=== PATIENT | female | born 1940 | race Caucasian/White ===

== ENCOUNTER → 2018-05-15 00:24 | Outpatient (CLI) | payer MEDICARE, BC, SELFPAY ==
--- NOTE | 2018-05-15 14:35 | DI.REPORT_ITS ---
SYMPTOM/DIAGNOSIS: SCREENING Z12.31 MAMMOGRAMS: Mammograms were interpreted according to the usual protocol including computer analysis with CAD system, tomosynthesis and C view imaging. Comparison with prior examinations. Breast density B. No masses or microcalcifications are seen. There is nothing to suggest malignancy. IMPRESSION: Negative mammogram. Category 1 -B. Routine screening is recommended. SA ASSESSMENT OF FINDINGS: Negative. Category 1. Patient will receive a letter notifying them of these results. BI-RADS category B. There are scattered areas of fibroglandular density.
--- NOTE | 2018-05-15 15:25 | DI.REPORT_ITS ---
SYMPTOMS/DIAGNOSIS: OSTEOPOROSIS, M85.88, CHRONIC PREDNISONE DEXA SCAN WITH JAI: Comparison is made with exams from 2007 and 2016. The JAI image shows no evidence of compression fractures. Some of the vertebral bodies are not well profiled due to scoliosis. There is a levoscoliosis and degenerative disc changes of increased sclerosis on the right side from L2 through L4. The findings are not significantly changed from 2016. There are no significant degenerative changes visible on the 2007 exam. The bone mineral density measurements of the lumbar spine correspond to a total Z score of 0, in the normal range. The least dense vertebral body is L1 with a T score of -1.0. Total bone mineral density is increased 7.4% when compared with 2016 and 15.1% when compared with 2007. The bone mineral density measurements of the left hip correspond to a total T score and femoral neck T score of -1.5, in the osteopenic range. This is not significantly changed from 2016, but is a 5.5% decrease when compared with 2006. The bone mineral density measurements of the left forearm correspond to a total T score of -2.9 and a T score of the distal third of the forearm of -3.8. This is not significantly changed from 2016. The forearm was not analyzed in 2007. IMPRESSION: Normal bone mineral density of the lumbar spine with increased density when compared with previous exams, part of which could be secondary to increasing degenerative changes and scoliosis. Osteopenia of the left hip. Osteoporosis of the left forearm without significant change.
== END ==
PROVIDERS: PCP Family Medicine; Visit Provider Family Medicine
DX: Z12.31 Encounter for screening mammogram for malignant neoplasm of breast (principal); M81.0 Age-related osteoporosis without current pathological fracture; M85.88 Other specified disorders of bone density and structure, other site; Z79.52 Long term (current) use of systemic steroids
CPT/HCPCS: 77063; 77067; 77080

== ENCOUNTER 2018-11-10 00:40 | Outpatient (CLI) | payer MEDICARE, BC, SELFPAY ==
--- NOTE | 2018-11-10 14:18 | DI.US_ITS ---
SYMPTOMS/DIAGNOSIS: MASS ON RT SIDE OF NECK, R22.1 SOFT TISSUE NECK ULTRASOUND: The palpable abnormality in the right supraclavicular area was scanned. There is a question of a 3.3 x 1.8 x 1.2 cm ill defined area of fatty attenuation when compared with the contralateral side. No fluid collection is seen. A neck CT is recommended for further evaluation.
== END 2018-11-10 01:00 ==
PROVIDERS: PCP Family Medicine; Visit Provider Family Medicine
DX: R22.1 Localized swelling, mass and lump, neck (principal)
CPT/HCPCS: 76536

== ENCOUNTER 2018-11-18 00:53 | Outpatient (CLI) | payer MEDICARE, BC, SELFPAY ==
--- NOTE | 2018-11-18 11:47 | DI.CT_ITS ---
SYMPTOMS/DIAGNOSIS: F/U US, NECK MASS, R22.1 CT SCAN OF THE NECK: Comparison is made with ultrasound dated which questioned an abnormality in the supraclavicular area. The patient questions a right sided mass. A marker was placed over this location. No mass is identified. There is no evidence of a discrete lipoma. Mild scarring is seen in the lung apices. A cyst is again noted in the anterior mediastinal fat anterior to the aorta, unchanged when compared with a [address] The submandibular, parotid and thyroid glands appear normal. The sinuses are clear. The orbits are unremarkable. Degenerative changes are seen in the lower cervical spine. The sinuses and mastoid air cells appear clear. The visualized portions of the brain are grossly normal. IMPRESSION: No evidence of a mass in the right supraclavicular area. No acute abnormality is identified.
[2018-11-18 12:29] LABS: ALT 33 U/L (12-78); AST 20 U/L (15-37); Albumin 4.1 g/dL (3.4-5.0); Alkaline Phosphatase 42 U/L (46-116); BUN 27 mg/dL (7-18); Bilirubin, Total 0.8 mg/dL (0.2-1.0); CREATININE 1.14 mg/dL (0.55-1.02); Calcium 9.6 mg/dL (8.5-10.1); Chloride 102 mmol/L (98-107); Estimated GFR 46.22 (mL/min/1.73m2); Glucose 97 mg/dL (70-100); Potassium 3.8 mmol/L (3.5-5.1); Sodium 142 mmol/L (136-145); Total Protein 7.6 g/dL (6.4-8.2)
[2018-11-18] MEDS: Omnipaque 350 MG/ML 100 ML BTL IV (13:49)
[2018-11-20 06:31] LABS: Vitamin D 25 Total 52.3 ng/ml (30-100)
== END 2018-11-18 01:13 ==
PROVIDERS: PCP Family Medicine; Visit Provider Family Medicine
DX: R22.1 Localized swelling, mass and lump, neck (principal); I10 Essential (primary) hypertension; E55.9 Vitamin D deficiency, unspecified
CPT/HCPCS: 36415; 70491; 80053; 82306; 82565; J3490

== ENCOUNTER 2019-05-14 00:59 | Outpatient (RCR) | payer MEDICARE, BC, SELFPAY ==
[2019-05-14] MEDS: Normal Saline Flush 10 ML SYR IVP (09:04)
== END 2019-06-13 23:59 | disposition home or self-care (01) ==
LOC: INF 00:59
PROVIDERS: PCP Family Medicine; Visit Provider Family Medicine
DX: M81.0 Age-related osteoporosis without current pathological fracture (principal); T38.0X5D Adverse effect of glucocorticoids and synthetic analogues, subsequent encounter
CPT/HCPCS: 96365; J3489

== ENCOUNTER 2019-11-16 01:35 | Outpatient (CLI) | payer MEDICARE, BC, SELFPAY ==
--- NOTE | 2019-11-16 14:00 | DI.US_ITS ---
APPROVED REPORT EXAM: Comprehensive 2D, Doppler, and color-flow Echocardiogram Patient Location: Out-Patient Custom Grinder: Hannah Gaspar RDCS ([facility]) Rhythm: NSR Indications: cardiac murmur r01.1, hypertension i10 Conclusion Left Ventricle : The left ventricle is normal size. The left ventricular systolic function is normal. The left ventricular ejection fraction is within the normal range. Mild left ventricular hypertrophy . There is normal LV segmental wall motion. Diastolic function was normal but there was evidence of i mpaired relaxation. LVEF is estimated to be 65-70%. Right Ventricle : The right ventricle is normal size. The right ventricular systolic function appears normal. Atria : The left atrium size is normal. The right atrium size is normal. Aortic Valve : Moderate aortic valve sclerosis. The aortic valve is likely tricuspid. Moderate to se merritt aortic stenosis (mean gradient 37 mmHg, aortic valve area by VTI was 1.02 cm???). Mild aortic re gurgitation. Mitral Valve : Mild mitral annular calcification. Trace to mild mitral regurgitation. No evidence of mitral valve stenosis. Tricuspid Valve : The tricuspid valve is not well visualized. Trace to mild tricuspid regurgitation. We have no prior echocardiogram on record for comparison. Wall motion Left Ventricle The left ventricle is normal size. The left ventricular systolic function is normal. The left ventric ular ejection fraction is within the normal range. Mild left ventricular hypertrophy. There is normal LV segmental wall motion. Diastolic function was normal but there was evidence of impaired relaxatio n. LVEF is estimated to be 65-70%. Right Ventricle The right ventricle is normal size. The right ventricular systolic function appears normal. Atria The left atrium size is normal. The right atrium size is normal. Aortic Valve Moderate aortic valve sclerosis. The aortic valve is likely tricuspid. Moderate to severe aortic sten osis (mean gradient 37 mmHg, aortic valve area by VTI was 1.02 cm???). Mild aortic regurgitation. Mitral Valve Mild mitral annular calcification. No evidence of mitral valve stenosis. Trace to mild mitral regurgi tation. Tricuspid Valve The tricuspid valve is not well visualized. Trace to mild tricuspid regurgitation. Pulmonic Valve Pulmonic valve is not well visualized. Great Vessels The aortic root is normal in size. The IVC is dilated, but collapses >50 % with inspiration. Estimate d RVSP is 28-36 mmHg. Pericardium There is no pericardial effusion. 2D Dimensions IVSd 1.25 cm F: 0.6-1.0 LV EDV A2C 58.1 mL PWd 1.20 cm F: 0.6 - 1.0 LV EDV A4C 54.6 mL LVDd 4.00 cm F: 3.8 - 5.2 LA Volume Index Biplane 25.2 mL/m2 LVDs 2.20 cm F: 2.2 - 3.5 LA Area A4C 16.27 cm2 Aortic Root 3.25 cm F: 2.7 - 3.3 LA Area A2C 15.49 cm2 RA Area A4C 11.14 cm2 EF AP4 73.1 % LVOT 2.15 cm (M/F) 1.5-2.5 EF AP2 63.3 % Ascending Aorta 3.40 cm F: 2.3 - 3.1 EF BP 66.6 % LVEF (Teich) 75.9 % IVC 2.30 cm LVEF (Gilliam's) 66.62 % F: 54 - 74 TAPSE 1.85 cm (M/F) <1.7 LV Volume 45.69 mL F: 46 - 106 LV Volume Index 25.38 mL/m2 F: 29 - 61 FS 44.15 % LV Diastology MV E' medial 0.060 (>0.07 m/s) E/A Ratio 0.6 LV E/e MED 13.95 (<14) TR Peak Velocity 2.69 m/s MV E' lateral 0.068 (>0.1 m/s) LV E/e LAT 12.45 (<14) LA vol/ BSA A2C s A-L 21.9 mL/m2 LA vol/ BSA A4C s A-L 26.4 mL/m2 Aortic Valve LVOT Area 3.77 cm2 AoV Area Vmax 0.98 cm2 LVOT Vmax 1.01 m/s AoV Area/ BSA (Vmax) 0.54 cm2/m2 LVOT Mean Javi. 0.82 m/s REGAN Mean Javi. 1.05 cm2 LVOT Peak Gr. 4.1 mmHg REGAN Mean Javi. Index 0.58 cm2/m2 LVOT Mean Gr. 2.8 mmHg LVOT VTI 0.237 m AoV Vmax 3.91 (0.5-1.3 m/s) AoV Mean Javi. 2.93 m/s AoV Peak Grad 61.2 mmHg LVOT SV 89.44 mL AoV Mean Grad 37.5 (<5 mmHg) AoV VTI 0.881 (0.18-0.25 m) VTI Ratio 0.27 AoV Area VTI 1.02 (2.5-4.5 cm2) AoV Area/ BSA (VTI) 0.56 cm/m2 Mitral Valve MV E Max Javi. 0.84 (0.4-1.3 m/s) MVA VTI 5.69 (4.0-6.0 cm2) MV A Velocity 1.30 (0.4-1.3 m/s) RVOT Peak Gr. 3.02 mmHg E/A Ratio 0.64 RVOT Mean Gr. 1.95 mmHg MV Decel. Time 273 (160-240 msec) MV PHT 79 msec MVA PHT 2.75 cm2 PV Peak Velocity 1.08 (0.5-1.5 m/s) RVOT Peak Javi. 0.87 m/s RVOT VTI 0.167 m Tricuspid Valve TR P. Gradient 28.9 mmHg TV Regurg Vmax 2.69 m/s RAP Estimate 8.00 mmHg RVSP 36.9 mmHg
== END 2019-11-16 01:55 ==
PROVIDERS: PCP Family Medicine; Visit Provider Family Medicine
DX: R01.1 Cardiac murmur, unspecified (principal); I10 Essential (primary) hypertension; I35.2 Nonrheumatic aortic (valve) stenosis with insufficiency
CPT/HCPCS: 93306

== ENCOUNTER → 2020-01-05 13:44 | Outpatient (BNVA) | payer MEDICARE, BC, SELFPAY | PROVIDERS: PCP Family Medicine; Referring Provider Family Medicine; Visit Provider Internal Medicine Cardiovascular Disease | DX: M31.6 Other giant cell arteritis (principal); I10 Essential (primary) hypertension; I35.0 Nonrheumatic aortic (valve) stenosis | CPT/HCPCS: 99203; 99443 ==

== ENCOUNTER 2020-05-10 21:22 | Outpatient (REF) | payer MEDICARE, BC, SELFPAY ==
[2020-05-10 21:38] LABS: HCT 40.3 % (36.0-46.0); MCH 30.9 pg (27.0-33.0); MCHC 32.3 % (32.0-36.0); MCV 95.7 fL (80-95); MPV 11.4 fL (8.0-11.0); Platelet Count 269 10^3/uL (130-400); RBC 4.21 10^6/uL (3.93-5.22); RDW 13.2 % (11.7-14.6); RDW-SD 46.5 fL; WBC 8.31 10^3/uL (4.4-10.8)
[2020-05-10 21:59] LABS: ALT 31 U/L (14-59); AST 17 U/L (15-37); Albumin 4.4 g/dL (3.4-5.0); Alkaline Phosphatase 41 U/L (46-116); Anion Gap 9.8 mmol/L (3-11); BUN 26 mg/dL (7-18); Bilirubin, Total 1.1 mg/dL (0.2-1.0); CO2 28.2 mmol/L (21.0-32.0); CREATININE 1.43 mg/dL (0.55-1.02); Calcium 9.7 mg/dL (8.5-10.1); Chloride 99 mmol/L (98-107); Estimated GFR 35.49 (mL/min/1.73m2); Glucose 109 mg/dL (74-106); Potassium 3.9 mmol/L (3.5-5.1); Sodium 137 mmol/L (136-145); Total Protein 7.5 g/dL (6.4-8.2)
[2020-05-10 22:16] LABS: ESR 19 mm/hr (0-30)
[2020-05-12 04:56] LABS: Vitamin D 25 Total 45.2 ng/ml (30-100)
== END 2020-05-10 21:42 ==
LOC: LBN 21:22
PROVIDERS: PCP Family Medicine; Visit Provider Family Medicine
DX: E55.9 Vitamin D deficiency, unspecified (principal); I10 Essential (primary) hypertension; M31.6 Other giant cell arteritis; M81.0 Age-related osteoporosis without current pathological fracture
CPT/HCPCS: 80053; 82306; 85027; 85652

== ENCOUNTER 2020-05-16 01:33 | Outpatient (RCR) | payer MEDICARE, BC, SELFPAY ==
[2020-05-16] MEDS: Normal Saline Flush 10 ML SYR IVP (09:02)
== END 2020-06-13 23:59 | disposition home or self-care (01) ==
LOC: INF 01:33
PROVIDERS: PCP Family Medicine; Visit Provider Family Medicine
DX: M31.6 Other giant cell arteritis (principal); Z79.52 Long term (current) use of systemic steroids; Z79.01 Long term (current) use of anticoagulants
CPT/HCPCS: 96365; J3489

== ENCOUNTER 2020-05-31 01:05 | Outpatient (CLI) | payer MEDICARE, BC, SELFPAY ==
--- NOTE | 2020-05-31 13:22 | DI.US_ITS ---
APPROVED REPORT EXAM: Comprehensive 2D, Doppler, and color-flow Echocardiogram Patient Location: Out-Patient [employer] Operator: Teresa Mendoza RDCS ([facility]) Indications: Aortic Stenosis Other Information Study Quality: Adequate Conclusion Left Ventricle : The left ventricle is normal size. The left ventricular systolic function is normal. The left ventricular ejection fraction is within the normal range. Mild concentric left ventricular hypertrophy. There is normal LV segmental wall motion. The diastolic function is abnormal. LVEF is 60 %. Right Ventricle : The right ventricle is normal size. The right ventricular systolic function is norm al. The RVSP is 21.1 mmHg. Atria : The left atrium size is normal. The right atrium size is normal. Aortic Valve : Aortic valve leaflets are moderately thickened. Aortic valve is probably trileaflet. M oderate to severe aortic stenosis. Peak aortic valve gradient is 38.2mmHg. Highest mean aortic valve gradient is 19.8mmHg. Calculated REGAN by the continuity equation is 1.03cm2. Trace aortic regurgitatio n. Mitral Valve : Moderate mitral annular calcification. No evidence of mitral valve stenosis. Trace to mild mitral regurgitation. Great Vessels : The aortic root is normal in size. The ascending aorta is normal in size. Aortic arch is not well visualized. IVC is normal in size and collapses >50% with inspiration. Compared to study from 11/16/2019: There is no significant change. Wall motion Left Ventricle The left ventricle is normal size. The left ventricular systolic function is normal. The left ventric ular ejection fraction is within the normal range. Mild concentric left ventricular hypertrophy. Ther e is normal LV segmental wall motion. The diastolic function is abnormal. There is no ventricular sep nayely defect visualized. LVEF is 60%. Right Ventricle The right ventricle is normal size. The right ventricular systolic function is normal. The RVSP is 21 .1 mmHg. Atria The left atrium size is normal. The right atrium size is normal. The interatrial septum is intact wit h no evidence for an atrial septal defect. Aortic Valve Aortic valve leaflets are moderately thickened. Aortic valve is probably trileaflet. Moderate to shane re aortic stenosis. Peak aortic valve gradient is 38.2mmHg. Highest mean aortic valve gradient is 19. 8mmHg. Calculated REGAN by the continuity equation is 1.03cm2. Trace aortic regurgitation. Mitral Valve Moderate mitral annular calcification. No evidence of mitral valve stenosis. Trace to mild mitral reg urgitation. Tricuspid Valve The tricuspid valve is normal in structure. There is no tricuspid valve stenosis. Trace tricuspid reg urgitation. Pulmonic Valve The pulmonary valve is normal in structure. There is no pulmonic valvular stenosis. Trace pulmonic re gurgitation. Great Vessels The aortic root is normal in size. The ascending aorta is normal in size. Aortic arch is not well vis ualized. IVC is normal in size and collapses >50% with inspiration. Pericardium There is no pericardial effusion. 2D Dimensions IVSD d PLAX 1.13 cm F: 0.6-1.0 LV Vol A2C d MOD 86.7 mL LVPW d PLAX 1.10 cm F: 0.6 - 1.0 LV Vol A4C d MOD 76.1 mL LVID d PLAX 4.01 cm F: 3.8 - 5.2 LA vol/ BSA A2C s A-L 20.6 mL/m2 LVDs 2.65 cm F: 2.2 - 3.5 LA vol/ BSA A4C s A-L 16.4 mL/m2 Ao Root d 2.89 cm F: 2.7 - 3.3 LA Vol/ BSA Biplane s A-L 19.4 mL/m2 RA Area A4C 12.69 cm2 LA Area A4C s MOD 12.52 cm2 RA Vol/ BSA A4C s A-L 15.1 mL/m2 LA Area A2C s MOD 14.81 cm2 Ao Asc Diam d 3.13 cm F: 2.3 - 3.1 LV EF A4C MOD 62.6 % LV EF Teichholz 61.9 % LV EF A2C MOD 59.2 % LVEF (Gilliam's) 60.97 % F: 54 - 74 LV EF Biplane MOD 61.0 % LV Volume 63.42 mL F: 46 - 106 SV 49.89 mL LV Volume Index 35.03 mL/m2 F: 29 - 61 SV Index 27.44 mL/m2 LV Vol Biplane MOD 81.8 mL FS 32.80 % M-Mode TAPSE 2.07 cm (M/F) >1.7 LV Diastology MV E' medial 0.053 (>0.07 m/s) E/A Ratio 0.5 LV E/e MED 11.55 (<14) MV E Vmax 0.61 (0.4-1.3 m/s) MV E' lateral 0.075 (>0.1 m/s) MV A Vmax 1.20 (0.4-1.3 m/s) LV E/e LAT 8.10 (<14) MV E/A Ratio 0.50 MV E/E' medial 11.56 MV E/E' lateral 8.15 Aortic Valve LVOT Area 3.38 cm2 AoV Area Vmax 1.03 cm2 LVOT Vmax 0.94 m/s AoV Area/ BSA (Vmax) 0.56 cm2/m2 LVOT Mean Javi. 0.65 m/s REGAN Mean Javi. 1.06 cm2 LVOT Peak Grad 3.5 mmHg REGAN Mean Javi. Index 0.58 cm2/m2 LVOT Mean Grad 2.0 mmHg AR DT 1552 msec LVOT VTI 0.226 m AR PHT 450 msec LVOT Diam s 2.05 cm AoV Vmax 3.09 m/s Velocity Ratio 0.30 AoV Mean Javi. 2.09 m/s AoV Peak Grad 38.2 mmHg LVOT SV 76.30 mL AoV Mean Grad 19.8 mmHg AoV VTI 0.559 m AoV Area VTI 1.36 cm2 AoV Area/ BSA (VTI) 0.75 cm/m2 Mitral Valve MV DT 428 (160-240 msec) MV PHT 124 msec MV Area PHT 1.77 cm2 Pulmonary Valve PV Vmax 1.20 (0.5-1.5 m/s) RVOT Peak Gr. 3.10 mmHg PV Peak Grad 5.8 mmHg RVOT Mean Gr. 1.50 mmHg PV Mean Grad 2.9 mmHg RVOT VTI 0.168 m PV VTI 0.201 m RVOT Vmax 0.88 m/s Tricuspid Valve TR Peak Grad 18.0 mmHg TR Vmax 2.13 m/s RA Pressure 3.00 mmHg RVSP (TR) 21.1 mmHg
== END 2020-05-31 01:25 ==
PROVIDERS: PCP Family Medicine; Visit Provider Family Medicine
DX: I35.2 Nonrheumatic aortic (valve) stenosis with insufficiency; I10 Essential (primary) hypertension
CPT/HCPCS: 93306

== ENCOUNTER → 2020-07-04 10:54 | Outpatient (BNVA) | payer MEDICARE, BC, SELFPAY | PROVIDERS: PCP Family Medicine; Referring Provider Family Medicine; Visit Provider Internal Medicine Cardiovascular Disease | DX: I35.0 Nonrheumatic aortic (valve) stenosis (principal); J44.9 Chronic obstructive pulmonary disease, unspecified; Z87.891 Personal history of nicotine dependence; I10 Essential (primary) hypertension | CPT/HCPCS: 99214 ==

== ENCOUNTER → 2021-01-03 10:56 | Outpatient (BNVA) | payer MEDICARE, BC, SELFPAY | PROVIDERS: PCP Family Medicine; Referring Provider Family Medicine; Visit Provider Internal Medicine Cardiovascular Disease | DX: I35.0 Nonrheumatic aortic (valve) stenosis (principal); I10 Essential (primary) hypertension; Z79.899 Other long term (current) drug therapy | CPT/HCPCS: 99214; 99213 ==

== ENCOUNTER 2021-05-15 14:43 | Outpatient (REF) | payer MEDICARE, BC, SELFPAY ==
[2021-05-15 18:57] LABS: HCT 39.5 % (36.0-46.0); HGB 12.4 g/dL (11.2-15.7); MCH 30.5 pg (27.0-33.0); MCHC 31.4 % (32.0-36.0); MCV 97.1 fL (80-95); MPV 11.3 fL (8.0-11.0); Platelet Count 276 10^3/uL (130-400); RBC 4.07 10^6/uL (3.93-5.22); RDW 13.3 % (11.7-14.6); RDW-SD 47.9 fL; WBC 9.17 10^3/uL (4.4-10.8)
[2021-05-15 19:36] LABS: ALT 29 U/L (14-59); AST 13 U/L (15-37); Albumin 4.4 g/dL (3.4-5.0); Alkaline Phosphatase 46 U/L (46-116); Anion Gap 7.3 mmol/L (3-11); BUN 32 mg/dL (7-18); CO2 30.7 mmol/L (21.0-32.0); CREATININE 1.4 mg/dL (0.55-1.02); Calcium 9.5 mg/dL (8.5-10.1); Chloride 101 mmol/L (98-107); Estimated GFR 36.27 (mL/min/1.73m2); Glucose 105 mg/dL (74-106); Potassium 4.3 mmol/L (3.5-5.1); Sodium 139 mmol/L (136-145); Total Protein 7.7 g/dL (6.4-8.2)
== END 2021-05-15 14:44 | disposition home or self-care (01) ==
LOC: LBN 14:43
PROVIDERS: PCP Family Medicine; Visit Provider Family Medicine
DX: I10 Essential (primary) hypertension (principal); M31.6 Other giant cell arteritis
CPT/HCPCS: 80053; 85027

== ENCOUNTER 2021-05-16 02:04 | Outpatient (CLI) | payer MEDICARE, BC, SELFPAY ==
--- NOTE | 2021-05-16 08:15 | DI.RAD_ITS ---
Exam(s) XR LUMBAR SPINE COMPLETE EXAM: XR LUMBAR SPINE COMPLETE CLINICAL HISTORY: LOW BACK PAIN, M54.9 TECHNIQUE: COMPARISON: CR LUMBAR SPINE COMPLETE from 02/14/2012 FINDINGS: Seven views were obtained. There is a moderate left convex lumbar scoliosis. There are moderate deg enerative changes of the SI joints. There is disc space loss of height throughout the lumbar region with multilevel vacuum disc phenomeno n consistent with disc degeneration. There is multilevel endplate and facet hypertrophic change. Th ere is no evidence erosive or destructive lesion. There is no evidence of compression fracture. The re is no evidence of spondylolysis or spondylolisthesis. IMPRESSION: Degenerative changes of the lumbar spine as described above RADIATION DOSE DELIVERED: Total DLP
--- NOTE | 2021-05-16 08:15 | DI.RAD_ITS ---
Exam(s) XR KNEE RT 3V AP,LAT,NEMESIO EXAM: XR KNEE RT 3V AP,LAT,NEMESIO CLINICAL HISTORY: knee pain,RT M25.561 TECHNIQUE: COMPARISON: No exams were available for comparison FINDINGS: Three views were obtained. There is severe narrowing of the medial tibiofemoral cartilaginous joint space. Remainder of the cartilaginous joint spaces appear fairly well maintained. There is mild marginal osteophyte formation at all 3 joints of the knee. There is a small superior p atellar enthesophyte. There is slight sclerosis of the medial femoral condyle and medial tibial plat eau. IMPRESSION: DJD predominantly involving medial tibiofemoral joint RADIATION DOSE DELIVERED: Total DLP
== END 2021-05-16 02:24 ==
PROVIDERS: PCP Family Medicine; Visit Provider Family Medicine
DX: M47.816 Spondylosis without myelopathy or radiculopathy, lumbar region (principal); M17.11 Unilateral primary osteoarthritis, right knee
CPT/HCPCS: 73562; 96365; 72110; J3489

== ENCOUNTER 2021-05-16 02:52 | Outpatient (RCR) | payer MEDICARE, BC, SELFPAY ==
[2021-05-16] MEDS: Normal Saline Flush 10 ML SYR IVP (10:34)
== END 2021-06-13 23:59 | disposition home or self-care (01) ==
LOC: INF 02:52
PROVIDERS: PCP Family Medicine; Visit Provider Family Medicine
DX: M31.6 Other giant cell arteritis (principal); Z79.52 Long term (current) use of systemic steroids
CPT/HCPCS: 96365; J3489

== ENCOUNTER 2021-06-06 03:09 | Outpatient (CLI) | payer MEDICARE, BC, SELFPAY ==
--- NOTE | 2021-06-06 07:45 | DI.MRI_ITS ---
Exam(s) MR LUMBAR SPINE WO EXAM: MR LUMBAR SPINE WO CLINICAL HISTORY: severe claudication with any ambulation, LUMBAR STENOSIS, M48.062 TECHNIQUE: Multiplanar multisequence MRI of the Lumbar Spine was performed. CONTRAST MATERIAL: IV Contrast: mL of Dotarem contrast administered. COMPARISON: CR XR LUMBAR SPINE COMPLETE from 05/16/2021 FINDINGS: Bones: The last intervertebral disc space is designated the L5/S1 level for the numbering purpose of this examination. The vertebral body heights are well maintained. . hemangioma L2. The marrow signa l characteristics are unremarkable. Levo rotoscoliosis. Cord: The conus tip ends at the T12 level. It is of normal size and signal intensity. T12-L1: Endplate osteophytes and mild concentric disc bulging. Mild loss of disc height. L1-2: Endplate osteophytes and disc bulging and mild loss of disc height. Mild left neural foramina l narrowing. L2-3: Endplate osteophytes and disc space narrowing, eccentric toward the right. Loss of disc height greater on the right. Facet degenerative changes which are prominent on the right side, causing sev ere neural foraminal narrowing. Mild left neural foraminal narrowing. Mild central canal stenosis. L3-4: Asymmetric loss of disc height and broad-based disc osteophytes, eccentric toward the right. Facet degenerative changes and ligamentous hypertrophy, more prominent on the right. Severe right ne ural foraminal encroachment. Extruded discs disc material posterior to the L4 vertebral body, in the right paracentral region. Severe central canal stenosis. L4-5: Endplate osteophytes and mild loss of disc height as well as disc bulging, eccentric toward th e right. Facet degenerative changes, more prominent on the left. Mild left neural foraminal narrowi ng and mild central canal stenosis. L5-S1: Mild loss of disc height and endplate osteophytes projecting posteriorly. Mild disc bulging. Left-sided prominent facet degenerative changes causing severe neural foraminal narrowing. Mild ce ntral canal stenosis. Soft tissues: The visualized SI joints and sacrum are well maintained. The paraspinal soft tissues ar e unremarkable. IMPRESSION: Multi level degenerative disc changes and facet degenerative changes as well as scoliosis.. L3-4 disc herniation in the right paracentral location with inferior extrusion of disc material causi ng severe central canal stenosis and severe right neural foraminal narrowing.. DATA REPOSITORY:
== END 2021-06-06 03:29 ==
PROVIDERS: PCP Family Medicine; Visit Provider Family Medicine
DX: M48.062 Spinal stenosis, lumbar region with neurogenic claudication (principal); M25.78 Osteophyte, vertebrae; M51.26 Other intervertebral disc displacement, lumbar region; M41.9 Scoliosis, unspecified; M51.27 Other intervertebral disc displacement, lumbosacral region
CPT/HCPCS: 72148

== ENCOUNTER 2021-06-27 01:10 | Outpatient (CLI) | payer MEDICARE, BC, SELFPAY ==
--- NOTE | 2021-06-27 10:24 | DI.US_ITS ---
APPROVED REPORT EXAM: Comprehensive 2D, Doppler, and color-flow Echocardiogram Patient Location: Out-Patient Indications: Aortic Stenosis, HTN Other Information Study Quality: Adequate Conclusion Left Ventricle : The left ventricle is normal size. The left ventricular systolic function is normal. The left ventricular ejection fraction is within the normal range. Borderline concentric left ventri cular hypertrophy. There is normal LV segmental wall motion. The left ventricular diastolic function is normal. LVEF is 57%. Right Ventricle : The right ventricle is normal size. The right ventricular systolic function is norm al. The RVSP is 29.6mmHg. Atria : The left atrium size is normal. The right atrium size is normal. Aortic Valve : Aortic valve is calcified. Trace aortic regurgitation. Moderate aortic stenosis. Peak aortic valve gradient is 52.3mmHg. Highest mean aortic valve gradient is 26.8mmHg. Calculated REGAN by the continuity equation is .91cm2. Great Vessels : The aortic root is normal in size. The ascending aorta is mildly dilated. IVC is norm al in size and collapses >50% with inspiration. Wall motion Left Ventricle The left ventricle is normal size. The left ventricular systolic function is normal. The left ventric ular ejection fraction is within the normal range. Borderline concentric left ventricular hypertrophy . There is normal LV segmental wall motion. The left ventricular diastolic function is normal. There is no ventricular septal defect visualized. LVEF is 57%. Right Ventricle The right ventricle is normal size. The right ventricular systolic function is normal. The RVSP is 29 .6mmHg. Atria The left atrium size is normal. The right atrium size is normal. The interatrial septum is intact wit h no evidence for an atrial septal defect. Aortic Valve Aortic valve is calcified. Moderate aortic stenosis. Peak aortic valve gradient is 52.3mmHg. Highest mean aortic valve gradient is 26.8mmHg. Calculated REGAN by the continuity equation is .91cm2. Trace ao rtic regurgitation. Mitral Valve Mild mitral annular calcification. No evidence of mitral valve stenosis. Trace mitral regurgitation. Tricuspid Valve The tricuspid valve is normal in structure. There is no tricuspid valve stenosis. Trace tricuspid reg urgitation. The RVSP is mmHg. Pulmonic Valve The pulmonary valve is normal in structure. There is no pulmonic valvular stenosis. Trace pulmonic re gurgitation. Great Vessels The aortic root is normal in size. The ascending aorta is mildly dilated. IVC is normal in size and c ollapses >50% with inspiration. Pericardium There is no pericardial effusion. 2D Dimensions IVSD d PLAX 1.06 cm F: 0.6-1.0 LV Vol A2C d MOD 79.0 mL LVPW d PLAX 1.06 cm F: 0.6 - 1.0 LV Vol A4C d MOD 90.9 mL LVID d PLAX 4.18 cm F: 3.8 - 5.2 LA vol/ BSA A2C s A-L 25.4 mL/m2 LVDs 2.90 cm F: 2.2 - 3.5 LA vol/ BSA A4C s A-L 21.6 mL/m2 Ao Root d 2.95 cm F: 2.7 - 3.3 LA Vol/ BSA Biplane s A-L 23.5 mL/m2 RA Area A4C 11.76 cm2 LA Area A4C s MOD 15.39 cm2 RA Vol/ BSA A4C s A-L 16.1 mL/m2 LA Area A2C s MOD 16.75 cm2 Ao Asc Diam d 3.58 cm F: 2.3 - 3.1 LV EF A4C MOD 55.9 % LV EF Teichholz 56.9 % LV EF A2C MOD 56.2 % LVEF (Gilliam's) 55.81 % F: 54 - 74 LV EF Biplane MOD 55.8 % LV Volume 67.41 mL F: 46 - 106 SV 48.63 mL LV Volume Index 37.03 mL/m2 F: 29 - 61 SV Index 26.61 mL/m2 LV Vol Biplane MOD 87.1 mL FS 29.45 % M-Mode TAPSE 2.13 cm (M/F) >1.7 LV Diastology MV E' medial 0.076 (>0.07 m/s) E/A Ratio 0.7 LV E/e MED 10.70 (<14) MV E Vmax 0.81 (0.4-1.3 m/s) MV E' lateral 0.066 (>0.1 m/s) MV A Vmax 1.15 (0.4-1.3 m/s) LV E/e LAT 12.30 (<14) MV E/A Ratio 0.68 MV E/E' medial 10.72 MV E/E' lateral 12.31 Aortic Valve LVOT Area 3.40 cm2 AoV Area Vmax 0.96 cm2 LVOT Vmax 0.97 m/s AoV Area/ BSA (Vmax) 0.53 cm2/m2 LVOT Mean Javi. 0.62 m/s REGAN Mean Javi. 0.86 cm2 LVOT Peak Grad 3.8 mmHg REGAN Mean Javi. Index 0.47 cm2/m2 LVOT Mean Grad 1.8 mmHg AR DT 2075 msec LVOT VTI 0.231 m AR PHT 602 msec LVOT Diam s 2.05 cm AoV Vmax 3.47 m/s Velocity Ratio 0.27 AoV Mean Javi. 2.46 m/s AoV Peak Grad 48.2 mmHg LVOT SV 78.45 mL AoV Mean Grad 26.8 mmHg AoV VTI 0.797 m AoV Area VTI 0.98 cm2 AoV Area/ BSA (VTI) 0.54 cm/m2 Mitral Valve MV DT 294 (160-240 msec) MV PHT 85 msec MV Area PHT 2.58 cm2 MV VTI 0.315 m MV Area VTI 2.49 (4.0-6.0 cm2) Pulmonary Valve PV Vmax 0.97 (0.5-1.5 m/s) RVOT Peak Gr. 2.49 mmHg PV Peak Grad 3.7 mmHg RVOT Mean Gr. 1.50 mmHg PV Mean Grad 2.0 mmHg RVOT VTI 0.137 m PV VTI 0.226 m RVOT Vmax 0.79 m/s Tricuspid Valve TR Peak Grad 26.6 mmHg TR Vmax 2.58 m/s RA Pressure 3.00 mmHg RVSP (TR) 29.6 mmHg
== END 2021-06-27 01:30 ==
PROVIDERS: PCP Family Medicine; Visit Provider Internal Medicine Cardiovascular Disease
DX: I10 Essential (primary) hypertension (principal); I35.0 Nonrheumatic aortic (valve) stenosis; I35.8 Other nonrheumatic aortic valve disorders; I77.810 Thoracic aortic ectasia
CPT/HCPCS: 93306

== ENCOUNTER → 2021-07-06 11:18 | Outpatient (BNVA) | payer MEDICARE, BC, SELFPAY | PROVIDERS: PCP Family Medicine; Referring Provider Family Medicine; Visit Provider Internal Medicine Cardiovascular Disease | DX: I35.0 Nonrheumatic aortic (valve) stenosis (principal); I10 Essential (primary) hypertension; M48.062 Spinal stenosis, lumbar region with neurogenic claudication; R06.02 Shortness of breath | CPT/HCPCS: 99214 ==

== ENCOUNTER 2021-07-22 15:54 | Inpatient (IN) | payer MEDICARE, BC, SELFPAY ==
[2021-07-22] VITALS (18 sets, daily range): BP systolic 113–162; BP diastolic 65–78; PULSE 56–115; RESP 16–40; TEMP 37–38.4; O2SAT 89–100
--- NOTE | 2021-07-22 16:00 | RT.EKG_ITS ---
APPROVED REPORT Exam: Resting ECG Reason for Exam: confusion Patient Location: E HR:104 bpm ECG Measurements Heart Rate 104 AXIS WV 175 P 58 QRSd 78 QRS 8 QT 344 T 47 QTc 452 Conclusion Sinus tachycardia...rate> 99 Probable left atrial enlargement...P >50mS, <-0.10mV V1
--- NOTE | 2021-07-22 16:00 | DI.RAD_ITS ---
Exam(s) XR CHEST 2V PA LATERAL EXAM: XR CHEST 2V PA LATERAL CLINICAL HISTORY: fever. TECHNIQUE: 2D digital imaging was performed. COMPARISON: CR CHEST 2 VIEWS PA,LAT from 11/25/2008 FINDINGS: Heart size is normal. The mediastinum is not widened. Right lung is clear. Subtle haziness over lower half of the left lung may be exaggerated by portable technique but cannot exclude occlude pulmonary pathology, particularly since there is an irregularit y of the ipsilateral left 6 rib which was not previously present on the 2009 image IMPRESSION: Possible subtle left lung findings. If clinically indicated follow-up CT scan can be performed. DATA REPOSITORY: RADIATION DOSE DELIVERED:
--- NOTE | 2021-07-22 16:28 | DI.CT_ITS ---
Exam(s) CT HEAD WO EXAM: CT HEAD WO CLINICAL HISTORY: fall, confusion. TECHNIQUE: Imaging Protocol: Axial computed tomography images with coronal and sagittal reformatted images were created and reviewed COMPARISON: No exams were available for comparison FINDINGS: There are no skull fractures nor fluid in the visualized paranasal sinuses. There is no evidence of intracranial hemorrhage, mass effect, or shift of midline structures. There are no extra-axial fluid collections. The ventricles are not enlarged or shifted and there is no blo od within the ventricular system nor within the basal cisterns. There is relatively symmetrical periventricular hypodensity consistent with chronic small vessel isch emic white matter changes. IMPRESSION: No acute intracranial findings on this noninfused CT scan of the brain. Chronic small-vessel white matter ischemic changes. RADIATION DOSE DELIVERED: 799.94mGy.cm Total DLP DATA REPOSITORY: All CT scans at this facility are submitted to the National Radiology Data Registry (NRDR) Dose Index Registry (DIR) with the [employer] ([employer]). RADIATION OPTIMIZATION: All CT scans at this facility use at least one of these dose optimization te chniques: automated exposure control; mA and/or kV adjustment per patient size (includes targeted exa ms where dose is matched to clinical indication); or iterative reconstruction.
[2021-07-22] MEDS: Normal Saline 1,000 ML 500 ML IV (16:43)
[2021-07-22 16:57] LABS: Bilirubin Negative (Negative); Blood Moderate (Negative); Clarity Cloudy (Clear); Glucose Negative (Negative); Ketones Trace mg/dL (Negative); Leukocyte Esterase Small (Negative); Nitrite Negative (Negative); Specific Gravity >= 1.030 (1.005-1.025); Urobilinogen 0.2 EU/dL (Up TO 0.2); pH 5.5 (5-8)
[2021-07-22 16:59] LABS: Abs Immature Grans 0.07 10^3/uL (0.0-0.06); Absolute Basophil Count 0.03 10^3/uL (0.0-0.2); Absolute Lymphocyte Count 0.57 10^3/uL (1.2-3.4); Absolute Monocyte Count 1.16 10^3/uL (0.1-0.8); Absolute Neutrophil Count 10.81 10^3/uL (1.2-6.7); Basophils % 0.2; HCT 35.5 % (36.0-46.0); HGB 11.8 g/dL (11.2-15.7); Immature Grans % 0.6; Lymphocytes % 4.5; MCHC 33.2 % (32.0-36.0); MCV 93.2 fL (80-95); Monocytes % 9.2; Neutrophils % 85.5; Nucleated RBC 0 %; Platelet Count 218 10^3/uL (130-400); RBC 3.81 10^6/uL (3.93-5.22); RDW 13.3 % (11.7-14.6); RDW-SD 45.7 fL; WBC 12.64 10^3/uL (4.4-10.8)
--- NOTE | 2021-07-22 17:09 | W.ED.GENAD ---
Discharge Plan Disposition Patient Disposition: [facility] INPATIENT Condition: Stable Discharge Details Chief Complaint: RespSymp Clinical Impression: Sepsis, Acute UTI Primary Care Provider: Zoey Lucas ED Provider: Issac De La Torre Home Meds and New Rx's Prescriptions: No Action losartan 25 mg tablet 50 mg PO DAILY Qty: 90 RF: 4 cholecalciferol (vitamin D3) 1,000 UNIT capsule 2,000 unit PO DAILY RF: 0 calcium carbonate-vitamin D3 [Caltrate with Vitamin D3] 1 EACH tablet 2 ea PO DAILY RF: 0 escitalopram oxalate [Lexapro] 10 mg tablet 10 mg PO QAM Qty: 90 RF: 4 hydrochlorothiazide 25 mg tablet 25 mg PO DAILY Qty: 90 RF: 12 metoprolol succinate 25 mg tablet extended release 24 hr 25 mg PO DAILY Qty: 90 RF: 4 aspirin 81 mg tablet,delayed release (DR/EC) 81 mg PO DAILY Qty: 100 RF: 12 triamcinolone acetonide 0.1 % cream 1 applic topical BID Qty: 80 RF: 0 prednisone 5 mg tablet 5 mg PO DAILY Qty: 90 RF: 4 amlodipine 5 mg tablet 5 mg PO DAILY Qty: 90 RF: 12 prednisone 1 mg tablet 1 - 3 mg PO DAILY Qty: 270 RF: 4 Medical Decision Making 81-year-old female with a history of giant cell arteritis, here with fever, dysuria, nausea vomiting, headache with some mild neck discomfort. Concern for urinary tract infection versus meningitis. Screening EKG was reviewed and interpreted by me: Please see report, sinus tachycardia 104 bpm. Probable left atrial enlargement. CT head was interpreted by radiology: IMPRESSION: No acute intracranial findings on this noninfused CT scan of the brain. Chronic small-vessel white matter ischemic changes. Chest x-ray reviewed and interpreted by radiology:Heart size is normal. The mediastinum is not widened. Right lung is clear. Subtle haziness over lower half of the left lung may be exaggerated by portable technique but cannot exclude occlude pulmonary pathology, particularly since there is an irregularity of the ipsilateral left 6 rib which was not previously present on the 2009 image Labs reviewed and leukocytosis noted. Lactic acidosis noted. Initial urinalysis contaminated. Repeat urinalysis based on catheterized specimen consistent with urinary tract infection. Lumbar puncture was performed to assess for meningitis. I called and spoke with Dr. Bob who will admit the patient. CSF is pending at time of admission and she will follow up on this. Ceftriaxone 2 g IV has been administered. Solu-Medrol 60 mg IV has been administered. HPI General Mode of arrival: EMS. Date/Time Provider Initiated Documentation: 07/22/21 16:07. Limitations to Documentation: no limitations. Information obtained by: patient and EMS. HPI Narrative: 81-year-old female with history of giant cell arteritis on chronic steroids, here with 3 days of fever, dysuria, headache with associated nausea and vomiting. Patient also notes some shortness of breath and cough with potential Covid exposure. Denies associated chest pain. Symptoms are moderate. No modifiers. Related Data Home Medications Medication Instructions Recorded Confirmed calcium carbonate-vitamin D3 2 ea PO DAILY 03/13/13 07/06/21 [Caltrate 600 + D Tablet] cholecalciferol (vitamin D3) 2,000 unit PO DAILY 03/13/13 07/06/21 escitalopram oxalate 10 mg tablet 10 mg PO QAM #90 tab-cap 10/06/20 07/06/21 hydrochlorothiazide 25 mg tablet 25 mg PO DAILY #90 tab 10/06/20 07/06/21 metoprolol succinate 25 mg 25 mg PO DAILY #90 tab 10/06/20 07/06/21 tablet,extended release 24 hr losartan 25 mg tablet 50 mg PO DAILY #90 tab 01/03/21 07/06/21 aspirin 81 mg tablet,delayed 81 mg PO DAILY #100 tab-cap 03/14/21 07/06/21 release triamcinolone acetonide 0.1 % 1 applic TOPICAL BID #80 g 03/21/21 07/06/21 topical cream amlodipine 5 mg tablet 5 mg PO DAILY #90 tab-cap 04/11/21 07/06/21 prednisone 5 mg tablet 5 mg PO DAILY #90 tab 04/11/21 07/06/21 prednisone 1 mg tablet 1 - 3 mg PO DAILY #270 tab 06/07/21 07/06/21 Previous Rx's Medication Instructions Recorded escitalopram oxalate 10 mg tablet 10 mg PO QAM #90 tab-cap 10/06/20 hydrochlorothiazide 25 mg tablet 25 mg PO DAILY #90 tab 10/06/20 metoprolol succinate 25 mg 25 mg PO DAILY #90 tab 10/06/20 tablet,extended release 24 hr losartan 25 mg tablet 50 mg PO DAILY #90 tab 01/03/21 aspirin 81 mg tablet,delayed 81 mg PO DAILY #100 tab-cap 03/14/21 release triamcinolone acetonide 0.1 % 1 applic TOPICAL BID #80 g 03/21/21 topical cream amlodipine 5 mg tablet 5 mg PO DAILY #90 tab-cap 04/11/21 prednisone 5 mg tablet 5 mg PO DAILY #90 tab 04/11/21 prednisone 1 mg tablet 1 - 3 mg PO DAILY #270 tab 06/07/21 Allergies Allergy/AdvReac Type Severity Reaction Status Date / Time doxazosin Allergy Severe RASH Verified 07/22/21 16:55 nickel Allergy Severe SEVERE RASH Verified 07/22/21 16:55 lisinopril Allergy Intermediate HIVES Verified 07/22/21 16:55 Beta-Blockers AdvReac Intermediate WEAKNESS Verified 07/22/21 16:55 (Beta-Adrenergic Bloc General Stated Complaint: RespSymp KARIME: 3 Review of Systems All systems reviewed & are unremarkable except as noted in HPI and below Constitutional Constitutional: Reports fever(s) Gastrointestinal Gastrointestinal: Reports as per HPI [facility] Medical History Anxiety (08/30/15) Asthma Cataract (11/19/16) Chronic cough Chronic obstructive lung disease (03/31/07) PFT's showing decreased FEV1 Essential hypertension (10/19/13) Ganglion of tendon sheath 01/11/05 Ganglion cyst of R foot Giant cell arteritis (10/27/15) H/O unilateral nephrectomy left; congenital deformity History of unilateral nephrectomy Hyperlipidemia Impacted cerumen Impacted cerumen Insomnia (10/08/17) Left leg swelling 02/17/15 Mass of right side of neck (02/28/16) 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; 1983 Lobectomy; 03/20 Neg CXR & Barium swallow Primary malignant neoplasm of lung (09/12/83) Right hip pain (09/06/15) Skin lesion of face (08/30/15) 4mm by 2mm left upper lip Vitamin D deficiency (01/19/09) Surgical History Cholecystectomy (~1979) Extraction of cataract 12/05/16-[facility] [place] Lobectomy (~1983) left upper lobectomy; 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 S/P cholecystectomy S/P lobectomy of lung 10/14/83 left upper lobectomy; carcinoid tumor left lung Status post cholecystectomy Status post lobectomy of lung Family History Mother , 56 Melanoma Father , 73 Stroke Sister Essential hypertension Intestines cancer lower intestine Brother Essential hypertension Hyperlipidemia Hypertension Brother Essential hypertension Heart disease BYPASS Hyperlipidemia Maternal Grandfather Stroke Paternal Grandfather Cancer Maternal Grandmother Kidney malignancy Paternal Grandmother Cancer Son Essential hypertension Hyperlipidemia Son No problems noted. Daughter No problems noted. Social History Smoking/Tobacco Use Status: Former Tobacco Use Quit Date: 10/14/83 Tobacco: How many years used: 20 Second Hand Exposure: Yes Smoking risk assessment performed?: Yes Alcohol Intake: current Alcohol Intake frequency: holidays/special occasions only Alcohol type: wine Drug use: Never Substance use type: does not use Caregiver/Support person: No Household members: none Housing: house Do you need help understanding health information?: Never Pets and animals: No Sexually active: No Do you think of yourself as: straight/heterosexual Current gender identity: female What is your relationship status?: How often do you talk on the phone with friends or family?: twice per week How often do you get together with friends or relatives?: once per week How often do you attend orthodox or latter-day services?: 4 or more times per year Do you belong to any clubs or organized social groups?: yes Panel score (0-1 are the most socially isolated patients): 3 What type of physical activity do you participate in: none [place]/Faith: Religion Special [place] needs: No Seatbelt use: always Drive intox or ride w/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 Do you feel safe at home: Yes Do you feel safe in your relationship?: Yes Exam Const General: cooperative and no acute distress HENMT Head: normocephalic and atraumatic Mouth: moist mucous membranes Eyes Conjunctivae: normal conjunctivae Sclera: normal sclerae Neck Neck: trachea midline and supple Other: Some pain with movement of her neck Resp Auscultation: clear to auscultation bilaterally, no rales, no rhonchi and no wheezes Cardio Rate: tachycardic Rhythm: regular rhythm GI Palpation: soft, not firm, no guarding, no masses, not rigid and nontender Skin General skin exam: no rashes or lesions noted Neuro General: patient alert, patient awake and tone normal Cognition: abnormal cognition (Mildly confused) Extrem General: no edema Psych Appearance: grossly normal Speech and Movement: speech and movement normal Course Vital Signs Vital signs: Vital Signs Temperature 37.3 C 07/22/21 16:18 Pulse 56 L 07/22/21 16:18 Respiratory Rate 16 07/22/21 16:18 Blood Pressure 162/78 H 07/22/21 16:18 Pulse Oximetry 89 L 07/22/21 16:18 Temperature 37.0 C 07/22/21 16:42 Temperature Source Oral 07/22/21 16:18 Pulse 103 H 07/22/21 16:42 Respiratory Rate 16 07/22/21 16:42 Respiratory Effort Labored 07/22/21 16:54 Blood Pressure 162/78 H 07/22/21 16:42 Blood Pressure Position Sitting 07/22/21 16:42 Pulse Oximetry 93 07/22/21 16:42 Oxygen Delivery Method Room Air 07/22/21 16:42 Oxygen Flow Rate 0 07/22/21 16:42 Pain Level 0 07/22/21 16:42 Lab/Test Results Lab/Test Results: 07/22/21 16:07 Blood Blood Culture - Pending 07/22/21 16:07 Blood Blood Culture - Pending Laboratory Tests Range/Units 07/22/21 07/22/21 15:55 16:32 WBC (4.4-10.8) 10^3/uL 12.64 H RBC (3.93-5.22) 10^6/uL 3.81 L Hgb (11.2-15.7) g/dL 11.8 Hct (36.0-46.0) % 35.5 L MCV (80-95) fL 93.2 MCH (27.0-33.0) pg 31.0 MCHC (32.0-36.0) % 33.2 RDW (11.7-14.6) % 13.3 Plt Count (130-400) 10^3/uL 218 MPV (8.0-11.0) fL 11.0 Immature Gran % 0.6 Neutrophils % 85.5 Lymphocytes % 4.5 Monocytes % 9.2 Eosinophils % 0.0 Basophils % 0.2 Nucleated RBC % % 0 Absolute Neutrophils (1.2-6.7) 10^3/uL 10.81 H Absolute Lymphocytes (1.2-3.4) 10^3/uL 0.57 L Absolute Monocytes (0.1-0.8) 10^3/uL 1.16 H Absolute Eosinophils (0.0-0.7) 10^3/uL 0.00 Absolute Basophils (0.0-0.2) 10^3/uL 0.03 Urine Color (Yellow) Yellow Urine Clarity (Clear) Cloudy Urine pH (5-8) 5.5 Ur Specific [place] (1.005-1.025) >= 1.030 H Urine Protein (Negative) mg/dL 100 H Urine Ketones (Negative) mg/dL Trace H Urine Blood (Negative) Moderate H Urine Nitrite (Negative) Negative Urine Bilirubin (Negative) Negative Urine Urobilinogen (Up TO 0.2) EU/dL 0.2 Ur Leukocyte Esterase (Negative) Small H Urine Glucose (Negative) mg/dL Negative Procedures Lumbar Puncture Time Out Performed: Yes Patient Position: sitting upright/leaning forward Skin Prep: Povidone-Iodine 1% Local Anesthetic: Lidocaine 1% Amount of anesthesia used (mL): 5 Spinal Needle Gauge: 20G Interspace Used: L3-L4 Fluid Initially Obtained: clear Complications: none
[2021-07-22 17:15] LABS: ALT 26 U/L (14-59); AST 27 U/L (15-37); Albumin 3.4 g/dL (3.4-5.0); Alkaline Phosphatase 61 U/L (46-116); Anion Gap 11.8 mmol/L (3-11); BUN 30 mg/dL (7-18); Bilirubin, Total 0.7 mg/dL (0.2-1.0); CO2 26.2 mmol/L (21.0-32.0); CREATININE 1.9 mg/dL (0.55-1.02); Calcium 8.8 mg/dL (8.5-10.1); Chloride 97 mmol/L (98-107); Estimated GFR 25.44 (mL/min/1.73m2); Glucose 133 mg/dL (74-106); Potassium 3.1 mmol/L (3.5-5.1); Sodium 135 mmol/L (136-145); Total Protein 7.7 g/dL (6.4-8.2)
[2021-07-22 17:17] LABS: Lactate 2.5 mmol/L (0.6-1.4)
--- NOTE | 2021-07-22 17:22 | DI.VRAD_ITS ---
PROCEDURE INFORMATION: Exam: CT Head Without Contrast Exam date and time: 07/22/2021 4:09 PM Age: 81 years old Clinical indication: Injury or trauma; Fall; Concussion/head injury TECHNIQUE: Imaging protocol: Computed tomography of the head without contrast. COMPARISON: US soft tissue head or neck 11/10/2018 2:22 PM FINDINGS: Brain: Normal. No hemorrhage. Unremarkable white matter. No mass effect. Cerebral ventricles: No ventriculomegaly. Paranasal sinuses: Visualized sinuses are unremarkable. No fluid levels. Mastoid air cells: Visualized mastoid air cells are well aerated. Auditory system: Mild soft tissue debris within the bilateral external auditory canals most likely compatible with cerumen. Bones/joints: Unremarkable. No acute fracture. Soft tissues: Unremarkable. IMPRESSION: No evidence of acute intracranial abnormality. Dictated and Authenticated by: Troy Stephenson MD. Ordering:CRISTIANA Russ MD
--- NOTE | 2021-07-22 17:24 | DI.VRAD_ITS ---
PROCEDURE INFORMATION: Exam: XR Chest Exam date and time: 07/22/2021 4:09 PM Age: 81 years old Clinical indication: Fever TECHNIQUE: Imaging protocol: XR of the chest. Views: 2 views. COMPARISON: CT Neck^NECK ST W ROUTINE (Adult) 11/18/2018 1:20 PM FINDINGS: Lungs: Unremarkable. No consolidation. Pleural spaces: Unremarkable. No pleural effusion. No pneumothorax. Heart/Mediastinum: Unremarkable. No cardiomegaly. Bones/joints: Unremarkable. IMPRESSION: No acute findings. Dictated and Authenticated by: Troy Stephenson MD. Ordering:CRISTIANA Russ MD
[2021-07-22 17:25] LABS: Bacteria Many HPF (Negative); C & S Indicated? No/Sq. Contamination; Casts Negative LPF (Negative); Crystals Negative HPF (Negative); Epithelial Cells Many HPF (Negative); Mucus Negative (Negative); RBC >50 HPF (0-2); WBC >50 HPF (0-5)
[2021-07-22 18:27] LABS: Bilirubin Negative (Negative); Blood Moderate (Negative); Clarity Cloudy (Clear); Glucose Negative (Negative); Ketones 15 mg/dL (Negative); Leukocyte Esterase Small (Negative); Nitrite Negative (Negative); Specific Gravity 1.025 (1.005-1.025); Urobilinogen 0.2 EU/dL (Up TO 0.2); pH 5.5 (5-8)
[2021-07-22 18:28] LABS: Source Nasal/Nares
[2021-07-22 18:44] LABS: Bacteria Many HPF (Negative); C & S Indicated? Yes; Epithelial Cells Negative HPF (Negative); WBC >50 HPF (0-5)
[2021-07-22] MEDS: methylPREDNISolone SUCC 125 MG VIAL 60 MG IVP (19:22)
[2021-07-22] MEDS: cefTRIAXone 2 GM/50 ML BAG IVPB (19:26)
[2021-07-22] MEDS: Lidocaine 1% Multi-Dose 50 ML VIAL (19:27)
[2021-07-22 19:37] LABS: COVID-19 PCR Negative (Negative)
[2021-07-22] MEDS: Normal Saline 500 ML 1000 ML IV (19:43)
[2021-07-22 20:15] LABS: Glucose (CSF) 86 mg/dL (40-70); Total Protein (CSF) 66 mg/dL (15-45)
[2021-07-22 20:18] LABS: INR 1.3 (0.9-1.1); Prothrombin Time 12.9 sec (9.3-11.0)
[2021-07-22 20:27] LABS: Clarity Clear; RBC 3 /mm3 (0-5); Tube # 4; WBC 1 /uL (0-5); Xanthochromia Absent
[2021-07-22 20:42] LABS: Lactate 0.7 mmol/L (0.6-1.4)
[2021-07-22 20:44] LABS: BE (Venous) -1 mmol/L (-2-3); HCO3 (Venous) 23 mmol/L (23-28); O2 Sat (Venous) 98 %; TCO2 (Venous) 21 mmol/L (24-29); pCO2 (Venous) 33 mmHg (41-51); pH (Venous) 7.45 (7.31-7.41); pO2 (Venous) 84 mmHg
[2021-07-22 21:06] LABS: Lymphocytes CSF 0 % (40-80); Monocyte/Macrophage CSF 0 % (15-45); Neutrophils CSF 0 % (0-6)
[2021-07-22] MEDS: Acetaminophen 325 MG TAB PO (21:47)
[2021-07-22] MEDS: Normal Saline Flush 10 ML SYR IVP (21:48)
--- NOTE | 2021-07-22 22:37 | W.PM.HP.N ---
Date of service: 07/22/21 Time of Service: 22:38 Assessment and Plan Assessment and plan (1) Sepsis: Status: Acute Assessment and plan: Due to acute UTI, present on admission. Continue high dose ceftriaxone initiated in the ED, while awaiting blood and urine c&S. Obtain kidney imaging. I do not think the patient can tolerate any more IVF. (2) Acute UTI: Status: Acute Assessment and plan: As above (3) Aortic stenosis: Status: Chronic Assessment and plan: Awaiting TAVR workup. This is contributing to her shortness of breath in addition to fluid overload. Will gently diurese. (4) Elevated troponin: Status: Acute Assessment and plan: Chest pain free. Given clinical picture, this does not represent ACS but rather mild demand ischemia from /fluid overload and sepsis. Additionally, this is a lab value affected by TIFFANIE. Will repeat troponin and place on telemetry, but index of suspicion for ACS is low. (5) Shortness of breath: Status: Acute Assessment and plan: COVID-19 ruled out. Has a h/o COPD, lung ca s/p resection, severe aortic stenosis and is clinically fluid overloaded. D/c IVF and give a dose of IV lasix 20 mg. (6) Giant cell arteritis: Status: Chronic Assessment and plan: Steroid dependent. Possibly contributing to her headache on presentation. Provide stress dose steroids. (7) Acute kidney injury superimposed on chronic kidney disease: Status: Acute Assessment and plan: Hold ARB. Cannot tolerate IVF. Monitor Cr with gentle diuresis. (8) Hypokalemia: Status: Acute Assessment and plan: Replete, recheck in am (9) Lumbar stenosis with neurogenic claudication: Status: Acute Assessment and plan: Ensure no urinary retention/neurogenic bladder. Obtain bladder scans. (10) DVT prophylaxis: Status: Acute Assessment and plan: SC heparin. (11) Discharge planning issues: Status: Acute Assessment and plan: DNR/DNI as verified with the patient. Consult PT. Admit to medsur floor. History of Present Illness Narrative: Ms Joe is an 81 year old female with PMHx of severe aortic stenosis, giant cell arteritis on chronic steroid therapy, COPD, spinal stenosis, who presented to [facility] ED complaining of fever, dysuria, nausea/vomiting, headache and neck discomfort and shortness of breath for three days. She stated that she did have contact with someone that had tested positive about 2 weeks ago. She is fully vaccinated against COVID-19 and tested negative for COVID-19 in our ED. She has not been able to keep her medications, including prednisone, down for a couple of days, and has had poor PO intake. She underwent an LP which was negative for meningitis. Her UA was positive. She was initiated on ceftriaxone with blood and urine cultures pending. She received a dose of 60 mg of solumedrol IV. Hospitalist admission was requested. Review of Systems Narrative: The patient denies saddle anethesia, difficulty with urination/incontinence, constipation or diarrhea. Her back pain is unchanged. Has a chronic cough which is nonproductive. Denies rhinorrhea/sore throat. Denies chest pain. Denies abdominal pain. Endorses sensitivity to light. No visual changes. All systems reviewed & are unremarkable except as noted in HPI and below PFSH Medical History Anxiety (08/30/15) Asthma Cataract (11/19/16) Chronic cough Chronic obstructive lung disease (03/31/07) PFT's showing decreased FEV1 Essential hypertension (10/19/13) Ganglion of tendon sheath 01/11/05 Ganglion cyst of R foot Giant cell arteritis (10/27/15) H/O unilateral nephrectomy left; congenital deformity History of unilateral nephrectomy Hyperlipidemia Impacted cerumen Impacted cerumen Insomnia (10/08/17) Left leg swelling 02/17/15 Mass of right side of neck (02/28/16) 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; 1983 Lobectomy; 03/20 Neg CXR & Barium swallow Primary malignant neoplasm of lung (09/12/83) Right hip pain (09/06/15) Skin lesion of face (08/30/15) 4mm by 2mm left upper lip Vitamin D deficiency (01/19/09) Surgical History Cholecystectomy (~1979) Extraction of cataract 12/05/16-[facility] [place] Lobectomy (~1983) left upper lobectomy; 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 S/P cholecystectomy S/P lobectomy of lung 10/14/83 left upper lobectomy; carcinoid tumor left lung Status post cholecystectomy Status post lobectomy of lung Family History Mother , 56 Melanoma Father , 73 Stroke Sister Essential hypertension Intestines cancer lower intestine Brother Essential hypertension Hyperlipidemia Hypertension Brother Essential hypertension Heart disease BYPASS Hyperlipidemia Maternal Grandfather Stroke Paternal Grandfather Cancer Maternal Grandmother Kidney malignancy Paternal Grandmother Cancer Son Essential hypertension Hyperlipidemia Son No problems noted. Daughter No problems noted. Social History Smoking/Tobacco Use Status: Former Tobacco Use Quit Date: 10/14/83 Tobacco: How many years used: 20 Second Hand Exposure: Yes Smoking risk assessment performed?: Yes Alcohol Intake: current Alcohol Intake frequency: holidays/special occasions only Alcohol type: wine Drug use: Never Substance use type: does not use Caregiver/Support person: No Household members: none Housing: house Do you need help understanding health information?: Never Pets and animals: No Sexually active: No Do you think of yourself as: straight/heterosexual Current gender identity: female What is your relationship status?: How often do you talk on the phone with friends or family?: twice per week How often do you get together with friends or relatives?: once per week How often do you attend hindu or jehovah's witness services?: 4 or more times per year Do you belong to any clubs or organized social groups?: yes Panel score (0-1 are the most socially isolated patients): 3 What type of physical activity do you participate in: none [place]/Alevism: Spiritism Special [place] needs: No Seatbelt use: always 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 Do you feel safe at home: Yes Do you feel safe in your relationship?: Yes Meds Allergies and Home Medications Allergies Allergy/AdvReac Type Severity Reaction Status Date / Time doxazosin Allergy Severe RASH Verified 07/22/21 16:55 nickel Allergy Severe SEVERE RASH Verified 07/22/21 16:55 lisinopril Allergy Intermediate HIVES Verified 07/22/21 16:55 Beta-Blockers AdvReac Intermediate WEAKNESS Verified 07/22/21 16:55 (Beta-Adrenergic Bloc Home Medications Medication Instructions Recorded Confirmed Type calcium carbonate-vitamin D3 2 ea PO DAILY 03/13/13 07/22/21 History [Caltrate 600 + D Tablet] cholecalciferol (vitamin D3) 2,000 unit PO DAILY 03/13/13 07/22/21 History escitalopram oxalate 10 mg tablet 10 mg PO QAM #90 tab-cap 10/06/20 07/22/21 Rx hydrochlorothiazide 25 mg tablet 25 mg PO DAILY #90 tab 10/06/20 07/22/21 Rx triamcinolone acetonide 0.1 % 1 applic TOPICAL BID #80 g 03/21/21 07/22/21 Rx topical cream amlodipine 5 mg tablet 5 mg PO DAILY #90 tab-cap 04/11/21 07/22/21 Rx prednisone 5 mg tablet 5 mg PO DAILY #90 tab 04/11/21 07/22/21 Rx prednisone 1 mg tablet 1 - 3 mg PO DAILY #270 tab 06/07/21 07/22/21 Rx aspirin 81 mg PO HS 07/22/21 07/22/21 History losartan 50 mg PO HS 07/22/21 07/22/21 History metoprolol succinate 25 mg PO HS 07/22/21 07/22/21 History Exam Narrative Exam Narrative: General: Ill-appearing mildly tachypneic elderly female, A&Ox3, laying in bed with eyes closed and a wet towel on her forehead Neurological: A&Ox3, no focal deficits Psychiatric: Appropriate speech pattern/content Skin: Visible skin with several ecchymoses which appear fresh HEENT: Atraumatic, normocephalic, EOMI, MMM, clear oropharynx, no submandibular or cervicaly lymphadenopathy, no goiter or JVD Cardiovascular: RRR, + JUSTIN Lungs: slight rales at B bases Gastrointestinal: soft, nontender, nondistended Genitourinary: deferred Extremities: no edema BLE's, 2+ pedal pulses B Results Imaging Additional studies: CXR 07/22/21: Possible subtle left lung findings. If clinically indicated follow-up CT scan can be performed CT head w/o contrast 07/22/21: No acute intracranial findings on this noninfused CT scan of the brain. Chronic small-vessel white matter ischemic changes. EKG: ST, HR 104, left atrial enlargement, no acute ischemia, nonspeciifc ST-T changes Labs Result diagrams: 07/22/21 16:32 07/22/21 16:32 Labs: Laboratory Results - last 24 hr 07/22/21 07/22/21 07/22/21 15:55 16:32 16:32 WBC RBC Hgb Hct MCV MCH MCHC RDW Plt Count MPV Immature Gran % Neutrophils % Lymphocytes % Monocytes % Eosinophils % Basophils % Nucleated RBC % Absolute Neutrophils Absolute Lymphocytes Absolute Monocytes Absolute Eosinophils Absolute Basophils Xanthochromia PT INR VBG pH VBG pCO2 VBG pO2 VBG HCO3 VBG Total CO2 VBG O2 Saturation VBG Base Excess VBG Lactate 2.5 H* Sodium 135 L Potassium 3.1 L Chloride 97 L Carbon Dioxide 26.2 Anion Gap 11.8 H BUN 30 H Creatinine 1.9 H Estimated GFR/1.73 m2 25.44 Glucose 133 H Calcium 8.8 Total Bilirubin 0.7 AST 27 ALT 26 Alkaline Phosphatase 61 Total Protein 7.7 Albumin 3.4 Urine Color Yellow Urine Clarity Cloudy Urine pH 5.5 Ur Specific [place] >= 1.030 H Urine Protein 100 H Urine Ketones Trace H Urine Blood Moderate H Urine Nitrite Negative Urine Bilirubin Negative Urine Urobilinogen 0.2 Ur Leukocyte Esterase Small H Urine RBC >50 H Urine WBC >50 H Ur Epithelial Cells Many Urine Crystals Negative Urine Bacteria Many Urine Casts Negative Urine Mucus Negative Ur Culture Indicated? No/Sq. Contamination Urine Glucose Negative CSF Tube Number CSF Color CSF Clarity CSF WBC CSF RBC CSF Neutrophils % CSF Lymphocytes % CSF Monos/Macrophage % CSF Other Cells % CSF Diff Comment CSF Glucose CSF Total Protein COVID-19 Source SARS-CoV-2 (PCR) 07/22/21 07/22/21 07/22/21 16:32 17:55 17:55 WBC 12.64 H RBC 3.81 L Hgb 11.8 Hct 35.5 L MCV 93.2 MCH 31.0 MCHC 33.2 RDW 13.3 Plt Count 218 MPV 11.0 Immature Gran % 0.6 Neutrophils % 85.5 Lymphocytes % 4.5 Monocytes % 9.2 Eosinophils % 0.0 Basophils % 0.2 Nucleated RBC % 0 Absolute Neutrophils 10.81 H Absolute Lymphocytes 0.57 L Absolute Monocytes 1.16 H Absolute Eosinophils 0.00 Absolute Basophils 0.03 Xanthochromia PT INR VBG pH VBG pCO2 VBG pO2 VBG HCO3 VBG Total CO2 VBG O2 Saturation VBG Base Excess VBG Lactate Sodium Potassium Chloride Carbon Dioxide Anion Gap BUN Creatinine Estimated GFR/1.73 m2 Glucose Calcium Total Bilirubin AST ALT Alkaline Phosphatase Total Protein Albumin Urine Color Yellow Urine Clarity Cloudy Urine pH 5.5 Ur Specific [place] 1.025 Urine Protein >=300 H Urine Ketones 15 H Urine Blood Moderate H Urine Nitrite Negative Urine Bilirubin Negative Urine Urobilinogen 0.2 Ur Leukocyte Esterase Small H Urine RBC Not Applicable Urine WBC >50 H Ur Epithelial Cells Negative Urine Crystals Not Applicable Urine Bacteria Many Urine Casts Urine Mucus Not Applicable Ur Culture Indicated? Yes Urine Glucose Negative CSF Tube Number CSF Color CSF Clarity CSF WBC CSF RBC CSF Neutrophils % CSF Lymphocytes % CSF Monos/Macrophage % CSF Other Cells % CSF Diff Comment CSF Glucose CSF Total Protein COVID-19 Source Nasal/Nares SARS-CoV-2 (PCR) Negative 07/22/21 07/22/21 07/22/21 19:00 19:00 19:20 WBC RBC Hgb Hct MCV MCH MCHC RDW Plt Count MPV Immature Gran % Neutrophils % Lymphocytes % Monocytes % Eosinophils % Basophils % Nucleated RBC % Absolute Neutrophils Absolute Lymphocytes Absolute Monocytes Absolute Eosinophils Absolute Basophils Xanthochromia Absent PT 12.9 H INR 1.3 H VBG pH VBG pCO2 VBG pO2 VBG HCO3 VBG Total CO2 VBG O2 Saturation VBG Base Excess VBG Lactate Sodium Potassium Chloride Carbon Dioxide Anion Gap BUN Creatinine Estimated GFR/1.73 m2 Glucose Calcium Total Bilirubin AST ALT Alkaline Phosphatase Total Protein Albumin Urine Color Urine Clarity Urine pH Ur Specific [place] Urine Protein Urine Ketones Urine Blood Urine Nitrite Urine Bilirubin Urine Urobilinogen Ur Leukocyte Esterase Urine RBC Urine WBC Ur Epithelial Cells Urine Crystals Urine Bacteria Urine Casts Urine Mucus Ur Culture Indicated? Urine Glucose CSF Tube Number 4 CSF Color Colorless CSF Clarity Clear CSF WBC 1 CSF RBC 3 CSF Neutrophils % 0 CSF Lymphocytes % 0 L CSF Monos/Macrophage % 0 L CSF Other Cells % CSF Diff Comment CSF Glucose 86 H CSF Total Protein 66 H COVID-19 Source SARS-CoV-2 (PCR) 07/22/21 07/22/21 20:35 20:35 WBC RBC Hgb Hct MCV MCH MCHC RDW Plt Count MPV Immature Gran % Neutrophils % Lymphocytes % Monocytes % Eosinophils % Basophils % Nucleated RBC % Absolute Neutrophils Absolute Lymphocytes Absolute Monocytes Absolute Eosinophils Absolute Basophils Xanthochromia PT INR VBG pH 7.45 H VBG pCO2 33 L VBG pO2 84 VBG HCO3 23 VBG Total CO2 21 L VBG O2 Saturation 98 VBG Base Excess -1 VBG Lactate 0.7 Sodium Potassium Chloride Carbon Dioxide Anion Gap BUN Creatinine Estimated GFR/1.73 m2 Glucose Calcium Total Bilirubin AST ALT Alkaline Phosphatase Total Protein Albumin Urine Color Urine Clarity Urine pH Ur Specific [place] Urine Protein Urine Ketones Urine Blood Urine Nitrite Urine Bilirubin Urine Urobilinogen Ur Leukocyte Esterase Urine RBC Urine WBC Ur Epithelial Cells Urine Crystals Urine Bacteria Urine Casts Urine Mucus Ur Culture Indicated? Urine Glucose CSF Tube Number CSF Color CSF Clarity CSF WBC CSF RBC CSF Neutrophils % CSF Lymphocytes % CSF Monos/Macrophage % CSF Other Cells % CSF Diff Comment CSF Glucose CSF Total Protein COVID-19 Source SARS-CoV-2 (PCR) Last Vital Signs Temp 38.4 C H 07/22/21 21:47 Pulse 95 H 07/22/21 21:25 Resp 19 07/22/21 21:25 BP 132/75 07/22/21 21:25 Pulse Ox 95 07/22/21 21:25
[2021-07-22 23:11] LABS: Magnesium 2.1 mg/dL (1.8-2.4)
[2021-07-22 23:29] LABS: NT-proBNP 1578 pg/mL (<300)
[2021-07-22 23:31] LABS: Troponin I 0.08 ng/mL (<0.06)
[2021-07-22] MEDS: Metoprolol CR 25 MG TABCR PO (23:50)
[2021-07-22] MEDS: Potassium Chloride 20 MEQ TABCR 40 MEQ PO (23:50)
[2021-07-23] MEDS: Furosemide 20 MG/2 ML VIAL IVP (00:01)
[2021-07-23] MEDS: Normal Saline Flush 10 ML SYR IVP ×5 (00:02→17:56)
[2021-07-23 00:50] LABS: Troponin I 0.07 ng/mL (<0.06)
[2021-07-23] MEDS: Hydrocortisone SOD SUC. 100 MG VIAL 50 MG IVP ×4 (01:15→21:03)
[2021-07-23 02:49] VITALS: BP 101/65; PULSE 61; RESP 20; TEMP 36.4; O2SAT 96
[2021-07-23] MEDS: Heparin 5,000 UNITS/ML VIAL 5000 UNITS SC ×3 (05:32→21:55)
[2021-07-23 07:00] VITALS: PULSE 94
[2021-07-23 07:12] LABS: Abs Immature Grans 0.11 10^3/uL (0.0-0.06); Absolute Basophil Count 0.02 10^3/uL (0.0-0.2); Absolute Lymphocyte Count 0.28 10^3/uL (1.2-3.4); Absolute Monocyte Count 0.21 10^3/uL (0.1-0.8); Basophils % 0.2; HCT 33.9 % (36.0-46.0); Immature Grans % 1.1; Lymphocytes % 2.9; MCH 30.6 pg (27.0-33.0); MCHC 32.4 % (32.0-36.0); MCV 94.4 fL (80-95); MPV 11.1 fL (8.0-11.0); Monocytes % 2.2; Neutrophils % 93.6; Nucleated RBC 0 %; Platelet Count 212 10^3/uL (130-400); RBC 3.59 10^6/uL (3.93-5.22); RDW 13.5 % (11.7-14.6); RDW-SD 46.8 fL; WBC 9.72 10^3/uL (4.4-10.8)
[2021-07-23 07:36] LABS: Anion Gap 11.1 mmol/L (3-11); BUN 29 mg/dL (7-18); C-Reactive Protein 24.08 mg/dL (0.0-0.3); CO2 25.9 mmol/L (21.0-32.0); CREATININE 1.7 mg/dL (0.55-1.02); Calcium 8.3 mg/dL (8.5-10.1); Chloride 103 mmol/L (98-107); Estimated GFR 28.92 (mL/min/1.73m2); Glucose 171 mg/dL (74-106); Magnesium 2.3 mg/dL (1.8-2.4); Potassium 3.7 mmol/L (3.5-5.1); Sodium 140 mmol/L (136-145)
[2021-07-23 07:38] LABS: Troponin I < 0.05 ng/mL (<0.06)
[2021-07-23 07:57] LABS: Procalcitonin 5.7 ng/mL
[2021-07-23 08:11] VITALS: BP 114/76; PULSE 79; RESP 16; TEMP 36.3; O2SAT 98
[2021-07-23] MEDS: amLODIPine 5 MG TAB PO (08:32)
[2021-07-23] MEDS: Escitalopram 10 MG TAB PO (08:32)
[2021-07-23] MEDS: Pantoprazole 40 MG VIAL IVP (08:33)
--- NOTE | 2021-07-23 11:04 | PDOC.CMIN ---
- If Service Date Differs Date of service: 07/23/21 Time of Service: 11:04 Care Management Initial Assess REASON FOR HOSPITALIZATION:: Sepsis due to UTI, encephalopathy PAST MEDICAL HISTORY/PAST SURGICAL HISTORY:: Anxiety (08/30/15). Asthma. Cataract (11/19/16). Chronic cough. Chronic obstructive lung disease (03/31/07). PFT's showing decreased FEV1. Essential hypertension (10/19/13). Ganglion of tendon sheath. 01/11/05 Ganglion cyst of R foot. Giant cell arteritis (10/27/15). H/O unilateral nephrectomy. left; congenital deformity. History of unilateral nephrectomy. Hyperlipidemia. Impacted cerumen. Impacted cerumen. Insomnia (10/08/17). Left leg swelling. 02/17/15. Mass of right side of neck (02/28/16). Primary malignant neoplasm of lung. 09/12/83 NOAM Tumor; 1983 Lobectomy; 03/20 Neg CXR & Barium swallow. Primary malignant neoplasm of lung (09/12/83). Right hip pain (09/06/15). Skin lesion of face (08/30/15). 4mm by 2mm left upper lip. Vitamin D deficiency (01/19/09). Surgical History . Cholecystectomy (~1979). Extraction of cataract. 12/05/16[facility] [place]. Lobectomy (~1983). left upper lobectomy; carcinoid tumor left lung. Nephrectomy. L NEPHRECTOMY FOR CONGENITAL DEFORMITY. S/P cholecystectomy. S/P lobectomy of lung. 10/14/83 left upper lobectomy; carcinoid tumor left lung. Status post cholecystectomy. Status post lobectomy of lung PREVIOUS FUNCTIONAL STATUS/SOCIAL/FAMILY SUPPORTS:: Debby resides alone in [place], [place]. She reports supportive friends, including Neha who resides locally and Karly in [place]. Debby is independent at baseline in the community. ADVANCE DIRECTIVES:: Colst on file at [facility] agent is Nena Joe. Has patient been provided with info about the portal/API?: Yes Did the patient sign up for the portal?: Yes (Previously) CODE STATUS:: DNR/DNI INSURANCE COVERAGE / FINANCIAL ISSUES:: [place] BS FEP. Medicare CURRENT HOME/COMMUNITY SERVICES/EQUIPMENT:: Side rails, [employer]WW PRIMARY CARE PHYSICIAN:: Zoey Lucas DO, [facility] POTENTIAL DISCHARGE NEEDS:: Review discharge instructions, discuss Ask Me Three. PATIENT/FAMILY EDUCATION NEEDS:: Review discharge instructions, discuss Ask Me Three. ANTICIPATED BARRIERS TO DISCHARGE:: None identified. TRANSPORTATION:: Via private vehicle with a friend. PLAN:: Debby will return home when ready per MD. She will follow up with her PCP and plan of care as prescribed. She will be evaluated by PT to determine functional level for recommended services. Edbby will transport via private vehicle with a friend.
--- NOTE | 2021-07-23 12:05 | PGE_ITS ---
Date of Service Date of service: 07/23/21 Time of Service: 12:05 Assessment and Plan Assessment and plan (1) Sepsis: Status: Acute Assessment and plan: Patient is now hemodynamically stable and being treated with Rocephin 2 g IV daily. 2 out of 2 blood cultures are positive for gram-negative rods. Await speciation and sensitivity. Check formal renal ultrasound in the morning. I did not see any signs of obstructive uropathy and she seems to be voiding freely. Qualifiers: Sepsis type: sepsis due to unspecified organism Sepsis acute organ dysfunction status: with acute organ dysfunction Severe sepsis acute organ dysfunction type: acute renal failure Acute renal failure type: with acute tubular necrosis Severe sepsis shock status: without septic shock Qualified Code(s): A41.9 - Sepsis, unspecified organism; R65.20 - Severe sepsis without septic shock; N17.0 - Acute kidney failure with tubular necrosis (2) Acute UTI: Status: Acute Assessment and plan: As above (3) Aortic stenosis: Status: Chronic Assessment and plan: Awaiting TAVR workup. Patient was intolerant to the fluid resuscitation last night and required diuresis. Now clinically stable. (4) Elevated troponin: Status: Acute Assessment and plan: Transient elevation of troponin now normalized felt to be secondary to demand ischemia. No arrhythmias overnight. Rhythm is sinus rhythm 57-71. We will discontinue her telemetry (5) Shortness of breath: Status: Acute Assessment and plan: COVID-19 ruled out. Has a h/o COPD, lung ca s/p resection, severe aortic stenosis and was clinically fluid overloaded. Status post IV Lasix last night (6) Acute kidney injury superimposed on chronic kidney disease: Status: Acute Assessment and plan: Hold ARB. Cannot tolerate IVF. Monitor Cr with gentle diuresis. Creatinine improved today at 1.7 continue to monitor urine output and daily BMP (7) Giant cell arteritis: Status: Chronic Assessment and plan: Steroid dependent. Possibly contributing to her headache on presentation. Provide stress dose steroids. (8) Hypokalemia: Status: Resolved Assessment and plan: Resolved with replacement (9) DVT prophylaxis: Status: Acute Assessment and plan: SC heparin. (10) Discharge planning issues: Status: Acute Assessment and plan: DNR/DNI as verified with the patient. Consult PT. Admit to [facility] floor. Subjective Subjective Interval history since last seen: Patient is feeling better today. She is not having any dysuria. Patient presented with urosepsis and is growing gram- negative rods in 2 out of 2 blood cultures as well as her urine culture. Lumbar puncture was done last night because a headache and acute mental status change. LP was negative. Patient has a history of solitary kidney. I did a [id number] ultrasound of her abdomen this morning and saw no evidence for hydronephrosis or hydroureter. She is currently on Rocephin 2 g daily and she is currently afebrile with stable vital signs and normal oxygen status. She was resuscitated last night with IV fluids through the emergency department but required a diuretic last night due to volume overload. She has a history of aortic stenosis. Exam Narrative Exam Narrative: Elderly female lying in bed in no acute distress alert and oriented person place time circumstance Lungs are clear to auscultation Heart regular rate and rhythm with a harsh grade 4/6 systolic murmur along the aortic outflow tract along with palpable thrill Abdomen soft and nontender with minimal right flank tenderness. She has normoactive bowel sounds no palpable masses no bruits Extremities without peripheral cyanosis or edema. Neuro exam grossly intact. Objective Last Vital Signs Temp 36.3 C L 07/23/21 08:11 Pulse 79 07/23/21 08:11 Resp 16 07/23/21 08:11 BP 114/76 07/23/21 08:11 Pulse Ox 98 07/23/21 08:11 Laboratory Results - last 24 hr 07/22/21 07/22/21 07/22/21 12:00 15:55 16:32 WBC RBC Hgb Hct MCV MCH MCHC RDW Plt Count MPV Immature Gran % Neutrophils % Lymphocytes % Monocytes % Eosinophils % Basophils % Nucleated RBC % Absolute Neutrophils Absolute Lymphocytes Absolute Monocytes Absolute Eosinophils Absolute Basophils Xanthochromia PT INR VBG pH VBG pCO2 VBG pO2 VBG HCO3 VBG Total CO2 VBG O2 Saturation VBG Base Excess VBG Lactate Sodium 135 L Potassium 3.1 L Chloride 97 L Carbon Dioxide 26.2 Anion Gap 11.8 H BUN 30 H Creatinine 1.9 H Estimated GFR/1.73 m2 25.44 Glucose 133 H Calcium 8.8 Magnesium Total Bilirubin 0.7 AST 27 ALT 26 Alkaline Phosphatase 61 Troponin I Cancelled C-Reactive Protein NT-Pro-B Natriuret Pep Total Protein 7.7 Albumin 3.4 Procalcitonin Urine Color Yellow Urine Clarity Cloudy Urine pH 5.5 Ur Specific [place] >= 1.030 H Urine Protein 100 H Urine Ketones Trace H Urine Blood Moderate H Urine Nitrite Negative Urine Bilirubin Negative Urine Urobilinogen 0.2 Ur Leukocyte Esterase Small H Urine RBC >50 H Urine WBC >50 H Ur Epithelial Cells Many Urine Crystals Negative Urine Bacteria Many Urine Casts Negative Urine Mucus Negative Ur Culture Indicated? No/Sq. Contamination Urine Glucose Negative CSF Tube Number CSF Color CSF Clarity CSF WBC CSF RBC CSF Neutrophils % CSF Lymphocytes % CSF Monos/Macrophage % CSF Other Cells % CSF Diff Comment CSF Glucose CSF Total Protein COVID-19 Source SARS-CoV-2 (PCR) 07/22/21 07/22/21 07/22/21 16:32 16:32 17:55 WBC 12.64 H RBC 3.81 L Hgb 11.8 Hct 35.5 L MCV 93.2 MCH 31.0 MCHC 33.2 RDW 13.3 Plt Count 218 MPV 11.0 Immature Gran % 0.6 Neutrophils % 85.5 Lymphocytes % 4.5 Monocytes % 9.2 Eosinophils % 0.0 Basophils % 0.2 Nucleated RBC % 0 Absolute Neutrophils 10.81 H Absolute Lymphocytes 0.57 L Absolute Monocytes 1.16 H Absolute Eosinophils 0.00 Absolute Basophils 0.03 Xanthochromia PT INR VBG pH VBG pCO2 VBG pO2 VBG HCO3 VBG Total CO2 VBG O2 Saturation VBG Base Excess VBG Lactate 2.5 H* Sodium Potassium Chloride Carbon Dioxide Anion Gap BUN Creatinine Estimated GFR/1.73 m2 Glucose Calcium Magnesium Total Bilirubin AST ALT Alkaline Phosphatase Troponin I C-Reactive Protein NT-Pro-B Natriuret Pep Total Protein Albumin Procalcitonin Urine Color Urine Clarity Urine pH Ur Specific [place] Urine Protein Urine Ketones Urine Blood Urine Nitrite Urine Bilirubin Urine Urobilinogen Ur Leukocyte Esterase Urine RBC Urine WBC Ur Epithelial Cells Urine Crystals Urine Bacteria Urine Casts Urine Mucus Ur Culture Indicated? Urine Glucose CSF Tube Number CSF Color CSF Clarity CSF WBC CSF RBC CSF Neutrophils % CSF Lymphocytes % CSF Monos/Macrophage % CSF Other Cells % CSF Diff Comment CSF Glucose CSF Total Protein COVID-19 Source Nasal/Nares SARS-CoV-2 (PCR) Negative 07/22/21 07/22/21 07/22/21 17:55 19:00 19:00 WBC RBC Hgb Hct MCV MCH MCHC RDW Plt Count MPV Immature Gran % Neutrophils % Lymphocytes % Monocytes % Eosinophils % Basophils % Nucleated RBC % Absolute Neutrophils Absolute Lymphocytes Absolute Monocytes Absolute Eosinophils Absolute Basophils Xanthochromia Absent PT INR VBG pH VBG pCO2 VBG pO2 VBG HCO3 VBG Total CO2 VBG O2 Saturation VBG Base Excess VBG Lactate Sodium Potassium Chloride Carbon Dioxide Anion Gap BUN Creatinine Estimated GFR/1.73 m2 Glucose Calcium Magnesium Total Bilirubin AST ALT Alkaline Phosphatase Troponin I C-Reactive Protein NT-Pro-B Natriuret Pep Total Protein Albumin Procalcitonin Urine Color Yellow Urine Clarity Cloudy Urine pH 5.5 Ur Specific [place] 1.025 Urine Protein >=300 H Urine Ketones 15 H Urine Blood Moderate H Urine Nitrite Negative Urine Bilirubin Negative Urine Urobilinogen 0.2 Ur Leukocyte Esterase Small H Urine RBC Not Applicable Urine WBC >50 H Ur Epithelial Cells Negative Urine Crystals Not Applicable Urine Bacteria Many Urine Casts Urine Mucus Not Applicable Ur Culture Indicated? Yes Urine Glucose Negative CSF Tube Number 4 CSF Color Colorless CSF Clarity Clear CSF WBC 1 CSF RBC 3 CSF Neutrophils % 0 CSF Lymphocytes % 0 L CSF Monos/Macrophage % 0 L CSF Other Cells % CSF Diff Comment CSF Glucose 86 H CSF Total Protein 66 H COVID-19 Source SARS-CoV-2 (PCR) 07/22/21 07/22/21 07/22/21 19:20 20:35 20:35 WBC RBC Hgb Hct MCV MCH MCHC RDW Plt Count MPV Immature Gran % Neutrophils % Lymphocytes % Monocytes % Eosinophils % Basophils % Nucleated RBC % Absolute Neutrophils Absolute Lymphocytes Absolute Monocytes Absolute Eosinophils Absolute Basophils Xanthochromia PT 12.9 H INR 1.3 H VBG pH 7.45 H VBG pCO2 33 L VBG pO2 84 VBG HCO3 23 VBG Total CO2 21 L VBG O2 Saturation 98 VBG Base Excess -1 VBG Lactate 0.7 Sodium Potassium Chloride Carbon Dioxide Anion Gap BUN Creatinine Estimated GFR/1.73 m2 Glucose Calcium Magnesium Total Bilirubin AST ALT Alkaline Phosphatase Troponin I C-Reactive Protein NT-Pro-B Natriuret Pep Total Protein Albumin Procalcitonin Urine Color Urine Clarity Urine pH Ur Specific [place] Urine Protein Urine Ketones Urine Blood Urine Nitrite Urine Bilirubin Urine Urobilinogen Ur Leukocyte Esterase Urine RBC Urine WBC Ur Epithelial Cells Urine Crystals Urine Bacteria Urine Casts Urine Mucus Ur Culture Indicated? Urine Glucose CSF Tube Number CSF Color CSF Clarity CSF WBC CSF RBC CSF Neutrophils % CSF Lymphocytes % CSF Monos/Macrophage % CSF Other Cells % CSF Diff Comment CSF Glucose CSF Total Protein COVID-19 Source SARS-CoV-2 (PCR) 07/22/21 07/23/21 07/23/21 20:35 00:00 01:43 WBC RBC Hgb Hct MCV MCH MCHC RDW Plt Count MPV Immature Gran % Neutrophils % Lymphocytes % Monocytes % Eosinophils % Basophils % Nucleated RBC % Absolute Neutrophils Absolute Lymphocytes Absolute Monocytes Absolute Eosinophils Absolute Basophils Xanthochromia PT INR VBG pH VBG pCO2 VBG pO2 VBG HCO3 VBG Total CO2 VBG O2 Saturation VBG Base Excess VBG Lactate Sodium Potassium Chloride Carbon Dioxide Anion Gap BUN Creatinine Estimated GFR/1.73 m2 Glucose Calcium Magnesium 2.1 Total Bilirubin AST ALT Alkaline Phosphatase Troponin I 0.08 H* 0.07 H C-Reactive Protein NT-Pro-B Natriuret Pep 1578 H Total Protein Albumin Procalcitonin Urine Color Cancelled Urine Clarity Cancelled Urine pH Cancelled Ur Specific [place] Cancelled Urine Protein Cancelled Urine Ketones Cancelled Urine Blood Cancelled Urine Nitrite Cancelled Urine Bilirubin Cancelled Urine Urobilinogen Cancelled Ur Leukocyte Esterase Cancelled Urine RBC Urine WBC Ur Epithelial Cells Urine Crystals Urine Bacteria Urine Casts Urine Mucus Ur Culture Indicated? Urine Glucose Cancelled CSF Tube Number CSF Color CSF Clarity CSF WBC CSF RBC CSF Neutrophils % CSF Lymphocytes % CSF Monos/Macrophage % CSF Other Cells % CSF Diff Comment CSF Glucose CSF Total Protein COVID-19 Source SARS-CoV-2 (PCR) 07/23/21 07/23/21 07/23/21 06:15 06:15 06:15 WBC 9.72 RBC 3.59 L Hgb 11.0 L Hct 33.9 L MCV 94.4 MCH 30.6 MCHC 32.4 RDW 13.5 Plt Count 212 MPV 11.1 H Immature Gran % 1.1 Neutrophils % 93.6 Lymphocytes % 2.9 Monocytes % 2.2 Eosinophils % 0.0 Basophils % 0.2 Nucleated RBC % 0 Absolute Neutrophils 9.10 H Absolute Lymphocytes 0.28 L Absolute Monocytes 0.21 Absolute Eosinophils 0.00 Absolute Basophils 0.02 Xanthochromia PT INR VBG pH VBG pCO2 VBG pO2 VBG HCO3 VBG Total CO2 VBG O2 Saturation VBG Base Excess VBG Lactate Sodium 140 Potassium 3.7 Chloride 103 Carbon Dioxide 25.9 Anion Gap 11.1 H BUN 29 H Creatinine 1.7 H Estimated GFR/1.73 m2 28.92 Glucose 171 H Calcium 8.3 L Magnesium 2.3 Total Bilirubin AST ALT Alkaline Phosphatase Troponin I < 0.05 C-Reactive Protein 24.08 H NT-Pro-B Natriuret Pep Total Protein Albumin Procalcitonin 5.7 Urine Color Urine Clarity Urine pH Ur Specific [place] Urine Protein Urine Ketones Urine Blood Urine Nitrite Urine Bilirubin Urine Urobilinogen Ur Leukocyte Esterase Urine RBC Urine WBC Ur Epithelial Cells Urine Crystals Urine Bacteria Urine Casts Urine Mucus Ur Culture Indicated? Urine Glucose CSF Tube Number CSF Color CSF Clarity CSF WBC CSF RBC CSF Neutrophils % CSF Lymphocytes % CSF Monos/Macrophage % CSF Other Cells % CSF Diff Comment CSF Glucose CSF Total Protein COVID-19 Source SARS-CoV-2 (PCR)
[2021-07-23] MEDS: cefTRIAXone 2 GM/50 ML BAG IVPB (17:57)
[2021-07-23 20:18] VITALS: BP 133/81; PULSE 80; RESP 18; TEMP 36.6; O2SAT 98
[2021-07-23] MEDS: Acetaminophen 325 MG TAB PO (21:03)
[2021-07-23] MEDS: Aspirin E.C. 81 MG TABEC PO (21:54)
[2021-07-23] MEDS: Metoprolol CR 25 MG TABCR PO (21:54)
[2021-07-23] MEDS: Melatonin 3 MG TAB PO (23:01)
[2021-07-23 23:15] VITALS: BP 145/83; PULSE 77; RESP 18; TEMP 36.4; O2SAT 97
[2021-07-24 03:00] VITALS: BP 125/73; PULSE 65; RESP 20; TEMP 36.4; O2SAT 97
[2021-07-24] MEDS: Melatonin 3 MG TAB PO (03:06)
[2021-07-24] MEDS: Heparin 5,000 UNITS/ML VIAL 5000 UNITS SC ×3 (05:43→21:32)
[2021-07-24 06:57] LABS: HCT 31.7 % (36.0-46.0); HGB 10.6 g/dL (11.2-15.7); MCH 30.7 pg (27.0-33.0); MCHC 33.4 % (32.0-36.0); MCV 91.9 fL (80-95); MPV 10.8 fL (8.0-11.0); Platelet Count 242 10^3/uL (130-400); RBC 3.45 10^6/uL (3.93-5.22); RDW 13.5 % (11.7-14.6); RDW-SD 45.7 fL; WBC 15.21 10^3/uL (4.4-10.8)
[2021-07-24 07:10] LABS: Anion Gap 9.8 mmol/L (3-11); BUN 36 mg/dL (7-18); CO2 26.2 mmol/L (21.0-32.0); CREATININE 1.7 mg/dL (0.55-1.02); Calcium 8.1 mg/dL (8.5-10.1); Chloride 102 mmol/L (98-107); Estimated GFR 28.92 (mL/min/1.73m2); Glucose 138 mg/dL (74-106); Potassium 3.6 mmol/L (3.5-5.1); Sodium 138 mmol/L (136-145)
[2021-07-24 07:56] VITALS: BP 127/69; PULSE 72; RESP 16; TEMP 36.5; O2SAT 97
--- NOTE | 2021-07-24 08:00 | DI.US_ITS ---
Exam(s) US RENAL EXAM: US RENAL CLINICAL HISTORY: TIFFANIE on CKD, solitary kidney by history TECHNIQUE: Ultrasound performed using standard protocol. COMPARISON: US US ECHOCARDIOGRAM from 06/27/2021 FINDINGS: Patient reportedly has a history of left nephrectomy. Right kidney measures 12.2 x 6.4 x 6.4 cm. No hydronephrosis, nephrolithiasis, or renal mass on the right. Urinary bladder shows volume of 104 cc. The patient was unable to void at this time. Urinary bladde r appears grossly intact as visualized. IMPRESSION: Negative right renal ultrasound, the patient is status post left nephrectomy. DATA REPOSITORY:
[2021-07-24] MEDS: Hydrocortisone SOD SUC. 100 MG VIAL 50 MG IVP (09:33)
[2021-07-24] MEDS: Normal Saline Flush 10 ML SYR IVP (09:34)
[2021-07-24] MEDS: Escitalopram 10 MG TAB PO (09:34)
[2021-07-24] MEDS: Pantoprazole 40 MG TABCR PO (09:34)
--- NOTE | 2021-07-24 09:37 | PT.INIE ---
Date of service: 07/24/21 Time of Service: 09:37 PT Notes Visit Reasons: Sepsis due to UTI;encephalopathy Physical Therapy Inpatient Initial Evaluation Date: 07/24/2021 Referring Doctor: Zohra Bob MD PT Orders: PT CONSULT: Limited ability Precautions: Fall. Standard. Activity as tolerated. 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 Patient is diagnosed with sepsis, acute urinary tract infection, acute kidney injury, hypokalemia, and elevated troponin. PMHX: Medical History Anxiety (08/30/15) Asthma Cataract (11/19/16) Chronic cough Chronic obstructive lung disease (03/31/07) PFT's showing decreased FEV1 Essential hypertension (10/19/13) Ganglion of tendon sheath 01/11/05 Ganglion cyst of R foot Giant cell arteritis (10/27/15) H/O unilateral nephrectomy left; congenital deformity History of unilateral nephrectomy Hyperlipidemia Impacted cerumen Impacted cerumen Insomnia (10/08/17) Left leg swelling 02/17/15 Mass of right side of neck (02/28/16) 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; 1983 Lobectomy; 03/20 Neg CXR & Barium swallow Primary malignant neoplasm of lung (09/12/83) Right hip pain (09/06/15) Skin lesion of face (08/30/15) 4mm by 2mm left upper lip Vitamin D deficiency (01/19/09) Surgical History Cholecystectomy (~1979) [place] [place] (~[place]) left upper lobectomy; 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 S/P cholecystectomy S/P lobectomy of lung 10/14/83 left upper lobectomy; carcinoid tumor left lung Status post cholecystectomy Status post lobectomy of lung Social History/Home Situation: Lives alone in a private home with 2 steps to enter with rails on both sides. Has a daughter who has been retired from work be with her once she is discharged to home to provide support with whatever she needs. 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 Independent with prior level of function. Equipment Owned/DME: 4WW, SPC Subjective: Agreeable to PT consult. Reports of weakness that states that it strength is a little improved today. Denies headache, dizziness, and chest pain throughout session. Objective: General Observation: Seated on bedside chair. Mental Status: Alert and oriented as to person, place, time, and purpose. Able to pay attention, focus, and respond appropriately. Pain: 1-2/10 in low back ROM: Right Upper Extremity: Shoulder Flexion WFL. Shoulder abduction WFL. Elbow flexion WFL. Wrist flexion WFL. Functional opening and closing of hand WFL. Left Upper Extremity: Shoulder Flexion WFL. Shoulder abduction WFL. Elbow flexion WFL. Wrist flexion WFL. Functional opening and closing of hand WFL. Right Lower Extremity: Hip flexion WFL. Hip abduction WFL. Knee flexion WFL. Ankle dorsiflexion WFL. Ankle plantarflexion WFL. Left Lower Extremity: Hip flexion WFL. Hip abduction WFL. Knee flexion WFL. Ankle dorsiflexion WFL. Ankle plantarflexion WFL. Strength: Right Upper Extremity: Shoulder flexors 4-/5. Shoulder abductors 4-/5. Elbow flexors 4-/5. Elbow extensors 4-/5. [employer] strong. Left Upper Extremity: Shoulder flexors 4-/5. Shoulder abductors 4-/5. Elbow flexors 4-/5. Elbow extensors 4-/5. [employer] strong. Right Lower Extremity: Hip flexors 4-/5. Hip abductors 4-/5. Knee flexors 4-/5. Knee extensors 4-/5. Ankle dorsiflexors 4-/5. Ankle plantarflexors 4-/5. Left Lower Extremity: Hip flexors 4-/5. Hip abductors 4-/5. Knee flexors 4-/5. Knee extensors 4-/5. Ankle dorsiflexors 4-/5. Ankle plantarflexors 4-/5. Bed Mobility/Transfers: Sit to stand standby assist Stand to sit standby assist Bed to reclining chair standby assist Reclining chair to bed standby assist Gait: Instructed patient with level surface ambulation of 250 feet requiring standby assist. Sindi decreased. Step height decreased. Step length increased. Denies headache, chest pain, and dizziness during and after activity. Balance: Static Sitting: Normal Dynamic Sitting: Normal Static Standing: Fair Dynamic Standing: Fair Special Tests: Mobility Limitations Standardized Measure [facility] AM-PAC 6 clicks Basic Mobility Inpatient Short Form: Raw Score: 23 CMS Score: 11% deficit Informed Consent/Education: Patient was instructed in purpose of PT consult and plan of care. Agreeable to proceed with established PT POC to achieve personal goals. Assessment: Debby demonstrates functional mobility decline requiring the use of a front wheel walker for decreased risk for falls while offloading her lumbar spine for pain relief. Patient presents with clinical signs and symptoms consistent with current/admitting diagnoses that have resulted to mobility limitations, gait instability, generalized weakness, and overall ADL decline as demonstrated by the following impairment level findings: 1. Decreased strength to BUE/LE [] major muscle groups 2. Impaired standing balance 3. Impaired activity tolerance Impairments are contributing to the following functional limitations: 1. Difficulty with ambulation without assistive device 2. Increased completion time for mobility ADL performance 3. Increased risk for falls 4. Difficulty with managing steps alone safely Patient is assessed as a 06804 complexity based on the following: History: 81 [id number] with past medical history as indicated above Examination: Demonstrable impairment in strength, balance, and mobility level with underlying impairments and functional limitations as exhibited above as well as deficit score of 11% utilizing the [facility] Mobility Inpatient Short Form Presentation: Evolving Decision Makin moderate complexity Goals: Goals X1 week 1. Supine-Sit independent 2. Sit-Supine independent 3. Sit-Stand independent 4. Stand-Sit independent with FWW 5. Bed-Chair independent with FWW 6. Chair-Bed independent with FWW 7. Independent gait on level surface with use of FWW for at least 200 feet without report of pain nor dyspnea 8. Independent stair negotiation while holding onto B rails for at least 5 steps without report of pain nor dyspnea Plan of Care/Treatment Plan: 1-2x/day, 7 days/week x 1 week. Plan of care has been reviewed with the MANAGER COMPENSATION providing the service under Physical Therapy direction. Initiate Physical Therapy intervention for pain management as needed, strengthening, bed mobility, transfers, gait, stairs, balance training, and use of assistive device. DISCHARGE RECOMMENDATIONS: Patient will benefit from home health PT services in order to progress mobility level using least restrictive assistive ambulatory device, assess home safety, identify additional equipment needs, and establish a functional maintenance program that will increase ability of patient to remain at home. TREATMENT CODE/TIME: 76457 x 25 minutes beginning at 9:37 AM. Thank you for the opportunity to participate in the care of this patient. Sri Cohen PT, DPT, CLT [facility] [place], [place]
[2021-07-24] MEDS: predniSONE 5 MG TAB 2.5 MG PO (10:43)
--- NOTE | 2021-07-24 14:20 | PTTR_ITS ---
Date of service: 07/24/21 Time of Service: 13:54 PT Notes Visit Reasons: Sepsis due to UTI;encephalopathy Inpatient Physical Therapy Treatment Note [facility] Date: 07/24/2021 PRECAUTIONS: Activity as tolerated SUBJECTIVE: Debby is pleasant and agreeable to participating in PT. She states that she is feeling better. She would like to obtain a 4WW for her own use, as the one she has at home is on loan from a friend. OBJECTIVE: PAIN: No c/o pain BED MOBILITY/TRANSFERS Supine-sit: I Sit-stand: I Stand-sit: I GAIT Assistive Device: FWW 4WW Weight bearing: Full Assist: S Distance: 50' with FWW 300' with 4WW Deviation: Min SOB, appropriate use of brakes and locks STAIRS: Up/down 3x4 and 2x6 using B rails and a step-over pattern ind ependently ASSESSMENT: Patient tolerated session well without complaint. She was able to tolerate a progression in gait distance with 4WW support and supervision, although demonstrates minimal CRUMP. She demonstrates independence with transfers and bed mobility at this time. PLAN: Continue with general conditioning and global strengthening for improved activity tolerance. TREATMENT CODE/TIME: 14 minutes; [id number] (13:54)
[2021-07-24 15:38] VITALS: BP 136/81; PULSE 73; RESP 14; TEMP 36.5; O2SAT 97
--- NOTE | 2021-07-24 16:23 | W.PM.PROGNOT ---
Date of Service Date of service: 07/24/21 Time of Service: 16:24 Assessment and Plan Assessment and plan (1) Sepsis: Status: Acute Assessment and plan: E. coli sepsis. Renal US showed no abscess, no obstructive uropathy and no stones. Continue Rocephin 2 gm daily (d#3). Repeat blood cultures today, if no growth then can have PICC line for completion of 10 to 14 day course for bacteremia. Qualifiers: Sepsis type: sepsis due to unspecified organism Sepsis acute organ dysfunction status: with acute organ dysfunction Severe sepsis acute organ dysfunction type: acute renal failure Acute renal failure type: with acute tubular necrosis Severe sepsis shock status: without septic shock Qualified Code(s): A41.9 - Sepsis, unspecified organism; R65.20 - Severe sepsis without septic shock; N17.0 - Acute kidney failure with tubular necrosis (2) Acute UTI: Status: Acute Assessment and plan: As above (3) Acute kidney injury superimposed on chronic kidney disease: Status: Acute Assessment and plan: improving. cont. to hold losartan and HCTZ. monitor daily BMP (4) Giant cell arteritis: Status: Chronic Assessment and plan: dc hydrocortisone. resume her prednisone at the correct dose of 7 mg daily. (5) DVT prophylaxis: Status: Acute Assessment and plan: SC heparin. (6) Discharge planning issues: Status: Acute Assessment and plan: family would like her to have some rehab prior to returning home. I explained that this depends on how she responds to P.T. and whether or not they recommend SNF Subjective Subjective Interval history since last seen: Patient continues to imrprove. She denies any fever or chills or rigors and no nausea or vomiting nor any flank pain nor dysuria. Her blood cultures grew gram negative rods and urine cultures grew E. coli which is sensitive to the Rocephin. She remains on Rocephin 2 gm daily (d#3). I have ordered repeat blood cultures to be done today. If they return negative then she could have a PICC line and complete a 10 to 14 day course of Rocephin. This can be done as outpatient either through the infusion center or through home health. Family (sons) would like her to go for SNF or swing for rehab. They are concerned about her returning home w/ no family in the state to help her. All of her children live out of state. Her WBC went up to 15,000 but this may be the stress corticosteroids, as she has remained afebrile since the evening of 07/22. Patient complains of not sleeping last night despite being given melatonin. I told her that we would give her a trial of amiben CR. She was agreeble to this. She was also concerned about going on high dose corticosteroids as she had been on this in the past for her Giant Cell Arteritis and it took months to taper off this. I told her that she was given stress dose hydrocortisone d/t her being septic but she can go back on her home dose of 7 mg prednisone daily now. She indicated that she only got 2.5 mg today. I reviewed this and apparently her home dose was put incorrectly. Her other concern regards her BP meds. She was concerned that some of her BP meds have not been given. I explained to her that when she presented to the ER she was septic and we had concerns that she may not tolerate her BP meds and that she had acute kidney injury and therefore we held some of her BP meds (i.e. HCTZ and losartan) but that her kidney function is improving and we will resume her meds as clinically feasible. Her creatinine is improved at 1.7 but still not back to her baseline of 1.4. Her amlodipine has been resumed w/ parameters for holding and her metoprolol has not been held. Exam Narrative Exam Narrative: Elderly female alert and oriented, sitting up in her chair visiting w/ her 3 sons Lungs: clear Heart: RRR, harsh systolic murmur over aortic outflow tract Abdomen: soft, nontender, nondistened; no suprapubic tenderness Flank: no tenderness Extremities: no edema Objective Last Vital Signs Temp 36.5 C 07/24/21 15:38 Pulse 73 07/24/21 15:38 Resp 14 07/24/21 15:38 BP 136/81 07/24/21 15:38 Pulse Ox 97 07/24/21 15:38 Laboratory Results - last 24 hr 07/22/21 07/24/21 07/24/21 17:55 06:45 06:45 WBC 15.21 H D RBC 3.45 L Hgb 10.6 L Hct 31.7 L MCV 91.9 MCH 30.7 MCHC 33.4 RDW 13.5 Plt Count 242 MPV 10.8 Sodium 138 Potassium 3.6 Chloride 102 Carbon Dioxide 26.2 Anion Gap 9.8 BUN 36 H Creatinine 1.7 H Estimated GFR/1.73 m2 28.92 Glucose 138 H Calcium 8.1 L Urine Color Yellow Urine Clarity Cloudy Urine pH 5.5 Ur Specific [place] 1.025 Urine Protein >=300 H Urine Ketones 15 H Urine Blood Moderate H Urine Nitrite Negative Urine Bilirubin Negative Urine Urobilinogen 0.2 Ur Leukocyte Esterase Small H Urine WBC >50 H Ur Epithelial Cells Negative Urine Bacteria Many Ur Culture Indicated? Yes Urine Glucose Negative
--- NOTE | 2021-07-24 17:14 | CMPROGNOTE_ITS ---
- If Service Date Differs Date of service: 07/24/21 Time of Service: 17:14 Care Management Progress Note S/O: Debby was sitting up in bed visiting with her friend, Neha, when CM met with her. She reported that she is feeling better today than when she arrived. Per report, awaiting sensitivities to determine antibiotic course. She is currently being treated with Rocephin 2g IV daily. Her son, Shady, visited and requested to speak to CM. Shady expressed his concern regarding his mother being home alone in [place], as it is very isolated, and she did not call for help until she had been feeling bad for several days. CM discussed local resources for support, including HH ([facility]) and [facility], but stated that Debby will need to agree to services. Debby is agreeable to having extra help for a short time. Shady requested an update prior to discharge (cell: [phone] vs email: [email or web address]). CM sent a referral to [facility] for community case management and/or options counseling. CM will send referral to [employer] upon discharge. Debby asked about obtaining a 4WW. CM explained the process for [facility], reporting that [facility] will communicate directly with Debby once she is home, and there is no guarantee of payment by insurance for DME. She stated that she is currently borrowing a 4WW from a friend, and she will likely purchase one independently. CM will continue to follow. A: Debby is an 81 year old female admitted to [facility] on 07/22/21 with sepsis due to UTI; encephalopathy. P: Debby will return home when ready per MD. She will follow up with her PCP and plan of care as prescribed. She will have new HH RN, PT, OT, CARDROOM MANAGER through [facility]. CM sent a referral to [facility] for options counseling. Debby will transport via private vehicle with a friend. CM will continue to follow.
[2021-07-24] MEDS: predniSONE 5 MG TAB PO (18:11)
[2021-07-24] MEDS: cefTRIAXone 2 GM/50 ML BAG IVPB (18:12)
[2021-07-24 19:48] VITALS: BP 138/83; PULSE 80; RESP 18; TEMP 36.5; O2SAT 98
[2021-07-24] MEDS: Zolpidem 6.25 MG TABCR PO (21:32)
[2021-07-24] MEDS: Metoprolol CR 25 MG TABCR PO (21:32)
[2021-07-24] MEDS: Aspirin E.C. 81 MG TABEC PO (21:32)
[2021-07-24 23:34] VITALS: BP 130/81; PULSE 69; RESP 20; TEMP 36.3; O2SAT 97
[2021-07-25] MEDS: Heparin 5,000 UNITS/ML VIAL 5000 UNITS SC ×3 (05:33→21:15)
[2021-07-25 07:38] LABS: Abs Immature Grans 0.11 10^3/uL (0.0-0.06); Absolute Basophil Count 0.01 10^3/uL (0.0-0.2); Absolute Lymphocyte Count 1.12 10^3/uL (1.2-3.4); Absolute Monocyte Count 0.69 10^3/uL (0.1-0.8); Basophils % 0.1; HCT 32.3 % (36.0-46.0); HGB 10.6 g/dL (11.2-15.7); Lymphocytes % 9.7; MCH 30.1 pg (27.0-33.0); MCHC 32.8 % (32.0-36.0); MCV 91.8 fL (80-95); MPV 11.7 fL (8.0-11.0); Neutrophils % 83.2; Nucleated RBC 0 %; Platelet Count 261 10^3/uL (130-400); RBC 3.52 10^6/uL (3.93-5.22); RDW-SD 47.8 fL; WBC 11.53 10^3/uL (4.4-10.8)
[2021-07-25 07:41] LABS: Absolute Neutrophil Count 9.59 10^3/uL (1.2-6.7)
[2021-07-25 07:46] VITALS: BP 158/80; PULSE 72; RESP 18; TEMP 36.6; O2SAT 97
[2021-07-25 07:50] LABS: Anion Gap 9.4 mmol/L (3-11); BUN 36 mg/dL (7-18); C-Reactive Protein 8.22 mg/dL (0.0-0.3); CO2 26.6 mmol/L (21.0-32.0); CREATININE 1.4 mg/dL (0.55-1.02); Calcium 8.5 mg/dL (8.5-10.1); Chloride 104 mmol/L (98-107); Estimated GFR 36.18 (mL/min/1.73m2); Glucose 102 mg/dL (74-106); Potassium 3.6 mmol/L (3.5-5.1); Sodium 140 mmol/L (136-145)
[2021-07-25] MEDS: amLODIPine 5 MG TAB PO (09:24)
[2021-07-25] MEDS: Escitalopram 10 MG TAB PO (09:24)
[2021-07-25] MEDS: Pantoprazole 40 MG TABCR PO (09:24)
--- NOTE | 2021-07-25 09:27 | CMPROGNOTE_ITS ---
- If Service Date Differs Date of service: 07/25/21 Time of Service: 18:37 Care Management Progress Note S/O: Per PT, Debby is doing very well and is up independently in her room, antibiotics switched to oral levofloxacin today, per provider anticipate discharge tomorrow. CM will continue to follow. A: Debby is an 81 year old female admitted to [facility] on 07/22/21 with sepsis due to UTI; encephalopathy. P: Debby will return home when ready per MD. Shady requested an update prior to discharge (cell: [phone] vs email: [email or web address]).She will follow up with her PCP and plan of care as prescribed. She will have new HH RN, PT, OT, STORAGE AND BACKUP ADMINISTRATOR through [facility]. CM sent a referral to [facility] for options counseling. Debby will borrow/attain her own 4WW and will transport via private vehicle with a friend. CM will continue to follow.
--- NOTE | 2021-07-25 12:17 | W.NUTRFU ---
Date of service: 07/25/21 Time of Service: 12:17 Nutritional Follow up NOTE: Weight stable, BMI is 31.4 kg/m2 c/w class 1 obesity. PO intake is good. No nutritional issues noted at this time. Will follow progress. Time Spent in Nutritional Counseling and Treatment: 0
[2021-07-25] MEDS: Acetaminophen 325 MG TAB PO (14:02)
--- NOTE | 2021-07-25 15:04 | CHAPLAIN ---
Debby was resting in bed when I visited. She was pleasant and easily engaged in a conversation. She son from [place] was visiting. Debby said she is from [place]. I explained my role, offered support, and got some coffee for Debby's son.
--- NOTE | 2021-07-25 15:19 | PT.INTREAT ---
Date of service: 07/25/21 Time of Service: 10:45 PT Notes Visit Reasons: Sepsis due to UTI;encephalopathy Inpatient Physical Therapy Treatment Note [facility] Date: 07/25/2021 PRECAUTIONS: Activity as tolerated SUBJECTIVE: Debby is pleasant and agreeable to participating in PT. She states that she is feeling better today. She reports that she has been transferring and ambulating independently within her room utilizing the 4WW. OBJECTIVE: PAIN: No c/o pain BED MOBILITY/TRANSFERS Supine-sit: I with HOB flat Sit-supine: I with HOB flat Sit-stand: I Stand-sit: I Bed-chair: I Chair-bed: I GAIT Assistive Device: 4WW Weight bearing: Full Assist: S Distance: 600' Deviation: Mild SOB THEREX: Patient was instructed in a supine core stabilization program, as per flow sheet. She c/o mild discomfort in R low back with SKTC exercise. TOILETING: Patient toileted independently ASSESSMENT: Patient tolerated session well with mild SOB with gait training. She was able to tolerate a progression in gait distance with 4WW support and supervision. She demonstrates independence with bed mobility, transfers, and short distance ambulation with 4WW, as well as toileting at this time. PLAN: Continue with gait training for improved activity tolerance. TREATMENT CODE/TIME: 28 minutes; [id number] (10:45)
[2021-07-25 15:22] VITALS: BP 142/80; PULSE 64; RESP 18; TEMP 36.8; O2SAT 96
--- NOTE | 2021-07-25 17:28 | W.PM.PROGNOT ---
Date of Service Date of service: 07/25/21 Time of Service: 17:29 Assessment and Plan Assessment and plan (1) Sepsis: Status: Acute Assessment and plan: Due to E. Coli acute UTI with bacteremia, present on admission. Repeat blood cultures are pending. Switch from ceftriaxone to levofloxacin. Plan for discharge home tomorrow. Qualifiers: Sepsis type: sepsis due to unspecified organism Sepsis acute organ dysfunction status: with acute organ dysfunction Severe sepsis acute organ dysfunction type: acute renal failure Acute renal failure type: with acute tubular necrosis Severe sepsis shock status: without septic shock Qualified Code(s): A41.9 - Sepsis, unspecified organism; R65.20 - Severe sepsis without septic shock; N17.0 - Acute kidney failure with tubular necrosis (2) Acute UTI: Status: Acute Assessment and plan: As above (3) Aortic stenosis: Status: Chronic Assessment and plan: Awaiting TAVR workup. Appears euvolemic at this time. F/u with [facility] as outaptient. (4) Elevated troponin: Status: Acute Assessment and plan: No ACS on this admission. Likely T2 NSTEMI in setting of sepsis and fluid overload. No further workup on this admission. Off tele. (5) Shortness of breath: Status: Resolved Assessment and plan: COVID-19 ruled out. Has a h/o COPD, lung ca s/p resection, severe aortic stenosis. SOB resolved with diuresis. (6) Giant cell arteritis: Status: Chronic Assessment and plan: Steroid dependent. Now back to baseline dose of prednisone. F/u as outpatient. (7) Acute kidney injury superimposed on chronic kidney disease: Status: Resolved Assessment and plan: Cr at baseline. Resume ARB on d/c. (8) Hypokalemia: Status: Resolved Assessment and plan: Recheck in am (9) Lumbar stenosis with neurogenic claudication: Status: Chronic Assessment and plan: F/u as outaptient. Bladder scans ok. (10) DVT prophylaxis: Status: Acute Assessment and plan: SC heparin. (11) Discharge planning issues: Status: Acute Assessment and plan: DNR/DNI as verified with the patient. Anticipate discharge home tomorrow. Subjective Subjective Interval history since last seen: Feels a lot better. Denies dizziness, chest pain, shortness of breath, nausea. Exam Narrative Exam Narrative: General: Very pleasant elderly female, A&Ox3, NAD HEENT: EOMI, MMM Cardiovascular: RRR, + JUSTIN Lungs: CTAB Gastrointestinal: soft, nontender, nondistended Extremities: no edema BLE's, 2+ pedal pulses B Objective Last Vital Signs Temp 36.8 C 07/25/21 15:22 Pulse 64 07/25/21 15:22 Resp 18 07/25/21 15:22 BP 142/80 H 07/25/21 15:22 Pulse Ox 96 07/25/21 15:22 Laboratory Results - last 24 hr 07/25/21 07/25/21 06:44 06:44 WBC 11.53 H RBC 3.52 L Hgb 10.6 L Hct 32.3 L MCV 91.8 MCH 30.1 MCHC 32.8 RDW 14.0 Plt Count 261 MPV 11.7 H Immature Gran % 1.0 Neutrophils % 83.2 Lymphocytes % 9.7 Monocytes % 6.0 Eosinophils % 0.0 Basophils % 0.1 Nucleated RBC % 0 Absolute Neutrophils 9.59 H Absolute Lymphocytes 1.12 L Absolute Monocytes 0.69 Absolute Eosinophils 0.00 Absolute Basophils 0.01 Sodium 140 Potassium 3.6 Chloride 104 Carbon Dioxide 26.6 Anion Gap 9.4 BUN 36 H Creatinine 1.4 H Estimated GFR/1.73 m2 36.18 Glucose 102 Calcium 8.5 C-Reactive Protein 8.22 H
[2021-07-25] MEDS: levoFLOXacin 500 MG, levoFLOXacin 250 MG 750 MG PO (17:55)
[2021-07-25 20:00] VITALS: BP 134/75; PULSE 70; RESP 18; TEMP 36.1; O2SAT 97
[2021-07-25] MEDS: Metoprolol CR 25 MG TABCR PO (21:15)
[2021-07-25] MEDS: Zolpidem 6.25 MG TABCR PO (21:15)
[2021-07-25] MEDS: Aspirin E.C. 81 MG TABEC PO (21:15)
[2021-07-25 23:27] VITALS: BP 133/77; PULSE 62; RESP 19; TEMP 36.7; O2SAT 97
[2021-07-26] MEDS: Heparin 5,000 UNITS/ML VIAL 5000 UNITS SC (05:14)
[2021-07-26 07:09] LABS: HCT 31.5 % (36.0-46.0); HGB 10.3 g/dL (11.2-15.7); MCH 30.4 pg (27.0-33.0); MCHC 32.7 % (32.0-36.0); MCV 92.9 fL (80-95); MPV 10.8 fL (8.0-11.0); Nucleated RBC 0 %; Platelet Count 292 10^3/uL (130-400); RBC 3.39 10^6/uL (3.93-5.22); RDW-SD 48.2 fL; WBC 10.78 10^3/uL (4.4-10.8)
[2021-07-26 07:35] LABS: Anion Gap 7.5 mmol/L (3-11); BUN 33 mg/dL (7-18); CO2 29.5 mmol/L (21.0-32.0); CREATININE 1.4 mg/dL (0.55-1.02); Calcium 8.5 mg/dL (8.5-10.1); Chloride 104 mmol/L (98-107); Estimated GFR 36.18 (mL/min/1.73m2); Glucose 87 mg/dL (74-106); Magnesium 2.1 mg/dL (1.8-2.4); Potassium 3.6 mmol/L (3.5-5.1); Sodium 141 mmol/L (136-145)
[2021-07-26 07:47] LABS: Absolute Lymphocyte Count 2.16 10^3/uL (1.2-3.4); Absolute Monocyte Count 0.11 10^3/uL (0.1-0.8); Bands % 3; Diff Comment Manual Differential; Myelocytes % 2; RBC Morphology Normal
[2021-07-26 08:13] VITALS: BP 149/78; PULSE 69; RESP 12; TEMP 36.2; O2SAT 97
[2021-07-26] MEDS: Pantoprazole 40 MG TABCR PO (09:06)
[2021-07-26] MEDS: amLODIPine 5 MG TAB PO (09:07)
[2021-07-26] MEDS: Escitalopram 10 MG TAB PO (09:07)
--- NOTE | 2021-07-26 11:53 | W.PM.DS.N ---
Date of service: 07/26/21 Time of Service: 11:53 DS: Diagnosis Discharge Diagnosis (1) Sepsis due to Escherichia coli: Status: Acute Asessment and Plan: with bacteremia (2) E. coli UTI: Status: Acute (3) Aortic stenosis: Status: Chronic (4) Elevated troponin: Status: Acute (5) Shortness of breath: Status: Resolved (6) Giant cell arteritis: Status: Chronic (7) Acute kidney injury superimposed on chronic kidney disease: Status: Resolved (8) Hypokalemia: Status: Resolved (9) Lumbar stenosis with neurogenic claudication: Status: Chronic (10) COVID-19 ruled out by laboratory testing: Status: Ruled-out Discharge Plan Disposition Patient Disposition: HOME W/HOME HEALTH SERVICE Condition: Stable Discharge Details Reason For Visit: Sepsis due to UTI;encephalopathy Admit Date/Time: 07/22/21 20:06 Admit Provider: Zohra Bob Attending Provider: Zohra Bob Primary Care Provider: Zoey Lucas [facility] Course Hospital Course: Ms Joe is an 81 year old female with PMHx of severe aortic stenosis, awaiting workup for TAVR, as well as h/o hypertension, CKD III, PMR and 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 As she had reported headache, neck pain, nausea, and confusion, an LP was done to rule out meningitis in the ED (and was negative). Her blood and urine C&S grew E. Coli. She was treated empirically with high dose ceftriaxone. Her renal US was negative. When her blood cultures cleared, she was switched to PO levofloxacin. She will complete 10 days of levofloxacin 750 mg PO Q48 hrs (last dose of antibiotics should be 08/02/21). She received stress dose steroids on this admission and was weaned down to her home dose by the time of discharge. As far as her aortic stenosis, the patient did get IVF on presentation to the ED which appear to have resulted in acute pulmonary edema. This resolved with one dose of lasix. On discharge, the patient is being switched from her home HCTZ to furosemide to have greater ability to titrate it to patient's symptoms. She is encouraged to follow up with [facility] cardiology for further workup for her TAVR. The patient is being discharged home today with referrals for new home health nursing, PT, OT, and METAL SPRAYING MACHINE OPERATOR. Care for patient as well as completion of her discharge summary took 45 minutes on the day of discharge. Home Meds and New Rx's Prescriptions: New furosemide 20 mg Tablet 20 mg PO DAILY Qty: 10 RF: 0 levofloxacin 750 mg Tablet 750 mg PO Q48H Qty: 4 RF: 0 Continued cholecalciferol (vitamin D3) 1,000 UNIT capsule 2,000 unit PO DAILY RF: 0 calcium carbonate-vitamin D3 [Caltrate with Vitamin D3] 1 EACH tablet 2 ea PO DAILY RF: 0 escitalopram oxalate [Lexapro] 10 mg tablet 10 mg PO QAM Qty: 90 RF: 4 triamcinolone acetonide 0.1 % cream 1 applic topical BID Qty: 80 RF: 0 amlodipine 5 mg tablet 5 mg PO DAILY Qty: 90 RF: 12 losartan 25 mg tablet 50 mg PO HS RF: 0 metoprolol succinate 25 mg tablet extended release 24 hr 25 mg PO HS RF: 0 aspirin 81 mg tablet,delayed release (DR/EC) 81 mg PO HS RF: 0 prednisone 5 mg tablet 5 mg PO DAILY RF: 0 prednisone 1 mg tablet 2 mg PO DAILY RF: 0 Discontinued hydrochlorothiazide 25 mg tablet 25 mg PO DAILY Qty: 90 RF: 12 Discharge Instructions Instructions: Furosemide (By mouth), Levofloxacin (By mouth), Sepsis (DC), Bacteremia (DC), Urinary Tract Infection in Older Adults (DC) Additional Instructions: Finish your antibiotics as prescribed. Your last dose of levofloxacin should be on 08/02/21. Return to the hospital with any fever, bleeding, chest pain, or shortness of breath. Follow up with your PCP within 1 week. You can take an extra dose of lasix 20 mg 6 hours after the first dose if you notice that you have residual swelling in the legs tomorrow. Elevate your legs when seated. Follow up with [facility] cardiology for your further workup for TAVR. Care Plan Goals: Home with new Home health nursing, PT, OT, METAL SPRAYING MACHINE OPERATOR. Referrals: Zoey Lucas MD, [place] [Primary Care Provider] - Activity:: Activity as Tolerated Equipment/Supplies:: No Equipment Needed Diet:: Low Sodium Discharge Orders Discharge Orders: Discharge Order (Routine); Ordered 07/26/21 Ordered By: Zohra Bob DS: Summary Time Spent with Patient providing and/or coordinating discharge services: Greater than 30 minutes Status at Discharge Functional status at discharge: independent ambulation Overall status at discharge: patient is back to baseline Mental Status: mental status grossly normal Speech and Movement: speech and movement normal Mood: congruent mood Affect: normal affect Exam Narrative Exam Narrative: General: Very pleasant elderly female, A&Ox3, NAD, seated in a chair, no dyspnea/tachypnea/cyanosis HEENT: EOMI, MMM Cardiovascular: RRR, + JUSTIN Lungs: faint crackles at B bases Gastrointestinal: soft, nontender, nondistended Extremities: +1 edema BLE's, 2+ pedal pulses B Psych Mental Status: mental status grossly normal Speech and Movement: speech and movement normal Mood: congruent mood Affect: normal affect DS: Data Vitals/I&O Vitals and I&O: Vital Signs Temperature 36.2 C L 07/26/21 08:13 Temperature Source Temporal Artery Scan 07/26/21 08:13 Pulse 69 07/26/21 08:13 Pulse Rhythm Regular 07/25/21 20:00 Pulse 100 H 07/22/21 19:20 Respiratory Rate 12 07/26/21 08:13 Respiratory Effort Non-Labored 07/25/21 20:00 Respiratory Depth Normal 07/25/21 20:00 Respiratory Pattern Normal 07/25/21 20:00 Blood Pressure 149/78 H 07/26/21 08:13 Blood Pressure Mean 90 07/22/21 19:16 Blood Pressure Position Sitting 07/22/21 16:42 Pulse Oximetry 97 07/26/21 08:13 Oxygen Delivery Method Room Air 07/26/21 08:13 Oxygen Flow Rate 0 07/26/21 08:13 Pain Level 0 07/26/21 08:13 Comment 07/25/21 15:25 Intake & Output 07/25/21 07/25/21 07/26/21 11:59 23:59 11:59 Intake Total 620 / 860 240 / 860 50 / 50 Output Total 400 / 900 500 / 900 300 / 300 Balance 220 / -40 -260 / -40 -250 / -250 Weight 80.5 kg 80.2 kg Intake: IV 50 / 50 Oral 620 / 860 240 / 860 Output: Urine 400 / 900 500 / 900 300 / 300 Other: Urine Color Pale Yellow Yellow Urine Appearance Clear Clear Clear Urine Odor Normal Normal Comment Void x1 in the toilet. Pt. missed the hat; RN unable to determine urine amount. Void x1 in the toilet. Stool Size Small Small Stool Characteristics Soft Soft Formed Formed Mucoid Mucoid Brown Brown Voiding Methods Toilet Toilet Toilet Data Completed and Pending Completed studies during hospitalization [Text1]: CXR: Possible subtle left lung findings. If clinically indicated follow-up CT scan can be performed. CT head w/o contrast: No acute intracranial findings on this noninfused CT scan of the brain. Chronic small-vessel white matter ischemic changes. US renal: Negative right renal ultrasound, the patient is status post left nephrectomy. Labs on day of discharge: Labs from last 24 hours 07/26/21 07/26/21 06:34 06:34 WBC 10.78 RBC 3.39 L Hgb 10.3 L Hct 31.5 L MCV 92.9 MCH 30.4 MCHC 32.7 RDW 14.0 Plt Count 292 MPV 10.8 Immature Gran % See Differential Neutrophils % 74.0 Band Neutrophils % 3 Lymphocytes % 20.0 Monocytes % 1.0 Eosinophils % 0.0 Basophils % 0.0 Myelocytes % 2 Nucleated RBC % 0 Absolute Neutrophils 8.30 H Absolute Lymphocytes 2.16 Absolute Monocytes 0.11 Absolute Eosinophils 0.00 Absolute Basophils 0.00 RBC Morphology Normal Sodium 141 Potassium 3.6 Chloride 104 Carbon Dioxide 29.5 Anion Gap 7.5 BUN 33 H Creatinine 1.4 H Estimated GFR/1.73 m2 36.18 Glucose 87 Calcium 8.5 Magnesium 2.1 Preliminary micro results at discharge 07/22/21 19:00 Body Fluid Culture - Preliminary Cerebrospinal Fluid 07/24/21 17:09 Blood Culture - Preliminary Blood NO GROWTH 24 HOURS 07/24/21 17:00 Blood Culture - Preliminary Blood NO GROWTH 24 HOURS 07/22/21 18:10 Blood Culture - Preliminary Blood Escherichia coli [facility] Medical History Anxiety (08/30/15) Asthma Cataract (11/19/16) Chronic cough Chronic obstructive lung disease (03/31/07) PFT's showing decreased FEV1 Essential hypertension (10/19/13) Ganglion of tendon sheath 01/11/05 Ganglion cyst of R foot Giant cell arteritis (10/27/15) H/O unilateral nephrectomy left; congenital deformity History of unilateral nephrectomy Hyperlipidemia Impacted cerumen Impacted cerumen Insomnia (10/08/17) Left leg swelling 02/17/15 Mass of right side of neck (02/28/16) 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; 1983 Lobectomy; 03/20 Neg CXR & Barium swallow Primary malignant neoplasm of lung (09/12/83) Right hip pain (09/06/15) Skin lesion of face (08/30/15) 4mm by 2mm left upper lip Vitamin D deficiency (01/19/09) Surgical History Cholecystectomy (~1979) Extraction of cataract 12/05/16[facility] Lobectomy (~1983) left upper lobectomy; 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 S/P cholecystectomy S/P lobectomy of lung 10/14/83 left upper lobectomy; carcinoid tumor left lung Status post cholecystectomy Status post lobectomy of lung Family History Mother , 56 Melanoma Father , 73 Stroke Sister Essential hypertension Intestines cancer lower intestine Brother Essential hypertension Hyperlipidemia Hypertension Brother Essential hypertension Heart disease BYPASS Hyperlipidemia Maternal Grandfather Stroke Paternal Grandfather Cancer Maternal Grandmother Kidney malignancy Paternal Grandmother Cancer Son Essential hypertension Hyperlipidemia Son No problems noted. Daughter No problems noted. Social History Smoking/Tobacco Use Status: Former Tobacco Use Quit Date: 10/14/83 Tobacco: How many years used: 20 Second Hand Exposure: Yes Smoking risk assessment performed?: Yes Alcohol Intake: current Alcohol Intake frequency: holidays/special occasions only Alcohol type: wine Drug use: Never Substance use type: does not use Caregiver/Support person: No Household members: none Housing: house Do you need help understanding health information?: Never Pets and animals: No Sexually active: No Do you think of yourself as: straight/heterosexual Current gender identity: female What is your relationship status?: How often do you talk on the phone with friends or family?: twice per week How often do you get together with friends or relatives?: once per week How often do you attend synagogue or islam services?: 4 or more times per year Do you belong to any clubs or organized social groups?: yes Panel score (0-1 are the most socially isolated patients): 3 What type of physical activity do you participate in: none [place]/Amish: Zoroastrianism Special [place] needs: No Seatbelt use: always Drive intox or ride w/intox nascar driver: No Do you feel safe at home: Yes Do you feel safe in your relationship?: Yes
--- NOTE | 2021-07-26 12:13 | PDOC.HHF2F ---
Home Health Certification Home Health Certification: 1. Encounter Date and Reason I certify that Debby Joe was seen by Zohra Bob on 07/26/21 and that I had a xrxe-ud-[id number] encounter with this patient that meets the physician face to face encounter requirements. 2. Clinical Findings Supporting Skilled Need and Homebound Status I certify that home health services are medically necessary, include either intermittent penitentiary and/or physical/speech therapy, and that this patient is homebound in that absences from the home require considerable and taxing effort and are infrequent or of short duration, or are attributable to the need to receive medical care. [X] (a) Attached documentation from encounter provides clinical findings supporting skilled need and homebound status (including what assistance patient requires to leave the home). The encounter with the patient was in whole, or in part, for the following medical condition, which is the primary reason for home health care: Sepsis due to UTI;encephalopathy Detention: severe aortic stenosis, fluid overload Physical Therapy: eval and treat Occupational Therapy: eval and treat ATMOSPHERIC DRIER TENDER: evaluate need for resources in the community Homebound: unable to leave home without assistance 3. Certification and Authentication I certify that I composed the above information based on my clinical judgement relating to this patient's medical condition and, if applicable, clinical findings communicated to me by the NPP or inpatient physician who performed the Home Health Referral. All further orders will be obtained through __Dr Lucas (Community Based Physician - PCP)
[2021-07-26] MEDS: Furosemide 20 MG TAB PO (13:18)
--- NOTE | 2021-07-26 18:29 | PDOC.CMDIS ---
- If Service Date Differs Date of service: 07/26/21 Time of Service: 18:29 LACE Index Scoring Tool - Questions: Length of Stay (in days): 4 - 6 Acuity (Admit via E.D.?): Yes Comorbidities: Mild Liver/Renal Disease E.D. Visits: 1 - Answers: Total Score: 10 Risk of Readmission: High Risk Care Management Discharge Reason for Hospitalization: Sepsis due to UTI, encephalopathy Discharge Plan: Debby will return home today with new orders for RN, PT, OT, CT SCAN TECHNOLOGIST. LAUREN sent a referral to [facility] for community case management. She was transported via private vehicle by family. She will follow up with her PCP and discharge plan of care. LAUREN reached out to her son, Shady, via email to provide an update. She is happy to be returning home. Patient/Family Education Needs: Review discharge instructions regarding activity levels and medications, discussion of self care needs including ask me three and goals of care. Services Needed at Discharge: Home Health Care Services (O/E VNA RN, PT, OT, CT SCAN TECHNOLOGIST)
--- NOTE | 2021-07-27 18:30 | PT.INDS ---
Date of service: 07/27/21 PT Notes Visit Reasons: Sepsis due to UTI;encephalopathy Physical Therapy Inpatient Discharge Summary Date: 07/27/2021 Date of service: 07/24/2021 through 07/25/2021 This is a clinical summary of care provided for the duration of dates listed above. No charge was made in the completion of this documentation. Referring Doctor: Zohra Bob MD PT Orders: PT CONSULT: Limited ability Precautions: Fall. Standard. Activity as tolerated. 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 Patient is diagnosed with sepsis, acute urinary tract infection, acute kidney injury, hypokalemia, and elevated troponin. PMHX: Medical History Anxiety (08/30/15) Asthma Cataract (11/19/16) Chronic cough Chronic obstructive lung disease (03/31/07) PFT's showing decreased FEV1 Essential hypertension (10/19/13) Ganglion of tendon sheath 01/11/05 Ganglion cyst of R foot Giant cell arteritis (10/27/15) H/O unilateral nephrectomy left; congenital deformity History of unilateral nephrectomy Hyperlipidemia Impacted cerumen Impacted cerumen Insomnia (10/08/17) Left leg swelling 02/17/15 Mass of right side of neck (02/28/16) 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; 1983 Lobectomy; 03/20 Neg CXR & Barium swallow Primary malignant neoplasm of lung (09/12/83) Right hip pain (09/06/15) Skin lesion of face (08/30/15) 4mm by 2mm left upper lip Vitamin D deficiency (01/19/09) Surgical History Cholecystectomy (~1979) Extraction of cataract 12/05/16[facility] [place] Lobectomy (~1983) left upper lobectomy; 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 S/P cholecystectomy S/P lobectomy of lung 01/01/84 left upper lobectomy; carcinoid tumor left lung Status post cholecystectomy Status post lobectomy of lung Social History/Home Situation: Lives alone in a private home with 2 steps to enter with rails on both sides. Has a daughter who has been retired from work be with her once she is discharged to home to provide support with whatever she needs. 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 Independent with prior level of function. Equipment Owned/DME: 4WW, SPC Subjective: NT. See most recent DIAMOND SAWER notes. Objective: General Observation: NT. See most recent DIAMOND SAWER notes. Mental Status: NT. See most recent DIAMOND SAWER notes. Pain: NT. See most recent DIAMOND SAWER notes. ROM: Right Upper Extremity: Shoulder Flexion WFL. Shoulder abduction WFL. Elbow flexion WFL. Wrist flexion WFL. Functional opening and closing of hand WFL. Left Upper Extremity: Shoulder Flexion WFL. Shoulder abduction WFL. Elbow flexion WFL. Wrist flexion WFL. Functional opening and closing of hand WFL. Right Lower Extremity: Hip flexion WFL. Hip abduction WFL. Knee flexion WFL. Ankle dorsiflexion WFL. Ankle plantarflexion WFL. Left Lower Extremity: Hip flexion WFL. Hip abduction WFL. Knee flexion WFL. Ankle dorsiflexion WFL. Ankle plantarflexion WFL. Strength: Right Upper Extremity: Shoulder flexors 4-/5. Shoulder abductors 4-/5. Elbow flexors 4-/5. Elbow extensors 4-/5. Drum Sealer strong. Left Upper Extremity: Shoulder flexors 4-/5. Shoulder abductors 4-/5. Elbow flexors 4-/5. Elbow extensors 4-/5. Drum Sealer strong. Right Lower Extremity: Hip flexors 4-/5. Hip abductors 4-/5. Knee flexors 4-/5. Knee extensors 4-/5. Ankle dorsiflexors 4-/5. Ankle plantarflexors 4-/5. Left Lower Extremity: Hip flexors 4-/5. Hip abductors 4-/5. Knee flexors 4-/5. Knee extensors 4-/5. Ankle dorsiflexors 4-/5. Ankle plantarflexors 4-/5. Bed Mobility/Transfers: Sit to stand independent Stand to sit independent Bed to reclining chair independent Reclining chair to bed independent Gait: Instructed patient with level surface ambulation of 600 feet requiring supervision. Sindi improved. Step height increased. Step length increased. Denies headache, chest pain, and dizziness during and after activity. Balance: Static Sitting: Normal Dynamic Sitting: Normal Static Standing: Fair Dynamic Standing: Fair Assessment: Debby demonstrates functional mobility improvement during this episode of care as can be seen by goal status below and mobility level above Goals: Goals X1 week 1. Supine-Sit independent MET 2. Sit-Supine independent MET 3. Sit-Stand independent MET 4. Stand-Sit independent with FWW MET 5. Bed-Chair independent with FWW MET 6. Chair-Bed independent with FWW MET 7. Independent gait on level surface with use of FWW for at least 200 feet without report of pain nor dyspnea NOT MET 8. Independent stair negotiation while holding onto B rails for at least 5 steps without report of pain nor dyspnea NOT MET DISCHARGE RECOMMENDATIONS: Patient will benefit from home health PT services in order to progress mobility level using least restrictive assistive ambulatory device, assess home safety, identify additional equipment needs, and establish a functional maintenance program that will increase ability of patient to remain at home. TREATMENT CODE/TIME: [place] Thank you for the opportunity to participate in the care of this patient. Sri Cohen PT, DPT, CLT [facility] [place], [place]
== END 2021-07-26 14:23 | disposition home health service (06) | DRG 871 ==
LOC: ER 21:07 → MS 21:14
PROVIDERS: Internal Medicine; Physician Assistant; Student in an Organized Health Care Education/Training Program; Admitting Provider Internal Medicine; Emergency Provider Student in an Organized Health Care Education/Training Program; PCP Family Medicine; Visit Provider Internal Medicine
DX: N17.0 Acute kidney failure with tubular necrosis; N39.0 Urinary tract infection, site not specified; A41.51 Sepsis due to Escherichia coli [E. coli]; I24.8 Other forms of acute ischemic heart disease; R65.20 Severe sepsis without septic shock; I35.0 Nonrheumatic aortic (valve) stenosis; B96.20 Unspecified Escherichia coli [E. coli] as the cause of diseases classified elsewhere; E87.79 Other fluid overload; N18.30 Chronic kidney disease, stage 3 unspecified; Z20.822 Contact with and (suspected) exposure to COVID-19; J44.9 Chronic obstructive pulmonary disease, unspecified; Z85.118 Personal history of other malignant neoplasm of bronchus and lung; M31.6 Other giant cell arteritis; Z79.52 Long term (current) use of systemic steroids; E87.6 Hypokalemia; M48.062 Spinal stenosis, lumbar region with neurogenic claudication; F41.9 Anxiety disorder, unspecified; R05.3 Chronic cough; E55.9 Vitamin D deficiency, unspecified; G47.00 Insomnia, unspecified; E78.5 Hyperlipidemia, unspecified; Z90.5 Acquired absence of kidney; Z90.2 Acquired absence of lung [part of]; Z87.891 Personal history of nicotine dependence
CPT/HCPCS: 36415; 76770; 80048; 80053; 82805; 82945; 84145; 85027; 87040; 87077; 87635; 89050; 89051; 90662; 93005; 96361; 96365; 96375; 97110; 97162; 97530; 99285; 70450; 71046; 81003; 81015; 83605; 83735; 83880; 84157; 84484; 85025; 85610; 86140; 87070; 87086; 87186; 87205; 93010; 99223; 99232; 99239; J1644; J1720; J1941; J2930; J7512

== ENCOUNTER 2021-08-14 15:53 | Outpatient (REF) | payer MEDICARE, BC, SELFPAY ==
[2021-08-14 19:20] LABS: Abs Immature Grans 0.08 10^3/uL (0.0-0.06); Absolute Basophil Count 0.06 10^3/uL (0.0-0.2); Absolute Lymphocyte Count 1.21 10^3/uL (1.2-3.4); Absolute Monocyte Count 0.45 10^3/uL (0.1-0.8); Absolute Neutrophil Count 6.89 10^3/uL (1.2-6.7); Basophils % 0.7; Eosinophils % 1.1; HCT 35.6 % (36.0-46.0); HGB 11.3 g/dL (11.2-15.7); Immature Grans % 0.9; Lymphocytes % 13.8; MCH 30.5 pg (27.0-33.0); MCHC 31.7 % (32.0-36.0); MCV 96.2 fL (80-95); MPV 11.6 fL (8.0-11.0); Monocytes % 5.1; Neutrophils % 78.4; Nucleated RBC 0 %; Platelet Count 287 10^3/uL (130-400); RDW 13.8 % (11.7-14.6); WBC 8.79 10^3/uL (4.4-10.8)
[2021-08-14 19:30] LABS: INR 1.3 (0.9-1.1); Prothrombin Time 12.7 sec (9.3-11.0)
[2021-08-14 19:41] LABS: Anion Gap 9.3 mmol/L (3-11); BUN 33 mg/dL (7-18); CO2 29.7 mmol/L (21.0-32.0); CREATININE 1.5 mg/dL (0.55-1.02); Calcium 9.8 mg/dL (8.5-10.1); Chloride 102 mmol/L (98-107); Estimated GFR 33.41 (mL/min/1.73m2); Glucose 184 mg/dL (74-106); Sodium 141 mmol/L (136-145)
== END 2021-08-14 15:54 | disposition home or self-care (01) ==
LOC: LBN 15:53
PROVIDERS: PCP Family Medicine; Visit Provider Family Medicine
DX: R06.02 Shortness of breath; M79.89 Other specified soft tissue disorders; E55.9 Vitamin D deficiency, unspecified
CPT/HCPCS: 80048; 85025; 85610; 85730

== ENCOUNTER 2021-08-18 02:11 | Outpatient (CLI) | payer MEDICARE, BC, SELFPAY ==
--- NOTE | 2021-08-18 07:30 | DI.RAD_ITS ---
Exam(s) XR HIP RT COMPLETE AP PELVIS EXAM: XR HIP RT COMPLETE AP PELVIS INDICATION: r hip pain,M25.551. COMPARISON: No exams were available for comparison TECHNIQUE: 2D digital imaging was performed. AP frog-leg lateral views FINDINGS: [id number] right hip joint space narrowing. Periarticular spurring greatest superiorly. Mild periarticular spurring on the left. No left hip joint space narrowing. Mild spurring inferior SI lana ints and pubic symphysis. Degenerative disc changes L4-5 and L5-S1. IMPRESSION: Moderate degenerative changes of the right hip. DATA REPOSITORY: RADIATION DOSE DELIVERED:
== END 2021-08-18 02:31 ==
PROVIDERS: PCP Family Medicine; Visit Provider Family Medicine
DX: M25.551 Pain in right hip (principal); M16.11 Unilateral primary osteoarthritis, right hip
CPT/HCPCS: 73502

== ENCOUNTER 2021-11-14 01:58 | Outpatient (CLI) | payer MEDICARE, BC, SELFPAY ==
[2021-11-14 13:05] LABS: Source Nasal/Nares
[2021-11-14 16:43] LABS: COVID-19 PCR Negative (Negative)
== END 2021-11-14 01:59 | disposition home or self-care (01) ==
LOC: LBO 01:58
PROVIDERS: PCP Family Medicine; Visit Provider Internal Medicine Interventional Cardiology
DX: Z20.822 Contact with and (suspected) exposure to COVID-19 (principal); Z01.818 Encounter for other preprocedural examination
CPT/HCPCS: 87635

== ENCOUNTER 2022-03-02 02:19 | Outpatient (CLI) | payer MEDICARE, BC, SELFPAY ==
[2022-03-02 15:15] LABS: ALT 27 U/L (14-59); AST 20 U/L (15-37); Albumin 4.1 g/dL (3.4-5.0); Alkaline Phosphatase 49 U/L (46-116); Anion Gap 6.2 mmol/L (3-11); BUN 25 mg/dL (7-18); Bilirubin, Total 0.9 mg/dL (0.2-1.0); CO2 30.8 mmol/L (21.0-32.0); CREATININE 1.4 mg/dL (0.55-1.02); Chloride 99 mmol/L (98-107); Estimated GFR 36.18 (mL/min/1.73m2); Glucose 79 mg/dL (74-106); Potassium 3.8 mmol/L (3.5-5.1); Sodium 136 mmol/L (136-145); Total Protein 6.8 g/dL (6.4-8.2)
== END 2022-03-02 02:20 | disposition home or self-care (01) ==
LOC: LOS 02:19
PROVIDERS: PCP Family Medicine; Visit Provider Family Medicine
DX: I10 Essential (primary) hypertension (principal)
CPT/HCPCS: 36415; 80053

== ENCOUNTER 2022-06-11 03:24 | Outpatient (RCR) | payer MEDICARE, BC, SELFPAY ==
[2022-06-11] MEDS: Normal Saline Flush 10 ML SYR IVP (08:58)
[2022-06-11] MEDS: ZOLEDRONIC ACID/MANNITOL/WATER 5 MG/100 ML BTL 300 MG IVPB (08:58)
== END 2022-06-13 23:59 | disposition home or self-care (01) ==
LOC: INF 03:24
PROVIDERS: PCP Family Medicine; Visit Provider Family Medicine
DX: M81.0 Age-related osteoporosis without current pathological fracture (principal)
CPT/HCPCS: 96365; J3489

== ENCOUNTER → 2022-07-27 00:13 | Outpatient (CLI) | payer MEDICARE, BC, SELFPAY ==
--- OUTSIDE RECORDS SUMMARY | 2022-07-27 00:15 | XMS_ITS | Clinical Summary ---
:1940 Author Organization [facility] [place] [address] Care Team Providers Name Role Phone Zoey Lucas MD Primary Care Provider Allergies Active Allergy Reactions Severity Noted Date Comments Beta-Blockers 02/07/2011 (Beta-Adrenergic Blocking Agts) Doxazosin Mesylate 02/07/2011 Lisinopril 02/07/2011 Nickel 02/07/2011 Red Blood Cells Other (See Comments) High 11/01/2021 Anti bodies-Difficult to Crossmatch DO NOT REMOVE Please contact the Blood Bank at [phone] for questions. Medications Medication Sig Dispensed Refills Start Date End Date Status hydrocortisone 2.5 % 1 Appl(s), Top, 0 12/26/2010 Active cream Twice daily triamcinolone (KENALOG) Apply topically 0 12/26/2010 Active 0.1 % ointment as needed. escitalopram oxalate Take 10 mg by 0 Active (LEXAPRO) 10 mg Tablet mouth daily. CALCIUM CARBONATE/VITAMIN Take 1,200 mg 0 Active D3 (VITAMIN D-3 ORAL) by mouth daily. aspirin 81 mg Tablet, Take 81 mg by 0 Active Chewable mouth daily. predniSONE (DELTASONE) 5 Take 5 mg by 0 Active mg Tablet mouth daily. predniSONE (DELTASONE) 1 Take 2 mg by 0 01/01/2018 Active mg Tablet mouth daily. Takes with 5 mg = 7 mg Daily* losartan (Cozaar) 25 mg 50 mg 2 times 0 01/03/2021 Active Tablet daily. cholecalciferol, Vitamin 2,000 Units 0 03/13/2013 Active D3, 25 mcg (1,000 unit) daily. Capsule acetaminophen (Tylenol) Take 2 tablets 30 tablet 1 11/19/2021 Active 500 mg Tablet by mouth every 6 hours as needed for Pain. amLODIPine (Norvasc) 5 mg Take 1 tablet 0 11/19/2021 Active Tablet by mouth daily. hydroCHLOROthiazide Take 25 mg by 0 12/22/2021 Active (Hydrodiuril) 25 mg mouth daily. Tablet metoprolol succinate XL Take 25 mg by 0 12/06/2021 Active (Toprol-XL) 25 mg Tablet mouth daily. Sustained Release 24 hr amoxicillin (Amoxil) 500 Take 4 capsules 20 capsule 0 01/20/20 22 Active mg Capsule by mouth as needed (Take 4 tabs prior to dental procedures (2000 mg)). 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 Pre TAVR: peak gradient 59mmHg, Mean gradient 34mmHg, REGAN 0.86cm2, and CO 5.8L/min 2. Post TAVR: peak gradient 15mmhg, Mean gradient 9mmhg, REGAN 2.12cm2; trivial perivavular leak Giant cell arteritis 10/24/2015 Last Assessment & Plan: Formatting of is note might be different from the original. Noted vision loss in the left eye early October 2015. My examination revealed PION in the left eye. She was admitted for IV steroids after developing some peripheral right eye changes. Elevated ESR, sub sequent TA biopsy positive. On steroids per rheumatology. 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 Unchanged HVF today, stable temporal defect in the right, with diffuse depression in the left. Her optic ne rves are normal in the right, and diffus e pallor in the left. MRI brain/orbits revealed enlarged extra ocular muscles - TSH ordered is mildly elevated. This is likely thyroid related. Her TSH and free T4 is normal. Given that she is asymptomatic, without any diplopia- no acute management. F/u 1 year. Vision loss of left eye 10/20/2015 Last Assessment & Plan: Formatting of is note might be different from the original. Noted vision loss in the left eye a week ago, after occluding the right eye. Unclear exact onset of vision loss. No ocular pain. She endorses intermittent frontal headaches, and bilateral jaw pain after prolonged chewing. No tongue claudicati on/neck or shoulder pain/ no appetite change or weight loss. No preceding TVOs or diplopia. On examination today, Zeny L Otero nor mal vision in the right eye. Her left eye demonstrated reduced visual function, absent color vision, with a dense relative afferent pupillary defect that would sparks ggest an underlying optic nerve dysfunct ion. Static visual ochoa were full in the right eye, and diffusely depressed in the left. The optic nerves are healthy and pink bilaterally without any evidence of swelling. Given her symptoms, concern for GCA. 10- 15% of cases may present as a posterior ischemic optic neuropathy, with absent disc swelling. ESR, CBC + plts, CRP today. MRI brain/orbits to rule out compressive lesion. Update--> ESR elevated at 84. Her age adjusted ESR should be 42. High suspicion for GCA. Rheumatology regional maintenance manager aware- Dr. Kline, has kindly agreed to see her this afternoon. Immediate pred PO - [place] [facility] [place]. Patient to pick this up. Encounters Date Type Specialty Care Team Description 06/07/2022 TH Visit Pain and Spine Clary Castillo Spondylosis of lumbar ([facility]) Center M, POLICE CAPTAIN PRECINCT region without myelopathy or radiculopathy (Primary Dx) 05/09/2022 Ancillary Pain Management Janes Salazar Procedure MD [place] 05/09/2022 Surgery Pain Management Janes Salazar INJECTION, EPIDURAL, MD [place] LUMBAR OR SACRA L (CAUDAL), WITH IMAGING GUIDANC E (WRVU 1.8) 05/09/2022 Hospital Encounter Pain Management Janes Salazar Spin al stenosis of MD [place] lumbar region w ith neurogenic claudication 05/04/2022 Telephone Pain and Spine [place] [facility] R, RN from Last 3 Months Immunizations Name Administration Dates Next Due Influenza PF, Split (High Dose) 09/05/2016 Influenza Vaccine w/Preservative, Split 09/07/2015 Influenza Vaccine, Whole 10/09/2006 Moderna Covid-19 (Shovel Loader Operator 100mcg) Vaccine 08/16/2021, 2020, 11/10/2020 Family History Medical History Relation Comments Glaucoma Neg Hx Macular Degeneration Neg Hx Retinal Detachment Neg Hx Social History Tobacco Use Types Packs/Day Years Used Date Former Smoker Quit: 10/20/18 85 Smokeless Tobacco: Never Used Tobacco Cessation: Counseling Given: Yes Alcohol Use Standard Drinks/Week Comments Not Currently 0 (1 standard drink = 0.6 oz pure alcoho l) occasionaly wine in summer Alcohol Habits Answer Date Recorded How often do you have a drink containing Not asked alcohol? How many drinks containing alcohol do you Not asked have on a typical day when you are drinking? How often do you have six or more drinks on Not asked one occasion? Comment: occasionaly wine in summer08/29/2021 Sex Assigned at Date Recorded Female 02/10/2021 8:25 AM EDT Last Filed Vital Signs Vital Sign Reading Time Taken Comments Blood Pressure 155/80 05/09/2022 11:00 AM EDT Pulse 67 05/09/2022 10:04 AM EDT Temperature 36.7 ??C (98.1 ??F) 11/19/2021 7:36 AM EST Respiratory Rate 21 02/13/2022 9:18 AM EDT Oxygen Saturation 100% 05/09/2022 11:00 AM EDT Inhaled Oxygen Concentration - - Weight 77.1 kg (170 lb) 05/09/2022 10:04 AM EDT Height 160 cm (5' 3) 05/09/2022 10:04 AM EDT Body Mass Index 30.11 05/09/2022 10:04 AM EDT Plan of Treatment Health Maintenance Due Date Last Done Comments Tdap adult 1960 Tetanus vaccine 1960 Zoster vaccine (1 of 2) 1991 Bone Density Scan 2006 Pneumoccocal Vaccine: 65+ (1 - PCV) 2006 Covid-19 Vaccine (4 - Booster for 10/11/2021 08/16/2021, , Moderna series) 11/10/2020 Influenza (Flu) vaccine (1 of 1 - 06/14/2022 09/05/2016, , Influenza standard series) 10/09/2006 Medical Devices Implanted Type Area Research Geneticist Device Shelf Model / Serial Identifier Expiration / Lot Date Iol,[id number],19.0 ([id number]) ([employer]) - [id number] IMPLANTS Right: Robin 02/10/2021 [id number] 19.0 / Implanted: Qty: 1 on 12/05/2016 by Primo Rodríguez MD at [facility] - [id number] / [id number] Procedures Procedure Name Priority Date/Time Associated Diagnosis Comme nts FILM LIBRARY Routine 05/09/2022 11:41 Results for this STORAGE ONLY PAIN AM EDT procedure are in [facility] the results section. INJECTION, 05/09/2022 10:43 Spinal stenosis of EPIDURAL, LUMBAR OR AM EDT lumbar region with SACRAL (CAUDAL), neurogenic WITH IMAGING claudication GUIDANCE (WRVU 1.8) INJECTION, Routine 05/09/2022 9:53 AM Spinal stenosis of EPIDURAL, LUMBAR OR EDT lumbar region with SACRAL (CAUDAL), neurogenic WITH IMAGING claudication GUIDANCE from Last 3 Months Results Film Library- Storage Only pain Clinic [facility] (05/09/2022 11:41 AM EDT) Specimen (Source) Anatomical Location Collection Method / Collectio n Time Received Time / Laterality Volume Narrative [facility] - 05/09/2022 11:41 AM EDT See PACS for result report. Janes Salazar MD IMG FILM LIBRARY ORDERABLES Performing Organization Address City/State/ZIP Code Phon e Number [facility] [place], [place] from Last 3 Months Insurance Payer Benefit Plan / Subscriber ID Effective Dates Phone Addre ss Type Group MEDICARE MEDICARE PART [id number] 2006-Presen [phone] [place] [id number] [employer] [facility] FEDERAL [id number] 2008-Prese [address] [place] [address] Advance Directives Documents on File Type Date Recorded Patient Hotel Assistant General Manager Explanati on Personal Hotel Assistant General Manager 08/29/2021 1:39 PM anita jack Personal Hotel Assistant General Manager 08/29/2021 4:27 PM forrest moreno Personal Hotel Assistant General Manager 08/29/2021 4:27 PM henry joe Personal Hotel Assistant General Manager 08/29/2021 4:32 PM kimmie joe Advance Directives and 11/04/2015 12:30 PM Living Will Latest Code Status on File Code Status Date Activated Date Inactivated Comments Attempt Cardiopulmonary Resuscitation - 11/17/2021 7:53 AM 1:43 PM Inpatient Code Status decision made by: Patient Attempt Cardiopulmonary Resuscitation - 10/31/2021 11:55 AM 2021 3:11 PM Inpatient Code Status decision made by: Patient Attempt Cardiopulmonary Resuscitation - 08/29/2021 12:13 PM 08/14 7:35 PM Inpatient Code Status decision made by: Patient Full Code 10/24/2015 5:10 PM 10/27/2015 2:08 PM Does patient have capacity to make decision: Yes Care Teams Pattern Technician Relationship Specialty Start Date End Date Zoey Lucas MD PCP - General 09/05/[address] [place] [address]
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
--- OUTSIDE RECORDS SUMMARY | 2022-07-27 00:16 | XMS_ITS | Encounter Summary ---
:1940 Author Organization [facility] [place] [address] Care Team Providers Name Role Phone Zoey Lucas MD Primary Care Provider Encounter Details Date Type Department Care Team Description 03/08/2022 Telephone Pain and Spine [place] serrato [place] [facility] [place] [phone] Social History Tobacco Use Types Packs/Day Years [...] asked one occasion? Comment: occasionaly wine in summer 08/29/2021 Sex Assigned at Date Recorded Female 02/10/2021 8:25 AM EDT documented as of this encounter Miscellaneous Notes Telephone Encounter - Jadyn Shaffer RN - 03/08/2022 2:57 PM EDT Post-procedure phone call from patient to report their response to the Cluneal Nerve Block procedureperformed on 02/13/22 in the [facility] by Janes Salazar MD. This is patient's: first Cluneal Nerve Block Patient reports that after the procedure they experienced: _x_ Patient reported post-block numeric pain scale: 0 /10 (average pain since procedure) _x_ Post-procedure pain has been reduced by 95%. (> 80% Medicare/P/Medicaid) _x_ If relief > 80% with ability to perform painful maneuvers; schedule 2nd MBB: yes _x_ Post-procedure pain has been reduced by 95%. (> 50% all other insurers) _x_ Pain relief: complete If pain is reduced, it lasted: Yes 24 hours or greater What is current pain score on a scale of 0-10? 8 Does patient's pain make activities of daily living difficult? If yes, please describe what activityand level of difficulty. Very difficult to stand or walk for any distance. Pertinent recent trauma or surgery? no If yes; consult w referring provider If No, proceed Review of Pertinent Medical History for changes since last MBB: - h/o Thrombocytopenia/bleeding tendency/platelet dysfunction: no - h/o Liver disease; abnormal liver function: no - h/o Chronic kidney disease (CKD); abnormal kidney function: no - Patient on dialysis? no -Patient has pacemaker/defibrillator: no Is patient taking an anticoagulant? None Is patient taking any NSAIDS/supplements? None Is patient taking aspirin? yes If yes, is it prescribed? yes If yes, what reason is it prescribed? Aortic Valve Stent Is patient taking Antibiotics? No Has patient been on greater than 40mg of steroid 14 days or longer? No Has patient had any steroid injections anywhere in his/her body within the last two weeks? No Does patient request sedation? no Does patient need NPO guidelines? no Does patient have allergies to contrast/local anesthetic/steroid? No Any changes? no Based on the information provided above and after discussion with the patient, the following actionswill be taken: _x_ Patient meets criteria to proceed to second Left at Cluneal Nerve Block, order will be pended toDr. Salazar. Patient denies further questions at this time and expressed understanding of plan. Encouraged patient to call pain clinic RN for future questions or concerns. documented in this encounter Plan of Treatment Not on filedocumented as of this encounter Visit Diagnoses Not on filedocumented in this encounter Care Teams Park Superintendent Relationship Specialty Start Date End Date Zoey Lucas MD PCP - General 09/05/[address] [place] [address] documented as of this encounter
--- OUTSIDE RECORDS SUMMARY | 2022-07-27 00:16 | XMS_ITS | Encounter Summary ---
:1940 Author Organization [facility] [place] [address] Care Team Providers Name Role Phone Zoey Lucas MD Primary Care Provider Reason for Referral Diagnostic Test (Routine) - Closed Specialty Diagnoses / Procedures Referred By Contact Refer red To Contact Cardiology Diagnoses S/P TAVR (transcatheter aortic valve replacement) Devendra Ernst PA [facility] Non-Inv Card Lab Procedures Echocardiogram Transthoracic([facility]) [facility] [place] [address] [place] [address] Referral ID Status Reason Start Date Expiration Date Visits V isits Requested Authorized [id number] Closed Specialty 11/19/2021 11/19/2022 1 1 Service Requested Reason for Visit Diagnostic Test (Routine) - Closed Specialty Diagnoses / Procedures Referred By Contact Refer red To Contact Cardiology Diagnoses S/P TAVR (transcatheter aortic valve replacement) Devendra Ernst PA [facility] Non-Inv Card Lab Procedures Echocardiogram Transthoracic([facility] or [facility]) [facility] [address] [place] [address] [place] [address] Referral ID Status Reason Start Date Expiration Date Visits V isits Requested Authorized [id number] Closed Specialty 11/19/2021 11/19/2022 1 1 Service Requested Encounter Details Date Type Department Care Team Description 01/19/2022 Hospital Encounter Non-Invasive Dylan, S/P TAVR Cardiology Lab Florencio Sanches (transcatheter [facility] DR goins) [facility] [place] [phone] Social History Tobacco Use Types Packs/Day Years [...] AM EDT documented as of this encounter Medications at Time of Discharge Medication Sig Dispensed Refills Start Date End Date losartan (Cozaar) 25 mg 50 mg 2 times 0 1 Tablet daily. cholecalciferol, Vitamin D3, 2,000 Units daily. 0 03/13/2013 25 mcg (1,000 unit) Capsule predniSONE (DELTASONE) 1 mg Take 2 mg by mouth 0 01/01/2018 Tablet daily. Takes with 5 mg = 7 mg Daily* predniSONE (DELTASONE) 5 mg Take 5 mg by mouth 0 Tablet daily. aspirin 81 mg Tablet, Take 81 mg by 0 Chewable mouth daily. escitalopram oxalate Take 10 mg by 0 (LEXAPRO) 10 mg Tablet mouth daily. CALCIUM CARBONATE/VITAMIN D3 Take 1,200 mg by 0 (VITAMIN D-3 ORAL) mouth daily. hydrocortisone 2.5 % cream 1 Appl(s), Top, 0 12/12 Twice daily triamcinolone (KENALOG) 0.1 Apply topically as 0 12/26/2010 % ointment needed. hydroCHLOROthiazide Take 25 mg by 0 12/22/2021 (Hydrodiuril) 25 mg Tablet mouth daily. metoprolol succinate XL Take 25 mg by 0 (Toprol-XL) 25 mg Tablet mouth daily. Sustained Release 24 hr amoxicillin (Amoxil) 500 mg Take 4 capsules by 20 capsule 0 01/19/2022 Capsule mouth as needed (Take 4 tabs prior to dental procedures (2000 mg)). acetaminophen (Tylenol) 500 Take 2 tablets by 30 tablet 1 0 11/19/2021 mg Tablet mouth every 6 hours as needed for Pain. amLODIPine (Norvasc) 5 mg Take 1 tablet by 0 /03/2022 Tablet mouth daily. documented as of this encounter Plan of Treatment Not on filedocumented as of this encounter Procedures Procedure Name Priority Date/Time Associated Comments Diagnosis ECHOCARDIOGRAM COMPLETE Routine 01/19/2022 3:08 PM S/P TAVR Results for this EDT (transcatheter procedure are in aortic valve the results replacement) section. documented in this encounter Results ECHOCARDIOGRAM COMPLETE (01/19/2022 3:08 PM EDT) Anatomical Region Laterality Modality Other Specimen (Source) Anatomical Collection Method Collection Time Re ceived Time Location / / Volume Laterality 01/19/2022 2:28 PM EDT Narrative 01/19/2022 3:55 PM EDT ?[facility] ? [facility] ?[address] ? [place] [address] ?Voice: ?Fax: ? Echocardiogram Report Name: JAVIER JOE L ? Study Date: 01/19/2022 02:28 PM ? Patient Location: 4A : 1940 ? Height: 160 cm ? Account: [id number] Age: 81 yrs ? Weight: 79 kg Gender: Female ?BSA: 1.8 m2 Ordering Physician: ULI RICHARDSON Referring Physician: DEVENDRA ERNST Performed By: Viktoria Mazariegos RDCS Reason For Study: S/P TAVR Exam Location: [facility]. Interpretation Summary Normal LV size and function. EF 68%. Inc reased LV wall thickness and mass. Normal RV size and function. Normal PASP . 23 mm Gulshan in AoV position implanted 2021. Mild paravalve leak. Mean gradient 10 mm Hg. Procedure Complete-[id number]. Satisfactory quality. Th ere is normal sinus rhythm. Left Ventricle There is no ventricular septal defect. L eft ventricle is of normal size. Wall thickness is mildly increased. Left vent ricular systolic function is normal. The left ventricular ejection fraction is 68 % by Gilliam's biplane. There are no segmental wall motion abnormalities. Right Ventricle The right ventricle is of normal size. R ight ventricular systolic function is normal. Left Atrium The left atrium is normal. There is no e vidence for a patent foramen ovale. Right Atrium The right atrium is normal. Aortic Valve The date or year of insertion is 022. There is a 23 mm transcatheter valve (Gulshan 3) in the aortic position. The p eak gradient across the prosthesis is 20 mmHg. The mean gradient across the prost hesis is 10 mmHg. There appears to be mild paravalvular regurgitation. Mitral Valve The mitral valve is structurally and fun ctionally normal. Moderate calcification of the posterior mitral annulus. There i s trace mitral regurgitation. Tricuspid Valve The tricuspid valve is structurally norm al. There is trace tricuspid regurgitation. Pulmonic Valve The pulmonic valve appears to be structu rally and functionally normal. Great Arteries The aortic root is of normal size. No ab normalities are identified. Venous Inferior vena cava is normal in size. In ferior vena cava collapse greater than 50% with respiration. Pericardium/Pleural The pericardium appears normal. Hemodynamics The peak right ventricular systolic pres sure is 27 mmHg. The estimated right atrial pressure is 3mmHg. Left ventricul ar filling pressure is normal. Left ventricular diastolic function is abnorm al. Ejection Fraction ?2D Measurem ents ? Volumes LV Biplane EF: 67.9 % ? IVSd: 1.3 cm ? LA Volume Index: ?L VIDd: 4.9 cm ?L VIDs: 2.7 cm ?20.7 ml/m2 ?L VPWd: 1.2 cm ?EDV Biplane: 89.7 ml ? EDV Biplane Index: 49.2 ?L V mass(C)d: 245.0 grams ? ESV Biplane: 28.8 ml ?L V mass(C)dI: 134.4 grams/m2 ?? ESV Biplane Index: 15.8 ?A o root diam: 3.2 cm ? SV(LVOT): 85.2 ml ?A o root diam index: 1.7 ?LV Stroke Volume: 85.2 ml ?a sc Aorta Diam: 3.2 cm ?L VOT diam: 2.0 cm ?SI(LVOT): 46.7 ml/m2 Doppler TR max javi: 245.2 cm/sec Ao V2 VTI: 45.0 cm Ao valve max: 18.2 mmHg Ao valve mean: 10.1 mmHg MV E max javi: 81.6 cm/sec MV A max javi: 134.1 cm/sec MV E/A: 0.61 MV dec time: 0.34 sec Lat Peak E' Javi: 7.9 cm/sec E/ e' (lat): 10.3 Med Peak E' Javi: 8.3 cm/sec E/e' (med): 9.9 E/e' Average: 10.1 REGAN(I,D): 1.9 cm2 Dimensionless index Aov: 0.60 ? mild paravalvular leak I ?WMSI = 1.00 ? % Normal = 1 00 ?Segments ??Size X - Cannot ?? 1 - Normal ?? 2 - ? 3 - Akinetic 4 - ?1-2 ? small Interpret ? Hypoki netic ?Dyskinetic ?? 3-5 ? moderate 5 - ? 6-14 ?large Aneurysmal ?15-16 ?? diffuse Procedure Note Janes Larson MD - 01/19/2022Formatti pedro of this note might be different from the original. [address] [place] [address] [address] [place] [address] Voice: Fax: Echocardiogram Report Name: JAVIER JOE Study Date: 2021 02:28 PM Patient Location: : 1940 Height: 160 cm Account: [id number] Age: 81 yrs Weight: 79 kg Gender: Female BSA: 1.8 m2 Ordering Physician: ULI RICHARDSON Referring Physician: DEVENDRA ERNST Performed By: Viktoria Mazariegos RDCS Reason For Study: S/P TAVR Exam Location: [facility]. Interpretation Summary Normal LV size and function. EF 68%. Inc reased LV wall thickness and mass. Normal RV size and function. Normal PASP . 23 mm Gulshan in AoV position implanted 2021. Mild paravalve leak. Mean gradient 10 mm Hg. Procedure Complete-[id number]. Satisfactory quality. Th ere is normal sinus rhythm. Left Ventricle There is no ventricular septal defect. L eft ventricle is of normal size. Wall thickness is mildly increased. Left vent ricular systolic function is normal. The left ventricular ejection fraction is 68 % by Gilliam's biplane. There are no segmental wall motion abnormalities. Right Ventricle The right ventricle is of normal size. R ight ventricular systolic function is normal. Left Atrium The left atrium is normal. There is no e vidence for a patent foramen ovale. Right Atrium The right atrium is normal. Aortic Valve The date or year of insertion is 022. There is a 23 mm transcatheter valve (Gulshan 3) in the aortic position. The p eak gradient across the prosthesis is 20 mmHg. The mean gradient across the prost hesis is 10 mmHg. There appears to be mild paravalvular regurgitation. Mitral Valve The mitral valve is structurally and fun ctionally normal. Moderate calcification of the posterior mitral annulus. There i s trace mitral regurgitation. Tricuspid Valve The tricuspid valve is structurally norm al. There is trace tricuspid regurgitation. Pulmonic Valve The pulmonic valve appears to be structu rally and functionally normal. Great Arteries The aortic root is of normal size. No ab normalities are identified. Venous Inferior vena cava is normal in size. In ferior vena cava collapse greater than 50% with respiration. Pericardium/Pleural The pericardium appears normal. Hemodynamics The peak right ventricular systolic pres sure is 27 mmHg. The estimated right atrial pressure is 3mmHg. Left ventricul ar filling pressure is normal. Left ventricular diastolic function is abnorm al. Ejection Fraction 2D Measurements Volume s LV Biplane EF: 67.9 % IVSd: 1.3 cm LA Vo lume Index: LVIDd: 4.9 cm LVIDs: 2.7 cm 20.7 ml/m2 LVPWd: 1.2 cm EDV Biplane: 89.7 ml EDV Biplane Index: 49.2 LV mass(C)d: 245.0 grams ESV Biplane: 2 8.8 ml LV mass(C)dI: 134.4 grams/m2 ESV Biplan e Index: 15.8 Ao root diam: 3.2 cm SV(LVOT): 85.2 ml Ao root diam index: 1.7 LV Stroke Volum e: 85.2 ml asc Aorta Diam: 3.2 cm LVOT diam: 2.0 cm SI(LVOT): 46.7 ml/m2 Doppler TR max javi: 245.2 cm/sec Ao V2 VTI: 45.0 cm Ao valve max: 18.2 mmHg Ao valve mean: 10.1 mmHg MV E max javi: 81.6 cm/sec MV A max javi: 134.1 cm/sec MV E/A: 0.61 MV dec time: 0.34 sec Lat Peak E' Javi: 7.9 cm/sec E/ e' (lat): 10.3 Med Peak E' Javi: 8.3 cm/sec E/e' (med): 9.9 E/e' Average: 10.1 REGAN(I,D): 1.9 cm2 Dimensionless index Aov: 0.60 mild paravalvular leak I WMSI = 1.00 % Normal = 100 Segments Size X - Cannot 1 - Normal 2 - 3 - Akinetic 4 - 1-2 small Interpret Hypokinetic Dyskinetic 3-5 mod erate 5 - 6-14 large Aneurysmal 15-16 diffuse Uli Richardson MD ECHO ORDERABLES documented in this encounter Visit Diagnoses Diagnosis S/P TAVR (transcatheter aortic valve rep lacement) documented in this encounter Care Teams Laboratory Equipment Cleaner Relationship Specialty Start Date End Date Zoey Lucas MD PCP - General 09/05/[address] [place] [address] documented as of this encounter
--- OUTSIDE RECORDS SUMMARY | 2022-07-27 00:16 | XMS_ITS | Encounter Summary ---
:1940 Author Organization [facility] [place] [address] Care Team Providers Name Role Phone Zoey Lucas MD Primary Care Provider Encounter Details Date Type Department Care Team Description 05/09/2022 Hospital Encounter Pain Management Janes Salazar al stenosis of Yuki Matias MD lumbar region with [facility] DR corey Richard [place] [id number] [phone] Social History Tobacco Use Types Packs/Day Years [...] AM EDT documented as of this encounter Last Filed Vital Signs Vital Sign Reading Time Taken Comments Blood Pressure 155/80 05/09/2022 11:00 AM EDT Pulse 67 05/09/2022 10:04 AM EDT Temperature - - Respiratory Rate - - Oxygen Saturation 100% 05/09/2022 11:00 AM EDT Inhaled Oxygen Concentration - - Weight 77.1 kg (170 lb) 05/09/2022 10:04 AM EDT Height 160 cm (5' 3) 05/09/2022 10:04 AM EDT Body Mass Index 30.11 05/09/2022 10:04 AM EDT documented in this encounter Discharge Instructions Discharge InstructionsShin Lucero - 05/09/2022 9:55 AM EDT Pain [facility] Discharge Instructions: You were seen today by Surgeon(s): Janes Salazar MD Schwingler, Paul M, MD The following was performed: Procedure(s) (LRB): INJECTION, EPIDURAL, LUMBAR OR SACRAL (CAUDAL), WITH IMAGING GUIDANCE (WRVU 1.8) (Left) It is normal that the injection site will be sore for up to 48 hours. [x] You may also experience mild stiffness in the joint near the injection site. You may resume your normal activities: tomorrow. You may shower today. DO NOT tub bathe, use whirlpools, hot tubs or pool therapy for 2 days. Remove Band-Aid(s) later today/tomorrow. Do not drive until tomorrow. Use caution walking/climbing stairs as you may be unsteady on your feet. You may use your usual medications, including pain medications, as directed, unless otherwise instructed. You may use an ice pack as needed for the first 24 hours, on for 20 minutes then off for 20 minutes.Do not apply heat today. Attempt to empty your bladder 4-6 hours after your procedure. [ ] If you have diabetes, monitor your blood sugars frequently. If your blood sugar increases and isof concern, contact your Primary Care Provider. You received the following medications: Medications Given During Procedure Date/Time Order Dose Route Action 05/09/2022 1055 dexAMETHasone (PF) (Decadron) (10 mg/mL) injection 15 mg Epidural Given 05/09/2022 1055 iohexoL (Omnipaque) (240 mg/mL) solution 2 mL Epidural Given During regular business hours, please phone the Pain Management Center at with any questions or if the following or other troubling symptoms develop: 1) Prolonged dizziness or weakness (more than 1 day). 2) Localized swelling, redness or drainage at the injection site(s). 3) Temperature of 101 degrees that lasts for more than 4 hours. After 5 PM or on weekends, call and ask for Pain Clinic provider on-call. If you are unable to reach the Pain Management Center and have a complication, please call your Primary Care Provider or proceed to your local emergency department. Shin Lucero Special instructions documented in this encounter Medications at Time of Discharge [...] succinate XL Take 25 mg by 0 2 (Toprol-XL) 25 mg Tablet mouth daily. Sustained [...] 5 mg Take 1 tablet by 0 /0 03/2022 Tablet mouth daily. documented as of this encounter H&P Notes Janes Salazar MD - 05/09/2022 9:36 AM EDT Patient Name: Zeny Joe Patient Age: 81 y.o. Birthdate: 1940 Admit date: 05/09/2022 Attending Physician: Janes Salazar MD PREPROCEDURE HISTORY AND PHYSICAL Date of Visit: May 09, 2022 Chief Complaint: Chronic low back pain, left sided HPI: Subjective Zeny Joe is a 81 y.o. 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 The patient denies any recent NSAID or anticoagulation. The history is obtained from the patient, and I have reviewed medical records provided by the referring physician and located in the electronic medical record to fill in gaps in the patient's recollection of events, treatments and outcomes. LOCATION: left lumbar area. PAIN LEVEL AT REST 06/23 PAST MEDICAL HISTORY: Past Medical History: Diagnosis Date ??? Allergic state ??? Anxiety ??? Arthritis RHEUMATOID ??? Asthma ??? Chronic kidney disease single kidney ??? 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 Giant cell arteritis 10/2015 ??? Hypertension ??? Skin disease PAST SURGICAL HISTORY: Past Surgical History: Procedure Laterality Date ??? CATARACT REMOVAL Right 12/05/2016 CE/IOL OD w/ SK ??? 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 LUNG SURGERY 1983 Left upper lobe- precancer ??? PRO EXTRACAPSULAR CATARACT RMVL INSERTION IO LENS PROSTH CPLX WO ECP Right 12/05/2016 CATARACT EXTRACTION, EXTRACAPSULAR, WITH LENS INSERTION, COMPLEX (WRVU 11.08) performed by Primo Rodríguez MD at [facility] OSC ? ? PRO INJECTION ANES AGENT &/OR STEROID OTHER PERIPHERAL NERVE/BRANCH Left 02/13/2022 NERVE BLOCK, OTHER PERIPHERAL NERVE OR BRANCH (WRVU 0.75) [facility] ??? PRO TEMPORAL ARTERY LIGATN OR BX Bilateral 10/25/2015 LIGATION OR BIOPSY, TEMPORAL ARTERY performed by Sukhdev Bhatti MD at [facility] MAIN OR ??? YAG CAPSULOTOMY Right 03/20/2019 SK ALLERGIES: Red blood cells, Beta-blockers (beta-adrenergic blocking agts), Doxazosin mesylate, Lisinopril, and Nickel MEDICATIONS: Medications 05/09/22 1003 Medication Sig Taking? hydroCHLOROthiazide (Hydrodiuril) 25 mg Tablet Take 25 mg by mouth daily. Yes metoprolol succinate XL (Toprol-XL) 25 mg Tablet Sustained Release 24 hr Take 25 mg by mouth daily. Yes acetaminophen (Tylenol) 500 mg Tablet Take 2 tablets by mouth every 6 hours as needed for Pain. Yes amLODIPine (Norvasc) 5 mg Tablet Take 1 tablet by mouth daily. Yes losartan (Cozaar) 25 mg Tablet 50 mg 2 times daily. Yes cholecalciferol, Vitamin D3, 25 mcg (1,000 unit) Capsule 2,000 Units daily. Yes predniSONE (DELTASONE) 1 mg Tablet Take 2 mg by mouth daily. Takes with 5 mg = 7 mg Daily* Yes predniSONE (DELTASONE) 5 mg Tablet Take 5 mg by mouth daily. Yes aspirin 81 mg Tablet, Chewable Take 81 mg by mouth daily. Yes escitalopram oxalate (LEXAPRO) 10 mg Tablet Take 10 mg by mouth daily. Yes CALCIUM CARBONATE/VITAMIN D3 (VITAMIN D-3 ORAL) Take 1,200 mg by mouth daily. Yes amoxicillin (Amoxil) 500 mg Capsule Take 4 capsules by mouth as needed (Take 4 tabs prior to dental procedures (2000 mg)). hydrocortisone 2.5 % cream 1 Appl(s), Top, Twice daily triamcinolone (KENALOG) 0.1 % ointment Apply topically as needed. Patient taking differently: Apply topically as needed. FAMILY HISTORY: Family History Problem Relation Age of Onset ??? Glaucoma Neg Hx ??? Macular Degeneration Neg Hx ??? Retinal Detachment Neg Hx SOCIAL HISTORY: Social History Socioeconomic History ??? Marital status: Spouse name: Not on file ??? Number of children: Not on file ??? Years of education: Not on file ??? Highest education level: Not on file Occupational History ??? Occupation: retired from [employer] Tobacco Use ??? Smoking status: Former Smoker Quit date: 10/20/1983 Years since quittin.5 ??? Smokeless tobacco: Never Used Vaping Use [...] on file Housing Stability: Not on file ROS: Patient denies any recent illness, infection, or rash. PHYSICAL EXAM: BP 157/59 Pulse 67 Ht 160 cm (5' 3) Wt 77.1 kg (170 lb) LMP (LMP Unknown) SpO2 99% BMI 30.11 kg/m?? GEN: Patient in no acute distress RESP: Patient breathing comfortably on room air SKIN: No rash, skin breakdown, or infection noted near intended procedure site. PSYCH: Patient alert and oriented ASSESSMENT: Assessment Lumbar radiculopathy PLAN: There are no contraindications to the planned procedure. Proceed with procedure as outline above . Risks, benefits, and alternatives were discussed. Rashad David MD Pain Medicine Fellow PGY-5 I have seen and examined the patient and reviewed the fellow's above history and agree with the details as written. The assessment and plan were formulated in discussion with me, and I agree with them as documented. Janes Salazar MD, MS Power House Engineer of Anesthesiology [facility] [employer] [address] [phone] / [facility] documented in this encounter Miscellaneous Notes Op Note - Janes Salazar MD - 05/09/2022 10:54 AM EDT Pain Management Operative Note Patient Name: Zeny Joe : [id number] MR#: [id number] Case Date: 05/09/2022 Surgeon: Surgeon(s) and Role: * Janes Salazar MD - Primary * Rashad Daivd MD - Fellow Preoperative diagnosis: lumbar radiculopathy Postoperative diagnosis: Same Procedure(s) (LRB): INJECTION, EPIDURAL, LUMBAR OR SACRAL (CAUDAL), WITH IMAGING GUIDANCE (WRVU 1.8) (Left) LUMBAR INTERLAMINAR EPIDURAL STERIOID INJECTION PROCEDURE NOTE Ms. Zeny Joe has been referred to the Pain Management Center for a lumbar epidural steroid injection by Zoey Lucas MD [address] [place] [address]. The patient complains of low back pain with pain radiating down the left leg. Ms. Joe was greeted by the nurse who verified patients name and . The patient was then taken to the fluoroscopy suite. Ms. Joe was interviewed and the medical record reviewed. There were no medical, pharmacologic, radiographic, or other structural contraindications to attempting fluoroscopically guided lumbar epiduralsteroid injection. Risks and potential side effects, as well as potential benefits of the procedure were reviewed with Ms. Joe. Her voiced concerns were addressed. After I was assured that informed consent was obtained, the patient consent form was signed. Standard time-out procedure was performed. Ms. Joe was placed in the prone position on the fluoroscopy table and automated blood pressure cuffand pulse oximeter applied. The skin entry point for entering/approaching the L2-L3 epidural space for the lumbar epidural steroid injection was marked. Following thorough chlorhexadine preparation of the skin and draping and 1% lidocaine infiltration of the skin entry point and subcutaneous tissues, an 18 gauge Touhy needle was placed and advanced under fluoroscopic guidance. Due to difficulty accessing the epidural space the decision was made to move down to the L3/4 Level. Again there was 1% lidocaine infiltration of the skin entry point and subcutaneous tissues, an 18 gauge Touhy needle was placed and advanced under fluoroscopic guidance and with loss of resistance technique into the L3-L4 epidural space. Needle tip placement and depth were aided and confirmed by fluoroscopy. There was no paresthesia or return of blood or CSF through the needle. 2 cc's of Omnipaque 240 was injected with clear epidural spread confirmed with fluoroscopy. 15 mg of preservative- free Dexamethasone (10 mg/cc) wasinjected (5 mg was wasted). There was not any unusual discomfort expressed by Ms. Joe. (5 mg of Dexamethasone was wasted) Ms. Joe's vital signs were stable throughout the procedure and were as recorded in nursing records. Follow up plans and appointments were discussed with Ms. Joe. The patient is set to follow up with Clary Castillo. Post procedure instruction was given as documented in nursing records and having met discharge criteria he was discharged from the Pain Management Center. Comments: If this procedure is successful in helping with pain and improving her function, it can becompleted a maximum of 3 times every 12 months. Her post- procedure pain level was 0/10. Rashda David MD Pain Medicine Fellow PGY-5 I have seen and examined the patient and reviewed the fellow's above history and I agree with the details as written. I was the attending physician supervising the fellow in the above care and I was present with the fellow for the entire procedure. Janes Salazar MD, MS Power House Engineer of Anesthesiology [facility] [employer] [address] [phone] / [facility] CC: Zoey Lucas MD [address] [address] documented in this encounter Plan of Treatment Not on filedocumented as of this encounter Procedures Procedure Name Priority Date/Time Associated Diagnosis Comme nts INJECTION, EPIDURAL, 05/09/2022 10:43 AM Spinal stenos is of LUMBAR OR SACRAL EDT lumbar region with (CAUDAL), WITH IMAGING neurogenic claudic ation GUIDANCE (WRVU 1.8) INJECTION, EPIDURAL, Routine 05/09/2022 9:53 AM Spinal stenosi s of LUMBAR OR SACRAL EDT lumbar region with (CAUDAL), WITH IMAGING neurogenic claudic ation GUIDANCE documented in this encounter Visit Diagnoses Diagnosis Spinal stenosis of lumbar region with ne urogenic claudication Spinal stenosis, lumbar region, with em rogenic claudication documented in this encounter Active and Recently Administered Medications Times are shown in EDT. PRN Medication Order 05/07/2022 05/08/2022 05/09/2022 dexAMETHasone (PF) (Decadron) (10 mg/mL) injection (CANCELED) 1055 (Given - Provider: Janes Salazar MD - Comment: THERESE) ONCE PRN, Starting on Sat05/09/22 at 105 5, Until Sat05/09/22 at 1318, Intra- Operative (Intra-Procedure), Routine iohexoL (Omnipaque) (240 mg/mL) solution (CANCELED) 1055 (Given - Provider: Janes Salazar MD - Comment: THERESE) ONCE PRN, Starting on Sat05/09/22 at 105 5, Until Sat05/09/22 at 1318, Intra- Operative (Intra-Procedure), Routine documented in this encounter Care Teams Physical Education Specialist Relationship Specialty Start Date End Date Zoey Lucas MD PCP - General 09/05/[address] [place] [address] documented as of this encounter
--- OUTSIDE RECORDS SUMMARY | 2022-07-27 00:16 | XMS_ITS | Encounter Summary ---
:1940 Author Organization [facility] Address [facility] [place] [address] Care Team Providers Name Role Phone Zoey Lucas MD Primary Care Provider Encounter Details Date Type Department Care Team Description 05/09/2022 Ancillary Procedure Pain Management Nikolai Cullen, [facility] [address] Richard [place] [address] [place] [address] [phone] (Wo rk) Social History Tobacco Use Types Packs/Day Years [...] AM EDT documented as of this encounter Plan of Treatment Not on filedocumented as of this encounter Procedures Procedure Name Priority Date/Time Associated Diagnosis Comme nts FILM LIBRARY Routine 05/09/2022 11:41 AM Results for this STORAGE ONLY PAIN EDT procedure are in [facility] the results section. documented in this encounter Results Film Library- Storage Only pain Clinic [facility] (05/09/2022 11:41 AM EDT) Specimen (Source) Anatomical Location Collection Method / Collectio n Time Received Time / Laterality Volume Narrative RAD - 05/09/2022 11:41 AM EDT See PACS for result report. Janes Salazar MD IMG FILM LIBRARY ORDERABLES Performing Organization Address City/State/ZIP Code Phon e Number [place], [place] documented in this encounter Visit Diagnoses Not on filedocumented in this encounter Care Teams Air Transportation Provider Relationship Specialty Start Date End Date Zoey Lucas MD PCP - General 09/05/[address] [place] [address] documented as of this encounter
--- OUTSIDE RECORDS SUMMARY | 2022-07-27 00:16 | XMS_ITS | Encounter Summary ---
:1940 Author Organization [facility] [place] [place] [address] Care Team Providers Name Role Phone Zoey Lucas MD Primary Care Provider Encounter Details Date Type Department Care Team Description 11/20/2021 Telephone Cardiac [place] [phone] Social History Tobacco Use Types Packs/Day [...] this encounter Miscellaneous Notes Telephone Encounter - Tasia Ramírez RN - 11/20/2021 2:44 PM EST I called and spoke with this patient regarding participation in outpatient cardiac rehab. She is s/pTAVR and was discharged home over the weekend. She tells me that she does not drive much in the winter and would prefer to exercise at home. She walks around the [place] in her kitchen a few times a day for exercise. Of note, she mentioned that she has seen floaters occasionally since going home and wonders if sheshould be concerned. I transferred the call to Dr. Pena nurse and instructed her to leave a message to have someone call her if she gets the voice message machine. documented in this encounter Plan of Treatment Not on filedocumented as of this encounter Visit Diagnoses Not on filedocumented in this encounter Care Teams Studio Designer Relationship Specialty Start Date End Date Zoey Lucas MD PCP - General 09/05/10 [address] [place] [address] documented as of this encounter
--- OUTSIDE RECORDS SUMMARY | 2022-07-27 00:16 | XMS_ITS | Encounter Summary ---
:1940 Author Organization [facility] [address] Care Team Providers Name Role Phone Zoey Lucas MD Primary Care Provider Reason for Visit Auth/Cert Specialty Diagnoses / Procedures Referred By Contact Refer red To Contact Diagnoses Aortic valve stenosis Severe aortic stenosis [I35.0] TAVR . Procedures PRG COMBINED RIGHT & LEFT HEART CATH W/INJ L VENTRICULOGRAPHY, IMG S&I PRO REPLACE AORTIC VALVE (TAVR/GONZALES)PERC FEMORAL ARTERY APPROACH CARDIAC CATHETERIZATION COMBINED RIGHT & LEFT HEART CATH,INC INJ FOR L VENTRICULOGRAPHY @TRANSCATHETER AORTIC VALVE REPLACEMENT (TAVR), PERCUTANEOUS FEMORAL (WRVU 25.13) TRANSESOPHAGEAL ECHO DURING CATH/EP PROCEDURE Referral ID Status Reason Start Date Expiration Date Visits Requ ested Visits Authorized [id number] 1 1 Encounter Details Date Type Department Care Team Description 11/17/2021 Hospital Encounter Non-Invasive Issac Mcdowell Severe aortic Cardiology Lab Yuki Rizvi MD stenosis [facility] [place] [id number] [phone] Social History Tobacco Use Types Packs/Day Years [...] Tablet daily. cholecalciferol, Vitamin D3, 2,000 Units 0 2012 25 mcg (1,000 unit) Capsule daily. predniSONE (DELTASONE) 1 mg Take 2 mg by 0 2017 Tablet mouth daily. Takes with 5 mg = 7 mg Daily* predniSONE (DELTASONE) 5 mg Take 5 mg by 0 Tablet mouth daily. aspirin 81 mg Tablet, Take 81 mg by 0 Chewable mouth daily. escitalopram oxalate Take 10 mg by 0 (LEXAPRO) 10 mg Tablet mouth daily. CALCIUM CARBONATE/VITAMIN D3 Take 1,200 mg by 0 (VITAMIN D-3 ORAL) mouth daily. hydrocortisone 2.5 % cream 1 Appl(s), Top, 0 12/12 Twice daily triamcinolone (KENALOG) 0.1 Apply topically 0 % ointment as needed. acetaminophen (Tylenol) 500 Take 2 tablets by 30 tablet 1 0 11/19/2021 mg Tablet mouth every 6 hours as needed for Pain. amLODIPine (Norvasc) 5 mg Take 1 tablet by 0 /03/2022 Tablet mouth daily. metoprolol succinate XL daily. 0 10/06/2020 0 11/19/2021 (Toprol-XL) 25 mg Tablet Sustained Release 24 hr amLODIPine (NORVASC) 5 mg Take 2 tablets by 30 tablet 11 11/19/2021 Tablet mouth daily. hydrochlorothiazide 25 MG = 1 0 12/26/201011/19 (HYDRODIURIL) 25 mg tablet Tablet(s), PO, QAM amoxicillin (Amoxil) 500 mg Take 4 capsules 4 capsule 0 03/202201/19/2022 Capsule by mouth as needed (dental procedures). acetaminophen (TYLENOL) 650 Take 1,300 mg by 0 11/19/2021 mg Tablet Sustained Release mouth every 8 hours as needed for Pain. Do not exceed 6 tabs in 24 hours documented as of this encounter Plan of Treatment Not on filedocumented as of this encounter Procedures Procedure Name Priority Date/Time Associated Comments Diagnosis ECHOCARDIOGRAM COMPLETE Routine 11/17/2021 9:46 AM Severe aort ic Results for this EST stenosis procedure are i n the results section. documented in this encounter Results ECHOCARDIOGRAM COMPLETE (11/17/2021 9:46 AM EST) Anatomical Region Laterality Modality Other Specimen (Source) Anatomical Location Collection Method / Collectio n Time Received Time / Laterality Volume 11/17/2021 Narrative 11/17/2021 9:58 AM EST Procedure: ?Transthoracic Echocardiogram Patient: ?THIERNOElliott PARKNE L ?(Age): 1940(81y) Med Rec#: ? [id number] ?Sex: ?M ? Site Loc: ? [facility] ?Ht / Wt: ??160(cm)/78(kg) Pt. Loc: ?Buffer Inflated Pad ?BSA: ?1.81 Study Date: ?? 11/17/2021 ?Pt. Type: Inpatient Tape: ? Referring: CHRISSY Reading: Rigoberto Aggarwal ([id number]) R D Internship: Friend Elvis Diagnosis: *Nonrheumatic aortic (valve) stenosis ( I35.0) *Echocardiogram for TAVR guidance. SUMMARY: 1. Pre TAVR: peak gradient 59mmHg, Mean gradient 34mmHg, REGAN 0.86cm2, and CO 5.8L/min 2. Post TAVR: ??peak gradient 15mmhg, Me an gradient 9mmhg, REGAN 2.12cm2; trivial perivavular leak Findings ? : Study Quality: Left Ventricle: ? The left ventricul ar chamber size is normal. ?Mild concentric left ventricular h ypertrophy is observed. ?Global left ventricular systolic f unction appears hyperdynamic. Ejection fraction is estimated to be 75% . ?There are no left ventricular segm ental wall motion abnormalities. Left Atrium: ? The left atrium is no rmal in size. Right Ventricle: ? The right ventric le is normal in size. ?Right ventricular global systolic function is normal. ?The estimated pulmonary artery sys tolic pressure is 26 mmHg.Plus RA pressure Aortic Valve: ? The peak instantaneo us trans-valvular gradient across the aortic valve is 15 mmHg. ?The mean trans-valvular gradient a cross ??the aortic valve is 9 mmHg. ?The calculated aortic valve area i s 2.12 cm2. ?The size of the prosthetic aortic valve is 23mm.S3 ultra TAVR ?The prosthetic aortic valve was im planted on 11/17/2021. ?There is a paravalvular leak of th e bio-prosthetic aortic valve present.Trivial Mitral Valve: ? The mitral valve ni flets are mildly thickened. ?There is mitral annular calcificat ion. ?There is trace mitral regurgitatio n present. Tricuspid Valve: ? The tricuspid bert ve leaflets are morphologically normal. ?There is mild (1+/4+) tricuspid re gurgitation present. Pericardium: ? There is no pericardi al effusion. ?A pericardial fat pad is visualize d. Aorta: ? The aortic root is normal i n size. ?There is mild dilatation of the as cending aorta. 3.6cm Pulmonary Artery: ? The main pulmona ry artery appears normal. Misc: ? Two-dimensional echo, spectr al Doppler and color Doppler performed. Chambers 2D ?Value ?Units (Range) ? IVSd (2D) ? 1.2 ?cm ? LVPWd (2D) ?1.2 ?cm ? IVS:LVPW ratio (2D) 1 ?ratio ? LVIDd (2D) ?4.3 ?cm ? LVIDs (2D) ?2.5 ?cm ? EF Teichholz (2D) ?? 73.2 ? % ? Ao root diameter (2D3.6 ?cm (2.1 - 3.6) ? Ascending Ao ?3.6 ?cm (2 - 3.5) ? Volumes/Mass ?Value ?Units (Range) ? LA ESV BP (MOD) inde22.4 ? ml/m2 ? Diastolic/Systolic Function ?Value ?Units (Range) ? MV E-wave Vmax ?0.96 ? m/sec ? MV deceleration [id number] ?msec ? MV A-wave Vmax ?1.28 ? m/sec ? MV E:A ratio ?0.8 ?ratio ? LV E:e' septal ratio18 ? ratio ? LV E:e' lateral rati11 ? ratio ? Aortic Valve ?Value ?Units (Range) ? AV Vmax ? 1.91 ? m/sec ? AV VTI ?45.4 ? cm ? AV peak gradient ?15 ? mmHg ? AV mean gradient ?9 ?mmHg ? LVOT diameter ? 2 ?cm ? LVOT Vmax ? 1.29 ? m/sec ? LVOT VTI ?27.1 ? cm ? LVOT peak gradient ??7 ?mmHg ? LVOT mean gradient ??5 ?mmHg ? SV LVOT ? 85 ? ml ? CO LVOT ? 4.8 ?l/min ? REGAN (continuity Vmax2.12 ? cm2 ? Tricuspid Valve ?Value ?Units (Range) ? RVSP ?26 ? mmHg ? This report has been electronically sign ed by: _ Rigoberto Aggarwal M.D. ? 11/17/2021 0 9:57:46 Images reviewed and interpretation verif ied [facility] Procedure Note Rigoberto Aggarwal MD - 11/17/2021Formatt ing of this note might be different from the original. Procedure: Transthoracic Echocardiogram Patient: THIERNO Melara (Age): 1939(81y) Med Rec#: [id number] Sex: M Site Loc: [facility] Ht / Wt: 160(cm)/78(kg) Pt. Loc: Buffer Inflated Pad BSA: 1.81 Study Date: 11/17/2021 Pt. Type: Inpatie nt Tape: Referring: CHRISSY Reading: Rigoberto Aggarwal () R D Internship: Elvis Miller Diagnosis: *Nonrheumatic aortic (valve) stenosis ( I35.0) *Echocardiogram for TAVR guidance. SUMMARY: 1. Pre TAVR: peak gradient 59mmHg, Mean gradient 34mmHg, REGAN 0.86cm2, and CO 5.8L/min 2. Post TAVR: peak gradient 15mmhg, Mean gradient 9mmhg, REGAN 2.12cm2; trivial perivavular leak Findings : Study Quality: Left Ventricle: The left ventricular sana mber size is normal. Mild concentric left ventricular hypert rophy is observed. Global left ventricular systolic functi on appears hyperdynamic. Ejection fraction is estimated to be 75% . There are no left ventricular segmental wall motion abnormalities. Left Atrium: The left atrium is normal i n size. Right Ventricle: The right ventricle is normal in size. Right ventricular global systolic funct ion is normal. The estimated pulmonary artery systolic pressure is 26 mmHg.Plus RA pressure Aortic Valve: The peak instantaneous tra ns-valvular gradient across the aortic valve is 15 mmHg. The mean trans-valvular gradient across the aortic valve is 9 mmHg. The calculated aortic valve area is 2.1 2 cm2. The size of the prosthetic aortic valve is 23mm.S3 ultra TAVR The prosthetic aortic valve was implant ed on 11/17/2021. There is a paravalvular leak of the bio -prosthetic aortic valve present.Trivial Mitral Valve: The mitral valve leaflets are mildly thickened. There is mitral annular calcification. There is trace mitral regurgitation pre sent. Tricuspid Valve: The tricuspid valve ni flets are morphologically normal. There is mild (1+/4+) tricuspid regurgi tation present. Pericardium: There is no pericardial eff usion. A pericardial fat pad is visualized. Aorta: The aortic root is normal in size . There is mild dilatation of the ascendi ng aorta. 3.6cm Pulmonary Artery: The main pulmonary art nery appears normal. Misc: Two-dimensional echo, spectral Dop pler and color Doppler performed. Chambers 2D Value Units (Range) IVSd (2D) 1.2 cm LVPWd (2D) 1.2 cm IVS:LVPW ratio (2D) 1 ratio LVIDd (2D) 4.3 cm LVIDs (2D) 2.5 cm EF Teichholz (2D) 73.2 % Ao root diameter (2D3.6 cm (2.1 - 3.6) Ascending Ao 3.6 cm (2 - 3.5) Volumes/Mass Value Units (Range) LA ESV BP (MOD) inde22.4 ml/m2 Diastolic/Systolic Function Value Units (Range) MV E-wave Vmax 0.96 m/sec MV deceleration [id number] msec MV A-wave Vmax 1.28 m/sec MV E:A ratio 0.8 ratio LV E:e' septal ratio18 ratio LV E:e' lateral rati11 ratio Aortic Valve Value Units (Range) AV Vmax 1.91 m/sec AV VTI 45.4 cm AV peak gradient 15 mmHg AV mean gradient 9 mmHg LVOT diameter 2 cm LVOT Vmax 1.29 m/sec LVOT VTI 27.1 cm LVOT peak gradient 7 mmHg LVOT mean gradient 5 mmHg SV LVOT 85 ml CO LVOT 4.8 l/min REGAN (continuity Vmax2.12 cm2 Tricuspid Valve Value Units (Range) RVSP 26 mmHg This report has been electronically sign ed by: _ Rigoberto Aggarwal M.D. 11/17/2021 09:57:4 6 Images reviewed and interpretation verconstance mccrary [facility] Issac Mcdowell MD ECHO ORDERABLES documented in this encounter Visit Diagnoses Diagnosis Severe aortic stenosis Aortic valve disorders documented in this encounter Care Teams Climatologist Relationship Specialty Start Date End Date Zoey Lucas MD PCP - General 09/05/[address] [place] [address] [address] [place] [address] documented as of this encounter
--- OUTSIDE RECORDS SUMMARY | 2022-07-27 00:16 | XMS_ITS | Encounter Summary ---
:1940 Author Organization [facility] Address [facility] [place] [address] Care Team Providers Name Role Phone Zoey Lucas MD Primary Care Provider Encounter Details Date Type Department Care Team Description 05/09/2022 Surgery Pain Management Mina Cullen MD INJECTION, EPIDURAL, [facility] ([place]UDAL), WITH IMAGING [facility] PAIN MANAGEME NT GUIDANCE (WRVU 1.8) [place] [address] [place] [address] [phone] Social History Tobacco Use Types Packs/Day Years [...] 11.08) performed by Primo Rodríguez MD at [facility] OSC ? ? PRO INJECTION ANES AGENT &/OR STEROID OTHER PERIPHERAL NERVE/BRANCH Left 02/13/2022 NERVE BLOCK, OTHER PERIPHERAL NERVE OR BRANCH (WRVU 0.75) [facility] ??? PRO TEMPORAL ARTERY LIGATN OR BX Bilateral 10/25/2015 LIGATION OR BIOPSY, TEMPORAL ARTERY performed by Sukhdev Bhatti MD at [facility] MAIN OR ??? YAG CAPSULOTOMY Right [...] file Occupational History ??? Occupation: retired from [employer] Tobacco Use ??? Smoking status: Former Smoker [...] them as documented. Janes Salazar MD, MS Animal Care Provider of Anesthesiology [facility] [employer] [address] [address] / [facility] documented in this encounter Miscellaneous Notes Op Note - Janes Salazar MD - 05/09/2022 10:54 AM EDT Pain Management Operative Note Patient Name: Zeny Joe : [id number] MR#: [id number] Case Date: 05/09/2022 Surgeon: Surgeon(s) and Role: * Janes Salazar MD - Primary * Rashad David MD - Fellow Preoperative diagnosis: lumbar radiculopathy Postoperative diagnosis: Same Procedure(s) (LRB): INJECTION, EPIDURAL, LUMBAR OR SACRAL (CAUDAL), WITH IMAGING GUIDANCE (WRVU 1.8) (Left) LUMBAR INTERLAMINAR EPIDURAL STERIOID INJECTION PROCEDURE NOTE Ms. Zeny Joe has been referred to the Pain Management Center for a lumbar epidural steroid injection by Zoey Lucas MD [address] [place] [address]. The patient complains of low back pain [...] Her post- procedure pain level was 0/10. Rashad David MD Pain Medicine Fellow PGY-5 I have seen and examined the patient and reviewed the fellow's above history and I agree with the details as written. I was the attending physician supervising the fellow in the above care and I was present with the fellow for the entire procedure. Janes Salazar MD, MS Animal Care Provider of Anesthesiology [facility] [address] [address] / [facility] CC: Zoey Lucas MD [facility] [address] [address] documented in this encounter Plan of Treatment [...] stenosis, lumbar region, with em rogenic claudication Spinal stenosis of lumbar region with ne urogenic claudication Spinal stenosis, lumbar region, with em rogenic claudication documented in this encounter Administered Medications Inactive Administered Medications - up to 3 most recent administrations Medication Order MAR Action Action Date Dose Rate Site dexAMETHasone (PF) (Decadron) (10 Given 05/09/2022 10:55 AM EDT 15 mg mg/mL) injection ONCE PRN, Starting on Sat05/09/22 at 1055, Until Sat05/09/22 at 1318, Intra-Operative (Intra-Procedure), Routine iohexoL (Omnipaque) (240 mg/mL) solution Given 05/09/2022 10:55 AM EDT 2 mLs ONCE PRN, Starting on Sat05/09/22 at 1055, Until Sat05/09/22 at 1318, Intra-Operative (Intra-Procedure), Routine documented in this encounter Active and Recently [...] Routine documented in this encounter Care Teams Retail Cashier Associate Relationship Specialty Start Date End Date Dobbertin, Zoey, MD PCP - General 09/05/[address] [place] [address] documented as of this encounter
--- OUTSIDE RECORDS SUMMARY | 2022-07-27 00:16 | XMS_ITS | Encounter Summary ---
:1940 Author Organization [facility] [place] [address] Care Team Providers Name Role Phone Zoey Lucas MD Primary Care Provider Encounter Details Date Type Department Care Team Description 12/01/2021 Telephone Pain and Spine Ned serrato at [facility] [place] [address] Social History Tobacco Use Types Packs/Day [...] on filedocumented in this encounter Care Teams Design Editor Relationship Specialty Start Date End Date Zoey Lucas MD PCP - General 09/05/[address] [place] [address] documented as of this encounter
--- OUTSIDE RECORDS SUMMARY | 2022-07-27 00:16 | XMS_ITS | Encounter Summary ---
:1940 Author Organization [facility] [place] [address] Care Team Providers Name Role Phone Zoey Lucas MD Primary Care Provider Encounter Details Date Type Department Care Team Description 02/09/2022 Orders Only Pain and Spine Center at Clary Castillo APRN [facility] Lizet carbajal [place] [address] [place] [address] [phone] (Wo rk) Social History Tobacco Use Types [...] on filedocumented in this encounter Care Teams Denture Laboratory Technician Relationship Specialty Start Date End Date Zoey Lucas MD PCP - General 09/05/[address] [place] [address] documented as of this encounter
--- OUTSIDE RECORDS SUMMARY | 2022-07-27 00:16 | XMS_ITS | Encounter Summary ---
:1940 Author Organization [facility] [place] [address] Care Team Providers Name Role Phone Zoey Lucas MD Primary Care Provider Encounter Details Date Type Department Care Team Description 02/08/2022 Telephone Pain and Spine Ned serrato at [facility] Marilee Carson, [place] [address] Social History Tobacco Use Types Packs/Day [...] this encounter Miscellaneous Notes Telephone Encounter - Marilee Carson RN - 02/08/2022 9:18 AM EDT Contact made with patient or rental representative as identified in contacts 1. Patient instructed to arrive at 0915 on 02/13/22 with their local hazmat driver for their cluneal nerve block procedure. Please plan to spend about 2 hours at the center. (3 hours for RFA) 2. Has pt started any new medications or supplements in the past two weeks? No 3. Have any of the following occurred within the two weeks before the procedure date? a. Patient is having a Covid vaccine or other vaccine No b. Patient has been exposed to anybody with a contagious illness such as Covid, flu, No c. Patient is taking antibiotics to treat an infection No d. Patient has any skin rashes, breakdown, blisters or open wounds No e. Patient has had any hospitalizations, ED visits, surgery, other procedure, dental procedure No f. Patient has taken oral steroids or had a steroid injection No g. Does patient have any of the following symptoms that are NEW and NOT explained by another health condition: fever or chills, cough, shortness of breath or difficulty breathing, fatigue, muscle or body aches, headache, new loss of taste or smell, sore throat, congestion or runny nose, nausea or vomit ing, diarrhea. No If yes, the patient has been directed to the covid hotline for testing prior to their procedure. (route telephone note to: [facility] covid 19 nurse triage with routing comment stating pt needs covid test prior to procedure and give date of procedure, add name and MRN to tracking tool). h. Has the patient's pain resolved or significantly improved such as a rating of 3/10 or less? No 4. Was patient instructed to stop any medications? No if yes: a. Name of medication(s): b. Confirm date of last dose: 5. Is patient having a nerve block: Yes a. If yes instructed to not take any pain medication for 12 hours before your procedure. 6. Patient instructed to take any prescribed medications that they were not told to stop, especiallyblood pressure medication, because their procedure may be cancelled if their blood pressure is too high. 7. Was patient instructed to follow NPO guidelines: No if yes, the following instructions were reviewed: a. You may eat up to 6 hours before your procedure b. You may have clear liquids only up to 2 hours before your procedure: water, apple juice, carleen nita, sprite, popsicles, broth, tea or coffee plain or with sweetener, absolutely no dairy products, nomilk including soy, oat, almond. 8. IF RFA: Does patient have a pacemaker? No a. If yes, document that cardiology was called and notified. 9. Additional notes if applicable: Patient expressed understanding and agreement with instructions Yes Patient denies further questions Yes documented in this encounter Plan of Treatment Not on filedocumented as of this encounter Visit Diagnoses Not on filedocumented in this encounter Care Teams Loan Clerk Relationship Specialty Start Date End Date Zoey Lucas MD PCP - General 09/05/[address] [place] [address] [address] [place] [address] documented as of this encounter
--- OUTSIDE RECORDS SUMMARY | 2022-07-27 00:16 | XMS_ITS | Encounter Summary ---
:1940 Author Organization [facility] [place] [address] Care Team Providers Name Role Phone Zoey Lucas MD Primary Care Provider Encounter Details Date Type Department Care Team Description 04/17/2022 Telephone Pain and Spine Ned serrato at [facility] [place] [address] Social History Tobacco Use Types Packs/Day [...] this encounter Miscellaneous Notes Telephone Encounter - Ella Camargo - 04/17/2022 5:47 PM EDT 04/17/[address] Mcdowell- We are seeking permission for this patient to hold her aspirin for 6 days prior to a lumbar epiduralsteroid injection with Dr. Janes Salazar here in the [facility]. Please reply to thismessage with one of the following options: 1. APPROVED to hold for multiple procedures within a 12 month period 2. APPROVED to hold for this procedure only. 3. DENIED - Patient may not hold aspirin. Thank you, Ella Stebbins for [facility] Temporary Anticoagulant Hold Initial Request Patient: Zeny Joe [id number] Request for the above named patient to temporarily stop Aspirin for 6 days prior to requested lumbarepidural steroid injection injection/procedure has been sent to: Dr. Mcdowell office via note routing. Ella Camargo documented in this encounter Plan of Treatment Not on filedocumented as of this encounter Visit Diagnoses Not on filedocumented in this encounter Care Teams Tow Truck Dispatcher Relationship Specialty Start Date End Date Zoey Lucas MD PCP - General 09/05/[address] [place] [address] documented as of this encounter
--- OUTSIDE RECORDS SUMMARY | 2022-07-27 00:16 | XMS_ITS | Encounter Summary ---
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 Janes Salazar MD Procedures PRO INJECTION ANES AGENT &/OR STEROID OTHER PERIPHERAL NERVE/BRANCH [facility] PAIN MANAGEMENT [place], [place] [address] Phone: Fax: Referral ID Status Reason Start Date Expiration Date Visits Requ ested Visits Authorized [id number] 01/26/2022 1 1 Encounter Details Date Type Department Care Team Description 02/13/2022 Ancillary Procedure Pain Management Nikolai Cullen, [facility] [place] [address] [place] [address] [phone] (Wo rk) Social History Tobacco Use Types [...] Associated Diagnosis Comme nts FILM LIBRARY Routine 02/13/2022 3:09 PM Results f or this STORAGE ONLY PAIN EDT procedure are in [facility] the results section. documented in this encounter Results Film Library- Storage Only pain [facility] (02/13/2022 3:09 PM EDT) Specimen (Source) Anatomical Location Collection Method / Collectio n Time Received Time / Laterality Volume Narrative [facility] - 02/13/2022 3:09 PM EDT See PACS for result report. Janes Salazar MD IMG FILM LIBRARY ORDERABLES Performing Organization Address City/State/ZIP Code Phon e Number [place], [place] documented in this encounter Visit Diagnoses Not on filedocumented in this encounter Care Teams Salt Grinder Relationship Specialty Start Date End Date Zoey Lucas MD PCP - General 09/05/[address] [place] [address] documented as of this encounter
--- OUTSIDE RECORDS SUMMARY | 2022-07-27 00:16 | XMS_ITS | Encounter Summary ---
:1940 Author Organization [facility] [place] [address] Care Team Providers Name Role Phone Zoey Lucas MD Primary Care Provider Encounter Details Date Type Department Care Team Description 04/03/2022 Telephone Pain and Spine Ned serrato at [facility] [place] [phone] Social History Tobacco Use Types Packs/Day [...] Telephone Encounter - Jadyn Shaffer RN - 04/03/2022 2:05 PM EDT In coming call from Zeny wanting to know what the next steps are do to she is in a lot of pain. Itold her I will forward the message on to Anabela Castillo APRN and Dr Salazar for advisement. Please advise. documented in this encounter Plan of Treatment Not on filedocumented as of this encounter Visit Diagnoses Not on filedocumented in this encounter Care Teams Energy Management Specialist Relationship Specialty Start Date End Date Zoey Lucas MD PCP - General 09/05/[address] [place] [address] documented as of this encounter
--- OUTSIDE RECORDS SUMMARY | 2022-07-27 00:16 | XMS_ITS | Encounter Summary ---
:1940 Author Organization [facility] [place] [address] Care Team Providers Name Role Phone Zoey Lucas MD Primary Care Provider Encounter Details Date Type Department Care Team Description 01/19/2022 Office Visit Cardiology at [facility] Issac Mcdowell, Aortic stenosis, severe; [facility] Vision loss of left eye; [facility] Coronary artery disease, uns pecified vessel or lesion type, unspecified whether angina present, unspecified whether [place] [address] CARDIOLOGY DEPT. [phone] [place], [place] [address] Social History Tobacco Use Types Packs/Day Years [...] Sign Reading Time Taken Comments Blood Pressure 139/61 01/19/2022 4:23 PM EDT Pulse 68 01/19/2022 4:23 PM EDT Temperature - - Respiratory Rate - - Oxygen Saturation 99% 01/19/2022 4:23 PM EDT Inhaled Oxygen - - Concentration Weight 78.2 kg (172 lb 6.4 01/19/2022 4:23 PM 168 lbs R eported Home oz) EDT Weight Height 160 cm (5' 3) 01/19/2022 4:23 PM Reported EDT Body Mass Index 30.54 01/19/2022 4:23 PM EDT documented in this encounter Progress Notes Corrine Plata APRN - 01/19/2022 4:00 PM EDT Images from the original note were not included. [facility] [address] [place], [place] [id number] Structural Heart Follow Up Subjective: HPI: Zeny Joe is a 81 y.o. female with past medical history of hypertension, status post left upper lobectomy (tumor benign), former smoker, status post remote nephrectomy, spinal stenosis and severe aortic stenosis status post TAVR 11/18/2021 with 23 mm S3 ultra valve. She developed a new left bundle branch block and 1'AVB immediately postop. She did not have any bradycardic events or pauses. EP was consulted who recommended monitoring. By POD2, her LBBB and 1'AVB resolved. No further intervention or monitoring was required thereafter per EP. She had no complications of her access sites. EKG today reveals sinus rhythm, narrow QRS, no evidence of heart block. Echo revealed preserved EF, well-seated THV valve with mild PVL, mean gradient 10 mmHg. Today she reports she is feeling well. She notes that she has significantly more energy since her procedure, and has been busy around the house rearranging furniture and getting her garden ready. BP: (139)/(61) Today in clinic. She reports that her losartan was recently uptitrated to 100 mg. Of note her renal function has slightly declined with creatinine of 1.5 from 1.32 previously. She has no complaints at today's visit. Patient Active Problem List Diagnosis Code ??? 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 Aortic stenosis, severe I35.0 ??? CAD (coronary artery disease) I25.10 ROS: 12+ ROS reviewed and negative except as detailed in the HPI. Medications: Current Outpatient Medications Medication Sig Note Dispense Refill ??? hydroCHLOROthiazide (Hydrodiuril) 25 mg Tablet Take 25 mg by mouth daily. ??? metoprolol succinate XL (Toprol-XL) 25 mg Tablet Sustained Release 24 hr Take 25 mg by mouth daily. ??? acetaminophen (Tylenol) 500 mg Tablet Take 2 tablets by mouth every 6 hours as needed for Pain. 30 tablet 1 ??? amoxicillin (Amoxil) 500 mg Capsule Take 4 capsules by mouth as needed (dental procedures). 4 capsule 0 ??? amLODIPine (Norvasc) 5 mg Tablet Take 1 tablet by mouth daily. ??? losartan (Cozaar) 25 mg Tablet 50 mg 2 times daily. ??? cholecalciferol, Vitamin D3, 25 mcg (1,000 unit) Capsule 2,000 Units daily. ??? predniSONE (DELTASONE) 1 mg Tablet Take 2 mg by mouth daily. 01/22/2018: Received from: External Pharmacy ??? predniSONE (DELTASONE) 5 mg Tablet Take 5 mg by mouth daily. ??? aspirin 81 mg Tablet, Chewable Take 81 mg by mouth daily. ??? escitalopram oxalate (LEXAPRO) 10 mg Tablet Take 10 mg by mouth daily. ??? CALCIUM CARBONATE/VITAMIN D3 (VITAMIN D-3 ORAL) Take 1,200 mg by mouth daily. ??? hydrocortisone 2.5 % cream 1 Appl(s), Top, Twice daily ??? triamcinolone (KENALOG) 0.1 % ointment Apply topically as needed. (Patient taking differently: Apply topically as needed.) Objective: Vitals: Vitals: 01/19/22 1623 BP: 139/61 Patient Position: Sitting Pulse: 68 SpO2: 99% Weight: 78.2 kg (172 lb 6.4 oz) Height: 160 cm (5' 3) Physical Exam: General: Pleasant female no acute distress HEENT: Normocephalic, atraumatic, benign NECK: Supple, no masses, FROM CV: Normal rate, regular rhythm, no audible murmur RESP: CTAB, moving air well, symmetric chest excursion GI: Soft, nd, nttp EXT: No cyanosis/clubbing, no edema, preserved distal pulses NEURO: No gross focal deficits, normal gait PSYC: Appropriate mood and affect, alert and oriented DERM: No rash, wwp Diagnostics: Recent Results (from the past 72 hour(s)) Comprehensive metabolic panel (non-fasting) Result Value Glucose Lvl 135 BUN 34 (H) Creatinine 1.51 (H) Sodium 139 Potassium 4.1 Chloride 99 CO2 28 Anion Gap 12 Calcium 10.4 Total Protein 7.4 Albumin 4.7 AST 16 ALT 22 Alk Phos 44 Total Bilirubin 1.0 Estimated GFR 32 (L) Hemogram Result Value WBC 9.2 RBC 3.96 (L) Hemoglobin 12.0 Hematocrit 37.3 MCV 94.2 MCH 30.3 MCHC 32.2 Platelets 237 RDWSD 46.7 (H) RDWCV 13.5 MPV 11.2 nRBC % Auto 0.0 nRBC Abs Auto 0.000 Differential, Automated Result Value Neutrophils % 81.0 Neutr Abs (ANC) 7.45 (H) Lymphocytes % 12.7 Lymphocytes Abs 1.2 Monocytes % 4.5 Monocyte Abs 0.4 Eosinophils % 0.1 Eosinophils Abs 0.0 Basophils % 0.8 Basophils Abs 0.1 Immature Gran % 0.90 Lida Gran Abs 0.08 (H) Echocardiogram 01/19/2022 Normal LV size and function. EF 68%. Increased LV wall thickness and mass. Normal RV size and function. Normal PASP. 23 mm Gulshan in AoV position implanted Nov 2021. Mild paravalve leak. Mean gradient 10 mm Hg. TAVR 12/05/21 ?? 1. Severe aortic stenosis at baseline 2. Successful TAVR with 23mm ultra valve using conscious sedation 3. Echo post shows good valve performance, no leak, mean gradient of 9 mm Hg 4. Development of LBBB post crossing valve with wire with no other heart block 5. Echo shows good LV performance, no pericardial effusion Assessment and Plan: Assessment 1. Severe s/p TAVR 2. Hypertension 3. TIFFANIE, s/p nephrectomy 4. Upcoming dental procedure 5. Former Smoker 6. NOAM lobectomy 7. Spinal Stenosis Zeny Joe is a 81 y.o. female who presents to the structural heart team in follow up of her recent TAVR procedure. Her aortic valve is well seated and functioning appropriately without significantleak. She is aware of the need to continue aspirin 81 mg daily as well as prophylactic antibiotics prior to dental procedures. I recommended she wait until at least 3 months post her TAVR procedure before undergoing any dental work; she is planning to have some work done soon but has not yet made an appointment. I emphasized the need to take antibiotics prior to her procedure. Additionally her creatinine is noted to be 1.5 today which has declined since the time of her procedure at which time it was1.2. I recommend that she continue to follow closely with her PCP, and possibly nephrology if this continues to decline, given her history of nephrectomy. Recommend consideration another antihypertensive agent and lieu of losartan should renal function continued to decline. Additionally she reports she has upcoming cluneal nerve block scheduled with the pain clinic. From a cardiac standpoint, she requires no further cardiac work-up prior to this procedure. Follow up: One year in structural heart clinic. Anticipate sooner follow up with her general proofer prepress Dr. Indigo Plata APRN Thank you for the opportunity to participate in this patient's cardiovascular care. Issac Mcdowell MD - 01/19/2022 4:00 PM EDT The pateint was seen and examined with Corrine Plata APRN. The plan of management was constructed in conjunction with her, please see her note with which I fully agree. In brief, she has done well since her TAVR. Please see note below with which I agree. documented in this encounter Plan of Treatment Not on filedocumented as of this encounter Procedures Procedure Name Priority Date/Time Associated Diagnosis Comme nts EKG 12-LEAD Routine 01/19/2022 4:30 PM Aortic stenosis, Resul ts for this EDT severe procedure are i n the results section . documented in this encounter Results EKG 12 Lead (01/19/2022 4:30 PM EDT) Component Value Ref Range Test Analysis Performed Pathologis t Method Time At Signature Ventricular rate 64 BPM MUSE SYSTEM Atrial Rate 64 BPM MUSE SYSTEM P-R Interval 188 ms MUSE SYSTEM QRS Duration 76 ms MUSE SYSTEM Q-T Interval 404 ms MUSE SYSTEM QTC Calculated 416 ms MUSE SYSTEM (Bezet) Calculated P [place] 65 degrees MUSE SYSTEM Calculated R [place] -7 degrees MUSE SYSTEM Calculated T [place] 67 degrees MUSE SYSTEM INTERPRETATION Normal sinus rhythm with sinus arrhythmia MUSE SYSTEM Normal ECG When compared with ECG of 19-NOV-2021 07:53, T wave amplitude has increased in Inferior leads Nonspecific T wave abnormality, improved in Anterolateral le ads Confirmed by MD Najma, Whitman ([id number]) on 01/21/2022 10:12:4 4 AM Specimen Anatomical Collection Method Collection Time Receive d Time (Source) Location / / Volume Laterality 01/19/2022 4:30 PM 2 EDT 10:12 AM EDT Corrine Plata APRN ECG ORDERABLES Performing Organization Address City/State/ZIP Code Phon e Number MUSE SYSTEM documented in this encounter Visit Diagnoses Diagnosis Aortic stenosis, severe Aortic valve disorders Vision loss of left eye Unqualified visual loss, one eye Coronary artery disease, unspecified ves enedelia or lesion type, unspecified whether angina present, unspecified whether nhi ve or transplanted heart documented in this encounter Care Teams Conformal Pad Former Relationship Specialty Start Date End Date Zoey Lucas MD PCP - General 09/05/[address] [place] [address] documented as of this encounter
--- OUTSIDE RECORDS SUMMARY | 2022-07-27 00:16 | XMS_ITS | Encounter Summary ---
:1940 Author Organization [facility] [place] [address] Care Team Providers Name Role Phone Zoey Lucas MD Primary Care Provider Encounter Details Date Type Department Care Team Description 11/22/2021 Notes Only Cardiology at [facility] Phoebe Restrepo, [place] [address] Social History Tobacco Use Types Packs/Day [...] documented as of this encounter Progress Notes Phoebe Restrepo RN - 11/22/2021 9:00 AM ESTSummary: Structural Heart Notes Contacted Ms Joe to follow up on reported floaters and elevated blood pressure. She indicated that her blood pressure has consistently been 170s-180s/80s and bilateral floaters persists. We discussed resuming metoprolol and Hctz, she exhibits understanding. She has a follow up appointment with her PCP 11/24/2021. She will plan to call if BP does not come down to baseline or if symptoms persist. Plan: Continue to follow 30 day post TAVR f/u pending documented in this encounter Plan of Treatment Not on filedocumented as of this encounter Visit Diagnoses Not on filedocumented in this encounter Care Teams Press Clippings Cutter And Paster Relationship Specialty Start Date End Date Zoey Lucas MD PCP - General 09/05/[address] [place] [address] documented as of this encounter
--- OUTSIDE RECORDS SUMMARY | 2022-07-27 00:16 | XMS_ITS | Encounter Summary ---
:1940 Author Organization [place] [address] Care Team Providers Name Role Phone Zoey Lucas MD Primary Care Provider Reason for Referral Diagnostic Test (Routine) - Closed Specialty Diagnoses / Procedures Referred By Contact Refer red To Contact Cardiology Diagnoses S/P TAVR (transcatheter aortic valve replacement) Charlene Ernst PA [facility] Non-Inv Card Lab Procedures Echocardiogram Transthoracic([facility] or [facility]) [facility] [place] [address] [place] [address] Referral ID Status Reason Start Date Expiration Date Visits V isits Requested Authorized [id number] Closed Specialty 11/19/2021 11/19/2022 1 1 Service Requested Reason for Visit Auth/Cert Specialty Diagnoses / [...] Expiration Date Visits Requ ested Visits Authorized [id number] 1 1 Encounter Details Date Type Department Care Team Description 11/17/2021 - Hospital Encounter Cardiac Special Elijah Pena MD [facility] [place] [address] S/P TAVR (transcatheter aortic valve rep lacement) (Primary Dx); 11/19/2021 Care Unit Uli Flores MD [facility] [place] [address] Severe aortic stenosis; [facility] va lve stenosis, etiology of cardiac valve disease unspecified; Hospital LBBB (left bundle [place]) [place] [id number] Social History Tobacco Use Types Packs/Day Years [...] Sign Reading Time Taken Comments Blood Pressure 124/60 11/19/2021 9:54 AM EST Pulse 80 11/19/2021 7:36 AM EST Temperature 36.7 ??C (98.1 ??F) 11/19/2021 7:36 AM EST Respiratory Rate 27 11/19/2021 7:36 AM EST Oxygen Saturation 96% 11/19/2021 7:36 AM EST Inhaled Oxygen Concentration - - Weight 78.8 kg (173 lb 11.6 oz) 11/19/2021 3:41 AM EST Height 160 cm (5' 3) 11/17/2021 8:08 AM EST Body Mass Index 30.77 11/17/2021 8:08 AM EST documented in this encounter Discharge Summaries Charlene Ernst PA - 11/19/2021 9:09 AM EST Images from the original note were not included. Inpatient - Discharge Summary Patient Name: Javier Joe Patient Age: 81 y.o. Birthdate: 1940 Language: Haitian Race: White Ethnicity: Not nor Admit Date: 11/17/2021 Discharge Date: 11/19/2021 Attending Physician: Uli Richardson MD Follow-up Recommendations for Providers: ??? Please continue routine management of cardiovascular risk factors including blood pressure, lipids, glucose, etc. ??? Please note any medication changes. ??? Patient to follow up with PCP, Zoey Lucas MD, or Primary Business Continuity Analyst in ~ 7-10 days. ??? Patient to follow up with Polarity Tester, Dr. Issac Pena with a chest x-ray, EKG, Echo, CBC, and CMP. ?? Rpvq-[id number]-xb interval: After initial 30 day follow-up appointment , all TAVR patients will follow-up again in one year with an echo. Inpatient Provider Contact Information: [facility] Section of Cardiac Surgery [facility] [address] FAX [phone] Discharge Diagnoses (Hospital Problems) Primary Diagnoses: Aortic stenosis, s/p TF TAVR Secondary Diagnoses: Active Hospital Problems Diagnosis ??? Aortic valve stenosis Resolved Hospital Problems No resolved problems to display. Other Diagnoses (Chronic Problems): Active Non-Hospital Problems Diagnosis ??? Aortic stenosis, severe ??? Giant cell arteritis ??? Vision loss of left eye Discharged to: Patient discharged to home Functional and Cognitive Status: stable Discharge Conditions/Prognosis: improved Past Medical History: Diagnosis Date ??? Allergic state ??? Anxiety ??? Arthritis RHEUMATOID ??? Asthma ??? Chronic kidney disease single kidney ??? 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 Giant cell arteritis 10/2015 ??? Hypertension ??? Skin disease Past Surgical History: Procedure Laterality Date ??? CATARACT REMOVAL Right 12/05/2016 CE/IOL OD w/ SK ??? 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 LUNG SURGERY 1983 Left upper lobe- precancer ??? PRO EXTRACAPSULAR CATARACT RMVL INSERTION IO LENS PROSTH CPLX WO ECP Right 12/05/2016 CATARACT EXTRACTION, EXTRACAPSULAR, WITH LENS INSERTION, COMPLEX (WRVU 11.08) performed by Primo Rodríguez MD at [facility] ??? PRO TEMPORAL ARTERY LIGATN OR BX Bilateral 10/25/2015 LIGATION OR BIOPSY, TEMPORAL ARTERY performed by Sukhdev Bhatti MD at [facility] MAIN OR ??? YAG CAPSULOTOMY Right 03/20/2019 SK Prior To Admission Medications Medications Prior to Admission Medication Sig Dispense Refill Last Dose ??? acetaminophen (TYLENOL) 650 mg Tablet Sustained Release Take 1,300 mg by mouth every 8 hours as needed for Pain. Do not exceed 6 tabs in 24 hours 11/17/2021 at Unknown time ??? metoprolol succinate XL (Toprol-XL) 25 mg Tablet Sustained Release 24 hr daily. 11/16/2021 at Unknown time ??? losartan (Cozaar) 25 mg Tablet 2 times daily. 11/16/2021 at Unknown time ??? cholecalciferol, Vitamin D3, 25 mcg (1,000 unit) Capsule 2,000 Units daily. 11/16/2021 at Unknown time ??? predniSONE (DELTASONE) 1 mg Tablet Take 2 mg by mouth daily. 11/17/2021 at Unknown time ??? predniSONE (DELTASONE) 5 mg Tablet Take 5 mg by mouth daily. 11/17/2021 at Unknown time ??? aspirin 81 mg Tablet, Chewable Take 81 mg by mouth daily. 11/16/2021 at Unknown time ??? [DISCONTINUED] amLODIPine (NORVASC) 5 mg Tablet Take 2 tablets by mouth daily. (Patient taking differently: Take 5 mg by mouth daily.) 30 tablet 11 11/17/2021 at Unknown time ??? escitalopram oxalate (LEXAPRO) 10 mg Tablet Take 10 mg by mouth daily. 11/17/2021 at Unknown time ??? CALCIUM CARBONATE/VITAMIN D3 (VITAMIN D-3 ORAL) Take 1,200 mg by mouth daily. 11/16/2021 at Unknown time ??? hydrochlorothiazide (HYDRODIURIL) 25 mg tablet 25 MG = 1 Tablet(s), PO, QAM ??? hydrocortisone 2.5 % cream 1 Appl(s), Top, Twice daily (Patient taking differently: 1 Appl(s), Top, Twice daily, PRN) ??? triamcinolone (KENALOG) 0.1 % ointment Apply topically as needed. (Patient taking differently: Apply topically as needed.) Updated Allergies/ADRs: Allergies Allergen Reactions ??? Red Blood Cells Other (See Comments) Antibodies-Difficult to Crossmatch DO NOT REMOVE Please contact the Blood Bank at [phone] for questions. ??? Beta-Blockers (Beta-Adrenergic Blocking Agts) ??? Doxazosin Mesylate ??? Lisinopril ??? Nickel History of Presentation: 81-year-old woman is seen in consultation for aortic valve therapies, referred by Dr. Yuki Sood. ?? Social history:??She lives in [facility], where she retired along with her 25 years ago.??Her 13 years ago, and she has a son in the area. 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 ??She still enjoys walking, and spending time with family. ??She smoked until age 41 at which time shehad a left upper lobectomy for possible lung CA which ended up being benign. ?? Her medical history is notable for progressive aortic stenosis with low flow/low gradient physiology. ??Medically, her biggest limitation is severe back pain and lower extremity neurogenic claudicationsymptoms for which she is scheduled to undergo evaluation with the back pain clinic. ??She reports not being overly active, although she does use a rolling walker when she has to get around. ??She notes that she has had some exertional shortness of breath, but this has been stable for the last 6 months. ??No chest pain, no dizziness, no syncope, and no presyncope. ?? Other medical history is notable for hypertension for which she is on multiple meds and depression. ??She is on steroids for her neurogenic back pain.? Major Procedures/Operations: 11/17/21: TF TAVR Hospital Course: Severe s/p TF TAVR Javier Joe was admitted to [facility] on 11/17/2021 via the Cardiology Service. She was brought to the medical lab technologist where Drs. Uli Richardson and Issac Pena and their teamsperformed a transfemoral TAVR. She tolerated the procedure and was brought to the Cardiac Cath Recovery Unit and then to the Step Down Unit. Routine postoperative and home medications were started. She developed a new left bundle branch block and 1'AVB immediately postop. She did not have any bradycardic events or pauses. EP was consulted who recommended monitoring. By POD2, her LBBB and 1'AVB resolved. No further intervention or monitoring was required thereafter per EP. Metoprolol was held and can be reassessed as an outpatient. Her groins were soft without hematoma. Her diet was advanced and tolerated. She was seen by Physical Therapy and Cardiac Rehabilitation. Her discharge plan at this time is to home. The remainder of the her hospital course was uneventful and by postoperative day #2 she had met all criteria for discharge. She had walked 5 minutes and gone up and down stairs. Anticoagulation Plan: ASA 81mg Vital Signs at Discharge: Last set of vitals: BP 130/69 (BP Location (NBP): Left arm, Patient Position: Lying) Pulse 84 Temp 36.4 ??C (97.5 ??F) (Oral) Resp 19 Ht 160 cm (5' 3) Wt 78.8 kg (173 lb 11.6 oz) LMP (LMP Unknown) SpO2 94% BMI 30.77 kg/m?? Patient Vitals for the past 168 hrs: Weight 11/19/21 0341 78.8 kg (173 lb 11.6 oz) 11/18/21 0535 78.5 kg (173 lb 1 oz) 11/17/21 0808 78 kg (172 lb) Current weight: 78.8 kg Admit/Preop weight: 78 kg Pertinent physical exam findings prior to discharge: General: no acute distress, in bed Pulm: non-labored, CTA bilat Cardiac: regular rate and rhythm, without murmur/gallop/rub Vascular: warm, no LE edema Abd: non-tender, non-distended, active bowel sounds Neuro: A&Ox4, no focal deficits Integ: groin sites clean, dry without hematoma Important Studies and Lab Data: Lab Results Component Value Date WBC 9.3 11/18/2021 RBC 3.58 (L) 11/18/2021 HGB 11.1 (L) 11/18/2021 HCT 34.1 (L) 11/18/2021 PLATELET 162 11/18/2021 No results for input(s): INR in the last 168 hours. Lab Results Component Value Date NA 141 11/18/2021 K 3.6 11/19/2021 CL 105 11/18/2021 CO2 25 11/18/2021 BUN 23 (H) 11/18/2021 CREATININE 1.32 (H) 11/18/2021 Pending Studies and Lab Data: CBC, CMP, CXR, TTE, EKG on follow up Immunizations Given this Hospitalization: Immunization History Administered Date(s) Administered ??? Influenza PF, Split (High Dose) 09/05/2016 ??? Influenza Vaccine w/Preservative, Split 09/07/2015 ??? Influenza Vaccine, Whole 10/09/2006 ??? Moderna Covid-19 Vaccine 11/10/2020, 12/09/2020, 08/16/2021 Smoking Status at Discharge: Social History Tobacco Use Smoking Status Former Smoker ??? Quit date: 10/20/1983 ??? Years since quittin.1 Smokeless Tobacco Never Used Discharge Medications: Your Medications New Medications Dose Details acetaminophen 500 mg Tab Commonly known as: Tylenol Take 2 tablets by mouth every 6 hours as needed for Pain. Replaces: acetaminophen 650 mg Tbsr 1,000 mg Quantity: 30 tablet Refills: 1 amoxicillin 500 mg Cap Commonly known as: Amoxil Take 4 capsules by mouth as needed (dental procedures). 2,000 mg Quantity: 4 capsule Refills: 0 Continued medications with new dosing Dose Details hydrocortisone 2.5 % Crea 1 Appl(s), Top, Twice daily What changed: ?? how much to take ?? how to take this ?? when to take this ?? additional instructions Refills: 0 Continued medications, unchanged Dose Details amLODIPine 5 mg Tab Commonly known as: Norvasc Take 1 tablet by mouth daily. 5 mg Refills: 0 aspirin 81 mg Chew Take 81 mg by mouth daily. 81 mg Refills: 0 cholecalciferol (Vitamin D3) 25 mcg (1,000 unit) Cap 2,000 Units daily. 2,000 Units Refills: 0 escitalopram 10 mg Tab Commonly known as: Lexapro Take 10 mg by mouth daily. 10 mg Refills: 0 losartan 25 mg Tab Commonly known as: Cozaar 2 times daily. Refills: 0 * predniSONE 5 mg Tab Commonly known as: Deltasone Take 5 mg by mouth daily. 5 mg Refills: 0 * predniSONE 1 mg Tab Commonly known as: Deltasone Take 2 mg by mouth daily. 2 mg Refills: 0 triamcinolone 0.1 % Oint Commonly known as: Kenalog Apply topically as needed. Refills: 0 VITAMIN D-3 ORAL Take 1,200 mg by mouth daily. 1,200 mg Refills: 0 * This list has 2 medication(s) that are the same as other medications prescribed for you. Read thedirections carefully, and ask your doctor or other care provider to review them with you. STOPPED Medications acetaminophen 650 mg Tbsr Commonly known as: TYLENOL Replaced by: acetaminophen 500 mg Tab hydroCHLOROthiazide 25 mg Tab Commonly known as: Hydrodiuril metoprolol succinate XL 25 mg Tablet sr Commonly known as: Toprol-XL Instructions Given to Patient at Discharge: TAVR Discharge Instructions: Call your doctor if: You have a fever of greater than 101 degrees, shaking chills, if you develop redness or drainage from your procedure sites, or if you have questions. Please call your Polarity Tester's office if you have any discharge or drainage from your procedural sites. Your Polarity Tester, Dr. Issac Pena and/or the Roving Marker may be reached at . You may also contact MAGALYS Anderson RN, TAVR Intake Coordinator at [phone] with any questions or issues. Antibiotic prophylaxis: You will need to take antibiotics prior to many invasive tests and treatments, such as dental cleaning, which should be done every 6 months. Your primary care physician or your dentist can prescribe this medication. A one time prescription has been ordered for you today. Any future refills should go through your PCP or Dentist. Please refer to the card with the [place] [employer] Guidelines for more information. You have been provided with a copy of this card. Please refer to the [place] [employer] Guidelines for more information. Good dental care is important for your overall health. We recommend waiting ~3 months before returning to your dentist except in cases of emergency. Activity level: Walk three times a day. You should continue to increase your walks by 1-2 minutes each day. It is expected that you will be walking 20-30 minutes twice a day within 3-4 weeks after discharge to home. Rest between activities and after meals. Use common sense, don't exhaust yourself. Home activities: You may resume your usual home activities such as housekeeping and chores; allowingtime to rest as needed. Sexual activity: You may engage in sexual activity when you feel ready. Stairs: There are no restrictions on stair climbing. Use common sense. Don't exhaust yourself. Activities outside the home: After the first week home you may go out to dinner, visit friends, go to a movie, go to yazidism, etc. Heavy activities: No hunting, skiing, jogging, snow shoveling, snowmobiling, lawn mowing, swimming, golf or tennis for 1 week after your procedure. Smoking: It is very important that you not smoke after your procedure. Smoking cessation education was provided as appropriate. If you need further assistance with this please call and you will be referred to a smoking cessation specialist. Medications: Take only those medications listed on your discharge information. Keep your pain under control so you can be active, do your coughing and breathing exercises and sleep. Contact us if the pain medication isn't working for you. Do not take any herbal preparations until after your follow up a ppointment. Diet: You should follow a regular diet until your appetite returns to normal. At that point in time you should resume a low fat, low cholesterol, [place] [employer] Diet. Driving: No driving for 3 days. Shower/Bath: You may shower daily. No baths, soaking, or swimming for the first week. Wound care: Please remove your dressings 48 hours after your procedure. Wash the sites daily with soap and rinse well, pat dry. Assess for any signs of infection such as increased redness, pain, warmthor drainage. Please call your branch operations coordinator's office if you have any discharge or drainage from your procedural sites. If there is a lot of swelling, apply beatris wraps during the day and remove at bedtime. Elevate your legs when you are sitting. Home oxygen therapy: N/A Follow up appointments: ??? Please schedule a follow-up appointment with your PCP, Zoey Lucas MD, or Primary Business Continuity Analyst in ~ 7-10 days. ??? You have a follow-up appointment with your Polarity Tester, Dr. Issac Pena, with a chest x-ray, EKG, Echo, and labs prior to your appointment. ?? Fgch-Mrbqzs-py interval: After initial 30 day follow-up appointment , all TAVR patients will follow-up again in one year with an echo. Discharge References/Attachments None Signed: Charlene Ernst PA-C [facility] Section of Cardiac Surgery Date: 11/19/2021 CC: MD Indigo Martinez, Yuki Cuenca MD [address] [place] [address] documented in this encounter Discharge Instructions Patient InstructionsCharlene Ernst PA - 11/19/2021 9:04 AM EST Instructions Given to Patient at Discharge: TAVR Discharge Instructions: Call your doctor if: You have a fever of greater than 101 degrees, shaking chills, if you develop redness or drainage from your procedure sites, or if you have questions. Please call your Polarity Tester's office if you have any discharge or drainage from your procedural sites. Your Polarity Tester, Dr. Issac Pena and/or the Roving Marker may be reached at . You may also contact MAGALYS Anderson RN, TAVR Intake Coordinator at [phone] with any questions or issues. Antibiotic prophylaxis: You will need to take antibiotics prior to many invasive tests and treatments, such as dental cleaning, which should be done every 6 months. Your primary care physician or your dentist can prescribe this medication. A one time prescription has been ordered for you today. Any future refills should go through your PCP or Dentist. Please refer to the card with the [place] [employer] Guidelines for more information. You have been provided with a copy of this card. Please refer to the [place] [employer] Guidelines for more information. Good dental care is important for your overall health. We recommend waiting ~3 months before returning to your dentist except in cases of emergency. Activity level: Walk three times a day. You should continue to increase your walks by 1-2 minutes each day. It is expected that you will be walking 20-30 minutes twice a day within 3-4 weeks after discharge to home. Rest between activities and after meals. Use common sense, don't exhaust yourself. Home activities: You may resume your usual home activities such as housekeeping and chores; allowingtime to rest as needed. Sexual activity: You may engage in sexual activity when you feel ready. Stairs: There are no restrictions on stair climbing. Use common sense. Don't exhaust yourself. Activities outside the home: After the first week home you may go out to dinner, visit friends, go to a movie, go to yazidism, etc. Heavy activities: No hunting, skiing, jogging, snow shoveling, snowmobiling, lawn mowing, swimming, golf or tennis for 1 week after your procedure. Smoking: It is very important that you not smoke after your procedure. Smoking cessation education was provided as appropriate. If you need further assistance with this please call and you will be referred to a smoking cessation specialist. Medications: Take only those medications listed on your discharge information. Keep your pain under control so you can be active, do your coughing and breathing exercises and sleep. Contact us if the pain medication isn't working for you. Do not take any herbal preparations until after your follow up a ppointment. Diet: You should follow a regular diet until your appetite returns to normal. At that point in time you should resume a low fat, low cholesterol, [place] [employer] Diet. Driving: No driving for 3 days. Shower/Bath: You may shower daily. No baths, soaking, or swimming for the first week. Wound care: Please remove your dressings 48 hours after your procedure. Wash the sites daily with soap and rinse well, pat dry. Assess for any signs of infection such as increased redness, pain, warmthor drainage. Please call your branch operations coordinator's office if you have any discharge or drainage from your procedural sites. If there is a lot of swelling, apply beatris wraps during the day and remove at bedtime. Elevate your legs when you are sitting. Home oxygen therapy: N/A Follow up appointments: Please schedule a follow-up appointment with your PCP, Zoey Lucas MD, or Primary Business Continuity Analyst in ~ 7-10 days. You have a follow-up appointment with your Polarity Tester, Dr. Issac Pena, with a chest x-ray, EKG, Echo, and labs prior to your appointment. Fczp-Obakwb-bu interval: After initial 30 day follow-up appointment , all TAVR patients will follow-up again in one year with an echo. documented in this encounter Medications at Time of Discharge Medication Sig Dispensed Refills Start Date End Date losartan (Cozaar) 25 mg 50 mg 2 times daily. 0 Tablet cholecalciferol, Vitamin 2,000 Units daily. 0 D3, 25 mcg (1,000 unit) Capsule predniSONE (DELTASONE) 1 Take 2 mg by mouth 0 mg Tablet daily. Takes with 5 mg = 7 mg Daily* predniSONE (DELTASONE) 5 Take 5 mg by mouth 0 mg Tablet daily. aspirin 81 mg Tablet, Take 81 mg by mouth 0 Chewable daily. escitalopram oxalate Take 10 mg by mouth 0 (LEXAPRO) 10 mg Tablet daily. CALCIUM CARBONATE/VITAMIN Take 1,200 mg by 0 D3 (VITAMIN D-3 ORAL) mouth daily. hydrocortisone 2.5 % 1 Appl(s), Top, 0 12/26/2010 cream Twice daily triamcinolone (KENALOG) Apply topically as 0 12/12 0.1 % ointment needed. acetaminophen (Tylenol) Take 2 tablets by 30 tablet 1 11/19 500 mg Tablet mouth every 6 hours as needed for Pain. amLODIPine (Norvasc) 5 mg Take 1 tablet by 0 /03/2022 Tablet mouth daily. amoxicillin (Amoxil) 500 Take 4 capsules by 4 capsule 0 03/202201/19/2022 mg Capsule mouth as needed (dental procedures). documented as of this encounter Progress Notes Jaclyn Kumar RN - 11/19/2021 11:38 AM EST A/Ox4. SR on tele, see saved strips. Non sustained vtach on tele, pt asymptomatic, provider aware. Denies chest pain or SOB. Spontaneous voiding in urinal. EKG obtained. Discharge paperwork reviewed with patient. Patient educated about home medications. Telemetry discontinued. IV removed. Pt discharged home with son. Alana Araiza PT - 11/19/2021 10:05 AM EST Physical Therapy Evaluation Patient profile: Javier Joe is a 81 y.o. right handed female admitted on 11/17/[address] Uli Richardson MD for aortic valve stenosis. Patient with the following active problems: Past Medical History: Diagnosis Date ??? Allergic state ??? Anxiety ??? Arthritis RHEUMATOID ??? Asthma ??? Chronic kidney disease single kidney ??? 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 Giant cell arteritis 10/2015 ??? Hypertension ??? Skin disease Past Surgical History: Procedure Laterality Date ??? CATARACT REMOVAL Right 12/05/2016 CE/IOL OD w/ SK ??? 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 LUNG SURGERY 1984 Left upper lobe- precancer ??? PRO EXTRACAPSULAR CATARACT RMVL INSERTION IO LENS PROSTH CPLX WO ECP Right 12/05/2016 CATARACT EXTRACTION, EXTRACAPSULAR, WITH LENS INSERTION, COMPLEX (WRVU 11.08) performed by Primo Rodríguez MD at [facility] ??? PRO TEMPORAL ARTERY LIGATN OR BX Bilateral 10/25/2015 LIGATION OR BIOPSY, TEMPORAL ARTERY performed by Sukhdev Bhatti MD at [facility] MAIN OR ??? YAG CAPSULOTOMY Right 03/20/2019 SK Active Non-Hospital Problems Diagnosis ??? Aortic stenosis, severe ??? Giant cell arteritis ??? Vision loss of left eye Social History: Lives alone in single level home in [place], [place] Home set-up: Single level with 2 MICKEY Bathroom Set-up: Walk in shower with bench and grab bars Stairs: 2 MICKEY Baseline Mobility: Modified independent with rollator Equipment at home: rollator, tub bench Fall history: relays none Precautions/Special Considerations: Telemetry Lines: PIV, telemetry, oxygen tubing Activity Orders: AAT Diet: Cardiac diet Mobility and Positioning Recommendations: ?? Pt. to utilize fww and supervision for ambulation and transfers with nursing. ?? Please encourage up to chair for meal times as able. ?? Pt encouraged to ambulate frequently with staff, getting into the bathroom for toileting and walking out in the danielle >/= 3 times daily as able. Subjective: ???I feel like I am doing ok, I had home health PT/OT come after I had sepsis and they were helpful?? Objective: Pt seen for evaluation today. Pain: Denies pain Vital Signs: At Rest With Activity SpO2 (%) 96% 96% HR 82bpm 90-101 bpm Mental Status: alert, oriented to person, place, and time Vision: WFL Skin: Intact that was visualized Musculoskeletal: ROM: Bilateral UE/LE WFL Strength: Bialteral UE/LE WFL Sensation: Bilateral UE/LE WFL Bed Mobility: Supine to Sit: Independent Sit to Supine: independent Transfers: Sit to Stand: independent Stand to Sit: independent Bed to Chair: independent Gait: Distance: 150 ft Device used: fww Level of assist: supervision Gait mechanics: WFL Stairs: n/a Balance: Sitting Static: independent Sitting Dynamic: independent Standing Static: independent Standing Dynamic / Gait: independent Education: patient has been educated on Role of therapy and Discharge planning and demonstrate understanding. Patient status, treatment, and mobility recommendations discussed with nursing. Assessment: Javier Joe was seen today for physical therapy evaluation. Javier is a very pleasant 81 year old woman whom is s/p TAVR whom is mobilizing independently and without concerns. She should be able to discharge home with no needs once medically ready. Discharge Recommendations: Based on the current findings, Anticipated Discharge Disposition (PT): home when medically ready forhospital discharge. Consult Recommendations: No other consults recommended at this time. Equipment needs: Anticipated Equipment Needs at Discharge (PT): (None) Plan: Therapy Frequency (PT): (once) for therapy including patient/family education. Patient/family understand and agree with plan as stated above. 2017 PT Evaluation Code Rationale: ?? Diagnosis & Pertinent Co-Morbidities, personal factors, and present illness affecting Plan ofCare: (see above); Additional personal factors or co- morbidities that impact plan: ?? Total # of Factors: 0 1-2 3+ x ?? Examination of body system impairments, functional limitations and behaviors, and/or participation restrictions. Addressing 1-2 elements x Addressing 3 + elements Addressing 4 + elements ?? Clinical presentation: See assessment above. Stable/Uncomplicated Evolving/Fluctuating Symptoms Unstable/Unpredictable x ?? Clinical decision making of low complexity based on pt's functional performance as outlined in this evaluation. Time IN / OUT: 915/940 Total Minutes, Physical Therapy: 25 (1 PT EVAL LOW COMPLEXITY) Alana Araiza, PT Pager: [phone] Physical Therapy Inpatient Rehabilitation Department Corrine Soria MD - 11/19/2021 8:38 AM EST Images from the original note were not included. Brief EP Progress Note EP was consulted in this post-TAVR patient for new LBBB which persisted > 24 hours post TAVR. This morning's ECG ~36 hours post TAVR demonstrates resolution of LBBB and stable SD interval. Based on these findings along with no evidence of heart block on telemetry, EP has no further recommendations for monitoring. 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 female with a history of aortic stenosis, spinal stenosis, HTN, NOAM lobectomy, nephrectomy, GCA on prednisone, and RA, now status post TF TAVR performed 11/17/21 Interval: New LBBB after procedure, stable overnight, no heart block or pauses Subjective: Pain controlled, denies nausea, vomiting, chest pain or shortness of breath. O: Temp: [36.6 ??C (97.9 ??F)-38 ??C (100.4 ??F)] Heart Rate: [59-101] Resp: [13-36] BP: (95-137)/(46-105) SpO2: [90 %-99 %] Heart Rate from SpO2: [58 bpm-101 bpm] I/O last 3 completed shifts: In: 850 [P.O.:450; I.V.:400] Out: 750 [Urine:700; Blood:50] Physical Exam: General: NAD, resting comfortably CVS: Regular Pulm: Normal work of breathing on room air GI: Abdomen soft, non tender, non distended Vasc: RLE: No edema. Skin warm and pink. No hematoma. LLE: No edema. Skin warm and pink. No hematoma. Neuro: CN 2-12 grossly intact, nonfocal, moving all extremities. TLD: PIVs Recent Labs 11/18/21 0414 11/17/21 1556 WBC 9.3 -- HGB 11.1* 12.7 HCT 34.1* -- PLATELET 162 -- Recent Labs 11/18/21 0414 11/17/21 1556 NA 141 -- K 3.4* 3.9 CL 105 -- CO2 25 -- BUN 23* -- CREATININE 1.32* -- CALCIUM 8.4* -- New Imaging ?? None new Assessment: Javier Joe is a 81 y.o. female with a history of aortic stenosis, spinal stenosis, HTN, NOAM lobectomy, nephrectomy, GCA on prednisone, and RA, now POD1 status post TF TAVR. New LBBB after TAVR. Stable on ECG this morning. EP consult -> monitor and repeat ECG tomorrow. Otherwise doing well. Plan: Neuro: PRN tylenol CV: As above Pulm: on Room air, encourage IS use FEN/GI: ADAT Renal: Voiding Heme: Aspirin Endo: prednisone for history of GCA ID: Periop abx complete Prophylaxis: SCDs Dispo: CSCU status, full code Charlene Ernst PA - 11/18/2021 10:52 AM EST Cardiac Surgery Progress Note Javier Joe is a 81 y.o. female with who is 1 Day Post-Op TF TAVR . PMH of , HTN, UDAY lobectomy, remote nephrectomy, giant cell arteritis, RA, spinal stenosis. 24h Events: New LBBB and 1'AVB postop 1'AVB resolved by morning, Sandeep 182 No bradycardic event 2/10 chest pressure overnight, resolved S: Patient feeling fair, denies chest pain this morning, denies SOB, nausea. Concerned about her rhythm. O: Temp: [36.6 ??C (97.9 ??F)-38 ??C (100.4 ??F)] Heart Rate: [59-101] Resp: [13-36] BP: (94-137)/(45-105) SpO2: [90 %-99 %] Heart Rate from SpO2: [58 bpm-101 bpm] 11/17 0701 - 11/18 0700 In: 850 [P.O.:450; I.V.:400] Out: 750 [Urine:700] Admit weight: 78.02 kg Current weight: Weight: 78.5 kg (173 lb 1 oz) Physical Exam: General: no acute distress, in bed Pulm: non-labored, CTA bilat Cardiac: regular rate and rhythm, without murmur/gallop/rub Vascular: warm, no LE edema Abd: non-tender, non-distended, active bowel sounds Neuro: A&Ox4, no focal deficits Integ: groin sites clean, dry without hematoma Tubes/Lines/Drains: PIV Assessment/Plan: 81 y.o. female 1 Day Post-Op TF TAVR. Postop new 1'AVB and LBBB. EP consulted Monitor overnight, repeat EKG in am Hold all AV alma blocking agents Home norvasc resumed Home prednisone cont for RA/Giant cell Monitor for further chest pain Neuro: APAP q6hrs, home lexipro CV: EP following. Norvasc 5. Holding home cozaar, HCTZ, and metoprolol Pulm: RA, IS/OOB GI: Cardiac diet, RBO : voiding Renal: Cr stable, replace lytes PRN Heme: ASA 81 Rheum: Home prednisone ID: periop abx complete Endo: No issues Dispo: CSCU, full code Discussed with attending surgeon on rounds this morning. JEFFERSON Lomeli 11/18/2021 Between the hours of 1800 - 0600 and on the weekends please page [phone]. Christian Fisher RN - 11/18/2021 2:37 AM EST OUTCOME EVALUATION NOTE: OUTCOME SUMMARY: A&Ox4. Patient continues with chest pressure; per MD this was expected and will reassess in AM. Patient also c/o headache; tylenol given x2. Patient had episode of emesis around 21:30. Per Patient,this has happened previously with anesthesia. ECG changes noted at 00:45 (ST depression noted in lead 2, HR slowly increasing since 18:00); team notified. Oral temp at 04:47 was 38.0, recheck at 05:35 was 37.8. PLAN MOVING FORWARD: Cardiac monitoring s/p TAVR INDIVIDUALIZED FALL PREVENTION INTERVENTIONS: Patient-specific fall risk factors per assessment: [current deficits]: Unfamiliar environment, telemetry & SpO2 wires. Assistance [level of assistance required for transfers and ambulation]: SBA Supervision [direct monitoring required during toileting and ADLs]: SBA Surveillance [continuous indirect monitoring]: Telemetry, SpO2, purposeful rounding. Patient-specific fall prevention interventions for sensory deficits provided, if applicable: [X] YesBed in low position, call lima in reach, non-skid socks applied, purposeful rounding. CPG GOAL OUTCOME EVALUATION: Ongoing Eim Moreau RN - 11/17/2021 4:49 PM EST OUTCOME EVALUATION NOTE: OUTCOME SUMMARY: [facility]. Pt is A+Ox4, follows commands x4. VSS and WNL for pt. In NSR with 1st degree AV block and L BBB. Pt reports chest pressure with MD in the room. Denies pain. MD states this is normal finding s/p TAVR and will re-asses in the AM. RN provided education to patient about notifying if symptoms worsen, or are accompanied by pain, N/V, or SOB. No further interventions ordered at this time. Stable on RA. Voids spontaneously. Awaiting diet orders, but able to swallow safely. Lines remain patent and benign, flushed per protocol. Bilateral groin sites intact with no hematoma. Son at bedside. RN will continue to monitor. PLAN MOVING FORWARD: Q2 neurovascular checks until 1800 then q4. documented in this encounter H&P Notes Issac Pena MD - 11/17/2021 7:41 AM EST Images from the original note were not included. REFERRING PROVIDER: Yuki Sood ?? CHIEF COMPLAINT: Aortic stenosis ?? PROBLEM LIST: ?? 1. Aortic stenosis A. Aortic valve area 0.91 cm??, peak/mean gradient 52/27 mmHg, stroke-volume index 35, EF preserved 2. Lumbar spinal stenosis with neurogenic claudication A. Limiting back pain, ambulates with rolling walker 3. Essential hypertension 4. S/p left upper lobectomy for tumor (benign) 5. Previous tobacco abuse 6. S/p nephrectomy as a small child for developmental delay ? HISTORY OF PRESENT ILLNESS: 81-year-old woman is seen in consultation for aortic valve therapies, referred by Dr. Yuki Sodo. ?? Social history: She lives in [facility], where she retired along with her 25 years ago. Her 13 years ago, and she has a son in the area. 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 She still enjoys walking, and spending time with family. She smoked until age 41 at which time she had a leftupper lobectomy for possible lung CA which ended up being benign. ?? Her medical history is notable for progressive aortic stenosis with low flow/low gradient physiology. Medically, her biggest limitation is severe back pain and lower extremity neurogenic claudication symptoms for which she is scheduled to undergo evaluation with the back pain clinic. She reports not being overly active, although she does use a rolling walker when she has to get around. She notes thatshe has had some exertional shortness of breath, but this has been stable for the last 6 months. No chest pain, no dizziness, no syncope, and no presyncope. ?? Other medical history is notable for hypertension for which she is on multiple meds and depression. She is on steroids for her neurogenic back pain. ?? PAST MEDICAL HISTORY (Problem List) Patient Active Problem List ?? Diagnosis ??? Giant cell arteritis ??? Vision loss of left eye ?? SOCIAL HISTORY: Reviewed and updated as appropriate in the medical record. ?? FAMILY HISTORY: Reviewed and updated as appropriate in the medical record. ?? Review of Systems: ?? No flowsheet data found. ?? As noted in the the HPI; all others negative ? MEDICATIONS: ?? Calcium carbonate/vitamin D Celexa 10 mg daily Hydrochlorothiazide 25 mg daily Toprol XL 25 mg daily Losartan 25 mg daily Aspirin 81 mg daily Amlodipine 5 mg daily Prednisone (for spinal stenosis) ?? ALLERGIES: Reviewed and updated as appropriate in the medical record. ?? PHYSICAL EXAMINATION: ?? BP 149/74 (BP Location (NBP): Left arm) Pulse 84 Temp 36.3 ??C (97.3 ??F) (Temporal) LMP (LMP Unknown) SpO2 99% ?? Exam Details: ?? Pleasant patient who is in no distress. Neck is supple with transmitted aortic sounds bilaterally. Lung ochoa are clear to auscultation. Cardiac exam reveals a late peaking systolic ejection murmur heard across the precordium with radiation to the neck. Abdomen is soft and nontender. Extremities showtrace edema with 1+ radial pulses and normal Manan's test. Neurologically, the patient is awake, alert, and appropriate with a grossly nonfocal exam. ? Lab Results Component Value Date ?? WBC 9.3 08/24/2021 ?? HGB 11.7 08/24/2021 ?? HCT 35.9 08/24/2021 ?? MCV 93.2 08/24/2021 ?? PLATELET 288 08/24/2021 Lab Results Component Value Date ?? NA 138 08/24/2021 ?? K 4.3 08/24/2021 ?? CL 100 08/24/2021 ?? CO2 26 08/24/2021 ?? BUN 25 (H) 08/24/2021 ?? CREATININE 1.17 08/24/2021 ?? GLUCOSE 133 08/24/2021 ?? CALCIUM 10.4 08/24/2021 ?? ESTGFR 44 (L) 08/24/2021 ?? Lipid Panel Lab Results Component Value Date ?? CHLPL 277 01/22/2018 ? ASSESSMENT: ?? 1. Aortic stenosis 2. Lumbar spinal stenosis with neurogenic claudication 3. Hypertension 4. Status post left upper lobectomy for benign tumor 5. Status post remote nephrectomy ?? RECOMMENDATIONS: The risks of a transcatheter aortic valve replacement (TAVR) were discussed in detail with the patient and their family who were available at the bedside. These include but are not limited to vascular injury, bleeding, the need for blood transfusion, stroke, valve malpositioning and leak, need for emergent surgery for vascular or cardiac issues, and . We also discussed the inherent nature of howa TAVR valve is secured and the concomitant risk for heart block including left bundle branch block and complete heart block requiring permanent pacemaker placement. After all of these risks were reviewed, the patient and their family members had a chance to ask questions. After the questions were answered to their satisfaction, and informed consent document was provided and signed. documented in this encounter Miscellaneous Notes Brief Op Note - Uli Richardson MD - 11/19/2021 11:38 AM EST Brief Operative Note Patient Name: Javier Joe : [id number] MR#: [id number] Case Date: 11/17/2021 Surgeon: Surgeon(s) and Role: Panel 1: * Issac Pena MD - Primary * Anam Moseley PA - Physician Superintendent Tests Panel 2: * Uli Richardson MD - Primary Panel 3: * Rigoberto Aggarwal MD - Primary Preoperative diagnosis: Severe aortic stenosis [I35.0] TAVR Postoperative diagnosis: * No post-op diagnosis entered * Procedure(s) (LRB): CARDIAC CATHETERIZATION (N/A) COMBINED RIGHT & LEFT HEART CATH,INC INJ FOR L VENTRICULOGRAPHY (N/A) @TRANSCATHETER AORTIC VALVE REPLACEMENT (TAVR), PERCUTANEOUS FEMORAL (WRVU 25.13) (N/A) TRANSESOPHAGEAL ECHO DURING CATH/EP PROCEDURE (N/A) Anesthesia: MAC Findings: Complications: None Intake: Intraprocedure Crystalloid Total Intake Lactated Ringers 400.00 mL Total Intake 400 mL Output Blood Loss 50 mL Total Output 50 mL Net Net Volume 350 mL Transfusion No data found in the last 1 encounters. Output: Estimated Blood Loss: 50 mL Urine Output:: (no urine output recorded) Other Output: (no other output recorded) Drains: None Specimens removed during surgery: None Disposition: aroused from sedation, and taken to the recovery room in a stable condition Condition: doing well without problems Attestation: Case Date: 11/17/2021 I performed this procedure without the involvement of a resident. (Please see the Surgical Encounter Summary for any Implant and Specimen details pertinent to this patient.) Surgical Infection Prevention Bundle Used? N/A Plan of Care - Jaclyn Kumar RN - 11/18/2021 6:13 PM EST OUTCOME EVALUATION NOTE: OUTCOME SUMMARY: A/Ox4. SR on tele, see saved strips. Denies chest pain or SOB. Spontaneous voiding. Ambulated in danielle with RN. Son at bedside in afternoon. No reports of nausea. B/L groin site dressings removed, sitesbenign. PLAN MOVING FORWARD: Q4H neuro checks Continue to monitor heart rhythm INDIVIDUALIZED FALL PREVENTION INTERVENTIONS: Patient-specific fall risk factors per assessment: [current deficits]: Unfamiliar environment Assistance [level of assistance required for transfers and ambulation]: Standby with walker Supervision [direct monitoring required during toileting and ADLs]: Standby Surveillance [continuous indirect monitoring]: Telemetry, continuous pulse oxymetry, purposeful rounding, call lima Patient-specific fall prevention interventions for sensory deficits provided, if applicable: n/a CPG GOAL OUTCOME EVALUATION: Ongoing Consult Note - Corrine Soria MD - 11/18/2021 10:52 AM EST Cardiac Electrophysiology Consult Note Date of Consultation: 11/18/2021 Admit Date: 11/17/2021 Place of Service: Inpatient Unit Responsible Attending: Corrine Soria MD Reason for Consult: We are seeing Javier Joe at the request of Dr. Post for the evaluationof post-operative LBBB. I have reviewed the available records, interviewed and examined the patient. Active Problem List: Patient Active Problem List Diagnosis ??? Aortic valve stenosis ??? Aortic stenosis, severe ??? Giant cell arteritis ??? Vision loss of left eye History of Present Illness: Javier Joe is a 81 y.o. female with a history of giant cell arteritis and RA, on chronic steroids, spinal stenosis, HTN, solitary kidney s/p nephrectomy as a child, s/p left upper lobectomy for possible lung CA which ended up being benign, progressive aortic stenosis with low-flow, low-gradient physiology, who presented to [facility] on 11/17/2021 for elective transcatheter aortic valve replacement (TAVR). Immediately post-operatively, she was noted to have a new left bundle branch block (QRS increased to134 ms from around 78 ms in August 2021) and first- degree AV block (SD interval increased to 210 ms from 180 ms). She did not have any noted high-grade AV block, marked bradycardia, or pauses. She did not require temporary pacing. She denied history of near-syncope or syncope. She has never been recommended pacemaker in the past. This morning (POD#1), she had EKG showing persistent LBBB without significant change from previous EKG (certainly not worse than day earlier) and improved SD interval to 182 ms which is around baseline. She continues to remain hemodynamically stable without complaints. Last echo, a TTE on 11/17/2021, showed hyperdynamic LVEF 75% without segmental wall motion abnormalities, bioprosthetic aortic valve with trivial perivalvular leak but otherwise low valvular gradients, mild tricuspid regurgitation, and no other hemodynamically significant valve disease. Review of Systems: Constitutional: - fatigue, - fever, - chills Respiratory: - shortness of breath, - cough, - apnea Cardiovascular: - chest pain, - palpitations, - unusual rates Gastrointestinal: - nausea, - vomiting, - abdominal pain Neurological: - lightheadedness, - dizziness, - syncope Psychiatric: - anxious PMH: Past Medical History: Diagnosis Date ??? Allergic state ??? Anxiety ??? Arthritis RHEUMATOID ??? Asthma ??? Chronic kidney disease single kidney ??? 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 Giant cell arteritis 10/2015 ??? Hypertension ??? Skin disease Pertinent Medications: Current Facility-Administered Medications Ordered in [facility] Medication Dose Route Frequency Provider Last Rate Last Admin ??? ondansetron (pf) (Zofran) (2 mg/mL) injection 4 mg 4 mg Intravenous Q8H PRN Jourdan Wagner PA ??? aspirin chewable tablet 81 mg 81 mg Oral Daily Arya Sinclair PA 81 mg at 11/18/21818 ??? escitalopram (Lexapro) tablet 10 mg 10 mg Oral Daily Arya Sinclair PA 10 mg at 11/18/21818 ??? predniSONE (Deltasone) tablet 2 mg 2 mg Oral Daily Arya Sinclair PA 2 mg at 11/18/21821 ??? predniSONE (Deltasone) tablet 5 mg 5 mg Oral Daily Arya Sinclair PA 5 mg at 11/18/21821 ??? sodium chloride 0.9 % (flush) (BD PosiFlush Normal Saline 0.9) flush 5 mL 5 mL Intravenous BID Arya Sinclair PA 5 mL at 11/18/21 0824 ??? senna-docusate (Pericolace) 8.6-50 mg per tablet 2 tablet 2 tablet Oral Daily Arya Sinclair PA ??? [START ON 11/19/2021] magnesium hydroxide (Milk of Magnesia) (240 mg/mL) oral liquid 10 mL 10 mL Oral Daily Arya Sinclair PA ??? [START ON 11/20/2021] bisacodyL (Dulcolax) suppository 10 mg 10 mg Rectal Daily PRN Arya Sinclair PA ??? acetaminophen (Tylenol) tablet 1,000 mg 1,000 mg Oral Q6H PRN Arya Sinclair PA 1,000 mg at 11/18/21 0545 No current Epic-ordered outpatient medications on file. Family History: Family History Problem Relation Age of Onset ??? Glaucoma Neg Hx ??? Macular Degeneration Neg Hx ??? Retinal Detachment Neg Hx Social History: Social History Socioeconomic History ??? Marital status: Spouse name: Not on file ??? Number of children: Not on file ??? Years of education: Not on file ??? Highest education level: Not on file Occupational History ??? Occupation: retired from [employer] Tobacco Use ??? Smoking status: Former Smoker Quit date: 10/20/1983 Years since quittin.1 ??? Smokeless tobacco: Never Used Substance and Sexual Activity ??? Alcohol use: [...] on file Housing Stability: Not on file Physical Exam: Vital signs: Vitals: 11/18/21 0037 11/18/21 0447 11/18/21 0535 11/18/21 0806 BP: 137/61 125/61 122/51 BP Location (NBP): Left arm Left arm Left arm Patient Position: Lying Lying Lying Pulse: 98 (!) 101 99 83 Resp: 30 (!) 36 28 19 Temp: 36.6 ??C (97.9 ??F) (!) 38 ??C (100.4 ??F) 37.8 ??C (100 ??F) 36.6 ??C (97.9 ??F) TempSrc: Oral Oral Oral Oral SpO2: 93% 93% 96% 95% Weight: 78.5 kg (173 lb 1 oz) Height: General- No acute distress, laying comfortably in bed HEENT- Head atraumatic, normocephalic Skin- warm and dry Neck- No JVD noted Cardiovascular- S1/S2 regular rate and rhythm. No murmur, rub or gallop Lungs- Clear to auscultation bilaterally Extremities- Pulses equal bilaterally. No edema noted Neuro- A&Ox3 Labs: Lab Results Component Value Date WBC 9.3 11/18/2021 HGB 11.1 (L) 11/18/2021 HCT 34.1 (L) 11/18/2021 PLATELET 162 11/18/2021 No results for input(s): INR in the last 168 hours. Lab Results Component Value Date NA 141 11/18/2021 K 3.4 (L) 11/18/2021 CL 105 11/18/2021 BUN 23 (H) 11/18/2021 CREATININE 1.32 (H) 11/18/2021 Diagnostic Results: Transthoracic Echo SUMMARY: ?? 1. Pre TAVR: peak gradient 59mmHg, Mean gradient 34mmHg, REGAN 0.86cm2, and CO 5.8L/min 2. Post TAVR: peak gradient 15mmhg, Mean gradient 9mmhg, REGAN 2.12cm2; trivial perivavular leak Assessment: 1. POD#1 TAVR 2. Hx progressively severe low-gradient, low-flow aortic stenosis 3. Post-operative new left bundle branch block. 4. Post-operative first-degree AV block, resolved 5. Preserved LVEF 6. HTN Recommendations: - According to consensus statement on post-TAVR new left bundle branch block, If LBBB persists post-procedure but there is no progression of the duration of the QRS or SD interval, temporary pacing wire can be discontinued. If there is a change in SD and/or QRS duration, the clinician should considerEPS, ambulatory ECG monitoring at hospital discharge, or a PPM. Likewise, for patients with LBBB andQRS >150 ms or SD >240 ms, the clinician should consider EPS, ambulatory ECG monitoring at hospital discharge, or a PPM. In patients with LBBB, QRS ?150 ms, and SD ?240 ms, ambulatory ECG monitoring should be considered. - Recommend additional 24 hours monitoring on telemetry for total 48 hours post- TAVR. If QRS remainsstable without significant progression, would consider Zio ambulatory monitoring on discharge with close follow-up. - Continue to monitor on telemetry - Low threshold for temp wire should pt become HD-unstable (develops worsening conduction abnormalities or high-grade heart block). Consult service will continue to follow patient. JEFFERSON Rowell 11/18/2021 10:52 AM Pager: [phone] Attending: Corrine Soria MD Service Pager: [phone] Staff addendum: I have seen and evaluated the patient, and reviewed the available medical records. Iagree with the findings, physical examination, and assessment of Mr. Villalobos as detailed above. I have reviewed the available telemetry and ECGs and agree with the plan as outlined above which reflects our shared assessment and plan. Corrine Soria MD Brief Op Note - Issac Pena MD - 11/17/2021 9:41 AM EST Preliminary Cardiac Catheterization Procedure Note: Patient Name: Javier Joe : [id number] MR#: [id number] Case Date: 11/17/2021 Chuck Splitter: Surgeon(s) and Role: Panel 1: * Issac Pena MD - Primary * Anam Moseley PA - Physician Superintendent Tests Panel 2: * Uli Richardson MD - Primary Panel 3: * Rigoberto Aggarwal MD - Primary Preoperative diagnosis: Severe aortic stenosis [I35.0] TAVR Postoperative diagnosis: * same* Procedure(s) performed: TAVR with 23mm ultra using conscious sedation Access: Right and left CIVIL ENGINEER LAND DEVELOPMENT--> Perclosed A time-out was conducted prior to the start of the procedure to verify the correct patient and procedure, procedure location, and all relevant critical information. Preliminary findings: 1. Severe aortic stenosis at baseline 2. Successful TAVR with 23mm ultra valve using conscious sedation 3. Echo post shows good valve performance, no leak, mean gradient of 9 mm Hg 4. Development of LBBB post crossing valve with wire with no other heart block 5. Echo shows good LV performance, no pericardial effusion The patient tolerated the procedures smoothly and was transferred from the cardiac catheterization lab to the next level of care in stable condition. No evident early complications. Full report to follow. Issac Pena MD Op Note - Uli Richardson MD - 11/17/2021 8:33 AM EST [facility] SECTION OF CARDIAC SURGERY OPERATIVE REPORT 11/20/21 ? PATIENT NAME:??Javier Joe?1940?? MR#:??[id number] ? REFERRING PHYSICIAN:?? Yuki Sood MD [address] [place] [address] DR VERNON LUJAN [address] [place] [id number] ?? PRE-OPERATIVE DIAGNOSIS: Severe aortic stenosis ? POST-OPERATIVE DIAGNOSIS: Same ? PROCEDURE: ?? 1. Implantation of catheter-delivered prosthetic aortic heart valve; percutaneous femoral artery approach (23??mm Smart SAPIEN3 transcatheter heart valve) ? SURGEON: Uli Richardson MD ? PIG MACHINE SUPERVISOR: ?? Issac Pena M.D. ? ANESTHESIA:? Conscious sedation ? CLINICAL HISTORY:? This is a??81-year-old??woman with aortic stenosis. The patient was evaluated for TAVR and found to be an appropriate candidate and is now taken to the medical lab technologist for transcatheter aortic valve replacement using the S3 device. Risks including , stroke, vascular injury, and need for emergent conversion to open cardiac surgery were discussed with the patient in detail. Surgical priority is elective. ? DESCRIPTION OF PROCEDURE:? After informed consent was obtained, the patient was brought to the cardiac catheterization laboratory and positioned supine on the vascular OR table. Prophylactic antibiotics were administered preoperatively. Invasive monitoring lines were placed by the cardiothoracic anesthesia team. The patient wasprepped and draped from the chin to mid thighs. Surgical time-out was performed. The??right??femoral??artery was accessed percutaneously and a 6-Barbadian sheath placed.??Additionally, the??left??common femoral??artery and??left??femoral??vein were accessed percutaneously and 6-Barbadian sheaths placed. ? The patient was systemically heparinized with 100 units per kg of IV heparin to goal ACT greater than 250. A 6-Barbadian pigtail catheter is then passed up from the??left femoral??arterial sheath and positioned in the right coronary sinus. A transvenous pacing lead is then advanced from the left??femoralvein up to the right ventricle. The #6-Barbadian right femoral sheath is then upsized for a 14- Barbadian Smart E-sheath over a Gregory wire. A root angiogram was shot, and the optimal view for visualization of the aortic root was obtained. ? The aortic valve was then crossed using a straight-tip wire and an AL- 2??catheter. The straight wireis exchanged for a long flexible J-tip wire and the AL-2??exchanged for a 6-Barbadian angled pigtail catheter. A stiff wire was positioned in the apex of the LV under VILLAREAL imaging. Care is taken to avoid co ntact with the ventricular wall with the transition point of the wire to avoid perforation. The C-arm is then changed back to the ideal imaging plane in RO[place]. ? A 23-mm Smart SAPIEN3 device is simulataneously prepped and loaded on the back table and then passed from the right groin and positioned across the aortic valve. The ideal landing zone is identified based on the pigtail catheter in the right coronary sinus, heavy aortic valve calcification, and findings on root angiograms. ? Rapid pacing to a rate of??180??and a blood pressure less than 50 mm Hg is performed, and a final positioning angiogram shot. This is then repeated and the valve deployed with an??90:10 split above andbelow the plane of the annulus. Deployment is done under cineangiography with the root angiogram performed at the beginning of deployment to further delineate the landing zone. The balloon and Commander system are removed through the access sheath. Thoracic aortogram demonstrates no significant paravalvular leak. Similar findings are seen by TTE. The catheters are removed over a wire. The #14-Barbadian introducer sheath is removed, and the??right??common femoral arteriotomy closed percutaneously two??ProGlide closure devices. After holding direct pressure for 20 minutes there was no evidence of bleeding from the closure site. ? Protamine is administered. Hemostasis is obtained. ? All sponge, needle, and instrument counts are reported correct at the end of the case. The patient is taken to medical lab technologist recovery in stable condition at the end of procedure. ? and??I??jointly performed the procedure and all of the critical components ?? Attestation: Case Date: 11/17/2021 ULI RICHARDSON MD 11/20/2021 documented in this encounter Plan of Treatment Scheduled Orders Name Type Priority Associated Diagnoses Order S chedule @TRANSCATHETER AORTIC Procedures Routine Severe aortic One T dany for 1 VALVE REPLACEMENT stenosis Occurrence s starting (TAVR), PERCUTANEOUS 022 until FEMORAL 11/01/2021 EKG 12 Lead ECG Routine LBBB (left bundle One Time f or 1 branch block) Occurrences st arting 11/19/2021 unti l 11/19/2021 EKG 12 Lead ECG Routine S/P TAVR One Time for 1 (transcatheter aortic Occurr ences starting valve replacemen t) 11/19/2021 until LBBB (left bundle 11/19/2021 branch block) EKG 12 Lead ECG Routine S/P TAVR Expected: 12/17, (transcatheter aortic s: 06/18/2022 valve replacement) XR Chest PA & Lateral Imaging Routine S/P TAVR Expect ed: 12/17/2021, (Generic) (transcatheter aortic s: 06/18/2022 valve replacement) documented as of this encounter Procedures Procedure Name Priority Date/Time Associated Comments Diagnosis EKG 12-LEAD STAT 11/19/2021 7:53 S/P TAVR Results for this AM EST (transcatheter procedure are in aortic valve the results replacement) section. LBBB (left bundle branch block) HC VENIPUNCTURE STAT 11/19/2021 7:26 Results f or this AM EST procedure are i n the results section. EKG 12-LEAD STAT 11/18/2021 7:55 S/P TAVR Results for this AM EST (transcatheter procedure are in aortic valve the results replacement) section. CARDIAC CATHETERIZATION Routine 11/18/2021 7:19 Severe aortic Results for this AM EST stenosis procedure are i n the results section. EKG 12-LEAD Routine 11/18/2021 6:17 S/P TAVR Results for this AM EST (transcatheter procedure are in aortic valve the results replacement) section. HEMOGRAM Routine 11/18/2021 4:14 Results for this AM EST procedure are i n the results section. DIFFERENTIAL, AUTOMATED Routine 11/18/2021 4:14 R esults for this AM EST procedure are i n the results section. HC VENIPUNCTURE Routine 11/18/2021 4:14 AM EST BASIC METABOLIC PANEL Routine 11/18/2021 4:14 Res ults for this (NON-FASTING) AM EST procedure are in the results section. HC HEMOGLOBIN, BLOOD Routine 11/17/2021 3:56 Resu lts for this PM EST procedure are i n the results section. HC VENIPUNCTURE Routine 11/17/2021 3:56 Results f or this PM EST procedure are i n the results section. EKG 12-LEAD Routine 11/17/2021 10:03 Aortic valve Results for this AM EST stenosis, etiology procedure are in of cardiac valve the results disease unspecified section. POINT OF CARE BLOOD GAS Routine 11/17/2021 8:56 R esults for this HISTORICAL AM EST procedure are i n the results section. TYPE AND SCREEN STAT 11/17/2021 8:00 Results f or this VALIDITY AM EST procedure are i n the results section. ABORH RECHECK STATUS STAT 11/17/2021 8:00 Resu lts for this AM EST procedure are i n the results section. ABORH TYPE MANUAL STAT 11/17/2021 8:00 Results for this AM EST procedure are i n the results section. SELECTED CELL SCREEN STAT 11/17/2021 8:00 Resu lts for this AM EST procedure are i n the results section. IMPLANTABLE DEVICES 11/17/2021 12:00 SCAN AM EST documented in this encounter Results ECHOCARDIOGRAM COMPLETE (01/19/2022 3:08 PM EDT) Anatomical Region Laterality Modality Other Specimen (Source) Anatomical Collection Method Collection Time Re ceived Time Location / / Volume Laterality 01/19/2022 2:28 PM EDT Narrative 01/19/2022 3:55 PM EDT ?[facility] ?[address] ? [place] [address] ?Voice: ?Fax: ? Echocardiogram Report Name: JAVIER JOE Saritha ? Study Date: 01/19/2022 02:28 PM ? Patient Location: : 1940 ? Height: 160 cm ? Account: [id number] Age: 81 yrs ? Weight: 79 kg Gender: Female ?BSA: 1.8 m2 Ordering Physician: ULI RICHARDSON Referring Physician: CHARLENE ERNST Performed By: Viktoria Mazariegos RDCS Reason For Study: S/P TAVR Exam Location: [facility]. Interpretation Summary Normal LV size and function. EF 68%. Inc reased LV wall thickness and mass. Normal RV size and function. Normal PASP . 23 mm Gulshan in AoV position implanted 2021. Mild paravalve leak. Mean gradient 10 mm Hg. Procedure Complete-29042. Satisfactory quality. Th ere is normal sinus [...] cm ?SI(LVOT): 46.7 ml/m2 Doppler TR max sohpia: 245.2 cm/sec Ao V2 VTI: 45.0 cm Ao valve max: 18.2 mmHg Ao valve mean: 10.1 mmHg MV E max sophia: 81.6 cm/sec MV A max sophia: 134.1 cm/sec MV E/A: 0.61 MV dec time: 0.34 sec Lat Peak E' Sophia: 7.9 cm/sec E/ e' (lat): 10.3 Med Peak E' Sophia: 8.3 cm/sec E/e' (med): 9.9 E/e' Average: [...] diffuse Procedure Note Janes Larson MD - 01/19/2022Formcarmine vasquez of this note might be different from the original. [facility] [address] [place] [address] Voice: Fax: Echocardiogram Report Name: NILAY JOESOLO Melara Study Date: 2021 02:28 PM Patient Location: : 1940 Height: 160 cm Account: [id number] Age: 81 yrs Weight: 79 kg Gender: Female BSA: 1.8 m2 Ordering Physician: ULI RICHARDSON Referring Physician: CHARLENE ERNST Performed By: Viktoria Mazariegos RDCS Reason For Study: S/P TAVR Exam Location: [facility]. Interpretation Summary Normal LV size and function. EF 68%. Inc reased LV wall thickness and mass. Normal RV size and function. Normal PASP . 23 mm Gulshan in AoV position implanted F eb 2021. Mild paravalve leak. Mean gradient 10 mm Hg. Procedure Complete-64747. Satisfactory quality. Th ere is normal sinus [...] cm SI(LVOT): 46.7 ml/m2 Doppler TR max sophia: 245.2 cm/sec Ao V2 VTI: 45.0 cm Ao valve max: 18.2 mmHg Ao valve mean: 10.1 mmHg MV E max sophia: 81.6 cm/sec MV A max sophia: 134.1 cm/sec MV E/A: 0.61 MV dec time: 0.34 sec Lat Peak E' Sophia: 7.9 cm/sec E/ e' (lat): 10.3 Med Peak E' Sophia: 8.3 cm/sec E/e' (med): 9.9 E/e' Average: 10.1 REGAN(I,D): 1.9 cm2 Dimensionless index Aov: 0.60 mild paravalvular leak I WMSI = 1.00 % Normal = 100 Segments Size X - Cannot 1 - Normal 2 - 3 - Akinetic 4 - 1-2 small Interpret Hypokinetic Dyskinetic 3-5 mod erate 5 - 6-14 large Aneurysmal 15-16 diffuse Uli Richardson MD ECHO ORDERABLES (ABNORMAL) Comprehensive metabolic panel (non-fasting) (01/19/2022 1:51 PM EDT) P athologist Signature Glucose Lvl 135 65 - [address] [facility] mg/dL [facility] Comment: Diabetes: >=200 mg/dL plus symp toms BUN 34 (H) 8 - 18 mg/dL [facility] Creatinine 1.51 (H) 0.70 - 1.20 mg/dL [facility] Sodium 139 135 - 145 mmol/L [facility] Potassium 4.1 3.5 - 5.0 mmol/L [facility] Comment: Please note: ??Patients with WBC >100,00 0 may have falsely elevated Potassium levels. ??For accurate Potassium quantif ication in these patients send serum separator tube (gold top) for subsequent determinations. ??Contact the Clinical Chemistry Laboratory if there are any qu estions. Chloride 99 98 - 107 mmol/L [facility] CO2 28 22 - 31 mmol/L [facility] Anion Gap 12 5 - 15 mmol/L [facility] Calcium 10.4 8.5 - 10.5 mg/dL [facility] Total Protein 7.4 6.1 - 8.0 g/dL [facility] Albumin 4.7 3.2 - 5.2 g/dL [facility] AST 16 0 - 30 unit/L [facility] ALT 22 0 - 30 unit/L [facility] Alk Phos 44 35 - 105 unit/L [facility] Total Bilirubin 1.0 0.2 - 1.3 mg/dL [facility] Estimated GFR 32 (L) >=60 mL/min/1.73 m?? [facility] Comment: This patient? s estimated glomerular filtration rate (eGFR) is between 32 mL/min/1.73 m2 (patients with less muscl e mass) and 37 mL/min/1.73 m2 (patients with more muscle mass) as determined by the CKD-EPI equation. Assessment of eGFR is not appropriate when creatinine concentrations are rapidly changing. For clinical decisions where creatinine clearance will affect therapy, a 24-hour urine creatinine clearance may b e advised. Assignment of CKD stage 1 - 5 for patien ts with an eGFR near the transition point between stages may be based on cli nical assessment of muscle mass and symptoms in addition to eGFR. Specimen Anatomical Collection Method Collection Time Receive d Time (Source) Location / / Volume Laterality Blood 01/19/2022 1:51 PM 2 2:15 EDT PM EDT Resulting Agency Comment Spec In Lab Uli Richardson MD CHEMISTRY ORDERABLES Performing Organization Address City/State/ZIP Code Phon e Number [place] [phone] EKG 12 Lead (11/19/2021 7:53 AM EST) Component Value Ref Range Test Analysis Performed Pathologis t Method Time At Signature Ventricular rate 77 BPM MUSE SYSTEM Atrial Rate 77 BPM MUSE SYSTEM P-R Interval 194 ms MUSE SYSTEM QRS Duration 82 ms MUSE SYSTEM Q-T Interval 396 ms MUSE SYSTEM QTC Calculated 448 ms MUSE SYSTEM (Bezet) Calculated P Spring 70 degrees MUSE SYSTEM Calculated R Spring 5 degrees MUSE SYSTEM Calculated T Spring 90 degrees MUSE SYSTEM INTERPRETATION Normal sinus rhythm MUSE SYSTEM Nonspecific T wave abnormality When compared with ECG of 18-NOV-2021 07:55, Left bundle branch block is no longer Present Confirmed by MD Yang, Corrine Rubin ([id number]) on 11/19/2021 10:44: 22 AM Specimen Anatomical Collection Method Collection Time Receive d Time (Source) Location / / Volume Laterality 11/19/2021 7:53 AM 2 EST 10:44 AM EST Nahum De Paz MD ECG ORDERABLES Performing Organization Address City/[facility]/ZIP Code Phon e Number MUSE SYSTEM Potassium (11/19/2021 7:26 AM EST) P athologist Signature Potassium 3.6 3.5 - 5.[address] [facility] mmol/L [facility] Comment: Please note: ??Patients with WBC >100,00 0 may have falsely elevated Potassium levels. ??For accurate Potassium quantif ication in these patients send serum separator tube (gold top) for subsequent determinations. ??Contact the Clinical Chemistry Laboratory if there are any qu estions. Specimen Anatomical Collection Method Collection Time Receive d Time (Source) Location / / Volume Laterality Blood 11/19/2021 7:26 AM 2 7:36 EST AM EST Resulting Agency Comment Spec In Lab Nahum De Paz MD CHEMISTRY ORDERABLES Performing Organization Address City/State/ZIP Code Phon e Number [place] [phone] [facility] [address] EKG 12 Lead (11/18/2021 7:55 AM EST) Component Value Ref Range Test Analysis Performed Pathologis t Method Time At Signature Ventricular rate 82 BPM MUSE SYSTEM Atrial Rate 82 BPM MUSE SYSTEM P-R Interval 182 ms MUSE SYSTEM QRS Duration 132 ms MUSE SYSTEM Q-T Interval 428 ms MUSE SYSTEM QTC Calculated 500 ms MUSE SYSTEM (Bezet) Calculated P Spring 63 degrees MUSE SYSTEM Calculated R Spring -10 degrees MUSE SYSTEM Calculated T Spring 132 degrees MUSE SYSTEM INTERPRETATION Normal sinus rhythm MUSE SYSTEM Left bundle branch block When compared with ECG of 18-NOV-2021 06:17, No significant change was found Confirmed by MD Cortney, Bart Flores ([id number]) on 11/18/2021 10:43:2 1 AM Specimen Anatomical Collection Method Collection Time Receive d Time (Source) Location / / Volume Laterality 11/18/2021 7:55 AM 2 EST 10:43 AM EST Nahum De Paz MD ECG ORDERABLES Performing Organization Address City/State/ZIP Code Phon e Number MUSE SYSTEM CARDIAC CATHETERIZATION (11/18/2021 7:19 AM EST) Anatomical Region Laterality Modality Other Specimen (Source) Anatomical Location Collection Method / Collectio n Time Received Time / Laterality Volume Narrative 11/18/2021 7:19 AM EST ?[facility] ? Cardiac Cathete rization/Intervention Report ? Patient Name: Tatyana, Javier L. ? Procedure Date: 11/17/2021 ? A #: [id number] ? Primary Physician: Jean, Issac T ? Case #: [id number] ? File Name: [id number] ? Catheterization Order Number: [id number] ? [facility] ? Final Report [place], [place] ? Patient Name: ? Javier L. Kal e ?ID#: ?[id number] ? : ?1940 ? Procedure Date: ? February 4, 202 2 ? Case #: ? [id number] ? Room: ? 6 ? Case Physicians: ?Issac Pena M.D. ?Start: ?08:58 ?Taisha Richardson M.D. ? Admission: ??11/17/2021 ?Manuel Hilario ?Dr Brittany dalal M.D. ? Referring Physician: ??Yuki Sood M.D. ? Procedures: ?* Left Heart Catheterization ?* Aortic Root Aortogram ?* Transcatheter Aortic Valve Re placement ?* Vascular Closure Device Deplo yment ?* Temporary Pacemaker Insertion In Sourcing Manager ?* Arterial Line / Sheath Insert ?* Venous Line / Sheath Insert ?* Access Site Angiography ?* Arterial Blood Gases ?* Transthoracic Echo During Cat h ? History ?Javier Joe is an 81 year o ld woman. She has hypertension. The ?patient's smoking status is For palomo. She has hypercholesterolemia ?controlled by diet. The patient also has a history of chronic obstructive ?pulmonary disease. Prior to the initiation of this procedure, the patient ?was designated as ASA Class III . The [facility] clinical frailty scale is 6: ?Moderately Frail. ? Diagnostic Tests: ?Prior Coronary Angiography: ? Prior coronary angiograp hy was performed on 08/29/2021 and showed ? non-obstructive CAD. LV ejection fraction within 6 months is 57%. ?Medications Prior to Procedure: ? Aspirin, Angiotensin II Receptor Karly, Beta Karly and Calcium ? Channel Blocking Agent. ? Indications for Diagnostic Cath: ?The priority of the diagnostic procedure was Elective. Chest pain symptom ?assessment was: Asymptomatic. O ne of the indications for cath is valvular ?heart disease. The patient has Severe aortic stenosis. ? Technique: ?A 14Fr sheath was inserted in t he right femoral artery utilizing the ?Seldinger technique. A 6Fr garcia th was inserted in the left femoral artery ?utilizing the Seldinger techniq ue. A 6Fr sheath was inserted in the left ?femoral vein utilizing the Seld polo technique. Left ventriculography was ?performed with a 6Fr PIGTAIL ca theter. A Balloon bipolar lead was placed ?for a temporary pacing lead. 6, 500 units of heparin were administered. A ?total of 150cc of Omnipaque wer e opened, 104cc of Omnipaque were ?administered and 46cc of Omnipa que were wasted. Radiation: Fluoro time ?was 8.6 minutes, dose area prod uct was 43,600 mGYcm2 and air kerma was ?414 mGY. See the case log for a dditional details. ?The patient received the follow ing medications prior to and during the ?procedure: ? Unfractionated Heparin. ? Hemodynamics: ? Hemodynamic Profile: ?Profile 1 ? Profile 2 ?CO ? 5.80 ?4.80 ?CI ? 3.20 ?2.65 ?Techniq ue ?Echo ?Echo ?Left Heart Pressures ? Resting: ? Syst D iast ? EDP ?a ?v ? m ?LA ? 21 ?20 ?14 ? Stenotic Valve Data: ?Aortic Valve ?Peak Gradient - 59 ?Mean Gradient - 34 ?Area - 0.8 sq. cm. ?Comments: ??Pre ECHO results: ? ?peak 59, mean 34, area 0.86, CO 5.8. ? Aortography: ?Normal ?Aortic ?trace ?Regurgitation: ?Comments: ? There were three aortic cusps. There was evidence of aortic valve ? calcification. The aorti c arch was calcified. ? Indication for Selected Procedures: ?A temporary pacemaker was inser april for pacing. ? Transcatheter Aortic Valve Replacement ( TAVR): ?A transcatheter aortic valve re placement was performed. The primary ?indication for the procedure wa s Primary and the reason for the ?procedure was low risk (<4% ris k of 30 day mortality) surgical risk. The ?etiology of the aortic valve di myrna was degenerative. The valve ?morphology was tricuspid and th ere was trace/trivial aortic insufficiency ?at baseline. ?The procedure was performed in the hybrid cath suite. The aortic valve ?annular size was 426 sq.mm. as assessed by CTA. At baseline the mean ?trans-valvular gradient was 27. 0 mmHg and the aortic valve area was 0.9 ?sq.cm. The calculated STS risk score was 3.1%. ?The procedure was performed und er Moderate sedation. Uli Richardson, ?Carri participated in the case ( see Cardiac Surgery report for additional ?details). ?The TAVR sheath was a 14 Fr Edw ards eSheath Introducer and the access ?site was femoral. Rapid ventric ular pacing was performed. ?An Smart Gulshan 3 Ultra 23 mm THV (s/g=[id number]) transcatheter valve was ?inserted using standard SocietyOne ue. Protamine was administered at the ?conclusion of the case. ?The post procedure mean trans-v alvular gradient was 9.0 mmHg by ?hemodynamic measurement. A post procedure transthoracic echocardiogram ?was performed. The mean trans-T AVR valve gradient was 9.0 mmHg and the ?valve area was 2.1 sq.cm. There was trace/trivial residual aortic ?insufficiency as assessed by kathia th echo and aortography. ?The TAVR procedure was successf ul. ? Vascular Access: ?Vascular Access Angiogram: ? A selective angiogram at the left femoral artery revealed mild ? diffuse disease. A selec tive angiogram at the access site also ? revealed High common fem oral artery (Left) bifurcation. ??Access ? achieved in superficial femoral artery. ? A selective angiogram at the right femoral artery revealed no ? significant obstructive disease. ?Vascular Access Management: ? A 6 Fr Perclose was depl oyed at the left femoral artery access site. ? This device was successf ul. Manual Compression of the left femoral ? artery access site was p erformed. ? A 6 Fr Perclose was depl oyed at the right femoral artery access ? site. This device was sparks ccessful. Manual Compression of the right ? femoral artery access si te was performed. ? Manual Compression of th e left femoral vein access site was ? performed. ? Point of Care Testing: ?ABG: ? Arterial Blood gasses we re performed using the I-Stat analyzer at ? 08:56: pH: 7.40, pCO2: 4 3.0, pO2: 226.0, sPO2: 100%, HCO3: 27 on ? FIO2: 100. ? Dual Antiplatelet (DAPT) Recommendations : ?Patient was not on a P2Y12 inhi bitor prior to nor was it given in the ?medical lab technologist. ?Recommended anti-platelet/anti- thrombotic regimen: ?Continue aspirin 81 mg daily fo r indefinitely. ?These recommendations are made at the time of the intervention. Patient ?and provider preferences or a c hanging clinical situation may require ?modification of this regimen. C onsult [facility] Interventional Cardiology for ?questions. ? Conclusions: ?* Severe aortic stenosis ?* Trace aortic regurgitation ?* Aortic arch calcification was detected ?* Successful Transcatheter Aort ic Valve Replacement ?* See Dual Antiplatelet (DAPT) Recommendations above ? Complications/Events: ?The patient had no complication s during these procedures. ?The attending physician was presen emma for the entire procedure. ?Dr. Issac Pena M.D. performe d the access site angiography, temporary ?pacemaker in medical lab technologist, vascular cl osure device, ABG, TAVR, venous line / ?sheath insert, aortic root aortogr am and left heart catheterization. ?Uli Richardson M.D. performed the temporary pacemaker in medical lab technologist, ?vascular closure device, ABG and T AVR. Dr. Anam Moseley PRolando performed ?the access site angiography, tempo rary pacemaker in medical lab technologist, vascular ?closure device, ABG, TAVR, left he art catheterization and aortic root ?aortogram. Dr. Dr Carolyn M.D. performed the arterial line / sheath ?insert, ABG, TAVR and transthoraci c echo . ? Issac Pena M.D. ? Electronically Signed by: Issac su M.D. ? Report Finalized: 11/18/2021 ??07:12 ? Procedure Note Issac Pena MD - 11/18/2021Formatt ing of this note might be different from the original. [facility] Cardiac Catheterization/Intervention Re port Patient Name: Javier Joe Procedure Date: 11/17/2021 A #: [id number] Primary Physician: Issac Pena Case #: [id number] File Name: [id number] Catheterization Order Number: [id number] [facility] Final Report [place], [place] Patient Name: Javier Joe ID#: [id number] : [id number] Procedure Date: November 17, 2021 Case #: [id number] Room: 6 Case Physicians: Issac Pena M.D. S tart: 08:58 Uli Richardson M.D. Admission: 01/[address], M.D. Referring Physician: Yuki Sood M.D. Procedures: * Left Heart Catheterization * Aortic Root Aortogram * Transcatheter Aortic Valve Replacemen t * Vascular Closure Device Deployment * Temporary Pacemaker Insertion In Sourcing Manager * Arterial Line / Sheath Insert * Venous Line / Sheath Insert * Access Site Angiography * Arterial Blood Gases * Transthoracic Echo During Cath History Javier Joe is an 81 year old woman . She has hypertension. The patient's smoking status is Former. She has hypercholesterolemia controlled by diet. The patient also prieto s a history of chronic obstructive pulmonary disease. Prior to the initiat ion of this procedure, the patient was designated as ASA Class III. The [facility] clinical frailty scale is 6: Moderately Frail. Diagnostic Tests: Prior Coronary Angiography: Prior coronary angiography was performe d on 08/29/2021 and showed non-obstructive CAD. LV ejection fracti on within 6 months is 57%. Medications Prior to Procedure: Aspirin, Angiotensin II Receptor Blocke r, Beta Karly and Calcium Channel Blocking Agent. Indications for Diagnostic Cath: The priority of the diagnostic procedur e was Elective. Chest pain symptom assessment was: Asymptomatic. One of th e indications for cath is valvular heart disease. The patient has Severe a ortic stenosis. Technique: A 14Fr sheath was inserted in the right femoral artery utilizing the Seldinger technique. A 6Fr sheath was i nserted in the left femoral artery utilizing the Seldinger technique. A 6F r sheath was inserted in the left femoral vein utilizing the Seldinger te chnique. Left ventriculography was performed with a 6Fr PIGTAIL catheter. A Balloon bipolar lead was placed for a temporary pacing lead. 6,500 unit s of heparin were administered. A total of 150cc of Omnipaque were opened , 104cc of Omnipaque were administered and 46cc of Omnipaque were wasted. Radiation: Fluoro time was 8.6 minutes, dose area product was 43,600 mGYcm2 and air kerma was 414 mGY. See the case log for additiona l details. The patient received the following medi cations prior to and during the procedure: Unfractionated Heparin. Hemodynamics: Hemodynamic Profile: Profile 1 Profile 2 CO 5.80 4.80 CI 3.20 2.65 Technique Echo Echo Left Heart Pressures Resting: Syst Diast EDP a v m LA 21 20 14 Stenotic Valve Data: Aortic Valve Peak Gradient - 59 Mean Gradient - 34 Area - 0.8 sq. cm. Comments: Pre ECHO results: peak 59, me an 34, area 0.86, CO 5.8. Aortography: Normal Aortic trace Regurgitation: Comments: There were three aortic cusps. There wa s evidence of aortic valve calcification. The aortic arch was calc ified. Indication for Selected Procedures: A temporary pacemaker was inserted for pacing. Transcatheter Aortic Valve Replacement ( TAVR): A transcatheter aortic valve replacemen t was performed. The primary indication for the procedure was Primar y and the reason for the procedure was low risk (<4% risk of 30 day mortality) surgical risk. The etiology of the aortic valve disease wa s degenerative. The valve morphology was tricuspid and there was trace/trivial aortic insufficiency at baseline. The procedure was performed in the [facility] id cath suite. The aortic valve annular size was 426 sq.mm. as assessed by CTA. At baseline the mean trans-valvular gradient was 27.0 mmHg a nd the aortic valve area was 0.9 sq.cm. The calculated STS risk score wa s 3.1%. The procedure was performed under Moder ate sedation. Uli Richardson M.D. participated in the case (see [facility] Surgery report for additional details). The TAVR sheath was a 14 Fr Smart eSh eath Introducer and the access site was femoral. Rapid ventricular pac ing was performed. An Smart Gulshan 3 Ultra 23 mm THV (s/ f=[id number]) transcatheter valve was inserted using standard technique. Prot amine was administered at the conclusion of the case. The post procedure mean trans-valvular gradient was 9.0 mmHg by hemodynamic measurement. A post procedu re transthoracic echocardiogram was performed. The mean trans-TAVR valv e gradient was 9.0 mmHg and the valve area was 2.1 sq.cm. There was tra ce/trivial residual aortic insufficiency as assessed by both echo and aortography. The TAVR procedure was successful. Vascular Access: Vascular Access Angiogram: A selective angiogram at the left femor al artery revealed mild diffuse disease. A selective angiogram at the access site also revealed High common femoral artery (Le ft) bifurcation. Access achieved in superficial femoral artery. A selective angiogram at the right femo ral artery revealed no significant obstructive disease. Vascular Access Management: A 6 Fr Perclose was deployed at the lef t femoral artery access site. This device was successful. Manual Comp ression of the left femoral artery access site was performed. A 6 Fr Perclose was deployed at the rig ht femoral artery access site. This device was successful. Manua l Compression of the right femoral artery access site was performe d. Manual Compression of the left femoral vein access site was performed. Point of Care Testing: ABG: Arterial Blood gasses were performed us ing the I-Stat analyzer at 08:56: pH: 7.40, pCO2: 43.0, pO2: 226.0 , sPO2: 100%, HCO3: 27 on FIO2: 100. Dual Antiplatelet (DAPT) Recommendations : Patient was not on a P2Y12 inhibitor pr ior to nor was it given in the medical lab technologist. Recommended anti-platelet/anti-thrombot ic regimen: Continue aspirin 81 mg daily for indefi nitely. These recommendations are made at the t dany of the intervention. Patient and provider preferences or a changing clinical situation may require modification of this regimen. Consult [facility] Interventional Cardiology for questions. Conclusions: * Severe aortic stenosis * Trace aortic regurgitation * Aortic arch calcification was detecte d * Successful Transcatheter Aortic Valve Replacement * See Dual Antiplatelet (DAPT) Recommen dations above Complications/Events: The patient had no complications during these procedures. The attending physician was present for the entire procedure. Dr. Issac Pena M.D. performed the access site angiography, temporary pacemaker in medical lab technologist, vascular closure device, ABG, TAVR, venous line / sheath insert, aortic root aortogram an d left heart catheterization. Dr. Uli Richardson M.D. performed the temporary pacemaker in medical lab technologist, vascular closure device, ABG and TAVR. Dr. Anam Moseley, P.AKj performed the access site angiography, temporary pacemaker in medical lab technologist, vascular closure device, ABG, TAVR, left heart c atheterization and aortic root aortogram. Dr. Dr Carolyn M.D. perf ormed the arterial line / sheath insert, ABG, TAVR and transthoracic ech o . Issac Pena M.D. Electronically Signed by: Issac su M.D. Report Finalized: 11/18/2021 07:12 Issac Pena MD CARDIAC CATH ORDERABLES EKG 12 Lead (11/18/2021 6:17 AM EST) Component Value Ref Range Test Analysis Performed Pathologis t Method Time At Signature Ventricular rate 94 BPM MUSE SYSTEM Atrial Rate 94 BPM MUSE SYSTEM P-R Interval 194 ms MUSE SYSTEM QRS Duration 128 ms MUSE SYSTEM Q-T Interval 408 ms MUSE SYSTEM QTC Calculated 510 ms MUSE SYSTEM (Bezet) Calculated P Spring 62 degrees MUSE SYSTEM Calculated R Spring -14 degrees MUSE SYSTEM Calculated T Spring 123 degrees MUSE SYSTEM INTERPRETATION Normal sinus rhythm MUSE SYSTEM Left bundle branch block Left ventricular hypertrophy with QRS widening and repolarization abnormality ( R in aVL , Kody product ) When compared with ECG of 17-NOV-2021 10:03, Vent. rate has increased BY ??35 BPM No significant change was found Confirmed by MD Cortney, Bart Flores ([id number]) on 11/18/2021 10:42:5 6 AM Specimen Anatomical Collection Method Collection Time Receive d Time (Source) Location / / Volume Laterality 11/18/2021 6:17 AM 2 EST 10:42 AM EST Issac Pena MD ECG ORDERABLES Performing Organization Address City/State/ZIP Code Phon e Number MUSE SYSTEM (ABNORMAL) Differential, Automated (11/18/2021 4:14 AM EST) Patholo gist Method Time Signature Neutrophils % 78.8 % [facility] Neutr Abs (ANC) 7.31 (H) 1.70 - [facility] 6.10 [facility] x10(3)/[facility] L LABORATORY Lymphocytes % 7.6 % [facility] Lymphocytes Abs 0.7 (L) 0.9 - 3.[address] [facility] x10(3)/[facility] LABORATORY Monocytes % 11.2 % [facility] Monocyte Abs 1.0 (H) 0.3 - 0.[address] [facility] x10(3)/[facility] LABORATORY Eosinophils % 1.8 % [facility] Eosinophils Abs 0.2 0.0 - 0.[address] [facility] x10(3)/[facility] LABORATORY Basophils % 0.3 % [facility] Basophils Abs 0.0 0.0 - 0.[address] [facility] x10(3)/[facility] LABORATORY Immature Gran % 0.30 % [facility] Comment: Immature granulocytes(IG's)percentage an d absolute count will include metamyelocytes, myelocytes, and promyelo cytes. Blood smears from CBCs yielding IG's will be scanned manually for concor dance. If this scan disagrees with the automated IG or if promyelocytes are not ed, a manual differential will be performed. [place] Gran Abs 0.03 0.00 - 0.04 x10(3)/[facility] Specimen Anatomical Collection Method Collection Time Receive d Time (Source) Location / / Volume Laterality Blood 11/18/2021 4:14 AM 4:39 EST AM EST Resulting Agency Comment Spec In Lab Arya PAULINO HEMATOLOGY ORDERABLES Performing Organization Address City/State/ZIP Code Phon e Number [place] [phone] (ABNORMAL) Hemogram (11/18/2021 4:14 AM EST) Analysis Performed At Patho logist Time Signature WBC 9.3 4.0 - 9.[address] [facility] x10(3)/[facility] LABORATORY RBC 3.58 (L) 4.00 - [facility] 5[facility]21 [facility] x10(6)/[facility] LABORATORY Hemoglobin 11.1 (L) 11.7 - [facility] 15.5 g/dL [facility] Hematocrit 34.1 (L) 35.7 - [facility] 45.8 % [facility] MCV 95.3 (H) 82.6 - [facility] 94[facility]4 [facility] MCH 31.0 27.1 - [facility] 32.0 pg [facility] MCHC 32.6 31.7 - [facility] 35.0 g/dL [facility] Platelets 162 145 - [address] [facility] x10(3)/[facility] LABORATORY RDWSD 46.4 (H) 37.0 - [facility] 46.0 [facility] RDWCV 13.2 11.5 - [facility] 14.1 % [facility] MPV 10.9 7.6 - 12.9 [facility] LABORATORY nRBC % Auto 0.0 % [facility] nRBC Abs Auto 0.000 0.000 - [facility] 0.000 [facility] x10(3)/[facility] LABORATORY Specimen Anatomical Collection Method Collection Time Receive d Time (Source) Location / / Volume Laterality Blood 11/18/2021 4:14 AM 4:39 EST AM EST Resulting Agency Comment Spec In Lab Arya PAULINO HEMATOLOGY ORDERABLES Performing Organization Address City/State/[place] [address] (ABNORMAL) Basic Metabolic Panel (non-fasting) (11/18/2021 4:14 AM EST) athologist Signature Glucose Lvl 107 65 - [address] [facility] mg/dL [facility] Comment: Diabetes: >=200 mg/dL plus symp toms BUN 23 (H) 8 - 18 mg/dL [facility] Creatinine 1.32 (H) 0.70 - 1.20 mg/dL [facility] Sodium 141 135 - 145 mmol/L [facility] Potassium 3.4 (L) 3.5 - 5.0 mmol/L [facility] Comment: Please note: ??Patients with WBC >100,00 0 may have falsely elevated Potassium levels. ??For accurate Potassium quantif ication in these patients send serum separator tube (gold top) for subsequent determinations. ??Contact the Clinical Chemistry Laboratory if there are any qu estions. Chloride 105 98 - 107 mmol/L [facility] CO2 25 22 - 31 mmol/L [facility] Anion Gap 11 5 - 15 mmol/L [facility] Calcium 8.4 (L) 8.5 - 10.5 mg/dL [facility] Estimated GFR 38 (L) >=60 mL/min/1.73 m?? [facility] Comment: This patient? s estimated glomerular filtration rate (eGFR) is between 38 mL/min/1.73 m2 (patients with less muscl e mass) and 44 mL/min/1.73 m2 (patients with more muscle mass) as determined by the CKD-EPI equation. Assessment of eGFR is not appropriate when creatinine concentrations are rapidly changing. For clinical decisions where creatinine clearance will affect therapy, a 24-hour urine creatinine clearance may b e advised. Assignment of CKD stage 1 - 5 for patien ts with an eGFR near the transition point between stages may be based on cli nical assessment of muscle mass and symptoms in addition to eGFR. Specimen Anatomical Collection Method Collection Time Receive d Time (Source) Location / / Volume Laterality Blood 11/18/2021 4:14 AM 2 4:39 EST AM EST Resulting Agency Comment Spec In Lab Issac Pena MD CHEMISTRY ORDERABLES Performing Organization Address City/[facility] [place] [address] Hemoglobin (11/17/2021 3:56 PM EST) P athologist Signature Hemoglobin 12.7 11.7 - 15.[address] [facility] g/dL [facility] Specimen Anatomical Collection Method Collection Time Receive d Time (Source) Location / / Volume Laterality Blood 11/17/2021 3:56 PM 2 4:23 EST PM EST Resulting Agency Comment Spec In Lab Issac Pena MD HEMATOLOGY ORDERABLES Performing Organization Address City/[facility] [place] [address] Potassium (11/17/2021 3:56 PM EST) P athologist Signature Potassium 3.9 3.5 - 5.[address] [facility] mmol/L [facility] Comment: Please note: ??Patients with WBC >100,00 0 may have falsely elevated Potassium levels. ??For accurate Potassium quantif ication in these patients send serum separator tube (gold top) for subsequent determinations. ??Contact the Clinical Chemistry Laboratory if there are any qu estions. Specimen Anatomical Collection Method Collection Time Receive d Time (Source) Location / / Volume Laterality Blood 11/17/2021 3:56 PM 2 4:23 EST PM EST Resulting Agency Comment Spec In Lab Issac Pena MD CHEMISTRY ORDERABLES Performing Organization Address City/[facility]/ZIP [facility] [place] [place] [address] EKG 12 Lead (11/17/2021 10:03 AM EST) Component Value Ref Range Test Analysis Performed Pathologis t Method Time At Signature Ventricular rate 59 BPM MUSE SYSTEM Atrial Rate 59 BPM MUSE SYSTEM P-R Interval 210 ms MUSE SYSTEM QRS Duration 134 ms MUSE SYSTEM Q-T Interval 518 ms MUSE SYSTEM QTC Calculated 512 ms MUSE SYSTEM (Bezet) Calculated P Spring 57 degrees MUSE SYSTEM Calculated R Spring -17 degrees MUSE SYSTEM Calculated T Spring 133 degrees MUSE SYSTEM INTERPRETATION Sinus bradycardia with 1st degree A-V block MUSE SYSTEM Left bundle branch block Abnormal ECG When compared with ECG of 24-AUG-2021 13:11, SD interval has increased Left bundle branch block is now Present Confirmed by MD Danial, Milo Kelly ([id number]) on 11/17/2021 12:55:4 2 PM Specimen Anatomical Collection Method Collection Time Receive d Time (Source) Location / / Volume Laterality 11/17/2021 10:03 11/17/2021 AM EST 12:55 PM EST Issac Pena MD ECG ORDERABLES Performing Organization Address City/State/ZIP Code Phon e Number MUSE SYSTEM (ABNORMAL) Point of Care Blood Gas Historical (11/17/2021 8:56 AM EST) Patholo gist Method Time Signature POC pH 7.41 7.35 - [facility] 7.45 [facility] POC PCO2 43 35 - [address] [facility] mmHg [facility] POC PO2 226 (H) 85 - [address] [facility] mmHg [facility] POC Base Excess 2.0 -3.0 - 3.0 [facility] K mmol/L [facility] POC HCO3 27.2 (H) 20.0 - [facility] 26.0 [facility] mmol/L HOSPITAL LABORATORY POC Sodium 141 135 - [address] [facility] mmol/L [facility] POC Potassium 3.5 3.5 - 5.[address] [facility] mmol/L [facility] POC Hematocrit 33.0 (L) 34.0 - [facility] 45.0 % [facility] POC Calc Hgb 11.2 11.2 - [facility] 15.7 g/dL [facility] Comment: The calculation of hemoglobin f rom hematocrit assumes a normal MCHC. POC Bgas Loc CC LAB [facility] LABORATORY Specimen Anatomical Collection Method Collection Time Receive d Time (Source) Location / / Volume Laterality Blood 11/17/2021 8:56 AM 9:00 EST AM EST Uli Richardson MD CHEMISTRY ORDERABLES Performing Organization Address City/[facility]/ZIP Code Phon e Number [address] Type and Screen Validity (11/17/2021 8:00 AM EST) [facility] [employer] Method Time Signature T&S only valid [facility] LABORATORY Comment: This Type and Screen result is only valid at the [facility] Specimen Anatomical Collection Method Collection Time Receive d Time (Source) Location / / Volume Laterality Blood Venous Draw / 11/17/2021 8:00 AM 11/17/19 22 8:16 Unknown EST AM EST Resulting Agency Comment Spec In Lab Anam PAULINO BLOOD BANK ORDERABLES Performing Organization Address City/[facility]/ZIP Code Phon e Number [address] ABORH Recheck Status (11/17/2021 8:00 AM EST) [facility] [employer] Method Time Signature ABORH Type Completed [facility] LABORATORY Specimen Anatomical Collection Method Collection Time Receive d Time (Source) Location / / Volume Laterality Blood Venous Draw / 11/17/2021 8:00 AM 11/17/19 22 8:16 Unknown EST AM EST Resulting Agency Comment Spec In Lab Anam PAULINO BLOOD BANK ORDERABLES Performing Organization Address City/[facility]/ZIP Code Phon e Number [address] Selected Cell Screen (11/17/2021 8:00 AM EST) Component Value Ref Test Analysis Performed At [facility] [employer] Method Time Signature Ab Screen Previously identified Anti-E. No additio nal alloantibodies detected.* [facility] *Due to the presence of alloantibody(ies) additional time is required for [facility] preparation of [employer]. HOSPITAL LABORATORY See initial antibody identification report for additional in formation. Specimen Anatomical Collection Method Collection Time Receive d Time (Source) Location / / Volume Laterality Blood Venous Draw / 11/17/2021 8:00 AM 11/17/19 8:16 Unknown EST AM EST Resulting Agency Comment Spec In Lab Anam PAULINO BLOOD BANK ORDERABLES Performing Organization Address City/State/[place] [address] ABORh Type Manual (11/17/2021 8:00 AM EST) [facility] gist Method Time Signature Expires at 11/20/[address] [facility] [id number] on: [facility] ABORh Type O Pos [facility] Specimen Anatomical Collection Method Collection Time Receive d Time (Source) Location / / Volume Laterality Blood Venous Draw / 11/17/2021 8:00 AM 11/17/19 8:16 Unknown EST AM EST Resulting Agency Comment Spec In Lab Anam Moseley [place] B[facility] B[facility] ORDERABLES Performing Organization Address City/State/[place] [address] SCAN DOC: IMPLANTABLE DEVICES (11/17/2021 12:00 AM EST) Narrative This result has an attachment that is no t available. Unknown MEDIA MGR SCAN EXT ORDR/RSLT documented in this encounter Visit Diagnoses Diagnosis S/P TAVR (transcatheter aortic valve rep lacement) - Primary Severe aortic stenosis Aortic valve disorders Aortic valve stenosis, etiology of cardi ac valve disease unspecified LBBB (left bundle branch block) Other left bundle branch block Severe aortic stenosis Aortic valve disorders S/P TAVR (transcatheter aortic valve rep lacement) documented in this encounter Admitting Diagnoses Diagnosis Aortic valve stenosis Aortic valve disorders documented in this encounter Administered Medications Inactive Administered Medications - up to 3 most recent administrations Medication Order MAR Action Action Date Dose Rate Site acetaminophen (Tylenol) tablet Given 11/18/2021 5:45 AM EST 1,00 0 mg 1,000 mg 1,000 mg, Oral, EVERY 6 HOURS PRN, Starting on 11/17/21 at 1535, Until 11/19/21 at 1338, Pain, For pain when taking by mouth. Maximum dose of acetaminophen is 4000 mg from all sources in 24 hours. When ordered for pain, acetaminophen should be given even when other ordered pain medications are indicated., Routine Given 11/17/2021 9:07 PM EST 1,000 mg acetaminophen (Tylenol) tablet 650 mg Given 11/17/2021 12:38 PM EST 650 mg 650 mg, Oral, EVERY 6 HOURS PRN, Starting on Sat11/17/21 at 1129, Until Sat11/17/21 at 1528, Pain, Mild Pain (1-3) , Cath (Recovery-Hospital Unit), Routine amLODIPine (Norvasc) tablet 5 mg Given 11/19/2021 9:54 AM EST 5 mg 5 mg, Oral, DAILY, First dose on 11/18/21 at 1145, Until Discontinued, Routine Given 11/18/2021 11:28 AM EST 5 mg aspirin chewable tablet 81 mg Given 11/19/2021 9:53 AM EST 81 mg 81 mg, Oral, DAILY, First dose on 11/18/21 at 0900, Until Discontinued, Routine Given 11/18/2021 8:19 AM EST 81 mg escitalopram (Lexapro) tablet 10 mg Given 11/19/2021 9:53 AM EST 10 mg 10 mg, Oral, DAILY, First dose on 11/18/21 at 0900, Until Discontinued, Routine Given 11/18/2021 8:19 AM EST 10 mg lidocaine (Xylocaine) 1% (10 mg/mL) injection 3 Given 11/17/2021 7:55 AM EST 3 mg mg 3 mg (0.3 mL), Subcutaneous, ONCE PRN, 1 dose, Starting on Sat11/17/21 at 0743, Until Sat11/17/21 at 0755, for discomfort with PIV insertion, Day of Surgery (Day of Procedure), Routine losartan (Cozaar) tablet 25 mg Given 11/19/2021 9:54 AM EST 25 mg 25 mg, Oral, DAILY, First dose on 11/19/21 at 0945, Until Discontinued, Routine ondansetron (pf) (Zofran) (2 mg/mL) inje ction 4 mg 4 mg, Intravenous, EVERY 8 HOURS PRN, Starting on 11/18/21 at 0247, Until 11/19/21 at 1338, Nausea potassium chloride ER (K-Dur/Klor-Con) tablet Given 6:57 AM EST 30 mEq 30 mEq 30 mEq, Oral, ONCE, 1 dose, On 11/18/21 at 0730, Routine predniSONE (Deltasone) tablet 2 mg Given 11/19/2021 9:53 AM EST 2 mg 2 mg, Oral, DAILY, First dose on 11/18/21 at 0900, Until Discontinued, Routine Given 11/18/2021 8:22 AM EST 2 mg predniSONE (Deltasone) tablet 5 mg Given 11/19/2021 9:53 AM EST 5 mg 5 mg, Oral, DAILY, First dose on 11/18/21 at 0900, Until Discontinued, In addition to 2 mg tablet, Routine Given 11/18/2021 8:22 AM EST 5 mg sodium chloride 0.9 % (flush) (BD PosiFlush Given 11/19/2021 9:5 5 AM EST 5 mLs Normal Saline 0.9) flush 5 mL 5 mL, Intravenous, 2 TIMES DAILY, First dose on Sat11/17/21 at 2100, Until Discontinued, Routine Given 11/18/2021 9:00 PM EST 5 mLs Given 11/18/2021 8:24 AM EST 5 mLs documented in this encounter Active and Recently Administered Medications Times are shown in EST. Scheduled Medication Order 11/17/2021 11/18/2021 11/19/2021 amLODIPine (Norvasc) tablet 5 mg 1128 (G iven - Provider: Jaclyn Kumar RN) 0954 (Given - Provider: Jaclyn trimble RN) 5 mg, Oral, DAILY, First dose on Sat 11/18 at 1145, Until Discontinued, Routine aspirin chewable tablet 81 mg 0819 (Given - Prov ider: Jaclyn Kumar RN) 0953 (Given - Provider: Jaclyn Kumar RN) 81 mg, Oral, DAILY, First dose on 11/18/21 at 0900, Until Discontinued, Routine escitalopram (Lexapro) tablet 10 mg 08 (Given - Provider: Jaclyn Kumar RN) 0953 (Given - Provider: Jaclyn trimble RN) 10 mg, Oral, DAILY, First dose on 11/18/21 at 0900, Until Discontinued, Routine losartan (Cozaar) tablet 25 mg 0 954 (Given - Provider: Jaclyn Kumar RN) 25 mg, Oral, DAILY, First dose on 11/19/21 at 0945, Until Discontinued, Routine magnesium hydroxide (Milk of Magnesia) (240 mg/mL) oral liquid 1 0 mL 0900 (Not Given - Provider: Jaclyn Kumar RN - Reason: Patient/family refused) 10 mL, Oral, DAILY, First dose on 11/19/21 at 0900, Until Discontinued, Post- op day 2. Do not use with renal insufficiency., Routine potassium chloride ER (K-Dur/Klor-Con) tablet 30 mEq (COMPLE APRIL) 0657 (Given - Provider: Christian Fisher RN) 30 mEq, Oral, ONCE, 1 dose, On 11/18/21 at 0730, Routine predniSONE (Deltasone) tablet 2 mg 08 (Given - Provider: Jaclyn Kumar RN) 0953 (Given - Provider: Jaclyn trimble RN) 2 mg, Oral, DAILY, First dose on Sat 11/18 at 0900, Until Discontinued, Routine predniSONE (Deltasone) tablet 5 mg 08 (Given - Provider: Jaclyn Kumar RN) 0953 (Given - Provider: Jaclyn trimble RN) 5 mg, Oral, DAILY, First dose on Sat 11/18 at 0900, Until Discontinued, In addition to 2 mg tablet, Routine senna-docusate (Pericolace) 8.6-50 mg per tablet 2 tablet 2099 (Not Given - Provider: Christian Fisher RN - Reason: Patient/family refused) 2 tablet, Oral, DAILY, First dose on 11/18/21 at 2100, Until Discontinued, Post-op day 1, Routine sodium chloride 0.9 % (flush) (BD PosiFlush Normal Frandy ine 0.9) flush 5 mL 2106 (Given - Provider: Christian Fisher RN) 0824 (Given - Provider: Jaclyn Kumar RN)2100 (Given - Provider: Christian Fisher RN) 0955 (Given - Provider: Jaclyn Kumar RN) 5 mL, Intravenous, 2 TIMES DAILY, First dose on Sat11/17/21 at 2100, Until Discontinued, Routine PRN Medication Order 11/17/2021 11/18/2021 11/19/2021 acetaminophen (Tylenol) tablet 1,000 mg 2107 (Given - Provider: Christian Fisher, RN) 0545 (Given - Provider: Christian Fisher, DAVE) 1,000 mg, Oral, EVERY 6 HOURS PRN, Start ing on 11/17/21 at 1535, Until 11/19/21 at 1338, Pain, For pain when taking by mouth. Maximum dose of acetaminophen is 4000 mg from all sources in 24 hours. W hen ordered for pain, acetaminophen shou ld be given even when other ordered pain medications are indicated., Routine acetaminophen (Tylenol) tablet 650 mg (CANCELED) 1238 (Given - Provider: Issac Garcia RN) 650 mg, Oral, EVERY 6 HOURS PRN, Startin g on Sat11/17/21 at 1129, Until 11/17/21 at 1528, Pain, Mild Pain (1-3) , Cath (Recovery-Hospital Unit), Routine bisacodyL (Dulcolax) suppository 10 mg 10 mg, Rectal, DAILY PRN, Starting on Mo n 11/20/21 at 0000, Until 11/19/21 at 1338, Constipation, Starting post-op day 3., Routine lidocaine (Xylocaine) 1% (10 mg/mL) injection 3 mg (CO MPLETED) 0755 (Given - Provider: Greer Post RN) 3 mg (0.3 mL), Subcutaneous, ONCE PRN, 1 dose, Starting on Sat11/17/21 at 0743, Until Discontinued, for discomfort with PIV insertion, Day of Surgery (Day of Procedure), Routine ondansetron (pf) (Zofran) (2 mg/mL) injection 4 mg 4 mg, Intravenous, EVERY 8 HOURS PRN, St arting on 11/18/21 at 0247, Until 11/19/21 at 1338, Nausea documented in this encounter Care Teams Boilermaker Welder Relationship Specialty Start Date End Date Zoey Lucas MD PCP - General 09/05/[address] [place] [address] [address] [place] [address] documented as of this encounter
--- OUTSIDE RECORDS SUMMARY | 2022-07-27 00:16 | XMS_ITS | Encounter Summary ---
:1940 Author Organization [facility] Address [address] [place] [address] Care Team Providers Name Role Phone Zoey Lucas MD Primary Care Provider Encounter Details Date Type Department Care Team Description 01/19/2022 Office Visit Cardiology at [facility] S/P TAVR (transcatheter [facility] D estefany aortic valve replacement) [place] [address] Social History Tobacco Use Types Packs/Day [...] documented as of this encounter Progress Notes Re Randle LNA - 01/19/2022 3:50 PM EDT S/p TAVR 30D f/u EKG, [facility] documented in this encounter Plan of Treatment Not on filedocumented as of this encounter Visit Diagnoses Diagnosis S/P TAVR (transcatheter aortic valve rep lacement) documented in this encounter Care Teams Installers Mechanical Relationship Specialty Start Date End Date Zoey Lucas MD PCP - General 09/05/[address] [place], [place] [address] [place] [address] documented as of this encounter
--- OUTSIDE RECORDS SUMMARY | 2022-07-27 00:16 | XMS_ITS | Encounter Summary ---
:1940 Author Organization [facility] Address [address] [place] [address] Care Team Providers Name Role Phone Zoey Lucas MD Primary Care Provider Encounter Details Date Type Department Care Team Description 11/21/2021 Telephone Cardiology [place] [facility] Corrine Plata, MERVAT [facility] Lizet carbajal [facility] [place] [address] [place] [address] [phone] (Wo rk) Social History Tobacco Use Types [...] this encounter Miscellaneous Notes Telephone Encounter - Corrine Plata APRN - 11/21/2021 5:40 PM EST Attempted to call patient back regarding her concerns for elevated BP. No answer, left voicemail with our call back number. She is currently on amlodipine 5 mg and losartan 25 mg either which could be titrated if elevated BP persists. She should be followed up closely by her PCP. Additionally, low threshold for ED visit if BP remains elevated despite medication titration. documented in this encounter Plan of Treatment Not on filedocumented as of this encounter Visit Diagnoses Not on filedocumented in this encounter Care Teams Computer Aided Design Operator Relationship Specialty Start Date End Date Zoey Lucas MD PCP - General 09/05/10 [facility] [address] [place] [address] documented as of this encounter
--- OUTSIDE RECORDS SUMMARY | 2022-07-27 00:16 | XMS_ITS | Encounter Summary ---
:1940 [place] [address] Care Team Providers Name Role Phone Zoey Lucas MD Primary Care Provider Encounter Details Date Type Department Care Team Description 01/19/2022 Laboratory Appointment Lab 3L [facility] S[facility]P [facility] (transcatheter aortic [facility] valve rep lacement) [place] [id number] Social History Tobacco Use Types Packs/Day Years [...] Procedure Name Priority Date/Time Associated Comments Diagnosis HEMOGRAM Routine 01/19/2022 1:51 PM S/P TAVR Results f or this EDT (transcatheter procedure are in aortic valve the results replacement) section. DIFFERENTIAL, Routine 01/19/2022 1:51 PM S/P TAVR Results for this AUTOMATED EDT (transcatheter procedure are in aortic valve the results replacement) section. HC VENIPUNCTURE Routine 01/19/2022 1:51 PM S/P TAVR EDT (transcatheter aortic valve replacement) COMPREHENSIVE Routine 01/19/2022 1:51 PM S/P TAVR Results for this METABOLIC PANEL EDT (transcatheter procedure are in (NON-FASTING) aortic valve the results replacement) section. documented in this encounter Results (ABNORMAL) Differential, Automated (01/19/2022 1:51 PM EDT) [facility] gist Method Time Signature Neutrophils % 81.0 % [facility] Neutr Abs (ANC) 7.45 (H) 1.70 - [facility] 6.10 [facility] x10(3)/[facility] LABORATORY Lymphocytes % 12.7 % [facility] Lymphocytes Abs 1.2 0.9 - 3.2 [facility] x10(3)/[facility] LABORATORY Monocytes % 4.5 % [facility] Monocyte Abs 0.4 0.3 - 0.9 [facility] x10(3)/[facility] LABORATORY Eosinophils % 0.1 % [facility] Eosinophils Abs 0.0 0.0 - 0.4 [facility] x10(3)/[facility] LABORATORY Basophils % 0.8 % [facility] Basophils Abs 0.1 0.0 - 0.1 [facility] x10(3)/[facility] LABORATORY Immature Gran % 0.90 % [facility] Comment: Immature granulocytes(IG's)percentage an d absolute count will include metamyelocytes, myelocytes, and promyelo cytes. Blood smears from CBCs yielding IG's will be scanned manually for concor dance. If this scan disagrees with the automated IG or if promyelocytes are not ed, a manual differential will be performed. Lida Gran Abs 0.08 (H) 0.00 - 0.04 x10(3)/[facility] LABORATORY Specimen Anatomical Collection Method Collection Time Receive d Time (Source) Location / / Volume Laterality Blood 01/19/2022 1:51 PM 2:15 EDT PM EDT Resulting Agency Comment Spec In Lab Charlene PAULINO HEMATOLOGY ORDERABLES Performing Organization Address City/State/[place] [address] (ABNORMAL) Hemogram (01/19/2022 1:51 PM EDT) Analysis Performed At Patho logist Time Signature WBC 9.2 4.0 - 9.5 [facility] x10(3)/[facility] LABORATORY RBC 3.96 (L) 4.00 - [facility] 5.21 [facility] x10(6)/[facility] LABORATORY Hemoglobin 12.0 11.7 - [facility] 15.5 g/dL [facility] Hematocrit 37.3 35.7 - [facility] 45.8 % [facility] MCV 94.2 82.6 - [facility] 94.4 [facility] LABORATORY MCH 30.3 27.1 - [facility] 32.0 pg [facility] MCHC 32.2 31.7 - [facility] 35.0 g/dL [facility] Platelets 237 145 - 357 [facility] x10(3)/[facility] LABORATORY RDWSD 46.7 (H) 37.0 - [facility] 46.0 [facility] LABORATORY RDWCV 13.5 11.5 - [facility] 14.1 % [facility] MPV 11.2 7.6 - 12.9 [facility] LABORATORY nRBC % Auto 0.0 % [facility] nRBC Abs Auto 0.000 0.000 - [facility] 0.000 [facility] x10(3)/[facility] LABORATORY Specimen Anatomical Collection Method Collection Time Receive d Time (Source) Location / / Volume Laterality Blood 01/19/2022 1:51 PM 2 2:15 EDT PM EDT Resulting Agency Comment Spec In Lab Charlene PAULINO HEMATOLOGY ORDERABLES Performing Organization Address City/State/[place] [address] (ABNORMAL) Comprehensive metabolic panel (non-fasting) (01/19/2022 1:51 PM EDT) athologist Signature Glucose Lvl 135 65 - 199 [facility] mg/dL [facility] Comment: Diabetes: >=200 mg/dL plus symp toms BUN 34 (H) 8 - 18 mg/dL [facility] Creatinine 1.51 (H) 0.70 - 1.20 mg/dL [facility] Sodium 139 135 - 145 mmol/L [facility] Potassium 4.1 3.5 - 5.0 mmol/L [facility] Comment: Please note: ??Patients with WBC >100,00 0 may have falsely elevated Potassium levels. ??For accurate Potassium quantif ication in these patients send serum separator tube (gold top) for subsequent determinations. ??Contact the Clinical Chemistry Laboratory if there are any qu estions. Chloride 99 98 - 107 mmol/L [facility] CO2 28 22 - 31 mmol/L [facility] Anion Gap 12 5 - 15 mmol/L [facility] Calcium 10.4 8.5 - 10.5 mg/dL [facility] Total Protein 7.4 6.1 - 8.0 g/dL [facility] Albumin 4.7 3.2 - 5.2 g/dL [facility] AST 16 0 - 30 unit/L [facility] ALT 22 0 - 30 unit/L [facility] Alk Phos 44 35 - 105 unit/L [facility] Total Bilirubin 1.0 0.2 - 1.3 mg/dL [facility] Estimated GFR 32 (L) >=60 mL/min/1.73 m?? [facility] Comment: This patient? s estimated [...] Organization Address City/State/[place] [address] documented in this encounter Visit Diagnoses Diagnosis S/P TAVR (transcatheter aortic valve rep lacement) documented in this encounter Care Teams Air Brush Operator Relationship Specialty Start Date End Date Zoey Lucas MD PCP - General 09/05/[address] [place] [address] documented as of this encounter
--- OUTSIDE RECORDS SUMMARY | 2022-07-27 00:16 | XMS_ITS | Encounter Summary ---
:1940 Author Organization [facility] Address [address] [place] [address] Care Team Providers Name Role Phone Zoey Lucas MD Primary Care Provider Encounter Details Date Type Department Care Team Description 03/08/2022 Orders Only Pain and Spine Center Janes Salazar L umbar spondylosis (Primary Dx); at [facility] Chronic left-sided low back pain without sciatica [place] [address] PAIN MANAGEMENT [phone] [place], [place] [address] Social History Tobacco Use Types [...] as of this encounter Visit Diagnoses Diagnosis Lumbar spondylosis - Primary Lumbosacral spondylosis without myelopat hy Chronic left-sided low back pain without sciatica documented in this encounter Care Teams Sales And Marketing Executive Relationship Specialty Start Date End Date Zoey Lucas MD PCP - General 09/05/[address] [place] [address] documented as of this encounter
--- OUTSIDE RECORDS SUMMARY | 2022-07-27 00:16 | XMS_ITS | Encounter Summary ---
:1940 Author Organization [facility] [place] [address] Care Team Providers Name Role Phone Zoey Lucas MD Primary Care Provider Reason for Visit Reason Comments Follow-up Encounter Details Date Type Department Care Team Description 03/08/2022 TH Visit Pain and Spine Center Clary Castillo C luneal neuropathy (TeleHealth) at [facility] DIP STAND LOADER [facility] [address] [place] [facility] [id number] [place] [address] [phone] Social History Tobacco Use Types Packs/Day Years [...] Sign Reading Time Taken Comments Blood Pressure - - Pulse - - Temperature - - Respiratory Rate - - Oxygen Saturation - - Inhaled Oxygen Concentration - - Weight 76.7 kg (169 lb) 03/08/2022 10:44 AM EDT Height 160 cm (5' 3) 03/08/2022 10:44 AM EDT Body Mass Index 29.94 03/08/2022 10:44 AM EDT documented in this encounter Progress Notes Clary Castillo, DIP STAND LOADER - 03/08/2022 12:45 PM EDT Images from the original note were not included. [facility] Date of Consultation: March 07, 2022 Referring Provider: Zoey Lucas Reason for request of consultation: Left sided low back pain Chief Complaint: increasing low back pain on the left Updated interval history: 03/08/2022 I did a [...] of Present Illness: Ms. Joe is a 81 y.o. year-old female who presents to the pain clinic seen as a scheduled, shared visit with Dr Salazar. The patient reports that she has had chronic back pain for many many years. 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 She lives in [facility]. She likes to garden and she has [...] point where she needs to see a roofing machine tender which she is seeing on the . She also has a history of osteoporosis. She really does not have any leg symptoms. There is no symptoms of weakness and the pain is limited to the left side of the low back. PAIN ASSESSMENT: Description:left low back pain Like [...] or lying down Worst in past week:9/10 No flowsheet data found. 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 Allergies & Adverse Reactions: Red blood cells, Beta-blockers (beta-adrenergic blocking agts), Doxazosin mesylate, Lisinopril, and Nickel Problem List: Patient Active Problem List Diagnosis Code ??? 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 Aortic stenosis, severe I35.0 ??? CAD (coronary artery disease) I25.10 ??? 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 Marital status: Spouse name: Not on file ??? Number of children: Not on file ??? Years of education: Not on file ??? Highest education level: Not on file Occupational History ??? Occupation: retired from [employer] Tobacco Use ??? Smoking status: Former Smoker Quit date: 10/20/1983 Years since quittin.4 ??? Smokeless tobacco: Never Used Substance and [...] Hypertension ??? Skin disease Past Surgical History: Past [...] 11.08) performed by Primo Rodríguez MD at [facility] ? ? PRO INJECTION ANES AGENT &/OR STEROID OTHER PERIPHERAL NERVE/BRANCH Left 02/13/2022 NERVE BLOCK, OTHER PERIPHERAL NERVE OR BRANCH (WRVU 0.75) performed by Janes Salazar MD at [facility] ??? PRO TEMPORAL ARTERY LIGATN OR BX Bilateral 10/25/2015 LIGATION OR BIOPSY, TEMPORAL ARTERY performed by Sukhdev Bhatti MD at [facility] MAIN OR ??? YAG CAPSULOTOMY Right 03/20/2019 SK Review of Systems: Denies fever, chills, weight loss, + SOB, abdominal pain, leg weakness/numbnes, arm weakness/numbness, bowel or bladder incontinence, balance issues + weight gain ( 20 pounds with steroids), uses a cane for safety ( lives alone and promised children) RISK ASSESSMENT: Smoking:no Alcohol:no Imaging & Other Studies: Assessment: Ms. Joe is a 81 y.o. year-old female who presents to the [facility] for [facility] Spine clinic. We are following up regarding her cluneal nerve and first medial branch block on the left. The cluneal nerve pain has gone and the medial branch block alleviated her pain for 2 days. She should proceed to a second medial branch block and if appropriate to a radiofrequency. If she does not have a good response to the medial branch block then she would need to come in for further evaluation of this left-sided low back pain. She verbalizes an understanding of this. I will communicate with the nurse of they can documented elsewhere in the note. All questions were answered. Clary Castillo, MS, ORACLE ADF CONSULTANT-BC, DIP STAND LOADER Nurse practitioner Pain management [facility] documented in this encounter Plan of Treatment Not on filedocumented as of this encounter Visit Diagnoses Diagnosis Cluneal neuropathy documented in this encounter Care Teams Ehs Engineer Relationship Specialty Start Date End Date Zoey Lucas MD PCP - General 09/05/[address] [place] [address] documented as of this encounter
--- OUTSIDE RECORDS SUMMARY | 2022-07-27 00:16 | XMS_ITS | Encounter Summary ---
:1940 Author Organization [facility] [place] [address] Care Team Providers Name Role Phone Zoey Lucas MD Primary Care Provider Encounter Details Date Type Department Care Team Description 04/10/2022 Telephone Pain and Spine Ned serrato [place] [facility] [place] [address] Social History Tobacco Use Types Packs/Day [...] Telephone Encounter - Jadyn Shaffer RN - 04/10/2022 8:44 AM EDT Out going call to tell Ruthie that Anabela Castillo APRN would like her to come in for a clinic appointment to go over what the next steps should be. Transferred the call to the schedulers. documented in this encounter Plan of Treatment Not on filedocumented as of this encounter Visit Diagnoses Not on filedocumented in this encounter Care Teams Diplomatic Interpreter Relationship Specialty Start Date End Date Zoey Lucas MD PCP - General 09/05/[address] [place] [address] [address] [place] [address] documented as of this encounter
--- OUTSIDE RECORDS SUMMARY | 2022-07-27 00:16 | XMS_ITS | Encounter Summary ---
:1940 Author Organization [facility] [place] [address] Care Team Providers Name Role Phone Zoey Lucas MD Primary Care Provider Reason for Visit Auth/Cert Specialty Diagnoses / Procedures Referred By Contact Refer red To Contact Diagnoses Chronic left-sided low back pain without sciatica cluneal nerve impingment Janes Salazar MD Procedures PRO INJECTION ANES AGENT &/OR STEROID OTHER PERIPHERAL NERVE/BRANCH [facility] [place] [place], [place] [address] Phone: Fax: Referral ID Status Reason Start Date Expiration Date Visits Requ ested Visits Authorized [id number] 01/26/2022 1 1 Encounter Details Date Type Department Care Team Description 02/13/2022 Surgery Pain Management Mina Cullen MD NERVE BLOCK, OTHER [facility] PER IPHERAL NERVE OR [facility] DR NICHOLS (WRVU 0.75) [facility] [place] [address] [place] [address] [phone] Social History Tobacco Use Types Packs/Day Years [...] Sign Reading Time Taken Comments Blood Pressure 158/58 02/13/2022 9:18 AM EDT Pulse - - Temperature - - Respiratory Rate 21 02/13/2022 9:18 AM EDT Oxygen Saturation 95% 02/13/2022 9:50 AM EDT Inhaled Oxygen Concentration - - Weight 77.1 kg (170 lb) 02/13/2022 9:18 AM EDT Height 160 cm (5' 3) 02/13/2022 9:18 AM EDT Body Mass Index 30.11 02/13/2022 9:18 AM EDT documented in this encounter Discharge Instructions Discharge InstructionsAmy Dennis - 02/13/2022 9:26 AM EDT Pain Management Center Discharge Instructions: You were seen today by Surgeon(s): Janes Salazar MD The following was performed: Procedure(s) (LRB): NERVE BLOCK, OTHER PERIPHERAL NERVE OR BRANCH (WRVU 0.75) (Left) It is normal that the injection [...] your bladder 4-6 hours after your procedure. {CHECK BOX SELECTION:12674} If you have diabetes, monitor your blood sugars frequently. If your blood sugar increases and is of concern, contact your Primary Care Provider. You received the following medications: Medications Given During Procedure Date/Time Order Dose Route Action 02/13/2022 0954 BUpivacaine (pf) (Marcaine) (2.5 mg/mL) 0.25% injection 5 mL Intra-articular Given 02/13/2022 0955 iohexoL (Omnipaque) (240 mg/mL) solution 2 mL Intra-articular Given 02/13/2022 0955 lidocaine (pf) (Xylocaine) (10 mg/mL) 1% injection 1 mL Subcutaneous Given 02/13/2022 0955 methylPREDNISolone acetate (DEPO-Medrol) (40 mg/mL) injection 40 mg Intra-articularGiven During regular business hours, please phone the [...] or proceed to your local emergency department. AMY DENNIS Special instructions Pain Management Center Post -Procedure Pain Log Patient: Zeny Joe [id number] It is important for you to keep track of your pain after your procedure that took place 02/13/22. Thisinformation will help your Provider determine the next steps for how to help reduce your pain. Today you had a procedure for pain in your back Your pain level before the procedure in this area was 8/10. Your pain level immediately after your procedure was /10. Time 11:00 Pain Score # Comments 1 hour 12:00 2 hours 1:00 3 hours 2:00 4 hours 3:00 The Pain Clinic Fiscal Clerk Nurse will call you within a week of your procedure to ask about your response to the procedure and help with the next steps. If you need to reach the Fiscal Clerk you can call: [phone]. documented in this encounter Medications at Time [...] encounter H&P Notes Janes Salazar MD - 02/13/2022 9:24 AM EDT Patient Name: Zeny Joe Patient Age: 81 y.o. Birthdate: 1940 Admit date: 02/13/2022 Attending Physician: Janes Salazar MD PREPROCEDURE HISTORY AND PHYSICAL Date of Visit: February 13, 2022 Chief Complaint: Left low back pain HPI: Subjective Zeny Joe is a 81 y.o. female who presents today for left cluneal nerve blocks. The history is obtained from the patient, and I have reviewed medical records provided by the referring physician and located in the electronic medical record to fill in gaps in the patient's recollection of events, treatments and outcomes. LOCATION: left lumbar area. PAIN LEVEL AT REST 05/23 PAST MEDICAL HISTORY: Past Medical History: Diagnosis [...] 11.08) performed by Primo Rodríguez MD at [facility] OSC ??? PRO TEMPORAL ARTERY LIGATN OR BX Bilateral 10/25/2015 LIGATION OR BIOPSY, TEMPORAL ARTERY performed by Sukhdev Bhatti MD at [facility] MAIN OR ??? YAG CAPSULOTOMY Right 03/20/2019 SK ALLERGIES: Red blood cells, Beta-blockers (beta-adrenergic blocking agts), Doxazosin mesylate, Lisinopril, and Nickel MEDICATIONS: Medications 02/13/22 0921 Medication Sig Taking? hydroCHLOROthiazide (Hydrodiuril) 25 mg [...] Tablet Take 2 mg by mouth daily. Yes predniSONE (DELTASONE) 5 mg Tablet Take 5 mg by mouth daily. Yes aspirin 81 mg Tablet, Chewable Take 81 mg by mouth daily. Yes escitalopram oxalate (LEXAPRO) 10 mg Tablet Take 10 mg by mouth daily. Yes CALCIUM CARBONATE/VITAMIN D3 (VITAMIN D-3 ORAL) Take 1,200 mg by mouth daily. Yes hydrocortisone 2.5 % cream 1 Appl(s), Top, Twice daily Yes triamcinolone (KENALOG) 0.1 % ointment Apply topically as needed. Patient taking differently: Apply topically as needed. Yes amoxicillin (Amoxil) 500 mg Capsule Take 4 capsules by mouth as needed (Take 4 tabs prior to dental procedures (2000 mg)). FAMILY HISTORY: Family History Problem Relation Age [...] file Occupational History ??? Occupation: retired from [employer] Tobacco Use ??? Smoking status: Former Smoker Quit date: 10/20/1983 Years since quittin.3 ??? Smokeless tobacco: Never Used Substance and [...] Stability: Not on file ROS: Patient denies recent fevers, chills, infections, wounds, hospitalizations, ED visits or antibioticsuse PHYSICAL EXAM: BP 158/58 Resp 21 Ht 160 cm (5' 3) Wt 77.1 kg (170 lb) LMP (LMP Unknown) SpO2 (!) 7% BMI 30.11 kg/m?? CV: RRR Pulm: CTA B Skin: No concerning infection, erythema or warmth near the procedure site ASSESSMENT: Assessment Left cluneal neuralgia / neuropathy Zeny Joe is a 81 y.o. female who presents today for the above procedure. Risks and benefits were discussed with the patient and all questions answered. There are no contraindications to proceed. PLAN: Proceed with left cluneal nerve block procedure as planned. Janes Salazar MD 02/13/2022 documented in this encounter Miscellaneous Notes Op Note - Janes Salazar MD - 02/13/2022 9:54 AM EDT Pain Management Operative Note Patient Name: Zeny Joe : [id number] MR#: [id number] Case Date: 02/13/2022 Surgeon: Surgeon(s) and Role: * Janes Salazar MD - Primary Present on Admission: ??? Cluneal neuropathy Postoperative diagnosis: Same Procedure(s) (LRB): NERVE BLOCK, OTHER PERIPHERAL NERVE OR BRANCH (WRVU 0.75) (Left) PROCEDURE NOTE LEFT CLUNEAL NERVE BLOCK Date of Service: 01/26/2022 Patient: Zeny Joe Referring Physician: Zoey Lucas Md [address] [place] [id number] 1. Chronic left-sided low back pain without sciatica Today's Operative Note Zeny Joe was greeted by the nurse who verified the patients name and . Patient was then taken to the fluoroscopy suite. Ms. Joe was interviewed and the medical record was reviewed. There were no medical contraindications to performing the left cluneal nerve blocks I first had a talk with the patient and discussed the potential risks, benefits, side effects, and alternatives of this procedure including but not limited to increased pain from the procedure, no pain relief, nerve damage, infection, and bleeding. she comprehended my conversation and accepts the risks and understands the goals of this diagnostic procedure. All questions and concerns from the patient were addressed. After I was comfortable that the patient was fully informed about this procedure, the printed consent form was signed. Standard time-out procedure was performed Ms. Joe was placed in the prone position on the fluoroscopy table and automated blood pressure cuffand pulse oximeter were applied. The anatomic target points of the segmental medial branches of the left cluneal nerves were identified with fluoroscopy. Following thorough Chlorhexadine preparation ofthe skin and draping, a 25 gauge 3.5 spinal needle was placed under fluoroscopic guidance down on to the target point for each respective cluneal nerve along the left iliac crest.Position was confirmed in A/P, oblique and lateral views and a total of 1ml of Omnipaque was used in 3 divided doses to confirm a lack of vascular uptake. Next a total of 5ml of 0.25% bupivacaine and 40mg Depomedrol was inje cted in divided doses along the three locations. Ms. Joe's vital signs were stable throughout the procedure and were as recorded in the docflowsheetby the nursing staff. Next, she was asked to recordher percent pain relief and any changes in provocative maneuvers for the next 4 hours. She will report this information at the next business day to one of our nurses. Discharge plan:: She will call back with her 0-4 hour post-procedure pain scores. I personally performed the entire procedure. Janes Salazar MD CC: Zoey Lucas MD [address] [place] [address] [address] documented in this encounter Plan of Treatment Not on filedocumented as of this encounter Procedures Procedure Name Priority Date/Time Associated Diagnosis Comme nts NERVE BLOCK, OTHER 02/13/2022 9:48 AM EDT Chronic left -sided low PERIPHERAL NERVE OR back pain without BRANCH (WRVU 0.75) sciatica NERVE BLOCK, OTHER Routine 02/13/2022 9:13 AM EDT Chronic left -sided low PERIPHERAL NERVE OR back pain without BRANCH sciatica documented in this encounter Visit Diagnoses Diagnosis Cluneal neuropathy - Primary Chronic left-sided low back pain without sciatica Chronic left-sided low back pain without sciatica documented in this encounter Administered Medications Inactive Administered Medications - up to 3 most recent administrations Medication Order MAR Action Action Date Dose Rate Site BUpivacaine (pf) (Marcaine) (2.5 Given 02/13/2022 9:54 AM EDT 5 mLs mg/mL) 0.25% injection ONCE PRN, Starting on 02/13/22 at 0954, Until 02/13/22 at 1205, Intra-Operative (Intra-Procedure), Routine iohexoL (Omnipaque) (240 mg/mL) solution Given 02/13/2022 9:55 AM EDT 2 mLs ONCE PRN, Starting on 02/13/22 at 0955, Until 02/13/22 at 1205, Intra-Operative (Intra-Procedure), Routine lidocaine (pf) (Xylocaine) (10 mg/mL) 1% Given 02/13/2022 9:55 A M EDT 1 mL injection ONCE PRN, Starting on 02/13/22 at 0955, Until 02/13/22 at 1205, Intra-Operative (Intra-Procedure), Routine methylPREDNISolone acetate (DEPO-Medrol) (40 Given 9:55 AM EDT 40 mg mg/mL) injection ONCE PRN, Starting on 02/13/22 at 0955, Until 02/13/22 at 1205, Intra-Operative (Intra-Procedure), Routine documented in this encounter Active and Recently Administered Medications Times are shown in EDT. PRN Medication Order 02/11/2022 02/12/2022 02/13/2022 BUpivacaine (pf) (Marcaine) (2.5 mg/mL) 0.25% injection (CANCELE D) 953 (Given - Provider: Janes Salazar MD) ONCE PRN, Starting on 02/13/22 at 0954 , Until 02/13/22 at 1205, Intra- Operative (Intra-Procedure), Routine iohexoL (Omnipaque) (240 mg/mL) solution (CANCELED) 954 (Given - Provider: Janes Salazar MD) ONCE PRN, Starting on Sat02/13/22 at 0955 , Until Tu02/13/22 at 1205, Intra- Operative (Intra-Procedure), Routine lidocaine (pf) (Xylocaine) (10 mg/mL) 1% injection (CANCELED) 954 (Given - Provider: Janes Salazar MD) ONCE PRN, Starting on Sat02/13/22 at 0955 , Until Tu02/13/22 at 1205, Intra- Operative (Intra-Procedure), Routine methylPREDNISolone acetate (DEPO-Medrol) (40 mg/mL) injection (C ANCELED) 954 (Given - Provider: Janes Salazar MD) ONCE PRN, Starting on Sat02/13/22 at 0955 , Until Sat02/13/22 at 1205, Intra- Operative (Intra-Procedure), Routine documented in this encounter Care Teams Violin Restorer Relationship Specialty Start Date End Date Zoey Lucas MD PCP - General 09/05/[address] [place] [address] [address] [place] [address] documented as of this encounter
--- OUTSIDE RECORDS SUMMARY | 2022-07-27 00:16 | XMS_ITS | Encounter Summary ---
:1940 Author Organization [facility] [place] [address] Care Team Providers Name Role Phone Zoey Lucas MD Primary Care Provider Encounter Details Date Type Department Care Team Description 12/01/2021 Telephone Pain and Spine Ned serrato [place] [facility] [place] [address] Social History Tobacco Use Types Packs/Day [...] Telephone Encounter - Jadyn Shaffer RN - 12/01/2021 4:01 PM EST Procedure Requested: Left Cluniel Nerve Block What is your current Pain Score (1-10 range)? 8-9/10 Pain Asmt (include sidedness, characteristics & distribution): Same as when she was seen before Pertinent Medical History - h/o Thrombocytopenia/bleeding tendency/platelet dysfunction: no - h/o Liver disease; abnormal liver function: no - h/o Chronic kidney disease (CKD); abnormal kidney function: no only one Kidney - Patient on dialysis? no - Patient has pacemaker/defibrillator: no Is patient taking an anticoagulant? None Is patient taking any NSAIDS/supplements? None Is patient taking aspirin? yes If yes, is it prescribed? yes If yes, what reason is it prescribed? Is patient taking Antibiotics? No Has patient been on greater than 40mg of steroid 14 days or longer? No Has patient had any steroid injections anywhere in his/her body within the last two weeks? No Does patient need sedation? no Does patient need NPO guidelines? no Does patient have allergies to contrast/local anesthetic/steroid? No Based on the information provided above and after discussion with the patient, the following actionswill be taken: _x__If no change in pain characteristics or medical history review: pended order for repeat procedure routed to [facility] Provider Jonathan Means documented in this encounter Plan of Treatment Not on filedocumented as of this encounter Visit Diagnoses Not on filedocumented in this encounter Care Teams Self Pay Representative Relationship Specialty Start Date End Date Zoey Lucas MD PCP - General 09/05/[address] [place] [address] documented as of this encounter
--- OUTSIDE RECORDS SUMMARY | 2022-07-27 00:16 | XMS_ITS | Encounter Summary ---
:1940 Author Organization [place] [address] Care Team Providers Name Role Phone Zoey Lucas MD Primary Care Provider Encounter Details Date Type Department Care Team Description 05/04/2022 Telephone Pain and Spine Ned serrato at [facility] Destini Knox, [place] [address] Social History Tobacco Use Types Packs/Day [...] this encounter Miscellaneous Notes Telephone Encounter - Destini Knox, RN - 05/04/2022 12:14 PM EDT Contact made with patient or corporate representative as identified in contacts 1. Patient instructed to arrive at 1000 on 05/09/22 with their food mobile driver for their LESI procedure. Please plan to spend about 2 [...] oral steroids or had a steroid injection Yes, pt takes prednisone 7mg daily g. Does patient have any of the [...] to their procedure. (route telephone note to: [facility] Public Health covid 19 nurse triage with routing comment stating pt needs covid test prior to procedure and give date of procedure, add name and MRN to tracking tool). h. Has the patient's pain resolved or significantly improved such as a rating of 3/10 or less? No 4. Was patient instructed to stop any medications? Yes if yes: a. Name of medication(s): Aspirin 81mg b. Confirm date of last dose: 05/01/22 5. Is patient having a nerve block: No a. If yes instructed to not take [...] IF RFA: Does patient have a pacemaker? N/A a. If yes, document that cardiology was called and notified. 9. Additional notes if applicable: Pt states having a food mobile driver for the procedure. Notified to call clinic if she develops any questions or concerns OR if anything changes from now to the procedure. Patient expressed understanding and agreement with instructions Yes Patient denies further questions Yes documented in this encounter Plan of Treatment Not on filedocumented as of this encounter Visit Diagnoses Not on filedocumented in this encounter Care Teams Stock Preparer Relationship Specialty Start Date End Date Zoey Lucas MD PCP - General 09/05/[address] [place] [address] documented as of this encounter
--- OUTSIDE RECORDS SUMMARY | 2022-07-27 00:16 | XMS_ITS | Encounter Summary ---
:1940 Author Organization [facility] Address [address] [facility] [place] [address] Care Team Providers Name Role Phone Zoey Lucas MD Primary Care Provider Encounter Details Date Type Department Care Team Description 01/26/2022 Orders Only Pain and Spine Center Clary Castillo C hronic left- sided low at [facility] DRY BOX OPERATOR back pain without [facility] [place] [address] PAIN MEDICINE [phone] [place], [place] [address] Social History Tobacco Use Types [...] as of this encounter Visit Diagnoses Diagnosis Chronic left-sided low back pain without sciatica - Primary documented in this encounter Care Teams Certified Technician Relationship Specialty Start Date End Date Zoey Lucas MD PCP - General 09/05/[address] [place] [address] documented as of this encounter
--- OUTSIDE RECORDS SUMMARY | 2022-07-27 00:16 | XMS_ITS | Encounter Summary ---
:1940 Author Organization [facility] [place] [address] Care Team Providers Name Role Phone Zoey Lucas MD Primary Care Provider Reason for Visit Reason Comments Abdominal Pain Pain in Left side Encounter Details Date Type Department Care Team Description 04/12/2022 Office Visit Pain and Spine Center Clary Castillo S david stenosis [place] [facility] QUALITY CONTROL TECHNICIAN lumbar region with [facility] [address] nicole ([place], [place] PAIN MEDICINE Dx) [id number] [place] [address] [phone] Social History Tobacco Use Types Packs/Day Years [...] Sign Reading Time Taken Comments Blood Pressure 152/63 04/12/2022 11:35 AM EDT Pulse 65 04/12/2022 11:35 AM EDT Temperature - - Respiratory Rate - - Oxygen Saturation 100% 04/12/2022 11:35 AM EDT Inhaled Oxygen Concentration - - Weight 77.6 kg (171 lb) 04/12/2022 11:35 AM EDT Height 160 cm (5' 3) 04/12/2022 11:35 AM EDT Body Mass Index 30.29 04/12/2022 11:35 AM EDT documented in this encounter Progress Notes Clary Castillo, QUALITY CONTROL TECHNICIAN - 04/12/2022 11:45 AM EDT Images from the original note were not included. 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 She lives in [facility] [facility]. She likes to garden and she [...] point where she needs to see a tiedown operator which she is seeing on the . [...] have been marked as taking for the 04/12/22 encounter (Appointment) with Clary Castillo APRN. Allergies [...] file Occupational History ??? Occupation: retired from [employer] Tobacco Use ??? Smoking status: Former Smoker Quit date: 10/20/1983 Years since quittin.4 ??? Smokeless tobacco: Never Used Vaping Use [...] 11.08) performed by Primo Rodríguez MD at [facility] ? ? PRO INJECTION ANES AGENT &/OR STEROID OTHER PERIPHERAL NERVE/BRANCH Left 02/13/2022 NERVE BLOCK, OTHER PERIPHERAL NERVE OR BRANCH (WRVU 0.75) [facility] ??? PRO TEMPORAL ARTERY LIGATN OR BX Bilateral 10/25/2015 LIGATION OR BIOPSY, TEMPORAL ARTERY performed by Sukhdev Bhatti MD at [facility] MAIN OR ??? YAG CAPSULOTOMY [...] is a 81 y.o. year-old female who is here for follow-up. Please see the above discussion. Wehave discussed and trial of a epidural steroid injection to see if that will alleviate her symptoms.She is going to follow-up with me afterwards. The risks and benefits were discussed and we will schedule her for an upcoming appointment. Clary Castillo, MS, FIRE PREVENTION INSPECTOR-BC, QUALITY CONTROL TECHNICIAN Nurse practitioner Pain management [facility] documented in this encounter Plan of Treatment Not on filedocumented as of this encounter Visit Diagnoses Diagnosis Spinal stenosis of lumbar region with ne urogenic claudication - Primary Spinal stenosis, lumbar region, with em rogenic claudication documented in this encounter Care Teams Computational Mathematician Relationship Specialty Start Date End Date Zoey Lucas MD PCP - General 09/05/[address] [facility] [address] [place] [address] documented as of this encounter
--- OUTSIDE RECORDS SUMMARY | 2022-07-27 00:16 | XMS_ITS | Encounter Summary ---
:1940 Author Organization [facility] Address 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 [address] [place] [phone] Social History Tobacco Use Types Packs/Day Years [...] documented in this encounter Discharge Instructions Discharge InstructionsEdgardoAmy palacios Snow - 02/13/2022 9:26 AM EDT Pain Management [...] 4-6 hours after your procedure. {CHECK BOX SELECTION:94264} If you have diabetes, monitor your blood [...] Post -Procedure Pain Log Patient: Zeny Joe [id number] It is important for you to keep [...] 2:00 4 hours 3:00 The Pain Clinic Director Machine Nurse will call you within a week of your procedure to ask about your response to the procedure and help with the next steps. If you need to reach the Director Machine you can call: [phone]. documented in this encounter Medications at Time [...] 5 mg Take 1 tablet by 0 02/0 03/2022 Tablet mouth daily. documented as of [...] 11.08) performed by Primo Rodríguez MD at [facility] OSC ??? PRO TEMPORAL ARTERY LIGATN OR BX Bilateral 10/25/2015 LIGATION OR BIOPSY, TEMPORAL ARTERY performed by Sukhdev Bhatti MD at [facility] MAIN OR ??? YAG CAPSULOTOMY Right 03/20/2019 ALLERGIES: Red blood cells, Beta-blockers (beta-adrenergic blocking [...] file Occupational History ??? Occupation: retired from [employer] Tobacco Use ??? 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 Chronic left-sided low back pain without [...] Janes Salazar MD CC: Zoey Lucas MD [address] [place] [address] [address] documented in this encounter Plan of Treatment [...] pain without sciatica documented in this encounter Active and Recently Administered Medications Times are shown in EDT. PRN Medication Order 02/11/2022 02/12/2022 02/13/2022 BUpivacaine (pf) (Marcaine) (2.5 mg/mL) 0.25% injection (CANCELE D) 0954 (Given - Provider: Janes Salazar MD) ONCE PRN, Starting on 02/13/22 at 0954 , Until 02/13/22 at 1205, Intra- Operative (Intra-Procedure), Routine iohexoL (Omnipaque) (240 mg/mL) solution (CANCELED) 0955 (Given - Provider: Janes Salazar MD) ONCE PRN, Starting on 02/13/22 at 0955 , Until 02/13/22 at 1205, Intra- Operative (Intra-Procedure), Routine lidocaine (pf) (Xylocaine) (10 mg/mL) 1% injection (CANCELED) 09 (Given - Provider: Janes Salazar MD) ONCE PRN, Starting on 02/13/22 at 0955 , Until 02/13/22 at 1205, Intra- Operative (Intra-Procedure), Routine methylPREDNISolone acetate (DEPO-Medrol) (40 mg/mL) injection (C ANCELED) 954 (Given - Provider: Janes Salazar MD) ONCE PRN, Starting on 02/13/22 at 0955 , Until 02/13/22 at 1205, Intra- Operative (Intra-Procedure), Routine documented in this encounter Care Teams Fireworks Assembler Relationship Specialty Start Date End Date Zoey Lucas MD PCP - General 09/05/[address] [place] [address] documented as of this encounter
--- OUTSIDE RECORDS SUMMARY | 2022-07-27 00:17 | XMS_ITS | Encounter Summary ---
:1940 Author Organization [facility] [place] [address] Care Team Providers Name Role Phone Zoey Lucas MD Primary Care Provider Encounter Details Date Type Department Care Team Description 10/31/2021 Surgery Routing Clerk Issac Solis, Not Per formed CARDIAC [facility] CATHETERIZATION [facility] [address] [place] [address] [place] [address] [phone] Social History Tobacco Use Types Packs/Day Years [...] Sign Reading Time Taken Comments Blood Pressure 135/63 10/31/2021 11:55 AM EST Pulse 81 10/31/2021 11:38 AM EST Temperature 37.1 ??C (98.8 ??F) 10/31/2021 11:38 AM EST Respiratory Rate 16 10/31/2021 11:38 AM EST Oxygen Saturation 99% 10/31/2021 11:38 AM EST Inhaled Oxygen Concentration - - Weight 77.6 kg (171 lb) 10/31/2021 11:38 AM EST Height 160 cm (5' 3) 10/31/2021 11:38 AM EST Body Mass Index 30.29 10/31/2021 11:38 AM EST documented in this encounter Medications at Time [...] Apply topically 0 % ointment as needed. metoprolol succinate XL daily. 0 10/06/2020 0 11/19/2021 (Toprol-XL) 25 mg Tablet Sustained Release 24 hr amLODIPine (NORVASC) 5 mg Take 2 tablets by 30 tablet 11 11/19/2021 Tablet mouth daily. hydrochlorothiazide 25 MG = 1 0 12/26/201011/19 (HYDRODIURIL) 25 mg tablet Tablet(s), PO, QAM acetaminophen (TYLENOL) 650 Take 1,300 mg by 0 11/19/2021 mg Tablet Sustained Release mouth every 8 hours as needed for Pain. Do not exceed 6 tabs in 24 hours documented as of this encounter H&P Notes Issac Mcdowell MD - 10/31/2021 1:11 PM EST See my note from today for details. documented in this encounter Miscellaneous Notes Consult Note - Issac Mcdowell MD - 10/31/2021 12:48 PM EST The patient presents for elective TAVR. Unfortunately, due to staffing issues, and a inpatient emergency situation, or unable to accommodate her TAVR today. Fortunately, she remains class II with symptoms and is able to wait. We recognize this is a tremendous inconvenience, as she had already shown up at the hospital. Nevertheless, it would not be safe to attempt her procedure today in light of our staffing shortages. I explained this to the patient, and we will also attempt to reimburse her for expenses related to her trip here today. We will plan to discontinue her IVs. I spoke with our care program director, Isabella Restrepo, who tells me that November 17 (Saturday) is the soonest that we would be able to do her procedure. I have informed the patient of the above, and she understands our dynamic. documented in this encounter Plan of Treatment Scheduled Orders Name Type Priority Associated Order Schedule Diagnoses Cardiac Catheterization Cardiac Cath Routine Severe aortic One Time for 1 stenosis Occurrences sta rting 08/30/2021 unti l 08/30/2021 @TRANSCATHETER AORTIC Procedures Routine Severe aortic One T dany for 1 VALVE REPLACEMENT stenosis Occurrence s starting (TAVR), PERCUTANEOUS 021 until FEMORAL 08/30/2021 documented as of this encounter Procedures Procedure Name Priority Date/Time Associated Comments Diagnosis TYPE AND SCREEN STAT 10/31/2021 10:56 Results for this VALIDITY AM EST procedure are i n the results section. ABORH RECHECK STATUS STAT 10/31/2021 10:56 Res ults for this AM EST procedure are i n the results section. AB COMMENT STAT 10/31/2021 10:56 Results for this AM EST procedure are i n the results section. HEMOGRAM Routine 10/31/2021 10:56 Severe aortic Results fo r this AM EST stenosis procedure are i n the results section. DIFFERENTIAL, AUTOMATED Routine 10/31/2021 10:56 Severe aortic Results for this AM EST stenosis procedure are i n the results section. ANTIBODY IDENTIFICATION STAT 10/31/2021 10:56 Results for this AM EST procedure are i n the results section. ABO/RH TYPING STAT 10/31/2021 10:56 Severe aortic Results f or this AM EST stenosis procedure are i n the results section. HC CBC,PLT & AUTO DIFF Routine 10/31/2021 10:56 Severe aortic AM EST stenosis ANTIBODY SCREEN STAT 10/31/2021 10:56 Severe aortic Results for this AM EST stenosis procedure are i n the results section. HC ANTIBODY STAT 10/31/2021 10:56 Severe aortic DETECTION,CAPTURE-R AM EST stenosis BASIC METABOLIC PANEL Routine 10/31/2021 10:56 Severe aortic R esults for this (NON-FASTING) AM EST stenosis procedure are in the results section. 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 ??This antibody can cause red cell hemolysis. Fu ture units for FAUSTINA transfusion will be negative for the E antigen and microbiology soil scientist ss-match compatible at [facility] the antiglobulin phase. ??Th masood additional steps will add about an hour to unit HOSPITAL preparation time, but compatible units should be avail able in our inventory. LABORATORY Krista Lane MD Transfusion Medicine Service 11/06/21 13:20 Comment: Krista Lane, Pathologist Verified:11/06/21 Specimen Anatomical Collection Method Collection Time Receive d Time (Source) Location / / Volume Laterality Blood 10/31/2021 10:56 10/31/2021 AM EST 10:58 AM EST Resulting Agency Comment Spec In Lab Anam Moseley PA BLOOD BANK ORDERABLES Performing Organization Address City/State/[place] [address] Antibody identification (10/31/2021 10:56 AM EST) P athologist Signature Ab Identified Anti-E [facility]OR[facility] Specimen Anatomical Collection Method Collection Time Receive d Time (Source) Location / / Volume Laterality Blood 10/31/2021 10:56 10/31/2021 AM EST 10:58 AM EST Resulting Agency Comment Spec In Lab Anam Moseley PA BLOOD BANK ORDERABLES Performing Organization Address City/State/ZIP Code Phon e Number [address] Type and Screen Validity (10/31/2021 10:56 AM EST) [facility] Method Time Signature T&S only valid [facility] LABORATORY Comment: This Type and Screen result is only valid at the [facility] Specimen Anatomical Collection Method Collection Time Receive d Time (Source) Location / / Volume Laterality Blood 10/31/2021 10:56 10/31/2021 AM EST 10:58 AM EST Resulting Agency Comment Spec In Lab Anam Moseley PA BLOOD BANK ORDERABLES Performing Organization Address City/[facility]/[place] [address] ABORH Recheck Status (10/31/2021 10:56 AM EST) [facility] gist Method Time Signature ABORH Recheck Order Placed [facility] LABORATORY ABORH Type Complete [facility] LABORATORY Specimen Anatomical Collection Method Collection Time Receive d Time (Source) Location / / Volume Laterality Blood 10/31/2021 10:56 10/31/2021 AM EST 10:58 AM EST Resulting Agency Comment Spec In Lab Anam Moseley PA BLOOD BANK ORDERABLES Performing Organization Address City/State/ZIP Code Phon e Number [address] Antibody screen (10/31/2021 10:56 AM EST) [facility] Method Time Signature Ab Screen Positive [facility] LABORATORY Expires at 11/03/2021 JANI GARZAFAUSTINA [id number] on: [facility] Specimen Anatomical Collection Method Collection Time Receive d Time (Source) Location / / Volume Laterality Blood 10/31/2021 10:56 10/31/2021 AM EST 10:58 AM EST Resulting Agency Comment Spec In Lab Anam PAULINO BLOOD BANK ORDERABLES Performing Organization Address City/[facility]/ZIP Code Phon e Number [address] ABO/Rh Typing (10/31/2021 10:56 AM EST) P athologist Signature ABORh Type O Pos [facility] Specimen Anatomical Collection Method Collection Time Receive d Time (Source) Location / / Volume Laterality Blood 10/31/2021 10:56 10/31/2021 AM EST 10:58 AM EST Resulting Agency Comment Spec In Lab Anam PAULINO BLOOD BANK ORDERABLES Performing Organization Address City/[facility]/ZIP Code Phon e Number [address] (ABNORMAL) Differential, Automated (10/31/2021 10:56 AM EST) [facility] Method Time Signature Neutrophils % 85.3 % [facility] Neutr Abs (ANC) 7.87 (H) 1.70 - [facility] 6.10 [facility] x10(3)/[facility] L LABORATORY Lymphocytes % 8.7 % [facility] Lymphocytes Abs 0.8 (L) 0.9 - 3.2 [facility] x10(3)/[facility] LABORATORY Monocytes % 4.4 % [facility] Monocyte Abs 0.4 0.3 - 0.9 [facility] x10(3)/[facility] LABORATORY Eosinophils % 0.3 % [facility] Eosinophils Abs 0.0 0.0 - 0.4 [facility] x10(3)/[facility] LABORATORY Basophils % 0.8 % [facility] Basophils Abs 0.1 0.0 - 0.1 [facility] x10(3)/[facility] LABORATORY Immature Gran % 0.50 % [facility] Comment: Immature granulocytes(IG's)percentage an d absolute count will include metamyelocytes, myelocytes, and promyelo cytes. Blood smears from CBCs yielding IG's will be scanned manually for concor dance. If this scan disagrees with the automated IG or if promyelocytes are not ed, a manual differential will be performed. Lida Gran Abs 0.05 (H) 0.00 - 0.04 x10(3)/[facility] LABORATORY Specimen Anatomical Collection Method Collection Time Receive d Time (Source) Location / / Volume Laterality Blood 10/31/2021 10:56 10/31/2021 AM EST 11:04 AM EST Resulting Agency Comment Spec In Lab Anam PAULINO HEMATOLOGY ORDERABLES Performing Organization Address City/State/[place] [address] (ABNORMAL) Hemogram (10/31/2021 10:56 AM EST) Analysis Performed At Patho logist Time Signature WBC 9.2 4.0 - 9.5 [facility] x10(3)/[facility] LABORATORY RBC 3.69 (L) 4.00 - [facility] 5.21 [facility] x10(6)/[facility] LABORATORY Hemoglobin 11.5 (L) 11.7 - [facility] 15.5 g/dL [facility] LAB[facility] Hematocrit 36.2 35.7 - [facility] 45.8 % [facility] LABORATORY MCV 98.1 (H) 82.6 - [facility] 94.4 [facility] LABORATORY MCH 31.2 27.1 - [facility] 32.0 pg [facility] LABORATORY MCHC 31.8 31.7 - [facility] 35.0 g/dL [facility] LABOR[facility] Platelets 252 145 - 357 [facility] x10(3)/[facility] LABORATORY RDWSD 48.3 (H) 37.0 - [facility] 46.0 [facility] LABORATORY RDWCV 13.3 11.5 - [facility] 14.1 % [facility] LABORATORY MPV 11.1 7.6 - 12.9 [facility] LABORATORY nRBC % Auto 0.0 % [facility] nRBC Abs Auto 0.000 0.000 - [facility] 0.000 [facility] x10(3)/[facility] LABORATORY Specimen Anatomical Collection Method Collection Time Receive d Time (Source) Location / / Volume Laterality Blood 10/31/2021 10:56 10/31/2021 AM EST 11:04 AM EST Resulting Agency Comment Spec In Lab Anam PAULINO HEMATOLOGY ORDERABLES Performing Organization Address City/State/[place] [address] (ABNORMAL) Basic Metabolic Panel (non-fasting) (10/31/2021 10:56 AM EST) P athologist Signature Glucose Lvl 110 65 - 199 [facility] mg/dL [facility] Comment: Diabetes: >=200 mg/dL plus symp toms BUN 34 (H) 8 - 18 mg/dL [facility] LABORATORY Creatinine 1.29 (H) 0.70 - 1.20 mg/dL [facility] LABORATORY Sodium 142 135 - 145 mmol/L [facility] LABORATORY Potassium 4.0 3.5 - 5.0 mmol/L [facility] LABORATORY Comment: Please note: ??Patients with WBC >100,00 0 may have falsely elevated Potassium levels. ??For accurate Potassium quantif ication in these patients send serum separator tube (gold top) for subsequent determinations. ??Contact the Clinical Chemistry Laboratory if there are any qu estions. Chloride 105 98 - 107 mmol/L [facility] CO2 24 22 - 31 mmol/L [facility] Anion Gap 13 5 - 15 mmol/L [facility] LABORATORY Calcium 10.2 8.5 - 10.5 mg/dL [facility] LABORATORY Estimated GFR 39 (L) >=60 mL/min/1.73 m?? [facility] Comment: This patient? s estimated glomerular filtration rate (eGFR) is between 39 mL/min/1.73 m2 (patients with less muscl e mass) and 45 mL/min/1.73 m2 (patients with more muscle mass) [...] (Source) Location / / Volume Laterality Blood 10/31/2021 10:56 10/31/2021 AM EST 11:04 AM EST Resulting Agency Comment Spec In Lab Issac Mcdowell MD CHEMISTRY ORDERABLES Performing Organization Address City/State/ZIP Code Phon e Number [place] [id number]OS[address] documented in this encounter Visit Diagnoses Diagnosis Severe aortic stenosis Aortic valve disorders Aortic stenosis, severe Aortic valve disorders Severe aortic stenosis Aortic valve disorders documented in this encounter Admitting Diagnoses Diagnosis Aortic stenosis, severe Aortic valve disorders documented in this encounter Administered Medications Inactive Administered Medications - up to 3 most recent administrations Medication Order MAR Action Action Date Dose Rate Site lidocaine (Xylocaine) 1% (10 mg/mL) inje ction 3 mg 3 mg (0.3 mL), Subcutaneous, ONCE PRN, 1 dose, Startin g on Sat10/31/21 at 1137, Until Sat10/31/21 at 1511, for discomfor t with PIV insertion, Day of Surgery (Day of Procedure), Routine sodium chloride 0.9 % (flush) (BD PosiFl ush Normal Saline 0.9) flush 5 mL 5 mL, Intravenous, EVERY 12 HOURS, First dose on Sat at 1200, Until Discontinued, Day of Surgery (Day of Procedure), Routi ne sodium chloride 0.9 % (flush) (BD PosiFl ush Normal Saline 0.9) flush 5-20 mL 5-20 mL, Intravenous, EVERY 1 MIN PRN, S tarting on Sat10/31/21 at 1137, Until Sat10/31/21 at 1511, flush, Flush pertains t o all indwelling lines. Flush per protocol found in the job aid using the link provided on this m edication record., Day of Surgery (Day of Procedure), Routine documented in this encounter Active and Recently Administered Medications Times are shown in EST. Scheduled Medication Order 10/29/2021 10/30/2021 10/31/2021 sodium chloride 0.9 % (flush) (BD PosiFlush Normal Saline 0.9) f lush 5 mL 1200 (Due) 5 mL, Intravenous, EVERY 12 HOURS, First dose on Sat10/31/21 at 1200, Until Discontinued, Day of Surgery (Day of Procedure), Routine PRN Medication Order 10/29/2021 10/30/2021 10/31/2021 lidocaine (Xylocaine) 1% (10 mg/mL) injection 3 mg 3 mg (0.3 mL), Subcutaneous, ONCE PRN, 1 dose, Starting on Sat10/31/21 at 1137, Until Sat10/31/21 at 1511, for discomfort with PIV insertion, Day of Surgery (Day of Procedure), Routine sodium chloride 0.9 % (flush) (BD PosiFlush Normal Saline 0.9) f lush 5-20 mL 5-20 mL, Intravenous, EVERY 1 MIN PRN, S tarting on Sat10/31/21 at 1137, Until Sat10/31/21 at 1511, flush, Flush pertains to all indwelling lines. Flush per protocol found in the job aid using the link p rovided on this medication record., Day of Surgery (Day of P rocedure), Routine documented in this encounter Care Teams Lpn Private Duty Relationship Specialty Start Date End Date Zoey Lucas MD PCP - General 09/05/[address] [place] [address] documented as of this encounter
--- OUTSIDE RECORDS SUMMARY | 2022-07-27 00:17 | XMS_ITS | Encounter Summary ---
:1940 Author Organization [facility] Address [address] [place] [address] Care Team Providers Name Role Phone Zoey Lucas MD Primary Care Provider Reason for Visit Reason Comments Skin Lesion focused exam of the lips Consultation (Routine) - Closed Specialty Diagnoses / Procedures Referred By Contact Refer red To Contact Dermatology Diagnoses Disease of lips Zoey Lucas MD [facility] Dermatology [address] [place], [place] [address] [place] [address] Fax: Referral ID Status Reason Start Date Expiration Date Visits V isits Requested Authorized [id number] Closed Consult, Test 04/21/2019 04/20/2020 1 1 & Treat PCP Updated and/or Approved Encounter Details Date Type Department Care Team Description 06/02/2019 Office Visit Dermatology at [facility] oplasm of uncertain behavior; Justice Rizvi MD Venous knight of lip [address] [place] [address], [place] [address] Social History Tobacco Use Types Packs/Day Years Used Date Former Smoker Quit: 10/20/18 84 Smokeless Tobacco: Never Used Alcohol Use Standard Drinks/Week Comments Yes 1 (1 standard drink = 0.6 oz pure alcoho l) occasionaly Alcohol Habits Answer Date Recorded How often do you have a drink containing alcohol? Not asked How many drinks containing alcohol do you have on a typical Not asked day when you are drinking? How often do you have six or more drinks on one occasion? No t asked Comment: occasionaly 10/24/2015 Sex Assigned at Date Recorded Female 02/10/2021 8:25 AM EDT documented as of this encounter Patient Instructions Patient Yoselyn Fierro - 06/02/2019 2:00 PM EDT Treatment and Wound Care Instructions Your treatment today: You have had a shave biopsy of your skin, which is a removal of tissue for examination under a microscope. This wound will heal without stitches. Allow 3-6 weeks for the wound to heal. If bleeding occurs, hold firm pressure against the wound for 15 minutes. If bleeding continues, calls the office or go to your local emergency room. Please allow 1-2 weeks for the biopsy results to return. Your physician or nurse will contact you with the results by phone or letter; follow-up will be discussed at that time. Wound Care Instructions: You will need to keep the dressing placed over the wound dry and intact for 24 hours. Afterwards, perform the following wound care daily: ?? Wash your hands before changing the dressing. ?? Remove the bandage and clean the area with mild soap and water, then gently pat the area dry. ?? Apply a small amount of Vaseline to the area, then cover the wound with a band-aid. Change your dressing daily until the wound is fully healed. ?? A small amount of yellow drainage is part of normal healing. The area might appear as a small depression with redness around the edge of the wound. This is normal. ?? Please contact the office you you notice any of the following signs of infection: increased tenderness, pain, drainage, or redness that becomes hot or hard around the wound. If you have further questions or concerns, please call the office at [phone]. If it is after 5PM, or a holiday or weekend, please call [phone] and ask for the Biomedical Equipment Specialist on-call. documented in this encounter Progress Notes Daphne León MD - 06/02/2019 2:00 PM EDT Images from the original note were not included. DERMATOLOGY CONSULT NOTE Date of service: 06/02/2019 Zeny Joe : 1940 Provider: Daphne León MD Chief Complaint Patient presents with ??? Skin Lesion focused exam of the lips SKIN HX: No personal history of Melanoma or NMSC No personal history of skin disease FAMILY HISTORY: Mother of melanoma SOCIAL HISTORY/OCCUPATION: Retired Wears SPF 30 on her face, SPF 50 on torso and extremities Allergy to Lidocaine or Epinephrine? No Pacemaker or Defibrillator? No Preferred name: Ruthie Preferred method of contact for results: Home Phone or Cell Phone OK to leave detailed message including biopsy results if applicable: Yes Are there any other people with whom we may discuss your care with? N/A () Preferred pharmacy: [facility] Zeny Joe is a 79 y.o. year old female, new patient, seen at the request of Zoey Lucas MD, who instructed the patient to be seen for evaluation of above. Here today for lesion on the lip, present for 3-4 years. Lesion has gradually become darker since onset. MEDS: Current Outpatient Medications Medication Sig Dispense Refill ??? ERGOCALCIFEROL, VITAMIN D2, (VITAMIN D ORAL) Take 2,000 Units by mouth daily. ??? predniSONE (DELTASONE) 5 mg Tablet Take 5 mg by mouth daily. ??? aspirin 81 mg Tablet, Chewable Take 81 mg by mouth daily. ??? amLODIPine (NORVASC) 5 mg Tablet Take 2 tablets by mouth daily. (Patient taking differently: Take 5 mg by mouth daily.) 30 tablet 11 ??? escitalopram oxalate (LEXAPRO) 10 mg Tablet Take 10 mg by mouth daily. ??? CALCIUM CARBONATE/VITAMIN D3 (VITAMIN D-3 ORAL) Take 1,200 mg by mouth daily. ??? fexofenadine (RENAY) 180 mg tablet 180 MG = 1 Tablet(s), PO, QAM (Patient taking differently: 180 MG = 1 Tablet(s), PO, QAM, PRN) ??? cetirizine (ZYRTEC) 10 mg tablet 10 MG = 1 Tablet(s), PO, QHS (Patient taking differently: 10 MG= 1 Tablet(s), PO, QHS, PRN) ??? hydrochlorothiazide (HYDRODIURIL) 25 mg tablet 25 MG = 1 Tablet(s), PO, QAM ??? hydrocortisone 2.5 % cream 1 Appl(s), Top, Twice daily (Patient taking differently: 1 Appl(s), Top, Twice daily, PRN) ??? PREVNAR 13 0.5 mL Syringe INJECT INTRAMUSCULARLY ONCE 0 ??? predniSONE (DELTASONE) 1 mg Tablet Take 2 mg by mouth daily. ??? triamcinolone (KENALOG) 0.1 % ointment 1 Appl(s), Top, Twice daily (Patient not taking: Reportedon 06/02/2019) No current facility-administered medications for this visit. ADR: Beta-blockers (beta-adrenergic blocking agts); Doxazosin mesylate; Lisinopril; and Nickel ROS General: feeling well Skin: denies other skin complaints MEDICAL HISTORY: Patient Active Problem List Diagnosis Code ??? 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 Left upper vermilion lip border: 0.5 x 0.3cm dark brown macule [Specimen A, Figure 1] Figure 1. A left upper vermilion lip border Photo(s) taken and charted with patient's verbal consent. B. Left lower vermilion lip: blue-purple vascular macule that blanches upon diascopy. Similar appearing papule on left inner left mucosal lip ASSESSMENT/PLAN: A. Lentigo R/O LM - Recommended a skin biopsy to confirm/clarify the nature of the skin lesion. After discussion of potential risks (scarring, bleeding, infection) and recurrence, patient agreed to proceed. - Patient denies allergy to lidocaine or epinephrine. Procedure: Skin biopsy by shave technique Location: left upper vermilion lip border Time: 2:00 PM Discussed indications for procedure and expectations including risks and benefits. Verbal consent obtained. Skin prep with alcohol. Local anesthesia with 1% xylocaine, 1/100,000 epinephrine. A sample of the lesion was removed by shave technique to the level of the dermis and submitted to Pathology. Hemostasis obtained (AlCl and/or electrocautery). There were no complications; the pt. tolerated the procedure well. The wound was dressed. Post-procedure expectations, wound care and activity restrictions were reviewed. Follow-up based on pathology results. B. Venous Knight - Discussed benign nature of lesion and provided reassurance. No treatment necessary at this time. Follow up: Pending biopsy results; recommended full skin exam (family h/o melanoma) patient will schedule appointment at her convenience I am documenting this encounter acting as the scribe for and in the presence of Dr. León: Yoselyn Veloz I performed the above scribed service and agree with the accuracy of the documentation in this encounter. Daphne León MD [employer] of Dermatology, Department of Surgery [facility] cc: Zoey Lucas MD Daphne León MD - 06/02/2019 2:00 PM EDT Your recent biopsy showed freckle like skin growth, which is benign. Good news. No further treatmentis needed at this time. I hope you are healing well. Please let me know if you have any questions orconcerns. -Daphne León documented in this encounter Plan of Treatment Not on filedocumented as of this encounter Procedures Procedure Name Priority Date/Time Associated Diagnosis Comme nts SPECIMEN TO Routine 06/02/2019 2:54 PM Neoplasm of Results f or this PATHOLOGY EDT uncertain behavior procedure are in the results section. SURGICAL PATHOLOGY Routine 06/02/2019 2:00 PM Res ults for this REPORT EDT procedure are i n the results section. documented in this encounter Results Specimen to Pathology (06/02/2019 2:54 PM EDT) Specimen Anatomical Collection Method Collection Time Receive d Time (Source) Location / / Volume Laterality AP Specimen 06/02/2019 2:54 PM 9 6:09 EDT PM EDT Narrative [facility] - 06/02/2019 6:09 PM EDT Specimen requisition ordered. ??Separate Pathology report to follow Resulting Agency Comment Spec In Lab Daphne León MD PATHOLOGY/CYTOLOGY ORDERABLE S Performing Organization Address City/State/[place] [address] Surgical Pathology Report (06/02/2019 2:00 PM EDT) Component Value Ref Test Analysis Performed At [facility] gist Range Method Time Signature Surgical [id number] ? Location: [facility] Report The signing pathologist has (i) examined the relevant preparation(s) for the [facility] specimen(s) and (ii) rendered or confirmed the diagnosis(es) . HOSPITAL LABORATORY . ?Surgic al Pathology DIAGNOSIS A. Skin, left upper vermilion lip border, shave biopsy: - Pigmented macular ??seborrheic keratosis/lentigo Electronically signed by: ??Korin Orantes MD Verified: ??06/04/2019 ?Dermatopathologist Performed at: ??-[facility] [place], [place], [place] CLINICAL INFORMATION Specimen Submitted: A - Skin, left upper vermilion lip border, shave biopsy (1) Clinical History and Diagnosis: 0.5 x 0.3 cm dark brown macule. Lentigo rule out LM SPECIMEN PROCESSING A - Labeled/Fixative: Left upper vermilion border, formalin. Quantity/Size: ??Single, 0.5 x 0.3 x 0.1 cm. Tissue Description: Irregular shave of mottled pedraza-brown ski n. Sections/Processing: Inked, bisected and entirely submitted in 1 cassette labeled A1. 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
--- OUTSIDE RECORDS SUMMARY | 2022-07-27 00:17 | XMS_ITS | Encounter Summary ---
:1940 Author Organization [facility] [place] [address] Care Team Providers Name Role Phone Zoey Lucas MD Primary Care Provider Encounter Details Date Type Department Care Team Description 08/24/2021 Hospital Encounter [place]Ray at [facility] Issac Mcdowell Severe aortic [address] [place] [address] Dmitri MD stenosis [facility] [address] [place] [phone] [place] [address] Social History Tobacco Use Types Packs/Day Years [...] Name Priority Date/Time Associated Diagnosis Comme nts XR CHEST PA AND Routine 08/24/2021 10:26 AM Severe aortic Resu lts for this LATERAL EST stenosis procedure are i n the results section. documented in this encounter Results XR Chest PA & Lateral (Generic) (08/24/2021 10:26 AM EST) Anatomical Region Laterality Modality Chest N/A Digital Radiography Specimen (Source) Anatomical Location Collection Method / Collectio n Time Received Time / Laterality Volume Impressions 08/24/2021 12:07 PM EST No active cardiopulmonary pathology seen. I have personally reviewed the image(s) and the resident's interpretation and agree with the findings, Makenzie Queen MD at 08/24/2021 12:07 PM Thank you for letting us participate in the care of this patient. ??If you are a health care provider and have any questi ons regarding this report, please contact the number below. ??For patients who have questions please contact the health healthcare market consultant that requested your imaging first. ? Electronically signed by: Makenzie Queen MD, [facility] ([phone]), at 08/24/2021 12:07 PM Narrative 08/24/2021 12:07 PM EST EXAMINATION: XR CHEST PA AND LATERAL (GENERIC) CLINICAL HISTORY: TAVR screening TECHNIQUE: PA and lateral views of the chest COMPARISON: None FINDINGS: Cardiomediastinal silhouette, pulmonary vascular markings, and hilar contours are within normal limits. Chain suture b y the left hilum with left lung volume loss and elevated left hemidiaphragm, co nsistent with prior lobectomy. Otherwise, lungs appear clear. No pneumo thorax. No pleural effusions. Posterior left sixth rib thoracotomy defect. Procedure Note Makenzie Queen MD - 08/24/2021Formatt ing of this note might be different from the original. EXAMINATION: XR CHEST PA AND LATERAL (GE NERIC) CLINICAL HISTORY: TAVR screening TECHNIQUE: PA and lateral views of the chest COMPARISON: None FINDINGS: Cardiomediastinal silhouette, pulmonary vascular markings, and hilar contours are within normal limits. Chain suture b y the left hilum with left lung volume loss and elevated left hemidiaphragm, co nsistent with prior lobectomy. Otherwise, lungs appear clear. No pneumo thorax. No pleural effusions. Posterior left sixth rib thoracotomy defect. IMPRESSION No active cardiopulmonary pathology seen . I have personally reviewed the image(s) and the resident's interpretation and agree with the findings, Makenzie Quene MD at 08/24/2021 12:07 PM Thank you for letting us participate in the care of this patient. If you are a health care provider and have any questi ons regarding this report, please contact the number below. For patients w ho have questions please contact the health healthcare market consultant that requested your imaging first. Electronically signed by: Makenzie Queen MD, [facility] ([phone]), at 08/24/2021 12:07 PM Issac Mcdowell MD IMG DX ORDERABLES documented in this encounter Visit Diagnoses Diagnosis Severe aortic stenosis Aortic valve disorders documented in this encounter Care Teams Gold Cutter Relationship Specialty Start Date End Date Zoey Lucas MD PCP - General 09/05/[address] [place] [address] documented as of this encounter
--- OUTSIDE RECORDS SUMMARY | 2022-07-27 00:17 | XMS_ITS | Encounter Summary ---
:1940 Author Organization [place] [address] Care Team Providers Name Role Phone Zoey Lucas MD Primary Care Provider Encounter Details Date Type Department Care Team Description 07/19/2021 Orders Only Auto Transmission Specialist Anam Marroquin, Screening for cardiovascular condition; [facility] Aortic valve stenosis, etiology of cardi ac valve disease unspecified; [facility] Aortic valve disease; [facility] [address], [place] [address] [place], [place] [phone] (Work) [phone] Social History Tobacco Use Types Packs/Day Years [...] as of this encounter Visit Diagnoses Diagnosis Screening for cardiovascular condition Screening for other and unspecified card iovascular conditions Aortic valve stenosis, etiology of cardi ac valve disease unspecified Aortic valve disease Aortic valve disorders Dyspnea, unspecified type documented in this encounter Care Teams Keyboard Specialist Relationship Specialty Start Date End Date Zoey Lucas MD PCP - General 09/05/[address] [place] [address] documented as of this encounter
--- OUTSIDE RECORDS SUMMARY | 2022-07-27 00:17 | XMS_ITS | Encounter Summary ---
:1940 Author Organization [facility] [place] [address] Care Team Providers Name Role Phone Zoey Lucas MD Primary Care Provider Encounter Details Date Type Department Care Team Description 08/29/2021 Orders Only Cardiology at [facility] Issac Mcdowell, Severe aortic stenosis [facility] [place] [address] [address]ARD[address]PT[address] [place], [place] [address] Social History Tobacco Use Types [...] as of this encounter Visit Diagnoses Diagnosis Severe aortic stenosis Aortic valve disorders documented in this encounter Care Teams Regional Engineer Relationship Specialty Start Date End Date Zoey Lucas MD PCP - General 09/05/[address] [place] [address] documented as of this encounter
--- OUTSIDE RECORDS SUMMARY | 2022-07-27 00:17 | XMS_ITS | Encounter Summary ---
:1940 [place] [address] Care Team Providers Name Role Phone Zoey Lucas MD Primary Care Provider Encounter Details Date Type Department Care Team Description 10/31/2021 Hospital Encounter Same Day Program at [facility] Severe aortic Yuki Rizvi MD stenosis [facility] [address] [place] [address] [phone] Social History Tobacco Use Types Packs/Day Years [...] discontinue her IVs. 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 ??This antibody can cause red cell hemolysis. Fu ture units for FAUSTINA transfusion will be negative for the E antigen and acrobatic dancer ss-match compatible at [facility] the antiglobulin phase. ??Th masood additional steps [...] Organization Address City/State/[place] [address] Antibody identification (10/31/2021 10:56 AM EST) P athologist Signature Ab Identified Anti-E [facility] LABORATORY Specimen Anatomical Collection Method Collection Time Receive d Time (Source) Location / / Volume Laterality Blood 10/31/2021 10:56 10/31/2021 AM EST 10:58 AM EST Resulting Agency Comment Spec In Lab Anam Moseley PA BLOOD BANK ORDERABLES Performing Organization Address City/State/ZIP Code Phon e Number [address] Type and Screen Validity (10/31/2021 10:56 AM EST) [facility] gist Method Time Signature T&S only valid [facility] LABORATORY Comment: This Type and Screen result is only valid at the [facility] Specimen Anatomical Collection Method Collection Time Receive d Time (Source) Location / / Volume Laterality Blood 10/31/2021 10:56 10/31/2021 AM EST 10:58 AM EST Resulting Agency Comment Spec In Lab Anam Moseley [place] BLOOD BANK ORDERABLES Performing Organization Address City/[facility]/ZIP Code Phon e Number [address] ABORH Recheck Status (10/31/2021 10:56 AM EST) [facility] gist Method Time Signature ABORH Recheck Order Placed [facility] LABORATORY ABORH Type Complete [facility] LABORATORY Specimen Anatomical Collection Method Collection Time Receive d Time (Source) Location / / Volume Laterality Blood 10/31/2021 10:56 10/31/2021 AM EST 10:58 AM EST Resulting Agency Comment Spec In Lab Anam Moseley PA BLOOD BANK ORDERABLES Performing Organization Address City/State/ZIP Code Phon e Number [address] Antibody screen (10/31/2021 10:56 AM EST) [facility] Method Time Signature Ab Screen Positive [facility] LABORATORY Expires at 11/03/2021 YUKI WEEMS [id number] on: [facility] LABORATORY Specimen Anatomical Collection Method Collection Time Receive d Time (Source) Location / / Volume Laterality Blood 10/31/2021 10:56 10/31/2021 AM EST 10:58 AM EST Resulting Agency Comment Spec In Lab Anam PAULINO BLOOD BANK ORDERABLES Performing Organization Address City/[facility]/ZIP Code Phon e Number [address] ABO/Rh Typing (10/31/2021 10:56 AM EST) P athologist Signature ABORh Type O Pos [facility] Specimen Anatomical Collection Method Collection Time Receive d Time (Source) Location / / Volume Laterality Blood 10/31/2021 10:56 10/31/2021 AM EST 10:58 AM EST Resulting Agency Comment Spec In Lab Anam PAULINO BLOOD BANK ORDERABLES Performing Organization Address City/[facility]/ZIP Code Phon e Number [address] (ABNORMAL) Differential, Automated (10/31/2021 10:56 AM EST) [facility] Method Time Signature Neutrophils % 85.3 % [facility] Neutr Abs (ANC) 7.87 (H) 1.70 - [facility] 6.10 [facility] x10(3)/[facility] LABORATORY Lymphocytes % 8.7 % [facility] Lymphocytes Abs 0.8 (L) 0.9 - 3.2 [facility] x10(3)/[facility] LABORATORY Monocytes % 4.4 % [facility] Monocyte Abs 0.4 0.3 - 0.9 [facility] x10(3)/[facility] LABORATORY Eosinophils % 0.3 % [facility] Eosinophils Abs 0.0 0.0 - 0.4 [facility] x10(3)/[facility] LABORATORY Basophils % 0.8 % [facility] Basophils Abs 0.1 0.0 - 0.1 [facility] x10(3)/[facility] LABORATORY Immature Gran % 0.50 % [facility] Comment: Immature granulocytes(IG's)percentage an d absolute count will include metamyelocytes, myelocytes, and promyelo cytes. Blood smears from CBCs yielding IG's will be scanned manually for concor dance. If this scan disagrees with the automated IG or if promyelocytes are not ed, a manual differential will be performed. Lida Gran Abs 0.05 (H) 0.00 - 0.04 x10(3)/[facility] LABORATORY Specimen Anatomical Collection Method Collection Time Receive d Time (Source) Location / / Volume Laterality Blood 10/31/2021 10:56 10/31/2021 AM EST 11:04 AM EST Resulting Agency Comment Spec In Lab Anam PAULINO HEMATOLOGY ORDERABLES Performing Organization Address City/State/[place] [address] (ABNORMAL) Hemogram (10/31/2021 10:56 AM EST) Analysis Performed At Patho logist Time Signature WBC 9.2 4.0 - 9.5 [facility] x10(3)/[facility] LABORATORY RBC 3.69 (L) 4.00 - [facility] 5.21 [facility] x10(6)/[facility] LABORATORY Hemoglobin 11.5 (L) 11.7 - [facility] 15.5 g/dL [facility] LABORATORY Hematocrit 36.2 35.7 - [facility] 45.8 % [facility] LABORAT[facility] MCV 98.1 (H) 82.6 - [facility] 94.4 [facility] MCH 31.2 27.1 - [facility] 32.0 pg [facility] LABORAT[facility] MCHC 31.8 31.7 - [facility] 35.[facility] g/dL [facility] Platelets 252 145 - 357 [facility] x10(3)/[facility] LABORATORY RDWSD 48.3 (H) 37.0 - [facility] 46.0 [facility] RDWCV 13.3 11.5 - [facility] 14.1 % [facility] LABORATORY MPV 11.1 7.6 - 12.9 [facility] LABORATORY nRBC % Auto 0.0 % [facility] nRBC Abs Auto 0.000 0.000 - [facility] 0.000 [facility] x10(3)/[facility] LABORATORY Specimen Anatomical Collection Method Collection Time Receive d Time (Source) Location / / Volume Laterality Blood 10/31/2021 10:56 10/31/2021 AM EST 11:04 AM EST Resulting Agency Comment Spec In Lab Anam PAULINO HEMATOLOGY ORDERABLES Performing Organization Address City/State/[place] [address] (ABNORMAL) Basic Metabolic Panel (non-fasting) (10/31/2021 10:56 AM EST) P athologist Signature Glucose Lvl 110 65 - 199 [facility] mg/dL [facility] Comment: Diabetes: >=200 mg/dL plus symp toms BUN 34 (H) 8 - 18 mg/dL [facility] LABORAT[facility] Creatinine 1.29 (H) 0.70 - 1.20 mg/dL [facility] LABORATORY Sodium 142 135 - 145 mmol/L [facility] Potassium 4.0 3.5 - 5.0 mmol/L [facility] Comment: Please note: ??Patients with WBC >100,00 0 may have falsely elevated Potassium levels. ??For accurate Potassium quantif ication in these patients send serum separator tube (gold top) for subsequent determinations. ??Contact the Clinical Chemistry Laboratory if there are any qu estions. Chloride 105 98 - 107 mmol/L [facility] CO2 24 22 - 31 mmol/L [facility] Anion Gap 13 5 - 15 mmol/L [facility]OR[facility] Calcium 10.2 8.5 - 10.5 mg/dL [facility] Estimated GFR 39 (L) >=60 mL/min/1.73 m?? [facility] Comment: This patient? s estimated [...] Organization Address City/State/ZIP Code Phon e Number [place] [phone] documented in this encounter Visit Diagnoses Diagnosis Severe aortic stenosis Aortic valve disorders Aortic stenosis, severe Aortic valve disorders documented [...] Routine documented in this encounter Care Teams Negative Cutter Relationship Specialty Start Date End Date Zoey Lucas MD PCP - General 09/05/[address] [place] [address] documented as of this encounter
--- OUTSIDE RECORDS SUMMARY | 2022-07-27 00:17 | XMS_ITS | Encounter Summary ---
:1940 Author Organization [facility] [place] [address] Care Team Providers Name Role Phone Zoey Lucas MD Primary Care Provider Encounter Details Date Type Department Care Team Description 08/24/2021 Office Visit Cardiac Surgery at [facility] aortic stenosis [facility] [place] [facility] [address] [place]ARDI[place]ACIC [address] SURGERY [phone] [place], [place] [address] Social History Tobacco Use Types [...] Sign Reading Time Taken Comments Blood Pressure 149/74 08/24/2021 1:04 PM EST Pulse 88 08/24/2021 1:04 PM EST Temperature - - Respiratory Rate - - Oxygen Saturation 99% 08/24/2021 1:04 PM EST Inhaled Oxygen Concentration - - Weight 78.9 kg (174 lb) 08/24/2021 1:04 PM EST Height 160 cm (5' 3) 08/24/2021 1:04 PM EST Body Mass Index 30.82 08/24/2021 1:04 PM EST documented in this encounter Progress Notes [facility] Post MD - 08/24/2021 1:20 PM EST To: MD Issac Moses MD Re: Ifeoma Joe ( 1940) Thank you for the opportunity to meet with Ms. Joe today to discuss issues surrounding the management of her aortic stenosis. Although well-known to you please allow me to reiterate the pertinent issues for the purpose of the chart. Mrs. Joe is an 81-year-old woman with known and progressively severe trileaflet calcific aortic stenosis. She now has symptoms of class II exertional dyspnea, she denies chest pain, she denies syncope. A recent echo showed a calcified stenotic aortic valve with an aortic valve area of 0.9 cm??, her systolic function was in the 50s. She also underwent a cardiac catheter had an opportunity to review. This study shows mild pulmonary hypertension with a PA pressure of 38/7 and no obstructive coronary disease. Her past medical history and systems were reviewed in their entirety the pertinent issues are listed below. Ms. Rodriguez has treated hypertension, she is not a diabetic. She has had no known previous CVA or TIA. She has no known renal or hepatic insufficiency. She does have spinal stenosis. She used tobacco in the distant past. She was recently discharged after an episode of urosepsis but feels better. She carries a diagnosis of giant cell arteritis and PMR for which she is on prednisone. 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 She is undergone a cholecystectomy. On examination she is a blood pressure 150/70, her heart rates in the 80s at sinus by palpation. Her HEENT examination is unremarkable, there is a murmur transmitted to both sides of her neck, there are no cervical masses. There is no scleral icterus or arcus senilis. She does have a 3/6 systolic murmur at the right upper parasternal border which radiates into her neck. Her abdomen is soft. Her lower extremities are free of edema. There is no gross neurological deficit. In summary, Ms. Joe has severe, symptomatic aortic stenosis. I do agree she would benefit from aortic valve replacement therapy. I think given her chronological age and comorbidities a transcatheter approach would be the most appropriate. It would appear that she is a candidate and this is tentatively been scheduled for October. In the interim thank you very much for allowing us to participate in her care and should you require anything further please do not hesitate to contact my office. Best person regards, [facility]der Post MD [phone] documented in this encounter Plan of Treatment Not on filedocumented as of this encounter Procedures Procedure Name Priority Date/Time Associated Diagnosis Comme nts EKG 12-LEAD Routine 08/24/2021 1:11 PM Severe aortic Results for this EST stenosis procedure are i n the results section . documented in this encounter Results EKG 12 Lead (08/24/2021 1:11 PM EST) [facility] gist Method Time Signature Ventricular rate 80 BPM MUSE SYSTEM Atrial Rate 80 BPM MUSE SYSTEM P-R Interval 180 ms MUSE SYSTEM QRS Duration 78 ms MUSE SYSTEM Q-T Interval 386 ms MUSE SYSTEM QTC Calculated 445 ms MUSE SYSTEM (Bezet) Calculated P [place] 67 degrees MUSE SYSTEM Calculated R [place] 18 degrees MUSE SYSTEM Calculated T [place] 71 degrees MUSE SYSTEM INTERPRETATION Normal sinus rhythm MUSE SYSTEM Normal ECG No previous ECGs available Confirmed by Dean Waddell ([id number]) on 08/25/2021 2:18 :08 PM Specimen Anatomical Collection Method Collection Time Receive d Time (Source) Location / / Volume Laterality 08/24/2021 1:11 PM 2:18 EST PM EST [facility] MD ECG ORDERABLES Performing Organization Address City/State/ZIP Code Phon e Number MUSE SYSTEM documented in this encounter Visit Diagnoses Diagnosis Severe aortic stenosis Aortic valve disorders documented in this encounter Care Teams Auto Claim Representative Relationship Specialty Start Date End Date Zoey Lucas MD PCP - General 09/05/[address] [place] [address] documented as of this encounter
--- OUTSIDE RECORDS SUMMARY | 2022-07-27 00:17 | XMS_ITS | Encounter Summary ---
:1940 [place] [address] Care Team Providers Name Role Phone Zoey Lucas MD Primary Care Provider Encounter Details Date Type Department Care Team Description 07/24/2021 External Results Non-Invasive [place] [address] Social History Tobacco Use Types Packs/Day [...] Name Priority Date/Time Associated Diagnosis Comme nts [id number] Routine 06/27/2021 Results for thi s procedure are in the resu lts section. documented in this encounter Results ECHO COMPLETE (06/27/2021) Narrative This result has an attachment that is no t available. Historical Provider CARDIOULTRASOUND [facility] documented in this encounter Visit Diagnoses Not on filedocumented in this encounter Care Teams Paint Booth Operator Relationship Specialty Start Date End Date Zoey Lucas MD PCP - General 09/05/[address] [place] [address] documented as of this encounter
--- OUTSIDE RECORDS SUMMARY | 2022-07-27 00:17 | XMS_ITS | Encounter Summary ---
:1940 Author Organization [employer] [place] [address] Care Team Providers Name Role Phone Zoey Lucas MD Primary Care Provider Encounter Details Date Type Department Care Team Description 10/17/2021 Notes Only Cardiology at [facility] Phoebe Restrepo, [place] [address] Social History Tobacco Use Types Packs/Day [...] as of this encounter Progress Notes Phoebe Restrepo, DAVE - 10/17/2021 12:39 PM ESTSummary: Structural Heart Note Contacted Ms Joe to request moving TAVR date to Oct 31 due to surg-capacity staffing. She exhibits understanding and accepts date. TAVR Tue Oct 31 documented in this encounter Plan of Treatment Not on filedocumented as of this encounter Visit Diagnoses Not on filedocumented in this encounter Care Teams Datastage Consultant Relationship Specialty Start Date End Date Zoey Lucas MD PCP - General 09/05/[address] [place] [address] documented as of this encounter
--- OUTSIDE RECORDS SUMMARY | 2022-07-27 00:17 | XMS_ITS | Encounter Summary ---
:1940 Author Organization [facility] Address [facility] [facility] [address] [place] [address] Care Team Providers Name Role Phone Zoey Lucas MD Primary Care Provider Encounter Details Date Type Department Care Team Description 08/29/2021 Surgery Gas Dispenser Issac Dunn, CARDIAC CATHETERIZATION [facility] [place] [address] CARDIOLOGY DEPT. [phone] [place], [place] [address] (Wo rk) Social History Tobacco Use Types [...] Reading Time Taken Comments Blood Pressure 149/74 08/29/2021 11:10 AM EST Pulse 90 08/29/2021 12:34 PM EST Temperature 36.3 ??C (97.3 ??F) 08/29/2021 11:10 AM EST Respiratory Rate - - Oxygen Saturation 99% 08/29/2021 12:34 PM EST Inhaled Oxygen Concentration - - Weight - - Height - - Body Mass Index - - documented in this encounter Discharge Instructions Discharge InstructionsJuan Ford RN - 08/29/2021 4:50 PM EST Radial Access for Heart Cath Activity If you are discharged the same day as your procedure, do not drive yourself home. Arrange to have another person drive. You may walk around when you get home, but keep your activity at a minimum until the morning. Try to avoid bending your wrist for the first 12-24 hours after the procedure to allow the artery tofully heal. Do not participate in active sports for 48 hours. Do not lift anything greater than 5 lbs. You may engage in sexual activity after 48 hours. Catheter Insertion Area Care Take the dressing off of the catheter insertion site the morning following the procedure. Leave the site open to air. If the site is oozing you may cover it with a band aid. You may take a shower if you wish. Look for signs of infection over the next several days. It is uncommon to have any visible blood at the site, any obvious bleeding is abnormal. A bruise around the wrist or small lump under the skin is normal: they generally disappear in 3-5 days. Expect some mild tenderness over the area where the catheter was inserted. You will notice this after the local anesthetic (numbing medicine) wears off. This should improve during the 24-48 hours afterthe procedure. You may use acetaminophen (tylenol) if needed. Contact your doctor if the discomfort w orsens. Problems to Watch for If there is bright red blood flowing from the catheter insertion area: *stop what you are doing *hold pressure steadily on the area for 15 minutes *call for help *if the bleeding does not stop in 15 minutes call 911 for an ambulance. If there is swelling with black and blue color at the catheter insertion site, there may be bleeding inside. Contact the doctor if there is any increase in size. Look at the insertion site for the first few days at home. Signs of infection are: *redness *swelling *yellow, white, green or brown foul smelling drainage. *increased soreness If you think there is an infection, take your temperature. Then call your doctor. The limb on the side where you had your catheterization should look and feel normal in color, sensation, and temperature. If your hand or fingers become cool, pale, blue or change color contact your doctor. If you are having numbness or tingling in your fingers or hand contact your doctor. If you feel faint or dizzy, lie down with your feet elevated. Have someone call the doctor. If you are alert, drink fluids. How to Deal with Chest Pain If you had only the cardiac catheterization, treat any angina or chest discomfort as instructed. Stop what you are doing, and sit or lie down. If prescribed, take nitroglycerin under your tongue. If the angina isn't relieved, take another nitroglycerin in 5 minutes. After another 5 minutes, a third nit roglycerin may be taken. If the angina isn't improved you should call for an ambulance to bring you to the nearest hospital emergency room. If your angina is more frequent or severe than before, contact your doctor. We usually would not expect you to have angina after an angioplasty. If you do get angina, treat it as you did before, but also contact your doctor. Return to Work The doctor will usually have told you when to return to work. If you do not perform heavy physical labor, most people can return to work in a few days. Diet Follow your previous diet unless otherwise instructed. Cardiac Risk Factor If you have coronary artery disease, it is important that you help control it by reducing your cardiac risk factors. If you smoke, we urge you to stop now. If you think this is going to be a problem, let us know so that we may help you. We have dieticians who can help you learn about a low fat, low cholesterol diet. Cardiac rehabilitation programs can help you set up a regular exercise program. Work with your doctor if you have high blood pressure or sugar diabetes to keep these under control. Medications Take your usual medications medication changes If you are taking medications prescribed by your doctor, do not take any actl-mpr-wlggbav medicines or herbal preparations without first discussing this with your doctor or pharmacist. There is the possibility of side effects and interactions when these are combined. Follow Up Care Who to call with questions or problems If there are any questions or problems that you think might be related to your cardiac cath or angioplasty, contact the yarn spinner neonatal pediatric nurse by calling [facility] at . documented in this encounter Medications at Time [...] 24 hours documented as of this encounter Progress Notes Juan Ford RN - 08/29/2021 5:32 PM EST Patient alert and oriented, vital signs stable. Reviewed discharge instructions; patient and her friend Antionette verbalized understanding. Copy of instruction sheet with contact numbers for questions/concerns provided. Pain assessment documented. Sling applied to RUE and patient escorted out of department via wheelchair with Jez BEST. documented in this encounter H&P Notes Eugenio Story MD - 08/29/2021 12:13 PM EST Images from the original note were not included. Zeny Joe is a 81 y.o. female referred for cardiac catheterization by Dr. Sood for evaluation of LHC. 81F with history of COPD, HLD, HTN, R hip pain, anxiety and moderate to severe aortic valve stenosiswho presents for pre-TAVR LHC/RHC. She has had worsening symptoms over the past several months - combination of back pain and exertional shortness of breath. Recent echocardiogram from 05/27/21 showed LVEF 57% - peak gradient 52 / mean gradient 27, REGAN 0.91 cm2. BP 149/74 (BP Location (NBP): Left arm) Pulse 84 Temp 36.3 ??C (97.3 ??F) (Temporal) LMP (LMP Unknown) SpO2 99% Gen: Alert, comfortable appearing in NAD HEENT: EOMI, MMM Neck: Supple, no JVD CV: RRR, 3/6 crescendo-decrescendo systolic murmur Resp: CTAB, no W/R/R Abd: Soft, NT/ND, +BS Ext: No edema, clubbing, or cyanosis. Warm and well perfused. Pulses: 2+ bilateral radial pulses Labs reviewed and notable for: Lab Results Component Value Date WBC 9.3 08/24/2021 HGB 11.7 08/24/2021 HCT 35.9 08/24/2021 MCV 93.2 08/24/2021 PLATELET 288 08/24/2021 Lab Results Component Value Date CREATININE 1.17 08/24/2021 BUN 25 (H) 08/24/2021 NA 138 08/24/2021 K 4.3 08/24/2021 CL 100 08/24/2021 CO2 26 08/24/2021 A/P 81 y.o. female here for cardiac catheterization for pre-TAVR workup. Will proceed with C/RHC. - proceed as planned - consent signed - no apparent contraindication to DAPT - FULL code -12-Lead ECG reviewed ASA: 3: Patient with severe systemic disease Mallampati: III: only the base of the uvula can be seen Eugenio Story MD General Cardiology 08/29/21 12:13 PM [id number] documented in this encounter Miscellaneous Notes Brief Op Note - Issac Pena MD - 08/29/2021 1:12 PM EST Preliminary Cardiac Catheterization Procedure Note: Patient Name: Zeny Joe : [id number] MR#: [id number] Case Date: 08/29/2021 Welder Fitter Apprentice: Surgeon(s) and Role: * Issac Pena MD - Primary * Nba Bowman MD - Fellow Preoperative diagnosis: Screening for cardiovascular condition [Z13.6]Aortic valve stenosis, etiology of cardiac valve disease unspecified [I35.0] Postoperative diagnosis: * aortic stenosis * Procedure(s) performed: RHC Coronary angio Access: Right radial Right antecubital A time-out was conducted prior to the start of the procedure to verify the correct patient and procedure, procedure location, and all relevant critical information. Preliminary findings: Codominant circulation with no obstructive disease Normal right heart pressures. TAVR will be scheduled. The patient tolerated the procedures smoothly and was transferred from the cardiac catheterization lab to the next level of care in stable condition. No evident early complications. Full report to follow. Issac Pena MD Consult Note - Issac Pena MD - 08/29/2021 12:15 PM EST Images from the original note were not included. [facility] [place] [address] [place] [address] CARDIOVASCULAR MEDICINE OUTPATIENT CONSULTATION [facility] Zeny Joe Primary Care Provider: Zoey Lucas MD REFERRING PROVIDER: Yuki Sood CHIEF COMPLAINT: Aortic stenosis PROBLEM LIST: 1. Aortic stenosis A. Aortic valve area 0.91 cm??, peak/mean gradient 52/27 mmHg, stroke-volume index 35, EF preserved 2. Lumbar spinal stenosis with neurogenic claudication A. Limiting back pain, ambulates with rolling walker 3. Essential hypertension 4. S/p left upper lobectomy for tumor (benign) 5. Previous tobacco abuse 6. 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 Yuki Sood. Social history: She lives in [facility], where she retired along with her 25 years ago. Her 13 years ago, and she has a son in the area. 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 She still enjoys walking, and spending time with family. She smoked until age 41 at which time she had a leftupper lobectomy for possible lung CA which ended up being benign. Her medical history is notable for progressive [...] no dizziness, no syncope, and no presyncope. Other medical history is notable for hypertension for which she is on multiple meds and depression. She is on steroids for her neurogenic back pain. PAST MEDICAL HISTORY (Problem List) Patient Active Problem List Diagnosis ??? Giant cell arteritis ??? Vision loss of left eye SOCIAL HISTORY: Reviewed and updated as appropriate in the medical record. FAMILY HISTORY: Reviewed and updated as appropriate in the medical record. Review of Systems: No flowsheet data found. As noted in the the HPI; all others negative MEDICATIONS: Calcium carbonate/vitamin D Celexa 10 mg daily Hydrochlorothiazide 25 mg daily Toprol XL 25 mg daily Losartan 25 mg daily Aspirin 81 mg daily Amlodipine 5 mg daily Prednisone (for spinal stenosis) ALLERGIES: Reviewed and updated as appropriate in the medical record. PHYSICAL EXAMINATION: BP 149/74 (BP Location (NBP): Left arm) Pulse 84 Temp 36.3 ??C (97.3 ??F) (Temporal) LMP (LMP Unknown) SpO2 99% Exam Details: Pleasant patient who is in no distress. [...] and appropriate with a grossly nonfocal exam. Lab Results Component Value Date WBC 9.3 08/24/2021 HGB 11.7 08/24/2021 HCT 35.9 08/24/2021 MCV 93.2 08/24/2021 PLATELET 288 08/24/2021 Lab Results Component Value Date NA 138 08/24/2021 K 4.3 08/24/2021 CL 100 08/24/2021 CO2 26 08/24/2021 BUN 25 (H) 08/24/2021 CREATININE 1.17 08/24/2021 GLUCOSE 133 08/24/2021 CALCIUM 10.4 08/24/2021 ESTGFR 44 (L) 08/24/2021 Lipid Panel Lab Results Component Value Date CHLPL 277 01/22/2018 ASSESSMENT: 1. Aortic stenosis 2. Lumbar spinal stenosis with neurogenic claudication 3. Hypertension 4. Status post left upper lobectomy for benign tumor 5. Status post remote nephrectomy RECOMMENDATIONS: At today's visit, we discussed the natural history of aortic valve stenosis. We reviewed the treatment options including medical therapy, surgical aortic valve replacement, palliation, and transcatheter aortic valve replacement. We discussed the intricacies of each approach, the pros and the cons, anddiscussed the rationale for considering one versus another. We also reviewed the data suggesting equipoise between a surgical approach and a transcatheter approach in most patients, with differing risks between the two procedures, We reviewed the recent data suggesting lower risk patients may have improved short and intermediate outcomes with TAVR when compared to surgery, at the cost of higher pacemaker rates and unknown alf (>7 year) valve durability. We reviewed that medical therapy has been proven to be inferior to TAVR and surgery in terms of overall survival. Shared decision making was undertaken regarding the above options. After reviewing all of the information, the patient's questions were answered. We reviewed the results of testing from today's visit and previous visits related to aortic valve disease. The next steps will include: 1. Heart team discussion has occurred, and TAVR seems most reasonable. We will plan for TAVR in the coming weeks. 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 Thank you for requesting this consultation. documented in this encounter Plan of Treatment Not on filedocumented as of this encounter Procedures Procedure Name Priority Date/Time Associated Diagnosis Comme nts POINT OF CARE BLOOD GAS Routine 08/29/2021 1:44 R esults for this HISTORICAL PM EST procedure are i n the results section. CARDIAC CATHETERIZATION Routine 08/29/2021 1:12 Screening for Results for this PM EST cardiovascular procedure are in condition the results Aortic valve section. stenosis, etiology of cardiac valve disease unspecified Aortic valve dis ease Dyspnea, unspecified type documented in this encounter Results (ABNORMAL) Point of Care Blood Gas Historical (08/29/2021 1:44 PM EST) [facility] Method Time Signature POC pH 7.43 7.35 - [facility] 7.45 [facility] POC PCO2 35 35 - 45 [facility] LABORATORY POC PO2 77 (L) 85 - 104 [facility] LABORATORY POC Base Excess -1.0 -3.0 - 3.0 [facility] K mmol/L [facility] POC HCO3 23.3 20.0 - [facility] 26.0 [facility] mmol/L [facility] POC Sodium 138 135 - 145 [facility] mmol/L [facility] POC Potassium 3.9 3.5 - 5.0 [facility] mmol/L [facility] POC Hematocrit 32.0 (L) 34.0 - [facility] 45.0 % [facility] POC Calc Hgb 10.9 (L) 11.2 - [facility] 15.7 g/dL [facility] Comment: The calculation of hemoglobin f rom hematocrit assumes a normal MCHC. POC Bgas Loc CC LAB [facility] Specimen Anatomical Collection Method Collection Time Receive d Time (Source) Location / / Volume Laterality Blood 08/29/2021 1:44 PM 9:00 EST AM EST Issac Pena MD CHEMISTRY ORDERABLES Performing Organization Address City/State/[place] [address] CARDIAC CATHETERIZATION (08/29/2021 1:12 PM EST) Anatomical Region Laterality Modality Other Specimen (Source) Anatomical Location Collection Method / Collectio n Time Received Time / Laterality Volume Narrative 08/29/2021 4:04 PM EST ?[facility] ? Cardiac Cathete rization/Intervention Report ? Patient Name: Zeny Joe ? Procedure Date: 08/29/2021 ? A #: [id number] ? Primary Physician: Jean, Issac T ? Case #: [id number] ? File Name: [id number] ? Catheterization Order Number: [id number] ? [facility] ? Final Report [place], [place] ? Patient Name: ? Zeny L. Kal e ?ID#: ?[id number] ? : ?1940 ? Procedure Date: ? November 16, 20 21 ?Case #: ? [id number] ? Room: ? 6 ? Case Physician: ? Issac Pena M.D. ?Start: ?12:40 ?Fellow: ? Nba E G acad, M.D. ?Admission: ??08/29/2021 ? Referring Physician: ??Yuki Sood M.D. ? Procedures: ?* Coronary Angiography ?* Right Heart Catheterization ?* Oximetry ?* Arterial Blood Gases ? History ?Zeny MelaraKj Joe is an 81 year o ld woman. She has hypertension. The ?patient's smoking status is For palomo. She has hypercholesterolemia ?controlled by diet. The patient also has a history of chronic obstructive ?pulmonary disease. Prior to the initiation of this procedure, the patient ?was designated as ASA Class III . The [facility] clinical frailty scale is 6: ?Moderately Frail. ? Diagnostic Tests: ?Prior Coronary Angiography: ? LV ejection fraction wit hin 6 months is 57%. ?Medications Prior to Procedure: ? Aspirin, Angiotensin II Receptor Karly, Beta Karly and Calcium ? Channel Blocking Agent. ? Indications for Diagnostic Cath: ?The priority of the diagnostic procedure was Elective. Chest pain symptom ?assessment was: Asymptomatic. O ne of the indications for cath is valvular ?heart disease. The patient has Severe aortic stenosis. ? Technique: ?A 6 SLFr sheath was inserted in the right radial artery utilizing the ?Seldinger technique. A 5 SLFr s monse was inserted in the right median ?antecubital vein utilizing the Seldinger technique. The left coronary ?artery was injected utilizing a 5Fr ERLINDA RADIAL catheter. A 5Fr ERLINDA ?RADIAL catheter was used to inj ect the right coronary artery. Right heart ?catheterization was performed u tilizing a 6Fr BALLOON WEDGE catheter. ?4,500 units of heparin were adm inistered. A total of 100cc of Omnipaque ?were opened, 55cc of Omnipaque were administered and 45cc of Omnipaque ?were wasted. Radiation: Fluoro time was 5.6 minutes, dose area product ?was 25,618 mGYcm2 and air kerma was 454 mGY. See the case log for ?additional details. ?The patient received the follow ing medications prior to and during the ?procedure: ? Unfractionated Heparin. ? Hemodynamics: ?Right Heart Pressures ? Resting: ? Syst D iast ? EDP ?a ?v ? m ?RA ? 8 ?4 ? 3 ?RV 40 ?7 ?PA 38 ? 7 ?20 ?PCW ?19 ?13 ?10 ? Hemodynamic Profile: ?Profile 1 ?CO ? 6.09 ?CI ? 3.35 ?TSR ? 1,366 ?SVR ? 1,327 ?TPR ?263 ?PVR ?131 ?Techniq ue ?Estimated Indu ?Left Heart Pressures ? Resting: ? Syst D iast ? EDP ?a ?v ? m ?Ao 157 ?? 70 ?104 ? Oximetry: ?Location ? % Sat ?Location ?%Sat ?Main Pulmonary Artery ??71.0 ?Peripheral Arterial ? 96.0 ? Coronary Angiography: ?Dominance: Co-dominant ?Left Main ? The left main was normal , free of disease. ?Left Anterior Descending ? There was mild diffuse ( <=25% stenosis) disease of the entire vessel ? segment of the left ante rior descending artery (LAD). ?Left Circumflex ? There was mild diffuse ( <=25% stenosis) disease of the entire vessel ? segment of the left circ umflex artery (LCX). ?Right Coronary Artery ? There was mild diffuse ( <=25% stenosis) disease of the entire vessel ? segment of the right cor onary artery (RCA). ? Vascular Access: ?Vascular Access Management: ? Manual Compression of th e right median antecubital vein access site ? was performed. ? Mechanical Compression o f the right radial artery access site was ? performed. ? Point of Care Testing: ?ABG: ? Arterial Blood gasses we re performed using the I-Stat analyzer at ? 12:45: pH: 7.42, pCO2: 3 5.3, pO2: 77.0, sPO2: 96%, HCO3: 23 on FIO2: ? 100. ?I-Stat: ? I-Stat was performed usi ng the I-Stat analyzer at 12:45: Na+: 138, ? K+: 3.9, Hct: 32%, Hb: 1 0.9. ? Conclusions: ?* Nonobstructive coronary arter y disease ?* Mild pulmonary hypertension ? Complications/Events: ?The patient had no complication s during these procedures. ?The attending physician was presen t for the entire procedure. ?Dr. Issac Pena M.D. was pres ent during the moderate sedation ?intraservice time as documented by the sedation nurse. ??Case time = 00:24. ?Dr. Issac Pena M.D. performe d the coronary angiography, right heart ?catheterization, oximetry and ABG. ? Issac Rizvi Jean, M.D. ? Electronically Signed by: Issac Nash s, M.D. ? Report Finalized: 08/29/2021 ??15:55 ? Procedure Note Issac Pena MD - 08/29/2021Formatt ing of this note might be different from the original. [facility] Cardiac Catheterization/Intervention Re port Patient Name: Zeny Joe Procedure Date: 08/29/2021 A #: [id number] Primary Physician: Issac Pena Case #: [id number] File Name: [id number] Catheterization Order Number: [id number] [facility] [place], [place] Patient Name: Zeny Joe ID#: [id number] : 1940 Procedure Date: August 29, 2021 Case # : [id number] Room: 6 Case Physician: Issac Pena M.D. art: 12:40 Fellow: Nba Bowman M.D. Admission : 08/29/2021 Referring Physician: Yuki Sood M.D. Procedures: * Coronary Angiography * Right Heart Catheterization * Oximetry * Arterial Blood Gases History Zeny Joe is an 81 year old woman . She has hypertension. The patient's smoking status is Former. She has hypercholesterolemia controlled by diet. The patient also prieto s a history of chronic obstructive pulmonary disease. Prior to the initiat ion of this procedure, the patient was designated as ASA Class III. The [facility] clinical frailty scale is 6: Moderately Frail. Diagnostic Tests: Prior Coronary Angiography: LV ejection fraction within 6 months is 57%. Medications Prior to Procedure: Aspirin, Angiotensin II Receptor Blocke r, Beta Karly and Calcium Channel Blocking Agent. Indications for Diagnostic Cath: The priority of the diagnostic procedur e was Elective. Chest pain symptom assessment was: Asymptomatic. One of th e indications for cath is valvular heart disease. The patient has Severe a ortic stenosis. Technique: A 6 SLFr sheath was inserted in the rig ht radial artery utilizing the Seldinger technique. A 5 SLFr sheath wa s inserted in the right median antecubital vein utilizing the Seldinge r technique. The left coronary artery was injected utilizing a 5Fr [place] RADIAL catheter. A 5Fr ERLINDA RADIAL catheter was used to inject the right coronary artery. Right heart catheterization was performed utilizing a 6Fr BALLOON WEDGE catheter. 4,500 units of heparin were administere d. A total of 100cc of Omnipaque were opened, 55cc of Omnipaque were adm inistered and 45cc of Omnipaque were wasted. Radiation: Fluoro time was 5.6 minutes, dose area product was 25,618 mGYcm2 and air kerma was 454 mGY. See the case log for additional details. The patient received the following medi cations prior to and during the procedure: Unfractionated Heparin. Hemodynamics: Right Heart Pressures Resting: Syst Diast EDP a v m RA 8 4 3 RV 40 7 PA 38 7 20 PCW 19 13 10 Hemodynamic Profile: Profile 1 CO 6.09 CI 3.35 TSR 1,366 SVR 1,327 TPR 263 PVR 131 Technique Estimated Indu Left Heart Pressures Resting: Syst Diast EDP a v m Ao 157 70 104 Oximetry: Location %Sat Location %Sat Main Pulmonary Artery 71.0 Peripheral A rterial 96.0 Coronary Angiography: Dominance: Co-dominant Left Main The left main was normal, free of disea se. Left Anterior Descending There was mild diffuse (<=25% stenosis) disease of the entire vessel segment of the left anterior descending artery (LAD). Left Circumflex There was mild diffuse (<=25% stenosis) disease of the entire vessel segment of the left circumflex artery ( LCX). Right Coronary Artery There was mild diffuse (<=25% stenosis) disease of the entire vessel segment of the right coronary artery (R CA). Vascular Access: Vascular Access Management: Manual Compression of the right median antecubital vein access site was performed. Mechanical Compression of the right rad ial artery access site was performed. Point of Care Testing: ABG: Arterial Blood gasses were performed us ing the I-Stat analyzer at 12:45: pH: 7.42, pCO2: 35.3, pO2: 77.0, sPO2: 96%, HCO3: 23 on FIO2: 100. I-Stat: I-Stat was performed using the I-Stat a nalyzer at 12:45: Na+: 138, K+: 3.9, Hct: 32%, Hb: 10.9. Conclusions: * Nonobstructive coronary artery diseas e * Mild pulmonary hypertension Complications/Events: The patient had no complications during these procedures. The attending physician was present for the entire procedure. Dr. Issac Pena M.D. was present d uring the moderate sedation intraservice time as documented by the sedation nurse. Case time = 00:24. Dr. Issac Pena M.D. performed the coronary angiography, right heart catheterization, oximetry and ABG. Issac Pena M.D. Electronically Signed by: Issac su M.D. Report Finalized: 08/29/2021 15:55 Issac Pena MD CARDIAC CATH ORDERABLES documented in this encounter Visit Diagnoses Diagnosis Screening for cardiovascular condition Screening for other and unspecified card iovascular conditions Aortic valve stenosis, etiology of cardi ac valve disease unspecified Aortic valve disease Aortic valve disorders Dyspnea, unspecified type Screening for cardiovascular condition Screening for other and unspecified card iovascular conditions Aortic valve stenosis, etiology of cardi ac valve disease unspecified Aortic valve disease Aortic valve disorders Dyspnea, unspecified type documented in this encounter Administered Medications Inactive Administered Medications - up to 3 most recent administrations Medication Order MAR Action Action Date Dose Rate Site fentaNYL (pf) (50 mcg/mL) Given 08/29/2021 12:43 PM EST 12.5 mcg multi-dose injection ONCE PRN, Starting on Sat08/29/21 at 1243, Until Sat08/29/21 at 1725, Intra-Operative (Intra-Procedure), Routine heparin (porcine) (1,000 units/mL) Given 08/29/2021 12:58 PM EST 4,500 Units injection ONCE PRN, Starting on Sat08/29/21 at 1258, Until Sat08/29/21 at 1725, Cath (Intra-Procedure), Routine iohexoL (Omnipaque) (350 mg/mL) injection Given 08/29/2021 1:07 PM EST 55 mLs solution ONCE PRN, Starting on Sat08/29/21 at 1307, Until Sat08/29/21 at 1725, Cath (Intra-Procedure), Routine midazolam (pf) (Versed) (1 mg/mL) multi-dose Given 12:42 PM EST 0.5 mg injection ONCE PRN, Starting on Sat08/29/21 at 1242, Until Sat08/29/21 at 1725, Cath (Intra-Procedure), Routine sodium chloride 0.9% infusion New Bag 08/29/2021 1:25 PM EST 50 mL/hr 50 mL/hr 50 mL/hr, Intravenous, CONTINUOUS, Starting on Sat08/29/21 at 1345, Until Sat08/29/21 at 1644, Recovery (Recovery-Hospital Unit) verapamiL (Isoptin) (2.5 mg/mL) injectio n Given 08/29/2021 12:56 PM EST 2.5 mg ONCE PRN, Starting on Sat08/29/21 at 1256, Until Sat08/29/21 at 1725, Administer over 2 Minutes, Cath (Intra-Procedure) documented in this encounter Active and Recently Administered Medications Times are shown in EST. Continuous Medication Order 08/27/2021 08/28/2021 08/29/2021 sodium chloride 0.9% infusion 13 25 (New Bag - Provider: Cosmo Sears RN) 50 mL/hr, Intravenous, CONTINUOUS, Start ing on Sat08/29/21 at 1345, Until Sat08/29/21 at 1644, Recovery (Recovery-Hospital Unit) PRN Medication Order 08/27/2021 08/28/2021 08/29/2021 fentaNYL (pf) (50 mcg/mL) multi-dose injection (CANCELED) 1243 (Given - Provider: Laurie Lopez RN) ONCE PRN, Starting on Sat08/29/21 at 12 43, Until Sat08/29/21 at 1725, Intra- Operative (Intra-Procedure), Routine heparin (porcine) (1,000 units/mL) injection (CANCELED) 1258 (Given - Provider: Laurie Lopez RN) ONCE PRN, Starting on Sat08/29/21 at 12 58, Until Sat08/29/21 at 1725, Cath (Intra-Procedure), Routine iohexoL (Omnipaque) (350 mg/mL) injection solution (CANCELED) 1307 (Given - Provider: Laurie Lopez, DAVE) ONCE PRN, Starting on Sat08/29/21 at 13 07, Until Sat08/29/21 at 1725, Cath (Intra-Procedure), Routine midazolam (pf) (Versed) (1 mg/mL) multi-dose injection (CANCELED ) 1242 (Given - Provider: Laurie Lopez RN) ONCE PRN, Starting on Sat08/29/21 at 12 42, Until Sat08/29/21 at 1725, Cath (Intra-Procedure), Routine verapamiL (Isoptin) (2.5 mg/mL) injection (CANCELED) 1256 (Given - Provider: Nab Bowman MD) ONCE PRN, Starting on Sat08/29/21 at 12 56, Until Sat08/29/21 at 1725, Administer over 2 Minutes, Cath (Intra-Procedure) documented in this encounter Care Teams Shoulder Joiner Relationship Specialty Start Date End Date Zoey Lucas MD PCP - General 09/05/10 [address] [place] [address] documented as of this encounter
--- OUTSIDE RECORDS SUMMARY | 2022-07-27 00:17 | XMS_ITS | Encounter Summary ---
:1940 Author Organization [facility] Address [address] [place] [address] Care Team Providers Name Role Phone Zoey Lucas MD Primary Care Provider Encounter Details Date Type Department Care Team Description 05/16/2021 Ancillary Procedure Radiology Library at Zoey Harris MD [facility] [address] [address] [place], [place] [phone] (Wo rk) [phone] Social History Tobacco Use Types Packs/Day Years [...] Associated Diagnosis Comme nts FILM LIBRARY Routine 05/16/2021 12:00 AM Results for this STORAGE ONLY DX EDT procedure ar e in SPINE the results section. documented in this encounter Results Film Library- Storage Only DX Spine (05/16/2021 12:00 AM EDT) Specimen (Source) Anatomical Location Collection Method / Collectio n Time Received Time / Laterality Volume Narrative [facility] - 07/12/2021 10:44 AM EDT This exam is auto-finalizing. It's purpo se is for storage only. Zoey Lucas MD IMG FILM LIBRARY ORDERABLES Performing Organization Address City/State/ZIP Code Phon e Number [place], [place] documented in this encounter Visit Diagnoses Not on filedocumented in this encounter Care Teams Sign Wirer Relationship Specialty Start Date End Date Zoey Lucas MD PCP - General 09/05/[address] [place] [address] documented as of this encounter
--- OUTSIDE RECORDS SUMMARY | 2022-07-27 00:17 | XMS_ITS | Encounter Summary ---
:1940 Author Organization [facility] [place] [address] Care Team Providers Name Role Phone Zoey Lucas MD Primary Care Provider Encounter Details Date Type Department Care Team Description 10/29/2021 Public Health Public Health at [facility] C COVID[place] [address] Social History Tobacco Use Types Packs/Day [...] Name Priority Date/Time Associated Diagnosis Comme nts COVID-19 PCR Routine 10/29/2021 2:56 PM COVID-19 ruled out Res ults for this EST procedure are i n the results section . documented in this encounter Results COVID-19 PCR (10/29/2021 2:56 PM EST) [facility] Method Time Signature SARS-CoV-2 Not Detected Not Detected JANI RNA [facility] Comment: This result should be interpreted in com bination with the clinical observations, patient history and epidem iological information in making a final diagnosis. For testing of asymptomatic i ndividuals, assay performance characteristics and clinical utility hav e not been evaluated. Testing for SARS-CoV-2 (Severe acute respiratory syn drome coronavirus 2, formerly known as 2019 novel coronavirus or 2019-nCoV) to aid in the diagnosis of COVID-19 is performed using the [employer] HOWARD S-CoV-2 Assay as authorized by the FDA Emergency Use Authorization (EUA). This EUA assay is intended for In-vitro Diagnostic (IVD) use with respiratory sp ecimens such as nasopharyngeal swabs collected from individuals during the ac preston phase of infection. This assay is performed based on the instructions for use provided by [employer] and additional guidance provided by CDC and FDA. Testing is performed in the [facility] Laboratory within the Department of Pathology and Laboratory Medicine at [facility], certified under the Clinical Laboratory Improvement Amendments of 1988 (CLIA), 42 U.S.C. 263a, to perform high complexi ty tests. Assay performance has been verified according to clinical laborator y regulatory requirements for use with specimens collected from individuals nikko pected of COVID-19. Test results are provided above. A result of Not Detecte d indicates that the viral RNA target is not present above the limit of detect ion, but does not preclude SARS-CoV-2 infection. False negative results may oc cur if a specimen is improperly collected, transported or handled; if am plification inhibitors are present; or if inadequate numbers of viral particles are present in the specimen. When a diagnostic test is negative, the possibi lity of a false negative result should be considered in the context of a patien t's recent exposures and the presence of clinical signs and symptoms consisten t with COVID-19. A result of Detected indicates that RNA from SARS-CoV-2 was d etected and the patient is infected. As required or requested by public health a uthorities, positive specimens may be sent for additional testing. Positive an d negative predictive values for this test are highly dependent on disease pre valence. A result of Invalid indicates that neither the viral RNA tar gets nor the internal control target was detected. An invalid result suggests the presence of inhibitors. Recollection and re-testing is recommend ed in the case of an invalid result. CDC COVID-19 criteria for testing on hum an specimens and clinical management guidance information are available at [facility] Coronavirus Disease 2019 (COVID-19) webpage under Information fo r Healthcare Professionals (https://www.cdc.gov/coronavirus/2019-nc ov/hcp/index.html) Additional information about this and ot her EUA tests can be found in provider and patient fact sheets at the following FDA website: https://www.fda.gov/medical-devices/knrmyflwyxv-cuydkjr-6682-bxjuk-83-thsttobaq- vzx-cwuivtenxpqlhi-vzpojok-devices/mcmuw-yjpwirfdobb-vzyp SARS-Cov-2 RNA Source [facility] Specimen (Source) Anatomical Collection Method Collection Time Re ceived Time Location / / Volume Laterality Nasopharyngeal Swab 10/29/2021 2:56 10/29 PM EST 2:56 PM EST Comment: Symptoms->Asymptomatic Resulting Agency Comment Spec In Lab Issac Mcdowell MD MICROBIOLOGY - GENERAL ORDER ROLAND Performing Organization Address City/State/[place] [address] documented in this encounter Visit Diagnoses Diagnosis COVID-19 ruled out documented in this encounter Care Teams Science Editor Relationship Specialty Start Date End Date Zoey Lucas MD PCP - General 09/05/[address] [place] [address] documented as of this encounter
--- OUTSIDE RECORDS SUMMARY | 2022-07-27 00:17 | XMS_ITS | Encounter Summary ---
:1940 Author Organization [facility] Address [address] [place] [address] Care Team Providers Name Role Phone Zoey [...] Expiration Date Visits Requ ested Visits Authorized [id number] 1 1 Encounter Details Date Type Department Care Team Description 11/17/2021 Anesthesia Event Social Work Administrator Rosita Barnard MD [facility] [address] [place] [address] [facility] Shady Danielson MD [facility] [place] [address] [facility] [place] [address] Anesthesia Record Procedure Summary Procedure Name Responsible Anesthesia Start Anesthesia Stop Anesthesiologist Time Time CARDIAC CATHETERIZATION Rosita Christensen MD 11/17/21 0830 02/02 1000 (N/A ) Events Date Time Event Comment 11/17/2021 0830 AN Verify 0830 Start 0830 An Start Data 0850 Anesthesia Ready 0857 Procedure Start 0902 Test Transvenous Pacing 0908 Heparin 0917 Rapid Ventricular Pacing 0918 Ao Valve Deployment 0921 Protamine 0953 an stop data 1000 Recovery or ICU Handoff Patient care was transferred to the destination unit staff after review of the patient's medica l history, current anesthetic/surgi qian status and plan, according to the Provider Handoff Checklist. 1000 Stop 11/21/2021 0728 Name Total fentaNYL 100 mcg Heparin 6,500 Units Protamine 40 mg Ondansetron 4 mg Vancomycin 1.5 g Dexmedetomidine 20 mcg Dexmedetomidine INF 32.89 mcg cefTRIAXone 2 g PHENYLephrine INF 1,320 mcg Lactated Ringers 400 mL Agents Name O2 Air N2O Blood No blood administrations on file. Lines, Drains, and Airways Type Details Placement Removal Incision 10/25/15; temporal 10/25/15 0000 by 06/11/22 171 5 by region; 06/11/22 (Briseida Griffin RN Mull er, Elinare L cleanup utility RA#[id number]); 1715 (Health Benefits Direct cleanup utility RA#[id number]) Incision 10/25/15; temporal 10/25/15 0000 by 06/11/22 171 5 by region; 06/11/22 (Briseida Griffin RN Mull er, Elinare L cleanup utility RA#[id number]); 1715 (Health Benefits Direct cleanup utility RA#[id number]) Incision 12/05/16; eye; 06/11/22 12/05/16 0000 by 2 1715 by (LDA cleanup utility Christina Odonnell Mulle r Moni L RA#[id number]); 1715 (LDA RN cleanup utility RA#[id number]) PIV 11/17/21; 0800; cephalic 11/17/21 0800 by 2039 by vein (lateral side of Fishman, Kathy B, RN Kati cartwright, Stephanie Melara, arm), left; RN ykuz-lfm-pkuwqv catheter system; Anatomical Landmarks; US Not Used; 20 gauge, 1 in length; Radha Post, DAVE; distraction, intradermal injection, appears comfortable, tolerated well; 0; removed per policy/procedure, site care per policy/procedure, site symptomatic, catheter/device intact; 11/17/21; 2039 Arterial Line 11/17/21; 0843; radial 11/17/21 0843 by Ana, 1005 by artery, right; 20 gauge; MD Katina Benjamin is, Issac Peñaloza, Anatomical Landmarks, RN Guidewire; continuous blood pressure monitoring, frequent blood gas measurement; md ana; Sterile Prep, Sterile Gloves; no longer indicated; 11/17/21; 1005 LDA Cath/EP Sheath 11/17/21; 0900; 6 Mosotho 11/17/21 0900 by 02/02 0928 by (Fr); Left; Femoral Mildred Urbina RN Bradbur n, Mildred Gallagher RN LDA Cath/EP Sheath 11/17/21; 0900; 6 Mosotho 11/17/21 0900 by 02/02 0928 by (Fr); Left; Femoral; Mildred Urbina RN Bradbu rn, Mildred Gallagher RN Arterial LDA Cath/EP Sheath 11/17/21; 0901; 6 Mosotho 11/17/21 0901 by 02/02 0928 by (Fr); Right; Femoral; Mildred Urbina RN Bradb urn, Mildred Gallagher RN Arterial documented in this encounter Social History Tobacco Use Types Packs/Day Years [...] AM EDT documented as of this encounter OR Notes Anesthesia Postprocedure Evaluation - Amber Murray MD - 11/17/2021 10:01 AM EST Department of Anesthesiology Post-procedure Note Patient: Zeny Joe Procedure Summary Date: 11/17/21 Room / Location: [facility] [address] [place] [address] CATH LABS Anesthesia Start: 829 Anesthesia Stop: 999 Procedures: CARDIAC CATHETERIZATION (N/A ) COMBINED RIGHT & LEFT HEART CATH,INC INJ FOR L VENTRICULOGRAPHY (N/A ) @TRANSCATHETER AORTIC VALVE REPLACEMENT (TAVR), PERCUTANEOUS FEMORAL (WRVU 25.13) (N/A ) TRANSESOPHAGEAL ECHO DURING CATH/EP PROCEDURE (N/A ) Diagnosis: Severe aortic stenosis (Severe aortic stenosis [I35.0]) (TAVR) Providers: Issac Mcdowell MD; Uli Richardson MD; Rigoberto Aggarwal MD Responsible Provider: Rosita Christensen MD Anesthesia Type: MAC ASA Status: 3 All Anesthesia Providers: Anesthesiologist: Rosita Christensen MD Algorithm Developer: Amber Murray MD Vitals Value Taken Time BP Temp Pulse 65 11/17/21 1001 Resp 17 11/17/21 1001 SpO2 100 % 11/17/21 1001 Pain Level Vitals shown include unvalidated device data. Patient Location: PACU/[facility] Level of Consciousness: Awake and Alert Pain Management: Satisfactory Analgesia PONV: None Cardiovascular Status: At Baseline Respiratory Status: At Baseline Postoperative Fluid Status: Possible Anesthetic Complications: NONE apparent at time of evaluation Final Primary Anesthesia Type: MAC (The anesthetic type performed was the same as planned.) Comments: EKG ordered for suspected new bundle branch block Anesthesia Preprocedure Evaluation - Amber Murray MD - 11/16/2021 5:05 PM EST Pre-Anesthesia Evaluation for: Zeny Joe a 81 y.o. female. Procedure(s): CARDIAC CATHETERIZATION COMBINED RIGHT & LEFT HEART CATH,INC INJ FOR L VENTRICULOGRAPHY @TRANSCATHETER AORTIC VALVE REPLACEMENT (TAVR), PERCUTANEOUS FEMORAL (WRVU 25.13) TRANSESOPHAGEAL ECHO DURING CATH/EP PROCEDURE Patient Active Problem List Diagnosis Date Noted ??? Aortic valve stenosis 11/01/2021 ??? Aortic stenosis, severe 10/02/2021 ??? 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 Allergic [...] 11.08) performed by Primo Rodríguez MD at [facility] OSC ??? PRO TEMPORAL ARTERY LIGATN OR BX Bilateral 10/25/2015 LIGATION OR BIOPSY, TEMPORAL ARTERY performed by Sukhdev Bhatti MD at [facility] MAIN OR ??? YAG CAPSULOTOMY Right 03/20/2019 Social History Tobacco Use ??? Smoking status: Former Smoker Quit date: 10/20/1983 Years since quittin.1 ??? Smokeless tobacco: Never Used Substance Use Topics ??? Alcohol use: Not Currently Comment: occasionaly wine in summer Social History Substance and Sexual Activity Drug Use No Allergies Allergen Reactions ??? Red Blood Cells Other (See Comments) Antibodies-Difficult to Crossmatch DO NOT REMOVE Please contact the Blood Bank at [phone] for questions. ??? Beta-Blockers (Beta-Adrenergic Blocking Agts) ??? Doxazosin Mesylate ??? Lisinopril ??? Nickel Medications: MAR and/or home medications have been reviewed. Physical Exam: Preprocedure Vitals Current as of 11/16/21 1705 No BP, pulse, respiration, SpO2, or temperature recorded. Height: Weight: BMI: IBW: Airway Assessment: Mallampati: III TM distance: >3 FB Neck ROM: full Cardiovascular Assessment: Rhythm: regular Rate: normal system normal Pulmonary Assessment: breath sounds clear to auscultation pulmonary exam normal Dental Assessment: (+) upper dentures Misc Assessment: Last Filed Perioperative Cognitive Screening None Anesthesia Plan: ASA 3 MAC, 81 y.o. female BMI 31 former smoker with Severe presenting for TAVR Originally scheduled for 10/31/21 but postponed due to emergent add-ons. ?? PMH significant for HTN (HCTZ, losartan, metoprolol), Giant cell arteritis (prednisone) ?? NPO Appropriate. Questions answered. EKG NSR. ADR: -- Beta-Blockers (Beta-Adrenergic Blocking Agts) -- Doxazosin Mesylate -- Lisinopril -- Nickel ?? Cardiac Hx: 2020 TTE - EF57, normal RV, LA. Calcified gradient 52, normal aorta Aug 2021 Cath - Conclusions: * Nonobstructive coronary artery disease * Mild pulmonary hypertension ?? Anesthesia Hx: 2016 Temporal artery biopsy - MAC w/o issue ?? Plan MAC vs GA Pre-induction arterial line Standard ASA monitors ?? Amber Murray MD 10/30/2021 Director Of Cardiac Cath Lab Pager #[phone] Informed Consent: Anesthetic plan and risks discussed with patient. Use of blood products discussed with patient who consented to blood products. Plan discussed with resident and attending. Anesthesia Screening documented in this encounter Plan of Treatment Not on filedocumented as of this encounter Visit Diagnoses Not on filedocumented in this encounter Administered Medications Inactive Administered Medications - up to 3 most recent administrations Medication Order MAR Action Action Date Dose Rate Site cefTRIAXone (Rocephin) injection Given 11/17/2021 8:43 AM EST 2 g Intravenous, PRN, Starting on Sat11/17/21 at 0843, Until Sat11/17/21 at 1001, Anesthesia Intra-op, Routine dexmedetomidine (Precedex) (4 mcg/mL) bolus Given 11/17/2021 8:5 9 AM EST 4 mcg injection (Anesthsia) Intravenous, PRN, Starting on Sat11/17/21 at 0843, Until Sat11/17/21 at 1001, Anesthesia Intra-op, Routine Given 11/17/2021 8:54 AM EST 4 mcg Given 11/17/2021 8:50 AM EST 4 mcg dexmedetomidine (Precedex) Rate/Dose 11/17/2021 9:07 0.2 mcg/kg/hr 3.9 mL/hr (4 mcg/mL) in sodium Change AM EST chloride 0.9% 50 mL infusion Intravenous, CONTINUOUS PRN, Starting on Sat11/17/21 at 0836, Until Sat11/17/21 at 1001, Anesthesia Intra-op New Bag 11/17/2021 8:36 AM EST 0.7 mcg/kg/hr 13.65 mL/hr fentaNYL (pf) (50 mcg/mL) multi-dose Given 11/17/2021 9:00 AM ES T 25 mcg injection Intravenous, PRN, Starting on Sat11/17/21 at 0844, Until Sat11/17/21 at 1001, Anesthesia Intra-op, Routine Given 11/17/2021 8:54 AM EST 25 mcg Given 11/17/2021 8:50 AM EST 25 mcg heparin (porcine) (1,000 units/mL) Given 11/17/2021 9:08 AM EST 6,500 Units injection Intravenous, PRN, Starting on Sat11/17/21 at 0908, Until Sat11/17/21 at 1001, Anesthesia Intra-op, Routine lactated ringers infusion New Bag 11/17/2021 8:30 AM EST Intravenous, CONTINUOUS PRN, Starting on Sat11/17/21 at 0830, Until Sat11/17/21 at 1001, Anesthesia Intra-op ondansetron (pf) (Zofran) (2 mg/mL) inje ction Given 11/17/2021 9:46 AM EST 4 mg Intravenous, PRN, Starting on Sat11/17/21 at 0946, Until Sat11/17/21 at 1002, Anesthesia Intra-op, Routine PHENYLephrine (Hector-Synephrine) Rate/Dose Change 11/17/2021 9:33 20 mcg/min 15 mL/hr (80 mcg/mL) in sodium chloride AM EST 0.9% 250 mL infusion Intravenous, CONTINUOUS PRN, Starting on Sat11/17/21 at 0905, Until Sat11/17/21 at 1001, Anesthesia Intra-op, Routine Rate/Dose Change 11/17/2021 9:28 AM EST 40 mcg/min 30 mL/hr Restarted 11/17/2021 9:25 AM EST 20 mcg/min 15 mL/hr protamine (10 mg/mL) injection Given 11/17/2021 9:21 AM EST 40 mg Intravenous, PRN, Starting on Sat11/17/21 at 0921, Until Sat11/17/21 at 1001, Anesthesia Intra-op, Routine vancomycin (Vancocin) injection Given 11/17/2021 8:43 AM EST 1.5 g Intravenous, PRN, Starting on Sat11/17/21 at 0843, Until Sat11/17/21 at 1001, Anesthesia Intra-op, Routine documented in this encounter Care Teams Seed Production Field Supervisor Relationship Specialty Start Date End Date Zoey Lucas MD PCP - General 09/05/10 [facility] [address] [place] [address] documented as of this encounter
--- OUTSIDE RECORDS SUMMARY | 2022-07-27 00:17 | XMS_ITS | Encounter Summary ---
:1940 Author Organization [facility] [place] [place] [address] Care Team Providers Name Role Phone Zoey Lucas MD Primary Care Provider Encounter Details Date Type Department Care Team Description 08/29/2021 Notes Only Cardiology at [facility] Phoebe Restrepo, [place] [address] Social History Tobacco Use Types Packs/Day [...] encounter Progress Notes Phoebe Restrepo, DAVE - 08/29/2021 2:03 PM ESTSummary: Structural Heart Spoke with Ms Joe regarding her interest in scheduling TAVR as discussed during Structural Heart SDM evaluation. She voices preference to proceed as soon as possible. We discussed timelines for procedure; symptoms to monitor while waiting; when to seek urgent care; pre/post procedure education and ins tructions. She exhibits understanding. Plan: TAVR SatNov 01 documented in this encounter Plan of Treatment Not on filedocumented as of this encounter Visit Diagnoses Not on filedocumented in this encounter Care Teams Sand Temperer Relationship Specialty Start Date End Date Zoey Lucas MD PCP - General 09/05/[address] [place] [address] documented as of this encounter
--- OUTSIDE RECORDS SUMMARY | 2022-07-27 00:17 | XMS_ITS | Encounter Summary ---
:1940 Author Organization [facility] [place] [address] Care Team Providers Name Role Phone Zoey Lucas MD Primary Care Provider Encounter Details Date Type Department Care Team Description 07/24/2021 [place] [address] Social History Tobacco Use Types Packs/Day [...] this encounter Miscellaneous Notes Telephone Encounter - Jazz Lucio - 07/24/2021 11:56 AM EDTSummary: Requested TTE images & report Requested images and report from Dr. Sood's office for TAVR eval. documented in this encounter Plan of Treatment Not on filedocumented as of this encounter Visit Diagnoses Not on filedocumented in this encounter Care Teams Rag Cutting Machine Feeder Relationship Specialty Start Date End Date Zoey Lucas MD PCP - General 09/05/10 [address] [place] [address] documented as of this encounter
--- OUTSIDE RECORDS SUMMARY | 2022-07-27 00:17 | XMS_ITS | Encounter Summary ---
:1940 Author Organization [facility] [place] [address] Care Team Providers Name Role Phone Zoey Lucas MD Primary Care Provider Encounter Details Date Type Department Care Team Description 11/01/2021 Telephone Public Health at [facility] [place] [address] Social History Tobacco Use Types Packs/Day [...] this encounter Miscellaneous Notes Telephone Encounter - Jaclyn Temple - 11/01/2021 11:33 AM EST Telephone call placed/received to schedule covid 19 testing with patient. Ordering provider: Dr. Estrada Pena Testing Facility: [facility] Date of Testin11/14/2021 Time of Testing: TBD Symptoms: No Employee or Household Member of Employee No Healthcare Worker No documented in this encounter Plan of Treatment Not on filedocumented as of this encounter Visit Diagnoses Diagnosis Encounter for preprocedure screening lab oratory testing for COVID-19 documented in this encounter Care Teams Sewer Digger Relationship Specialty Start Date End Date Zoey Lucas MD PCP - General 09/05/[address] [place] [address] documented as of this encounter
--- OUTSIDE RECORDS SUMMARY | 2022-07-27 00:17 | XMS_ITS | Encounter Summary ---
:1940 Author Organization [facility] Address [address] [place] [address] Care Team Providers Name Role Phone Zoey Lucas MD Primary Care Provider Encounter Details Date Type Department Care Team Description 08/24/2021 Laboratory Lab 3L Yuki Severe aortic s tenosis; Appointment [facility] Screening for cardiovascular condition; [facility] Aortic valve stenosis, etiol ogy of cardiac valve disease unspecified; [facility] Aortic va lve disease; Drive Dys[place], [place] [address] Social History Tobacco Use Types Packs/Day Years [...] Priority Date/Time Associated Comments Diagnosis HEMOGRAM Routine 08/24/2021 10:03 Severe aortic Results fo r this AM EST stenosis procedure are i n the results section. DIFFERENTIAL, Routine 08/24/2021 10:03 Severe aortic Results f or this AUTOMATED AM EST stenosis procedure are i n the results section. HC CBC,PLT & AUTO DIFF Routine 08/24/2021 10:03 Severe aortic AM EST stenosis COMPREHENSIVE Routine 08/24/2021 10:03 Severe aortic Results f or this METABOLIC PANEL AM EST stenosis procedure ar e in (NON-FASTING) the results section. documented in this encounter Results (ABNORMAL) Differential, Automated (08/24/2021 10:03 AM EST) [facility] gist Method Time Signature Neutrophils % 77.9 % [facility] Neutr Abs (ANC) 7.24 (H) 1.70 - [facility] 6.10 [facility] x10(3)/[facility] LABORATORY Lymphocytes % 13.0 % [facility] Lymphocytes Abs 1.2 0.9 - 3.2 [facility] x10(3)/[facility] LABORATORY Monocytes % 5.6 % [facility] Monocyte Abs 0.5 0.3 - 0.9 [facility] x10(3)/[facility] LABORATORY Eosinophils % 1.6 % [facility] Eosinophils Abs 0.2 0.0 - 0.4 [facility] x10(3)/[facility] LABORATORY Basophils % 0.9 % [facility] Basophils Abs 0.1 0.0 - 0.1 [facility] x10(3)/[facility] LABORATORY Immature Gran % 1.00 % [facility] Comment: Immature granulocytes(IG's)percentage an d absolute count will include metamyelocytes, myelocytes, and promyelo cytes. Blood smears from CBCs yielding IG's will be scanned manually for concor dance. If this scan disagrees with the automated IG or if promyelocytes are not ed, a manual differential will be performed. Lida Gran Abs 0.09 (H) 0.00 - 0.04 x10(3)/[facility] LABORATORY Specimen Anatomical Collection Method Collection Time Receive d Time (Source) Location / / Volume Laterality Blood 08/24/2021 10:03 08/24/2021 AM EST 10:19 AM EST Resulting Agency Comment Spec In Lab Issac Mcdowell MD HEMATOLOGY ORDERABLES Performing Organization Address City/State/[place] [address] (ABNORMAL) Hemogram (08/24/2021 10:03 AM EST) Analysis Performed At Patho logist Time Signature WBC 9.3 4.0 - 9.5 [facility] x10(3)/[facility] LABORATORY RBC 3.85 (L) 4.00 - [facility] 5.21 [facility] x10(6)/[facility] LABORATORY Hemoglobin 11.7 11.7 - [facility] 15.[facility] g/dL [facility] Hematocrit 35.9 35.7 - [facility] 45.8 % [facility] MCV 93.2 82.6 - [facility] 94.4 [facility] LABORATORY MCH 30.4 27.1 - [facility] 32.0 pg [facility] MCHC 32.6 31.7 - [facility] 35.0 g/dL [facility] Platelets 288 145 - 357 [facility] x10(3)/[facility] LABORATORY RDWSD 47.5 (H) 37.0 - [facility] 46.0 [facility] LABORATORY RDWCV 14.0 11.5 - [facility] 14.1 % [facility] MPV 10.5 7.6 - 12.9 [facility] LABORATORY nRBC % Auto 0.0 % [facility] nRBC Abs Auto 0.000 0.000 - [facility] 0.000 [facility] x10(3)/[facility] LABORATORY Specimen Anatomical Collection Method Collection Time Receive d Time (Source) Location / / Volume Laterality Blood 08/24/2021 10:03 08/24/2021 AM EST 10:19 AM EST Resulting Agency Comment Spec In Lab Issac Mcdowell MD HEMATOLOGY ORDERABLES Performing Organization Address City/State/[place] [address] (ABNORMAL) Comprehensive metabolic panel (non-fasting) (08/24/2021 10:03 AM EST) P athologist Signature Glucose Lvl 133 65 - 199 [facility] mg/dL [facility] Comment: Diabetes: >=200 mg/dL plus symp toms BUN 25 (H) 8 - 18 mg/dL [facility] Creatinine 1.17 0.70 - 1.20 mg/dL [facility] Sodium 138 135 - 145 mmol/L [facility] Potassium 4.3 3.5 - 5.0 mmol/L [facility] Comment: Please note: ??Patients with WBC >100,00 0 may have falsely elevated Potassium levels. ??For accurate Potassium quantif ication in these patients send serum separator tube (gold top) for subsequent determinations. ??Contact the Clinical Chemistry Laboratory if there are any qu estions. Chloride 100 98 - 107 mmol/L [facility] CO2 26 22 - 31 mmol/L [facility] Anion Gap 12 5 - 15 mmol/L [facility] Calcium 10.4 8.5 - 10.5 mg/dL [facility] Total Protein 7.6 6.1 - 8.0 g/dL [facility] Albumin 4.5 3.2 - 5.2 g/dL [facility] AST 13 0 - 30 unit/L [facility] ALT 18 0 - 30 unit/L [facility] Alk Phos 48 35 - 105 unit/L [facility] Total Bilirubin 0.6 0.2 - 1.3 mg/dL [facility] Estimated GFR 44 (L) >=60 mL/min/1.73 m?? [facility] Comment: This patient? s estimated glomerular filtration rate (eGFR) is between 44 mL/min/1.73 m2 (patients with less muscl e mass) and 51 mL/min/1.73 m2 (patients with more muscle mass) [...] (Source) Location / / Volume Laterality Blood 08/24/2021 10:03 08/24/2021 AM EST 10:19 AM EST Resulting Agency Comment Spec In Lab Issac Mcdowell MD CHEMISTRY ORDERABLES Performing Organization Address City/State/[place] [address] documented in this encounter Visit Diagnoses Diagnosis Severe aortic stenosis Aortic valve disorders Screening for cardiovascular condition Screening for other and unspecified card iovascular conditions Aortic valve stenosis, etiology of cardi ac valve disease unspecified Aortic valve disease Aortic valve disorders Dyspnea, unspecified type documented in this encounter Care Teams Pick Up Man Relationship Specialty Start Date End Date Zoey Lucas MD PCP - General 09/05/[address] [place] [address] documented as of this encounter
--- OUTSIDE RECORDS SUMMARY | 2022-07-27 00:17 | XMS_ITS | Encounter Summary ---
:1940 Author Organization [facility] [place] [address] Care Team Providers Name Role Phone Zoey Lucas MD Primary Care Provider Encounter Details Date Type Department Care Team Description 10/12/2021 Telephone Public Health at [facility] [place] [address] Social History Tobacco Use Types Packs/Day [...] this encounter Miscellaneous Notes Telephone Encounter - Adelaida Butler - 10/12/2021 3:26 PM EST 1. ..ASK: TRAVEL ???Have you travelled outside of [place] ([place], [place], [place], [place], [place]) in the past 14 days??? no 2. ASK: EXPOSURE Have you been in contact with anyone suspected or confirmed to have COVID-19 in the past 14 days??? no 3. ASK: SYMPTOMS Do you have any new or worsening symptoms on this list that are not related to another medical condition??? no ?? Fever or chills ?? Cough ?? Shortness of breath or difficulty breathing ?? Fatigue ?? Muscle or body aches ?? Headache ?? Loss of taste or smell ?? Sore throat ?? Congestion or runny nose ?? Nausea or vomiting ?? Diarrhea If 'Yes' to any of the questions above Transfer patient to the Covid-19 Hotline Number ([phone]) for further instructions. If 'No' to all of the questions above Is this the first test for Covid 19 Yes If no, please list date of previous test, result, and type of test (Molecular, Antigen, Antibody or unknown): JUL 2021 Neg Resides in Nursing/half-way or other residential setting No Employee or Household Member of Employee No Healthcare Worker No Telephone call placed/received to schedule Covid 19 testing with patient. Ordering provider: Dr. Issac Pena Testing Facility[facility] Date of Testin10/29/21 Time of Testin:30 Symptoms: Pre OP Give directions to testing facility. All passengers in the vehicle MUST wear a mask. Leave dogs/petsat home or have them crated/behind a net. Telephone Encounter - Angelic Templecarmen Del Angel - 10/12/2021 2:00 PM EST Spoke to pt and she'd like to have her pre-op covid test done closer to home, 01/16 for procedure pt will call with info documented in this encounter Plan of Treatment Not on filedocumented as of this encounter Visit Diagnoses Not on filedocumented in this encounter Care Teams Legal Administrative Assistant Relationship Specialty Start Date End Date Zoey Lucas MD PCP - General 09/05/[address] [place] [address] documented as of this encounter
--- OUTSIDE RECORDS SUMMARY | 2022-07-27 00:17 | XMS_ITS | Encounter Summary ---
:1940 [address] [place] [address] Care Team Providers Name Role Phone Zoey Lucas MD Primary Care Provider Encounter Details Date Type Department Care Team Description 10/31/2021 Anesthesia Event Dean Of Instruction Rosita Barnard MD [facility] Lizet carbajal [place] [address] [place] [address] [phone] (Wo rk) Anesthesia Record Procedure Summary Procedure Name Responsible Anesthesia Start Anesthesia Stop Anesthesiologist Time Time CARDIAC CATHETERIZATION (N/A ) Events No events on file. No medications on file. Agents No agents on file. Blood No blood administrations on file. Lines, Drains, and Airways No LDAs on file. documented in this encounter Social History Tobacco [...] as of this encounter OR Notes Anesthesia Preprocedure Evaluation - Amber Murray MD - 10/30/2021 12:42 PM EST Pre-Anesthesia Evaluation for: Zeny Joe a 81 y.o. female. Procedure(s): CARDIAC CATHETERIZATION COMBINED RIGHT & LEFT HEART CATH,INC INJ FOR L VENTRICULOGRAPHY @TRANSCATHETER AORTIC VALVE REPLACEMENT (TAVR), PERCUTANEOUS FEMORAL (WRVU 25.13) TRANSESOPHAGEAL ECHO DURING CATH/EP PROCEDURE Patient Active Problem List Diagnosis ??? Aortic stenosis, severe ??? Giant cell arteritis ??? Vision loss of left eye Past Medical History: Diagnosis Date ??? Allergic [...] 11.08) performed by Primo Rodríguez MD at [facility] OSC ??? PRO TEMPORAL ARTERY LIGATN OR BX Bilateral 10/25/2015 LIGATION OR BIOPSY, TEMPORAL ARTERY performed by Sukhdev Bhatti MD at [facility] MAIN OR ??? YAG CAPSULOTOMY Right 03/20/2019 SK Social History Tobacco Use ??? Smoking status: Former Smoker Quit date: 10/20/1983 Years since quittin.0 ??? Smokeless tobacco: Never Used Substance Use Topics ??? Alcohol use: Not Currently Comment: occasionaly wine in summer Social History Substance and Sexual Activity Drug Use No Allergies Allergen Reactions ??? Beta-Blockers (Beta-Adrenergic Blocking Agts) ??? Doxazosin Mesylate ??? Lisinopril ??? Nickel Medications: MAR and/or home medications have been reviewed. Physical Exam: Preprocedure Vitals Current as of 10/30/21 1242 No BP, pulse, respiration, SpO2, or temperature recorded. Height: Weight: BMI: IBW: Anesthesia Physical Exam Last Filed Perioperative Cognitive Screening None Anesthesia Plan: ASA 3 MAC, 81 y.o. female BMI 31 former smoker with Severe presenting for TAVR PMH significant for HTN (HCTZ, losartan, metoprolol), Giant cell arteritis (prednisone) ADR: -- Beta-Blockers (Beta-Adrenergic Blocking Agts) -- Doxazosin Mesylate -- Lisinopril -- Nickel Cardiac Hx: 2020 TTE - EF57, normal RV, LA. Calcified gradient 52, normal aorta Aug 2021 Cath - Conclusions: * Nonobstructive coronary artery disease * Mild pulmonary hypertension Anesthesia Hx: 2015 Temporal artery biopsy - MAC w/o issue Plan MAC vs GA Pre-induction arterial line Standard ASA monitors Amber Murray MD 10/30/2021 Fitness Plan Coordinator Pager #[phone] Informed Consent: Anesthesia Screening documented in this encounter Plan of Treatment Not on filedocumented as of this encounter Visit Diagnoses Not on filedocumented in this encounter Care Teams Trial Manager Relationship Specialty Start Date End Date Zoey Lucas MD PCP - General 09/05/[address] [place] [address] documented as of this encounter
--- OUTSIDE RECORDS SUMMARY | 2022-07-27 00:17 | XMS_ITS | Encounter Summary ---
:1940 Author Organization [facility] [place] [address] Care Team Providers Name Role Phone Zoey [...] Expiration Date Visits Requ ested Visits Authorized [id number] 1 1 Encounter Details Date Type Department Care Team Description 11/17/2021 Surgery Substance Abuse Clinician Issac Dunn, CARDIAC CATHETERIZATION [facility] [place] [address] CARDIOLOGY DEPT. [phone] [place], [place] [address] (Wo rk) Social History Tobacco [...] Sign Reading Time Taken Comments Blood Pressure 98/48 11/17/2021 10:05 AM EST Pulse 61 11/17/2021 10:05 AM EST Temperature 36.6 ??C (97.9 ??F) 11/17/2021 8:08 AM EST Respiratory Rate 23 11/17/2021 10:05 AM EST Oxygen Saturation 100% 11/17/2021 10:05 AM EST Inhaled Oxygen Concentration - - Weight 78 kg (172 lb) 11/17/2021 8:08 AM EST Height 160 cm (5' 3) 11/17/2021 8:08 AM EST Body Mass Index 30.77 11/17/2021 8:08 AM EST documented in this encounter Discharge Summaries Charlene Ernst PA - 11/19/2021 9:09 AM EST Images from the original note were not included. Inpatient - Discharge Summary Patient Name: Javier Joe Patient Age: 81 y.o. Birthdate: 1940 Language: Thai Race: White Ethnicity: Not nor Admit Date: 11/17/2021 Discharge Date: 11/19/2021 Attending Physician: Uli Richardson MD Follow-up Recommendations for Providers: ??? Please continue routine management of cardiovascular risk factors including blood pressure, lipids, glucose, etc. ??? Please note any medication changes. ??? Patient to follow up with PCP, Zoey Lucas MD, or Primary Microwave Oven Assembler in ~ 7-10 days. ??? Patient to follow up with Flare Breaker, Dr. Issac Pena with a chest x-ray, EKG, Echo, CBC, and CMP. ?? Yxxx-Lktbyq-wv interval: After initial 30 day follow-up appointment , all TAVR patients will follow-up again in one year with an echo. Inpatient Provider Contact Information: [facility] Section of Cardiac Surgery [facility] [address] FAX [phone] Discharge Diagnoses (Hospital Problems) Primary Diagnoses: Aortic [...] 11.08) performed by Primo Rodríguez MD at [facility] ??? PRO TEMPORAL ARTERY LIGATN OR BX Bilateral 10/25/2015 LIGATION OR BIOPSY, TEMPORAL ARTERY performed by Sukhdev Bhatti MD at [facility] MA[facility] OR ??? YAG CAPSULOTOMY Right [...] REMOVE Please contact the Blood Bank at [phone] for questions. ??? Beta-Blockers (Beta-Adrenergic Blocking Agts) ??? Doxazosin Mesylate ??? Lisinopril ??? Nickel History of Presentation: 81-year-old woman is seen in consultation for aortic valve therapies, referred by Dr. Yuki Sood. ?? Social history:??She lives in [facility], where she retired along with her 25 years ago.??Her 13 years ago, and she has a son in the area. 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 She was brought to the laborer ammunition assembly where Drs. Uli Richardson and Issac Pena [...] if you have questions. Please call your Flare Breaker's office if you have any discharge or drainage from your procedural sites. Your Flare Breaker, Dr. Issac Pena and/or the Biodiesel Operations Manager may be reached at . You may also contact MAGALYS Anderson RN, TAVR Superintendent Maintenance Airports at [phone] with any questions or issues. Antibiotic prophylaxis: [...] Please refer to the card with the [employer] Guidelines for more information. You have been provided with a copy of this card. Please refer to the [employer] Guidelines for more information. Good [...] friends, go to a movie, go to mu-ism, etc. Heavy activities: No hunting, skiing, jogging, [...] should resume a low fat, low cholesterol, [employer] Diet. Driving: No driving for 3 days. Shower/Bath: You may shower daily. No baths, soaking, or swimming for the first week. Wound care: Please remove your dressings 48 hours after your procedure. Wash the sites daily with soap and rinse well, pat dry. Assess for any signs of infection such as increased redness, pain, warmthor drainage. Please call your slope hoist operator's office if you have any discharge or drainage from your procedural sites. If there is a lot of swelling, apply beatris wraps during the day and remove at bedtime. Elevate your legs when you are sitting. Home oxygen therapy: N/A Follow up appointments: ??? Please schedule a follow-up appointment with your PCP, Zoey Lucas MD, or Primary Microwave Oven Assembler in ~ 7-10 days. ??? You have a follow-up appointment with your Flare Breaker, Dr. Issac Jean, with a chest x-ray, EKG, Echo, and labs prior to your appointment. ?? Uqbw-Coualc-kl interval: After initial 30 day follow-up appointment , all TAVR patients will follow-up again in one year with an echo. Discharge References/Attachments None Signed: Charlene Ernst PA-C [facility] Section of Cardiac Surgery Date: 11/19/2021 CC: MD Indigo Martinez, [place] [address] [address] documented in this encounter Discharge Instructions Patient InstructionsCharlene Ernst PA - 11/19/2021 9:04 AM EST Instructions Given to Patient at Discharge: TAVR Discharge Instructions: Call your doctor if: You have a fever of greater than 101 degrees, shaking chills, if you develop redness or drainage from your procedure sites, or if you have questions. Please call your Flare Breaker's office if you have any discharge or drainage from your procedural sites. Your Flare Breaker, Dr. Issac Pena and/or the Biodiesel Operations Manager may be reached at . You may also contact MAGALYS Anderson RN, TAVR Superintendent Maintenance Airports at [phone] with any questions or issues. Antibiotic prophylaxis: [...] Please refer to the card with the [employer] Guidelines for more information. You have been provided with a copy of this card. Please refer to the [employer] Guidelines for more information. Good [...] friends, go to a movie, go to mu-ism, etc. Heavy activities: No hunting, skiing, jogging, [...] should resume a low fat, low cholesterol, [employer] Diet. Driving: No driving for 3 days. Shower/Bath: You may shower daily. No baths, soaking, or swimming for the first week. Wound care: Please remove your dressings 48 hours after your procedure. Wash the sites daily with soap and rinse well, pat dry. Assess for any signs of infection such as increased redness, pain, warmthor drainage. Please call your slope hoist operator's office if you have any discharge or drainage from your procedural sites. If there is a lot of swelling, apply beatris wraps during the day and remove at bedtime. Elevate your legs when you are sitting. Home oxygen therapy: N/A Follow up appointments: Please schedule a follow-up appointment with your PCP, Zoey Lucas MD, or Primary Microwave Oven Assembler in ~ 7-10 days. You have a follow-up appointment with your Flare Breaker, Dr. Issac Pena, with a chest x-ray, EKG, Echo, and labs prior to your appointment. Vutg-Jrenlm-mn interval: After initial 30 day follow-up appointment [...] 5 mg Take 1 tablet by 0 03/2022 Tablet mouth daily. amoxicillin (Amoxil) 500 Take [...] removed. Pt discharged home with son. Alana Araiza, PT - 11/19/2021 10:05 AM EST Physical [...] 11.08) performed by Primo Rodríguez MD at [facility] ??? PRO TEMPORAL ARTERY LIGATN OR BX Bilateral 10/25/2015 LIGATION OR BIOPSY, TEMPORAL ARTERY performed by Sukhdev Bhatti MD at [facility] OR ??? YAG CAPSULOTOMY Right 03/20/2019 Active Non-Hospital Problems Diagnosis ??? Aortic stenosis, severe ??? Giant cell arteritis ??? Vision loss of left eye Social History: Lives alone in single level home in [place], [place] Home set-up: Single level with 2 [...] in this evaluation. Time IN / OUT: Total Minutes, Physical Therapy: 25 (1 PT EVAL LOW COMPLEXITY) Alana Araiza, PT Pager: [phone] Physical Therapy Inpatient Rehabilitation Department Corrine Soria [...] further recommendations for monitoring. LBBB resolved in touch up painter hours: Corrine Soria MD 11/19/2021 8:40 AM Nahum De Paz MD - 11/18/2021 11:03 AM EST Surgery [...] Rate from SpO2: [58 bpm-101 bpm] 11/17 07 - 11/18 07 In: 850 [P.O.:450; I.V.:400] Out: 750 [Urine:700] [...] 0600 and on the weekends please page [phone]. Christian Valverde RN - 11/18/2021 2:37 AM EST OUTCOME [...] purposeful rounding. CPG GOAL OUTCOME EVALUATION: Ongoing Emi Chacon RN - 11/17/2021 4:49 PM EST OUTCOME EVALUATION NOTE: OUTCOME SUMMARY: [facility] 15[facility]. Pt is A+Ox4, [...] referred by Dr. Yuki Sood. ?? Social history: She lives in [facility], where she retired along with her 25 years ago. Her 13 years ago, and she has a son in the area. 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 [...] Operative Note Patient Name: Javier Joe : [id number] MR#: [id number] Case Date: 11/17/2021 Surgeon: Surgeon(s) and Role: Panel 1: * Issac Pena MD - Primary * Anam Moseley PA - Physician Repairer Veneer Sheet Panel 2: * Uli Richardson MD - [...] with low-flow, low-gradient physiology, who presented to [facility] on 11/17/2021 for elective transcatheter aortic valve [...] Pertinent Medications: Current Facility-Administered Medications Ordered in [facility] Medication Dose Route Frequency Provider Last Rate [...] BID Arya Sinclair PA 5 mL at 11/18/21823 ??? senna-docusate (Pericolace) 8.6-50 mg per tablet [...] PRN Arya Sinclair PA 1,000 mg at 11/18/21544 No current [facility]-ordered outpatient medications on file. Family History: Family [...] file Occupational History ??? Occupation: retired from [employer] Tobacco Use ??? Smoking status: Former [...] 2027 Attending: Corrine Soria MD Service Pager: [phone] Staff addendum: I have seen and evaluated [...] Procedure Note: Patient Name: Javier Joe : [id number] MR#: [id number] Case Date: 11/17/2021 Technical Intern: Surgeon(s) and Role: Panel 1: * Issac Pena MD - Primary * Anam Moseley PA - Physician Repairer Veneer Sheet Panel 2: * Uli Richardson MD - Primary Panel 3: * Rigoberto Aggarwal MD - Primary Preoperative diagnosis: Severe aortic stenosis [I35.0] TAVR Postoperative diagnosis: * same* Procedure(s) performed: TAVR with 23mm ultra using conscious sedation Access: Right and left ENGINE REPAIRER--> Perclosed A time-out was conducted prior to [...] Richardson MD - 11/17/2021 8:33 AM EST [facility] SECTION OF CARDIAC SURGERY OPERATIVE REPORT 11/20/21 ? PATIENT NAME:??Javier Joe?1940?? MR#:??[id number] ? REFERRING PHYSICIAN:?? Yuki Sood MD [address] [place] [address] DR VERNON LUJAN [address] [place] [id number] ?? PRE-OPERATIVE DIAGNOSIS: Severe aortic stenosis ? POST-OPERATIVE DIAGNOSIS: Same ? PROCEDURE: ?? 1. Implantation of catheter-delivered prosthetic aortic heart valve; percutaneous femoral artery approach (23??mm Smart SAPIEN3 transcatheter heart valve) ? SURGEON: Uli Richardson MD ? ARMATURE BANDER: ?? Issac Pena M.D. ? ANESTHESIA:? Conscious sedation ? CLINICAL HISTORY:? This is a??81-year-old??woman with aortic stenosis. The patient was evaluated for TAVR and found to be an appropriate candidate and is now taken to the laborer ammunition assembly for transcatheter aortic valve replacement using the [...] performed. The??right??femoral??artery was accessed percutaneously and a 6-Nepalese sheath placed.??Additionally, the??left??common femoral??artery and??left??femoral??vein were accessed percutaneously and 6-Nepalese sheaths placed. ? The patient was systemically heparinized with 100 units per kg of IV heparin to goal ACT greater than 250. A 6-Nepalese pigtail catheter is then passed up from the??left femoral??arterial sheath and positioned in the right coronary sinus. A transvenous pacing lead is then advanced from the left??femoralvein up to the right ventricle. The #6-Nepalese right femoral sheath is then upsized for a 14- Nepalese Smart E-sheath over a Gregory wire. A root angiogram was shot, and the optimal view for visualization of the aortic root was obtained. ? The aortic valve was then crossed using a straight-tip wire and an AL- 2??catheter. The straight wireis exchanged for a long flexible J-tip wire and the AL-2??exchanged for a 6-Nepalese angled pigtail catheter. A stiff wire was positioned in the apex of the LV under VILLAREAL imaging. Care is taken to avoid co ntact with the ventricular wall with the transition point of the wire to avoid perforation. The C-arm is then changed back to the ideal imaging plane in ANGOLAN. ? A 23-mm Smart SAPIEN3 device is [...] catheters are removed over a wire. The #14-Nepalese introducer sheath is removed, and the??right??common femoral arteriotomy closed percutaneously two??ProGlide closure devices. After holding direct pressure for 20 minutes there was no evidence of bleeding from the closure site. ? Protamine is administered. Hemostasis is obtained. ? All sponge, needle, and instrument counts are reported correct at the end of the case. The patient is taken to laborer ammunition assembly recovery in stable condition at the end [...] ? [facility] ?[address] ? [place] [address] ?Voice: ?Fax: ? Echocardiogram Report Name: JAVIER JOE Saritha ? Study Date: 01/19/2022 02:28 PM ? Patient Location: 4A : 1940 ? Height: 160 cm ? Account: [id number] Age: 81 yrs ? Weight: 79 kg Gender: Female ?BSA: 1.8 m2 Ordering Physician: ULI RICHARDSON Referring Physician: CHARLENE ERNST Performed By: Viktoria Mazariegos RDCS Reason For Study: S/P TAVR Exam Location: [facility]. Interpretation Summary Normal LV size and function. EF 68%. Inc reased LV wall thickness and mass. Normal RV size and function. Normal PASP . 23 mm Gulshan in AoV position implanted F eb 2021. Mild paravalve leak. Mean gradient 10 mm Hg. Procedure Complete-25654. Satisfactory quality. Th ere is normal sinus [...] cm ?SI(LVOT): 46.7 ml/m2 Doppler TR max sophia: 245.2 cm/sec Ao V2 VTI: 45.0 cm Ao valve max: 18.2 mmHg Ao valve mean: 10.1 mmHg MV E max sohpia: 81.6 cm/sec MV A max sophia: 134.1 [...] Procedure Note Janes Larson MD - 01/19/2022Formatti ng of this note might be [place] [address] Voice: Fax: Echocardiogram Report Name: JAVIER JOE Study Date: 2021 02:28 PM Patient Location: : 1940 Height: 160 cm Account: [id number] Age: 81 yrs Weight: 79 kg Gender: Female BSA: 1.8 m2 Ordering Physician: ULI RICHARDSON Referring Physician: CHARLENE ERNST Performed By: Viktoria Mazariegos RDCS Reason For Study: S/P TAVR Exam Location: [facility]. Interpretation Summary Normal LV size and function. EF 68%. Inc reased LV wall thickness and mass. Normal RV size and function. Normal PASP . 23 mm Gulshan in AoV position implanted F eb 2021. Mild paravalve leak. Mean gradient 10 mm Hg. Procedure Complete-19228. Satisfactory quality. Th ere is normal sinus [...] Signature Glucose Lvl 135 65 - 199 [facility] mg/dL [facility] Comment: Diabetes: >=200 mg/dL plus symp toms BUN 34 (H) 8 - 18 mg/dL [facility] Creatinine 1.51 (H) 0.70 - 1.20 mg/dL [facility] Sodium 139 135 - 145 mmol/L [facility] Potassium 4.1 3.5 - 5.0 mmol/L [facility] Comment: Please note: ??Patients with WBC >100,00 0 may have falsely elevated Potassium levels. ??For accurate Potassium quantif ication in these patients send serum separator tube (gold top) for subsequent determinations. ??Contact the Clinical Chemistry Laboratory if there are any qu estions. Chloride 99 98 - 107 mmol/L [facility] CO2 28 22 - 31 mmol/L [facility] Anion Gap 12 5 - 15 mmol/L [facility] Calcium 10.4 8.5 - 10.5 mg/dL [facility] Total Protein 7.4 6.1 - 8.0 g/dL [facility] Albumin 4.7 3.2 - 5.2 g/dL [facility] AST 16 0 - 30 unit/L [facility] ALT 22 0 - 30 unit/L [facility] Alk Phos 44 35 - 105 unit/L [facility] Total Bilirubin 1.0 0.2 - 1.3 mg/dL [facility] Estimated GFR 32 (L) >=60 mL/min/1.73 m?? [facility] Comment: This patient? s [...] Richardson MD CHEMISTRY ORDERABLES Performing Organization Address City/[facility] [place] [address] EKG 12 Lead (11/19/2021 7:53 AM EST) Component Value Ref Range Test Analysis Performed Pathologis t Method Time At Signature Ventricular rate 77 BPM MUSE SYSTEM Atrial Rate 77 BPM MUSE SYSTEM P-R Interval 194 ms MUSE SYSTEM QRS Duration 82 ms MUSE SYSTEM Q-T Interval 396 ms MUSE SYSTEM QTC Calculated 448 ms MUSE SYSTEM (Bezet) Calculated P [place] 70 degrees MUSE SYSTEM Calculated R [place] 5 degrees MUSE SYSTEM Calculated T [place] 90 degrees MUSE SYSTEM INTERPRETATION Normal sinus [...] Paz MD ECG ORDERABLES Performing Organization Address City/[facility]/ZIP [facility] Phon e Number MUSE SYSTEM Potassium (11/19/2021 7:26 AM EST) P athologist Signature Potassium 3.6 3.5 - 5.0 [facility] mmol/L [facility] Comment: Please note: ??Patients with WBC >100,00 0 may have falsely elevated Potassium levels. ??For accurate Potassium quantif ication in these patients send serum separator tube (gold top) for subsequent determinations. ??Contact the Clinical Chemistry Laboratory if there are any qu estions. Specimen Anatomical Collection Method Collection Time Receive d Time (Source) Location / / Volume Laterality Blood 11/19/2021 7:26 AM 7:36 EST AM EST Resulting Agency Comment Spec In Lab Nahum De Paz MD CHEMISTRY ORDERABLES Performing Organization Address City/State/[place] [address] EKG 12 Lead (11/18/2021 7:55 AM EST) Component Value Ref Range Test Analysis Performed Pathologis t Method Time At Signature Ventricular rate 82 BPM MUSE SYSTEM Atrial Rate 82 BPM MUSE SYSTEM P-R Interval 182 ms MUSE SYSTEM QRS Duration 132 ms MUSE SYSTEM Q-T Interval 428 ms MUSE SYSTEM QTC Calculated 500 ms MUSE SYSTEM (Bezet) Calculated P [place] 63 degrees MUSE SYSTEM Calculated R [place] -10 degrees MUSE SYSTEM Calculated T [place] 132 degrees MUSE SYSTEM INTERPRETATION Normal sinus rhythm MUSE SYSTEM Left bundle branch block When compared with ECG of 18-NOV-2021 06:17, No significant change was found Confirmed by MD Cortney, Bart Flores ([id number]) on 11/18/2021 10:43:2 1 AM Specimen Anatomical Collection Method Collection Time Receive d Time (Source) Location / / Volume Laterality 11/18/2021 7:55 AM EST 10:43 AM EST Nahum De Paz MD ECG ORDERABLES Performing Organization Address City/State/ZIP Code Phon e Number MUSE SYSTEM CARDIAC CATHETERIZATION (11/18/2021 7:19 AM EST) Anatomical Region Laterality Modality Other Specimen (Source) Anatomical Location Collection Method / Collectio n Time Received Time / Laterality Volume Narrative 11/18/2021 7:19 AM EST ?[facility] ? Cardiac Cathete rization/Intervention Report ? Patient Name: Tatyana, Javier L. ? Procedure Date: 11/17/2021 ? A #: [id number] ? Primary Physician: Issac Pena ? Case #: [id number] ? File Name: [id number] ? Catheterization Order Number: [id number] ? [facility] ? Final Report [place], [place] ? Patient Name: ? Javier L. Kal e ?ID#: ?[id number] ? : ?1940 ? Procedure Date: ? February 4, 202 2 ? Case #: ? [id number] ? Room: ? 6 ? Case Physicians: ?Issac Pena M.D. ?Start: ?08:58 ?Taisha Richardson M.D. ? Admission: ??11/17/2021 ?Anam Moseley, P.A. ?Dr Brittany dalal M.D. ? Referring Physician: ??Yuki Sood M.D. ? Procedures: ?* Left Heart Catheterization ?* Aortic Root Aortogram ?* Transcatheter Aortic Valve Re placement ?* Vascular Closure Device Deplo yment ?* Temporary Pacemaker Insertion In Substance Abuse Clinician ?* Arterial Line / Sheath Insert ?* [...] designated as ASA Class III . The [facility] clinical frailty scale is 6: ?Moderately [...] Smart Gulshan 3 Ultra 23 mm THV (s/x=[id number]) transcatheter valve was ?inserted using standard [employer] ue. Protamine was administered at the ?conclusion [...] to nor was it given in the ?laborer ammunition assembly. ?Recommended anti-platelet/anti- thrombotic regimen: ?Continue aspirin 81 mg daily fo r indefinitely. ?These recommendations are made at the time of the intervention. Patient ?and provider preferences or a c hanging clinical situation may require ?modification of this regimen. C [facility] Interventional Cardiology for ?questions. ? Conclusions: ?* [...] the access site angiography, temporary ?pacemaker in laborer ammunition assembly, vascular cl osure device, ABG, TAVR, venous line / ?sheath insert, aortic root aortogr am and left heart catheterization. DrKj ?Uli Richardson M.D. performed the temporary pacemaker in laborer ammunition assembly, ?vascular closure device, ABG and T AVR. Manuel Mccoy performed ?the access site angiography, tempo rary pacemaker in laborer ammunition assembly, vascular ?closure device, ABG, TAVR, left he [...] note might be different from the original. [facility] Cardiac Catheterization/Intervention Re port Patient Name: Javier Joe Procedure Date: 11/17/2021 A #: [id number] Primary Physician: Issac Pena Case #: [id number] File Name: [id number] Catheterization Order Number: [id number] [facility] Final Report [place], [place] Patient Name: Javier Joe ID#: [id number] : 1940 Procedure Date: November 17, 2021 Case #: [id number] Room: 6 Case Physicians: Carri Madsen tart: 08:58 Uli Richardson M.D. Admission: 01/[address], M.D. Referring Physician: Yuki Sood M.D. Procedures: * Left Heart Catheterization * Aortic Root Aortogram * Transcatheter Aortic Valve Replacemen t * Vascular Closure Device Deployment * Temporary Pacemaker Insertion In Substance Abuse Clinician * Arterial Line / Sheath Insert * [...] as ASA Class III. The [facility] clinical frailty scale is 6: Moderately Frail. [...] pain symptom assessment was: Asymptomatic. One of e indications for cath is valvular heart [...] baseline. The procedure was performed in the [facility] id cath suite. The aortic valve annular size was 426 sq.mm. as assessed by CTA. At baseline the mean trans-valvular gradient was 27.0 mmHg a nd the aortic valve area was 0.9 sq.cm. The calculated STS risk score wa s 3.1%. The procedure was performed under Moder ate sedation. Uli Richardson M.D. participated in the case (see [facility] Surgery report for additional details). The TAVR sheath was a 14 Fr Smart [employer] eath Introducer and the access site was femoral. Rapid ventricular pac ing was performed. An Smart Gulshan 3 Ultra 23 mm THV (s/ z=[id number]) transcatheter valve was inserted using standard technique. [...] to nor was it given in the laborer ammunition assembly. Recommended anti-platelet/anti-thrombot ic regimen: Continue aspirin 81 mg daily for indefi nitely. These recommendations are made at the t dany of the intervention. Patient and provider preferences or a changing clinical situation may require modification of this regimen. Consult [facility] Interventional Cardiology for questions. Conclusions: * Severe [...] the access site angiography, temporary pacemaker in laborer ammunition assembly, vascular closure device, ABG, TAVR, venous line / sheath insert, aortic root aortogram an d left heart catheterization. Dr. Uli Richardson M.D. performed the temporary pacemaker in laborer ammunition assembly, vascular closure device, ABG and TAVR. Manuel Mccoy performed the access site angiography, temporary pacemaker in laborer ammunition assembly, vascular closure device, ABG, TAVR, left heart [...] 510 ms MUSE SYSTEM (Bezet) Calculated P [place] 62 degrees MUSE SYSTEM Calculated R [place] -14 degrees MUSE SYSTEM Calculated T [place] 123 degrees MUSE SYSTEM INTERPRETATION Normal sinus [...] Method Time Signature Neutrophils % 78.8 % [facility] Neutr Abs (ANC) 7.31 (H) 1.70 - [facility] 6.10 [facility] x10(3)/[facility] L LABORATORY Lymphocytes % 7.6 % [facility] Lymphocytes Abs 0.7 (L) 0.9 - 3.2 [facility] x10(3)/[facility] LABORATORY Monocytes % 11.2 % [facility] Monocyte Abs 1.0 (H) 0.3 - 0.9 [facility] x10(3)/[facility] LABORATORY Eosinophils % 1.8 % [facility] Eosinophils Abs 0.2 0.0 - 0.4 [facility] x10(3)/[facility] LABORATORY Basophils % 0.3 % [facility] Basophils Abs 0.0 0.0 - 0.1 [facility] x10(3)/[facility] LABORATORY Immature Gran % 0.30 % [facility] Comment: Immature granulocytes(IG's)percentage an d absolute count will include metamyelocytes, myelocytes, and promyelo cytes. Blood smears from CBCs yielding IG's will be scanned manually for concor dance. If this scan disagrees with the automated IG or if promyelocytes are not ed, a manual differential will be performed. Lida Gran Abs 0.03 0.00 - 0.04 x10(3)/[facility] LABORATORY Specimen Anatomical Collection Method Collection Time Receive d Time (Source) Location / / Volume Laterality Blood 11/18/2021 4:14 AM 4:39 EST AM EST Resulting Agency Comment Spec In Lab Arya PAULINO HEMATOLOGY ORDERABLES Performing Organization Address City/State/[place] [address] (ABNORMAL) Hemogram (11/18/2021 4:14 AM EST) Analysis Performed At Patho logist Time Signature WBC 9.3 4.0 - 9.5 [facility] x10(3)/[facility] LABORATORY RBC 3.58 (L) 4.00 - [facility] 5.21 [facility] x10(6)/[facility] LABORATORY Hemoglobin 11.1 (L) 11.7 [facility] 15.5 g/dL [facility] Hematocrit 34.1 (L) 35.7 - [facility] 45.8 % [facility] MCV 95.3 (H) 82.6 - [facility] 94.4 [facility] LABORATORY MCH 31.0 27.1 - YUKI FAUSTINA 32.[address] [facility] MCHC 32.6 31.7 - [facility] 35.0 g/dL [facility] Platelets 162 145 - 357 [facility] x10(3)/[facility] LABORATORY RDWSD 46.4 (H) 37.0 - [facility] 46.0 [facility] LABORATORY RDWCV 13.2 11.5 - [facility] 14.1 % [facility] MPV 10.9 7.6 - 12.9 [facility] LABORATORY nRBC % Auto 0.0 % [facility] nRBC Abs Auto 0.000 0.000 - [facility] 0.000 [facility] x10(3)/[facility] LABORATORY Specimen Anatomical Collection Method Collection Time Receive d Time (Source) Location / / Volume Laterality Blood 11/18/2021 4:14 AM 4:39 EST AM EST Resulting Agency Comment Spec In Lab Arya PAULINO HEMATOLOGY ORDERABLES Performing Organization Address City/State/[place] [address] (ABNORMAL) Basic Metabolic Panel (non-fasting) (11/18/2021 4:14 AM EST) P athologist Signature Glucose Lvl 107 65 - 199 [facility] mg/dL [facility] Comment: Diabetes: >=200 mg/dL plus symp toms BUN 23 (H) 8 - 18 mg/dL [facility] Creatinine 1.32 (H) 0.70 - 1.20 mg/dL [facility] LAB[facility] Sodium 141 135 - 145 mmol/L [facility] LABORATORY Potassium 3.4 (L) 3.5 - 5.0 mmol/L [facility] LABOR[facility]ORY Comment: Please note: ??Patients with WBC >100,00 0 may have falsely elevated Potassium levels. ??For accurate Potassium quantif ication in these patients send serum separator tube (gold top) for subsequent determinations. ??Contact the Clinical Chemistry Laboratory if there are any qu estions. Chloride 105 98 - 107 mmol/L [facility] CO2 25 22 - 31 mmol/L [facility] Anion Gap 11 5 - 15 mmol/L [facility] Calcium 8.4 (L) 8.5 - 10.5 mg/dL [facility] LABORATORY Estimated GFR 38 (L) >=60 mL/min/1.73 m?? [facility] Comment: This patient? s [...] Pena MD CHEMISTRY ORDERABLES Performing Organization Address City/[facility]/[place] [address] Hemoglobin (11/17/2021 3:56 PM EST) P athologist Signature Hemoglobin 12.7 11.7 - 15.5 [facility] g[facility] Specimen Anatomical Collection Method Collection Time Receive d Time (Source) Location / / Volume Laterality Blood 11/17/2021 3:56 PM 2 4:23 EST PM EST Resulting Agency Comment Spec In Lab Issac Pena MD HEMATOLOGY ORDERABLES Performing Organization Address City/[facility] [place] [address] Potassium (11/17/2021 3:56 PM EST) P athologist Signature Potassium 3.9 3.5 - 5.0 [facility] mmol/L [facility] Comment: Please note: ??Patients with WBC >100,00 0 may have falsely elevated Potassium levels. ??For accurate Potassium quantif ication in these patients send serum separator tube (gold top) for subsequent determinations. ??Contact the Clinical Chemistry Laboratory if there are any qu estions. Specimen Anatomical Collection Method Collection Time Receive d Time (Source) Location / / Volume Laterality Blood 11/17/2021 3:56 PM 4:23 EST PM EST Resulting Agency Comment Spec In Lab Issac Pena MD CHEMISTRY ORDERABLES Performing Organization Address [facility]/ZIP Code Phon e Number [place] [phone] [facility] LAB[address]ATORY Drive EKG 12 Lead (11/17/2021 10:03 AM EST) Component Value Ref Range Test Analysis Performed Pathologis t Method Time At Signature Ventricular rate 59 BPM MUSE SYSTEM Atrial Rate 59 BPM MUSE SYSTEM P-R Interval 210 ms MUSE SYSTEM QRS Duration 134 ms MUSE SYSTEM Q-T Interval 518 ms MUSE SYSTEM QTC Calculated 512 ms MUSE SYSTEM (Bezet) Calculated P [place] 57 degrees MUSE SYSTEM Calculated R [place] -17 degrees MUSE SYSTEM Calculated T [place] 133 degrees MUSE SYSTEM INTERPRETATION Sinus bradycardia with 1st degree A-V block MUSE SYSTEM Left bundle branch block Abnormal ECG When compared with ECG of 24-AUG-2021 13:11, SD interval has increased Left bundle branch block is now Present Confirmed by MD Danial, Milo Kelly ([id number]) on 11/17/2021 12:55:4 2 PM Specimen Anatomical Collection Method Collection Time Receive d Time (Source) Location / / Volume Laterality 11/17/2021 10:03 11/17/2021 AM EST 12:55 PM EST Issac Pena MD ECG ORDERABLES Performing Organization Address City/[facility]/ZIP Code Phon e Number MUSE SYSTEM (ABNORMAL) Point of Care Blood Gas Historical (11/17/2021 8:56 AM EST) Patholo gist Method Time Signature POC pH 7.41 7.35 - [facility] 7.45 [facility] POC PCO2 43 35 - 45 [facility] LABORATORY POC PO2 226 (H) 85 - 104 [facility] LABORATORY POC Base Excess 2.0 -3.0 - 3.[address] [facility] K mmol/L [facility] POC HCO3 27.2 (H) 20.0 - [facility] 26.0 [facility] mmol/[facility] LABORATORY POC Sodium 141 135 - 145 [facility] mmol/L [facility] POC Potassium 3.5 3.5 - 5.0 [facility] mmol/L [facility] POC Hematocrit 33.0 (L) 34.0 - [facility] 45.0 % [facility] POC Calc Hgb 11.2 11.2 - [facility] 15.7 g/dL [facility] Comment: The calculation of hemoglobin f rom hematocrit assumes a normal MCHC. POC Bgas Loc CC LAB [facility] LABORATORY Specimen Anatomical Collection Method Collection Time Receive d Time (Source) Location / / Volume Laterality Blood 11/17/2021 8:56 AM 9:00 EST AM EST Uli Richardson MD CHEMISTRY ORDERABLES Performing Organization Address City/State/ZIP Code Phon e Number [address] Type and Screen Validity (11/17/2021 8:00 AM EST) [facility] Method Time Signature T&S only valid [facility] LABORATORY Comment: This Type and Screen result is only valid at the [facility] Specimen Anatomical Collection Method Collection Time Receive d Time (Source) Location / / Volume Laterality Blood Venous Draw / 11/17/2021 8:00 AM 11/17/19 8:16 Unknown EST AM EST Resulting Agency Comment Spec In Lab Anam PAULINO BLOOD BANK ORDERABLES Performing Organization Address City/State/ZIP Code Phon e Number [address] ABORH Recheck Status (11/17/2021 8:00 AM EST) [facility] Method Time Signature ABORH Type Completed [facility] LABORATORY Specimen Anatomical Collection Method Collection Time Receive d Time (Source) Location / / Volume Laterality Blood Venous Draw / 11/17/2021 8:00 AM 11/17/19 22 8:16 Unknown EST AM EST Resulting Agency Comment Spec In Lab Anam Moseley [facility] ORDERABLES Performing Organization Address City/[facility]/[place] [address] Selected Cell Screen (11/17/2021 8:00 AM EST) Component Value Ref Test Analysis Performed At [facility] Range Method Time Signature Ab Screen Previously identified Anti-E. No additio nal alloantibodies detected.* YUKI WEEMS *Due to the presence of alloantibody(ies) additional [...] [facility] ORDERABLES Performing Organization Address City/[facility]/ZIP Code Phon e Number [address] ABORh Type Manual (11/17/2021 8:00 AM EST) [facility] Method Time Signature Expires at 11/20/2021 YUKI WEEMS [id number] on: [facility] ABORh Type O Pos [facility] LAB[facility] Specimen Anatomical Collection Method Collection Time Receive d Time (Source) Location / / Volume Laterality Blood Venous Draw / 11/17/2021 8:00 AM 11/17/19 22 8:16 Unknown EST AM EST Resulting Agency Comment Spec In Lab Anam Moseley [facility] ORDERABLES Performing Organization Address City/[facility]/ZIP Code Phon e Number [address] SCAN DOC: IMPLANTABLE DEVICES (11/17/2021 [...] 6 HOURS PRN, Starting on Sat11/17/21 at 1535, Until 11/19/21 at 1338, Pain, For pain when taking by mouth. Maximum dose of acetaminophen is 4000 mg from all sources in 24 hours. When ordered for pain, acetaminophen should be given even when other ordered pain medications are indicated., Routine Given 11/17/2021 9:07 PM EST 1,000 mg amLODIPine (Norvasc) tablet 5 mg Given 11/19/2021 [...] Given 11/18/2021 8:19 AM EST 10 mg losartan (Cozaar) tablet 25 mg Given 11/19/2021 9:54 AM EST 25 mg 25 mg, Oral, DAILY, First dose on 11/19/21 at 0945, Until Discontinued, Routine ondansetron (pf) (Zofran) (2 mg/mL) inje ction 4 mg 4 mg, Intravenous, EVERY 8 HOURS PRN, Starting on 11/18/21 at 0247, Until 11/19/21 at 1338, Nausea predniSONE (Deltasone) tablet 2 mg Given 11/19/2021 [...] Discontinued, Routine predniSONE (Deltasone) tablet 5 mg 821 (Given - Provider: Jaclyn Kumar RN) 0953 [...] 2106 (Given - Provider: Christian Fisher RN) 08 (Given - Provider: Jaclyn Kumar RN)2100 (Given - Provider: Christian Fisher RN) 0955 (Given - Provider: Jaclyn Kumar RN) 5 mL, Intravenous, 2 TIMES DAILY, First dose on Sat11/17/21 at 2100, Until Discontinued, Routine PRN Medication Order 11/17/2021 11/18/2021 11/19/2021 acetaminophen (Tylenol) tablet 1,000 mg 2107 (Given - Provider: Christian Fisher, DAVE) 0545 (Given - Provider: Christian Fisher, DAVE) [...] Nausea documented in this encounter Care Teams Business Risk Analyst Relationship Specialty Start Date End Date Zoey Lucas MD PCP - General 09/05/[address] [place] [address] [address] [facility] [address] [place], [place] [id number] documented as of this encounter
--- OUTSIDE RECORDS SUMMARY | 2022-07-27 00:17 | XMS_ITS | Encounter Summary ---
:1940 Author Organization [facility] [place] [address] Care Team Providers Name Role Phone Zoey Lucas MD Primary Care Provider Reason for Referral Diagnostic Test (Routine) - Closed Specialty Diagnoses / Procedures Referred By Contact Refer red To Contact Radiology Diagnoses Severe aortic stenosis Issac Mcdowell MD [facility] Rad Ct Scan Procedures CT Angiogram Abdomen & Pelvis w Contrast (Generic) [facility] [address] [place] [address] [place] [address] Referral ID Status Reason Start Date Expiration Date Visits V isits Requested Authorized [id number] Closed Specialty 07/25/2021 01/23/2023 1 1 Service Requested iagnostic Test (Routine) - Closed Specialty Diagnoses / Procedures Referred By Contact Refer red To Contact Radiology Diagnoses Severe aortic stenosis Issac Mcdowell MD [facility] Rad Ct Scan Procedures CT Cardiac for Morphology & Function [facility] [place] [address] [place] [address] Referral ID Status Reason Start Date Expiration Date Visits V isits Requested Authorized [id number] Closed Specialty 07/25/2021 01/23/2023 1 1 Service Requested Reason for Visit Diagnostic Test (Routine) - Closed Specialty Diagnoses / Procedures Referred By Contact Refer red To Contact Radiology Diagnoses Severe aortic stenosis Issac Mcdowell MD [facility] Rad Ct Scan Procedures CT Cardiac for Morphology & Function [facility] [place] [address] [place] [address] Referral ID Status Reason Start Date Expiration Date Visits V isits Requested Authorized [id number] Closed Specialty 07/25/2021 01/23/2023 1 1 Service Requested Encounter Details Date Type Department Care Team Description 08/24/[address] Scan at [facility] Issac Mcdowell Severe aortic [facility] MD Dmitri stenosis [facility] [address] CARDIOLOGY DEPT. [phone] [place] [address] Social History Tobacco Use Types Packs/Day Years [...] Name Priority Date/Time Associated Diagnosis Comme nts CT HEART FOR Routine 08/24/2021 11:25 AM Severe aortic Results for this FUNCTION EST stenosis procedure are i n (NON-CORONARY) W the results CONTRAST section. CT ANGIOGRAM Routine 08/24/2021 11:25 AM Severe aortic Results for this ABDOMEN AND PELVIS EST stenosis procedure are in W CONTRAST the results section. documented in this encounter Results CT Angiogram Abdomen & Pelvis w Contrast (Generic) (08/24/2021 11:25 AM EST) Anatomical Region Laterality Modality Abdomen, Pelvis Computed Tomography Specimen (Source) Anatomical Collection Method Collection Time Re ceived Time Location / / Volume Laterality 08/24/2021 11:44 AM EST Impressions 08/24/2021 2:25 PM EST Minimal aortoiliac luminal diameters as described above. 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 Thank you for letting us participate in the care of this patient. ??If you are a health care provider and have any questi ons regarding this report, please contact the number below. ??For patients who have questions please contact the health wild animal caretaker that requested your imaging first. ? Electronically signed by: Dc bahena MD, [facility] ([phone]), at 08/24/2021 2:25 PM Narrative 08/24/2021 2:25 PM EST EXAMINATION: CT ANGIOGRAM ABDOMEN AND PELVIS W CONTRAST (GENERIC) CLINICAL HISTORY: TAVR screening, iliac and bifurcation sizing and calcification, aortic stenosis TECHNIQUE: Helical CTA of the abdomen an d pelvis was performed after intravenous administration of contrast. Administered 101.2 ml of VISIPAQUE 320.00 mg/ml. Coronal and sagittal reconstructions wer e generated. Three-dimensional volume reconstructions were created on an Flowgram computer workstation. COMPARISON: None FINDINGS: VASCULAR Abdominal aorta: No stenosis or aneurysm (Minimal luminal diameters) Suprarenal aorta: 21.0 x 22.9 mm Juxtarenal aorta: 14.3 x 15.9 mm Infrarenal aorta: 12.5 x 13.5 mm Degree of calcification at aortic bifurc ation: Mild Branch vessels: Celiac artery: Widely patent. SMA: Widely patent. Right renal artery: The RIGHT renal rudi ry exhibits a beaded appearance over a 2.5 cm segment consistent with fibromusc ular dysplasia Left renal artery: Absent NICK: Widely patent. Iliac/Femoral Arteries: No aneurysm or s tenosis. (Minimal luminal diameters) Right common iliac: 8.3 x 9.6 mm Right external iliac: 6.1 x 7.3 mm Right common femoral: 7.1 x 8.2 mm Left common iliac: 8.2 x 9.9 mm Left external iliac: 7.0 x 8.4 mm Left common femoral: 7.3 x 9.5 mm Tortuosity on the right: 10 degrees/cm Tortuosity on the left: 25 degrees/cm NON-VASCULAR FINDINGS Liver: Liver is normal in size with smoo th capsular contour. There is a 1 cm cyst within the central RIGHT lobe. Bile ducts: Nondilated. Gallbladder: Post cholecystectomy. Pancreas: Normal. Spleen: Normal. Adrenals: Normal. Kidneys: The RIGHT kidney is normal in s ize. There is an extra renal pelvis. No complex cystic or solid enhancing renal lesions are present. The LEFT kidney has been removed. Urinary Bladder: Normal. Lymph Nodes: No enlarged lymph nodes. Bowel: Scattered colonic diverticula wit hout diverticulitis. The terminal ileum and appendix are normal. No dilated smal l or large bowel present. No abnormal bowel wall thickening present. Peritoneum and mesentery: No ascites, fr ee air, or loculated fluid collection. No mesenteric inflammation. Osseous structures: There is mild levoco nvex curvature of the lumbar spine centered on the L3 vertebral body with a ssociated degenerative changes of the nearby levels where there are endplate r eactive changes and disc height loss. No suspicious osseous lesions. Procedure Note Dc Robles MD - 08/24/2021Form atting of this note might be different from the original. EXAMINATION: CT ANGIOGRAM ABDOMEN AND PE LVIS W CONTRAST (GENERIC) CLINICAL HISTORY: TAVR screening, iliac and bifurcation sizing and calcification, aortic stenosis TECHNIQUE: Helical CTA of the abdomen an d pelvis was performed after intravenous administration of contrast. Administered 101.2 ml of VISIPAQUE 320.00 mg/ml. Coronal and sagittal reconstructions wer e generated. Three-dimensional volume reconstructions were created on an Flowgram computer workstation. COMPARISON: None FINDINGS: VASCULAR Abdominal aorta: No stenosis or aneurysm (Minimal luminal diameters) Suprarenal aorta: 21.0 x 22.9 mm Juxtarenal aorta: 14.3 x 15.9 mm Infrarenal aorta: 12.5 x 13.5 mm Degree of calcification at aortic bifurc ation: Mild Branch vessels: Celiac artery: Widely patent. SMA: Widely patent. Right renal artery: The RIGHT renal rudi ry exhibits a beaded appearance over a 2.5 cm segment consistent with fibromusc ular dysplasia Left renal artery: Absent NICK: Widely patent. Iliac/Femoral Arteries: No aneurysm or s tenosis. (Minimal luminal diameters) Right common iliac: 8.3 x 9.6 mm Right external iliac: 6.1 x 7.3 mm Right common femoral: 7.1 x 8.2 mm Left common iliac: 8.2 x 9.9 mm Left external iliac: 7.0 x 8.4 mm Left common femoral: 7.3 x 9.5 mm Tortuosity on the right: 10 degrees/cm Tortuosity on the left: 25 degrees/cm NON-VASCULAR FINDINGS Liver: Liver is normal in size with smoo th capsular contour. There is a 1 cm cyst within the central RIGHT lobe. Bile ducts: Nondilated. Gallbladder: Post cholecystectomy. Pancreas: Normal. Spleen: Normal. Adrenals: Normal. Kidneys: The RIGHT kidney is normal in s ize. There is an extra renal pelvis. No complex cystic or solid enhancing renal lesions are present. The LEFT kidney has been removed. Urinary Bladder: Normal. Lymph Nodes: No enlarged lymph nodes. Bowel: Scattered colonic diverticula wit hout diverticulitis. The terminal ileum and appendix are normal. No dilated smal l or large bowel present. No abnormal bowel wall thickening present. Peritoneum and mesentery: No ascites, fr ee air, or loculated fluid collection. No mesenteric inflammation. Osseous structures: There is mild levoco nvex curvature of the lumbar spine centered on the L3 vertebral body with a ssociated degenerative changes of the nearby levels where there are endplate r eactive changes and disc height loss. No suspicious osseous lesions. IMPRESSION Minimal aortoiliac luminal diameters as described above. 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 Thank you for letting us participate in the care of this patient. If you are a health care provider and have any questi ons regarding this report, please contact the number below. For patients w ho have questions please contact the health wild animal caretaker that requested your imaging first. Electronically signed by: Dc bahena MD, [facility] ([phone]), at 08/24/2021 2:25 PM Issac Mcdowell MD IMG CT ORDERABLES CT Cardiac for Morphology & Function (08/24/2021 11:25 AM EST) Anatomical Region Laterality Modality Chest, Cardiac Computed Tomography Specimen (Source) Anatomical Collection Method Collection Time Re ceived Time Location / / Volume Laterality 08/24/2021 11:44 AM EST Impressions 08/25/2021 1:02 PM EST Pre-TAVR measurements as above. Diffuse mild mosaic pattern of the lungs may indicate mild infectious/inflammatory bronchitis bronc hiolitis. There are numerous bilateral sub-6 mm pu lmonary nodules which are of indeterminate significance (assuming the absence of any known malignancy). Thank you for letting us participate in the care of this patient. ??If you are a health care provider and have any questi ons regarding this report, please contact the number below. ??For patients who have questions please contact the health wild animal caretaker that requested your imaging first. ? Electronically signed by: Mary Melendez MD, [facility] ([phone]), at 08/25/2021 1:02 PM Narrative 08/25/2021 1:02 PM EST EXAMINATION: CT CARDIAC FOR MORPHOLOGY & FUNCTION CLINICAL HISTORY: TAVR screening, aortic annular sizing and calcification; please include subclavian assessment, Ao rtic stenosis COMPARISON: None. TECHNIQUE: After time bolus, 0.625 mm th ick axial contiguous sections were obtained through the heart via ECG-gated helical acquisition during intravenous administration of 101.4 cc Visipaque 320 . (CTA abdomen and pelvis is reported separately.) Post-processing was perform ed on an independent computer workstation including multiplanar MIP re constructions. FINDINGS: Heart rate: mean 74 bpm, range 72 to 75 bpm Heart rhythm: regular ECG gating: Successful identification of every R wave. Aortic valve: Imaging phase: 35% Calcification of leaflets: Tricuspid, tr ileaflet aortic valve. Severe calcifications of the noncoronary leafle t. Mild calcifications of the left and right leaflet. Suggested fluoroscopic angulation based on line extending through the nadirs of the three sinuses of Valsalva, set equid istant: ?? Anterior oblique plane: ROEL Anterior oblique angulation: 24 Craniocaudal plane: [employer]IST Craniocaudal angulation: 2 [id number]-br-jeeohsxv height: Imaging phase: 95% Right: 14.2 mm Left: 14 mm Valve leaflet length: Imaging phase: 95% Right: 16.7 mm Left: 18 mm Annulus: Imaging phase: 35% Diameters: 21.5 mm x 25.1 mm Area: 426 mm2 Circumference: 75 mm Calcification: None. Aortic root/sinuses of Valsalva: Imaging phase: 35% Diameters: 36.6 mm Aortoventricular angle: 50 degrees Sinotubular junction: Imaging phase: 35% Effacement: Not effaced. Diameters: 27.7 mm x 29.6 mm Area: 642 mm2 Circumference: 91 mm Calcification: None. Thoracic aorta beyond the sinotubular ju nction: Mid ascending aorta: 32.9 mm x 34.7 mm Mid aortic arch: 26 mm Mid descending aorta: 23 mm Distal descending aorta, near hiatus: 24 mm Aortic arch branch vessels: Configuration: Common origin of the righ t brachiocephalic trunk and the left common carotid artery. Patency: Widely patent. Left subclavian artery: 5.3 mm x 7.2 mm Left axillary artery: 4.4 mm x 5.6 mm Annulus to innominate distance: 10 cm Other cardiovascular structures: No sign ificant findings. Pulmonary parenchyma, airways, pleura: S equela of left upper lobectomy. Mild mosaic pattern throughout the lungs . Multiple bilateral sub-6 mm pulmonary nodules (for example series 8, image 57, 90, 110, 162, 178, 208, 239). Upper abdomen: See separately reported C TA abdomen and pelvis. Skeletal structures: No significant find ings. Procedure Note Mary Shanks MD - 2020 EXAMINATION: CT CARDIAC FOR MORPHOLOGY & FUNCTION CLINICAL HISTORY: TAVR screening, aortic annular sizing and calcification; please include subclavian assessment, Ao rtic stenosis COMPARISON: None. TECHNIQUE: After time bolus, 0.625 mm th ick axial contiguous sections were obtained through the heart via ECG-gated helical acquisition during intravenous administration of 101.4 cc Visipaque 320 . (CTA abdomen and pelvis is reported separately.) Post-processing was perform ed on an independent computer workstation including multiplanar MIP re constructions. FINDINGS: Heart rate: mean 74 bpm, range 72 to 75 bpm Heart rhythm: regular ECG gating: Successful identification of every R wave. Aortic valve: Imaging phase: 35% Calcification of leaflets: Tricuspid, tr ileaflet aortic valve. Severe calcifications of the noncoronary leafle t. Mild calcifications of the left and right leaflet. Suggested fluoroscopic angulation based on line extending through the nadirs of the three sinuses of Valsalva, set equid istant: Anterior oblique plane: ROEL Anterior oblique angulation: 24 Craniocaudal plane: COMM[employer]ETING SPECIALIST Craniocaudal angulation: 2 Jjxjddh-nm-icemazyw height: Imaging phase: 95% Right: 14.2 mm Left: 14 mm Valve leaflet length: Imaging phase: 95% Right: 16.7 mm Left: 18 mm Annulus: Imaging phase: 35% Diameters: 21.5 mm x 25.1 mm Area: 426 mm2 Circumference: 75 mm Calcification: None. Aortic root/sinuses of Valsalva: Imaging phase: 35% Diameters: 36.6 mm Aortoventricular angle: 50 degrees Sinotubular junction: Imaging phase: 35% Effacement: Not effaced. Diameters: 27.7 mm x 29.6 mm Area: 642 mm2 Circumference: 91 mm Calcification: None. Thoracic aorta beyond the sinotubular ju nction: Mid ascending aorta: 32.9 mm x 34.7 mm Mid aortic arch: 26 mm Mid descending aorta: 23 mm Distal descending aorta, near hiatus: 24 mm Aortic arch branch vessels: Configuration: Common origin of the righ t brachiocephalic trunk and the left common carotid artery. Patency: Widely patent. Left subclavian artery: 5.3 mm x 7.2 mm Left axillary artery: 4.4 mm x 5.6 mm Annulus to innominate distance: 10 cm Other cardiovascular structures: No sign ificant findings. Pulmonary parenchyma, airways, pleura: S equela of left upper lobectomy. Mild mosaic pattern throughout the lungs . Multiple bilateral sub-6 mm pulmonary nodules (for example series 8, image 57, 90, 110, 162, 178, 208, 239). Upper abdomen: See separately reported C TA abdomen and pelvis. Skeletal structures: No significant find ings. IMPRESSION Pre-TAVR measurements as above. Diffuse mild mosaic pattern of the lungs may indicate mild infectious/inflammatory bronchitis bronc hiolitis. There are numerous bilateral sub-6 mm pu lmonary nodules which are of indeterminate significance (assuming the absence of any known malignancy). Thank you for letting us participate in the care of this patient. If you are a health care provider and have any questi ons regarding this report, please contact the number below. For patients w ho have questions please contact the health wild animal caretaker that requested your imaging first. Issac Mcdowell MD IMG CT ORDERABLES documented in this encounter Visit Diagnoses Diagnosis Severe aortic stenosis Aortic valve disorders documented in this encounter Administered Medications Inactive Administered Medications - up to 3 most recent administrations Medication Order MAR Action Action Date Dose Rate Site iodixanoL (Visipaque) (320 Given 08/24/2021 12:10 PM EST 101 mLs mg/mL) injection solution 0-200 mL 0-200 mL, Intravenous, ONCE PRN, 1 dose, Starting on Radha 08/24/21 at 1209, Until Radha 08/24/21 at 1210, Per Protocol, Radiology Contrast, Routine documented in this encounter Care Teams Wedding Makeup Artist Relationship Specialty Start Date End Date Zoey Lucas MD PCP - General 09/05/[address] [facility] [address] [place] [address] documented as of this encounter
--- OUTSIDE RECORDS SUMMARY | 2022-07-27 00:17 | XMS_ITS | Encounter Summary ---
:1940 Author Organization [facility] [place] [address] Care Team Providers Name Role Phone Zoey Lucas MD Primary Care Provider Reason for Visit Reason Comments Posterior Capsule Opacification Encounter Details Date Type Department Care Team Description 03/26/2019 Office Visit Ophthalmology at [facility] Anabela Rodríguez, S/P YAG capsulotomy, [facility] [place] [address] [place] [address] OPHTHALMOLOGY DEPT [place], [place] [address] Social History Tobacco Use Types [...] documented as of this encounter Progress Notes Primo Rodríguez MD - 03/26/2019 12:45 PM EDT 1) Post op check for YAG OD - Vision 20/20 OD - DFE intact RTC 1 year for CEE and GCA I, Dc Swan, have performed the documentation for this encounter in the presence of and actingas a scribe for Primo Rodríguez MD. I performed the services which were documented by the scribe, and I agree with the accuracy of the documentation in this encounter. ?? Primo Rodríguez MD documented in this encounter Plan of Treatment Not on filedocumented as of this encounter Visit Diagnoses Diagnosis S/P YAG capsulotomy, right documented in this encounter Care Teams Ambulance Dispatcher Relationship Specialty Start Date End Date Zoey Lucas MD PCP - General 09/05/[address] [place] [address] [place] [address] documented as of this encounter
--- OUTSIDE RECORDS SUMMARY | 2022-07-27 00:17 | XMS_ITS | Encounter Summary ---
:1940 Author Organization [facility] Address [address] [place] [address] Care Team Providers Name Role Phone Zoey Lucas MD Primary Care Provider Reason for Visit Reason Comments Back Pain new patient / Team Consultation (Routine) - Closed Specialty Diagnoses / Procedures Referred By Contact Refer red To Contact Pain and Spine Center Diagnoses Spinal stenosis, lumbar region with neurogenic claudication Spine - Lumbar stenosis/ MRI 06/06/21 & XR 05/16/21 @ [facility] Zoey Lucas MD [facility] Pain And [address] Sp[address] [place], [place] [address] [place] [address] Phone: Fax: Referral ID Status Reason Start Date Expiration Date Visits Requ ested Visits Authorized [id number] Closed 06/09/2021 06/09/2022 1 1 Encounter Details Date Type Department Care Team Description 07/13/2021 Office Visit Pain and Spine Center Dawson Salazar MD [facility] [place] [address] Nerve pain due to at [facility] Clary Castillo APRN [facility] [place] [address] spinal stenosis [facility] (Primary Dx) [place] [id number] Social History Tobacco Use Types Packs/Day Years [...] Sign Reading Time Taken Comments Blood Pressure 156/73 07/13/2021 9:51 AM EDT Pulse 73 07/13/2021 9:51 AM EDT Temperature - - Respiratory Rate - - Oxygen Saturation 99% 07/13/2021 9:51 AM EDT Inhaled Oxygen Concentration - - Weight 80.3 kg (177 lb) 07/13/2021 9:51 AM EDT Height - - Body Mass Index 31.35 01/22/2018 11:31 AM EDT documented in this encounter Patient Instructions Patient InstructionsClary Castillo APRN - 07/13/2021 10:00 AM EDT Cluneal nerve block FU with me 3-4 weeks post documented in this encounter Progress Notes Clary Castillo APRN - 07/13/2021 10:00 AM EDT Images from the original note were not included. [facility] Date of Consultation: July 12, 2021 Referring Provider: Zoey Lucas Reason for request of consultation: Left sided low back pain Chief Complaint: increasing low back pain on the left History of Present Illness: Ms. Joe is a 81 y.o. year-old female who presents to the pain clinic seen as a scheduled, shared visit with Dr Salazar. The patient reports that she has had chronic back pain for many many years. 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 She lives in [place]. She likes to garden and she [...] point where she needs to see a hydrography teacher which she is seeing on the . 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 metoprolol succinate XL (Toprol-XL) 25 mg Tablet Sustained Release 24 hr daily. ??? losartan (Cozaar) 25 mg Tablet 2 times daily. ??? cholecalciferol, Vitamin D3, 25 mcg (1,000 unit) Capsule 2,000 Units daily. ??? predniSONE (DELTASONE) 1 mg Tablet Take 2 mg by mouth daily. ??? predniSONE (DELTASONE) 5 [...] Take 1,200 mg by mouth daily. ??? hydrochlorothiazide (HYDRODIURIL) 25 mg tablet 25 MG = 1 Tablet(s), PO, QAM ??? hydrocortisone 2.5 % cream 1 Appl(s), Top, Twice daily (Patient taking differently: 1 Appl(s), Top, Twice daily, PRN) ??? triamcinolone (KENALOG) 0.1 % ointment Apply topically as needed. (Patient taking differently: Apply topically as needed.) Allergies & Adverse Reactions: Beta-blockers (beta-adrenergic blocking agts), Doxazosin mesylate, Lisinopril, and Nickel Problem List: Patient Active Problem List Diagnosis Code ??? 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 Giant cell arteritis M31.6 Social History: Social History Socioeconomic History ??? Marital status: Spouse name: Not on file ??? Number of children: Not on file ??? Years of education: Not on file ??? Highest education level: Not on file Occupational History ??? Occupation: retired from [employer] Tobacco Use ??? Smoking status: Former Smoker Quit date: 10/20/1983 Years since quittin.7 ??? Smokeless tobacco: Never Used Substance and Sexual Activity ??? Alcohol use: Yes Alcohol/week: 1.0 standard drink Types: 1 Glasses of wine per week Comment: occasionaly ??? Drug use: No ??? Sexual activity: Not on file Other Topics Concern ??? Do You live alone? Not Asked ??? Tobacco in Home Not Asked Social History Narrative ??? Not on file Social Determinants of Health Financial Resource Strain: ??? Difficulty of Paying Living Expenses: Not on file Food Insecurity: ??? Worried About Running Out of Food in the Last Year: Not on file ??? Ran Out of Food in the Last Year: Not on file Transportation Needs: ??? Lack of Transportation (Medical): Not on file ??? Lack of Transportation (Non-Medical): Not on file Physical Activity: ??? Days of Exercise per Week: Not on file ??? Minutes of Exercise per Session: Not on file Family History Family History [...] 1983 Left upper lobe- precancer ??? PRO REMV CATARACT EXTRACAP,INSERT LENS,COMP Right 12/05/2016 CATARACT EXTRACTION, EXTRACAPSULAR, WITH LENS INSERTION, COMPLEX (WRVU 11.08) performed by Primo Rodríguez MD at [facility] ??? PRO TEMPORAL ARTERY LIGATN OR BX Bilateral 10/25/2015 LIGATION OR BIOPSY, TEMPORAL ARTERY performed by Sukhdev Bhatti MD at [facility] MAIN OR ??? YAG CAPSULOTOMY Right 03/20/2019 SK Review of Systems: Denies fever, chills, weight loss, + SOB, abdominal pain, leg weakness/numbnes, arm weakness/numbness, bowel or bladder incontinence, balance issues + weight gain ( 20 pounds with steroids), uses a cane for safety ( lives alone and promised children) RISK ASSESSMENT: Smoking:no Alcohol:no Physical Exam: No data found. Appearance/ Behavior Well groomed, good eye contact, relaxed, cooperative, normal speech, no acute distress, no involuntary movements Lungs Respirations unlabored Cardiovascular Bilateral lower extremities warm and dry, pulses present and symmetrical Skin No rash, asymmetric hair loss, bruises, scars, swelling Musckuloskeletal Inspection/Palpation/ Range of Motion/Facet Loading maneuvers Gait: Nonantalgic Assistive device: None Heel, toe, heel to toe: Without difficulty, they can balance on each leg without hip drop. Inspection: good alignment, no excessive curvature, shoulder and hip levels equal bilaterally; no skin breakdown ROM: Mildly limited in flexion, extension, facet loading is mildly positive, there is tenderness over the left side of the low back approximately waist level or slightly above in the paraspinal area. She has reflexes that are slightly brisk at her knees, symmetrical the ankles, normal strength and sensation. No Ada or clonus no difficulty with balance walking although she is quite cautious. Pain with extension over the cluneal nerve site on the left there is also tenderness there. Imaging & Other Studies: Assessment: Ms. Joe is a 81 y.o. year-old female who presents to the [facility] seen as a scheduled, shared visit with Dr Salazar. Please also see Dr. Vizcaino's note. We discussed a couple of interventions immediately including a trial of diclofenac gel, a wheeled walker which she can use while standing. We also talked about a cluneal nerve block which can be done here. There should be follow-up after the cluneal nerve block and if effective it can be repeated but if ineffective we could also consider medial branch blocks and/or radiofrequency although those would likely have to wait until after her cardiac visit regarding her aortic valve and any potential treatment for that. Thank you Dr. Lucas for allowing my participation in Zeny Joe's care. Clary Castillo, MS, TRANSFORMATION CONSULTANT-BC, PENSIONHOLDER INFORMATION CLERK Nurse practitioner Pain management [facility] I have seen and examined the patient and reviewed the fellow's above history and agree with the details as written. The assessment and plan were formulated in discussion with me, and I agree with them as documented. Pleasant 81 yof with low back pain in her left hip. Her pain is axial predominantly and her pain has been refractory to conservative care. Cluneal neuralgia. Recommend cluneal nerve blockto the left as next step. Thank you for allowing us to participate in her care. Janes Salazar MD, MS Contract Associate Manager of Anesthesiology [facility] [employer] [address] [id number] / [facility] documented in this encounter Plan of Treatment Not on filedocumented as of this encounter Visit Diagnoses Diagnosis Nerve pain due to spinal stenosis - Prim marlyn Spinal stenosis, lumbar region, with em rogenic claudication documented in this encounter Care Teams Elementary [employer] Band Director Relationship Specialty Start Date End Date Zoey Lucas MD PCP - General 09/05/[address] [place] [address] documented as of this encounter
--- OUTSIDE RECORDS SUMMARY | 2022-07-27 00:17 | XMS_ITS | Encounter Summary ---
:1940 Author Organization [facility] Address [address] [place] [address] Care Team Providers Name Role Phone Zoey Lucas MD Primary Care Provider Encounter Details Date Type Department Care Team Description 06/06/2021 Ancillary Procedure Radiology Library at Zoey Harris MD [facility] [address] [address] [place], [place] [phone] (Wo rk) [phone] Social History Tobacco Use Types Packs/Day Years [...] Associated Diagnosis Comme nts FILM LIBRARY Routine 06/06/2021 12:00 AM Results for this STORAGE ONLY MR EDT procedure ar e in SPINE the results section. documented in this encounter Results Film Library- Storage Only MR Spine (06/06/2021 12:00 AM EDT) Specimen (Source) Anatomical Location Collection Method / Collectio n Time Received Time / Laterality Volume Narrative [facility] - 07/12/2021 10:44 AM EDT This exam is auto-finalizing. It's purpo se is for storage only. Zoey Lucas MD IMG FILM LIBRARY ORDERABLES Performing Organization Address City/State/ZIP Code Phon e Number [place], [place] documented in this encounter Visit Diagnoses Not on filedocumented in this encounter Care Teams Certified Personal Trainer Relationship Specialty Start Date End Date Zoey Lucas MD PCP - General 09/05/[address] [place] [address] documented as of this encounter
--- OUTSIDE RECORDS SUMMARY | 2022-07-27 00:17 | XMS_ITS | Encounter Summary ---
:1940 Author Organization [facility] Address [address] [place] [address] Care Team Providers Name Role Phone Zoey Lucas MD Primary Care Provider Encounter Details Date Type Department Care Team Description 08/24/2021 [place] Visit [place] [facility]ortic valve stenosis, [facility] Lizet carbajal [place] [address] disease unspecified [phone] Social History Tobacco Use Types Packs/Day Years [...] Time Taken Comments Blood Pressure 149/74 08/24/2021 1:00 PM EST Pulse 88 08/24/2021 1:00 PM EST Temperature - - Respiratory Rate - - Oxygen Saturation 99% 08/24/2021 1:00 PM EST Inhaled Oxygen Concentration - - Weight 78.9 kg (174 lb) 08/24/2021 1:00 PM EST Height 160 cm (5' 2.99) 08/24/2021 1:00 PM EST Body Mass Index 30.83 08/24/2021 1:00 PM EST documented in this encounter Progress Notes Cris Gomez LNA - 08/24/2021 1:00 PM EST Patient did walk test, had EKG and did KCCQ documented in this encounter Plan of Treatment Not on filedocumented as of this encounter Visit Diagnoses Diagnosis Aortic valve stenosis, etiology of cardi ac valve disease unspecified documented in this encounter Care Teams Coal Weigher Relationship Specialty Start Date End Date Zoey Lucas MD PCP - General 09/05/[address] [place] [address] documented as of this encounter
--- OUTSIDE RECORDS SUMMARY | 2022-07-27 00:17 | XMS_ITS | Encounter Summary ---
:1940 Author Organization [facility] [place] [address] Care Team Providers Name Role Phone Zoey Lucas MD Primary Care Provider Reason for Referral Diagnostic Test (Routine) - Closed Specialty Diagnoses / Procedures Referred By Contact Refer red To Contact Radiology Diagnoses Severe aortic stenosis Issac Mcdowell MD [facility] Rad Ct Scan Procedures CT Angiogram Abdomen & Pelvis w Contrast (Generic) [facility] [place] [address] [place] [address] Referral ID Status Reason Start Date Expiration Date Visits V isits Requested Authorized [id number] Closed Specialty 07/25/2021 01/23/2023 1 1 Service Requested iagnostic Test (Routine) - Closed Specialty Diagnoses / Procedures Referred By Contact Refer red To Contact Radiology Diagnoses Severe aortic stenosis Issac Mcdowell MD [facility] Rad Ct Scan Procedures CT Cardiac for Morphology & Function [facility] [place] [address] [place] [address] Referral ID Status Reason Start Date Expiration Date Visits V isits Requested Authorized [id number] Closed Specialty 07/25/2021 01/23/2023 1 1 Service Requested Encounter Details Date Type Department Care Team Description 07/25/2021 Orders Only Cardiology [place] [facility] Albino Garcia Severe aortic stenosis [facility] [place] [address] Social History Tobacco Use Types Packs/Day [...] documented as of this encounter Progress Notes Albino Garcia RN - 07/25/2021 9:11 AM EDT Ms. Joe is referred by Yuki Sood MD for consideration of treatment options for severe, symptomatic, aortic stenosis; please refer to notes in scanned documents for detailed history and assessment. In brief, the patient has been followed for known aortic stenosis which by echo is now severe.She isn't very active but does experience exertional shortness of breath. Her history includes the following: ; HTN; CKD; COPD; HLD; Back pain; Lumbar stenosis with claudication; Asthma and Arthritis. Echo 06/27/2021: EF 57%; REGAN 0.91; AVAi 0.53; pV 3.47; Gr 52/27; Trace AR/MR/TR Labs 01/22/2018: WBC 7.8; Hgb 12.6; Hct 38.9; Plts 245; Cr 1.12; eGFR 47; Alb 4.7 STS: 3.1 Plan: Patient is aware of referral and is interested in proceeding with the evaluation. Schedule [facility], diagnostics, frailty evaluation and cardiac cath. documented in this encounter Plan of Treatment Not on filedocumented as of this encounter Results EKG 12 Lead (08/24/2021 1:11 PM EST) [facility] gist Method Time Signature Ventricular rate 80 BPM MUSE SYSTEM Atrial Rate 80 BPM MUSE SYSTEM P-R Interval 180 ms MUSE SYSTEM QRS Duration 78 ms MUSE SYSTEM Q-T Interval 386 ms MUSE SYSTEM QTC Calculated 445 ms MUSE SYSTEM (Bezet) Calculated P [place] 67 degrees MUSE SYSTEM Calculated R [place] 18 degrees MUSE SYSTEM Calculated T [place] 71 degrees MUSE SYSTEM INTERPRETATION Normal sinus rhythm MUSE SYSTEM Normal ECG No previous ECGs available Confirmed by Dean Waddell ([id number]) on 08/25/2021 2:18 :08 PM Specimen Anatomical Collection Method Collection Time Receive d Time (Source) Location / / Volume Laterality 08/24/2021 1:11 PM 2:18 EST PM EST Issac Mcdowell MD ECG ORDERABLES Performing Organization Address City/State/ZIP Code Phon e Number MUSE SYSTEM CT Angiogram Abdomen & Pelvis w Contrast [...] who have questions please contact the health chronic care nurse that requested your imaging first. ? Narrative 08/24/2021 2:25 PM EST EXAMINATION: CT ANGIOGRAM ABDOMEN AND PELVIS W CONTRAST (GENERIC) CLINICAL HISTORY: TAVR screening, iliac and bifurcation sizing and calcification, aortic stenosis TECHNIQUE: Helical CTA of the abdomen an d pelvis was performed after intravenous administration of contrast. Administered 101.2 ml of VISIPAQUE 320.00 mg/ml. Coronal and sagittal reconstructions wer e generated. Three-dimensional volume reconstructions were created on an [employer] computer workstation. COMPARISON: None FINDINGS: VASCULAR Abdominal [...] Three-dimensional volume reconstructions were created on an [employer] computer workstation. COMPARISON: None FINDINGS: VASCULAR Abdominal [...] ho have questions please contact the health chronic care nurse that requested your imaging first. Issac Mcdowell MD IMG CT ORDERABLES CT [...] who have questions please contact the health chronic care nurse that requested your imaging first. ? Narrative 08/25/2021 1:02 PM EST EXAMINATION: CT [...] set equid istant: ?? Anterior oblique plane: LIBYAN Anterior oblique angulation: 24 Craniocaudal plane: HORTICULTURAL FARMER Craniocaudal angulation: 2 [id number] height: Imaging phase: 95% Right: 14.2 mm [...] Valsalva, set equid istant: Anterior oblique plane: LIBYAN Anterior oblique angulation: 24 Craniocaudal plane: HORTICULTURAL FARMER Craniocaudal angulation: 2 [id number] height: Imaging phase: 95% Right: 14.2 mm [...] ho have questions please contact the health chronic care nurse that requested your imaging first. Issac Mcdowell MD IMG CT ORDERABLES XR Chest PA & Lateral (Generic) (08/24/2021 [...] who have questions please contact the health chronic care nurse that requested your imaging first. ? Narrative 08/24/2021 12:07 PM EST EXAMINATION: XR [...] original. EXAMINATION: XR CHEST PA AND LATERAL (eDosseaIC) CLINICAL HISTORY: TAVR screening TECHNIQUE: PA and [...] ho have questions please contact the health chronic care nurse that requested your imaging first. Issac Mcdowell MD IMG DX ORDERABLES (ABNORMAL) Comprehensive metabolic panel (non-fasting) (08/24/2021 10:03 AM EST) P athologist Signature Glucose Lvl 133 65 - 199 [facility] mg/dL [facility] Comment: Diabetes: >=200 mg/dL plus symp toms BUN 25 (H) 8 - 18 mg/dL [facility] Creatinine 1.17 0.70 - 1.20 mg/dL [facility] Sodium 138 135 - 145 mmol/L [facility] Potassium 4.3 3.5 - 5.0 mmol/L [facility] Comment: Please note: ??Patients with [...] LABORATORY Calcium 10.4 8.5 - 10.5 mg/dL [facility] Total Protein 7.6 6.1 - 8.0 g/dL [facility] Albumin 4.5 3.2 - 5.2 g/dL [facility] AST 13 0 - 30 unit/L [facility] ALT 18 0 - 30 unit/L [facility] Alk Phos 48 35 - 105 [...] Organization Address City/State/ZIP [place] [address] documented in this encounter Visit Diagnoses Diagnosis Severe aortic stenosis Aortic valve disorders Severe aortic stenosis Aortic valve disorders Severe aortic stenosis Aortic valve disorders documented in this encounter Care Teams Siderographist Relationship Specialty Start Date End Date Zoey Lucas MD PCP - General 09/05/[address] [place] [address] documented as of this encounter
--- OUTSIDE RECORDS SUMMARY | 2022-07-27 00:17 | XMS_ITS | Encounter Summary ---
:1940 Author Organization [facility] Address [address] [place] [address] Care Team Providers Name Role Phone Zoey Lucas MD Primary Care Provider Encounter Details Date Type Department Care Team Description 08/29/2021 Hospital Encounter Same Day Program at [facility] Screening for cardiovascular condition; Yuki Rizvi MD Aortic valve stenosis, etiology of cardi ac valve disease unspecified; [facility] Aortic valve disease; [facility] DR [address], unspecified type Drive CARDIOLOGY [place], [place] DEPT. [address] [place], [place] [phone] Social History Tobacco Use Types Packs/Day Years [...] Sign Reading Time Taken Comments Blood Pressure 126/67 08/29/2021 4:45 PM EST Pulse 78 08/29/2021 4:27 PM EST Temperature 37.1 ??C (98.8 ??F) 08/29/2021 4:27 PM EST Respiratory Rate 24 08/29/2021 4:27 PM EST Oxygen Saturation 97% 08/29/2021 4:45 PM EST Inhaled Oxygen Concentration - - [...] by your doctor, do not take any mucy-mmf-yzkzwnv medicines or herbal preparations without first discussing this with your doctor or pharmacist. There is the possibility of side effects and interactions when these are combined. Follow Up Care Who to call with questions or problems If there are any questions or problems that you think might be related to your cardiac cath or angioplasty, contact the photoengraving sketch maker preparation room worker by calling [facility] at . documented in this encounter Medications [...] catheterization by Dr. Sood for evaluation of C. 81F with history of COPD, HLD, HTN, [...] catheterization for pre-TAVR workup. Will proceed with [facility]. - proceed as planned - consent signed [...] Procedure Note: Patient Name: Zeny Joe : [id number] MR#: [id number] Case Date: 08/29/2021 Rail Transit Operator: Surgeon(s) and Role: * Issac Pena MD - Primary * Nba Bowman MD - Fellow Preoperative diagnosis: Screening for cardiovascular condition [Z13.6]Aortic valve stenosis, etiology of cardiac valve disease unspecified [I35.0] Postoperative diagnosis: * aortic stenosis * Procedure(s) performed: C Coronary angio Access: Right radial Right antecubital [...] from the original note were not included. [facility] JESÚS [place] [id number] CARDIOVASCULAR MEDICINE OUTPATIENT CONSULTATION [facility] Zeny Joe Primary Care Provider: Zoey Lucas [...] Yuki Sood. Social history: She lives in [facility] [place], where she retired along with her 25 years ago. Her 13 years ago, and she has a son in the area. 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 We reviewed that [...] Blood Gas Historical (08/29/2021 1:44 PM EST) [facility] Method Time Signature POC pH 7.43 7.35 - [facility] 7.45 [facility] LABORATORY POC PCO2 35 35 - 45 [facility] LABORATORY POC PO2 77 (L) 85 - 104 [facility] LABORATORY POC Base Excess -1.0 -3.0 - 3.0 [facility] K mmol/L [facility] LABORATORY POC HCO3 23.3 20.0 - [facility] 26.0 [facility] mmol/[facility] LABORATORY POC Sodium 138 135 - 145 [facility] mmol/L [facility] POC Potassium 3.9 3.5 - 5.0 [facility] mmol/L [facility] POC Hematocrit 32.0 (L) 34.0 - [facility] 45.0 % [facility] POC Calc Hgb 10.9 (L) 11.2 - [facility] 15.7 g/dL [facility] Comment: The calculation of hemoglobin f rom hematocrit assumes a normal MCHC. POC Bgas Loc CC LAB [facility] LABORATORY Specimen Anatomical Collection Method Collection Time Receive d Time (Source) Location / / Volume Laterality Blood 08/29/2021 1:44 PM 9:00 EST AM EST [facility] MD CHEMISTRY ORDERABLES Performing Organization Address City/State/[place] [address] CARDIAC CATHETERIZATION (08/29/2021 1:12 PM EST) Anatomical Region Laterality Modality Other Specimen (Source) Anatomical Location Collection Method / Collectio n Time Received Time / Laterality Volume Narrative 08/29/2021 4:04 PM EST ?[facility] ? Cardiac Cathete rization/Intervention Report ? Patient Name: Zeny Joe. ? Procedure Date: 08/29/2021 ? A #: [id number] ? Primary Physician: Issac Pena ? Case #: [id number] ? File Name: [id number] ? Catheterization Order Number: [id number] ? [facility] ? Final Report [place], [place] ? Patient Name: ? Zeny L. Kal e ?ID#: ?[id number] ? : ?1940 ? Procedure Date: ? November 16, 20 21 ?Case #: ? [id number] ? Room: ? 6 ? Case Physician: ? Issac Pena M.D. ?Start: ?12:40 ?Fellow: ? Nba Gallagher G acad, M.D. ?Admission: ??08/29/2021 ? Referring Physician: ??Yuki Sood M.D. ? Procedures: ?* Coronary Angiography ?* Right Heart Catheterization ?* Oximetry ?* Arterial Blood Gases ? History ?Zeny Joe is an 81 year o ld woman. She has hypertension. The ?patient's smoking status is For palomo. She has hypercholesterolemia ?controlled by diet. The patient also has a history of chronic obstructive ?pulmonary disease. Prior to the initiation of this procedure, the patient ?was designated as ASA Class III . [facility] clinical frailty scale is 6: ?Moderately [...] ? 100. ?I-Stat: ? I-Stat was performed i pedro the I-Stat analyzer at 12:45: Na+: 138, [...] heart ?catheterization, oximetry and ABG. ? Issac Pena, M.D. ? Electronically Signed by: Issac Nash s, M.D. ? Report Finalized: 08/29/2021 ??15:55 ? Procedure Note Issac Pena MD - 08/29/2021Formatt ing of this note might be different from the original. [facility] Cardiac Catheterization/Intervention Re port Patient Name: Zeny oJe Procedure Date: 08/29/2021 A #: [id number] Primary Physician: Issac Pena Case #: [id number] File Name: [id number] Catheterization Order Number: [id number] [facility] Final Report [place], [place] Patient Name: Zeny Joe ID#: [id number] : 1940 Procedure Date: August 29, [...] was designated as ASA Class III. The [facility] clinical frailty scale is 6: Moderately [...] MAR Action Action Date Dose Rate Site sodium chloride 0.9% New Bag 08/29/2021 1:25 PM EST 50 mL/hr 50 mL/hr infusion 50 mL/hr, Intravenous, CONTINUOUS, Starting on Sat08/29/21 at 1345, Until Sat08/29/21 at 1644, Recovery (Recovery-Hospital Unit) documented in this encounter Active and Recently [...] solution (CANCELED) 1307 (Given - Provider: Laurie Lopez RN) ONCE PRN, Starting on Sat08/29/21 at 13 07, Until Sat08/29/21 at 1725, Cath (Intra-Procedure), Routine midazolam (pf) (Versed) (1 mg/mL) multi-dose injection (CANCELED ) 1242 (Given - Provider: Laurie Loepz RN) ONCE PRN, Starting on Sat08/29/21 at 12 42, Until Sat08/29/21 at 1725, Cath (Intra-Procedure), Routine verapamiL (Isoptin) (2.5 mg/mL) injection (CANCELED) 1256 (Given - Provider: Nba Bowman MD) ONCE PRN, Starting on Sat08/29/21 at 12 56, Until Sat08/29/21 at 1725, Administer over 2 Minutes, Cath (Intra-Procedure) documented in this encounter Care Teams After School Program Director Relationship Specialty Start Date End Date Zoey Lucas MD PCP - General 09/05/[address] [place] [address] documented as of this encounter
--- OUTSIDE RECORDS SUMMARY | 2022-07-27 00:17 | XMS_ITS | Encounter Summary ---
:1940 Author Organization [facility] [place] [address] Care Team Providers Name Role Phone Zoey Lucas MD Primary Care Provider Reason for Referral Diagnostic Test (Routine) - Closed Specialty Diagnoses / Procedures Referred By Contact Refer red To Contact Cardiology Diagnoses Severe aortic stenosis Issac Mcdowell MD [facility] Non-Inv Card Lab Procedures Echocardiogram Transthoracic([facility]) Transesophageal Echocardiogram (HANSA) [facility] [place] [address] [place] [address] Fax: Referral ID Status Reason Start Date Expiration Date Visits V isits Requested Authorized [id number] Closed Specialty 10/31/2021 10/31/2022 1 1 Service Requested Encounter Details Date Type Department Care Team Description 10/31/2021 Orders Only Cardiology at [facility] Jeremias Issac Dmitri, Severe aortic stenosis [facility] [place] [phone] CARDIOLOGY DEPT. [place], [place] [address] Social History Tobacco Use Types [...] on filedocumented as of this encounter Results ECHOCARDIOGRAM COMPLETE (11/17/2021 9:46 AM EST) Anatomical Region Laterality Modality Other Specimen (Source) Anatomical Location Collection Method / Collectio n Time Received Time / Laterality Volume 11/17/2021 Narrative 11/17/2021 9:58 AM EST Procedure: ?Transthoracic Echocardiogram Patient: ?THIERNO PARKNE L ?(Age): 1940(81y) Med Rec#: ? [id number] ?Sex: ?M ? Site Loc: ? [facility] ?Ht / Wt: ??160(cm)/78(kg) Pt. Loc: ?Broadband Engineer ?BSA: ?1.81 Study Date: ?? 11/17/2021 ?Pt. Type: Inpatient Tape: ? Referring: CHRISSY Reading: Rigoberto Aggarwal ([id number]) Spring Up Supervisor: Friend Elvis Diagnosis: *Nonrheumatic aortic (valve) stenosis [...] Vmax ?0.96 ? m/sec ? MV deceleration [id number] ?msec ? MV A-wave Vmax ?1.28 ? [...] 9:57:46 Images reviewed and interpretation verif ied [facility] Cardiac Ultrasound Laboratory Procedure Note Rigoberto Aggarwal MD - 11/17/2021Formatt ing of this note might be different from the original. Procedure: Transthoracic Echocardiogram Patient: THIERNO Melara DOB(Age): 1939(81y) Med Rec#: [id number] Sex: M Site Loc: [facility] Ht / Wt: 160(cm)/78(kg) Pt. Loc: Broadband Engineer BSA: 1.81 Study Date: 11/17/2021 Pt. Type: Inpatie nt Tape: Referring: CHRISSY Reading: Rigoberto Aggarwal ([id number]) Spring Up Supervisor: Elvis Miller Diagnosis: *Nonrheumatic aortic (valve) stenosis [...] MV E-wave Vmax 0.96 m/sec MV deceleration [id number] msec MV A-wave Vmax 1.28 m/sec MV [...] 11/17/2021 09:57:4 6 Images reviewed and interpretation low mccrary [facility] Cardiac Ultrasound Laboratory Issac Mcdowell MD ECHO ORDERABLES documented in this encounter Visit Diagnoses Diagnosis Severe aortic stenosis Aortic valve disorders Severe aortic stenosis Aortic valve disorders documented in this encounter Care Teams Rectifying Attendant Relationship Specialty Start Date End Date Zoey Lucas MD PCP - General 09/05/[address] [place] [address] [address] [place] [address] documented as of this encounter
--- OUTSIDE RECORDS SUMMARY | 2022-07-27 00:17 | XMS_ITS | Encounter Summary ---
:1940 Author Organization [facility] [place] [address] Care Team Providers Name Role Phone Zoey Lucas MD Primary Care Provider Encounter Details Date Type Department Care Team Description 10/31/2021 Notes Only Cardiology at [facility] Phoebe Restrepo, [place] [address] Social History Tobacco Use Types Packs/Day [...] encounter Progress Notes Phoebe Restrepo RN - 10/31/2021 2:51 PM ESTSummary: Structural Heart Note TAVR rescheduled due to surge capacity. Plan: TAVR SaturdayNov 17 documented in this encounter Plan of Treatment Not on filedocumented as of this encounter Visit Diagnoses Not on filedocumented in this encounter Care Teams Gas Line Installer Supervisor Relationship Specialty Start Date End Date Zoey Lucas MD PCP - General 09/05/[address] [place] [address] documented as of this encounter
--- OUTSIDE RECORDS SUMMARY | 2022-07-27 00:18 | XMS_ITS | Encounter Summary ---
:1940 Author Organization [facility] [place] [address] Care Team Providers Name Role Phone Zoey Lucas MD Primary Care Provider Reason for Visit Reason Comments Temporal Arteritis Encounter Details Date Type Department Care Team Description 03/20/2019 Office Visit Ophthalmology at [facility] Anabela Rodríguez, Giant cell arteritis; [facility] MD Primo [place] [address] [facility] [phone] OPHTHALMOLOGY [place], [place] [address] Social History Tobacco Use Types [...] encounter Progress Notes Primo Rodríguez MD - 03/20/2019 8:15 AM EDT Assessment and Plan: ?? 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 My examination revealed PION in the left eye. She was admitted for IV steroids after developing some peripheral right eye changes. Elevated ESR, subsequent TA biopsy positive. On steroids per rheumatology. ?? 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 She has been on prednisone 5 mg daily, in part due to diagnosis of PMR as well. Unchanged HVF today, stable temporal defect in the right, with diffuse depression in the left. Her optic nerves show temporal pallor in the right, and diffuse pallor in the left. MRI brain/orbits revealed enlarged extraocular muscles - TSH ordered is mildly elevated. This is likely thyroid related. Her TSH and free T4 is normal. Given that she is asymptomatic, without any diplopia- no acute management. ?? Findings discussed with Zeny Joe today and she has expressed understanding. She will call me if she has any further concerns. ?? Posterior subcapsular opacification, right eye - visually significant - YAG risks and benefits discussed. YAG OD today. - 1 week post op visit. documented in this encounter Plan of Treatment Not on filedocumented as of this encounter Procedures Procedure Name Priority Date/Time Associated Diagnosis Comme nts OCT OPTIC NERVE - Routine 03/20/2019 10:13 AM Visual field def ects Results for this OU - BOTH EYES EDT procedure are in the results section. FUNDUS PHOTOS - OU- Routine 03/20/2019 10:13 AM Giant cell art eritis Results for this BOTH EYES EDT procedure are i n the results section. AUTOMATED VISUAL Routine 03/20/2019 10:13 AM Giant cell arteri tis Results for this FIELD - EXTENDED - EDT procedure are in OU- BOTH EYES the results section. documented in this encounter Results OCT OPTIC [id number] EYES (03/20/2019 10:13 AM EDT) Anatomical Region Laterality Modality Other Specimen (Source) Anatomical Location Collection Method / Collectio n Time Received Time / Laterality Volume Narrative 03/20/2019 10:13 AM EDT Thinning OS>OD avf RNFL 66 OD, 45 OS Primo Rodríguez MD OPHTHALMOLOGY SERVICES ORD ERABLES FUNDUS PHOTOS - OU- BOTH EYES (03/20/2019 10:13 AM EDT) Anatomical Region Laterality Modality Other Specimen (Source) Anatomical Location Collection Method / Collectio n Time Received Time / Laterality Volume Narrative 03/20/2019 10:13 AM EDT Her optic nerves show temporal pallor in the right, and diffuse pallor in the left. Primo Rodríguez MD OPHTHALMOLOGY SERVICES ORD ERABLES AUTOMATED VISUAL FIELD - EXTENDED - OU- BOTH EYES (03/20/2019 10:13 AM EDT) Anatomical Region Laterality Modality Other Specimen (Source) Anatomical Location Collection Method / Collectio n Time Received Time / Laterality Volume Narrative 03/20/2019 10:13 AM EDT Right Eye Threshold was 24-2. Strategy was LOUIS. Left Eye Threshold was 24-2. Strategy was [place]OUIS. Notes Unchanged HVF today, stable temporal def ect in the right, with diffuse depression in the left. Primo Rodríguez MD OPHTHALMOLOGY SERVICES ORD ERABLES documented in this encounter Visit Diagnoses Diagnosis Giant cell arteritis Visual field defects Visual field defect, unspecified documented in this encounter Care Teams Lead Refinery Supervisor Relationship Specialty Start Date End Date Zoey Lucas MD PCP - General 09/05/[address] [place] [address] documented as of this encounter
--- OUTSIDE RECORDS SUMMARY | 2022-07-27 00:18 | XMS_ITS | Encounter Summary ---
:1940 Author Organization [facility] [place] [address] Care Team Providers Name Role Phone Zoey Lucas MD Primary Care Provider Encounter Details Date Type Department Care Team Description 03/27/2016 Laboratory Appointment Lab 3L Jani Rolon GCA (giant cell arteritis); [place] [id number] Social History Tobacco Use Types Packs/Day Years [...] Priority Date/Time Associated Comments Diagnosis HEMOGRAM Routine 03/27/2016 5:08 PM Chronic fatigue Result s for this EDT procedure are i n the results section. DIFFERENTIAL, Routine 03/27/2016 5:08 PM Chronic fatigue Resul ts for this AUTOMATED EDT procedure are i n the results section. CBC (WITH DIFF) Routine 03/27/2016 5:08 PM Chronic fatigue EDT TSH Routine 03/27/2016 5:08 PM Chronic fatigue Result s for this EDT procedure are i n the results section. COMPREHENSIVE Routine 03/27/2016 5:08 PM Chronic fatigue Resul ts for this METABOLIC PANEL EDT procedure ar e in (NON-FASTING) the results section. SEDIMENTATION RATE Routine 03/27/2016 11:14 GCA (giant cell Re sults for this AM EDT arteritis) procedure are i n the results section. CRP, CARDIAC RISK (HS Routine 03/27/2016 11:14 GCA (giant cell Results for this CRP) AM EDT arteritis) procedure are i n the results section. documented in this encounter Results (ABNORMAL) Differential, Automated (03/27/2016 5:08 PM EDT) [facility] gist Method Time Signature Neutrophils % 78.2 % [facility] Neutr Abs (ANC) 7.67 (H) 1.50 - [facility] 6.30 [facility] x10(3)/[facility] LABORATORY Lymphocytes % 13.5 % [facility] Lymphocytes Abs 1.3 1.0 - 3.6 [facility] x10(3)/[facility] LABORATORY Monocytes % 7.3 % [facility] Monocyte Abs 0.7 0.2 - 1.0 [facility] x10(3)/[facility] LABORATORY Eosinophils % 0.2 % [facility] Eosinophils Abs 0.0 0.0 - 0.5 [facility] x10(3)/[facility] LABORATORY Basophils % 0.2 % [facility] Basophils Abs 0.0 0.0 - 0.2 [facility] x10(3)/[facility] LABORATORY Immature Gran % 0.60 % [facility] Comment: Immature granulocytes(IG's)percentage an d absolute count will include metamyelocytes, myelocytes, and promyelo cytes. Blood smears from CBCs yielding IG's will be scanned manually for concor dance. If this scan disagrees with the automated IG or if promyelocytes are not ed, a manual differential will be performed. Lida Gran Abs 0.06 (H) 0.00 - 0.05 x10(3)/[facility] LABORATORY Specimen Anatomical Collection Method Collection Time Receive d Time (Source) Location / / Volume Laterality Blood specimen 03/27/2016 5:08 PM 016 5:17 (specimen) EDT PM EDT Resulting Agency Comment Spec In Lab Breanne Laird DO HEMATOLOGY ORDERABLES Performing Organization Address City/State/ZIP [place] [address] (ABNORMAL) Hemogram (03/27/2016 5:08 PM EDT) P athologist Signature WBC 9.8 4.0 - 10.0 [facility] x10(3)/[facility] LABORATORY RBC 3.97 3.93 - [facility] x10(6)/[facility] LABORATORY Hemoglobin 12.5 11.2 - J[facility] [place]UST[place] 15.7 gm/dL [facility] Hematocrit 37.4 34.0 - [facility] FAUST[facility] 45.0 % [facility] MCV 94.2 (H) 79.0 - [facility] 94[facility]0 [facility] LABORATORY MCH 31.5 26.6 - [employer] 32.2 pg [facility] MCHC 33.4 32.0 - [facility] [place] 36.5 gm/dL [facility] Platelets 311 145 - 370 [facility] x10(3)/[facility] LABORATORY RDWSD 45.6 35.0 - [facility] FAUSTINA 46.0 [facility] LABORATORY RDWCV 13.3 10.9 - [facility] FAUSTINA 14.4 % [facility] MPV 10.2 9.0 - 12.0 [facility] Specimen Anatomical Collection Method Collection Time Receive d Time (Source) Location / / Volume Laterality Blood specimen 03/27/2016 5:08 PM 016 5:17 (specimen) EDT PM EDT Resulting Agency Comment Spec In Lab Breanne Laird DO HEMATOLOGY ORDERABLES Performing Organization Address City/[facility]/ZIP Code Phon e Number [address] TSH (03/27/2016 5:08 PM EDT) athologist Signature TSH 1.33 0.27 - 4.20 [facility] mcIU/mL [facility] Specimen Anatomical Collection Method Collection Time Receive d Time (Source) Location / / Volume Laterality Blood specimen 03/27/2016 5:08 PM 016 5:17 (specimen) EDT PM EDT Resulting Agency Comment Spec In Lab Breanne Laird DO CHEMISTRY ORDERABLES Performing Organization Address City/[facility]/ZIP [place] [address] (ABNORMAL) Comprehensive metabolic panel (non-fasting) (03/27/2016 5:08 PM EDT) athologist [facility] Glucose Lvl 128 65 - 199 [facility] mg/dL [facility] Comment: Diabetes: >=200 mg/dL plus symp toms BUN 19 (H) 8 - 18 mg/dL [facility] Creatinine 1.01 0.70 - 1.20 mg/dL [facility] Comment: Please note that the pediatric reference intervals supplied above were not validated at [facility]. Results from pediatri c patients should be interpreted in conjunction to the patient's age, height and muscle mass. Sodium 139 135 - 145 mmol/L [facility] Potassium 3.9 3.5 - 5.0 mmol/L [facility] Comment: Please note: ??Patients with WBC >100,00 0 may have falsely elevated Potassium levels. ??For accurate Potassium quantif ication in these patients send serum separator tube (gold top) for subsequent determinations. ??Contact the Clinical Chemistry Laboratory if there are any qu estions. Chloride 97 (L) 98 - 107 mmol/L [facility] CO2 29 22 - 31 mmol/L [facility] Anion Gap 13 5 - 15 mmol/L [facility] Calcium 9.0 8.5 - 10.5 mg/dL [facility] Total Protein 6.8 6.1 - 8.0 gm/dL [facility] Albumin 4.5 3.2 - 5.2 gm/dL [facility] AST 13 0 - 30 unit/L [facility] ALT 24 0 - 30 unit/L [facility] Alk Phos 42 40 - 104 unit/L [facility] Total Bilirubin 0.5 0.2 - 1.3 mg/dL [facility] Bili, Direct 0.1 0.0 - 0.3 mg/dL [facility] Estimated GFR 54 (L) >=60 [facility] Comment: This estimated GFR (eGFR) value was calc ulated using the MDRD equation which has been validated on patients between t he ages of 18 and 70. The MDRD should not be used to assess kidney function in patients < 18 years of age or in patients with extremes of body mass, or in patients with acute kidney failure. This value should be multiplied by 1.2 f or patients. For further information please copy and past e the following links into your internet browser. [email or web address] Specimen Anatomical Collection Method Collection Time Receive d Time (Source) Location / / Volume Laterality Blood specimen 03/27/2016 5:08 PM 016 5:17 (specimen) EDT PM EDT Resulting Agency Comment Spec In Lab Breanne Laird DO CHEMISTRY ORDERABLES Performing Organization Address City/State/Z[place] [address] Sedimentation rate (03/27/2016 11:14 AM EDT) athologist Signature Sed Rate 9 0 - 20 [facility]/hr [facility] Specimen Anatomical Collection Method Collection Time Receive d Time (Source) Location / / Volume Laterality Blood specimen 03/27/2016 11:14 6 (specimen) AM EDT 11:27 AM EDT Resulting Agency Comment Spec In Lab Fahad Field MD HEMATOLOGY ORDERABLES Performing Organization Address City/[facility]/ZIP Code Phon e Number [address] High Sensitivity CRP (03/27/2016 11:14 AM EDT) P athologist Signature CRP High Sens 2.5 mg/L [facility] Comment: Interpretations: 1) For accurate cardiac risk assessment, the average of 2 values >2 weeks apart should be obtained (ref 1&2). A value >1 0 mg/L indicates an inflammatory condition, concentrations >10 mg/L shoul d not be used for cardiac risk assessment. ?<1.0 mg/L: low risk ?1.0 - 3.0 mg/L: moderate risk ?>3.0 mg/L: high risk groups for fu ture cardiovascular events 2) The general reference range of appare ntly healthy individuals using this test is <5.0 mg/L (derived from the test package insert) References: 1. Stevie VALENTINE et. al. ??AHA/CDC Scientif ic Statement: Markers of Inflammation and Cardiovascular Disease. ??Circulatio n 2003; 107:499-511 2. Dereje PM. ??Clinical applications of C-reactive protein for cardiovascular disease detection and prevention. ??Circ ulation 2003; 107:363-369 Specimen Anatomical Collection Method Collection Time Receive d Time (Source) Location / / Volume Laterality Blood specimen 03/27/2016 11:14 6 (specimen) AM EDT 11:27 AM EDT Resulting Agency Comment Spec In Lab Fahad Field MD CHEMISTRY ORDERABLES Performing Organization Address City/[facility]/ZIP Code Phon e Number [address] documented in this encounter Visit Diagnoses Diagnosis GCA (giant cell arteritis) Giant cell arteritis Chronic fatigue Other malaise and fatigue documented in this encounter Care Teams Cath Laboratory Technician Relationship Specialty Start Date End Date Zoey Lucas MD PCP - General 09/05/[address] [place] [address] documented as of this encounter
--- OUTSIDE RECORDS SUMMARY | 2022-07-27 00:18 | XMS_ITS | Encounter Summary ---
:1940 Author Organization [facility] Address [facility] [place] [address] Care Team Providers Name Role Phone Zoey Lucas MD Primary Care Provider Encounter Details Date Type Department Care Team Description 12/05/2016 Hospital Encounter [facility] Yuki Tillman MD cataract, bilateral [facility] [address] [id number] [phone] Social History Tobacco Use Types Packs/Day Years [...] Sign Reading Time Taken Comments Blood Pressure 150/75 12/05/2016 3:13 PM EST Pulse 83 12/05/2016 3:13 PM EST Temperature 36.2 ??C (97.2 ??F) 12/05/2016 3:13 PM EST Respiratory Rate 18 12/05/2016 3:13 PM EST Oxygen Saturation 99% 12/05/2016 3:13 PM EST Inhaled Oxygen Concentration - - Weight 72.6 kg (160 lb) 12/05/2016 1:43 PM EST Height 160 cm (5' 3) 12/05/2016 1:43 PM EST Body Mass Index 28.34 12/05/2016 1:43 PM EST documented in this encounter Discharge Instructions Discharge InstructionsParis Milligan RN - 12/05/2016 1:43 PM EST Instructions following CATARACT surgery Dr. Rodríguez Section of ophthalmology [facility] [phone] - Wear either the eye shield or glasses of any kind 24 hours per day for the first week following surgery. - Your appointment tomorrow with Dr. Rodríguez will be at the [facility] in the main building at [facility]. Bring your Eye Kit to all postoperative visits. - Call you Primary Care Doctor or the Emergency Room for any non eye related medical issues. - It is normal to have a scratchy sensation or mild pain in your eye, but if you have any severe eyepain, vomiting or bleeding call [phone] and ask to speak to the ophthalmology doctor stoner hand. - Your eye will be red tomorrow - this is normal. -Do not bend so that your head goes below your heart for 2 weeks after surgery. -No heavy lifting - nothing greater than 5 pounds for 2 weeks after your surgery. - If you are on glaucoma drops, it is very important that you keep taking these as usual. - Start your post-op drops in 2 hours. Your post-op drops to take while awake are prednisolone acetate 1% (pink), Vigamox (pedraza) and Ketorolac (osorio) each four times daily. - Be sure to wait 5 minutes between each drop so that they don't dilute each other. - The prednisolone acetate drops (pink) need to be shaken 30 times. - Some of the drops, especially the Ketorolac (osorio), may sting. It can be helpful to refrigerate them to make them more comfortable. - After the first week drop instructions: Vigamox - stop using. Prednisolone - begin tapering your drops to 3x/day for 1 week, then 2x/day for 1 week, then 1x/day for 1 week, then STOP using. Ketoralac - 4x/day until they are gone. Moderate Sedation You may have received medication before and/or during your procedure, which affects your judgement and reaction time. Do not drive, operate machinery, drink alcoholic beverages, or make any legal decisions for 24 hours. Be careful on stairs, as you may be unsteady on your feet. You may eat a regular diet as tolerated. Do not smoke if you are alone. IV site -- slight redness, or tenderness is normal, you can use a warm compress. If tenderness and redness increases or foul drainage occurs, please contact your M. D. Questions or problems: M-F 8 am - 5pm call ophthalmology : [phone] After 5pm or on a weekend or holiday: call the [facility] gluing machine operator and ask for the ophthalmology physician stoner hand.Instructions following CATARACT surgery Dr. Rodríguez Section of ophthalmology [facility] [phone] - Wear either the eye shield or glasses of any kind 24 hours per day for the first week following surgery. - Your appointment tomorrow with Dr. Rodríguez will be at the [facility] in the main building at [facility]. Bring your Eye Kit to all postoperative visits. - Call you Primary Care Doctor or the Emergency Room for any non eye related medical issues. - It is normal to have a scratchy sensation or mild pain in your eye, but if you have any severe eyepain, vomiting or bleeding call [phone] and ask to speak to the ophthalmology doctor stoner hand. - Your eye will be red tomorrow - this is normal. -Do not bend so that your head goes below your heart for 2 weeks after surgery. -No heavy lifting - nothing greater than 5 pounds for 2 weeks after your surgery. - If you are on glaucoma drops, it is very important that you keep taking these as usual. - Start your post-op drops in 2 hours. Your post-op drops to take while awake are prednisolone acetate 1% (pink), Vigamox (pedraza) and Ketorolac (osorio) each four times daily. - Be sure to wait 5 minutes between each drop so that they don't dilute each other. - The prednisolone acetate drops (pink) need to be shaken 30 times. - Some of the drops, especially the Ketorolac (osorio), may sting. It can be helpful to refrigerate them to make them more comfortable. - After the first week drop instructions: Vigamox - stop using. Prednisolone - begin tapering your drops to 3x/day for 1 week, then 2x/day for 1 week, then 1x/day for 1 week, then STOP using. Ketoralac - 4x/day until they are gone. Moderate Sedation You may have received medication before and/or during your procedure, which affects your judgement and reaction time. Do not drive, operate machinery, drink alcoholic beverages, or make any legal decisions for 24 hours. Be careful on stairs, as you may be unsteady on your feet. You may eat a regular diet as tolerated. Do not smoke if you are alone. IV site -- slight redness, or tenderness is normal, you can use a warm compress. If tenderness and redness increases or foul drainage occurs, please contact your M. D. Questions or problems: M-F 8 am - 5pm call ophthalmology : [phone] After 5pm or on a weekend or holiday: call the [facility] gluing machine operator and ask for the ophthalmology physician stoner hand. documented in this encounter Medications at Time of Discharge Medication Sig Dispensed Refills Start Date End Date cholecalciferol, Vitamin D3, 2,000 Units 0 2012 25 mcg (1,000 unit) Capsule daily. aspirin 81 mg Tablet, Take 81 mg by 0 Chewable mouth daily. escitalopram oxalate Take 10 mg by 0 (LEXAPRO) 10 mg Tablet mouth daily. CALCIUM CARBONATE/VITAMIN D3 Take 1,200 mg by 0 (VITAMIN D-3 ORAL) mouth daily. hydrocortisone 2.5 % cream 1 Appl(s), Top, 0 12/12 Twice daily triamcinolone (KENALOG) 0.1 Apply topically 0 % ointment as needed. amLODIPine (NORVASC) 5 mg Take 2 tablets by 30 tablet 11 11/19/2021 Tablet mouth daily. hydrochlorothiazide 25 MG = 1 0 12/26/201011/19 (HYDRODIURIL) 25 mg tablet Tablet(s), PO, QAM predniSONE (DELTASONE) 1 mg Take 5 mg by 0 02/13/2017 Tablet mouth daily. Reported on 02/13/2017 CALCIUM CARBONATE (CALTRATE Take 1,200 mg by 0 02/13/2017 600 ORAL) mouth. Reported on 02/13/2017 fexofenadine (RENAY) 180 180 MG = 1 0 1 07/12/2021 mg tablet Tablet(s), PO, QAM cetirizine (ZYRTEC) 10 mg 10 MG = 1 0 12/26/2010 07/12/2021 tablet Tablet(s), PO, QHS documented as of this encounter Progress Notes Paris Milligan RN - 12/05/2016 2:45 PM EST Pt instructed to squeeze RN's hand if having pain, need to cough, etc. Pt instructed not to talk during procedure. Pain assessment unable to verbalize (non-verbal) but will indicate pain with hand squeeze, ask surgeon to pause and verbally assess pt. Paris Milligan RN - 12/05/2016 2:43 PM EST Date/Procedure: Meds Given Comments 12/05/16 Right cataract Midazolam 3 mg IV, Fentanyl 100 mcg IV, Diamox [address] Cuenca states pt squeezing eye throughout case. Pt VSS, hand relaxed, shallow respirations noted. Paris Milligan RN - 12/05/2016 2:08 PM EST Discharge instructions and medications reviewed with patient and escort. All questions answered and written copy sent home with patient. documented in this encounter H&P Notes Primo Rodríguez MD - 12/05/2016 2:20 PM EST History and physical for PCP reviewed, no interval changes. Risks, benefits and alternatives of surgery revisited. Patient is keen to proceed with CEIOL OD. documented in this encounter Miscellaneous Notes Op Note - Primo Rodríguez MD - 12/05/2016 3:12 PM EST [facility] Operative Note Patient Name: Zeny Joe : [id number] MR#: [id number] Case Date: 12/05/2016 Surgeon: Surgeon(s) and Role: * Primo Rodríguez MD - Primary Preoperative diagnosis: Cataract Postoperative diagnosis: Cataract Procedure(s) (LRB): CATARACT EXTRACTION, EXTRACAPSULAR, WITH LENS INSERTION, COMPLEX (WRVU 11.08) (Right) Use of iris hooks for poor dilation. Patient: Zeny Joe Surgeon: Primo Rodríguez MD Diagnosis: Cataract, Right eye, nuclear sclerotic cataract Poor dilator Procedure: Cataract extraction/lens implantation, Right eye Complications: None Blood loss: Minimal Anesthesia type: IV conscious sedation with topical block Implant: [id number] lens, 19.0 D power, placed in the capsular bag Procedure in detail: After the risks, benefits, and alternatives of the planned procedure had been discussed with the patient and the informed consent signed, the patient was taken back to the operating room suite. There, the patient was prepped and draped in the standard sterile ophthalmic fashion. Alid speculum was introduced into the operative eye. A paracentesis wound was created 60 degrees to the left of the planned temporal incision. Lidocaine was injected intracamerally. Viscoat viscoelasticwas injected intracamerally. Four additional paracentesis were created and iris hooks inserted to hold the iris back. The main temporal incision was then created using a 2.4 mm keratome. The anterior ca psulotomy was then created using the combination of a cystotome and Utrata forceps. Hydrodissection was performed using a straight hydrodissection cannula. The nucleus was then divided in a groove and split technique. The nuclear fragments were then removed using the phacoemulsification handpiece. The remaining cortical and epinuclear material was then removed using the irrigation/aspiration handpiece. The capsular bag was filled with Provisc viscoelastic. The SN60WF lens was then injected into the capsular bag using a lens injection system. The iris hooks were removed and the remaining viscoelastic was then removed from the eye using the irrigation/aspiration handpiece. A 10.0 nylon suture was placed at the temporal wound. The wounds were then hydrated. With the wounds found not to be leaking, all viscoelastic removed from the anterior segment, and the lens centered in the capsular bag, the surg nery was deemed concluded. All instrumentation was removed from the operative eye. The patient was then escorted to the post-anesthesia care unit having tolerated the procedure well without additional issues. I performed this surgery by myself without the assistance of a resident. documented in this encounter Plan of Treatment Not on filedocumented as of this encounter Procedures Procedure Name Priority Date/Time Associated Diagnosis Comme nts CATARACT EXTRACTION, Routine 12/05/2016 2:44 PM EST Age-relate d nuclear EXTRACAPSULAR, W/ LENS cataract, bilatera l INSERTION, COMPLEX CATARACT EXTRACTION, 12/05/2016 2:32 PM EST Age-relate d nuclear EXTRACAPSULAR, WITH cataract, bilateral LENS INSERTION, COMPLEX (WRVU 11.08) documented in this encounter Visit Diagnoses Diagnosis Age-related nuclear cataract, bilateral Senile nuclear sclerosis documented in this encounter Administered Medications Inactive Administered Medications - up to 3 most recent administrations Medication Order MAR Action Action Date Dose Rate Site acetaminophen (TYLENOL) tablet 650 Given 12/05/2016 3:28 PM EST 650 mg mg 650 mg, Oral, ONCE PRN, 1 dose, Starting on Sat12/05/16 at 1522, Until Sat12/05/16 at 1528, Pain, Maximum dose of acetaminophen is 4000 mg from all sources in 24 hours., Recovery (Recovery-Hospital Unit), Routine acetaZOLAMIDE (DIAMOX) injection Given 12/05/2016 3:26 PM EST 500 mg 500 mg, Intravenous, ONCE, 1 dose, On Sat12/05/16 at 1545, Day of Surgery (Day of Procedure), Routine cyclopentolate (CYCLODRYL) 1 % ophthalmic Given 12/05/2016 2:09 PM EST 1 drop solution 1 drop 1 drop, Right Eye, EVERY 5 MIN, 3 doses, First dose on Sat12/05/16 at 1400, Last dose on Sat12/05/16 at 1410, 1 drop to the operative eye every 5 minutes times 3. Start day of surgery, Day of Surgery (Day of Procedure), Routine Given 12/05/2016 2:00 PM EST 1 drop Given 12/05/2016 1:53 PM EST 1 drop ketorolac tromethamine (ACULAR) 0.5 % Given 12/05/2016 1:[address] 1 drop ophthalmic solution 1 drop 1 drop, Right Eye, ONCE, 1 dose, On Sat12/05/16 at 1400, 1 drop to the operative eye once, start on day of surgery, Day of Surgery (Day of Procedure), Routine lactated ringers infusion 1,000 New Bag 12/05/2016 2:08 PM EST 1,000 mLs 100 mL/hr mL 1,000 mL, at 100 mL/hr, Intravenous, CONTINUOUS, Starting on Sat12/05/16 at 1400, Until Sat12/05/16 at 1540, Day of Surgery (Day of Procedure) moxifloxacin (VIGAMOX) 0.5 % ophthalmic Given 12/05/2016 2:09 PM EST 1 drop solution 1 drop 1 drop, Right Eye, EVERY 5 MIN, 3 doses, First dose on Sat12/05/16 at 1400, Last dose on Sat12/05/16 at 1410, 1 drop to the operative eye every 5 minutes times 3. Start on the day of surgery., Day of Surgery (Day of Procedure), Routine Given 12/05/2016 2:00 PM EST 1 drop Given 12/05/2016 1:56 PM EST 1 drop PHENYLephrine (MYDFRIN) 2.5 % ophthalmic Given 12/05/2016 2:08 P M EST 1 drop solution 1 drop 1 drop, Right Eye, EVERY 5 MIN, 3 doses, First dose on Sat12/05/16 at 1400, Last dose on Sat12/05/16 at 1410, 1 drop to the operative eye every 5 minutes times 3. Start on the day of surgery., Day of Surgery (Day of Procedure), Routine Given 12/05/2016 2:00 PM EST 1 drop Given 12/05/2016 1:53 PM EST 1 drop prednisoLONE acetate (PRED FORTE) 1 % Given 12/05/2016 1:[address] 1 drop ophthalmic suspension 1 drop 1 drop, Right Eye, ONCE, 1 dose, On Sat12/05/16 at 1400, 1 drop to the operative eye once, start on day of surgery, Day of Surgery (Day of Procedure), Routine documented in this encounter Active and Recently Administered Medications Times are shown in EST. Scheduled Medication Order 12/03/2016 12/04/2016 12/05/2016 acetaZOLAMIDE (DIAMOX) injection (COMPLETED) 1526 (Given - Provider: Paris Milligan RN) 500 mg, Intravenous, ONCE, 1 dose, Sat at 1545, Day of Surgery (Day of Procedure), Routine cyclopentolate (CYCLODRYL) 1 % ophthalmic solution 1 drop (COMPL ETED) 1353 (Given - Provider: Paris Milligan RN)1400 (Given - Provider: Paris Milligan RN)1409 (Given - Provider: Paris Milligan RN) 1 drop, Right Eye, EVERY 5 MIN, 3 doses, First dose on Sat12/05/16 at 1400, Last dose on Sat12/05/16 at 1410, 1 drop to the operative eye every 5 minutes times 3. Start day of surgery, Day of Surgery (Day of Procedure), Routine ketorolac tromethamine (ACULAR) 0.5 % ophthalmic solution 1 drop (COMPLETED) 1356 (Given - Provider: Paris Milligan RN) 1 drop, Right Eye, ONCE, 1 dose, 11/15 at 1400, 1 drop to the operative eye once, start on day of surgery, Day of Surgery (Day of Procedure), Routine moxifloxacin (VIGAMOX) 0.5 % ophthalmic solution 1 drop (COMPLET ED) 1356 (Given - Provider: Paris Milligan RN)1400 (Given - Provider: Paris Milligan RN)1409 (Given - Provider: Paris Milligan RN) 1 drop, Right Eye, EVERY 5 MIN, 3 doses, First dose on Sat12/05/16 at 1400, Last dose on Sat12/05/16 at 1410, 1 drop to the operative eye every 5 minutes times 3. Start on the day of surgery., Day of Surgery (Day of Procedure), Routine PHENYLephrine (MYDFRIN) 2.5 % ophthalmic solution 1 drop (COMPLE EMMANUELLE) 1353 (Given - Provider: Paris Milligan RN)1400 (Given - Provider: Paris Milligan RN)1408 (Given - Provider: Paris Milligan RN) 1 drop, Right Eye, EVERY 5 MIN, 3 doses, First dose on Sat12/05/16 at 1400, Last dose on Sat12/05/16 at 1410, 1 drop to the operative eye every 5 minutes times 3. Start on the day of surgery., Day of Surgery (Day of Procedure), Routine prednisoLONE acetate (PRED FORTE) 1 % ophthalmic suspension 1 drop (COMPLETED) 1356 (Given - Provider: Jennifer Newman N) 1 drop, Right Eye, ONCE, 1 dose, 11/15 at 1400, 1 drop to the operative eye once, start on day of surgery, Day of Surgery (Day of Procedure), Routine sodium chloride 0.9 % flush 5 mL 1400 (Due) 5 mL, Intravenous, EVERY 12 HOURS, First dose on Sat12/05/16 at 1400, Until Discontinued, Day of Surgery (Day of Procedure), Routine Continuous Medication Order 12/03/2016 12/04/2016 12/05/2016 lactated ringers infusion 1,000 mL 1400 (Due) 1,000 mL, at 100 mL/hr, Intravenous, CON TINUOUS, Starting Sat12/05/16 at 1400, Until Sat12/05/16 at 1540, Day of Surgery (Day of Procedure) lactated ringers infusion 1,000 mL 1408 (New Bag - Provider: Paris Milligan RN)1526 (Stopped - Provider: Paris Milligan RN) 1,000 mL, at 100 mL/hr, Intravenous, CON TINUOUS, Starting Sat12/05/16 at 1400, Until Sat12/05/16 at 1540, Day of Surgery (Day of Procedure) PRN Medication Order 12/03/2016 12/04/2016 12/05/2016 acetaminophen (TYLENOL) tablet 650 mg (COMPLETED) 1528 (Given - Provider: Paris Milligan RN) 650 mg, Oral, ONCE PRN, 1 dose, Starting Sat12/05/16 at 1522, Until Discontinued, Pain, Maximum dose of acetaminophen is 4000 mg from all sources in 24 hours., Recovery (Recovery-Hospital Unit), Routine atropine injection 0.4 mg 0.4 mg, Intravenous, EVERY 5 MIN PRN, 2 doses, Starting Sat12/05/16 at 1342, Until Sat12/05/16 at 1540, for heart rate less than 40 beats per minute, For 2 doses, Intra-Operative (Intra-Procedure), Routine fentaNYL 50 mcg/mL multi-dose injection 1435 (Given - Provider: Paris Milligan RN)1440 (Given - Provider: Paris Milligan RN)1448 (Given - Provider: Paris Milligan RN)1500 (Given - Provider: Paris Milligan RN) 25 mcg, Intravenous, EVERY 5 MIN PRN, St arting Sat12/05/16 at 1342, Until Sat12/05/16 at 1540, Pain, For use in the Operating Room (OR), Outpatient Surgical Center (OSXC)C, or Special Procedure Room onl y under direct provider supervision and verbal order. Hold for respiratory rate less than 8 breaths per minute. (maximum dose 100 mcg), Intra-Operative (Intra- Procedure), Routine labetalol (NORMODYNE,TRANDATE) injection 2.5 mg 2.5 mg, Intravenous, EVERY 5 MIN PRN, 4 doses, Starting Sat12/05/16 at 1342, Until Sat12/05/16 at 1540, High Blood Pressure, systolic blood pressure greater than 180 mmHg, Hold for heart rate less than 55 beats per minute. Call MD if ineffect jayme after 4 doses., Intra-Operative (Intra-Procedure), Routine lidocaine (XYLOCAINE) 10 mg/mL (1 %) injection 3 mg 3 mg (0.3 mL), Subcutaneous, ONCE PRN, 1 dose, Starting Sat12/05/16 at 1342, Until Sat12/05/16 at 1540, for discomfort with PIV insertion, Day of Surgery (Day of Procedure), Routine lidocaine (XYLOCAINE) 10 mg/mL (1 %) injection 3 mg 3 mg (0.3 mL), Subcutaneous, ONCE PRN, 1 dose, Starting Sat12/05/16 at 1342, Until Sat12/05/16 at 1540, for discomfort with PIV insertion, Day of Surgery (Day of Procedure), Routine midazolam (PF) (VERSED) 1 mg/mL multi-dose injection 0.25-1 mg 1435 (Given - Provider: Paris Milligan RN)1440 (Given - Provider: Paris Milligan RN)1449 (Given - Provider: Paris Milligan RN)1500 (Given - Provider: Paris Milligan RN) 0.25-1 mg, Intravenous, EVERY 5 MIN PRN, Starting Sat12/05/16 at 1342, Until Sat12/05/16 at 1540, Anxiety, For use in the Operating Room (OR), Outpatient Surgery Center (OSC) or Special Procedure room o nly with direct provider supervision and verbal order. Hold for delirium/agitation. (Maximum dose 4 mg), Intra-Operative (Intra-Procedure), Routine naloxone (NARCAN) injection 0.1 mg 0.1 mg, Intravenous, EVERY 2 MIN PRN, St arting Sat12/05/16 at 1342, Until Sat12/05/16 at 1540, Opioid Reversal, For opiate induced oversedation or respiratory depression. (maximum dose of 0.8 mg), Intra-Operative (Intra-Procedure), Routine sodium chloride 0.9 % flush 5-20 mL 5-20 mL, Intravenous, EVERY 1 MIN PRN, S tarting Sat12/05/16 at 1342, Until Sat12/05/16 at 1540, flush, Flush pertains to all indwelling lines. Flush per protocol found in the job aid using the link prov ided on this medication record., Day of Surgery (Day of Procedur e), Routine sodium chloride 0.9 % flush 5-20 mL 5-20 mL, Intravenous, EVERY 1 MIN PRN, S tarting Sat12/05/16 at 1342, Until 12/05/16 at 1540, flush, Flush pertains to all indwelling lines. Flush per protocol found in the job aid using the link prov ided on this medication record., Day of Surgery (Day of Procedur e), Routine documented in this encounter Care Teams Warp Placer Relationship Specialty Start Date End Date Zoey Lucas MD PCP - General 09/05/[address] [place] [address] documented as of this encounter
--- OUTSIDE RECORDS SUMMARY | 2022-07-27 00:18 | XMS_ITS | Encounter Summary ---
:1940 Author Organization [facility] [place] [address] Care Team Providers Name Role Phone Zoey Lucas MD Primary Care Provider Encounter Details Date Type Department Care Team Description 01/25/2016 Laboratory Appointment Lab 3L Yuki Gonzales GCA (giant cell [facility] arteritis) [place] [id number] Social History Tobacco Use Types Packs/Day Years [...] Procedure Name Priority Date/Time Associated Comments Diagnosis SEDIMENTATION RATE Routine 01/25/2016 8:41 AM GCA (giant cell Results for this EDT arteritis) procedure are i n the results section. CRP, CARDIAC RISK (HS Routine 01/25/2016 8:41 AM GCA (giant ce ll Results for this CRP) EDT arteritis) procedure are i n the results section. documented in this encounter Results Sedimentation rate (01/25/2016 8:41 AM EDT) P athologist Signature Sed Rate 9 0 - 20 [facility] mm/hr [facility] Specimen Anatomical Collection Method Collection Time Receive d Time (Source) Location / / Volume Laterality Blood specimen 01/25/2016 8:41 AM 016 8:44 (specimen) EDT AM EDT Resulting Agency Comment Spec In Lab Fahad Field MD HEMATOLOGY ORDERABLES Performing Organization Address City/State/[place] [address] High Sensitivity CRP (01/25/2016 8:41 AM EDT) P athologist Signature CRP High Sens 0.6 mg/L [facility] Comment: Interpretations: 1) For accurate [...] Location / / Volume Laterality Blood specimen 01/25/2016 8:41 AM 016 8:44 (specimen) EDT AM EDT Resulting Agency Comment Spec In Lab Fahad Field MD CHEMISTRY ORDERABLES Performing Organization Address City/State/[place] [address] documented in this encounter Visit Diagnoses Diagnosis GCA (giant cell arteritis) Giant cell arteritis documented in this encounter Care Teams Welfare Supervisor Relationship Specialty Start Date End Date Zoey Lucas MD PCP - General 09/05/[address] [place] [address] documented as of this encounter
--- OUTSIDE RECORDS SUMMARY | 2022-07-27 00:18 | XMS_ITS | Encounter Summary ---
:1940 Author Organization [facility] Address [address] [place] [address] Care Team Providers Name Role Phone Zoey Lucas MD Primary Care Provider Encounter Details Date Type Department Care Team Description 03/20/2019 Procedure visit Ophthalmology at [facility] C [place], Right posterior [facility] MD [address] [place] [address] CENTER [phone] [place] [address] Social History Tobacco Use Types Packs/Day Years [...] Name Priority Date/Time Associated Diagnosis Comme nts CAPSULOTOMY-YAG Routine 03/20/2019 9:59 AM Right posterior Res ults for this LASER - OD - RIGHT EDT capsular opacification procedure are in EYE the results section. documented in this encounter Results Capsulotomy - Yag Laser - OD - Right Eye (03/20/2019 9:59 AM EDT) Anatomical Region Laterality Modality Other Specimen (Source) Anatomical Location Collection Method / Collectio n Time Received Time / Laterality Volume Narrative 03/20/2019 9:59 AM EDT Post-op The patient tolerated the procedure well . There were no complications. The patient received written and verbal post procedure care education. Notes The patient's eye was dilated and topica l Proparacaine was placed in the eye. The patient was positioned at the Y AG laser. ??The opacified capsule was in the visual axis. In the area, a s eries of 18 laser pulses, each approximately 2.4 millijoules in power, was used to create an opening in the opacified capsule. Primo Rodríguez MD OPHTHALMOLOGY SERVICES ORD ERABLES documented in this encounter Visit Diagnoses Diagnosis Right posterior capsular opacification After-cataract, unspecified documented in this encounter Care Teams Guide Foreign Tour Relationship Specialty Start Date End Date Zoey Lucas MD PCP - General 09/05/[address] [place] [address] documented as of this encounter
--- OUTSIDE RECORDS SUMMARY | 2022-07-27 00:18 | XMS_ITS | Encounter Summary ---
:1940 Author Organization [facility] [place] [address] Care Team Providers Name Role Phone Zoey Lucas MD Primary Care Provider Encounter Details Date Type Department Care Team Description 01/22/2018 Hospital Encounter [place] [facility] Jeri Lopes Encounter for [address] Corrina MD monitoring [place], [place] [facility] tocilizumab [facility] [id number] [place] [phone] [place] [address] Social History Tobacco Use Types Packs/Day Years [...] (HYDRODIURIL) 25 mg tablet Tablet(s), PO, QAM ERGOCALCIFEROL, VITAMIN D2, Take 2,000 Units 0 07/12/2021 (VITAMIN D ORAL) by mouth daily. fexofenadine (RENAY) 180 180 MG = 1 0 1 07/12/2021 mg tablet Tablet(s), PO, QAM cetirizine (ZYRTEC) 10 mg 10 MG = 1 0 12/26/2010 07/12/2021 tablet Tablet(s), PO, QHS documented as of this encounter Plan of Treatment Not on filedocumented as of this encounter Procedures Procedure Name Priority Date/Time Associated Diagnosis Comme nts XR HANDS MIN 3 Routine 01/22/2018 12:55 PM Encounter for Resul ts for this VIEWS BILAT EDT monitoring procedure are i n tocilizumab therapy the resu lts section. documented in this encounter Results XR Hands Min 3 views Bilat (01/22/2018 12:55 PM EDT) Anatomical Region Laterality Modality Hand Bilateral Digital Radiography Specimen (Source) Anatomical Location Collection Method / Collectio n Time Received Time / Laterality Volume Impressions 01/22/2018 1:16 PM EDT FINDINGS/IMPRESSION: There is no acute fracture, no dislocati on. Mild narrowing of the distal interphalan geal joints. Marginal osteophytosis of the bilateral second and the third dista l interphalangeal joints. Very mild ulnar subluxation of the left second distal interphalangeal joint. Soft tissue structures are unremarkable. Narrative 01/22/2018 1:16 PM EDT EXAMINATION: XR HANDS MIN 3 VIEWS BILAT CLINICAL HISTORY: inflammatory hand pain TECHNIQUE: Frontal, oblique and lateral radiographs of the bilateral hands COMPARISON: None Procedure Note Anita Green MD - 01/22/2018 EXAMINATION: XR HANDS MIN 3 VIEWS BILAT CLINICAL HISTORY: inflammatory hand pain TECHNIQUE: Frontal, oblique and lateral radiographs of the bilateral hands COMPARISON: None IMPRESSION FINDINGS/IMPRESSION: There is no acute fracture, no dislocati on. Mild narrowing of the distal interphalan geal joints. Marginal osteophytosis of the bilateral second and the third dista l interphalangeal joints. Very mild ulnar subluxation of the left second distal interphalangeal joint. Soft tissue structures are unremarkable. Jeri Lopes MD IMG DX ORDERABLES documented in this encounter Visit Diagnoses Diagnosis Encounter for monitoring tocilizumab the rapy Encounter for therapeutic drug monitorin g documented in this encounter Care Teams Artist Mannequin Coloring Relationship Specialty Start Date End Date Zoey Lucas MD PCP - General 09/05/[address] [place] [address] documented as of this encounter
--- OUTSIDE RECORDS SUMMARY | 2022-07-27 00:18 | XMS_ITS | Encounter Summary ---
:1940 Author Organization [facility] [place] [address] Care Team Providers Name Role Phone Zoey Lucas MD Primary Care Provider Reason for Visit Reason Comments Post Op Encounter Details Date Type Department Care Team Description 01/10/2017 Office Visit Ophthalmology at [facility] Anabela Rodríguez, Pseudophakia of [facility] [place] [address] CENTER [phone] OPHTHALMOLOGY DEPT [place], [place] [address] Social History Tobacco Use Types [...] encounter Progress Notes Primo Rodríguez MD - 01/10/2017 11:00 AM EDT Doing well s/p PCIOL OD. Final Rx given. F/u 6 months for GCA eval. documented in this encounter Plan of Treatment Not on filedocumented as of this encounter Visit Diagnoses Diagnosis Pseudophakia of right eye Lens replaced by other means documented in this encounter Care Teams Barrel Straightener Relationship Specialty Start Date End Date Zoey Lucas MD PCP - General 09/05/[address] [place] [address] documented as of this encounter
--- OUTSIDE RECORDS SUMMARY | 2022-07-27 00:18 | XMS_ITS | Encounter Summary ---
:1940 Author Organization [facility] [place] [address] Care Team Providers Name Role Phone Rebecca Lucas MD Primary Care Provider Reason for Referral Physical Therapy (Routine) - Specialty Diagnoses / Procedures Referred By Contact Refer red To Contact Physical Therapy Diagnoses Chronic fatigue Cliff Kline MD [facility] [place] [address] Referral ID Status Reason Start Date Expiration Date Visits V isits Requested Authorized [id number] Evaluate and 03/28/2016 09/24/2016 12 12 Treat Encounter Details Date Type Department Care Team Description 03/27/2016 Office Visit Rheumatology at [facility] Cliff Kline MD Chronic fatigue [facility] [place] [address] [facility] [place], [place] [address] (Wo rk) Social History Tobacco [...] Sign Reading Time Taken Comments Blood Pressure 135/73 03/27/2016 3:11 PM EDT Pulse 94 03/27/2016 3:11 PM EDT Temperature 36.6 ??C (97.8 ??F) 03/27/2016 3:11 PM EDT Respiratory Rate - - Oxygen Saturation 98% 03/27/2016 3:11 PM EDT Inhaled Oxygen Concentration - - Weight 78.9 kg (174 lb) 03/27/2016 3:11 PM EDT Height 160 cm (5' 3) 03/27/2016 3:11 PM EDT Body Mass Index 30.82 03/27/2016 3:11 PM EDT documented in this encounter Progress Notes Breanne Laird DO - 03/30/2016 8:00 AM EDT ATTENDING ADDENDUM The patient's history was reviewed, and I interviewed and examined the patient with Dr. Kline. I agree with his summary, findings, and plan. Cliff Kline MD - 03/27/2016 3:22 PM EDT Rheumatology Outpatient Consultation Note Rheum history GCA biopsy proven with visual changes - pulsed IV steroids x 3 days 10/27/15 - prednisone taper starting 60mg daily 10/27/15 Interval: Zeny Joe is a 75 y.o. female with h/o HTN, depression who is here for f/u of biopsy proven GCA with visual changes. She has been on prednisone 10mg for 1 week. She has stable visual changes, no headaches, fevers, chills, scalp tenderness, or jaw claudication. She has no symptoms of PMRat this time. She is still having some decreased sleep, and increased appetite from the prednisone, but is no longer feeling agitated. She is having some increased cramping in her fingers and toes at the end of the day and some increased fatigue. She also has some increased fat pad around her supraclavicular region which was US by her PCP and was normal. Her chronic lower back pain has returned since she started gardening again, she previously did well with physical therapy for this. She remains on aspirin and PPI, but is off of bactrim. She was not started on bisphosphonates by herPCP as her DEXA scan was apparently normal. 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 Meds: reviewed All: beta blockers FHx: melanoma- mother MGMA: kidney Ca Father- cva ROS: No wt loss, no NS No CP No SOB No GI No Physical Examination: BP 135/73 Pulse 94 Temp 36.6 ??C (97.8 ??F) (Oral) Ht 160 cm (5' 3) Wt 78.9 kg (174 lb) SpO2 98% BMI 30.82 kg/m2 General: NAD, AAOx3 HEENT: NC/AT,non tender left jaw, no palpable cords, +temporal artery pulsations Skin: No rashes Neck: supple Cardiovascular: S1S2, 3/6 sys murmur at base Lungs: CTA b/l Abdomen: ND, NT Neuro: Grossly intact Laboratory Data: Last 3 wbc, hgb, hct plt Recent Labs 10/27/15 0356 10/26/15 0629 10/25/15 0443 WBC 10.8* 12.3* 9.0 HGB 11.7 11.5 12.3 HCT 34.7 34.2 36.2 PLATELET 386* 380* 426* Last 3 Lytes Recent Labs 10/27/15 0356 10/26/15 0629 10/25/15 0443 NA 133* 133* 135 K 4.4 3.8 3.7 CL 93* 94* 94* CO2 25 26 24 BUN 30* 30* 25* CREATININE 1.14 1.07 1.03 Last 3 LFTs No results for input(s): AST, ALT, ALKPHOS, BILITOT, BILIDIR in the last 7068 hours. 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 female who presents today for follow up of GCA. Her symptoms currently seem consistent with prednisone side effects, and some fatigue from steroid withdrawal. She has no current symptoms of GCA or PMR and we would continue to taper her prednisone accordingly from 10mg of prednisone. #GCA -prednisone 10mg taper by 1mg every 4 weeks #CVA prophylaxis -ASA 81 daily #Osteoprotection - DEXA scan normal, prefers to only continue on Ca and Vit D Follow-up 3 months CC: REBECCA LUCAS MD Case seen and discussed with Dr Eitan KLINE MD 03/27/2016 documented in this encounter Plan of Treatment Scheduled Referrals Name Type Priority Associated Diagnoses Order S chedule Referral to Outpatient Referral Routine Chronic fatigue Order ed: Physical Therapy 03/28/2016 documented as of this encounter Results TSH (03/27/2016 5:08 PM EDT) athologist Signature TSH 1.33 0.27 - 4.20 [facility] mcIU/mL [facility] Specimen Anatomical Collection Method Collection Time Receive d Time (Source) Location / / Volume Laterality Blood specimen 03/27/2016 5:08 PM 016 5:17 (specimen) EDT PM EDT Resulting Agency Comment Spec In Lab Breanne Laird DO CHEMISTRY ORDERABLES Performing Organization Address City/State/[place] [address] (ABNORMAL) Comprehensive metabolic panel (non-fasting) (03/27/2016 5:08 PM EDT) athologist Signature Glucose Lvl 128 65 - 199 [facility] mg/dL [facility] Comment: Diabetes: >=200 mg/dL plus symp toms BUN 19 (H) 8 - 18 mg/dL [facility] Creatinine 1.01 0.70 - 1.20 mg/dL [facility] Comment: Please note that the pediatric reference intervals supplied above were not validated at [facility]. Results from pediatri c patients should be [...] Chloride 97 (L) 98 - 107 mmol/L [facility] CO2 29 22 - 31 mmol/L [facility] Anion Gap 13 5 - 15 mmol/L [facility] Calcium 9.0 8.5 - 10.5 mg/dL [facility] Total Protein 6.8 6.1 - 8.0 gm/dL [facility] Albumin 4.5 3.2 - 5.2 gm/dL [facility] AST 13 0 - 30 unit/L [facility] ALT 24 0 - 30 unit/L [facility] Alk Phos 42 40 - 104 unit/L [facility] Total Bilirubin 0.5 0.2 - 1.3 mg/dL [facility] Bili, Direct 0.1 0.0 - 0.3 mg/dL [facility] Estimated GFR 54 (L) >=60 [facility] Comment: This estimated GFR (eGFR) value [...] the following links into your internet browser. [email or web address] [email or web address] Specimen Anatomical Collection Method Collection Time Receive d Time (Source) Location / / Volume Laterality Blood specimen 03/27/2016 5:08 PM 016 5:17 (specimen) EDT PM EDT Resulting Agency Comment Spec In Lab Breanne Laird DO CHEMISTRY ORDERABLES Performing Organization Address City/State/ZIP Code Phon e Number [place] [phone] documented in this encounter Visit Diagnoses Diagnosis Chronic fatigue Other malaise and fatigue documented in this encounter Care Teams Ux Visual Designer Relationship Specialty Start Date End Date Rebecca Lucas MD PCP - General 09/05/[address] [place] [address] documented as of this encounter
--- OUTSIDE RECORDS SUMMARY | 2022-07-27 00:18 | XMS_ITS | Encounter Summary ---
:1940 Author Organization [facility] Address [facility] [place] [address] Care Team Providers Name Role Phone Zoey Lucas MD Primary Care Provider Reason for Visit Reason Onset Date Comments Eye Problem 03/05/2016 Patient with history of GCA OS with concerns for blood in lower corner of OD. Encounter Details Date Type Department Care Team Description 03/05/2016 Telephone Ophthalmology at [facility] Suresh Whitaker, Eye Problem (Patient [facility] Lizet carbajal [place] [address] [facility] with concerns for [phone] DR blood in lower OPHTHALMOLOGY corner of OD. ) DEPT. [place], [place] [address] Social History Tobacco Use Types [...] this encounter Miscellaneous Notes Telephone Encounter - Tanya Sharif COT - 03/05/2016 4:31 PM EDT Patient recalls falling and hit glasses on face/nose. She feels there may be some bruising and some redness in the corner of the eye. She has appointment with local OD tomorrow. Telephone Encounter - Tanya Sharif COT - 03/05/2016 2:35 PM EDT Primo Rodríguez MD at 01/25/2016 10:25 AM ? Author Type: Physician Status: Signed Transit Clerk: Primo Rodríguez MD (Physician) ?? Expand All Collapse All Zeny Joe is a 75 y.o. female with the following medical problems; Past Medical History Past Medical History?? Diagnosis?? Date? Allergic state? Asthma? Anxiety? Hypertension? Chronic kidney disease?? single kidney? Skin disease? 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 Giant cell arteritis?? 10/2015? 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 Assessment and Plan: Giant cell arteritis Noted vision loss in the left eye early October. My examination revealed PION in the left eye. She was admitted for IV steroids after developing some peripheral right eye changes. Elevated ESR, subsequent TA biopsy positive. On steroids per rheumatology. ?? On examination today, Zeny Joe normal vision in the right eye. Her left eye demonstrated reduced visual function, absent color vision, with a dense left relative afferent pupillary defect. Staticvisual ochoa show a temporal peripheral field defect, stable from prior ochoa. And a large nasal depressed field in the left, with a large stimulus used. ?? 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 Her labs from today are normal. She will follow her taper schedule per rheumatology. MRI brain/orbits revealed enlarged extraocular muscles - TSH ordered is mildly elevated. This is likely thyroid related. Her TSH and free T4 is normal. Given that she is asymptomatic, without any diplopia- no acute management. Findings discussed with Zeny Joe today and she has expressed understanding. She will call me if she has any further concerns. documented in this encounter Plan of Treatment Not on filedocumented as of this encounter Visit Diagnoses Not on filedocumented in this encounter Care Teams Scaffolding Helper Relationship Specialty Start Date End Date Zoey Lucas MD PCP - General 09/05/10 [facility] [address] [place] [address] documented as of this encounter
--- OUTSIDE RECORDS SUMMARY | 2022-07-27 00:18 | XMS_ITS | Encounter Summary ---
:1940 Author Organization [facility] [address] Care Team Providers Name Role Phone Zoey Lucas MD Primary Care Provider Reason for Visit Reason Onset Date Comments Post Op Post Op 12/06/2016 Encounter Details Date Type Department Care Team Description 12/06/2016 Office Visit [facility], Status post cataract extract ion and insertion of intraocular lens, right; [facility] MD [place] [address] CENTER [phone] OPHTHALMOLOGY DEPT [place], [place] [address] Social History Tobacco Use Types [...] encounter Progress Notes Primo Rodríguez MD - 12/06/2016 2:37 PM EST Assessment: No diagnosis found. Zeny Joe is POD#1 cataract surgery in her right eye. Doing well with a normal post operative appearance. IOP slightly high. Cosopt given to the patient in clinic with diamox 250 mg PO Plan: - Prednisolone acetate 1% 8 times a day in operative eye - Moxifloxicin qid in operative eye - Ketorolac qid in operative eye - Diamox 250 mg PO qday for 1 week - Post op precaution sheet reviewed and given to patient Follow up: - 1 week or as needed. Upon return IOP OU MR operative eye documented in this encounter Plan of Treatment Not on filedocumented as of this encounter Visit Diagnoses Diagnosis Status post cataract extraction and inse rtion of intraocular lens, right Pseudophakia Lens replaced by other means documented in this encounter Care Teams Computer Hardware Engineer Relationship Specialty Start Date End Date Zoey Lucas MD PCP - General 09/05/[address] [place] [address] documented as of this encounter
--- OUTSIDE RECORDS SUMMARY | 2022-07-27 00:18 | XMS_ITS | Encounter Summary ---
:1940 Author Organization [facility] [place] [address] Care Team Providers Name Role Phone Zoey Lucas MD Primary Care Provider Reason for Visit Reason Comments Temporal Arteritis DR EVANS PT WITH KNOW N GCA Encounter Details Date Type Department Care Team Description 01/05/2016 Office Visit Ophthalmology [facility] [place] Saldivar, Giant cell arteritis; [facility] [place] [address] [place] [address] OPHTHALMOLOGY DEPT. [place], [place] [address] Social History Tobacco Use Types [...] documented as of this encounter Progress Notes Deb Saldivar MD - 01/05/2016 11:25 AM EDT Assessment/Plan: Zeny Joe is a 75 y.o. female with the following ophthalmic issues: 1. 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 Her VF is more constricted superiorly than previous ochoa, but she has high false negative rate on this field - reliability unsure. Otherwise, her exam looks stable. She is scheduled for ESR today. I will report her VF findings to Dr. Evans. She is scheduled for reduction in prednisone tomorrow. I recommend holding off on taper until review by Dr. Mccormick next week. Called and discussed with Rheum attending, Dr. Morrison. documented in this encounter Miscellaneous Notes Addendum Note - Deb Saldivar MD - 01/05/2016 3:42 PM EDT Addended by: DEB SALDIVAR on: 01/05/2016 03:42 PM Modules accepted: Level of Service documented in this encounter Plan of Treatment Not on filedocumented as of this encounter Procedures Procedure Name Priority Date/Time Associated Diagnosis Comme nts AUTOMATED VISUAL Routine 01/05/2016 2:23 PM Giant cell arterit is Results for this FIELD - EXTENDED - EDT procedure are in OU- BOTH EYES the results section. documented in this encounter Results AUTOMATED VISUAL FIELD - EXTENDED - OU- BOTH EYES (01/05/2016 2:23 PM EDT) Anatomical Region Laterality Modality Other Specimen (Source) Anatomical Location Collection Method / Collectio n Time Received Time / Laterality Volume Narrative 01/05/2016 2:25 PM EDT Right Eye Threshold was 24-2. Notes HVF 24-2 Indication: GCA with subjective worsenin g VF Reliability: poor Result: OD peripheral defects, more dens e superiorly than previous ochoa OS dense diffuse loss Interpretation: PION OS>OD, with possibl e worsening OD compared with prior ochoa Deb Saldivar MD OPHTHALMOLOGY SERVICES ORDER ROLAND documented in this encounter Visit Diagnoses Diagnosis Giant cell arteritis Visual field defects Visual field defect, unspecified documented in this encounter Care Teams Weigher Operator Relationship Specialty Start Date End Date Zoey Lucas MD PCP - General 09/05/[address] [place] [address] documented as of this encounter
--- OUTSIDE RECORDS SUMMARY | 2022-07-27 00:18 | XMS_ITS | Encounter Summary ---
:1940 Author Organization [facility] [place] [address] Care Team Providers Name Role Phone Zoey Lucas MD Primary Care Provider Reason for Referral Physical Therapy (Routine) - Closed Specialty Diagnoses / Procedures Referred By Contact Refer red To Contact Diagnoses Lumbar back pain Cliff Kline MD Physical Therapy, [facility] INTER[facility] [address] [place], [place] [id number] [place] [id number] Referral ID Status Reason Start Date Expiration Date Visits V isits Requested Authorized [id number] Closed Evaluate and 02/10/2018 08/09/2018 12 12 Treat Encounter Details Date Type Department Care Team Description 02/10/2018 Procedure visit Rheumatology at [facility] Cliff Kline MD Lumbar back pain [facility] [place] [address] GENERAL INTERNAL [phone] [facility] JES[address]S [place] [address] Social History Tobacco Use Types Packs/Day [...] documented as of this encounter Progress Notes Cliff Kline MD - 02/10/2018 9:30 AM EDT Rheumatology Outpatient Consultation Note Rheum history GCA biopsy proven with visual changes - pulsed IV steroids x 3 days 10/27/15 - prednisone taper starting 60mg daily 10/27/15 - PJP prophylaxis stopped at pred ~01/2016 Interval: Zeny Joe is a 77 y.o. 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 She remains on prednisone 7mg, and has not tried to taper further since last visit. She has not had any recurrent symptoms of headaches, and she has not had any visual changes. She still occasionally experiences jaw pain, but less often than before. She is having some puffiness, but no other side effects from her prednisone, and continues on aspirin, calcium and vitamin D. We had discussed tocilizumab as an option previously, but she prefers to try tapering or staying on the current dose of prednisone. No other new complaints, or recurrence of headaches, no new PMR symptoms. Her hands remain a bit stiff in the morning, but with no swelling. She also has some lower back pain, which has been ongoing for many years and is progressively worsening. No weight loss, fevers, trauma or other red flags. 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 General: NAD, AAOx3 HEENT: NC/AT, no tenderness over jaw no palpable cords, +temporal artery pulsations Skin: No rashes Neck: supple Cardiovascular: S1S2, 3/6 sys murmur at base Lungs: CTA b/l Abdomen: ND, NT Neuro: Grossly intact Extremities: normal MSK exam, except tenderness of LS spine Laboratory Data: Last 3 wbc, hgb, hct plt Recent Labs 01/22/18 1244 WBC 7.8 HGB 12.6 HCT 38.9 PLATELET 245 Last 3 Lytes Recent Labs 01/22/18 1244 NA 141 K 4.0 CL 98 CO2 30 BUN 27* CREATININE 1.12 Last 3 LFTs Recent Labs 01/22/18 1244 AST 16 ALT 49* ALKPHOS 47 BILITOT 1.0 Last CRP, SEDRATE Recent Labs 01/22/18 1244 CRP 1.0 SEDRATE 12 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 female who presents today for follow up of GCA. With prednisone to 7mg, her symptoms remain improved, but she has been unable to taper further. We discussed possibly using tocilizumab in the future, though at only 7mg of prednisone, it's not clear this would be less harmful. Her prebiologic labs were normal, but at this point she would like to defer using tocilizumab. We performed ultrasound of her hands which revealed no inflammatory changes, suggesting her hand pain may be more related to use. For her back pain, we performed LS spine films, which demostrated scoliosis and degenerative diseasebut no fractures or signs of inflammatory changes. She knows to continue to monitor for sudden changes in vision, headaches and fevers and to call us immediately should that occur. At this low dose, she can likely stay on prednisone without ad terminal makeup operator ill effects, and we would not consider alternate therapy with tocilizumab unless she has recurrence requiring higher doses. #GCA -prednisone 7mg taper by 1mg every 4 weeks - cont ASA prophylaxis - cont to monitor for recurrence, may increase prednisone and call us if symptoms flare #CVA prophylaxis -ASA 81 daily #Osteoprotection - DEXA scan normal 2015 - continue on Ca and Vit D - Had reclast infusion 02/2017, now on only 7mg of prednisone F/u 6 months CC: MD Cliff Martinez MD 02/10/2018 Briseida Davalos DO - 02/10/2018 9:30 AM EDT I was the attending physician supervising the resident in the above care. For the purposes of billing, the resident provided the care. documented in this encounter Plan of Treatment Scheduled Referrals Name Type Priority Associated Diagnoses Order S chedule Referral to Outpatient Referral Routine Lumbar back pain Orde red: Physical Therapy 02/10/2018 documented as of this encounter Results XR Lumbar Spine 2 Or 3 Views (Generic) (02/10/2018 10:38 AM EDT) Anatomical Region Laterality Modality L-spine N/A Digital Radiography Specimen (Source) Anatomical Location Collection Method / Collectio n Time Received Time / Laterality Volume Impressions 02/10/2018 11:16 AM EDT Diffuse severe discogenic degenerative changes and posterior facet joint arthropathy producing a moderate to shane re lumbar scoliosis Narrative 02/10/2018 11:16 AM EDT EXAMINATION: XR LUMBAR SPINE 2 OR 3 VIEWS (GENERIC) CLINICAL HISTORY: mechanical back pain f or years TECHNIQUE: AP and lateral COMPARISON: None FINDINGS: There is an approximately 30 degrees LEF T convex lumbar scoliosis due to severe diffuse multilevel degenerative changes throughout the lumbar spine. The L1-2 and L2-3 disc spaces are particularly in volved. There are diffuse distended changes involving the posterior facet lana ints. Vertebral body height is normal. No spondylolisthesis or spondylolysis se en. Procedure Note Chanel Monique MD - 02/10/2018Formattin g of this note might be different from the original. EXAMINATION: XR LUMBAR SPINE 2 OR 3 VIEW S (GENERIC) CLINICAL HISTORY: mechanical back pain f or years TECHNIQUE: AP and lateral COMPARISON: None FINDINGS: There is an approximately 30 degrees LEF T convex lumbar scoliosis due to severe diffuse multilevel degenerative changes throughout the lumbar spine. The L1-2 and L2-3 disc spaces are particularly in volved. There are diffuse distended changes involving the posterior facet lana ints. Vertebral body height is normal. No spondylolisthesis or spondylolysis se en. IMPRESSION Diffuse severe discogenic degenerative c hanges and posterior facet joint arthropathy producing a moderate to shane re lumbar scoliosis Briseida Davalos DO IMG DX ORDERABLES documented in this encounter Visit Diagnoses Diagnosis Lumbar back pain Lumbago Lumbar back pain Lumbago documented in this encounter Care Teams Junior Legal Secretary Relationship Specialty Start Date End Date Zoey Lucas MD PCP - General 09/05/[address] [place] [address] documented as of this encounter
--- OUTSIDE RECORDS SUMMARY | 2022-07-27 00:18 | XMS_ITS | Encounter Summary ---
:1940 Author Organization [facility] Address [facility] [address] [place] [address] Care Team Providers Name Role Phone Zoey Lucas MD Primary Care Provider Encounter Details Date Type Department Care Team Description 12/05/2016 Surgery [facility], [facility] Brittnee wellington MD EXTRACAPSULAR, WITH [place] [facility] LENS INSERTION, [facility] (WRVU 08.21) [facility] [place] [address] [place] [address] [phone] (Wo rk) Social History Tobacco Use Types [...] documented in this encounter Discharge Instructions Discharge Paris Gordon RN - 12/05/2016 1:43 PM EST Instructions following CATARACT surgery Dr. Rodríguez Section of ophthalmology [facility] [phone] - Wear either the eye shield or glasses of any kind 24 hours per day for the first week following surgery. - Your appointment tomorrow with Dr. Rodríguez will be at the Eye Clinic in the main building at [facility]. Bring your Eye Kit to all postoperative visits. - Call you Primary Care Doctor or the Emergency Room for any non eye related medical issues. - It is normal to have a scratchy sensation or mild pain in your eye, but if you have any severe eyepain, vomiting or bleeding call [phone] and ask to speak to the ophthalmology doctor sectional belt mold assembler. - Your eye will be red tomorrow [...] 8 am - 5pm call ophthalmology : [phone] After 5pm or on a weekend or holiday: call the [facility] doughnut machine operator and ask for the ophthalmology physician sectional belt mold assembler.Instructions following CATARACT surgery Dr. Rodríguez Section of ophthalmology [facility] [phone] - Wear either the eye shield or glasses of any kind 24 hours per day for the first week following surgery. - Your appointment tomorrow with Dr. Rodríguez will be at the [facility] in the main building at [facility]. Bring your Eye Kit to all postoperative visits. - Call you Primary Care Doctor or the Emergency Room for any non eye related medical issues. - It is normal to have a scratchy sensation or mild pain in your eye, but if you have any severe eyepain, vomiting or bleeding call [phone] and ask to speak to the ophthalmology doctor sectional belt mold assembler. - Your eye will be red tomorrow [...] 8 am - 5pm call ophthalmology : [phone] After 5pm or on a weekend or holiday: call the [facility] doughnut machine operator and ask for the ophthalmology physician sectional belt mold assembler. documented in this encounter Medications at Time [...] Rodríguez MD - 12/05/2016 3:12 PM EST [facility] Operative Note Patient Name: Zeny Joe : [id number] MR#: [id number] Case Date: 12/05/2016 Surgeon: Surgeon(s) and Role: [...] Age-related nuclear cataract, bilateral Senile nuclear sclerosis Age-related nuclear cataract, bilateral Senile nuclear sclerosis [...] Given 12/05/2016 1:53 PM EST 1 drop fentaNYL 50 mcg/mL multi-dose injection Given 12/05/2016 3:00 PM EST 25 mcg 25 mcg, Intravenous, EVERY 5 MIN PRN, Starting on Sat12/05/16 at 1342, Until Sat12/05/16 at 1540, Pain, For use in the Operating Room (OR), Outpatient Surgical Center (OSXC)C, or Special Procedure Room only under direct provider supervision and verbal order. Hold for respiratory rate less than 8 breaths per minute. (maximum dose 100 mcg), Intra-Operative (Intra-Procedure), Routine Given 12/05/2016 2:48 PM EST 25 mcg Given 12/05/2016 2:40 PM EST 25 mcg ketorolac tromethamine (ACULAR) 0.5 % Given 12/05/2016 [...] 1540, Day of Surgery (Day of Procedure) midazolam (PF) (VERSED) 1 mg/mL multi-dose Given 12/05/2016 3:00 PM EST 0.5 mg injection 0.25-1 mg 0.25-1 mg, Intravenous, EVERY 5 MIN PRN, Starting on Sat12/05/16 at 1342, Until Sat12/05/16 at 1540, Anxiety, For use in the Operating Room (OR), Outpatient Surgery Center (OSC) or Special Procedure room only with direct provider supervision and verbal order. Hold for delirium/agitation. (Maximum dose 4 mg), Intra-Operative (Intra-Procedure), Routine Given 12/05/2016 2:49 PM EST 1 mg Given 12/05/2016 2:40 PM EST 1 mg moxifloxacin (VIGAMOX) 0.5 % ophthalmic Given 12/05/2016 [...] drop (COMPLETED) 1356 (Given - Provider: Jennifer Newman) 1 drop, Right Eye, ONCE, 1 dose, [...] mL 1408 (New Bag - Provider: Paris Milligan, RN)1526 (Stopped - Provider: Paris Milligan RN) 1,000 mL, at 100 mL/hr, Intravenous, CON TINUOUS, Starting Sat12/05/16 at 1400, Until Sat12/05/16 at 1540, Day of Surgery (Day of Procedure) PRN Medication Order 12/03/2016 12/04/2016 12/05/2016 acetaminophen (TYLENOL) tablet 650 mg (COMPLETED) 1528 (Given - Provider: Paris Milligan, DAVE) 650 mg, Oral, ONCE PRN, 1 dose, [...] EVERY 5 MIN PRN, 4 doses, Starting 12/05/16 at 1342, Until Sat12/05/16 at 1540, High [...] mL), Subcutaneous, ONCE PRN, 1 dose, Starting 12/05/16 at 1342, Until Sat12/05/16 at 1540, for [...] Routine documented in this encounter Care Teams Nurse Anesthesia Program Director Relationship Specialty Start Date End Date Zoey Lucas MD PCP - General 09/05/[address] [place] [address] [address] [place] [address] documented as of this encounter
--- OUTSIDE RECORDS SUMMARY | 2022-07-27 00:18 | XMS_ITS | Encounter Summary ---
:1940 Author Organization [facility] [place] [address] Care Team Providers Name Role Phone Zoey Lucas MD Primary Care Provider Reason for Visit Reason Comments Temporal Arteritis Pseudophakia OD 12/05/2016 Encounter Details Date Type Department Care Team Description 07/11/2017 Office Visit Ophthalmology at [facility] Anabela Rodríguez, Giant cell arteritis; [facility] MD Primo Visual field [place], [place] [address] CENTER [phone] OPHTHALMOLOGY [place], [place] [address] Social History Tobacco Use Types [...] encounter Progress Notes Primo Rodríguez MD - 07/11/2017 10:30 AM EDT Zeny Joe is a 77 y.o. female with the following medical problems; Past Medical History: Diagnosis Date ??? Allergic state ??? Anxiety ??? Arthritis RHEUMATOID ??? Asthma ??? Chronic kidney disease single kidney ??? 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 Giant cell arteritis 10/2015 ??? Hypertension ??? Skin disease Assessment and Plan: Giant cell arteritis Noted [...] depression in the left. Her optic nerves are normal in the right, and diffuse pallor in the left. MRI brain/orbits revealed enlarged extraocular muscles - TSH ordered is mildly elevated. This is likely thyroid related. Her TSH and free T4 is normal. Given that she is asymptomatic, without any diplopia- no acute management. F/u 1 year. Findings discussed with Zeny Joe today and she has expressed understanding. She will call me if she has any further concerns. For Follow up Visit 6 mths HVF, dilate, OCT documented in this encounter Miscellaneous Notes Assessment & Plan Note - Primo Rodríguez MD - 07/11/2017 11:56 AM EDT Associated Problem(s): Giant cell arteritis Noted vision loss in [...] depression in the left. Her optic nerves are normal in the right, and diffuse pallor in the left. MRI brain/orbits revealed enlarged extraocular muscles - TSH ordered is mildly elevated. This is likely thyroid related. Her TSH and free T4 is normal. Given that she is asymptomatic, without any diplopia- no acute management. F/u 1 year. documented in this encounter Plan of Treatment Not on filedocumented as of this encounter Procedures Procedure Name Priority Date/Time Associated Diagnosis Comme nts OCT OPTIC NERVE - Routine 07/11/2017 11:59 AM Visual field def ect, Results for this OU - BOTH EYES EDT unspecified procedure are in the results section. AUTOMATED VISUAL Routine 07/11/2017 11:59 AM Giant cell arteri tis Results for this FIELD - EXTENDED - EDT procedure are in OU- BOTH EYES the results section. documented in this encounter Results OCT OPTIC [id number] EYES (07/11/2017 11:59 AM EDT) Anatomical Region Laterality Modality Other Specimen (Source) Anatomical Location Collection Method / Collectio n Time Received Time / Laterality Volume Narrative 07/11/2017 11:59 AM EDT This result has an attachment that is no t available. Stable thinning Primo Rodríguez MD OPHTHALMOLOGY SERVICES ORD ERABLES AUTOMATED VISUAL FIELD - EXTENDED - OU- BOTH EYES (07/11/2017 11:59 AM EDT) Anatomical Region Laterality Modality Other Specimen (Source) Anatomical Location Collection Method / Collectio n Time Received Time / Laterality Volume Narrative 07/11/2017 11:59 AM EDT This result has an attachment that is no t available. Mild temporal defect OD, diffuse dep OS Primo Rodríguez MD OPHTHALMOLOGY SERVICES ORD ERABLES documented in this encounter Visit Diagnoses Diagnosis Giant cell arteritis Visual field defect, unspecified documented in this encounter Care Teams Mitten Sewer Relationship Specialty Start Date End Date Zoey Lucas MD PCP - General 09/05/[address] [place] [address] documented as of this encounter
--- OUTSIDE RECORDS SUMMARY | 2022-07-27 00:18 | XMS_ITS | Encounter Summary ---
:1940 Author Organization [facility] [place] [address] Care Team Providers Name Role Phone Zoey Lucas MD Primary Care Provider Encounter Details Date Type Department Care Team Description 08/01/2016 Laboratory Appointment Lab 3L Yuki Rolon GCA (giant cell [facility] arteritis) [place] [id number] Social History Tobacco Use Types Packs/Day Years [...] Date/Time Associated Comments Diagnosis SEDIMENTATION RATE Routine 08/01/2016 12:36 GCA (giant cell Re sults for this PM EDT arteritis) procedure are i n the results section. CRP, CARDIAC RISK (HS Routine 08/01/2016 12:36 GCA (giant cell Results for this CRP) PM EDT arteritis) procedure are i n the results section. COMPREHENSIVE Routine 08/01/2016 12:36 Results fo r this METABOLIC PANEL PM EDT procedure ar e in (NON-FASTING) the results section. documented in this encounter Results (ABNORMAL) Comprehensive metabolic panel (non-fasting) (08/01/2016 12:36 PM EDT) athologist Signature Glucose Lvl 107 65 - 199 [facility] mg/dL [facility] Comment: Diabetes: >=200 mg/dL plus symp toms BUN 24 (H) 8 - 18 mg/dL [facility] Creatinine 1.06 0.70 - 1.20 mg/dL [facility] Comment: Please note that the pediatric reference intervals supplied above were not validated at [facility]. Results from pediatri c patients should be interpreted in conjunction to the patient's age, height and muscle mass. Sodium 140 135 - 145 mmol/L [facility] Potassium 4.4 3.5 - 5.0 mmol/L [facility] Comment: Please note: ??Patients with WBC >100,00 0 may have falsely elevated Potassium levels. ??For accurate Potassium quantif ication in these patients send serum separator tube (gold top) for subsequent determinations. ??Contact the Clinical Chemistry Laboratory if there are any qu estions. Chloride 99 98 - 107 mmol/L [facility] CO2 29 22 - 31 mmol/L [facility] Anion Gap 12 5 - 15 mmol/L [facility] Calcium 10.4 8.5 - 10.5 mg/dL [facility] Total Protein 7.3 6.1 - 8.0 gm/dL [facility] Albumin 4.7 3.2 - 5.2 gm/dL [facility] AST 21 0 - 30 unit/L [facility] ALT 27 0 - 30 unit/L [facility] Alk Phos 46 40 - 104 unit/L [facility] Total Bilirubin 0.8 0.2 - 1.3 mg/dL [facility] Bili, Direct 0.1 0.0 - 0.3 mg/dL [facility] Estimated GFR 51 (L) >=60 [facility] Comment: This estimated GFR [...] the following links into your internet browser. [email or web address] to Scale/DHnkdep [email or web address] to Scale/DHMCnkf Specimen Anatomical Collection Method Collection Time Receive d Time (Source) Location / / Volume Laterality Blood specimen Venous Draw / 08/01/2016 12:36 08/01/20 16 1:21 (specimen) Unknown PM EDT PM EDT Resulting Agency Comment Spec In Lab Fahad Field MD CHEMISTRY ORDERABLES Performing Organization Address City/[facility]/[place] [address] Sedimentation rate (08/01/2016 12:36 PM EDT) P athologist Signature Sed Rate 11 0 - 20 [facility] mm/hr [facility] Specimen Anatomical Collection Method Collection Time Receive d Time (Source) Location / / Volume Laterality Blood specimen 08/01/2016 12:36 6 (specimen) PM EDT 12:48 PM EDT Resulting Agency Comment Spec In Lab Sonido Morrison MD HEMATOLOGY ORDERABLES Performing Organization Address City/[facility]/[place] [address] High Sensitivity CRP (08/01/2016 12:36 PM EDT) P athologist Signature CRP High Sens 0.8 mg/L [facility] Comment: Interpretations: 1) For accurate [...] the test package insert) References: 1. Stevie TA et. al. ??AHA/CDC Scientif ic Statement: Markers of Inflammation and Cardiovascular Disease. ??Circulatio n 2003; 107:499-511 2. Ridker PM. ??Clinical applications of C-reactive protein for cardiovascular disease detection and prevention. ??Circ ulation 2003; 107:363-369 Specimen Anatomical Collection Method Collection Time Receive d Time (Source) Location / / Volume Laterality Blood specimen 08/01/2016 12:36 6 (specimen) PM EDT 12:48 PM EDT Resulting Agency Comment Spec In Lab Fahad Field MD CHEMISTRY ORDERABLES Performing Organization Address City/State/[place] [address] documented in this encounter Visit Diagnoses Diagnosis GCA (giant cell arteritis) Giant cell arteritis documented in this encounter Care Teams Correctional Cook Relationship Specialty Start Date End Date Zoey Lucas MD PCP - General 09/05/[address] [place] [address] documented as of this encounter
--- OUTSIDE RECORDS SUMMARY | 2022-07-27 00:18 | XMS_ITS | Encounter Summary ---
:1940 Author Organization [facility] Address [facility] [place] [address] Care Team Providers Name Role Phone Zoey Lucas MD Primary Care Provider Reason for Visit Reason Comments Medication Refill Encounter Details Date Type Department Care Team Description 06/24/2016 Refill Rheumatology at [facility] Cliff Kline MD [facility] Lizet carbajal [facility] [place] [address] GENERAL INTERNAL MEDICINE [phone] [place], [place] [address] (Wo rk) Social History Tobacco [...] on filedocumented in this encounter Care Teams Core Drill Operator Helper Relationship Specialty Start Date End Date Zoey Lucas MD PCP - General 09/05/10 [facility] [address] [place] [address] documented as of this encounter
--- OUTSIDE RECORDS SUMMARY | 2022-07-27 00:18 | XMS_ITS | Encounter Summary ---
:1940 Author Organization [facility] [place] [address] Care Team Providers Name Role Phone Zoey Lucas MD Primary Care Provider Reason for Visit Reason Comments Procedure Encounter Details Date Type Department Care Team Description 11/20/2016 Procedure visit Ophthalmology at [facility] C Age-related nuclear [facility] D [place]ve cataract, [place] [address] Social History Tobacco Use Types Packs/Day [...] as of this encounter Plan of Treatment Pending Results Name Type Priority Associated Diagnoses Date/Ti me [id number] Ophthalmology Routine Age-related nuclear 11:07 AM CALC BY LASER cataract, bilateral EST [id number] TH EYES documented as of this encounter Visit Diagnoses Diagnosis Age-related nuclear cataract, bilateral Senile nuclear sclerosis documented in this encounter Care Teams Silo Erector Relationship Specialty Start Date End Date Zoey Lucas MD PCP - General 09/05/[address] [place] [address] documented as of this encounter
--- OUTSIDE RECORDS SUMMARY | 2022-07-27 00:18 | XMS_ITS | Encounter Summary ---
:1940 Author Organization [facility] [place] [address] Care Team Providers Name Role Phone Zoey Lucas MD Primary Care Provider Reason for Visit Reason Comments Blurred Vision Temporal Arteritis Encounter Details Date Type Department Care Team Description 08/21/2016 Office Visit Ophthalmology at [facility] Anabela Rodríguez, Age-related nuclear cataract , bilateral (Primary Dx); [facility] MD Primo [place] [address] CENTER [phone] OPHTHALMOLOGY [place], [place] [address] Social History Tobacco Use Types [...] encounter Progress Notes Primo Rodríguez MD - 08/21/2016 2:30 PM EST Zeny Joe is a 76 y.o. female with the following medical problems; Past Medical History Diagnosis Date ??? Allergic state ??? Anxiety [...] TA biopsy positive. On steroids per rheumatology. 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 Unchanged HVF today. MRI brain/orbits revealed enlarged extraocular muscles - TSH ordered is mildly elevated. This is likely thyroid related. Her TSH and free T4 is normal. Given that she is asymptomatic, without any diplopia- no acute management. She is also interested in CEIOL OD - plan for 11/30. Findings discussed with Zeny Joe today and she has expressed understanding. She will call me if she has any further concerns. For Follow up Visit 4 mths documented in this encounter Miscellaneous Notes Assessment & Plan Note - Primo Rodríguez MD - 08/22/2016 10:11 AM EST Associated Problem(s): Giant cell arteritis Noted vision loss in the left eye early October 2015. My examination revealed PION in the left eye. She was admitted for IV steroids after developing some peripheral right eye changes. Elevated ESR, subsequent TA biopsy positive. On steroids per rheumatology. 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 Unchanged HVF today. MRI brain/orbits revealed enlarged extraocular muscles - TSH ordered is mildly elevated. This is likely thyroid related. Her TSH and free T4 is normal. Given that she is asymptomatic, without any diplopia- no acute management. She is also interested in CEIOL OD - plan for 11/30. documented in this encounter Plan of Treatment Pending Results Name Type Priority Associated Diagnoses Date/Ti me [id number] Ophthalmology Routine Age-related nuclear 11:07 AM CALC BY LASER cataract, bilateral EST [id number] TH EYES Scheduled Orders Name Type Priority Associated Diagnoses Order S chedule [id number] Ophthalmology Routine Age-related nuclear Ex pected: 09/20/2016 CALC BY LASER cataract, bilateral (Approx imate), [id number] Expires: 08/21/2017 TH EYES documented as of this encounter Procedures Procedure Name Priority Date/Time Associated Diagnosis Comme nts OCT OPTIC NERVE - Routine 08/22/2016 10:19 AM Giant cell arter itis Results for this OU - BOTH EYES EST procedure are in the results section. FUNDUS PHOTOS - OU- Routine 08/22/2016 10:19 AM Age-related nu clear Results for this BOTH EYES EST cataract, bilate ral procedure are in Giant cell arteritis the res ults section. AUTOMATED VISUAL Routine 08/22/2016 10:18 AM Age-related nucle ar Results for this FIELD - EXTENDED - EST cataract, bilateral pr ocedure are in OU- BOTH EYES the results section. documented in this encounter Results OCT OPTIC [id number] EYES (08/22/2016 10:19 AM EST) Anatomical Region Laterality Modality Other Specimen (Source) Anatomical Location Collection Method / Collectio n Time Received Time / Laterality Volume Narrative 08/22/2016 10:19 AM EST This result has an attachment that is no t available. Pallor OS Primo Rodríguez MD OPHTHALMOLOGY SERVICES ORD ERABLES FUNDUS PHOTOS - OU- BOTH EYES (08/22/2016 10:19 AM EST) Anatomical Region Laterality Modality Other Specimen (Source) Anatomical Location Collection Method / Collectio n Time Received Time / Laterality Volume Narrative 08/22/2016 10:19 AM EST This result has an attachment that is no t available. Pallor OS Primo Rodríguez MD OPHTHALMOLOGY SERVICES ORD ERABLES AUTOMATED VISUAL FIELD - EXTENDED - OU- BOTH EYES (08/22/2016 10:18 AM EST) Anatomical Region Laterality Modality Other Specimen (Source) Anatomical Location Collection Method / Collectio n Time Received Time / Laterality Volume Narrative 08/22/2016 10:18 AM EST This result has an attachment that is no t available. Temporal defect OD, diffuse constriction OS Primo Rodríguez MD OPHTHALMOLOGY SERVICES ORD ERABLES documented in this encounter Visit Diagnoses Diagnosis Age-related nuclear cataract, bilateral - Primary Senile nuclear sclerosis Giant cell arteritis documented in this encounter Care Teams Lumber Stacker Driver Relationship Specialty Start Date End Date Zoey Lucas MD PCP - General 09/05/[address] [place] [address] documented as of this encounter
--- OUTSIDE RECORDS SUMMARY | 2022-07-27 00:18 | XMS_ITS | Encounter Summary ---
:1940 Author Organization [facility] Address [address] [address] Care Team Providers Name Role Phone Zoey Lucas MD Primary Care Provider Encounter Details Date Type Department Care Team Description 01/02/2017 Office Visit [place] [facility] [place] Kline MD GCA (giant cell [facility] art eritis) [place] [address] GENERAL INTERNAL [phone] MEDICINE [place], [place] [address] Social History Tobacco Use Types [...] Sign Reading Time Taken Comments Blood Pressure 149/81 01/02/2017 3:03 PM EDT Pulse 90 01/02/2017 3:03 PM EDT Temperature 36.6 ??C (97.8 ??F) 01/02/2017 3:03 PM EDT Respiratory Rate 18 01/02/2017 3:03 PM EDT Oxygen Saturation 100% 01/02/2017 3:03 PM EDT Inhaled Oxygen Concentration - - Weight 78 kg (172 lb) 01/02/2017 3:03 PM EDT Height 160 cm (5' 3) 01/02/2017 3:03 PM EDT Body Mass Index 30.47 01/02/2017 3:03 PM EDT documented in this encounter Progress Notes Cliff Kline MD - 01/02/2017 3:15 PM EDT Rheumatology Outpatient Consultation Note Rheum history GCA biopsy proven with visual changes - pulsed IV steroids x 3 days 10/27/15 - prednisone taper starting 60mg daily 10/27/15 - PJP prophylaxis stopped at pred ~01/2016 Interval: Zeny Joe is a 76 y.o. female with h/o HTN, depression who is here for f/u of biopsy proven GCA with visual changes. She was doing well since last visit, decreasing prednisone by 1mg every month, until the beginning of December, when she started on 1mg. Starting on December 24, she has had some jaw pain. At our instruction she increased back to 2mg, which alleviated some of the pain, but not completely. She currently has some jaw and frontal pain, but no visual changes or fevers. She has worsening with chewing. She is going to have labs checked today, so we will see if they have elevated at all. We reviewed her last ESR and CRP which were both normal. Her other complaint is low back pain, worse with standing and walking, no history of trauma, the pain is mostly over the left lumbar and trochanteric area. This has been an ongoing problem for several years. 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 General: NAD, AAOx3 HEENT: NC/AT,bilaterally tender left jaw, no palpable cords, +temporal artery pulsations Skin: No rashes Neck: supple Cardiovascular: S1S2, 3/6 sys murmur at base Lungs: CTA b/l Abdomen: ND, NT Neuro: Grossly intact Left hip tenderness over trochanteric bursa, fROM Laboratory Data: Last 3 wbc, hgb, hct plt Recent Labs 03/27/16 1708 WBC 9.8 HGB 12.5 HCT 37.4 PLATELET 311 Last 3 Lytes Recent Labs 08/01/16 1236 03/27/16 1708 NA 140 139 K 4.4 3.9 CL 99 97* CO2 29 29 BUN 24* 19* CREATININE 1.06 1.01 Last 3 LFTs Recent Labs 08/01/16 1236 03/27/16 1708 AST 21 13 ALT 27 24 ALKPHOS 46 42 BILITOT 0.8 0.5 BILIDIR 0.1 0.1 Last CRP, SEDRATE Recent Labs 08/01/16 1236 CRP 0.8 SEDRATE 11 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 female who presents today for follow up of GCA. Her current jaw symptomsare concerning for recurrence of her disease, so we will follow up her ESR and CRP today and increase her prednisone to 5mg until next visit. If her markers return grossly elevated, we may repeat them before next visit. Her symptoms of back pain seem most related to steroid withdrawal and back strain, along with some trochanteric bursitis. Would suggest repeat PT, and if her pain level continues we would do plain films to ensure no vertebral fracture, and would also consider a trochateric bursal injection. #GCA -prednisone 5mg increased from 2mg - cont ASA prophylaxis - cont to monitor for recurrence, may increase prednisone and call us if symptoms flare #CVA prophylaxis -ASA 81 daily #Osteoprotection - DEXA scan normal 2015 - continue on Ca and Vit D - Had reclast infusion 01/2016 Follow-up 3 months CC: MD Cliff Martinez MD 01/02/2017 Jeri Lopes MD - 01/02/2017 3:[address] Kline provided the care for this patient. I have reviewed his note. documented in this encounter Miscellaneous Notes Addendum Note - Harsha Turner - 01/02/2017 4:02 PM EDT Addended by: HARSHA TURNER on: 01/02/2017 04:02 PM Modules accepted: Orders documented in this encounter Plan of Treatment Not on filedocumented as of this encounter Procedures Procedure Name Priority Date/Time Associated Comments Diagnosis CRP, ACUTE Routine 01/02/2017 4:06 PM GCA (giant cell Result s for this INFLAMMATION EDT arteritis) procedure are i n the results section. SEDIMENTATION RATE Routine 01/02/2017 4:06 PM GCA (giant cell Results for this EDT arteritis) procedure are i n the results section. documented in this encounter Results CRP, acute inflammation (01/02/2017 4:06 PM EDT) athologist Signature CRP 1.0 <=4.9 mg/L [facility] Specimen Anatomical Collection Method Collection Time Receive d Time (Source) Location / / Volume Laterality Blood specimen 01/02/2017 4:06 PM 017 4:11 (specimen) EDT PM EDT Resulting Agency Comment Spec In Lab Jeri Lopes MD CHEMISTRY ORDERABLES Performing Organization Address City/State/[place] [address] Sedimentation rate (01/02/2017 4:06 PM EDT) P athologist Signature Sed Rate 11 0 - 20 [facility] mm/hr [facility] Specimen Anatomical Collection Method Collection Time Receive d Time (Source) Location / / Volume Laterality Blood specimen 01/02/2017 4:06 PM 017 4:11 (specimen) EDT PM EDT Resulting Agency Comment Spec In Lab Jeri Lopes MD HEMATOLOGY ORDERABLES Performing Organization Address City/State/[place] [address] documented in this encounter Visit Diagnoses Diagnosis GCA (giant cell arteritis) Giant cell arteritis documented in this encounter Care Teams Monogram Machine Operator Relationship Specialty Start Date End Date Zoey Lucas MD PCP - General 09/05/[address] [place] [address] documented as of this encounter
--- OUTSIDE RECORDS SUMMARY | 2022-07-27 00:18 | XMS_ITS | Encounter Summary ---
:1940 Author Organization [facility] Address [facility] [place] [address] Care Team Providers Name Role Phone Zoey Lucas MD Primary Care Provider Reason for Visit Reason Comments Medication Refill Encounter Details Date Type Department Care Team Description 11/04/2016 Refill Rheumatology [place] [facility] [place] Cliff Kline MD [facility] Lizet carbajal [facility] [place] [address] GENERAL INTERNAL MEDICINE [phone] [place], [place] [address] (Wo rk) Social History Tobacco [...] on filedocumented in this encounter Care Teams Precision Lens Generator Relationship Specialty Start Date End Date Zoey Lucas MD PCP - General 09/05/10 [facility] [address] [place] [address] documented as of this encounter
--- OUTSIDE RECORDS SUMMARY | 2022-07-27 00:18 | XMS_ITS | Encounter Summary ---
:1940 Author Organization [facility] Address [address] [place] [address] Care Team Providers Name Role Phone Zoey Lucas MD Primary Care Provider Reason for Visit Reason Onset Date Comments Eye Problem 01/04/2016 Patient calling to sorin strauss vision in RE Encounter Details Date Type Department Care Team Description 01/04/2016 Telephone Ophthalmology [facility] Sorin [place] [address] [facility] vision in RE) [phone] OPHTHALMOLOGY DE PT [place], [place] [address] Social History Tobacco Use Types [...] Telephone Encounter - Tanya Sharif COT - 01/04/2016 1:27 PM EDT Will be seen by DOC/Dr. Lindo on 01/04 at 9AM with HVF 24-2 mary standard at 10AM. Telephone Encounter - Tanya Sharif COT - 01/04/2016 11:41 AM EDT I would say get this patient in this week to see the DOC and have repeat HVF 24- 2 mary standard testing done. ??Once we see how the HVF compares to that one done in October, we can have a better idea about whether things are really changing (The VF done by Lynda's office is not very helpful). ??At the DOC visit- based on VF and vision, ??we can determine how soon she should see Dr Mccormick ? Telephone Encounter - Tanya Sharif COT - 01/04/2016 10:22 AM EDT Patient called to follow up about some concerns with her RE as it is only seeing eye. She saw Dr. Flannery for new glasses and then a week following, she felt there was something off with her right eye. Returned to see Dr. Flannery and he reassured her that everything appears stable with the right eye. He did fax notes for urgent review with Dr Cotto. Patient states there are NO changes since that visit on 12/28. She is hoping for a visit with Dr Cotto in the near future for reassurance. Advised that Dr Cotto is away and not returning until 01/10. Will have Marisa review and advise urgency and scheduling/review with Dr Cotto. Patient reassured that notes with HVF were received and if any acute changes to follow up with Dr. Flannery. Telephone Encounter - Tanya Sharif COT - 01/04/2016 10:03 AM EDT Patient seen locally last week for concerns about the RE. Is concerned about changes and wanted to schedule sooner appointment with Dr Cotto. She will be at [facility] on Saturday for blood work/or anytime will work for her. Primo Rodríguez MD at 12/15/2015 ??2:25 PM ? Author Type: Physician Status: Signed Mouthpiece Maker: Primo Rodríguez MD (Physician) ?? Expand All Collapse All Zeny Joe is a 75 y.o. female with the following medical problems; ? Past Medical History Past Medical History?? Diagnosis?? Date? Allergic state? Arthritis? Asthma? Anxiety? Hypertension? Chronic kidney disease? single kidney? Skin disease? 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 Giant cell arteritis?? 10/2015?? Assessment and Plan: Giant cell arteritis Noted vision loss in the left eye early October. My examination revealed PION in the left eye. She was admitted for IV steroids after developing some peripheral right eye changes. Elevated ESR, subsequent TA biopsy positive.?? On steroids per rheumatology. ?? On examination today, Zeny Joe normal vision in the right eye. Her left eye demonstrated reduced visual function, absent color vision, with a dense relative afferent pupillary defect that would suggest an underlying optic nerve dysfunction. Static visual ochoa were full in the right eye with some scattered dep points peripherally and diffusely depressed in the left., superiorly more than inferiorly. The optic nerves are healthy on the right, and pale on the left. ?? 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 MRI brain/orbits revealed enlarged extraocular muscles - TSH ordered is mildly elevated. This is likely thyroid related. Her TSH and free T4 is normal. Given that she is asymptomatic, without any diplopia- no acute management. Findings discussed with Zeny Joe today and she has expressed understanding. She will call me if she has any further concerns. For Follow up Visit 3 mths HVF, sooner prn documented in this encounter Plan of Treatment Not on filedocumented as of this encounter Visit Diagnoses Not on filedocumented in this encounter Care Teams Underwriting Manager Relationship Specialty Start Date End Date Zoey Lucas MD PCP - General 09/05/[address] [place] [address] documented as of this encounter
--- OUTSIDE RECORDS SUMMARY | 2022-07-27 00:18 | XMS_ITS | Encounter Summary ---
:1940 Author Organization [facility] [place] [address] Care Team Providers Name Role Phone Zoey Lucas MD Primary Care Provider Encounter Details Date Type Department Care Team Description 12/05/2016 Anesthesia Event Outpatient Surgery Megan Lopez MD [facility] [place] [address] [place] [address] [phone] Anesthesia Record Procedure Summary Procedure Name Responsible Anesthesia Start Anesthesia Stop Time Anesthesiologist Time CATARACT EXTRACTION, EXTRACAPSULAR, WITH LENS INSERTION, COMPLEX (WRVU 11.08) (Right Eye) Events No events on file. No medications [...] on filedocumented in this encounter Care Teams Sagger Soak Relationship Specialty Start Date End Date Zoey Lucas MD PCP - General 09/05/[address] [place] [address] documented as of this encounter
--- OUTSIDE RECORDS SUMMARY | 2022-07-27 00:18 | XMS_ITS | Encounter Summary ---
:1940 Author Organization [facility] Address [facility] [place] [address] Care Team Providers Name Role Phone Zoey Lucas MD Primary Care Provider Encounter Details Date Type Department Care Team Description 2017 Office Visit Rheumatology at [facility] Cliff Kline MD GCA (giant cell [facility] art eritis) [place] [id number] GENERAL INTERNAL [phone] [place], [place] [address] Social History Tobacco Use Types [...] Sign Reading Time Taken Comments Blood Pressure 167/67 2017 10:15 AM EDT had coff ee Pulse 75 2017 10:15 AM EDT Temperature - - Respiratory Rate 18 2017 10:15 AM EDT Oxygen Saturation 100% 2017 10:15 AM EDT Inhaled Oxygen Concentration - - Weight 76.7 kg (169 lb) 2017 10:15 AM EDT Height 160 cm (5' 3) 2017 10:15 AM EDT Body Mass Index 29.94 2017 10:15 AM EDT documented in this encounter Progress Notes Cliff Kline MD - 2017 10:30 AM EDT Rheumatology Outpatient Consultation Note Rheum history GCA biopsy proven with visual changes - pulsed IV steroids x 3 days 10/27/15 - prednisone taper starting 60mg daily 10/27/15 - PJP prophylaxis stopped at pred ~01/2016 Interval: Zeny Joe is a 77 y.o. female with h/o HTN, depression who is here for f/u of biopsy proven GCA with visual changes. Since last visit, because of recurrent jaw pain and temporal headache, despite normal inflammatory markers, we increased her prednisone back from 5mg to 7mg, and have stayed at that dose since. Her headaches are gone, and she has not had any visual changes. She still occasionally experiences jaw pain, but less often than before. She is not having any side effects from her prednisone, and continues on aspiring, calcium and vitamin D. No other new complaints, or recurrence of headaches, no new PMR symptoms. 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: Prednisone 2mg All: beta blockers FHx: melanoma- mother MGMA: kidney Ca Father- cva ROS: No wt loss, no NS No CP No SOB No GI No Physical Examination: Resp 18 Ht 160 cm (5' 3) Wt 76.7 kg (169 lb) BMI 29.94 kg/m2 General: NAD, AAOx3 HEENT: NC/AT, no tenderness over jaw no palpable cords, +temporal artery pulsations Skin: No rashes Neck: supple Cardiovascular: S1S2, 3/6 sys murmur at base Lungs: CTA b/l Abdomen: ND, NT Neuro: Grossly intact Left hip tenderness over trochanteric bursa, fROM Laboratory Data: Last 3 wbc, hgb, hct plt No results for input(s): WBC, HGB, HCT, PLATELET in the last 7068 hours. 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 female who presents today for follow up of GCA. With the increase in prednisone to 7mg, her symptoms are improved, we will follow her ESR and CRP and attempt to taper by 1mgevery 4 weeks. She knows to continue to monitor for sudden changes in vision, headaches and fevers and to call us immediately should that occur. At this low dose, she can likely stay on prednisone without [facility] ill effects, and we would not consider [...] infusion 02/2017, now on only 7mg of prednisone, will discuss with PCP whether she needs to continue given low risk for steroid induced osteoporosis F/u 6 months CC: MD Cliff Martinez MD 2017 documented in this encounter Plan of Treatment Not on filedocumented as of this encounter Procedures Procedure Name Priority Date/Time Associated Comments Diagnosis SEDIMENTATION RATE Routine 2017 10:56 GCA (giant cell Re sults for this AM EDT arteritis) procedure are i n the results section. CRP, CARDIAC RISK (HS Routine 2017 10:56 GCA (giant cell Results for this CRP) AM EDT arteritis) procedure are i n the results section. documented in this encounter Results CRP, cardiac risk (HS CRP) (2017 10:56 AM EDT) P athologist Signature CRP High Sens 2.0 mg/L [facility] Comment: For cardiac risk assessment, two values (fasting or nonfasting sample acceptable) taken at least 2 weeks apart , should be averaged to provide a more reliable estimate of marker level. This laboratory will be using the recomm endations from the AHA/CDC Scientific Statement for interpretations of future risks of cardiovascular events: ?<1.0 mg/L: low risk ?1.0 to 3.0 mg/L: moderate ri sk ?>3.0 mg/L: high ris k ?>10.0 mg/L: Acute I nflammation Note: CRP values >10 mg/L indicate an ac [place] inflammatory condition or infection. The >10 mg/L value should not be used for cardiac risk assessment and a repeat specimen should be collecte d at least two weeks after resolution of the acute inflammatory condition. References: 1. Stevie VALENTINE et. al. ??AHA/CDC Scientif ic Statement: Markers of Inflammation and Cardiovascular Disease. ??Circulation 2003; 107:499-511 2. Dereje PM. ??Clinical applications of C-reactive protein for cardiovascular disease detection and pre vention. ??Circulation 2003; 107:363-369 CRP Cardiac Risk Moderate Risk [facility] Specimen Anatomical Collection Method Collection Time Receive d Time (Source) Location / / Volume Laterality Blood specimen 2017 10:56 7 (specimen) AM EDT 11:00 AM EDT Resulting Agency Comment Spec In Lab Ravi Potts II, DO CHEMISTRY ORDERABLES Performing Organization Address City/State/[place] [address] Sedimentation rate (2017 10:56 AM EDT) P athologist Signature Sed Rate 12 0 - 20 [facility] mm/hr [facility] Specimen Anatomical Collection Method Collection Time Receive d Time (Source) Location / / Volume Laterality Blood specimen 2017 10:56 7 (specimen) AM EDT 11:00 AM EDT Resulting Agency Comment Spec In Lab Ravi Potts II, DO HEMATOLOGY ORDERABLES Performing Organization Address City/[facility]/[place] [address] documented in this encounter Visit Diagnoses Diagnosis GCA (giant cell arteritis) Giant cell arteritis documented in this encounter Care Teams Radio Communication Coordinator Relationship Specialty Start Date End Date Zoey Lucas MD PCP - General 09/05/[address] [place] [address] documented as of this encounter
--- OUTSIDE RECORDS SUMMARY | 2022-07-27 00:18 | XMS_ITS | Encounter Summary ---
:1940 Author Organization [facility] [place] [address] Care Team Providers Name Role Phone Zoey Lucas MD Primary Care Provider Encounter Details Date Type Department Care Team Description 02/10/2018 Hospital Encounter XRay at [facility] Orzechowski, Lumbar back pain [address] [facility] [address] Briseida Matias, [facility] [id number] [place] [phone] RHEUMATOLOGY DEPT. [place], [place] [address] Social History Tobacco Use Types [...] Priority Date/Time Associated Diagnosis Comme nts XR LUMBAR SPINE 2 Routine 02/10/2018 10:38 AM Lumbar back pain Results for this OR 3 VIEWS EDT procedure are i n the results section. documented in this encounter Results XR Lumbar Spine 2 [...] Visit Diagnoses Diagnosis Lumbar back pain Lumbago documented in this encounter Care Teams Pompom Maker Relationship Specialty Start Date End Date Zoey Lucas MD PCP - General 09/05/[address] [place] [address] documented as of this encounter
--- OUTSIDE RECORDS SUMMARY | 2022-07-27 00:18 | XMS_ITS | Encounter Summary ---
:1940 Author Organization [facility] Address [address] [facility] [place] [address] Care Team Providers Name Role Phone Zoey Lucas MD Primary Care Provider Encounter Details Date Type Department Care Team Description 01/22/2018 Office Visit Rheumatology at [facility] Cliff Kline MD Encounter for [facility] DR [place] [address] GENERAL INTERNAL [phone] MEDICINE [place], [place] [address] Social History Tobacco Use Types [...] Sign Reading Time Taken Comments Blood Pressure 135/71 01/22/2018 11:31 AM EDT Pulse 84 01/22/2018 11:31 AM EDT Temperature - - Respiratory Rate 18 01/22/2018 11:31 AM EDT Oxygen Saturation 98% 01/22/2018 11:31 AM EDT Inhaled Oxygen Concentration - - Weight 78.9 kg (174 lb) 01/22/2018 11:31 AM EDT Height 160 cm (5' 3) 01/22/2018 11:31 AM EDT Body Mass Index 30.82 01/22/2018 11:31 AM EDT documented in this encounter Progress Notes Cliff Kline MD - 01/22/2018 11:30 AM EDT Rheumatology Outpatient Consultation Note Rheum history GCA biopsy proven with visual changes - pulsed IV steroids x 3 days 10/27/15 - prednisone taper starting 60mg daily 10/27/15 - PJP prophylaxis stopped at pred ~01/2016 Interval: Zeny Joe is a 77 y.o. 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 Since last visit, she remains of prednisone 7mg, as she has recurrent jaw pain and temporal headache, when she decreases her dose further. Though as previously noted, she has normal inflammatory markers with this. Her headaches are gone, and she has not had any visual changes. She still occasionally experiences jaw pain, but less often than before. She is not having any side effects from her prednisone, and continues on aspirin, calcium and vitamin D. No other new complaints, or recurrence of headaches, no new PMR symptoms. Increasing stiffness in the hands, which is new and lasting an hour of morning stiffness. Wrist, hands and back. 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 Last 3 Lytes No results for input(s): NA, K, CL, CO2, BUN, CREATININE in the last 7068 hours. Last 3 LFTs No results for input(s): AST, ALT, ALKPHOS, BILITOT, BILIDIR in the last 7068 hours. Last CRP, SEDRATE Recent Labs 05/22/17 1056 CRP 2.0 SEDRATE 12 Studies: Posterior ischemic optic neuropathy [...] not clear this would be less harmful. In case we need to do that, we are checking prebiologic labs today For her prolonged hand stiffness, we will check Rf, CCP and we will follow her ESR and CRP, and haveher come back in for an ultrasound of her hands. She knows to continue to monitor for sudden changes in vision, headaches and fevers and to call us immediately should that occur. At this low dose, she can likely stay on prednisone without nursing home ill effects, and we would not consider [...] 6 months CC: MD Cliff Martinez MD 01/22/2018 Jeri Lopes MD - 01/22/2018 11:[address] Kline provided the care for this patient. documented in this encounter Plan of Treatment Not on filedocumented as of this encounter Procedures Procedure Name Priority Date/Time Associated Comments Diagnosis CRP, ACUTE Routine 01/22/2018 12:44 Encounter for Results fo r this INFLAMMATION PM EDT monitoring procedure are i n tocilizumab therapy the resu lts section. QUANTIFERON-TB GOLD Routine 01/22/2018 12:44 Encounter for Res ults for this PM EDT monitoring procedure are i n tocilizumab therapy the resu lts section. ANTI-CYCLIC Routine 01/22/2018 12:44 Encounter for Results fo r this CITRULLINATED PEPTIDE PM EDT monitoring proced ure are in AB tocilizumab therapy the resu lts section. HEMOGRAM Routine 01/22/2018 12:44 Encounter for Results fo r this PM EDT monitoring procedure are i n tocilizumab therapy the resu lts section. DIFFERENTIAL, Routine 01/22/2018 12:44 Encounter for Results f or this AUTOMATED PM EDT monitoring procedure are i n tocilizumab therapy the resu lts section. HEPATITIS C ANTIBODY Routine 01/22/2018 12:44 Encounter for Re sults for this PM EDT monitoring procedure are i n tocilizumab therapy the resu lts section. HEPATITIS B CORE Routine 01/22/2018 12:44 Encounter for Result s for this ANTIBODY, TOTAL PM EDT monitoring procedure ar e in tocilizumab therapy the resu lts section. HEPATITIS B SURFACE Routine 01/22/2018 12:44 Encounter for Res ults for this ANTIBODY PM EDT monitoring procedure are i n tocilizumab therapy the resu lts section. HEPATITIS B SURFACE Routine 01/22/2018 12:44 Encounter for Res ults for this ANTIGEN PM EDT monitoring procedure are i n tocilizumab therapy the resu lts section. SEDIMENTATION RATE Routine 01/22/2018 12:44 Encounter for Resu lts for this PM EDT monitoring procedure are i n tocilizumab therapy the resu lts section. CBC (WITH DIFF) Routine 01/22/2018 12:44 Encounter for PM EDT monitoring tocilizumab therapy RHEUMATOID FACTOR, Routine 01/22/2018 12:44 Encounter for Resu lts for this QUANT PM EDT monitoring procedure are i n tocilizumab therapy the resu lts section. CHOLESTEROL, TOTAL Routine 01/22/2018 12:44 Encounter for Resu lts for this PM EDT monitoring procedure are i n tocilizumab therapy the resu lts section. COMPREHENSIVE Routine 01/22/2018 12:44 Encounter for Results f or this METABOLIC PANEL PM EDT monitoring procedure ar e in (NON-FASTING) tocilizumab therapy the res ults section. documented in this encounter Results XR [...] unremarkable. Jeri Lopes MD IMG DX ORDERABLES Differential, Automated (01/22/2018 12:44 PM EDT) athologist Signature Neutrophils % 78.4 % [facility] Neutr Abs (ANC) 6.08 1.70 - [facility] 6.10 [facility] x10(3)/[facility] LABORATORY Lymphocytes % 14.7 % [facility] Lymphocytes Abs 1.1 0.9 - 3.2 [facility] x10(3)/[facility] LABORATORY Monocytes % 5.5 % [facility] Monocyte Abs 0.4 0.3 - 0.9 [facility] x10(3)/[facility] LABORATORY Eosinophils % 0.1 % [facility] Eosinophils Abs 0.0 0.0 - 0.4 [facility] x10(3)/[facility] LABORATORY Basophils % 0.8 % [facility] Basophils Abs 0.1 0.0 - 0.1 [facility] x10(3)/[facility] LABORATORY Immature Gran % 0.50 % [facility] Comment: Immature granulocytes(IG's)percentage an d absolute count will include metamyelocytes, myelocytes, and promyelo cytes. Blood smears from CBCs yielding IG's will be scanned manually for concor dance. If this scan disagrees with the automated IG or if promyelocytes are not ed, a manual differential will be performed. L[place] Gran Abs 0.04 0.00 - 0.04 x10(3)/[facility] Specimen Anatomical Collection Method Collection Time Receive d Time (Source) Location / / Volume Laterality Blood specimen 01/22/2018 12:44 8 (specimen) PM EDT 12:53 PM EDT Resulting Agency Comment Spec In Lab Cliff Kline MD HEMATOLOGY ORDERABLES Performing Organization Address City/State/[place] [address] Hemogram (01/22/2018 12:44 PM EDT) P athologist Signature WBC 7.8 4.0 - 9.5 [facility] x[facility](3)/[facility] LABORATORY RBC 4.20 4.00 - [facility] 5.21 [facility] x10(6)/[facility] LABORATORY Hemoglobin 12.6 11.7 - [facility] 15.5 gm/dL [facility] Hematocrit 38.9 35.7 - [facility] 45.8 % [facility] MCV 92.6 82.6 - [facility] 94.4 [facility] LABORATORY MCH 30.0 27.1 - [facility] 32.0 pg [facility] MCHC 32.4 31.7 - [facility] [place]INA 35.0 gm/dL [facility] Platelets 245 145 - 357 [facility] x10(3)/[facility] LABORATORY RDWSD 45.2 37.0 - [facility] FAUSTINA 46.0 [facility] LABORATORY RDWCV 13.2 11.5 - [facility] FA[place] 14.1 % [facility] MPV 10.9 7.6 - 12.9 [facility] nRBC % Auto 0.0 % [facility] nRBC Abs Auto 0.000 0.000 - [facility] FAUSTINA 0.000 [facility] x10(3)/[facility] LABORATORY Specimen Anatomical Collection Method Collection Time Receive d Time (Source) Location / / Volume Laterality Blood specimen 01/22/2018 12:44 8 (specimen) PM EDT 12:53 PM EDT Resulting Agency Comment Spec In Lab Cliff Kline MD HEMATOLOGY ORDERABLES Performing Organization Address City/State/ZIP Code Phon e Number [facility] [place] [address] Cholesterol, total (01/22/2018 12:44 PM EDT) P athologist Signature Chol, Total 277 mg/dL [facility] Comment: Lower Risk: <200 mg/dL Average Risk: 200-239 mg/dL Higher Risk: >ey=058 mg/dL Lipid Interpretation See Note [facility]ANI [facility] Comment: Lipid management should be guided by a p atient? s ASCVD risk, goals and preferences. ACC/AHA Guidelines recommend high intens ity statin if clinical ASCVD or LDL greater than or equal to 190 mg/dL. http://[employer].com/ESP-PNC-Tippxbuxo Adults aged 40-75 with LDL 70-189 mg/dL should have their 10 year ASCVD risk estimated with the ACC/AHA ASCVD risk es timator http://tools.acc.org/LXVAO-Trrf-Unpjmise r/ Statin should be discussed if risk great er than or equal to 7.5% in non-diabetics. With diabetes, moderate i ntensity statin is recommended if risk less than 7.5%, high intensity if risk g reater than or equal to 7.5%. Annual lipid monitoring on statins is no t necessary. Evaluate secondary causes of Triglycerid es greater than 500 mg/dL or LDL greater than 190 mg/dL: See table 6 of A CC/AHA Guideline. Lifestyle modification is a critical com ponent of ASCVD risk reduction. Specimen Anatomical Collection Method Collection Time Receive d Time (Source) Location / / Volume Laterality Blood specimen 01/22/2018 12:44 8 (specimen) PM EDT 12:53 PM EDT Resulting Agency Comment Spec In Lab Jeri Lopes MD CHEMISTRY ORDERABLES Performing Organization Address City/State/ZIP Code Phon e Number [address] QuantiFERON-TB Gold (01/22/2018 12:44 PM EDT) Patholo gist Method Time Signature Quantiferon TB Negative Negative [facility] Comment: Nil (IU/mL)=0.056 TB Ag minus Nil (IU/mL)=-0.025 Mitogen minus Nil (IU/mL)=>10 M. tuberculosis (TB) infection NOT likel y ?A negative specimen should have a TB Ag minus Nil value less than 0.35 IU/mL OR a TB Ag minus Nil greater than or equal to 0.35 IU/mL and in addition the TB Ag minus Nil value must be less t gregory 25% of the Nil value. A negative specimen should have a Mitogen minus Nil value greater than or equal to 0.5 IU/mL. ?A negative QuantiFERON-TB Gold IT result does not preclude the possibility of M. tuberculosis infection or tuberculosis disease: false negative results can be due to sta ge of infection (e.g., specimen obtained prior to the development of dottie lular immune response), co-morbid conditions which affect immune function, or other individual immunological factors. ?The performance of the QuantiFERON -TB Gold IT test has not been extensively evaluated with specimens from the follow ing groups of individuals: ?1. Individuals who have impaired o r altered immune function such as those who have HIV infection or AIDS, those wh o have transplantation managed with immunosuppressive treatment or others wh o receive immunosuppressive drugs (e.g., corticosteroids, methotrexate, az athioprine, cancer chemotherapy), and those who have other clinical conditions : diabetes, silicosis, chronic renal failure, hematological disorders (e.g., leukemia and lymphomas), and other specific malignancies (e.g., carcinoma o f the head or neck and lung). ?2. Individuals younger than age 17 years. ?3. women. Note: Diagnosing or excluding tuberculosis dis ease, and assessing the probability of LTBI, require a combination of epidemiol ogical, historical, medical, and diagnostic findings that should be taken into account when interpreting QuantiFERON-TB Gold results. Reference ( http://www.cdc.gov/nchstp/tb/) Specimen Anatomical Collection Method Collection Time Receive d Time (Source) Location / / Volume Laterality Blood specimen 01/22/2018 12:44 8 6:59 (specimen) PM EDT AM EDT Resulting Agency Comment Spec In Lab Jeri Lopes MD CHEMISTRY ORDERABLES Performing Organization Address City/State/ZIP Code Phon e Number [place], [place] [id number] [place] [address] Hepatitis C Antibody (01/22/2018 12:44 PM EDT) Analysis Performed At Patho logist Time Signature Hepatitis C Ab Negative Negative [facility] Specimen Anatomical Collection Method Collection Time Receive d Time (Source) Location / / Volume Laterality Blood specimen 01/22/2018 12:44 8 (specimen) PM EDT 12:53 PM EDT Resulting Agency Comment Spec In Lab Jeri Lopes MD IMMUNOLOGY ORDERABLES Performing Organization Address City/[facility]/[place] [address] Hepatitis B Surface Antigen (01/22/2018 12:44 PM EDT) Analysis Performed At Patho logist Time Signature HepB Surface Negative Negative [facility] LABORATORY Specimen Anatomical Collection Method Collection Time Receive d Time (Source) Location / / Volume Laterality Blood specimen 01/22/2018 12:44 8 (specimen) PM EDT 12:53 PM EDT Resulting Agency Comment Spec In Lab Jeri Lopes MD CHEMISTRY ORDERABLES Performing Organization Address City/[facility] [place] [address] Hepatitis B Surface Antibody (01/22/2018 12:44 PM EDT) P athologist Signature HepB Surface <3.5 IU/L [facility] Ab Quant [facility] Comment: HepB Surface Ab Quant: Unvaccinated: < 8.5 IU/L Vaccinated: > 11.5 IU/L HepB Surface Ab Negative [facility] Comment: Patient is presumed to be not vaccinated or immune to HBV infection. Expected Results: Vaccinated: Positive Unvaccinated: Negative Specimen Anatomical Collection Method Collection Time Receive d Time (Source) Location / / Volume Laterality Blood specimen 01/22/2018 12:44 8 (specimen) PM EDT 12:53 PM EDT Resulting Agency Comment Spec In Lab Jeri Lopes MD IMMUNOLOGY ORDERABLES Performing Organization Address City/[facility]/ZIP Code [place] [address] Hepatitis B Core Antibody, Total (01/22/2018 12:44 PM EDT) Analysis Performed At Patho logist Time Signature Hep B Core Ab Negative Negative [facility] Specimen Anatomical Collection Method Collection Time Receive d Time (Source) Location / / Volume Laterality Blood specimen 01/22/2018 12:44 8 (specimen) PM EDT 12:53 PM EDT Resulting Agency Comment Spec In Lab Jeri Lopes MD CHEMISTRY ORDERABLES Performing Organization Address City/State/[place] [address] (ABNORMAL) Comprehensive metabolic panel (non-fasting) (01/22/2018 12:44 PM EDT) P athologist Signature Glucose Lvl 116 65 - 199 [facility] mg/dL [facility] Comment: Diabetes: >=200 mg/dL plus symp toms BUN 27 (H) 8 - 18 mg/dL [facility] Creatinine 1.12 0.70 - 1.20 mg/dL [facility] Sodium 141 135 - 145 mmol/L [facility] Potassium 4.0 3.5 - 5.0 mmol/L [facility] Comment: Please note: ??Patients with WBC >100,00 0 may have falsely elevated Potassium levels. ??For accurate Potassium quantif ication in these patients send serum separator tube (gold top) for subsequent determinations. ??Contact the Clinical Chemistry Laboratory if there are any qu estions. Chloride 98 98 - 107 mmol/L [facility] CO2 30 22 - 31 mmol/L [facility] Anion Gap 13 5 - 15 mmol/L [facility] Calcium 10.3 8.5 - 10.5 mg/dL [facility] Total Protein 7.4 6.1 - 8.0 gm/dL [facility] Albumin 4.7 3.2 - 5.2 gm/dL [facility] AST 16 0 - 30 unit/L [facility] ALT 49 (H) 0 - 30 unit/L [facility] Alk Phos 47 40 - 104 unit/L [facility] Total Bilirubin 1.0 0.2 - 1.3 mg/dL [facility] Estimated GFR 47 (L) >=60 [facility] Comment: The reported eGFR should be multiplied b y 1.2 for patients. The MDRD is not an appropriate measure o f renal function for patients with body mass extremes or in patients with acute kidney failure. http://[employer]/DHnkdep http://[employer]/DHMCnkf Specimen Anatomical Collection Method Collection Time Receive d Time (Source) Location / / Volume Laterality Blood specimen 01/22/2018 12:44 8 (specimen) PM EDT 12:53 PM EDT Resulting Agency Comment Spec In Lab Jeri Lopes MD CHEMISTRY ORDERABLES Performing Organization Address City/[facility]/ZIP Code Phon e Number [address] CRP, acute inflammation (01/22/2018 12:44 PM EDT) P athologist Signature CRP 1.0 <=4.9 mg/L [facility] Specimen Anatomical Collection Method Collection Time Receive d Time (Source) Location / / Volume Laterality Blood specimen 01/22/2018 12:44 8 (specimen) PM EDT 12:53 PM EDT Resulting Agency Comment Spec In Lab Jeri Lopes MD CHEMISTRY ORDERABLES Performing Organization Address City/[facility]/ZIP Code Phon e Number [address] Sedimentation rate (01/22/2018 12:44 PM EDT) P athologist Signature Sed Rate 12 0 - 20 [facility] mm/hr [facility] Specimen Anatomical Collection Method Collection Time Receive d Time (Source) Location / / Volume Laterality Blood specimen 01/22/2018 12:44 8 (specimen) PM EDT 12:53 PM EDT Resulting Agency Comment Spec In Lab Jeri Lopes MD HEMATOLOGY ORDERABLES Performing Organization Address City/[facility]/ZIP [facility] Phon e Number [address] (ABNORMAL) Rheumatoid factor, quant (01/22/2018 12:44 PM EDT) P athologist Signature RF 17 (H) <=14 IU/mL [facility] Specimen Anatomical Collection Method Collection Time Receive d Time (Source) Location / / Volume Laterality Blood specimen 01/22/2018 12:44 8 (specimen) PM EDT 12:53 PM EDT Resulting Agency Comment Spec In Lab Jeri Lopes MD IMMUNOLOGY ORDERABLES Performing Organization Address [facility] [place] [address] Cyclic Citrullinated Peptide (01/22/2018 12:44 PM EDT) P athologist Signature Anti-Cyc Cit <0.5 <=4.9 [facility] Peptide unit/mL [facility] Comment: An updated CCP assay reagent was impleme nted 01/24/17. Please note the modified reference interval. Specimen Anatomical Collection Method Collection Time Receive d Time (Source) Location / / Volume Laterality Blood specimen 01/22/2018 12:44 8 (specimen) PM EDT 12:53 PM EDT Resulting Agency Comment Spec In Lab Jeri Lopes MD CHEMISTRY ORDERABLES Performing Organization Address City/[facility]/ZIP [facility] Phon e Number [address] documented in this encounter Visit Diagnoses Diagnosis Encounter for monitoring tocilizumab the rapy Encounter for therapeutic drug monitorin g Encounter for monitoring tocilizumab the rapy Encounter for therapeutic drug monitorin g documented in this encounter Care Teams Lead Software Developer Relationship Specialty Start Date End Date Zoey Lucas MD PCP - General 09/05/[address] [place] [address] documented as of this encounter
--- OUTSIDE RECORDS SUMMARY | 2022-07-27 00:18 | XMS_ITS | Encounter Summary ---
:1940 Author Organization [facility] [place] [address] Care Team Providers Name Role Phone Zoey Lucas MD Primary Care Provider Encounter Details Date Type Department Care Team Description 12/26/2016 Telephone Rheumatology at [facility] Isis Lyons, [place] [address] Social History Tobacco Use Types Packs/Day [...] this encounter Miscellaneous Notes Telephone Encounter - Isis Lyons LPN - 12/26/2016 9:23 AM EDT Zeny phones to report that she has giant cell arteritis and is having jaw aching and headache. She is wondering if you want her to increase her prednisone. She is down to 1 mg right now. Denies fever or infection. Please advise. ++++++++++++++++++++ Yes, she should go back to 2mg tomorrow, and if the headache persists, she should go to 3 and call again. With care, Cliff Kline MD ? Previous Messages ++++++++++++++++++++++ I have called to let Zeny know the above message. She states that she has an appointment Saturday with Dr Kline. documented in this encounter Plan of Treatment Not on filedocumented as of this encounter Visit Diagnoses Not on filedocumented in this encounter Care Teams Chainman Relationship Specialty Start Date End Date Zoey Lucas MD PCP - General 09/05/[address] [place] [address] [address] [place] [address] documented as of this encounter
--- OUTSIDE RECORDS SUMMARY | 2022-07-27 00:18 | XMS_ITS | Encounter Summary ---
:1940 Author Organization [facility] [place] [address] Care Team Providers Name Role Phone Zoey Lucas MD Primary Care Provider Reason for Visit Reason Onset Date Comments Other 12/23/2015 Encounter Details Date Type Department Care Team Description 12/23/2015 Telephone Rheumatology at [facility] Cindy H[place]os, [place] [address] Social History Tobacco Use Types Packs/Day [...] this encounter Miscellaneous Notes Telephone Encounter - Cindy Hoyos RN - 12/23/2015 2:49 PM EST Lets stay at 30 for another 2 weeks, then go to 25 for 2 weeks, then 20. ? With care, ? Cliff I spoke with Zeny and she will follow plan outlined above. Telephone Encounter - Cindy Hoyos RN - 12/23/2015 1:57 PM EST Zeny calls today and reports that she has been having H/A over her eyes, Jaw, and neck pain. States she increased Prednisone back to 30 mg from 20 mg today and her symptoms have resolved. Zeny would like to know how to taper Prednisone. documented in this encounter Plan of Treatment Not on filedocumented as of this encounter Visit Diagnoses Not on filedocumented in this encounter Care Teams Rejector Relationship Specialty Start Date End Date Zoey Lucas MD PCP - General 09/05/[address] [place] [address] documented as of this encounter
--- OUTSIDE RECORDS SUMMARY | 2022-07-27 00:18 | XMS_ITS | Encounter Summary ---
:1940 Author Organization [facility] Address [address] [place] [address] Care Team Providers Name Role Phone Zoey Lucas MD Primary Care Provider Encounter Details Date Type Department Care Team Description 08/01/2016 Office Visit Rheumatology at [facility] [place] [phone] GENERAL INTERNAL [phone] MEDICINE [place], [place] [address] (Wo rk) Social History Tobacco [...] Sign Reading Time Taken Comments Blood Pressure 116/55 08/01/2016 2:33 PM EDT Pulse 90 08/01/2016 2:33 PM EDT Temperature 36.2 ??C (97.2 ??F) 08/01/2016 2:33 PM EDT Respiratory Rate 18 08/01/2016 2:33 PM EDT Oxygen Saturation 99% 08/01/2016 2:33 PM EDT Inhaled Oxygen Concentration - - Weight 78 kg (172 lb) 08/01/2016 2:33 PM EDT Height 160 cm (5' 3) 08/01/2016 2:33 PM EDT Body Mass Index 30.47 08/01/2016 2:33 PM EDT documented in this encounter Progress Notes Cliff Kline MD - 08/01/2016 2:45 PM EDT Rheumatology Outpatient Consultation Note Rheum [...] visual changes. She has been on prednisone 6mg for 1 week. She has stable visual changes, occasional headaches, no fevers, chills, scalp tenderness, or jaw claudication. She has no symptoms of PMR at this time. She remains on aspirin and PPI, but is off of bactrim. She was started on reclast by her PCP for steroid prophylaxis and tolerated it well. Currently on 6mg going down to 5 next week. Her only complaint is about a month of increasing back pain, worse with standing and walking, no history of trauma, the pain is mostly over the left lumbar and trochanteric area. She has been doing yoga and improving her mobility. Seen by religion department chair a few weeks ago, who says cataracts are getting worse, likely due to steroids, and she is concerned about this affecting her driving, so she still has friends driving her around. Has also had a few months of perioral numbness, that has not worsened or gotten better. 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 Meds: reviewed All: beta blockers FHx: melanoma- mother MGMA: kidney Ca Father- cva ROS: No wt loss, no NS No CP No SOB No GI No Physical Examination: BP 116/55 Pulse 90 Temp 36.2 ??C (97.2 ??F) Resp 18 Ht 160 cm (5' 3) Wt 78 kg (172 lb) SpO2 99% BMI30.47 kg/m2 General: NAD, AAOx3 HEENT: NC/AT,non tender left jaw, no palpable cords, +temporal artery pulsations Skin: No rashes Neck: supple Cardiovascular: S1S2, 3/6 sys murmur at base Lungs: CTA b/l Abdomen: ND, NT Neuro: Grossly intact Left hip tenderness over trochanteric bursa, fROM Laboratory Data: Last 3 wbc, hgb, hct plt Recent Labs 03/27/16 1708 10/27/15 0356 10/26/15 0629 WBC 9.8 10.8* 12.3* HGB 12.5 11.7 11.5 HCT 37.4 34.7 34.2 PLATELET 311 386* 380* Last 3 Lytes Recent Labs 03/27/16 1708 10/27/15 0356 10/26/15 0629 NA 139 133* 133* K 3.9 4.4 3.8 CL 97* 93* 94* CO2 29 25 26 BUN 19* 30* 30* CREATININE 1.01 1.14 1.07 Last 3 LFTs Recent Labs 03/27/16 1708 AST 13 ALT 24 ALKPHOS 42 BILITOT 0.5 BILIDIR 0.1 Last CRP, SEDRATE Recent Labs 08/01/16 1236 CRP 0.8 SEDRATE 11 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 female who presents today for follow up of GCA. Her symptoms of back pain seem most related to steroid withdrawal and back strain, along with some trochanteric bursitis. If her pain level continues we would do plain films to ensure no vertebral fracture, and would also consider a trochateric bursal injection. Regarding her perioral numbness, this does not seem related to her GCA, and her inflammatory markers remains low, so we would chcek for electrolyte abnormalities, and will add these on to her prior blood draw from today. She has no symptoms of GCA or PMR, so we will continue to taper her prednisone as planned. #GCA -prednisone 6mg taper by 1mg every 4 weeks - cont ASA prophylaxis - cont to monitor for recurrence, may increase prednisone and call us if symptoms flare #CVA prophylaxis -ASA 81 daily #Osteoprotection - DEXA scan normal 2015 - continue on Ca and Vit D - Had reclast infusion 01/2016 Follow-up 3 months CC: MD Cliff LOCKETT MD 08/01/2016 documented in this encounter Plan of Treatment Not on filedocumented as of this encounter Visit Diagnoses Diagnosis Numbness Disturbance of skin sensation documented in this encounter Care Teams Vp Platforms Relationship Specialty Start Date End Date Zoey Lucas MD PCP - General 09/05/[address] [place] [address] documented as of this encounter
--- OUTSIDE RECORDS SUMMARY | 2022-07-27 00:18 | XMS_ITS | Encounter Summary ---
:1940 Author Organization [facility] Address [address] [place] [address] Care Team Providers Name Role Phone Zoey Lucas MD Primary Care Provider Reason for Visit Reason Comments Medication Refill Encounter Details Date Type Department Care Team Description 02/21/2016 Refill Rheumatology at [facility] Cliff Kline MD [facility] Lizet carbajal [facility] [place] [phone] GENERAL INTERNAL MEDICINE [phone] [place], [place] [address] (Wo rk) Social History Tobacco [...] on filedocumented in this encounter Care Teams Electronics Worker Relationship Specialty Start Date End Date Zoey Lucas MD PCP - General 09/05/10 [facility] [address] [place] [address] documented as of this encounter
--- OUTSIDE RECORDS SUMMARY | 2022-07-27 00:18 | XMS_ITS | Encounter Summary ---
:1940 Author Organization [facility] [place] [address] Care Team Providers Name Role Phone Zoey Lucas MD Primary Care Provider Reason for Visit Reason Onset Date Comments Post Op Post Op 12/13/2016 Encounter Details Date Type Department Care Team Description 12/13/2016 Office Visit [facility], Status post cataract extract ion and insertion of intraocular lens, right; [facility] MD [address] [address] CENTER [phone] OPHTHALMOLOGY DEPT [place], [place] [address] Social History Tobacco Use Types [...] as of this encounter Patient Instructions Patient InstructionsPrimo Rodríguez MD - 12/13/2016 11:39 AM EST Instructions Following Cataract Eye Surgery Section of Ophthalmology [facility] 1) AVOID EYE INJURIES: Following eye surgery your eye is more susceptible to injuries. Therefore, special attention has to be given to preventing an accidental injury. - Do not rub the operative eye. - Do not engage in any activities that could result in a blow to the eye. - Do not engage in any heavy physical activities that cause you to strain, such as bending or lifting. 2) CALL THE EYE CLINIC WITH ANY WORSENING PAIN, REDNESS, NEW FLASHES, NEW FLOATERS OR DECREASING VISION: There is always a doctor physician relations manager at the eye clinic if you develop a problem as described above, especially in the first 14 days following surgery. 3) USE THE PRESCRIBED EYE DROPS AND BRING THEM TO FOLLOW UP APPOINTMENTS Beginning today: - Stop using the Moxifloxicin (Vigamox) 0.5% - Prednisolone acetate (pink cap) (Shake before using) 1 drop right eye 3 times a day for 7 days, then 1 drop right eye 2 times a day for 7 days, then 1 drop right eye once a day for 7 days, then stop - Ketorolac (osorio cap) 1 drop right eye 4 times a day until the bottle runs out. documented in this encounter Progress Notes Primo Rodríguez MD - 12/13/2016 11:39 AM EST Assessment: No diagnosis found. Zeny Joe is s/p cataract surgery ~1 week in her right eye. Doing well with a normal 1 week post-operative appearance. Temporal suture removed at slit lamp today, vigamox instilled pre and post suture removal Plan: - Prednisolone acetate 1% tid OD for 7 days, then bid OD for 7 days, then qd OD for 7 days. - d/c Moxifloxicin - Ketorolac qid in OD until the bottle runs out. - Post op precaution sheet and new medication directions reviewed and given to patient. Follow Up: 1 Month or as needed. Upon return: IOP OU MR operative eye Dilate documented in this encounter Plan of Treatment Not on filedocumented as of this encounter Visit Diagnoses Diagnosis Status post cataract extraction and inse rtion of intraocular lens, right Pseudophakia Lens replaced by other means documented in this encounter Care Teams Ventilating Expert Relationship Specialty Start Date End Date Zoey Lucas MD PCP - General 09/05/[address] [place] [address] documented as of this encounter
--- OUTSIDE RECORDS SUMMARY | 2022-07-27 00:18 | XMS_ITS | Encounter Summary ---
:1940 Author Organization [facility] Address [facility] [address] [place] [address] Care Team Providers Name Role Phone Zoey Lucas MD Primary Care Provider Reason for Visit Reason Onset Date Comments Other 08/07/2016 Patient called to [facility] if she could be placed on a wait list for a sooner appointment. Feels that her symptoms are getting worse but not to the point of being seen urgently. I informed her that we do not have a wait list at the moment but she desired a note to be sent off. Following up with patient's request. Encounter Details Date Type Department Care Team Description 08/07/2016 Telephone Ophthalmology at [facility] David Morillo (Patient called [facility] Lizet Tillman [place] [address] [facility] placed on a wait list [phone] DR for a sooner OPHTHALMOLOGY DE PT appointment. Feels [place], [place] [address] that her symptoms are [phone] getting worse b ut not (Work) to the point of being seen kelvin pringle. I informed her th at we do not have a w ait list at the mom ent but she desired a n ote to be sent off. Fo llowing up with patient 's request.) Social History Tobacco Use Types Packs/Day Years [...] this encounter Miscellaneous Notes Telephone Encounter - Mary Mullen - 08/07/2016 10:03 AM EDT Patient called to see if she could be placed on a wait list for a sooner appointment. Feels that hersymptoms are getting worse but not to the point of being seen urgently. I informed her that we do not have a wait list at the moment but she desired a note to be sent off. Following up with patient's re quest. documented in this encounter Plan of Treatment Not on filedocumented as of this encounter Visit Diagnoses Not on filedocumented in this encounter Care Teams Silica Dry Press Helper Relationship Specialty Start Date End Date Zoey Lucas MD PCP - General 09/05/[address] [place] [address] documented as of this encounter
--- OUTSIDE RECORDS SUMMARY | 2022-07-27 00:18 | XMS_ITS | Encounter Summary ---
:1940 Author Organization [facility] [place] [address] Care Team Providers Name Role Phone Zoey Lucas MD Primary Care Provider Reason for Visit Reason Comments Cataract Temporal Arteritis Encounter Details Date Type Department Care Team Description 11/20/2016 Office Visit Ophthalmology at [facility] [place], Age-related nuclear [facility] MD Primo cataract, [place] [address] CENTER [phone] OPHTHALMOLOGY DEPT [place], [place] [address] Social History Tobacco Use Types [...] encounter Progress Notes Primo Rodríguez MD - 11/20/2016 12:30 PM EST Zeny Joe has visually significant cataract interfering with visual tasks. We discussed the risks, benefits and alternatives to cataract surgery. Zeny expressed understanding and is keen to pursue cataract surgery in her Right eye with a monofocal IOL. she denies any history of amblyopia, patching or strabismus surgery in the past. No history of trauma or Flomax use. No PXE or phacodenesis noted on exam. Target Refraction: [place] to -0.50 Discussed that this is an estimate and that there would likely be a post operative need for glasses to achieve best vision. Type of Cataract: 2+ NSC Special surgical issues: Hx of GCA - vision loss OS Anesthesia: IVCS, topical Dilation: 6.5mm Allergies: Allergies Allergen Reactions ??? Beta-Blockers (Beta-Adrenergic Blocking Agts) ??? Doxazosin Mesylate ??? Lisinopril ??? Nickel Surgical orders entered Surgical consent signed POM and surgical coordination initiated Call prn any problems or questions. documented in this encounter Plan of Treatment Not on filedocumented as of this encounter Visit Diagnoses Diagnosis Age-related nuclear cataract, bilateral Senile nuclear sclerosis documented in this encounter Care Teams Account Information Clerk Relationship Specialty Start Date End Date Zoey Lucas MD PCP - General 09/05/[address] [place] [address] documented as of this encounter
--- OUTSIDE RECORDS SUMMARY | 2022-07-27 00:18 | XMS_ITS | Encounter Summary ---
:1940 Author Organization [facility] [place] [address] Care Team Providers Name Role Phone Zoey Lucas MD Primary Care Provider Encounter Details Date Type Department Care Team Description 01/05/2016 Laboratory Appointment Lab 3L Yuki Gonzales GCA (giant cell [facility] arteritis) [place] [id number] Social History Tobacco Use Types Packs/Day Years [...] Date/Time Associated Comments Diagnosis SEDIMENTATION RATE Routine 01/05/2016 12:06 GCA (giant cell Re sults for this PM EDT arteritis) procedure are i n the results section. CRP, CARDIAC RISK (HS Routine 01/05/2016 12:06 GCA (giant cell Results for this CRP) PM EDT arteritis) procedure are i n the results section. documented in this encounter Results Sedimentation rate (01/05/2016 12:06 PM EDT) P athologist Signature Sed Rate 12 0 - 20 [facility] mm/hr [facility] Specimen Anatomical Collection Method Collection Time Receive d Time (Source) Location / / Volume Laterality Blood specimen 01/05/2016 12:06 6 (specimen) PM EDT 12:31 PM EDT Resulting Agency Comment Spec In Lab Fahad Field MD HEMATOLOGY ORDERABLES Performing Organization Address City/State/[place] [address] High Sensitivity CRP (01/05/2016 12:06 PM EDT) athologist Signature CRP High Sens 0.9 mg/L [facility] Comment: Interpretations: 1) For [...] Location / / Volume Laterality Blood specimen 01/05/2016 12:06 6 (specimen) PM EDT 12:31 PM EDT Resulting Agency Comment Spec In Lab Fahad Field MD CHEMISTRY ORDERABLES Performing Organization Address City/State/[place] [address] documented in this encounter Visit Diagnoses Diagnosis GCA (giant cell arteritis) Giant cell arteritis documented in this encounter Care Teams Insect Control Aide Relationship Specialty Start Date End Date Zoey Lucas MD PCP - General 09/05/[address] [place] [address] documented as of this encounter
--- OUTSIDE RECORDS SUMMARY | 2022-07-27 00:18 | XMS_ITS | Encounter Summary ---
:1940 Author Organization [facility] Address [address] [place] [address] Care Team Providers Name Role Phone Zoey Lucas MD Primary Care Provider Encounter Details Date Type Department Care Team Description 02/13/2017 Office Visit Rheumatology at [facility] Cliff Kline MD GCA (giant cell [facility] art eritis) [place] [address] GENERAL INTERNAL [phone] MEDICINE [place], [place] [address] Social History Tobacco Use Types [...] Sign Reading Time Taken Comments Blood Pressure 140/68 02/13/2017 3:20 PM EDT Pulse 78 02/13/2017 3:20 PM EDT Temperature - - Respiratory Rate 16 02/13/2017 3:20 PM EDT Oxygen Saturation 96% 02/13/2017 3:20 PM EDT Inhaled Oxygen Concentration - - Weight 78.5 kg (173 lb) 02/13/2017 3:20 PM EDT Height 160 cm (5' 3) 02/13/2017 3:20 PM EDT Body Mass Index 30.65 02/13/2017 3:20 PM EDT documented in this encounter Progress Notes Cliff Kline MD - 02/13/2017 3:30 PM EDT Rheumatology Outpatient Consultation Note Rheum history GCA biopsy proven with visual changes - pulsed IV steroids x 3 days 10/27/15 - prednisone taper starting 60mg daily 10/27/15 - PJP prophylaxis stopped at pred ~01/2016 Interval: Zeny Joe is a 76 y.o. female with h/o HTN, depression who is here for f/u of biopsy proven GCA with visual changes. At last visit, because of recurrent jaw pain and temporal headache, despite normal inflammatory markers, we increased her prednisone back to 5mg, and have stayed at that dose since. Her headaches are gone, and she has not had any visual changes. She still occasionally experiences jaw pain, but less often than before. She is not having any side effects from her prednisone, and continues on aspiring, calcium and vitamin D. She is going to have labs checked today after our visit. No other new complaints, or recurrence of headaches, no new PMR symptoms. 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 female who presents today for follow up of GCA. With the increase in prednisone to 5mg, most of her symptoms exept for mild jaw symptoms are improved, so we will follow her ESR and CRP and continue prednisone to 5mg until next visit. She knows to continue to monitor for sudden changes in vision, headaches and fevers and to call us immediately should that occur. #GCA -prednisone 5mg increased from 2mg - cont ASA prophylaxis - cont to monitor for recurrence, may increase prednisone and call us if symptoms flare #CVA prophylaxis -ASA 81 daily #Osteoprotection - DEXA scan normal 2015 - continue on Ca and Vit D - Had reclast infusion 01/2016, now on only 5mg of prednisone, will discuss at next visit if we will repeat reclast infusion Follow-up 3 months CC: MD Cliff Martinez MD 02/13/2017 Sukhdev Duke MD - 02/13/2017 3:30 PM EDT RHEUMATOLOGY ATTENDING NOTE: I reviewed Rheumatology Fellow Dr. Cliff Kline's clinic note without participating in the clinicalcare of this pt. Sukhdev Duke MD PhD documented in this encounter Plan of Treatment Not on filedocumented as of this encounter Procedures Procedure Name Priority Date/Time Associated Diagnosis Comme nts SEDIMENTATION RATE Routine 02/13/2017 4:27 PM GCA (giant cell Results for this EDT arteritis) procedure are i n the results section. documented in this encounter Results Sedimentation rate (02/13/2017 4:27 PM EDT) P athologist Signature Sed Rate 18 0 - 20 [facility] mm/hr [facility] Specimen Anatomical Collection Method Collection Time Receive d Time (Source) Location / / Volume Laterality Blood specimen 02/13/2017 4:27 PM 017 4:35 (specimen) EDT PM EDT Resulting Agency Comment Spec In Lab Sukhdev Duke MD HEMATOLOGY ORDERABLES Performing Organization Address City/State/[place] [address] documented in this encounter Visit Diagnoses Diagnosis GCA (giant cell arteritis) Giant cell arteritis documented in this encounter Care Teams Investment Consultant Relationship Specialty Start Date End Date Zoey Lucas MD PCP - General 09/05/[address] [place] [address] documented as of this encounter
--- OUTSIDE RECORDS SUMMARY | 2022-07-27 00:18 | XMS_ITS | Encounter Summary ---
:1940 Author Organization [facility] [place] [address] Care Team Providers Name Role Phone Zoey Lucas MD Primary Care Provider Reason for Visit Reason Comments Temporal Arteritis GCA with vision loss OS Encounter Details Date Type Department Care Team Description 03/27/2016 Office Visit Ophthalmology at [facility] Anabela Rodríguez, Giant cell arteritis (Primar y Dx); [facility] MD [place] [address] CENTER [phone] [place] [address] Social History Tobacco Use Types [...] encounter Progress Notes Primo Rodríguez MD - 03/27/2016 2:23 PM EDT Zeny Joe is a 75 y.o. female [...] TA biopsy positive. On steroids per rheumatology. On examination today, Zeny Joe normal vision in the right eye. Her left eye demonstrated reduced visual function, absent color vision, with a dense left relative afferent pupillary defect. Staticvisual ochoa show a temporal peripheral field defect on the right, stable from prior ochoa. And a large nasal depressed field in the left, with a large stimulus used. 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 Her labs from today are normal (ESR of 9). She will follow her taper schedule per rheumatology. Given her stability - recommend 6 month follow up. MRI brain/orbits revealed enlarged extraocular muscles - TSH ordered is mildly elevated. This is likely thyroid related. Her TSH and free T4 is normal. Given that she is asymptomatic, without any diplopia- no acute management. Findings discussed with Zeny Joe today and she has expressed understanding. She will call me if she has any further concerns. For Follow up Visit 6 mths shabnam WISDOM OCT documented in this encounter Miscellaneous Notes Assessment & Plan Note - Primo Rodríguez MD - 03/27/2016 2:22 PM EDT Associated Problem(s): Giant cell arteritis Noted vision loss in the left eye early October. My examination revealed PION in the left eye. She was admitted for IV steroids after developing some peripheral right eye changes. Elevated ESR, subsequent TA biopsy positive. On steroids per rheumatology. On examination today, Zeny Melara Glades normal vision in the right eye. Her left eye demonstrated reduced visual function, absent color vision, with a dense left relative afferent pupillary defect. Staticvisual ochoa show a temporal peripheral field defect on the right, stable from prior ochoa. And a large nasal depressed field in the left, with a large stimulus used. 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 Her labs from today are normal (ESR of 9). She will follow her taper schedule per rheumatology. Given her stability - recommend 6 month follow up. MRI brain/orbits revealed enlarged extraocular muscles - TSH ordered is mildly elevated. This is likely thyroid related. Her TSH and free T4 is normal. Given that she is asymptomatic, without any diplopia- no acute management. documented in this encounter Plan of Treatment Not on filedocumented as of this encounter Procedures Procedure Name Priority Date/Time Associated Diagnosis Comme nts OCT OPTIC NERVE - Routine 03/27/2016 2:23 PM Visual field defe cts Results for this OU - BOTH EYES EDT procedure are in the results section. AUTOMATED VISUAL Routine 03/27/2016 2:22 PM Giant cell arterit is Results for this FIELD - EXTENDED - EDT procedure are in OU- BOTH EYES the results section. documented in this encounter Results OCT OPTIC [id number] EYES (03/27/2016 2:23 PM EDT) Anatomical Region Laterality Modality Other Specimen (Source) Anatomical Location Collection Method / Collectio n Time Received Time / Laterality Volume Narrative 03/27/2016 2:23 PM EDT error Primo Rodríguez MD OPHTHALMOLOGY SERVICES ORD ERABLES AUTOMATED VISUAL FIELD - EXTENDED - OU- BOTH EYES (03/27/2016 2:22 PM EDT) Anatomical Region Laterality Modality Other Specimen (Source) Anatomical Location Collection Method / Collectio n Time Received Time / Laterality Volume Narrative 03/27/2016 2:22 PM EDT temporal dep pts OD, Central scotoma OS Primo Rodríguez MD OPHTHALMOLOGY SERVICES ORD ERABLES documented in this encounter Visit Diagnoses Diagnosis Giant cell arteritis - Primary Visual field defects Visual field defect, unspecified documented in this encounter Care Teams Intensive Care Nurse Relationship Specialty Start Date End Date Zoey Lucas MD PCP - General 09/05/[address] [place] [address] documented as of this encounter
--- OUTSIDE RECORDS SUMMARY | 2022-07-27 00:18 | XMS_ITS | Encounter Summary ---
:1940 Author Organization [facility] Address [address] [place] [address] Care Team Providers Name Role Phone Zoey Lucas MD Primary Care Provider Reason for Visit Reason Comments Temporal Arteritis GCA with vision loss OS Encounter Details Date Type Department Care Team Description 01/25/2016 Office Visit Ophthalmology at [facility] Jose, Vision loss, left eye; [facility] MD Primo Visual field defects; Drive [facility] [place] [address] CENTER [phone] OPHTHALMOLOGY DEPT [place], [place] [address] Social History Tobacco Use Types [...] encounter Progress Notes Primo Rodríguez MD - 01/25/2016 10:25 AM EDT Zeny Joe is a 75 y.o. female with the following medical problems; Past Medical History Diagnosis Date ??? Allergic state ??? Asthma ??? Anxiety ??? Hypertension ??? Chronic kidney disease single kidney ??? Skin disease ??? 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 Giant cell arteritis 10/2015 ??? Arthritis RHEUMATOID Assessment and Plan: Giant cell arteritis Noted [...] any further concerns. For Follow up Visit 2 months HVF documented in this encounter Miscellaneous Notes Assessment & Plan Note - Primo Rodríguez MD - 01/25/2016 10:25 AM EDT Associated Problem(s): Giant cell arteritis Noted vision loss in the left eye early October. My examination revealed PION in the left eye. She was admitted for IV steroids after developing some peripheral right eye changes. Elevated ESR, subsequent TA biopsy positive. On steroids per rheumatology. On examination today, Zeny Melara Tatyana normal vision in the right eye. Her [...] Comme nts OCT OPTIC NERVE - Routine 01/25/2016 10:20 AM Visual field def ects Results for this OU - BOTH EYES EDT procedure are in the results section. AUTOMATED VISUAL Routine 01/25/2016 10:19 AM Vision loss, left Results for this FIELD - EXTENDED - EDT eye procedure are in OU- BOTH EYES the results section. documented in this encounter Results OCT OPTIC [id number] EYES (01/25/2016 10:20 AM EDT) Anatomical Region Laterality Modality Other Specimen (Source) Anatomical Location Collection Method / Collectio n Time Received Time / Laterality Volume Narrative 01/25/2016 10:20 AM EDT Nasal thinning OS, overall thin OS Primo Rodríguez MD OPHTHALMOLOGY SERVICES ORD ERABLES AUTOMATED VISUAL FIELD - EXTENDED - OU- BOTH EYES (01/25/2016 10:19 AM EDT) Anatomical Region Laterality Modality Other Specimen (Source) Anatomical Location Collection Method / Collectio n Time Received Time / Laterality Volume Narrative 01/25/2016 10:20 AM EDT Peripheral temporal defect OD, nasal def ect OS Primo Rodríguez MD OPHTHALMOLOGY SERVICES ORD ERABLES documented in this encounter Visit Diagnoses Diagnosis Vision loss, left eye Unqualified visual loss, one eye Visual field defects Visual field defect, unspecified Giant cell arteritis documented in this encounter Care Teams Offset Printer Relationship Specialty Start Date End Date Zoey Lucas MD PCP - General 09/05/[address] [place] [address] documented as of this encounter
--- OUTSIDE RECORDS SUMMARY | 2022-07-27 00:18 | XMS_ITS | Encounter Summary ---
:1940 Author Organization [facility] [address] Care Team Providers Name Role Phone Zoey Lucas MD Primary Care Provider Encounter Details Date Type Department Care Team Description 12/15/2015 Laboratory Appointment Lab 3L Yuki Gonzales GCA (giant cell [facility] arteritis) [place] [id number] Social History Tobacco Use Types Packs/Day Years [...] Date/Time Associated Comments Diagnosis SEDIMENTATION RATE Routine 12/15/2015 9:14 AM GCA (giant cell Results for this EST arteritis) procedure are i n the results section. CRP, CARDIAC RISK (HS Routine 12/15/2015 9:14 AM GCA (giant ce ll Results for this CRP) EST arteritis) procedure are i n the results section. documented in this encounter Results Sedimentation rate (12/15/2015 9:14 AM EST) P athologist Signature Sed Rate 16 0 - 20 [facility] mm/hr [facility] Specimen Anatomical Collection Method Collection Time Receive d Time (Source) Location / / Volume Laterality Blood specimen 12/15/2015 9:14 AM 016 9:25 (specimen) EST AM EST Resulting Agency Comment Spec In Lab Christian Kelly MD HEMATOLOGY ORDERABLES Performing Organization Address City/State/[place] [address] High Sensitivity CRP (12/15/2015 9:14 AM EST) P athologist Signature CRP High Sens 0.8 mg/L [facility] Comment: Interpretations: 1) For accurate [...] Location / / Volume Laterality Blood specimen 12/15/2015 9:14 AM 016 9:25 (specimen) EST AM EST Resulting Agency Comment Spec In Lab Christian Kelly MD CHEMISTRY ORDERABLES Performing Organization Address City/State/ZIP [place] [address] documented in this encounter Visit Diagnoses Diagnosis GCA (giant cell arteritis) Giant cell arteritis documented in this encounter Care Teams Careers Adviser Relationship Specialty Start Date End Date Zoey Lucas MD PCP - General 09/05/[address] [place] [address] documented as of this encounter
--- OUTSIDE RECORDS SUMMARY | 2022-07-27 00:19 | XMS_ITS | Encounter Summary ---
:1940 Author Organization [facility] [place] [address] Care Team Providers Name Role Phone Zoey Lucas MD Primary Care Provider Encounter Details Date Type Department Care Team Description 10/25/2015 Ophth Exam Ophthalmology at [facility] [place] [address] [facility] [phone] OPHTHALMOLOGY [place], [place] [address] (Wo rk) Social History Tobacco [...] on filedocumented in this encounter Care Teams General Freight Agent Relationship Specialty Start Date End Date Zoey Lucas MD PCP - General 09/05/10 [facility] [address] [place] [address] documented as of this encounter
--- OUTSIDE RECORDS SUMMARY | 2022-07-27 00:19 | XMS_ITS | Encounter Summary ---
:1940 Author Organization [facility] Address [address] [place] [address] Care Team Providers Name Role Phone Zoey Lucas MD Primary Care Provider Encounter Details Date Type Department Care Team Description 12/15/2015 Office Visit Rheumatology at [facility] Cliff Kline MD GCA (giant cell [facility] [place] [phone] GENERAL INTERNAL [phone] MEDICINE [place], [place] [address] Social History Tobacco Use Types [...] Sign Reading Time Taken Comments Blood Pressure 153/81 12/15/2015 12:03 PM EST Pulse 109 12/15/2015 12:03 PM EST Temperature 36.5 ??C (97.7 ??F) 12/15/2015 12:03 PM EST Respiratory Rate - - Oxygen Saturation 99% 12/15/2015 12:03 PM EST Inhaled Oxygen Concentration - - Weight 73.9 kg (163 lb) 12/15/2015 12:03 PM EST Height 160 cm (5' 3) 12/15/2015 12:03 PM EST Body Mass Index 28.87 12/15/2015 12:03 PM EST documented in this encounter Patient Instructions Patient InstructionsCliff Kline MD - 12/15/2015 12:48 PM EST Decrease prednisone to 20mg in 1 week, then by 2.5mg every 2 weeks until on 10 mg Stop bactrim once at 20mg of prednisone for one week Labs every 4 weeks F/u here in 3 months documented in this encounter Progress Notes Sonido Morrison MD - 12/16/2015 8:44 AM EST I have seen the patient and reviewed the fellow's above history and I agree with the details as written. The assessment and plan were formulated in discussion with me and I agree with them as documented. Ms. Joe is doing okay with the GCA. We are going to continue tapering prednisone down to 20mg, and then slow down the taper at that point. We have emphasized the importance of calling if she has return of symptoms. Cliff Kline MD - 12/15/2015 12:12 PM EST Rheumatology Outpatient Consultation Note Rheum history GCA biopsy proven with visual changes - pulsed IV steroids x 3 days 10/27/15 - prednisone taper starting 60mg daily 1/14/16 Interval: Zeny Joe is a 75 y.o. female with h/o HTN, depression who is here for f/u of biopsy proven GCA with visual changes. She has been on prednisone 30mg for 1 week, having tapered from 60mg since 10/27/15. She has stable visual changes, no headaches, fevers, chills, scalp tenderness, or jaw c laudication. She has no symptoms of PMR at this time. She is having some agitation, decreased sleep, increased appetite from the prednisone, increased fernandez face. She is tolerating the other medications that were started in the hospital, and is not having any ill effects from the bactrim, aspirin or other regular medications. She continues to f/u with Dr Rodríguez and has stable visual findings. 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 female who presents today for follow up of GCA. Her symptoms are clearlyimproved on 30mg of prednisone, and her inflammatory markers continue to be suppressed as well. We will taper her from 30mg daily after 2 weeks to 20mg, and then slow the taper to 2.5mg every 2 weeks. She knows to call us immediately if any of her symptoms recur and to go back to the last effective dose of prednisone. She will concurrently be stopped on bactrim for PJP prophylaxis when she reaches 20mg of prednisone. #GCA -prednisone 20mg taper -temporal biopsy positive -check inflammatory markers every 4 weeks until next visit #CVA prophylaxis -ASA 81 daily #PJP prophylaxis - bactrim 3 times weekly - may stop once on prednisone 20mg #Osteoprotection - PCP is planning on DEXA and bisphosphonate therapy in addition to current Ca Vit D supplementation, which we agree with Follow-up 3 months CC: ZOEY LUCAS MD Case seen and discussed with Dr Prince KLINE MD 12/15/2015 documented in this encounter Plan of Treatment Not on filedocumented as of this encounter Visit Diagnoses Diagnosis GCA (giant cell arteritis) Giant cell arteritis documented in this encounter Care Teams Cup Machine Operator Relationship Specialty Start Date End Date Zoey Lucas MD PCP - General 09/05/[address] [place] [address] documented as of this encounter
--- OUTSIDE RECORDS SUMMARY | 2022-07-27 00:19 | XMS_ITS | Encounter Summary ---
:1940 Author Organization [facility] Address [address] [place] [address] Care Team Providers Name Role Phone Zoey Lucas MD Primary Care Provider Encounter Details Date Type Department Care Team Description 11/30/2010 Follow-Up Allergy at [facility] Bart Andrews MD [facility] [place] [address] ALLERGY AND IMMUNOLOGY [phone] [place], [place] [address] (Wo rk) Social History Tobacco Use Types Packs/Day Years Used Date Never Assessed Sex Assigned at Date Recorded Female 02/10/2021 8:25 AM EDT documented as of this encounter Plan of Treatment Not on filedocumented as of this encounter Visit Diagnoses Not on filedocumented in this encounter Care Teams Order Packer Or Packager Relationship Specialty Start Date End Date Zoey Lucas MD PCP - General 09/05/[address] [place] [address] documented as of this encounter
--- OUTSIDE RECORDS SUMMARY | 2022-07-27 00:19 | XMS_ITS | Encounter Summary ---
:1940 Author Organization [facility] [place] [address] Care Team Providers Name Role Phone Zoey Lucas MD Primary Care Provider Reason for Visit Reason Comments Skin Lesion Encounter Details Date Type Department Care Team Description 03/11/2012 Office Visit Dermatology Juan Beck, Seborrheic keratosis [address] [facility] Jose Manuel ARCINIEGA (Primary Dx) [address] [place], [place] DERMATOLOGY [address] [place] [address] [phone] (Wo rk) Social History Tobacco Use Types Packs/Day Years Used Date Never Smoker Sex Assigned at Date Recorded Female 02/10/2021 8:25 AM EDT documented as of this encounter Progress Notes Juan Beck MD - 03/11/2012 10:47 AM EDT Problem: Left temporal lesion. Zeny follows up after last being seen in my office in February 2010. 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 She is on hydroxyzine in the evening and has Catie and Zyrtec to take during the day. She is concerned about a growing mole in the right episcopalian area that a hairdresser noted and pointed out to her that it had been growing. There is a history of malignant melanoma in her mother who of her disease. Zeny wants to be sure this is not melanoma. Recently the patient tried to stop her antihistamines but started to again develop dermatitis. 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 Physical examination reveals a pleasant, 71-year-old woman who has a waxy, [id number]-[id number]-aazahhiba seborrheic keratosis, which is 5 x 10 mm in the right episcopalian area within her hairline. Examination of the face, the left episcopalian, the forehead, hands, arms, and forearms is otherwise benign. She has no active dermatitis. Assessment and Plan: Seborrheic keratosis. a. Patient reassured about benign seborrheic keratoses. b. Discussed the option of removal; but as it is asymptomatic, small, and she is totally unaware of it otherwise, the patient defers its removal today. c. The patient has no personal history of skin cancer or melanomas. I recommended return to the clinic p.r.n. for new lesions/concerns. Copy: Zoey Lucas M.D. documented in this encounter Plan of Treatment Not on filedocumented as of this encounter Visit Diagnoses Diagnosis Seborrheic keratosis - Primary Other seborrheic keratosis documented in this encounter Care Teams Gaming Floor Supervisor Relationship Specialty Start Date End Date Zoey Lucas MD PCP - General 09/05/[address] [place] [address] documented as of this encounter
--- OUTSIDE RECORDS SUMMARY | 2022-07-27 00:19 | XMS_ITS | Encounter Summary ---
:1940 Author Organization [facility] [place] [address] Care Team Providers Name Role Phone Zoey Lucas MD Primary Care Provider Reason for Referral Diagnostic Test (Routine) - Specialty Diagnoses / Procedures Referred By Contact Refer red To Contact Radiology Diagnoses Vision loss of left eye [facility] Rad Mri Procedures MRI Orbit With/[place] [address] [place] [address] Referral ID Status Reason Start Date Expiration Visits Visits Date Requested Authorized [id number] Specialty 10/20/2015 10/19/2016 1 1 Service Requested Diagnostic Test (Routine) - Closed Specialty Diagnoses / Procedures Referred By Contact Refer red To Contact Radiology Diagnoses Vision loss of left eye [facility] Rad Mri Procedures MRI Brain With/WO Contrast (GENERIC) [place] [address] [place] [address] Referral ID Status Reason Start Date Expiration Date Visits V isits Requested Authorized [id number] Closed Specialty 10/20/2015 10/19/2016 1 1 Service Requested Reason for Visit Auth/Cert Specialty Diagnoses / Procedures Referred By Contact Refer red To Contact Diagnoses Giant cell arteritis headaches, r/o temporal arteritis Procedures LIGATION OR BIOPSY, TEMPORAL ARTERY Referral ID Status Reason Start Date Expiration Date Visits Requ ested Visits Authorized [id number] 1 1 Encounter Details Date Type Department Care Team Description 10/22/2015 Hospital Encounter MRI at [facility] Marcos, Vision loss of left [facility] MD Primo [facility] [address] OPHTHALMOLOGY [phone] [place] [address] Social History Tobacco Use Types Packs/Day Years Used Date Former Smoker Quit: 10/20/18 84 Alcohol Use Standard Drinks/Week Comments Yes 0 (1 standard drink = 0.6 oz pure alcoho l) Sex Assigned at Date Recorded Female 02/10/2021 8:25 AM EDT documented as of this encounter Medications at Time of Discharge Medication Sig Dispensed Refills Start Date End Date cholecalciferol, Vitamin D3, 2,000 Units 0 2012 25 mcg (1,000 unit) Capsule daily. escitalopram oxalate Take 10 mg by 0 (LEXAPRO) 10 mg Tablet mouth daily. CALCIUM CARBONATE/VITAMIN D3 Take 1,200 mg by 0 (VITAMIN D-3 ORAL) mouth daily. hydrocortisone 2.5 % cream 1 Appl(s), Top, 0 12/12 Twice daily triamcinolone (KENALOG) 0.1 Apply topically 0 % ointment as needed. hydrochlorothiazide 25 MG = 1 0 12/26/201011/19 (HYDRODIURIL) 25 mg tablet Tablet(s), PO, QAM CALCIUM CARBONATE (CALTRATE Take 1,200 mg by 0 02/13/2017 600 ORAL) mouth. Reported on 02/13/2017 predniSONE (DELTASONE) 20 mg Take 3 tablets by 90 tablet 11 10/20/2015 11/10/2015 Tablet mouth daily. sulfamethoxazole-trimethopri Take 1 tablet by 36 tablet 3 0 10/21/2015 11/10/2015 m (BACTRIM DS) 800-160 mg mouth three times TabletIndications: GCA a week. (giant cell arteritis) aspirin 81 mg Tablet, Take 1 tablet by 30 tablet 3 10/20/19 16 02/21/2016 Delayed Release mouth daily. (E.C.)Indications: GCA (giant cell arteritis) amlodipine (NORVASC) 5 mg Take 5 mg by 0 10/27/2015 tablet mouth daily. fexofenadine (RENAY) 180 180 MG = 1 0 1 07/12/2021 mg tablet Tablet(s), PO, QAM cetirizine (ZYRTEC) 10 mg 10 MG = 1 0 12/26/2010 07/12/2021 tablet Tablet(s), PO, QHS hydrOXYzine (ATARAX) 25 mg 25 M-2 0 1 08/21/2016 tablet Tablet(s), PO, QHS,PRN documented as of this encounter Plan of Treatment Not on filedocumented as of this encounter Procedures Procedure Name Priority Date/Time Associated Diagnosis Comme nts MRI ORBIT WWO Routine 10/22/2015 8:52 AM Vision loss of left R esults for this CONTRAST EST eye procedure are i n the results section. MRI BRAIN WWO Routine 10/22/2015 8:52 AM Vision loss of left R esults for this CONTRAST (GENERIC) EST eye procedure are in the results section. documented in this encounter Results MRI Orbit With/WO Contrast (10/22/2015 8:52 AM EST) Anatomical Region Laterality Modality Head Magnetic Resonance Specimen (Source) Anatomical Location Collection Method / Collectio n Time Received Time / Laterality Volume Impressions 10/22/2015 3:02 PM EST IMPRESSION: Negative brain MRI. Abnormal appearance of the orbits with e nlargement of the extraocular muscles and abnormal appearance of the intracona l fat. 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 D ifferential considerations include lymphoma. Less likely etiology would inc lude thyroid ophthalmopathy given the presence of intraconal fat signal abnorm alities and apparent involvement of the tendons of the extraocular muscles. Narrative 10/22/2015 3:02 PM EST EXAMINATION: MRI ORBIT WITH/WO CONTRAST CLINICAL HISTORY: Acute left optic neuro susanne, assess for prechiasmal/chaismal lesion, Acute left optic neuropathy, ass ess for prechiasmal/chaismal lesion TECHNIQUE: MRI the brain without with ga dolinium MRI the orbits without with gadolinium 7 cc gadavist COMPARISON: None FINDINGS: Brain MRI: No restricted diffusion to sparks ggest an acute infarct. There are multiple FLAIR hyperintensities projecti ng the periventricular white matter and centrum semiovale. There is no associate d abnormal enhancement post gadolinium. No prior examination present to evaluate for changes. No infratentorial lesions identified. There is no mass, mass effec t, midline shift or extra-axial fluid collection. No ventriculomegaly. There i s normal appearance of the chiasm and suprasellar cistern region. Optic tracts are unremarkable. Orbit MRI: There is abnormal enlargement of the extraocular muscles to include the tendons, primarily the inferior rect us bilaterally left greater than right. There is abnormal signal projecting in t he intraconal fat with stranding of the fat on the right contrast T1-weighted se quence and abnormal enhancement post gadolinium. The STIR sequence demonstrat es abnormal signal within the intraconal fat left greater than right. Optic nerves are normal in signal and mo rphology. Procedure Note Ravi Ernst MD - 10/22/2015Formatt ing of this note might be different from the original. EXAMINATION: MRI ORBIT WITH/WO CONTRAST CLINICAL HISTORY: Acute left optic neuro susanne, assess for prechiasmal/chaismal lesion, Acute left optic neuropathy, ass ess for prechiasmal/chaismal lesion TECHNIQUE: MRI the brain without with ga dolinium MRI the orbits without with gadolinium 7 cc gadavist COMPARISON: None FINDINGS: Brain MRI: No restricted diffusion to sparks ggest an acute infarct. There are multiple FLAIR hyperintensities projecti ng the periventricular white matter and centrum semiovale. There is no associate d abnormal enhancement post gadolinium. No prior examination present to evaluate for changes. No infratentorial lesions identified. There is no mass, mass effec t, midline shift or extra-axial fluid collection. No ventriculomegaly. There i s normal appearance of the chiasm and suprasellar cistern region. Optic tracts are unremarkable. Orbit MRI: There is abnormal enlargement of the extraocular muscles to include the tendons, primarily the inferior rect us bilaterally left greater than right. There is abnormal signal projecting in t he intraconal fat with stranding of the fat on the right contrast T1-weighted se quence and abnormal enhancement post gadolinium. The STIR sequence demonstrat es abnormal signal within the intraconal fat left greater than right. Optic nerves are normal in signal and mo rphology. IMPRESSION IMPRESSION: Negative brain MRI. Abnormal appearance of the orbits with e nlargement of the extraocular muscles and abnormal appearance of the intracona l fat. 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 D ifferential considerations include lymphoma. Less likely etiology would inc lude thyroid ophthalmopathy given the presence of intraconal fat signal abnorm alities and apparent involvement of the tendons of the extraocular muscles. Primo Rodríguez MD IMG MRI ORDERABLES MRI Brain With/WO Contrast (GENERIC) (10/22/2015 8:52 AM EST) Anatomical Region Laterality Modality Head Magnetic Resonance Specimen (Source) Anatomical Location Collection Method / Collectio n Time Received Time / Laterality Volume Impressions 10/22/2015 3:01 PM EST IMPRESSION: Negative brain MRI. Abnormal appearance of the orbits with e nlargement of the extraocular muscles and abnormal appearance of the intracona l fat. 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 D ifferential considerations include lymphoma. Less likely etiology would inc lude thyroid ophthalmopathy given the presence of intraconal fat signal abnorm alities and apparent involvement of the tendons of the extraocular muscles. Narrative 10/22/2015 3:01 PM EST EXAMINATION: MRI BRAIN WWO CONTRAST CLINICAL HISTORY: Acute left optic neuro susanne, assess for prechiasmal/chaismal lesion, Acute left optic neuropathy, ass ess for prechiasmal/chaismal lesion TECHNIQUE: MRI the brain without with ga dolinium MRI the orbits without with gadolinium 7 cc gadavist COMPARISON: None FINDINGS: Brain MRI: No restricted diffusion to sparks ggest an acute infarct. There are multiple FLAIR hyperintensities projecti ng the periventricular white matter and centrum semiovale. There is no associate d abnormal enhancement post gadolinium. No prior examination present to evaluate for changes. No infratentorial lesions identified. There is no mass, mass effec t, midline shift or extra-axial fluid collection. No ventriculomegaly. There i s normal appearance of the chiasm and suprasellar cistern region. Optic tracts are unremarkable. Orbit MRI: There is abnormal enlargement of the extraocular muscles to include the tendons, primarily the inferior rect us bilaterally left greater than right. There is abnormal signal projecting in t he intraconal fat with stranding of the fat on the right contrast T1-weighted se quence and abnormal enhancement post gadolinium. The STIR sequence demonstrat es abnormal signal within the intraconal fat left greater than right. Optic nerves are normal in signal and mo rphology. Procedure Note Ravi Ernst MD - 10/22/2015Formatt ing of this note might be different from the original. EXAMINATION: MRI BRAIN WWO CONTRAST CLINICAL HISTORY: Acute left optic neuro susanne, assess for prechiasmal/chaismal lesion, Acute left optic neuropathy, ass ess for prechiasmal/chaismal lesion TECHNIQUE: MRI the brain without with ga dolinium MRI the orbits without with gadolinium 7 cc gadavist COMPARISON: None FINDINGS: Brain MRI: No restricted diffusion to sparks ggest an acute infarct. There are multiple FLAIR hyperintensities projecti ng the periventricular white matter and centrum semiovale. There is no associate d abnormal enhancement post gadolinium. No prior examination present to evaluate for changes. No infratentorial lesions identified. There is no mass, mass effec t, midline shift or extra-axial fluid collection. No ventriculomegaly. There i s normal appearance of the chiasm and suprasellar cistern region. Optic tracts are unremarkable. Orbit MRI: There is abnormal enlargement of the extraocular muscles to include the tendons, primarily the inferior rect us bilaterally left greater than right. There is abnormal signal projecting in t he intraconal fat with stranding of the fat on the right contrast T1-weighted se quence and abnormal enhancement post gadolinium. The STIR sequence demonstrat es abnormal signal within the intraconal fat left greater than right. Optic nerves are normal in signal and mo rphology. IMPRESSION IMPRESSION: Negative brain MRI. Abnormal appearance of the orbits with e nlargement of the extraocular muscles and abnormal appearance of the intracona l fat. 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 D ifferential considerations include lymphoma. Less likely etiology would inc lude thyroid ophthalmopathy given the presence of intraconal fat signal abnorm alities and apparent involvement of the tendons of the extraocular muscles. Primo Rodríguez MD IMG MRI ORDERABLES documented in this encounter Visit Diagnoses Diagnosis Vision loss of left eye Unqualified visual loss, one eye documented in this encounter Administered Medications Inactive Administered Medications - up to 3 most recent administrations Medication Order MAR Action Action Date Dose Rate Site gadobutrol (GADAVIST) 1 mMol/mL Given 10/22/2015 9:13 AM EST 7 m Ls injection 7.12 mL 7.12 mL (0.1 mL/kg/dose ? 71.2 kg Order-specific weight), Intravenous, ONCE PRN, 1 dose, Starting on 10/22/15 at 0759, Until 10/22/15 at 0913, Per Protocol, Routine documented in this encounter Care Teams Religious Assistant Relationship Specialty Start Date End Date Zoey Lucas MD PCP - General 09/05/[address] [facility] [address] [place] [address] documented as of this encounter
--- OUTSIDE RECORDS SUMMARY | 2022-07-27 00:19 | XMS_ITS | Encounter Summary ---
:1940 Author Organization [facility] Address [address] [place] [address] Care Team Providers Name Role Phone Zoey Lucas MD Primary Care Provider Encounter Details Date Type Department Care Team Description 11/10/2015 Office Visit Rheumatology at [facility] Cliff Kline MD GCA (giant cell [facility] art eritis) [place] [address] GENERAL INTERNAL [phone] MEDICINE [place], [place] [address] Social History Tobacco Use Types [...] Sign Reading Time Taken Comments Blood Pressure 154/67 11/10/2015 3:09 PM EST Pulse 86 11/10/2015 3:09 PM EST Temperature - - Respiratory Rate 20 11/10/2015 3:09 PM EST Oxygen Saturation 98% 11/10/2015 3:09 PM EST Inhaled Oxygen Concentration - - Weight 73.4 kg (161 lb 12.8 oz) 11/10/2015 3:09 PM EST Height 160 cm (5' 3) 11/10/2015 3:09 PM EST Body Mass Index 28.66 11/10/2015 3:09 PM EST documented in this encounter Patient Instructions Patient InstructionsCliff Kline MD - 11/10/2015 4:02 PM EST Labs today and every 2 weeks for the next 2 months Decrease prednisone to 50mg daily, then by 10mg every 2 weeks until you are at 30mg daily Return to clinic in 1 month documented in this encounter Progress Notes Sukhdev Duke MD - 11/13/2015 7:37 PM EST Rheumatology Attending Note: CLINICAL HISTORY: The pt was seen and evaluated in consultation with Rheumatology Fellow Dr. Cliff Kline. Please refer to Dr. Kline's clinic note for details. 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 She was subsequently put on daily prednisone, 60 mg for immunosuppression. She felt that her vision loss remained unchanged. PHYSICAL EXAMINATION: Please refer to Dr. Kline's detailed record of physical examination. In brief, the pt presented withtenderness of the left jaw on palpation and a 3/6 systolic murmur; otherwise, she had no stigmata ofactive inflammatory disease. DIAGNOSTIC STUDIES: Please refer to Dr. Kline's detailed record of diagnostic studies. ASSESSMENT AND RECOMMENDATIONS: I discussed with Dr. Kline about this pt. I reviewed Dr. Kline's clinical assessment and agreed withhim on his treatment plans. The pt's biopsy-proven giant cell arteritis responded to prednisone withsignificant improvement in her acute phase reactants. She will taper prednisone as tolerated. Sukhdev Duke MD PhD Cliff Kline MD - 11/10/2015 3:35 PM EST Rheumatology Outpatient Consultation Note Rheum history GCA biopsy proven with visual changes - pulsed IV steroids x 3 days 10/27/15 HPI: Zeny Joe is a 75 y.o. female with h/o HTN, depression who is here for f/u of biopsy proven GCA with visual changes. She has been on prednisone 60mg now since being discharged from [facility] on 10/27/2015. She has stable visual changes, no headaches, fevers, chills, scalp tenderness, but a few episodes of jaw claudication last week. She has no symptoms of PMR at this time. She is having some agitation, decreased sleep, increased appetite from the prednisone, and is already looking forward to being on lower doses. She is tolerating the other medications that were started in the hospital, and is not having any ill effects from the bactrim, aspirin or other regular medications. She has follow up schedueld with Dr Rodríguez in the next few weeks, and is planned for long termfollow up. In the hospital she had appropriate screening tests including an echo which showed no aortic pathology. 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 Last CRP, SEDRATE Recent Labs 10/27/15 0356 10/24/15 1516 CRP -- -- 1.1 SEDRATE 25* < > 42* < > = values in this interval not displayed. 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 female who presents today for follow up of GCA. Her symptoms are clearlyimproved on prednisone, and her inflammatory markers have trended down nicely as well. We will plan on starting to taper her, though, she will need close follow up given her already vision threatening disease. We will check inflammatory markers today and plan on decreasing prednisone to 50mg, and thenby 10mg every 2 weeks until at 30mg daily. She knows to call us immediately if any of her symptoms recur and to go back to the last effective dose of prednisone. She will concurrently be started on bactrim for PJP prophylaxis. #GCA -prednisone 60mg taper -temporal biopsy -MRI per ophtho -check inflammatory markers every 2 weeks until next visit #CVA prophylaxis -ASA 81 daily #PJP prophylaxis - bactrim 3 times weekly #Osteoprotection - PCP is planning on DEXA and bisphosphonate therapy in addition to current Ca Vit D supplementation, which we agree with Follow-up 1 month CC: ZOEY LUCAS MD Case seen and discussed with Dr Leilani KLINE MD 11/10/2015 documented in this encounter Plan of Treatment Not on filedocumented as of this encounter Procedures Procedure Name Priority Date/Time Associated Comments Diagnosis SEDIMENTATION RATE Routine 11/10/2015 4:42 PM GCA (giant cell Results for this EST arteritis) procedure are i n the results section. CRP, CARDIAC RISK (HS Routine 11/10/2015 4:42 PM GCA (giant ce ll Results for this CRP) EST arteritis) procedure are i n the results section. documented in this encounter Results Sedimentation rate (11/10/2015 4:42 PM EST) P athologist Signature Sed Rate 10 0 - 20 CERNER mm/hr MILLENNIUM Specimen Anatomical Collection Method Collection Time Receive d Time (Source) Location / / Volume Laterality Blood specimen 11/10/2015 4:42 PM 016 4:53 (specimen) EST PM EST Resulting Agency Comment Spec In Lab Fahad Field MD HEMATOLOGY ORDERABLES Performing Organization Address City/State/[place] [address] CERNER MILLENNIUM High Sensitivity CRP (11/10/2015 4:42 PM EST) athologist Signature CRP High Sens 0.4 mg/L CERNER MILLENNIUM Comment: Interpretations: 1) For accurate cardiac risk [...] Location / / Volume Laterality Blood specimen 11/10/2015 4:42 PM 016 4:53 (specimen) EST PM EST Resulting Agency Comment Spec In Lab Fahad Field MD CHEMISTRY ORDERABLES Performing Organization Address City/State/[facility] Code Phon e Number [address] [facility] documented in this encounter Visit Diagnoses Diagnosis GCA (giant cell arteritis) Giant cell arteritis documented in this encounter Care Teams Funeral Counselor Relationship Specialty Start Date End Date Zoey Lucas MD PCP - General 09/05/[address] [place] [address] [place] [address] documented as of this encounter
--- OUTSIDE RECORDS SUMMARY | 2022-07-27 00:19 | XMS_ITS | Encounter Summary ---
:1940 Author Organization [facility] [place] [address] Care Team Providers Name Role Phone Zoey Lucas MD Primary Care Provider Reason for Visit Reason Comments Allergic Reaction Encounter Details Date Type Department Care Team Description 02/07/2011 Office Visit Dermatology Radhika Mcfarland Dermatofibroma (Primary Dx); [facility] MD Bean SK (seborrheic keratosis) [place] [address] CENTER [phone] DERMATOLOGY DEPT . [place], [place] [address] Social History Tobacco Use Types Packs/Day Years Used Date Never Assessed Sex Assigned at Date Recorded Female 02/10/2021 8:25 AM EDT documented as of this encounter Progress Notes Luz Marina Mireles MD - 02/07/2011 4:50 PM EDT I reviewed this note. Resident provided care. LUZ MARINA MIRELES Radhika Mcfarland MD - 02/07/2011 9:26 AM EDT Zeny Joe Date of service: 02/07/2011 : 1940 Dermatology Resident Note: Radhika Mcfarland MD ([id number]) Chief Problem:Intermittent rash. Skin check History: 70 y.o. female. This is a new patient referred by Dr. Bart Andrews (banana loader here [facility]). Ms. Joe presents for recurrent rash. Unfortunately rash not currently active. Rash began on the scalp then generalized in Nov 2009. Very itchy. Her PCP took a biopsy from the neck that showed 'seborrheic dermatitis; but we do not have these records. She was treated with prednisone & it resolved but then returned. She saw Dr. Beck. She was taken off all oral medications (BP meds mostly), and the rash resolved with this and a few more courses of prednisone and Doxepin. Over the summer she was started on Cozar and the rash returned 4 days later. She had more prednisone over the fall & the Cozar was stopped. Had another flare over the winter 2010, treated with prednisone. CBC showed eosinophilia up to 20, has gone down to 6 in January. She saw Dr[address] Andrews in allergy in November, was started on many antihistamines and was TRUE test patch tested. Only positive was to nickel. Her last full body rash was October. She had a small breakout on the leg in January, now no current rash. Would also like me to look at some moles on her back, L breast, chest, raised but not changing. Whenquestioned reports the lesion on her upper thigh has been present for years, not changing. Past/Current Skin History: Negative for skin cancers. Positive for blistering sunburns. Medical History: Hypertension Hyperlipidemia COPD Medications: amlodipine (NORVASC) 5 mg tablet; fexofenadine (RENAY) 180 mg tablet; cetirizine (ZYRTEC) 10 mg tablet; hydrOXYzine (ATARAX) 25 mg tablet; hydrochlorothiazide (HYDRODIURIL) 25 mg tablet; albuterol (PROVENTIL HFA;VENTOLIN HFA) 90 mcg/Actuation inhaler; hydrocortisone 2.5 % cream; triamcinolone (KENALOG) 0.1 % ointment; fluticasone (FLOVENT HFA) 110 mcg/Actuation inhaler Allergies: Beta-blockers (beta-adrenergic blocking agts), Doxazosin mesylate, Nickel and Lisinopril Family History: Mom at 56 with Melanoma. Sister non-melanoma skin cancer. No psoriasis, atopy, connective tissue disease. Social/Occupational History: , retired. Review of Systems: Feels well, no other skin concerns Examination: Patient was alert, well-appearing and in no noticeable distress. A full skin examination was performed. This includes the head, neck, face and scalp including behindthe ears. The chest, abdomen, back, and axillae, as well as the arms, hands, palms, fingers. Legs, feet, toes and soles were also examined. Buttocks and breasts were also examined with patient consent.Genitalia were not examined. Specific findings: 1. Scattered 0.4-0.6 brown papules with waxy, stuck-on appearance on the chest, breasts, and back. 2. Firm papule, centrally raised and sclerotic, peripheral hyperpigmentation. Dimpling with lateral pressure. Located on the Left upper, inner thigh. 3. No active dermatitis today. Diagnosis/Assessment/Treatment Plan/Procedure: 1. Seborrheic keratoses on trunk. Reassured of benign nature. 2. Dermatofibroma on L thigh. Ressured of benign nature. 3. Regarding rash, difficult to give her a diagnosis today & she understands. Drug hypersensitivity sounds high on the differential. Instructed to call for questions/concerns and to be seen on an acute basis if rash returns. Radhika Mcfarland MD ([id number]) Dermatology Resident Staff wildlife conservation professor: Luz Marina Mireles MD ([id number]) Section of Dermatology CC: ZOEY LUCAS MD documented in this encounter Plan of Treatment Not on filedocumented as of this encounter Visit Diagnoses Diagnosis Dermatofibroma - Primary Benign neoplasm of skin, site unspecifie d SK (seborrheic keratosis) Other seborrheic keratosis documented in this encounter Care Teams Pump Oiler Relationship Specialty Start Date End Date Zoey Lucas MD PCP - General 09/05/[address] [place] [address] documented as of this encounter
--- OUTSIDE RECORDS SUMMARY | 2022-07-27 00:19 | XMS_ITS | Encounter Summary ---
:1940 Author Organization [facility] [place] [address] Care Team Providers Name Role Phone Zoey Lucas MD Primary Care Provider Encounter Details Date Type Department Care Team Description 11/28/2015 Laboratory Appointment Lab 3L Yuki Gonzales GCA (giant cell [facility] arteritis) [place] [id number] Social History Tobacco Use Types Packs/Day Years [...] Date/Time Associated Comments Diagnosis SEDIMENTATION RATE Routine 11/28/2015 11:56 GCA (giant cell Re sults for this AM EST arteritis) procedure are i n the results section. CRP, CARDIAC RISK (HS Routine 11/28/2015 11:56 GCA (giant cell Results for this CRP) AM EST arteritis) procedure are i n the results section. documented in this encounter Results Sedimentation rate (11/28/2015 11:56 AM EST) P athologist Signature Sed Rate 8 0 - 20 CERNER mm/hr MILLENNIUM Specimen Anatomical Collection Method Collection Time Receive d Time (Source) Location / / Volume Laterality Blood specimen 11/28/2015 11:56 6 (specimen) AM EST 12:13 PM EST Resulting Agency Comment Spec In Lab Fahad iFeld MD HEMATOLOGY ORDERABLES Performing Organization Address City/State/[place] [address] CERNER [employer] High Sensitivity CRP (11/28/2015 11:56 AM EST) P athologist Signature CRP High Sens <0.2 mg/L CERNER MILLENNIUM Comment: result rechecked-NM Interpretations: 1) For accurate cardiac risk assessment, [...] Location / / Volume Laterality Blood specimen 11/28/2015 11:56 6 (specimen) AM EST 12:13 PM EST Resulting Agency Comment Spec In Lab Fahad Field MD CHEMISTRY ORDERABLES Performing Organization Address City/State/ZIP Code Phon e Number [address] [facility] documented in this encounter Visit Diagnoses Diagnosis GCA (giant cell arteritis) Giant cell arteritis documented in this encounter Care Teams Benefit Authorizer Relationship Specialty Start Date End Date Zoey Lucas MD PCP - General 09/05/[address] [place] [address] documented as of this encounter
--- OUTSIDE RECORDS SUMMARY | 2022-07-27 00:19 | XMS_ITS | Encounter Summary ---
:1940 Author Organization [facility] [place] [address] Care Team Providers Name Role Phone Zoey Lucas MD Primary Care Provider Reason for Visit Reason Comments Temporal Arteritis 1 week check Encounter Details Date Type Department Care Team Description 11/04/2015 Office Visit Ophthalmology at [facility] Anabela Rodríguez, Giant cell arteritis [facility] [place] [address] CENTER [phone] OPHTHALMOLOGY DEPT [place], [place] [address] Social History Tobacco Use Types [...] encounter Progress Notes Primo Rodríguez MD - 11/04/2015 3:51 PM EST Zeny Joe is a 75 y.o. female with the following medical problems; Past Medical History Diagnosis Date ??? Allergic state ??? Arthritis ??? Asthma ??? Anxiety ??? Hypertension ??? Chronic kidney disease single kidney ??? Skin disease ??? 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 Giant cell arteritis 10/2015 Assessment and Plan: Giant cell arteritis Noted vision loss in the left eye 2 weeks ago. Recent TA biopsy positive. On steroids per rheumatology. On examination today, Zeny Joe normal vision in the right eye. Her left eye demonstrated reduced visual function, absent color vision, with a dense relative afferent pupillary defect that would suggest an underlying optic nerve dysfunction. Static visual ochoa were full in the right eye with some scattered dep points peripherally and diffusely depressed in the left. The optic nerves are healthy and pink bilaterally without any evidence of swelling. PION from GCA. MRI brain/orbits revealed enlarged extraocular muscles - TSH ordered is mildly elevated. This is likely thyroid related. Her TSH and free T4 is normal. Given that she is asymptomatic, without any diplopia- no acute management. F/u 6 weeks. Findings discussed with Zeny Joe today and she has expressed understanding. She will call me if she has any further concerns. For Follow up Visit 6 weeks HVF - large fixation target for OS only documented in this encounter Miscellaneous Notes Assessment & Plan Note - Primo Rodríguez MD - 11/04/2015 3:51 PM EST Associated Problem(s): Giant cell arteritis Noted vision loss in the left eye 2 weeks ago. Recent TA biopsy positive. On steroids per rheumatology. On examination today, Zeny Joe normal vision in the right eye. Her left eye demonstrated reduced visual function, absent color vision, with a dense relative afferent pupillary defect that would suggest an underlying optic nerve dysfunction. Static visual ochoa were full in the right eye with some scattered dep points peripherally and diffusely depressed in the left. The optic nerves are healthy and pink bilaterally without any evidence of swelling. PION from GCA. MRI brain/orbits revealed enlarged extraocular muscles - TSH ordered is mildly elevated. This is likely thyroid related. Her TSH and free T4 is normal. Given that she is asymptomatic, without any diplopia- no acute management. F/u 6 weeks. documented in this encounter Plan of Treatment Not on filedocumented as of this encounter Visit Diagnoses Diagnosis Giant cell arteritis documented in this encounter Care Teams Communications Analyst Relationship Specialty Start Date End Date Zoey Lucas MD PCP - General 09/05/10 [address] [place] [address] documented as of this encounter
--- OUTSIDE RECORDS SUMMARY | 2022-07-27 00:19 | XMS_ITS | Encounter Summary ---
:1940 Author Organization [place] [address] Care Team Providers Name Role Phone Zoey Lucas MD Primary Care Provider Reason for Visit Reason Comments Visual Field Change Auth/Cert Specialty Diagnoses / Procedures Referred By Contact Refer red To Contact Diagnoses Giant cell arteritis headaches, r/o temporal arteritis Procedures LIGATION OR BIOPSY, TEMPORAL ARTERY Referral ID Status Reason Start Date Expiration Date Visits Requ ested Visits Authorized [id number] 1 1 Encounter Details Date Type Department Care Team Description 10/24/2015 - Hospital Encounter 1 Jason James MD [facility] [place] [address] Giant cell 10/27/2015 [facility] Varsha Aiken MD [facility] [place] [address] [facility] [place] [address] [place] [address] Social History Tobacco Use Types Packs/Day Years [...] Sign Reading Time Taken Comments Blood Pressure 169/63 10/27/2015 8:01 AM EST Pulse 87 10/27/2015 8:01 AM EST Temperature 36.8 ??C (98.2 ??F) 10/27/2015 8:01 AM EST Respiratory Rate 18 10/27/2015 8:01 AM EST Oxygen Saturation 97% 10/27/2015 8:01 AM EST Inhaled Oxygen Concentration - - Weight 72.5 kg (159 lb 12.8 oz) 10/24/2015 7:49 PM EST Height 160 cm (5' 3) 10/24/2015 7:49 PM EST Body Mass Index 28.31 10/24/2015 7:49 PM EST documented in this encounter Discharge Summaries Camron Al MD - 10/27/2015 8:25 AM EST Discharge Summary Patient Name: Javier Joe Patient Age: 75 y.o. Language: Cape Verdean Race: White Ethnicity: Not nor Admit date: 10/24/2015 Discharge date and time: 10/27/2015 5:11 PM Attending Physician: No att. 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 steroids, and may need bisphosphonates - She should continue Vit D and Calcium supplementation - We will continue high dose steroids at 60mg daily, which will be tapered by rheumatology - Started on bactrim 3 times weekly for PJP ppx which should be continued until weaned off of steroids - She should be on a daily ASA as well, which with the high dose steroids puts her at risk for developing a gastric ulcer - Would f/u on any abdominal pain and consider adding a PPI - She was hypertensive during her hospitalization, and at discharge her amlodipine was increased from 5mg daily to 10mg daily - Would f/u on her BP and ensure adequate control Inpatient Provider Contact Information: For questions regarding this document or issues relating to this hospitalization on the Medical Service, please contact your inpatient physician through the [facility] Plan Consultant . Issues after hours and on weekends will be handled by the Hospitalist staff on-call. Discharge Diagnoses (Hospital Problems) and Secondary Diagnoses (Chronic Problems): Active Hospital Problems Diagnosis ??? Giant cell arteritis Resolved Hospital Problems Diagnosis Date Resolved No resolved problems to display. Active Non-Hospital Problems Diagnosis ??? Vision loss of left eye Operations/Major Procedures: Operations: Procedure(s): LIGATION OR BIOPSY, TEMPORAL ARTERY 10/25/2015 History of Presentation: (10/24/15) Patient noticed loss of vision in her left eye on started on , when she saw her physician, who prescribed prednisone. Despite taking 60 mg prednisone per day, this morning she noticed loss of vision in her right eye as well. She states that her left eye had loss of central vision whereas the visual loss in her right eye now is more peripheral vision. Patient does admit to having had irritated eyes for which she was using moisturizing eye drops. She also had been having headache, neck and jaw achiness, and pain with chewing. She had originally assumed her symptoms were due to a sinus infection as she often has allergies. She did see an faith doctor in September, who said her eye exam was normal. She got an MRI on Saturday, which showed no acute intracranial processes. She has had decreased appetite. Denies fever, dizziness, LOC, n/v, fatigue, myalgias, rash, or dry mouth trouble swallowing. Denies any history of stomach ulcers or reflux. Hospital Course: Admitted to hospital medicine and started on IV solumedrol. Temporal artery biopsy positive for vasculitis. Vision did not worsen and inflammatory markers normalized. A TTE was obtained which did not show any aortitis or valvular disease. CT scan of orbits was obtained given abnormal appearance of orbit on MRI obtained as outpatient prior to admission (question orbital pseudotumor). CT showed minimalcrowding of orbital apex. TSH was normal and MPO ab and PR3 ab were negative. She has follow scheduled with opthalmology for further evaluation and possible testing. Discharged on 60mg prednisone with f/u scheduled with rheumatology and opthalmology. Vital Signs at Discharge: BP: 169/63 mmHg, Heart Rate: 87, Temp: 36.8 ??C (98.2 ??F), Resp: 18, BMI (Calculated): 28.4 Height: 160 cm (5' 3) (10/24/151948) Weight - Scale: 72.485 kg (159 lb 12.8 oz) (10/24/151948) Functional and Cognitive Status: Ambulatory, no cognitive issues Important Studies and Lab Data: Labs: Recent Labs 10/27/1535510/26/15 0629 10/25/15 0443 WBC 10.8* 12.3* 9.0 HGB 11.7 11.5 12.3 HCT 34.7 34.2 36.2 PLATELET 386* 380* 426* Recent Labs 10/27/1535510/26/15 0629 10/25/15 0443 NA 133* 133* 135 K 4.4 3.8 3.7 CL 93* 94* 94* CO2 25 26 24 BUN 30* 30* 25* CREATININE 1.14 1.07 1.03 No results for input(s): AST, ALT, ALKPHOS, BILITOT, BILIDIR in the last 168 hours. Recent Labs 10/27/1535510/26/15 0629 10/25/15 0443 CALCIUM 9.2 8.9 9.3 Studies: TTE 10/25/15 1. The left ventricular chamber size is normal. There is normal global left ventricular systolic function. Ejection fraction is estimated to be 65%. 2. The right ventricle is normal in size. Right ventricular global systolic function is normal. The estimated pulmonary artery systolic pressure is 27 mmHg. 3. The aortic valve leaflets are mildly thickened and calcified. There is no evidence of aortic valve stenosis. Temporal artery duplex 10/25/15 The common superficial temporal artery and the frontal branch were assessed bilaterally by duplex. These vessels are patent and appear positive for the halo sign by duplex. The location of these arteries were mapped on the skin. CT orbits wo contrast 10/25/15 Minimal crowding of the orbital apex Pending Studies and Lab Data: none Discharge Conditions/Prognosis: Upon discharge the pt is hemodynamically stable, fully ambulatory without requiring supplemental oxygen, afebrile and pain free. Discharge to: home Updated Allergies/ADRs: Allergies Allergen Reactions ??? Beta-Blockers (Beta-Adrenergic Blocking Agts) ??? Doxazosin Mesylate ??? Lisinopril ??? Nickel Immunizations Given this Hospitalization: Immunization History Administered Date(s) Administered ??? Influenza Vaccine w/Preservative, Split 09/07/2015 ??? Influenza Vaccine, Whole 10/09/2006 Discharge Medications: Your Medications Continued medications with new dosing Dose Details amLODIPine 5 mg Tab Commonly known as: NORVASC Take 2 tablets by mouth daily. What changed: how much to take 10 mg Quantity: 30 tablet Refills: 11 Continued medications, unchanged Dose Details RENAY 180 mg Tab 180 MG = 1 Tablet(s), PO, QAM Generic drug: fexofenadine Refills: 0 aspirin 81 mg Tbec Take 1 tablet by mouth daily. 81 mg Quantity: 30 tablet Refills: 3 CALTRATE 600 ORAL Take by mouth. Refills: 0 cetirizine 10 mg Tab Commonly known as: ZyrTEC 10 MG = 1 Tablet(s), PO, QHS Refills: 0 escitalopram oxalate 10 mg Tab Commonly known as: LEXAPRO Take 10 mg by mouth daily. 10 mg Refills: 0 hydrochlorothiazide 25 mg Tab Commonly known as: HYDRODIURIL 25 MG = 1 Tablet(s), PO, QAM Refills: 0 hydrocortisone 2.5 % Crea 1 Appl(s), Top, Twice daily Refills: 0 hydrOXYzine 25 mg Tab Commonly known as: ATARAX 25 M-2 Tablet(s), PO, QHS,PRN Refills: 0 predniSONE 20 mg Tab Commonly known as: DELTASONE Take 3 tablets by mouth daily. 60 mg Quantity: 90 tablet Refills: 11 sulfamethoxazole-trimethoprim 800-160 mg Tab Commonly known as: BACTRIM DS Take 1 tablet by mouth three times a week. 1 tablet Quantity: 36 tablet Refills: 3 triamcinolone 0.1 % Oint Commonly known as: KENALOG 1 Appl(s), Top, Twice daily Refills: 0 VITAMIN D-3 ORAL Take by mouth. Refills: 0 Smoking Status at Discharge: History Smoking status ??? Former Smoker ??? Quit date: 10/20/1983 Smokeless tobacco ??? Never Used Instructions Given to Patient at Discharge: Patient Instructions Instructions on Discharge to Home Why you were hospitalized - giant cell arteritis Call your doctor or seek medical attention if you develop the following - chest pain, shortness of breath, fever, cough, weakness in an arm or leg, worsening vision Activity level - no restrictions Diet - no change in previous diet Driving - as before hospitalization Shower/Bath - permitted Your blood pressure was elevated. Your amlodipine was increased to 10mg a day (up from 5mg). You should follow-up with your PCP about your elevated BP. If you develop stomach pain would see your primary care provider. Being on an aspirin and high dose steroids puts you at risk for developing a stomach ulcer. A proton-pump inhibitor such as omeprazole may be beneficial. Would discuss with your primary care provider. Follow-up: A follow-up appointment with your primary care provider (Zoey Lucas MD) was scheduled for November 10 at 1pm. Future Appointments Date Time Provider Department Center 11/04/2015 1:00 PM [facility] 11/04/2015 1:30 PM Primo Rodríguez MD [facility] 11/22/2015 2:45 PM Cliff Kline MD [facility] Rhe[facility] Your Inpatient Doctor: Camron Al MD Your Primary Care Provider: ZOEY LUCAS MD [phone] For questions regarding this document or issues relating to this hospitalization on the Medical Service, please contact your inpatient physician through the [facility] Plan Consultant . Issues after hours and on weekends will be handled by the Hospitalist staff on-call. General Instructions None Future Appointments Provider Department Dept Phone 11/04/2015 1:00 PM [facility] Ophthalmology [phone] 11/04/2015 1:30 PM Primo Rodríguez MD Ophthalmology [phone] 11/22/2015 2:45 PM Cliff Kline MD Rheumatology [phone] Discharge References/Attachments None documented in this encounter Discharge Instructions Patient Solis Persaud MD - 10/25/2015 9:06 PM EST Instructions on Discharge to Home Why you were hospitalized - giant cell arteritis Call your doctor or seek medical attention if you develop the following - chest pain, shortness of breath, fever, cough, weakness in an arm or leg, worsening vision Activity level - no restrictions Diet - no change in previous diet Driving - as before hospitalization Shower/Bath - permitted Your blood pressure was elevated. Your amlodipine was increased to 10mg a day (up from 5mg). You should follow-up with your PCP about your elevated BP. If you develop stomach pain would see your primary care provider. Being on an aspirin and high dose steroids puts you at risk for developing a stomach ulcer. A proton-pump inhibitor such as omeprazole may be beneficial. Would discuss with your primary care provider. Follow-up: A follow-up appointment with your primary care provider (Zoey Lucas MD) was scheduled for November 10 at 1pm. Future Appointments Date Time Provider Department Center 11/04/2015 1:00 PM [facility] 11/04/2015 1:30 PM Primo Rodríguez MD [facility] 11/22/2015 2:45 PM Cliff Kline MD [facility] Rhe[facility] Your Inpatient Doctor: Camron Al MD Your Primary Care Provider: ZOEY LUCAS MD [phone] For questions regarding this document or issues relating to this hospitalization on the Medical Service, please contact your inpatient physician through the [facility] Plan Consultant . Issues after hours and on weekends will be handled by the Hospitalist staff on-call. documented in this encounter Medications at Time [...] mouth daily. (E.C.)Indications: GCA (giant cell arteritis) fexofenadine (RENAY) 180 180 MG = 1 0 1 07/12/2021 mg tablet Tablet(s), PO, QAM cetirizine (ZYRTEC) 10 mg 10 MG = 1 0 12/26/2010 07/12/2021 tablet Tablet(s), PO, QHS hydrOXYzine (ATARAX) 25 mg 25 M-2 0 1 08/21/2016 tablet Tablet(s), PO, QHS,PRN documented as of this encounter Progress Notes Yoli Montana RN - 10/26/2015 11:50 AM EST Office of Care Management (OCM) / Sales Representative Publications(CM)/ Initial Assessment Sales Representative Publications: Yoil Montana RN Pager #[phone] Service: [facility] Red service, pager #[phone]. Reviewed record and discussed pt in rounds with Charge/Resource RN, service control operator, PT, CM and with Provider Team. Reviewed record and interviewed patient. Introduced/reviewed CM role and services accepted. REASON for HOSPITALIZATION:75 y.o. 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 PMH Past Medical History Diagnosis Date ??? Allergic state ??? Arthritis ??? Asthma ??? Anxiety ??? Hypertension ??? Chronic kidney disease single kidney ??? Skin disease ??? Giant cell arteritis 10/24/2015 History Social History ??? Marital Status: Spouse Name: N/A Number of Children: N/A ??? Years of Education: N/A Occupational History ??? retired from [employer] Social History Main Topics ??? Smoking status: Former Smoker Quit date: 10/20/1983 ??? Smokeless tobacco: Never Used ??? Alcohol Use: 0.6 oz/week 1 Glasses of wine per week Comment: occasionaly ??? Drug Use: No ??? Sexual Activity: Not on file Other Topics Concern ??? Not on file Social History Narrative PREVIOUS FUNCTIONAL STATUS: patient was independent at baseline. CURRENT FUNCTIONAL STATUS: patient stand by assist in room. SOCIAL / FAMILY SUPPORTS: pt has children in [place], [place], [place] and [place]. Her son will be staying with her over the weekend. ADVANCE DIRECTIVES: None on file. HEALTH /PRESCRIPTION COVERAGE: Insurance as of 10/26/2015 Payor Plan Group Member Effective Dates MEDICARE MEDICARE PART A & B [[id number]] [id number] 05/14/2006 - Subscriber: JAVIER JOE [[id number]] Guarantor : JAVIER JOE [facility] FEDERAL [[id number]] 111 [id number] 06/26/2008 - Subscriber: THIERNOJAVIER [[id number]] Guarantor : JAVIER JOE CURRENT HOME/COMMUNITY SERVICES/EQUIPMENT: DME: none Home Health Agency: none Other: APPEALS AND GENERALIST CLERK REFERRAL: not needed at this time or Notified for: PRIMARY CARE PHYSICIAN: ZOEY LUCAS MD [address] [facility] [address] POTENTIAL DISCHARGE NEEDS: None anticipated. ANTICIPATED BARRIERS TO DISCHARGE: none anticipated TRANSPORTATION @ D/C: family or friend to drive home. Will be here to [place] tomorrow btwn 11-12. PLAN: CM will continue to monitor progress, follow for continuity of care and assist with discharge planning while hospitalized . Nahum De Paz - 10/26/2015 8:12 AM EST Vascular Surgery Recovering very well postoperatively from bilateral temporal artery biopsy. Wounds without drainage or hematoma. Skin glue intact. Patient instructions below, no follow up typically needed. Please do not hesitate to call with questions. Nahum De Paz [phone]. Instructions Following Temporal Artery Biopsy Wound Care: Your incisions were closed with skin glue. This glue is waterproof and will fall off by itself. OK to shower and get incision wet. Activity: No restrictions. No driving while taking narcotic pain medications. Call Doctor for: Please call if you notice worsening redness or drainage from incision(s) lasting longer than 5 days after your surgery, any foul-smelling drainage from the incision, pain not controlled by pain medications, or for any fevers greater than 101.3 F. Pain Medication: No driving for 8 hours after any dose of opioid pain medication if one was presecibed for you. You may use ibuprofen (motrin, advil) in addition to this medication if your pain is not totally controlled. Follow-up: You do not need to follow up unless you have any questions. Should there be any questionsplease feel free to call our office at: For any questions or concerns please call [phone] Camron Al MD - 10/26/2015 7:32 AM EST Hospital Medicine Progress Note Date of Admission: 10/24/2015 ( Hospital Day 2 days ) Responsible Attending: Camron Al MD ID: Javier Joe is a 75 y.o. 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 Active Problems: Giant Cell Arteritis Hypertension 24 hr events: - No acute events overnight. - Got TTE, CT orbits, temporal artery duplex, and temporal artery bx. - Missed IV Solumedrol dose yesterday d/t being off-floor much of the day for procedures and imaging. - States her headache is gone and jaw claudication is improved, only occurring when chewing hard foods. - Patient states her vision in her left eye is less blurry than before. Vitals: BP mildly elevated but improved from admission (admission SBP up to 180s). On RA. Last value Range last 24 hrs Temperature Temp: 36.5 ??C (97.7 ??F) Temp: [36.5 ??C (97.7 ??F)-37.2 ??C (99 ??F)] Heart Rate Heart Rate: 70 Heart Rate: [64-73] Blood Pressure BP: 146/67 mmHg BP: (138-157)/(57-73) Respiratory Rate Resp: 16 Resp: [16-25] SpO2 SpO2: 98 % SpO2: [94 %-99 %] Intake/Output Summary (Last 24 hours) at 10/26/15 1703 Last data filed at 10/26/15 1244 Gross per 24 hour Intake 1440 ml Output 1050 ml Net 390 ml Patient Vitals for the past 168 hrs: Weight 10/24/15 1949 72.485 kg (159 lb 12.8 oz) 10/24/15 1232 72.122 kg (159 lb) Physical Exam: Gen: NAD, pleasant, mildly anxious HEENT: AT/NC, EOMI, PERRL, sclerae anicteric CV: Regular rate and rhythm, 2/6 crescendo-decrescendo systolic murmur heard best over RUSB Pulm: Normal respiratory effort, clear to auscultation bilaterally, no rales/rhonchi/wheezes Abd: +BS, soft, non-tender/distended, no HSM Ext: No pedal edema, 2+ peripheral pulses Skin: Warm, dry, no rashes, no ecchymosis, no lesions Neuro: CAOx3 Labs: WBC newly elevated to 12.3. Platelets normalizing. Mildly hyponatremic, but stably so. ESR down-trending. Recent Labs 10/26/15 0629 10/25/15 0443 10/24/15 1516 WBC 12.3* 9.0 6.4 HGB 11.5 12.3 11.9 HCT 34.2 36.2 35.1 PLATELET 380* 426* 383* NEUTROABS 8.22* 8.16* 5.57 Recent Labs 10/26/15 0629 10/25/15 0443 10/24/15 1516 NA 133* 135 132* K 3.8 3.7 3.7 CL 94* 94* 93* CO2 26 24 26 BUN 30* 25* 20* CREATININE 1.07 1.03 1.00 Recent Labs 10/26/15 0629 10/25/15 0443 CALCIUM 8.9 9.3 Recent Labs 10/26/15 0629 GLUCOSE 86 Recent Labs 10/26/15 0629 10/25/15 0443 10/24/15 1516 SEDRATE 20 32* 42* Myeloperoxidase antibody (10/20/15): negative Proteinase-3 antibody (10/20/15): negative C-ANCA (10/20/15): negative P-ANCA (10/20/15): negative VICENTE (10/20/15): negative Microbiology: none Pertinent radiology/diagnostic studies: B/l temporal artery bx (10/25/15): pending TTE (10/25/15): 1. The left ventricular chamber size is normal. There is normal global left ventricular systolic function. Ejection fraction is estimated to be 65%. 2. The right ventricle is normal in size. Right ventricular global systolic function is normal. The estimated pulmonary artery systolic pressure is 27 mmHg. 3. The aortic valve leaflets are mildly thickened and calcified. There is no evidence of aortic valve stenosis. 4. See remainder of report for additional findings. Temporal Artery Duplex (10/25/15): prelim The common superficial temporal artery and the frontal branch were assessed bilaterally by duplex. These vessels are patent and appear positive for the halo sign by duplex. The location of these arteries were mapped on the skin. CT Orbits w/o contrast (10/25/15): Minimal crowding of the orbital apex. MRI Brain & Orbits w/ and w/o contrast (10/22/15): Negative brain MRI. Abnormal appearance of the orbits with enlargement of the extraocular muscles and abnormal appearance of the intraconal fat. 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 Differential considerations include lymphoma. Less likely etiology would include thyroid ophthalmopathy given the presence of intraconal fat signal abnormalities and apparent involvement of the tendons of the extraocular muscles. Meds: Continuous Infusions: Scheduled Meds: ??? methylPREDNISolone 1,000 mg Intravenous Daily ??? [START ON 10/27/2015] predniSONE 60 mg Oral Daily ??? amLODIPine 5 mg Oral Daily ??? escitalopram oxalate 10 mg Oral Daily ??? hydrochlorothiazide 25 mg Oral QAM ??? sulfamethoxazole-trimethoprim 1 tablet Oral Once per day on Sat ??? sodium chloride 0.9 % 5 mL Intravenous BID PRN Meds:.sodium chloride 0.9 %, lidocaine, acetaminophen Assessment: 75 y.o. female 75 y.o. 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 Improving on methylprednisoloneIV 1g qd. 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 - ophthalmology consulted - CT Orbits showed minimal crowding of orbital apex # HTN: - increase amlodipine from home dose of 5 mg to 10 mg - continue home HCTZ 25 mg qd - monitor BP closely #CVA prophylaxis - ASA 81 daily #Other - DVT ppx: Lovenox 40 mg qd - GI ppx: hold PPI for now; will start when patient starts aspirin after temporal artery bx - Diet: low sodium - Access: pIV - Consults: Rheumatology - Dispo: Hospital Medicine Floor Status - DPOA: Daughter - code status: Full Code SOLIS MARTEL MD (PGY-1) [facility] Medicine Red Team, pager [phone] I have seen the patient and reviewed the resident's above history and I agree with the details as written. The assessment and plan were formulated in discussion with me and I agree with them as documented. Major issues addressed/ Plan: Possible DC home in AM after 3rd dose of IV solumedrol. Camron Al MD I certify that the patient requires: inpatient care status due to GCA on IV steroids Mitesh Fan MD - 10/25/2015 9:35 PM EST Post-Operative Progress Note Patient: Javier Joe s/p Surgery: 10/25/2015 [id number] Procedure(s) (LRB): LIGATION OR BIOPSY, TEMPORAL ARTERY (Bilateral) Surgeon(s) and Role: * Sukhdev Bhatti MD - Primary * Nahum De Paz MD - Resident-Surgeon Mazin: 1 Hr 16 Min 15 Sec * No complications entered in OR log * Short History: awakened from anesthesia, extubated and taken to the recovery room in a stable condition, having suffered no apparent untoward event. Patient location: [facility] Surgical Floor Post-op Consciousness awake, alert and oriented Post-op pain: Adequate analgesia Post-op nausea: no nausea or vomiting Post-op Cardiovascular Status: No chest pain Post-op Respiratory Status: No shortness of breath Post-op Wound Status No swelling, pain, discharge and disability clean, dry, intact Pain: in incision, in jaw associated with 'eating a roll' Subjective/Events: Patient denies chest pain, shortness of breath, dizziness, abdominal pain, nausea, vomiting. She has a mild headache that she attributes to 'not eating anything for 2 days.' She saysshe will take some tylenol before going to sleep. She also mentions that her jaw started hurting on both sides when she ate a roll, similar to how it felt before the surgery. Objective: Vitals: Temp: [36.6 ??C (97.9 ??F)-37.2 ??C (99 ??F)] Heart Rate: [64-73] Resp: [16-25] BP: (138-157)/(65-75) SpO2: [97 %-99 %] Intake/Output Summary (Last 24 hours) at 10/25/152134 Last data filed at 10/25/152039 Gross per 24 hour Intake 600 ml Output 650 ml Net -50 ml Exam: General: NAD, awake/alert, responds to questions appropriately HEENT: EOMI, normocephalic, atraumatic Cardiac: RRR, S1/S2, No M/R/G Resp: Breathing comfortably, CTAB Abd: soft, non-tender, no guarding or peritoneal signs Ext: WWP. Moving all 4 spontaneously. Neuro: No focal deficits. CN II-XII tested and intact. Wound: Dressing: clean, dry, intact A/P: 75 y.o. year old female POD#0 s/p above procedure. she is having the following post op complications: none - Vitals stable - Continue usual post-operative care - Monitor headache and jaw pain, will reassess if either acutely worsen MITESH FAN MD 10/25/2015 9:35 PM Camron Al MD - 10/25/2015 7:10 AM EST [facility] Medicine Progress Note Date of Admission: 10/24/2015 ( Hospital Day 1 day ) Responsible Attending: Varsha Green MD ID: Javierjacquelyn Joe is a 75 y.o. 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 Active Problems: Giant Cell Arteritis Hypertension 24 hr events: - No acute events overnight. - Increased home dose of amlodipine from 5 mg qd to 10 mg qd. - Got Tylenol o/n for frontal h/a, which is improved and now only above her left eye. - Had some black coffee at 4AM for dry mouth, but otherwise NPO. - Vision is unchanged. Vitals: Last value Range last 24 hrs Temperature Temp: 36.7 ??C (98.1 ??F) Temp: [36.7 ??C (98.1 ??F)-36.9 ??C (98.4 ??F)] Heart Rate Heart Rate: 69 Heart Rate: [69-108] Blood Pressure BP: 137/68 mmHg BP: (137-184)/(68-84) Respiratory Rate Resp: 16 Resp: [16-22] SpO2 SpO2: 97 % SpO2: [96 %-100 %] No intake or output data in the 24 hours ending 10/25/15 0710 Patient Vitals for the past 168 hrs: Weight 10/24/15 1949 72.485 kg (159 lb 12.8 oz) 10/24/15 1232 72.122 kg (159 lb) Physical Exam: Gen: NAD, pleasant, mildly anxious HEENT: AT/NC, EOMI, PERRL, sclerae anicteric CV: Regular rate and rhythm, 2/6 crescendo-decrescendo systolic murmur heard best over RUSB Pulm: Normal respiratory effort, clear to auscultation bilaterally, no rales/rhonchi/wheezes Abd: +BS, soft, non-tender/distended, no HSM Ext: No pedal edema, 2+ peripheral pulses Skin: Warm, dry, no rashes, no ecchymosis, no lesions Neuro: CAOx3 Labs: Recent Labs 10/25/153 10/24/15 1516 10/20/15 1118 WBC 9.0 6.4 6.6 HGB 12.3 11.9 11.2 HCT 36.2 35.1 34.2 PLATELET 426* 383* 302 302 NEUTROABS 8.16* 5.57 4.51 Recent Labs 10/25/15 0443 10/24/15 1516 10/20/15 1118 NA 135 132* -- K 3.7 3.7 -- CL 94* 93* -- CO2 24 26 -- BUN 25* 20* -- CREATININE 1.03 1.00 0.82 Recent Labs 10/25/15 0443 CALCIUM 9.3 Recent Labs 10/25/15 044 GLUCOSE 136 Recent Labs 10/25/15 0443 10/24/15 1516 10/20/15 1118 SEDRATE 32* 42* 86* Myeloperoxidase antibody (10/20/15): pending Proteinase-3 antibody (10/20/15): pending C-ANCA (10/20/15): negative P-ANCA (10/20/15): negative VICENTE (10/20/15): negative Microbiology: none Pertinent radiology/diagnostic studies: TTE (10/25/15): pending Temporal Artery Duplex (10/25/15): prelim The common superficial temporal artery and the frontal branch were assessed bilaterally by duplex. These vessels are patent and appear positive for the halo sign by duplex. The location of these arteries were mapped on the skin. MRI Brain & Orbits w/ and w/o contrast (10/22/15): Negative brain MRI. Abnormal appearance of the orbits with enlargement of the extraocular muscles and abnormal appearance of the intraconal fat. 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 Differential considerations include lymphoma. Less likely etiology would include thyroid ophthalmopathy given the presence of intraconal fat signal abnormalities and apparent involvement of the tendons of the extraocular muscles. Meds: Continuous Infusions: Scheduled Meds: ??? amLODIPine 5 mg Oral Daily ??? escitalopram oxalate 10 mg Oral Daily ??? hydrochlorothiazide 25 mg Oral QAM ??? [START ON 10/26/2015] sulfamethoxazole-trimethoprim 1 tablet Oral Once per day on Sat ??? sodium chloride 0.9 % 5 mL Intravenous BID PRN Meds:.sodium chloride 0.9 %, lidocaine, acetaminophen Assessment: 75 y.o. female 75 y.o. 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 Improving on methylprednisoloneIV 1g qd. 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 - ophthalmology consulted - CT Orbits for concern of compression of orbital apics # HTN: - increase amlodipine from home dose of 5 mg to 10 mg - continue home HCTZ 25 mg qd - monitor BP closely #CVA prophylaxis - ASA 81 daily; holding this until after temporal artery biopsy #Other - DVT ppx: Lovenox 40 mg qd - GI ppx: hold PPI for now; will start when patient starts aspirin after temporal artery bx - Diet: low sodium - Access: pIV - Consults: Rheumatology - Dispo: Hospital Medicine Floor Status - DPOA: Daughter - code status: Full Code SOLIS MARTEL MD (PGY-1) [facility] Medicine Red Team, pager [phone] I have seen the patient and reviewed the resident's above history and I agree with the details as written. The assessment and plan were formulated in discussion with me and I agree with them as documented. Major issues addressed/ Plan: # GCA- IV solumedrol x 3 days then prednisone 60 mg daily # Orbital pseudotumor- CT orbits per ophtha # HTN- increase dose of amlodipine Camron Al MD I certify that the patient requires: inpatient care status due to GCA on IV solumedrol documented in this encounter H&P Notes Camron Al MD - 10/24/2015 3:55 PM EST Medicine- Admission Note Patient info: Name: Javier Joe : 1940 PCP: ZOEY LUCAS MD PCP phone number: [phone] Date of Admission: 10/24/2015 ( Hospital Day 0 days ) Service: Medicine Responsible Attending:Charlene Long MD Patient ID: 75 y.o. 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 CC: loss of peripheral vision in right eye HPI: Patient noticed loss of vision in her left eye on started on , when she saw her physician, who prescribed prednisone. Despite taking 60 mg prednisone per day, this morning she noticed loss of vision in her right eye as well. She states that her left eye had loss of central vision whereas the visual loss in her right eye now is more peripheral vision. Patient does admit to having had irritated eyes for which she was using moisturizing eye drops. She also had been having headache, neck and jaw achiness, and pain with chewing. She had originally assumed her symptoms were due to a sinus infection as she often has allergies. She did see an faith doctor in September, who said her eye exam was normal. She got an MRI on Saturday, which showed no acute intracranial processes. She has had decreased appetite. Denies fever, dizziness, LOC, n/v, fatigue, myalgias, rash, or dry mouth trouble swallowing. Denies any history of stomach ulcers or reflux. ROS: General: [-]fevers [-]chills [-]weight change [-]fatigue HEENT: [+]dry mouth [+]change in hearing or vision Pulm: [-]SOB [-]cough GI: [-] abdominal pain [-]nausea [-] vomiting [-]reflux Heme: [-] bruising [-]lymph nodes or nodules [-]mucosal bleeding MSK: [-]weakness [-] myalgias Skin: [-] rashes [-]pruritis [-] skin lesion Neuro: [-]numbness [-]weakness [+]headaches [-] dizziness Past Medical History Diagnosis Date ??? Allergic state ??? Arthritis ??? Asthma ??? Anxiety ??? Hypertension ??? Chronic kidney disease single kidney ??? Skin disease ??? Giant cell arteritis 10/24/2015 Past Surgical History Procedure Laterality Date ??? Lung surgery 1983 Left upper lobe- precancer ??? 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 predniSONE (DELTASONE) 20 mg Tablet Take 3 tablets by mouth daily. 90 tablet 11 ??? sulfamethoxazole-trimethoprim (BACTRIM DS) 800-160 mg Tablet Take 1 tablet by mouth three times a week. 36 tablet 3 Lexapro 10 mg qd Amlodipine 5 mg qam HCTZ 25 mg qam Fexofenadine 180 mg angel Cetirizine 10 mg qhs Calcium carbonate 600 mg qd Allergies Allergen Reactions ??? Beta-Blockers (Beta-Adrenergic Blocking Agts) ??? Doxazosin Mesylate ??? Lisinopril ??? Nickel Family History Problem Relation Age of Onset ??? Glaucoma Neg Hx ??? Macular Degeneration Neg Hx ??? Retinal Detachment Neg Hx History Social History ??? Marital Status: Spouse Name: N/A Number of Children: N/A ??? Years of Education: N/A Occupational History ??? retired from [employer] Social History Main Topics ??? Smoking status: Former Smoker Quit date: 10/20/1983 ??? Smokeless tobacco: Not on file ??? Alcohol Use: Yes Comment: occasionaly ??? Drug Use: No ??? Sexual Activity: Not on file Other Topics Concern ??? Not on file Social History Narrative Lives alone on [address] in [place]. Was a smoker until 1983. Drinks socially, but no EtOH since Adriel. Physical exam: Last value Range last 24 hrs Temperature Temp: 36.9 ??C (98.4 ??F) Temp: [36.9 ??C (98.4 ??F)] Heart rate Heart Rate: 108 Heart Rate: [108] Blood pressure BP: 184/84 mmHg BP: (184)/(84) Respiratory rate Resp: 18 Resp: [18] SpO2 SpO2: 99 % SpO2: [99 %] Gen: NAD, lying in stretcher, very pleasant HEENT: AT/NC, EOMI, PERRL, sclerae anicteric, nl light reflex; loss of peripheral vision to right side CV: Regular rate and rhythm, 2/6 crescendo-decrescendo systolic murmur heard best over RUSB Pulm: Normal respiratory effort, speaking normally, no audible respiratory sounds, clear to auscultation bilaterally, normal expiratory phase, no rales/rhonchi/wheezes Abd: +BS, soft, non-tender/distended, no HSM Ext: No pedal edema, 2+ peripheral pulses Skin: Warm, dry, no rashes, no ecchymosis, no lesions Neuro:-Mental Status: alert, appropriate, oriented to self/place/time Labs: Recent Labs 10/24/15 1516 10/20/15 1118 WBC 6.4 6.6 HGB 11.9 11.2 HCT 35.1 34.2 PLATELET 383* 302 302 Recent Labs 10/20/15 1118 CREATININE 0.82 ESR (10/24/15): 42 ESR (10/20/15): 86 (0-20) Myeloperoxidase antibody (10/20/15): pending Proteinase-3 antibody (10/20/15): pending C-ANCA (10/20/15): negative P-ANCA (10/20/15): negative VICENTE (10/20/15): negative Microbiology: none Pertinent Radiographic/Diagnostic Results: MRI Brain & Orbits w/ and w/o contrast (10/22/15): Negative brain MRI. Abnormal appearance of the orbits with enlargement of the extraocular muscles and abnormal appearance of the intraconal fat. 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 Differential considerations include lymphoma. Less likely etiology would include thyroid ophthalmopathy given the presence of intraconal fat signal abnormalities and apparent involvement of the tendons of the extraocular muscles. Assessment: 75 y.o. 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 Plan: # Giant Cell Arteritis: - IV methylprednisolone as visual changes progressed on po prednisone - expedite temporal artery biopsy - continue trending ESR - continue bactrim 3 times weekly for PJP ppx # HTN: - increase amlodipine from home dose of 5 mg to 10 mg - continue home HCTZ 25 mg qd - monitor BP closely #CVA prophylaxis - ASA 81 daily; holding this until after temporal artery biopsy #Other - DVT ppx: Lovenox 40 mg qd - GI ppx: hold PPI for now; will start when patient starts aspirin after temporal artery bx - Diet: low sodium - Access: pIV - Consults: Rheumatology - Dispo: Hospital Medicine Floor Status - DPOA: Daughter Code: FULL SOLIS MARTEL MD, PGY-1 Hospital Medicine Red Team Pager [phone] I have seen the patient and reviewed the resident's above history and I agree with the details as written. The assessment and plan were formulated in discussion with me and I agree with them as documented. Major issues addressed/ Plan: we will start IV solumedrol as per Rheumatology recommendations. We will discuss timing of temporal artery biopsy with vascular surgery. Consider ophthalmology consult ? Orbital pseudotumor on MRI of the orbit. Camron Al MD I certify that the patient requires: inpatient care status due to GCA on IV steroids documented in this encounter ED Notes Cheryl Cazares - 10/24/2015 2:51 PM EST Patient being primarily managed by rhematology for GCA. Vital signs and brief history were reviewed.Patient appeared stable and was hemodynamically intact and not showing signs of acute decompensation. Patient reported being relatively comfortable given current circumstances, briefly: has been on PO prednisone recently for probably GCA with stable left vision loss, however has had increased headacheover the past 24 hours and new right peripheral vision loss this AM. Advised by rhematology to present to [facility] ER for admission for IV steroids. I reviewed patient's allergies and ordered toradol for headache, as well as solu-medrol for GCA. I discussed the patient with hospital medicine, who will admit the patient with rheumatology consult. Patient will notify nurse or myself if requires any further pain or symptomatic management. Cheryl Cazares DO Resident 10/24/15 1558 Associated attestation - Charlene Long MD - 11/05/2015 4:55 PM EST ED ATTENDING ATTESTATION NOTE The patient was seen in conjunction with Dr. Cazares, the resident physician. I have independentlyperformed the abbott portions of the history and physical exam. I have reviewed the nursing notes, vital signs, and all diagnostic studies personally including labs. I have discussed the details of the case with the resident and agree with the assessment and plan as described in the resident note above unless noted otherwise below. documented in this encounter Miscellaneous Notes Consult Note - Primo Rodríguez MD - 10/28/2015 11:00 AM EST Patient Name: Javier Joe Patient Age: 75 y.o. Birthdate: 1940 Admit date: 10/24/2015 Attending Physician: No att. providers found Ophthalmology Inpatient - Progress Note Place of Service: Ophthalmology Clinic Reason for Visit: I am seeing Javier Joe for follow up. History of Present Illness (since last seen): HPI Review of Systems: Review of Systems Allergies: Allergies Allergen Reactions ??? Beta-Blockers (Beta-Adrenergic Blocking Agts) ??? Doxazosin Mesylate ??? Lisinopril ??? Nickel Family History: Family History Problem Relation Age of Onset ??? Glaucoma Neg Hx ??? Macular Degeneration Neg Hx ??? Retinal Detachment Neg Hx Social History and Habits: History Social History ??? Marital Status: Spouse Name: N/A Number of Children: N/A ??? Years of Education: N/A Occupational History ??? retired from [employer] Social History Main Topics ??? Smoking status: Former Smoker Quit date: 10/20/1983 ??? Smokeless tobacco: Never Used ??? Alcohol Use: 0.6 oz/week 1 Glasses of wine per week Comment: occasionaly ??? Drug Use: No ??? Sexual Activity: Not on file Other Topics Concern ??? Not on file Social History Narrative Exam: Base Eye Exam Visual Acuity (Snellen - Linear) Right Left Dist cc 20/25 +2 5/200 Dist ph cc NI Correction: Glasses Pt notes onset of VF loss OD when she woke up yesterday morning. Tonometry (Applanation, 11:00 AM) Right Left Pressure 16 15 Pupils sk pupil check Extraocular Movement Right Left 0 0 0 0 0 0 0 0 0 0 0 0 0 0 0 0 Neuro/Psych Oriented x3: Yes Mood/Affect: Normal Additional Tests Color Right Left Ssnnw-Kjit-Hrkqwcl 9.5/10 4/4 Unable to HRR OS. Gross primary = + R + G + B + Y Strabismus Exam 0 0 0 0 0 0 R Tilt 0 0 0 0 L Tilt 0 0 0 0 0 0 DVD: DVD: Anders at 86 = 13/12.5 Slit Lamp and Fundus Exam External Exam Right Left External Normal Normal Slit Lamp Exam Right Left Lids/Lashes Normal Normal Conjunctiva/Sclera White and quiet White and quiet Cornea Clear Clear Anterior Chamber Deep and quiet Deep and quiet Iris Round and reactive Round and reactive Lens Clear Clear Vitreous Normal Normal Fundus Exam Right Left Disc Normal Normal C/D Ratio 0.25 0.25 Macula Normal Normal Vessels Normal Normal Diagnostic Tests/Procedures Ordered: HVF OD Assessment: Javier Joe is a 75 y.o. Female concern for GCA - new vision changes in the right eye. HVF today,some peripheral constriction. She is due to get a TA biopsy today. MRI orbits- show enlarged inf rectus muscles, does not appear to be related to her current vision loss. May be EMMANUELLE - for TSI. Also CT orbits to assess orbital apex. F/u 1 week Priom Rodríguez MD 10/28/2015 Plan of Care - Chrissy Stephenson - 10/27/2015 12:12 PM EST Problem: General Plan of Care Goal: Plan of Care Review Outcome: Ongoing (Interventions Implemented as Appropriate) 10/27/15 1123 Plan of Care Review Plan of Care Outcome Status ongoing (interventions implemented as appropriate) Progress improving Coping/Psychosocial Response Interventions Plan of Care Reviewed with patient OUTCOME EVALUATION NOTE: OUTCOME SUMMARY: pt alert and oriented. Denies pain/discomfort this shift. Pt up to the bathroom with standby assists. Pt to be d/c home today. Pt discharged orders received, instructions given to pt with follow up appointments. Pt verbalized understanding of instructions. Pt walked to the elevator for appointment with opthalmology. Pt accompanied by son. IV d/c PLAN MOVING FORWARD: d/c home INDIVIDUALIZED FALL PREVENTION: visual changes, education provided to pt regarding using call light to request assistance Assistance: standby Supervision: Bed alarm, room near nurses station Surveillance: Masimo, purposeful rounding, VS monitoring CPG GOAL OUTCOME EVALUATION: Goal: Individualization and Mutuality Outcome: Ongoing (Interventions Implemented as Appropriate) 10/24/15 215 Mutuality/Individual Preferences What anxieties, fears or concerns do you have about your health or care? None What questions do you have about your health or care? None What information would help us give you more personalized care? None Goal: Fall Prevention-Safe Patient Handling Outcome: Ongoing (Interventions Implemented as Appropriate) 10/26/15 0410 10/27/15 0900 10/27/15 1100 Canales Fall Risk History of Falling -- 0 -- Secondary Diagnosis -- 15 -- Ambulatory Aids -- 0 -- Intravenous Therapy/Heparin/Saline Lock -- 20 -- Gait/Transferring -- 20 -- Mental Status -- 0 -- Score -- 55 -- Activity and Safety Assistive Device Front wheel walker -- -- OTHER Canales Fall Risk -- High -- Safety Interventions Safety Precautions/Fall Reduction -- -- environmental modification;fall reduction program maintained;lighting adjusted for task/safety;low bed;muscle strengthening facilitated;nonskid shoes/slippers when out of bed;room near unit station Musculoskeletal Interventions Activity/Level of Assistance -- up in room;with stand by assist -- Positioning -- -- independent Goal: Infection Control Outcome: Ongoing (Interventions Implemented as Appropriate) 10/27/15 0900 Coping/Psychosocial Response Interventions Counseling calming techniques promoted;emotional support provided;verbalization of feelings encouraged;understanding of situation facilitated Safety Interventions Isolation Precautions standard precautions maintained Infection Prevention bronchial hygiene promoted;environmental surveillance;hydration promoted;nutrition promoted;promote handwashing;rest/sleep promoted Goal: Discharge Needs Assessment Outcome: Ongoing (Interventions Implemented as Appropriate) 10/24/15 2209 Living Environment Transportation Available car Problem: Skin Integrity Impairment, Risk/Actual (Adult, Obstetrics) Goal: Identify Signs and Symptoms and Related Risk Factors Signs and symptoms and related risk factors are identified upon initiation of Human Response Clinical Practice Guideline (CPG) Outcome: Ongoing (Interventions Implemented as Appropriate) 10/27/15 1123 Skin Integrity Impairment, Risk/Actual Personal Related Risk Factors (Skin Integrity Impairment, Risk/Actual) extremes in age Treatment Related Related Risk Factors (Skin Integrity Impairment, Risk/Actual) invasive catheters Goal: Skin Integrity/Wound Healing Patient will demonstrate the desired outcomes. Outcome: Ongoing (Interventions Implemented as Appropriate) 10/27/15 1123 Skin Integrity Impairment, Risk/Actual (Adult, Obstetrics) Skin Integrity/Wound Healing making progress toward outcome Plan of Care - Patricia Lynch RN - 10/27/2015 3:08 AM EST Problem: General Plan of Care Goal: Plan of Care Review Outcome: Ongoing (Interventions Implemented as Appropriate) 10/27/15 0303 Plan of Care Review Plan of Care Outcome Status ongoing (interventions implemented as appropriate) Progress improving Coping/Psychosocial Response Interventions Plan of Care Reviewed with patient OUTCOME EVALUATION NOTE: OUTCOME SUMMARY: Continue to monitor, plan for discharge after steroid infusion today (10/27) PLAN MOVING FORWARD: Pt remains free from falls/injuries this shift, bed in low position. Pt continues to c/o occasional PENA & jaw pain- PRN Tylenol administered w/ good effect. Pt additionally c/o heartburn- [place] notified & PRN Tums administered w/ good effect. Bilateral temporal lobe incision sites remain clean/dry/intact. Pt sleeping between care. Call lima maintained within reach at all times, pt encouraged to use in order to make needs known. Will continue to monitor. INDIVIDUALIZED FALL PREVENTION: Assistance: SBA Supervision: Eyes on/hands on Surveillance: Room near unit station, bed alarm, masimo monitoring, purposeful rounding CPG OUTCOME EVALUATION: Goal: Individualization and Mutuality Outcome: Ongoing (Interventions Implemented as Appropriate) Goal: Fall Prevention-Safe Patient Handling Outcome: Ongoing (Interventions Implemented as Appropriate) 10/26/15 04110/26/15195710/27/15 0213 Canales Fall Risk History of Falling -- 0 -- Secondary Diagnosis -- 15 -- Ambulatory Aids -- 0 -- Intravenous Therapy/Heparin/Saline Lock -- 20 -- Gait/Transferring -- 10 -- Mental Status -- 0 -- Score -- 45 -- Activity and Safety Assistive Device Front wheel walker -- -- OTHER Canales Fall Risk -- High -- Safety Interventions Safety Precautions/Fall Reduction -- -- bed alarm;environmental modification;fall reduction program maintained;lighting adjusted for task/safety;low bed;muscle strengthening facilitated;nonskid shoes/slippers when out of bed;room near unit station Musculoskeletal Interventions Activity/Level of Assistance -- up in room;with stand by assist -- Positioning -- -- HOB up 30-45 degrees;independent Goal: Infection Control Outcome: Ongoing (Interventions Implemented as Appropriate) 10/26/15195710/26/152199 Coping/Psychosocial Response Interventions Counseling calming techniques promoted;emotional support provided;goal setting facilitated;personal strengths integrated;problem solving facilitated;reassurance provided;relaxation techniques promoted;understanding of situation facilitated;verbalization of feelings encouraged -- Safety Interventions Isolation Precautions -- standard precautions maintained Infection Prevention environmental surveillance;hydration promoted;nutrition promoted;promote handwashing;rest/sleep promoted -- Problem: Skin Integrity Impairment, Risk/Actual (Adult, Obstetrics) Goal: Identify Signs and Symptoms and Related Risk Factors Signs and symptoms and related risk factors are identified upon initiation of Human Response Clinical Practice Guideline (CPG) Outcome: Ongoing (Interventions Implemented as Appropriate) Goal: Skin Integrity/Wound Healing Patient will demonstrate the desired outcomes. Outcome: Ongoing (Interventions Implemented as Appropriate) 10/27/15 0303 Skin Integrity Impairment, Risk/Actual (Adult, Obstetrics) Skin Integrity/Wound Healing making progress toward outcome Plan of Care - Sandra Gonzalez RN - 10/26/2015 5:02 PM EST Problem: General Plan of Care Goal: Infection Control Outcome: Ongoing (Interventions Implemented as Appropriate) 10/26/15 0830 Coping/Psychosocial Response Interventions Counseling calming techniques promoted Safety Interventions Isolation Precautions standard precautions maintained Infection Prevention environmental surveillance OUTCOME EVALUATION NOTE: OUTCOME SUMMARY: Pt A/Ox4. No c/o pain. Temporal incisions c/d/i. Pt up in room independently with SBA. Pt calling appropriately. Family in to visit. PLAN MOVING FORWARD: methylprednisone dose tomorrow morning. D/C tomorrow INDIVIDUALIZED FALL PREVENTION: Assistance: Independent Supervision: SBA Surveillance: Purposeful rounding CPG OUTCOME EVALUATION: Consult Note - Cliff Kline MD - 10/26/2015 9:12 AM EST Rheumatology Inpatient Consult Note Rheum history #GCA biopsy pending - jaw claudication, visual changes and ischemic eye changes per neuro ophthalmology - 10/20/15 started on pred 60mg PO -10/24/15 worsening visual changes admit to hospital for IV medrol Interval: Javier has received 2 doses of IV solumedrol, with the 3rd dose scheduled today. She had her TAB yesterday with results pending. Echocardiogram was done without evidence or aortic root disease. She feels better, with no headache, and her vision is slightly improved in the left eye, unchanged in the right. She has 2 more episodes of jaw claudication while eating toast, but the rest of her meal was not painful. 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 All: beta blockers FHx: melanoma- mother MGMA: kidney Ca Father- cva Physical Examination: BP 138/57 mmHg Pulse 71 Temp(Src) 36.5 ??C (97.7 ??F) (Oral) Resp 16 Ht 160 cm (5' 3) Wt 72.485 kg (159 lb 12.8 oz) BMI 28.31 kg/m2 SpO2 98% General: NAD, AAOx3 HEENT: NC/AT, no tenderness to jaw currently, no palpable cords, +temporal artery pulsations Skin: No rashes Neck: supple Cardiovascular: S1S2, 3/6 sys murmur at base Lungs: CTA b/l Abdomen: ND, NT Neuro: Grossly intact Laboratory Data: Last 3 wbc, hgb, hct plt Recent Labs 10/26/15 0629 10/25/15 0443 10/24/15 1516 WBC 12.3* 9.0 6.4 HGB 11.5 12.3 11.9 HCT 34.2 36.2 35.1 PLATELET 380* 426* 383* Last 3 Lytes Recent Labs 10/26/15 0629 10/25/15 0443 10/24/15 1516 NA 133* 135 132* K 3.8 3.7 3.7 CL 94* 94* 93* CO2 26 24 26 BUN 30* 25* 20* CREATININE 1.07 1.03 1.00 Last CRP, SEDRATE Recent Labs 10/26/15 0629 10/24/15 1516 CRP -- -- 1.1 SEDRATE 20 < > 42* < > = values in this interval not displayed. 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 Abnormal appearance of the orbits with enlargement of the extraocular muscles and abnormal appearance of the intraconal fat. 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 Differential considerations include lymphoma. Less likely etiology would include thyroid ophthalmopathy given the presence of intraconal fat signal abnormalities and apparent involvement ofthe tendons of the extraocular muscles. Duplex temporal artery: positive halo sign Echo: no aortic root disease Pathology TAB pending Impression: Javier Joe is a 75 y.o. Female with high likelyhood for GCA, h/o HTN, s/p nephrectomy and partial pneumonectomy, who had worsening visual changes on 3 days of prednisone 60mg. She is on day 3/3 of IV solumedrol with improving symptoms. Her screening echo shows no aortic disease, her TAB is pending. After day 3 of pulse steroids she can be transitioned back to PO prednisone at 60mg daily until seen in clinic for planned taper. 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 #GCA -Solumedrol 1g IV x 3 days, then prednisone 60mg taper we will direct as an outpatient -temporal biopsy by vascular surgery to confirm diagnosis -check inflammatory markers, at least ESR -Check TTE #CVA prophylaxis -continue ASA 81 daily #PJP prophylaxis - bactrim 3 times weekly #Osteoprotection - DEXA to be done as outpatient, with possibility of bisphosphonates - cont calcium and vitamin D Case seen and discussed with Dr Eitan KLINE MD 10/26/2015 Associated attestation - Breanne Laird DO - 10/26/2015 8:54 PM EST ATTENDING ADDENDUM The patient's history was reviewed, and I interviewed and examined the patient with Dr. Kline. I agree with his summary, findings, and plan. We will continue to follow the patient closely on discharge Plan of Care - Patricia Lynch RN - 10/26/2015 4:37 AM EST Problem: General Plan of Care Goal: Plan of Care Review Outcome: Ongoing (Interventions Implemented as Appropriate) 10/26/15 0417 Plan of Care Review Plan of Care Outcome Status ongoing (interventions implemented as appropriate) Progress improving Coping/Psychosocial Response Interventions Plan of Care Reviewed with patient OUTCOME EVALUATION NOTE: OUTCOME SUMMARY: Pt remains free from falls/injuries this shift, bed in low position. Pt w/ no new reports of vision changes this shift. Incision sites on bilateral temporal lobes remain clean/dry/intact. Pt did c/o PENA& jaw pain- PRN Tylenol administered x1 at this time w/ good effect. Pt sleeping between care. Call lima maintained within reach at all times, pt encouraged to use in order to make needs known. Will continue to monitor. PLAN MOVING FORWARD: Continue to monitor, monitor vision, work towards discharge INDIVIDUALIZED FALL PREVENTION: Assistance: SBA w/ walker Supervision: Eyes on/hands on Surveillance: Room near unit station, bed alarm, masimo monitoring, purposeful rounding CPG OUTCOME EVALUATION: Goal: Individualization and Mutuality Outcome: Ongoing (Interventions Implemented as Appropriate) 10/24/15 215 Mutuality/Individual Preferences What anxieties, fears or concerns do you have about your health or care? None What questions do you have about your health or care? None What information would help us give you more personalized care? None Goal: Fall Prevention-Safe Patient Handling Outcome: Ongoing (Interventions Implemented as Appropriate) 10/25/15203910/26/15 0400 10/26/15 0410 Canales Fall Risk History of Falling 0 -- -- Secondary Diagnosis 15 -- -- Ambulatory Aids 15 -- -- Intravenous Therapy/Heparin/Saline Lock 20 -- -- Gait/Transferring 10 -- -- Mental Status 0 -- -- Score 60 -- -- Activity and Safety Assistive Device -- -- Front wheel walker OTHER Canales Fall Risk High -- -- Safety Interventions Safety Precautions/Fall Reduction -- bed alarm;environmental modification;fall reduction program maintained;lighting adjusted for task/safety;low bed;mobility aid;muscle strengthening facilitated;nonskid shoes/slippers when out of bed;room near unit station -- Musculoskeletal Interventions Activity/Level of Assistance -- -- up in room;with walker;with stand by assist Positioning -- HOB up 30-45 degrees;independent -- Goal: Infection Control Outcome: Ongoing (Interventions Implemented as Appropriate) 10/25/15203910/25/15 8206 Coping/Psychosocial Response Interventions Counseling calming techniques promoted;emotional support provided;goal setting facilitated;personal strengths integrated;problem solving facilitated;reassurance provided;relaxation techniques promoted;understanding of situation facilitated;verbalization of feelings encouraged -- Safety Interventions Isolation Precautions -- standard precautions maintained Infection Prevention environmental surveillance;hydration promoted;nutrition promoted;promote handwashing;rest/sleep promoted -- Goal: Discharge Needs Assessment Outcome: Ongoing (Interventions Implemented as Appropriate) 10/24/15 2206 Living Environment Transportation Available car Problem: Skin Integrity Impairment, Risk/Actual (Adult, Obstetrics) Goal: Identify Signs and Symptoms and Related Risk Factors Signs and symptoms and related risk factors are identified upon initiation of Human Response Clinical Practice Guideline (CPG) Outcome: Ongoing (Interventions Implemented as Appropriate) Goal: Skin Integrity/Wound Healing Patient will demonstrate the desired outcomes. Outcome: Ongoing (Interventions Implemented as Appropriate) 10/26/15 3067 Skin Integrity Impairment, Risk/Actual (Adult, Obstetrics) Skin Integrity/Wound Healing making progress toward outcome Consult Note - Cliff Kline MD - 10/25/2015 6:55 PM EST Rheumatology Inpatient Consult Note Rheum history #GCA biopsy pending - jaw claudication, visual changes and ischemic eye changes per neuro ophthalmology - 10/20/15 started on pred 60mg PO -10/24/15 worsening visual changes admit to hospital for IV medrol Interval: Javier has received 2 doses of IV solumedrol and has a TAB pending today. She feels better, with noheadache, and her vision is unchanged. She has no more jaw claudication, and is currently NPO for her procedure. 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 All: beta blockers FHx: melanoma- mother MGMA: kidney Ca Father- cva Physical Examination: BP 139/65 mmHg Pulse 64 Temp(Src) 37.2 ??C (99 ??F) (Temporal) Resp 25 Ht 160 cm (5' 3) Wt 72.485 kg (159 lb 12.8 oz) BMI 28.31 kg/m2 SpO2 97% General: NAD, AAOx3 HEENT: NC/AT, no tenderness to jaw currently, no palpable cords, +temporal artery pulsations Skin: No rashes Neck: supple Cardiovascular: S1S2, 3/6 sys murmur at base Lungs: CTA b/l Abdomen: ND, NT Neuro: Grossly intact Laboratory Data: Last 3 wbc, hgb, hct plt Recent Labs 10/25/15 0443 10/24/15 1516 10/20/15 1118 WBC 9.0 6.4 6.6 HGB 12.3 11.9 11.2 HCT 36.2 35.1 34.2 PLATELET 426* 383* 302 302 Last 3 Lytes Recent Labs 10/25/15 0443 10/24/15 1516 10/20/15 1118 NA 135 132* -- K 3.7 3.7 -- CL 94* 93* -- CO2 24 26 -- BUN 25* 20* -- CREATININE 1.03 1.00 0.82 Last CRP, SEDRATE Recent Labs 10/25/15 0443 10/24/15 1516 CRP -- 1.1 SEDRATE 32* 42* 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 Abnormal appearance of the orbits with enlargement of the extraocular muscles and abnormal appearance of the intraconal fat. 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 Differential considerations include lymphoma. Less likely etiology would include thyroid ophthalmopathy given the presence of intraconal fat signal abnormalities and apparent involvement of the tendons of the extraocular muscles. Impression: Javier Joe is a 75 y.o. Female with suspicion for GCA, h/o HTN, s/p nephrectomy who has worsening visual changes on 3 days of prednisone 60mg. She is on day 2/3 of IV solumedrol with improving symptoms. Her TTE for screening of the aorta and TAB are both pending. After day 3 of pulse steroids she can be transitioned back to PO prednisone at 60mg daily until seen in clinic for planned taper. 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 #GCA -Solumedrol 1g IV x 3 days, then prednisone 60mg taper we will direct as an outpatient -temporal biopsy by vascular surgery to confirm diagnosis -check inflammatory markers, at least ESR -Check TTE #CVA prophylaxis -continue ASA 81 daily #PJP prophylaxis - bactrim 3 times weekly #Osteoprotection - DEXA to be done as outpatient, with possibility of bisphosphonates CC: MD CILFF LOCKETT MD 10/25/2015 Case seen and discussed with Dr Laird Associated attestation - Breanne Laird DO - 10/25/2015 7:24 PM EST ATTENDING ADDENDUM The patient's history was reviewed, and I interviewed and examined the patient with . I agree with his summary, findings, and plan. Plan of Care - Sandra Gonzalez RN - 10/25/2015 6:52 PM EST Problem: Skin Integrity Impairment, Risk/Actual (Adult, Obstetrics) Goal: Skin Integrity/Wound Healing Patient will demonstrate the desired outcomes. Outcome: Ongoing (Interventions Implemented as Appropriate) 10/25/15 0455 Skin Integrity Impairment, Risk/Actual (Adult, Obstetrics) Skin Integrity/Wound Healing making progress toward outcome OUTCOME EVALUATION NOTE: OUTCOME SUMMARY: Pt A/O x4. Pt c/o headache 5/10, PRN Tylenol given with good effect. Pt out of room for most of day for temporal artery duplex, exam at the eye clinic, and to the OR for a bilateral temporal artery biopsy. Report taken and currently awaiting pt return from OR. Family in to visit. Pt up to bathroom with walker and SBA, voiding appropriately. PLAN MOVING FORWARD: CAT scan, I/O. INDIVIDUALIZED FALL PREVENTION: Assistance: walker Supervision: 1 assist Surveillance: mani Zamarripa alarm CPG OUTCOME EVALUATION: Op Note - Nahum De Paz - 10/25/2015 5:28 PM EST [facility] [place] Patient Name: Javier Joe : 1940 MR#: [id number] Case Date: 10/25/2015 Date of Operation: 10/25/2015. Surgeon(s) and Role: * Sukhdev Bhatti MD - Primary * Nahum De Paz MD - Resident-Surgeon Mazin Preoperative Diagnosis: Temporal arteritis Postoperative Diagnosis: Same Procedure: 1. Bilateral temporal artery biopsy Findings: Grossly inflammed temporal arteries bilaterally. 2 cm sent to pathology from each side. Skin closed with dermabond. Anesthesia: MAC with local Estimated Blood Loss: 5 mL Urine Output: DTV. Intravenous Fluid: 600 mL. Drains/Lines: PIV Specimens: Bilateral temporal arteries, 2 cm from each side. Indications for Procedure: Javier Joe is a 75 y.o. female with a history of hypertension who over adriel developed the gradual onset of bilateral jaw claudication with visual changes currently being treated by the [facility] for GCA. Plan for bilateral temporal artery biopsy. Procedure in Detail: The patient was correctly identified in the Preprocedure Holding Area. After a discussion of the risks, benefits and alternatives of the procedure and after answering all of the patients questions, the patient wished to proceed and then was consented for the operation. The patientwas brought back to the Operating Room and placed supine on the operating table. Sedation was induced and the patient was then prepped and draped in the standard sterile fashion using a alcohol, chlorhexidine and iodine solutions. Pre-operative antibiotics were administered, and a full standard time out was completed prior to initiating the procedure. We began by infiltrating the skin over the right temporal artery with 1% lidocaine. The temporal arteries had been marked by pre-operative duplex. We then incised the skin over the artery with a no. 15scalpel. We then used a combination of electrocautery and blunt dissection to dissect out the superfi cial temporal artery. The artery was then ligated proximally and distally using 3-0 silk ties. The artery was then delivered from the table and sent to pathology. The incision was then closed with interrupted 3-0 Vicryl sutures and the skin sealed with derma-perez skin glue. We then repeated this process for the left side. All sponge and instrument counts were correct at the end of the procedure. Dr. Bhatti, the attendingsurgeon of record, was present and scrubbed for the duration of the procedure. Disposition: aroused from sedation, and taken to the recovery room in a stable condition Condition: doing well without problems Associated attestation - Sukhdev Bhatti MD - 11/04/2015 8:54 AM EST Attestation: Case Date: 10/25/2015 I was present and I participated during the entire procedure (does not need to include opening and closing). SUKHDEV BHATTI MD 11/04/2015 Brief Op Note - Nahum De Paz - 10/25/2015 5:23 PM EST Brief Operative Note Patient Name: Javier Joe : [id number] MR#: [id number] Case Date: 10/25/2015 Surgeon: Surgeon(s) and Role: * Sukhdev Bhatti MD - Primary * Nahum De Paz MD - Resident-Surgeon Mazin Preoperative diagnosis: headaches, r/o temporal arteritis Postoperative diagnosis: headaches, r/o temporal arteritis Procedure(s): 1. Bilateral temporal artery biopsy Anesthesia: MAC, local Findings: Grossly inflammed temporal arteries bilaterally. 2 cm sent to pathology from each side. Skin closed with dermabond. Complications: None. Fluids: 600 mL Estimated Blood Loss: 5 mL Drains: None Disposition: aroused from sedation, and taken to the recovery room in a stable condition Condition: doing well without problems Infection Bundle used? N/A Consult Note - ElvirakathiaDanielNahum A - 10/25/2015 12:59 PM EST Patient Name: Javier Joe Patient Age: 75 y.o. Birthdate: 1940 Admit date: 10/24/2015 Attending Physician: Varsha Green MD Vascular Surgery Inpatient Consultation Date of Consultation: 10/25/2015 Consult Service: Vascular Surgery Place of Service: ( ) Emergency Department (X) Inpatient Unit ( ) Critical Care Responsible Attending: Dr. Bhatti Reason for Consult: We are seeing Javier Joe at the request of Varsha Vidal MD in consultation for a temporal artery biopsy. I have reviewed the available records, interviewed and examined the patient. History of Present Illness: Javier Joe is a 75 y.o. female with a history of hypertension who over adriel developed the gradual onset of bilateral jaw claudication. She attributed this to an illness which some of her friends and family had. She then noted peripheral vision changes in her left eye. Visual changes then progressed to her right eye with central blindness, she was evaluated by her lead machinist who referred herfor medical evaluation. She is currently admitted to the medical service undergoing treatment with high dose steroids for presumed GCA. Vascular surgery has been consulted for biopsy. Review of Systems: General: Denies fevers, chills, night sweats Neuro: As noted above HEENT: As noted above Pulm: Denies shortness of breath, wheezing or cough Card: Denies chest discomfort, palpitations, orthopnea, dyspnea with exersion or claudication GI: Denies nausea, vomiting, constipation, diarrhea, melana or BRBPR : Denies urinary urgency, frequency, dysuria, hematuria Musc: Denies joint pains or stiffness, denies extremity swelling Endo: Denies heat or cold in tolerance Psych: Denies mood changes or feelings of depression or anxiety PMH: Past Medical History Diagnosis Date ??? Allergic state ??? Arthritis ??? Asthma ??? Anxiety ??? Hypertension ??? Chronic kidney disease single kidney ??? Skin disease ??? Giant cell arteritis 10/24/2015 Past Surgical Hx: Past Surgical History Procedure Laterality Date ??? Lung surgery 1983 Left upper lobe- precancer ??? 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 Marital Status: Spouse Name: N/A Number of Children: N/A ??? Years of Education: N/A Occupational History ??? retired from [employer] Social History Main Topics ??? Smoking status: Former Smoker Quit date: 10/20/1983 ??? Smokeless tobacco: Never Used ??? Alcohol Use: 0.6 oz/week 1 Glasses of wine per week Comment: occasionaly ??? Drug Use: No ??? Sexual Activity: None Other Topics Concern ??? None Social History Narrative Fam Hx: Family History Problem Relation Age of Onset ??? Glaucoma Neg Hx ??? Macular Degeneration Neg Hx ??? Retinal Detachment Neg Hx Home Meds: No current facility-administered medications on file prior to encounter. Current Outpatient Prescriptions on File Prior to Encounter Medication Sig Dispense Refill ??? predniSONE (DELTASONE) 20 mg Tablet Take 3 tablets by mouth daily. 90 tablet 11 ??? sulfamethoxazole-trimethoprim (BACTRIM DS) 800-160 mg Tablet Take 1 tablet by mouth three times a week. 36 tablet 3 ??? escitalopram oxalate (LEXAPRO) 10 mg Tablet Take 10 mg by mouth daily. ??? CALCIUM CARBONATE (CALTRATE 600 ORAL) Take by mouth. ??? CALCIUM CARBONATE/VITAMIN D3 (VITAMIN D-3 ORAL) Take by mouth. ??? aspirin 81 mg Tablet, Delayed Release (E.C.) Take 1 tablet by mouth daily. 30 tablet 3 ??? amlodipine (NORVASC) 5 mg tablet Take 5 mg by mouth daily. ??? fexofenadine (RENAY) 180 mg tablet 180 MG = 1 Tablet(s), PO, QAM ??? cetirizine (ZYRTEC) 10 mg tablet 10 MG = 1 Tablet(s), PO, QHS ??? hydrOXYzine (ATARAX) 25 mg tablet 25 M-2 Tablet(s), PO, QHS,PRN ??? hydrochlorothiazide (HYDRODIURIL) 25 mg tablet 25 MG = 1 Tablet(s), PO, QAM ??? hydrocortisone 2.5 % cream 1 Appl(s), Top, Twice daily ??? triamcinolone (KENALOG) 0.1 % ointment 1 Appl(s), Top, Twice daily Allergies Allergies Allergen Reactions ??? Beta-Blockers (Beta-Adrenergic Blocking Agts) ??? Doxazosin Mesylate ??? Lisinopril ??? Nickel Physical Exam: Temp: [36.7 ??C (98.1 ??F)-36.8 ??C (98.2 ??F)] Heart Rate: [69-75] Resp: [16-22] BP: (137-175)/(68-82) SpO2: [96 %-100 %] General: NAD, resting comfortably HEENT: TTP over temporal arteries, 2/2 carotid pulse CVS: Regular Pulm: Normal work of breathing on RA GI: Soft, non tender, non distended, no palpable pulsatile masses MS: RLE: Warm and well perfused. No edema, 2/2 DP pulse. LLE: Warm and well perfused. No edema. 2/2 DP pulse Neuro: Grossly nonfocal, moving all extremities. Derm: No rashes or skin lesions noted. Labs: Recent Labs 10/25/15 0443 10/24/15 1516 WBC 9.0 6.4 HGB 12.3 11.9 HCT 36.2 35.1 PLATELET 426* 383* Recent Labs 10/25/15 0443 10/24/15 1516 NA 135 132* K 3.7 3.7 CL 94* 93* CO2 24 26 BUN 25* 20* CREATININE 1.03 1.00 CALCIUM 9.3 -- Pertinent Radiographic/Diagnostic Results: Temporal artery duplex pending. Assessment: Javier Joe is a 75 y.o. female with a history of hypertension who over adriel developed the gradual onset of bilateral jaw claudication with visual changes currently being [facility] for GCA. Plan for bilateral temporal artery biopsy. Recommendation: Bilateral TAB at next available OR time, please keep NPO. Discussed with Dr. Bhatti. Nahum De Paz 2103. Plan of Care - Patricia Lynch RN - 10/25/2015 5:01 AM EST Problem: General Plan of Care Goal: Plan of Care Review Outcome: Ongoing (Interventions Implemented as Appropriate) 10/25/15 0455 Plan of Care Review Plan of Care Outcome Status ongoing (interventions implemented as appropriate) Progress no change Coping/Psychosocial Response Interventions Plan of Care Reviewed with patient OUTCOME EVALUATION NOTE: OUTCOME SUMMARY: Pt remains free from falls/injuries this shift, bed in low position. On admission to floor pt reports loss of peripheral & central vision to L eye & new changes to peripheral vision in R eye onmorning of 10/24. At this time, pt w/ no new reports of increased vision changes overnight. Pt c/o headache & jaw pain- MD notified & PRN Tylenol administered. On pain re-assessment pt reports pain completely gone. Pt sleeping between care. Call lima maintained within reach at all times, pt encouraged to use in order to make needs known. Will continue to monitor. PLAN MOVING FORWARD: Continue to monitor, NPO, monitor vision changes INDIVIDUALIZED FALL PREVENTION: Assistance: SBA w/ walker Supervision: Eyes on/hands on Surveillance: Room near unit station, bed alarm, masimo monitoring, purposeful rounding CPG OUTCOME EVALUATION: Goal: Individualization and Mutuality Outcome: Ongoing (Interventions Implemented as Appropriate) Goal: Fall Prevention-Safe Patient Handling Outcome: Ongoing (Interventions Implemented as Appropriate) 10/24/15220710/25/157 10/25/15 0327 Canales Fall Risk History of Falling 0 -- -- Secondary Diagnosis 15 -- -- Ambulatory Aids 15 -- -- Intravenous Therapy/Heparin/Saline Lock 20 -- -- Gait/Transferring 10 -- -- Mental Status 0 -- -- Score 60 -- -- Activity and Safety Assistive Device -- Front wheel walker -- OTHER Canales Fall Risk High -- -- Safety Interventions Safety Precautions/Fall Reduction -- -- bed alarm;environmental modification;fall reduction program maintained;lighting adjusted for task/safety;low bed;mobility aid;muscle strengthening facilitated;nonskid shoes/slippers when out of bed;room near unit station Musculoskeletal Interventions Activity/Level of Assistance -- up in room;with walker;with stand by assist -- Positioning -- -- HOB up 30-45 degrees;independent Goal: Infection Control Outcome: Ongoing (Interventions Implemented as Appropriate) 10/24/15215610/25/15 004 Coping/Psychosocial Response Interventions Counseling calming techniques promoted;emotional support provided;goal setting facilitated;personal strengths integrated;problem solving facilitated;reassurance provided;relaxation techniques promoted;understanding of situation facilitated;verbalization of feelings encouraged -- Safety Interventions Isolation Precautions -- standard precautions maintained Goal: Discharge Needs Assessment Outcome: Ongoing (Interventions Implemented as Appropriate) 10/24/152208 Living Environment Transportation Available car Problem: Skin Integrity Impairment, Risk/Actual (Adult, Obstetrics) Goal: Identify Signs and Symptoms and Related Risk Factors Signs and symptoms and related risk factors are identified upon initiation of Human Response Clinical Practice Guideline (CPG) Outcome: Ongoing (Interventions Implemented as Appropriate) Goal: Skin Integrity/Wound Healing Patient will demonstrate the desired outcomes. Outcome: Ongoing (Interventions Implemented as Appropriate) 10/25/15 0455 Skin Integrity Impairment, Risk/Actual (Adult, Obstetrics) Skin Integrity/Wound Healing making progress toward outcome Consult Note - Cliff Kline MD - 10/24/2015 3:36 PM EST Rheumatology Inpatient Consult Note Reason for Consult: Javier Joe presents today at the request of the primary team for evaluation and treatment of GCA HPI: Javier Joe is a 75 y.o. female who presented to [facility] on 10/[facility]14 for worsening visual changes. Wehave been asked to evaluate for worsening temporal arteritis. Javier has a h/o HTN, depression who was seen on 10/20/14 at the request of Dr Rodríguez for GCA. Her symptoms started in Devember with a head cold in middle of 09/2015, with sore throat and head pain, ear aches L>R. She also had eye discharge. She had been using drops without change in her symptoms, when last week, she noted that she had lost some of her vision in the left eye. No fevers. Had purulent left eye discharge. Last week noticed spot in middle of left eye that lost vision. Had been using eye drops for the dry eyes with discharge. Jaw ache and claudication. Seen by neuroophthalmologywho saw findings concerning for GCA, and ESR of 80's. We started her on prednisone 60mg daily for stable non vision threatening visual changes with high concern for temporal arteritis, and a plan to have a biopsy of the temporal artery done as an outpatient for confirmation of the diagnosis. Her headache and jaw claudication improved with prednisone, however, she remains symptomatic, and this morning she developed worsening peripheral vision in her right eye. 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 All: beta blockers FHx: melanoma- mother MGMA: kidney Ca Father- cva Physical Examination: BP 184/84 mmHg Pulse 108 Temp(Src) 36.9 ??C (98.4 ??F) (Oral) Resp 18 Wt 72.122 kg (159 lb) SpO2 99% General: NAD, AAOx3 HEENT: NC/AT, tender left jaw, no palpable cords, +temporal artery pulsations Skin: No rashes Neck: supple Cardiovascular: S1S2, 3/6 sys murmur at base Lungs: CTA b/l Abdomen: ND, NT Neuro: Grossly intact Laboratory Data: Last 3 wbc, hgb, hct plt Recent Labs 10/20/15 1118 WBC 6.6 HGB 11.2 HCT 34.2 PLATELET 302 302 Last 3 Lytes Recent Labs 10/20/15 1118 CREATININE 0.82 Last 3 LFTs No results for input(s): AST, ALT, ALKPHOS, BILITOT, BILIDIR in the last 7068 hours. 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 Abnormal appearance of the orbits with enlargement of the extraocular muscles and abnormal appearance of the intraconal fat. 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 Differential considerations include lymphoma. Less likely etiology would include thyroid ophthalmopathy given the presence of intraconal fat signal abnormalities and apparent involvement of the tendons of the extraocular muscles. Impression: Javier Joe is a 75 y.o. Female with suspicion for GCA, h/o HTN, s/p nephrectomy who has worsening visual changes on 3 days of prednisone 60mg. 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 For concern of temporal arteritis with risk of visual loss, she should be started on solumedrol 1g IV daily x 3 days, which she is being started on in the ED. Since she is inpatient and there is concern for an alternate diagnosis, she shouldreceive a temporal artery biopsy while she is in patient. Neuroophthalmology should also see her while she is inpatient so they can evaluate changes in her eye exam. We should check inflammatory markers, ESR and CRP to look for response to therapy. For temporal arteritis there is increased incidence of aortic involvement, and she should receive an echocardiogram for screening purposes. #GCA -Solumedrol 1g IV x 3 days, then prednisone 60mg taper we will direct as an outpatient -temporal biopsy by vascular surgery to confirm diagnosis -check inflammatory markers, at least ESR -Check TTE #CVA prophylaxis -continue ASA 81 daily #PJP prophylaxis - bactrim 3 times weekly #Osteoprotection - DEXA to be done as outpatient, with possibility of bisphosphonates CC: MD CLIFF LOCKETT MD 10/24/2015 Case seen and discussed with Dr Laird Associated attestation - Breanne Laird DO - 10/24/2015 9:15 PM EST ATTENDING ADDENDUM The patient's history was reviewed, and I interviewed and examined the patient with Dr. Kline I agree with his summary, findings, and plan. ED Triage - Claudia Velez RN - 10/24/2015 12:34 PM EST Patient called Dr. Nielsen's office noting a new change in her right eye vision. Her left eye she has already lost vision in completely and she has been started on the prednisone and antibiotic for this vision change. Due to the new change in her right eye it was suggested by Dr. Nielsen's office that she be seen in the ER and be admitted, patient diagnosed with Giant cell arteritis on . Patient is not in any pain just very nervious and is having no difficulty breathing or SOB. documented in this encounter Plan of Treatment Not on filedocumented as of this encounter Procedures Procedure Name Priority Date/Time Associated Comments Diagnosis ECG SCAN 10/28/2015 12:00 AM EST HEMOGRAM Routine 10/27/2015 3:56 AM Results f or this EST procedure are i n the results section. DIFFERENTIAL, AUTOMATED Routine 10/27/2015 3:56 AM Results for this EST procedure are i n the results section. SEDIMENTATION RATE Routine 10/27/2015 3:56 AM Res ults for this EST procedure are i n the results section. CBC (WITH DIFF) Routine 10/27/2015 3:56 AM EST BASIC METABOLIC PANEL Routine 10/27/2015 3:56 AM Results for this (NON-FASTING) EST procedure are in the results section. HEMOGRAM Routine 10/26/2015 6:29 AM Results f or this EST procedure are i n the results section. DIFFERENTIAL, AUTOMATED Routine 10/26/2015 6:29 AM Results for this EST procedure are i n the results section. SEDIMENTATION RATE Routine 10/26/2015 6:29 AM Res ults for this EST procedure are i n the results section. CBC (WITH DIFF) Routine 10/26/2015 6:29 AM EST BASIC METABOLIC PANEL Routine 10/26/2015 6:29 AM Results for this (NON-FASTING) EST procedure are in the results section. CT ORBITS WO CONTRAST Routine 10/25/2015 8:51 PM Results for this EST procedure are i n the results section. SPECIMEN TO PATHOLOGY Routine 10/25/2015 5:17 PM Results for this EST procedure are i n the results section. SURGICAL PATHOLOGY Routine 10/25/2015 4:47 PM Res ults for this REPORT EST procedure are i n the results section. SPECIMEN TO PATHOLOGY Routine 10/25/2015 4:47 PM Results for this EST procedure are i n the results section. LIGATION OR BIOPSY, 10/25/2015 4:09 PM headaches, r/o TEMPORAL ARTERY (WRVU EST temporal arteritis 3.05) ECHOCARDIOGRAM COMPLETE Routine 10/25/2015 3:39 PM Giant cell Results for this EST arteritis procedure are i n the results section. LIGATION OR Routine 10/25/2015 10:01 BIOPSY,TEMPORAL ARTERY AM EST TEMPORAL ARTERY DUPLEX STAT 10/25/2015 9:28 AM Results for this EST procedure are i n the results section. HEMOGRAM Routine 10/25/2015 4:43 AM Results f or this EST procedure are i n the results section. DIFFERENTIAL, AUTOMATED Routine 10/25/2015 4:43 AM Results for this EST procedure are i n the results section. SEDIMENTATION RATE Routine 10/25/2015 4:43 AM Res ults for this EST procedure are i n the results section. CBC (WITH DIFF) Routine 10/25/2015 4:43 AM EST BASIC METABOLIC PANEL Routine 10/25/2015 4:43 AM Results for this (NON-FASTING) EST procedure are in the results section. HEMOGRAM STAT 10/24/2015 3:16 PM Results f or this EST procedure are i n the results section. DIFFERENTIAL, AUTOMATED STAT 10/24/2015 3:16 PM Results for this EST procedure are i n the results section. GOLD TUBE HOLD STAT 10/24/2015 3:16 PM Results for this EST procedure are i n the results section. BLUE TUBE HOLD STAT 10/24/2015 3:16 PM Results for this EST procedure are i n the results section. CREATININE STAT 10/24/2015 3:16 PM Results f or this EST procedure are i n the results section. SEDIMENTATION RATE STAT 10/24/2015 3:16 PM Res ults for this EST procedure are i n the results section. CBC (WITH DIFF) STAT 10/24/2015 3:16 PM EST CRP, CARDIAC RISK (HS STAT 10/24/2015 3:16 PM Results for this CRP) EST procedure are i n the results section. BUN STAT 10/24/2015 3:16 PM Results f or this EST procedure are i n the results section. TSH STAT 10/24/2015 3:16 PM Results f or this EST procedure are i n the results section. GLUCOSE, RANDOM STAT 10/24/2015 3:16 PM Result s for this EST procedure are i n the results section. ELECTROLYTES PANEL STAT 10/24/2015 3:16 PM Res ults for this EST procedure are i n the results section. documented in this encounter Results SCAN DOC: ECG (10/28/2015 12:00 AM EST) Narrative This result has an attachment that is no t available. Scanning Provider MEDIA MGR SCAN EXT ORDR/RSLT (ABNORMAL) Differential, Automated (10/27/2015 3:56 AM EST) [facility] Method Time Signature Neutrophils % 92.6 % CERNER MILLENNIUM Neutr Abs (ANC) 10.00 (H) 1.50 - CERNER 6.30 MILLENNIUM x10(3)/mc L Lymphocytes % 5.0 % CERNER MILLENNIUM Lymphocytes Abs 0.5 (L) 1.0 - 3.6 CERNER x10(3)/mc MILLENNIUM L Monocytes % 2.0 % CERNER MILLENNIUM Monocyte Abs 0.2 0.2 - 1.0 CERNER x10(3)/mc MILLENNIUM L Eosinophils % 0.0 % CERNER MILLENNIUM Eosinophils Abs 0.0 0.0 - 0.5 CERNER x10(3)/mc MILLENNIUM L Basophils % 0.0 % CERNER MILLENNIUM Basophils Abs 0.0 0.0 - 0.2 CERNER x10(3)/mc MILLENNIUM L Immature Gran % 0.40 % CERNER MILLENNIUM Comment: Immature granulocytes(IG's)percentage an d absolute count will include metamyelocytes, myelocytes, and promyelo cytes. Blood smears from CBCs yielding IG's will be scanned manually for concterrance danraleigh. If this scan disagrees with the automated IG or if promyelocytes are not ed, a manual differential will be performed. Lida Gran Abs 0.04 0.00 - 0.05 x10(3)/mcL CER NER MILLENNIUM Specimen Anatomical Collection Method Collection Time Receive d Time (Source) Location / / Volume Laterality Blood specimen 10/27/2015 3:56 AM 016 4:01 (specimen) EST AM EST Resulting Agency Comment Spec In Lab Charlene Long MD HEMATOLOGY ORDERABLES Performing Organization Address City/State/[place] [address] CERNER MILLENNIUM (ABNORMAL) Hemogram (10/27/2015 3:56 AM EST) P athologist Signature WBC 10.8 (H) 4.0 - 10.0 CERNER x10(3)/mcL MILLENNIUM RBC 4.03 3.93 - CERNER 5.22 MILLENNIUM x10(6)/mcL Hemoglobin 11.7 11.2 - CERNER 15.7 gm/dL MILLENNIUM Hematocrit 34.7 34.0 - CERNER 45.0 % MILLENNIUM MCV 86.1 79.0 - CERNER 94.0 fL MILLENNIUM MCH 29.0 26.6 - CERNER 32.2 pg MILLENNIUM MCHC 33.7 32.0 - CERNER 36.5 gm/dL MILLENNIUM Platelets 386 (H) 145 - 370 CERNER x10(3)/mcL MILLENNIUM RDWSD 46.8 (H) 35.0 - CERNER 46.0 fL MILLENNIUM RDWCV 15.0 (H) 10.9 - CERNER 14.4 % MILLENNIUM MPV 10.0 9.0 - 12.0 CERNER fL MILLENNIUM Specimen Anatomical Collection Method Collection Time Receive d Time (Source) Location / / Volume Laterality Blood specimen 10/27/2015 3:56 AM 016 4:01 (specimen) EST AM EST Resulting Agency Comment Spec In Lab Charlene Long MD HEMATOLOGY ORDERABLES Performing Organization Address City/State/ZIP Code Phon e Number [address] CERNER MILLENNIUM (ABNORMAL) Sedimentation rate (10/27/2015 3:56 AM EST) athologist Signature Sed Rate 25 (H) 0 - 20 CERNER mm/hr MILLENNIUM Specimen Anatomical Collection Method Collection Time Receive d Time (Source) Location / / Volume Laterality Blood specimen 10/27/2015 3:56 AM 016 4:01 (specimen) EST AM EST Resulting Agency Comment Spec In Lab Varsha Aiken MD HEMATOLOGY ORDERABLES Performing Organization Address City/[facility]/ZIP Code Phon e Number [address] CERNER MILLENNIUM (ABNORMAL) Basic Metabolic Panel (non-fasting) (10/27/2015 3:56 AM EST) athologist Signature Glucose Lvl 160 65 - 199 CERNER mg/dL MILLENNIUM Comment: Diabetes: >=200 mg/dL plus symp toms BUN 30 (H) 8 - 18 mg/dL CERNER MILLENNIUM Creatinine 1.14 0.70 - 1.20 mg/dL CERNER MILL ENNIUM Comment: Please note that the pediatric reference intervals supplied above were not validated at [facility]. Results from pediatri c patients should be interpreted in conjunction to the patient's age, height and muscle mass. Sodium 133 (L) 135 - 145 mmol/L CERNER TOI NIUM Potassium 4.4 3.5 - 5.0 mmol/L CERNER TOI NIUM Comment: Please note: ??Patients with WBC >100,00 0 may have falsely elevated Potassium levels. ??For accurate Potassium quantif ication in these patients send serum separator tube (gold top) for subsequent determinations. ??Contact the Clinical Chemistry Laboratory if there are any qu estions. Chloride 93 (L) 98 - 107 mmol/L CERNER MILLENN IUM CO2 25 22 - 31 mmol/L CERNER MILLENNI UM Anion Gap 15 5 - 15 mmol/L CERNER MILLENNIU M Calcium 9.2 8.5 - 10.5 mg/dL CERNER TOI NIUM Estimated GFR 47 (L) >=60 CERNER DAVIDIU M Comment: This estimated GFR (eGFR) value was [...] the following links into your internet browser. [email or web address] [email or web address] Specimen Anatomical Collection Method Collection Time Receive d Time (Source) Location / / Volume Laterality Blood specimen 10/27/2015 3:56 AM 016 4:01 (specimen) EST AM EST Resulting Agency Comment Spec In Lab Charlene Long MD CHEMISTRY ORDERABLES Performing Organization Address City/State/[place] [address] CERNER MILLENNIUM (ABNORMAL) Differential, Automated (10/26/2015 6:29 AM EST) [facility] Method Time Signature Neutrophils % 66.7 % CERNER MILLENNIUM Neutr Abs (ANC) 8.22 (H) 1.50 - CERNER 6.30 MILLENNIUM x10(3)/mc L Lymphocytes % 23.2 % CERNER MILLENNIUM Lymphocytes Abs 2.9 1.0 - 3.6 CERNER x10(3)/mc MILLENNIUM L Monocytes % 9.6 % CERNER MILLENNIUM Monocyte Abs 1.2 (H) 0.2 - 1.0 CERNER x10(3)/mc MILLENNIUM L Eosinophils % 0.0 % CERNER MILLENNIUM Eosinophils Abs 0.0 0.0 - 0.5 CERNER x10(3)/mc MILLENNIUM L Basophils % 0.1 % CERNER MILLENNIUM Basophils Abs 0.0 0.0 - 0.2 CERNER x10(3)/mc MILLENNIUM L Immature Gran % 0.40 % CERNER MILLENNIUM Comment: Immature granulocytes(IG's)percentage an d absolute count will include metamyelocytes, myelocytes, and promyelo cytes. Blood smears from CBCs yielding IG's will be scanned manually for concor dance. If this scan disagrees with the automated IG or if promyelocytes are not ed, a manual differential will be performed. Lida Gran Abs 0.05 0.00 - 0.05 x10(3)/mcL CER NER MILLENNIUM Specimen Anatomical Collection Method Collection Time Receive d Time (Source) Location / / Volume Laterality Blood specimen 10/26/2015 6:29 AM 016 6:48 (specimen) EST AM EST Resulting Agency Comment Spec In Lab Charlene Long MD HEMATOLOGY ORDERABLES Performing Organization Address City/State/ZIP Code Phon e Number [place] [id number] CERNER MILLENNIUM (ABNORMAL) Hemogram (10/26/2015 6:29 AM EST) P athologist Signature WBC 12.3 (H) 4.0 - 10.0 CERNER x10(3)/mcL MILLENNIUM RBC 3.94 3.93 - CERNER 5.22 MILLENNIUM x10(6)/mcL Hemoglobin 11.5 11.2 - CERNER 15.7 gm/dL MILLENNIUM Hematocrit 34.2 34.0 - CERNER 45.0 % MILLENNIUM MCV 86.8 79.0 - CERNER 94.0 fL MILLENNIUM MCH 29.2 26.6 - CERNER 32.2 pg MILLENNIUM MCHC 33.6 32.0 - CERNER 36.5 gm/dL MILLENNIUM Platelets 380 (H) 145 - 370 CERNER x10(3)/mcL MILLENNIUM RDWSD 48.0 (H) 35.0 - CERNER 46.0 fL MILLENNIUM RDWCV 15.4 (H) 10.9 - CERNER 14.4 % MILLENNIUM MPV 10.2 9.0 - 12.0 CERNER fL MILLENNIUM Specimen Anatomical Collection Method Collection Time Receive d Time (Source) Location / / Volume Laterality Blood specimen 10/26/2015 6:29 AM 016 6:48 (specimen) EST AM EST Resulting Agency Comment Spec In Lab Charlene Long MD HEMATOLOGY ORDERABLES Performing Organization Address City/State/ZIP Code Phon e Number [place] [phone] CERNER MILLENNIUM Sedimentation rate (10/26/2015 6:29 AM EST) athologist Signature Sed Rate 20 0 - 20 CERNER mm/hr MILLENNIUM Specimen Anatomical Collection Method Collection Time Receive d Time (Source) Location / / Volume Laterality Blood specimen 10/26/2015 6:29 AM 016 6:48 (specimen) EST AM EST Resulting Agency Comment Spec In Lab Varsha Aiken MD HEMATOLOGY ORDERABLES Performing Organization Address City/[facility]/ZIP Code Phon e Number [address] CERNER MILLENNIUM (ABNORMAL) Basic Metabolic Panel (non-fasting) (10/26/2015 6:29 AM EST) athologist Signature Glucose Lvl 86 65 - 199 CERNER mg/dL MILLENNIUM Comment: Diabetes: >=200 mg/dL plus symp toms BUN 30 (H) 8 - 18 mg/dL CERNER MILLENNIUM Creatinine 1.07 0.70 - 1.20 mg/dL CERNER MILL ENNIUM Comment: Please note that the pediatric reference intervals supplied above were not validated at [facility]. Results from pediatri c patients should be interpreted in conjunction to the patient's age, height and muscle mass. Sodium 133 (L) 135 - 145 mmol/L CERNER TOI NIUM Potassium 3.8 3.5 - 5.0 mmol/L CERNER TOI NIUM Comment: Please note: ??Patients with WBC >100,00 0 may have falsely elevated Potassium levels. ??For accurate Potassium quantif ication in these patients send serum separator tube (gold top) for subsequent determinations. ??Contact the Clinical Chemistry Laboratory if there are any qu estions. Chloride 94 (L) 98 - 107 mmol/L CERNER MILLENN IUM CO2 26 22 - 31 mmol/L CERNER MILLENNI UM Anion Gap 13 5 - 15 mmol/L CERNER MILLENNIU M Calcium 8.9 8.5 - 10.5 mg/dL CERNER TOI NIUM Estimated GFR 50 (L) >=60 CERNER MILLENNIU M Comment: This estimated GFR (eGFR) value was [...] the following links into your internet browser. [email or web address] [email or web address] Specimen Anatomical Collection Method Collection Time Receive d Time (Source) Location / / Volume Laterality Blood specimen 10/26/2015 6:29 AM 016 6:48 (specimen) EST AM EST Resulting Agency Comment Spec In Lab Charlene Long MD CHEMISTRY ORDERABLES Performing Organization Address City/State/[place] [address] Orbits Wo Contrast (10/25/2015 8:51 PM EST) Anatomical Region Laterality Modality Head Computed Tomography Specimen (Source) Anatomical Location Collection Method / Collectio n Time Received Time / Laterality Volume Impressions 10/26/2015 8:33 AM EST IMPRESSION: Minimal crowding of the orbital apex. Narrative 10/26/2015 8:33 AM EST EXAMINATION: CT ORBITS WO CONTRAST CLINICAL HISTORY: assessed orbital muscl es w/ MRI, would like assessment of orbital apex for possible compression TECHNIQUE: CT orbits without contrast. R outine protocol. COMPARISON: MR orbit 10/22/2015. FINDINGS: Marked enlargement of the bila teral extraocular muscles with relative sparing of the tendons is noted. The inf iltration of the intraconal fat is better seen on the MRI. The inferior rec tus muscles are most prominently involved. There is minimal crowding at t he orbital apex. Paranasal sinuses are clear. Visualized portions of the brain are unremarkable. Bilateral macular drusen identified. Procedure Note Bart Gonzalez MD - 10/26/2015Formatti ng of this note might be different from the original. EXAMINATION: CT ORBITS WO CONTRAST CLINICAL HISTORY: assessed orbital muscl es w/ MRI, would like assessment of orbital apex for possible compression TECHNIQUE: CT orbits without contrast. R outine protocol. COMPARISON: MR orbit 10/22/2015. FINDINGS: Marked enlargement of the bila teral extraocular muscles with relative sparing of the tendons is noted. The inf iltration of the intraconal fat is better seen on the MRI. The inferior rec tus muscles are most prominently involved. There is minimal crowding at t he orbital apex. Paranasal sinuses are clear. Visualized portions of the brain are unremarkable. Bilateral macular drusen identified. IMPRESSION IMPRESSION: Minimal crowding of the orbital apex. Varsha Aiken MD IMG CT ORDERABLES Specimen to Pathology (surgical or derm) (10/25/2015 5:17 PM EST) Specimen Anatomical Collection Method Collection Time Receive d Time (Source) Location / / Volume Laterality AP Specimen 10/25/2015 5:17 PM 6 5:17 EST PM EST Narrative [facility] - 10/25/2015 5:[address] Specimen requisition ordered. ??Separate Pathology report to follow Camron Al MD PATHOLOGY/CYTOLOGY ORDERABLE S Performing Organization Address City/State/[place] [address] [facility] Surgical Pathology Report (10/25/2015 4:47 PM EST) [facility] Method Time Signature Surgical [id number] ? Location: [address] [place] [address] Report The signing pathologist has (i) examined the relevant preparation(s) for the specimen(s) and (ii) rendered or confirmed the diagnosis(es) . . ?Surgic al Pathology DIAGNOSIS A - Temporal artery, right, biopsy: Positive for temporal arteritis (see note). B - Temporal artery, left, biopsy: Positive for temporal arteritis (see note). 10/27/15 LNN 10/27/15 Verified by: ? Carolina Enriquez MD ?Pathologist ?(Electronic Signature ) The attending pathologist whose signature appears on this re port has reviewed all diagnostic slides and has edited the gross and/ or microscopic portion of the report in angela dering the final pathologic diagnosis. DISCUSSION The findings were verbally c ommunicated to Dr. Camron Al at 3:[address] Ivan Chavarria. ADDITIONAL STUDIES Elastic stain performed on B lock A and B demonstrate disruption of the internal elastic lamina. CLINICAL INFORMATION Specimen Submitted: A - Right temporal artery B - Left temporal artery Clinical History: Headaches, r/o temporal arteritis Clinical Diagnosis: Same FROZEN SECTION None. SPECIMEN PROCESSING A - Labeled/Fixative: right temporal artery, fresh. Quantity/Size: single, 2.1 x 0.2 cm. Tissue Description: segment of light-pedraza vessel. Sections/Processing: Seriall y sectioned and inked orange on the lumen edges. (T1) B - Labeled/Fixative: left temporal artery, fresh. Quantity/Size: single, 2.1 x 0.3 cm. Tissue Description: segment of light-pedraza vessel. Sections/Processing: Seriall y sectioned and inked orange on the lumen edges. (T1) nsm Specimen (Source) Anatomical Collection Method Collection Time Re ceived Time Location / / Volume Laterality 10/25/2015 4:47 PM EST Sukhdev Bhatti MD PATHOLOGY/CYTOLOGY ORDERABLE S Performing Organization Address City/[facility] Code Phon e Number [id number] [address] [facility] Specimen to Pathology (surgical or derm) (10/25/2015 4:47 PM EST) Specimen Anatomical Collection Method Collection Time Receive d Time (Source) Location / / Volume Laterality AP Specimen 10/25/2015 4:47 PM 6 4:47 EST PM EST Narrative [facility] - 10/25/2015 4:[address] Specimen requisition ordered. ??Separate Pathology report to follow Varsha Aiken MD PATHOLOGY/CYTOLOGY ORDERABLE S Performing Organization Address City/[facility] Code Phon e Number [address] [facility] ECHOCARD[facility] COMPLETE (10/25/2015 3:39 PM EST) athologist Signature EF 65 [facility] Anatomical Region Laterality Modality Other Specimen (Source) Anatomical Location Collection Method / Collectio n Time Received Time / Laterality Volume 10/25/2015 Narrative 10/25/2015 4:42 PM EST Procedure: ?Transthoracic Echocardiogram Patient: ?THIERNO HERRERA L ?(Age): 1940(75y) Med Rec#: ? [id number] ?Sex: ?F ? [place] Loc: ? [facility] ?Ht / Wt: ??160(cm)/72(kg) Pt. Loc: ?Adult Floor ? BSA: ?1.75 Study Date: ?? 10/25/2015 ?Pt. Type: Inpatient Tape: ? Referring: Charlene Long Reading: Moy Purvis ([id number]) Bowling Ball Finisher: Mone Avila [facility] Diagnosis: *ICD-10-PCS Other giant cell arteritis (M31.6) CPT Codes: *Echo Full (76894) *Spectral Doppler (57822) *Color Doppler (46952) Rhythm: ? Sinus BP: ? 137/68 SUMMARY: 1. The left ventricular chamber size is normal. ??There is normal global left ventricular systolic function. ??Ej ection fraction is estimated to be 65%. 2. The right ventricle is normal in size . ??Right ventricular global systolic function is normal. ??The estim ated pulmonary artery systolic pressure is 27 mmHg. 3. The aortic valve leaflets are mildly thickened and calcified. ??There is no evidence of aortic valve stenosis. 4. See remainder of report for additiona l findings. Findings ? : Study Quality: ? Adequate Left Ventricle: ? The left ventricul ar chamber size is normal. ?Left ventricular wall thickness is normal. ?No ventricular septal defect is vi sualized. ?There is normal global left ventri cular systolic function. ??Ejection fraction is estimated to be 65%. ?There are no left ventricular segm ental wall motion abnormalities. ?Doppler assessment is consistent w ith normal left sided filling pressure. Left Atrium: ? The left atrium is no rmal in size. ?There is no patent foramen ovale v isualized. Right Ventricle: ? The right ventric le is normal in size. ?Right ventricular global systolic function is normal. ?The estimated pulmonary artery sys tolic pressure is 26.66 mmHg. ?The estimated right atrial pressur e is 8 mmHg. Right Atrium: ? The right atrium is normal in size. Aortic Valve: ? The aortic valve is tricuspid. ?The aortic valve leaflets are mild ly thickened. ?Systolic excursion of the aortic v alve is normal. ?There is aortic annular calcificat ion. ?The mean trans-valvular gradient a cross ??the aortic valve is 4.77 mmHg. ?The calculated aortic valve area i s 2.1 cm2. ?There is no evidence of aortic bert ve stenosis. ?There is a trace of aortic regurgi tation present. Mitral Valve: ? The mitral valve ni flets are mildly thickened. ?There is mitral annular calcificat ion. ?There is trace mitral regurgitatio n present. Tricuspid Valve: ? The tricuspid bert ve leaflets are morphologically normal. ?There is trace tricuspid regurgita tion present. Pulmonic Valve: ? The pulmonic valve appears normal in structure and function. ?There is trace pulmonic regurgitat ion present. Pericardium: ? The pericardium appea rs normal and there is no evidence of a pericardial effusion. Aorta: ? The aortic root is normal i n size. ?The ascending aorta is normal in s kena. Pulmonary Artery: ? The main pulmona ry artery appears normal. Venous: ? The inferior vena cava enio ears normal in size. ?There is less than 50% respiratory change in the inferior vena cava dimension consistent with elevated right atrial pressure. Misc: ? See remainder of report for additional findings. ?Two-dimensional echo, spectral Dop pler and color Doppler performed. Chambers 2D ?Value ?Units (Range) ? IVSd (2D) ? 1 ?cm ? LVPWd (2D) ?0.9 ?cm ? IVS:LVPW ratio (2D) 1.1 ?ratio ? LVIDd (2D) ?4.1 ?cm ? LVIDs (2D) ?2.2 ?cm ? LVIDd (2D) index ?2.3 ?cm/m2 ? LVIDs (2D) index ?1.2 ?cm/m2 ? LV FS (2D) ?47 ? % ? EF Teichholz (2D) ?? 79 ? % ? Ao root diameter (2D2.9 ?cm (2.1 - 3.6) ? Ascending Ao ?3.2 ?cm (2 - 3.5) ? Volumes/Mass ?Value ?Units (Range) ? LA Area 4 CH ?16.8 ? cm2 (<21) ? RA AREA 4CH ? 10.7 ? cm2 ? LA ESV BP (MOD) inde27.4 ? ml/m2 ? LV mass (2D) ?128.7 ?g ? LV mass (2D) index ??73.5 ? g/m2 ? Diastolic/Systolic Function ?Value ?Units (Range) ? MV E-wave Vmax ?0.8 ?m/sec ? MV deceleration [id number] ?msec ? MV A-wave Vmax ?1 ?m/sec ? MV E:A ratio ?0.8 ?ratio ? LV septal e' Vmax ?? 0.1 ?m/sec ? LV E:e' septal ratio13.6 ? ratio ? Aortic Valve ?Value ?Units (Range) ? AV Vmax ? 1.7 ?m/sec ? AV VTI ?34.6 ? cm ? AV peak gradient ?10.9 ? mmHg ? AV mean gradient ?4.8 ?mmHg ? LVOT diameter ? 2.1 ?cm ? LVOT Vmax ? 1 ?m/sec ? LVOT VTI ?19.8 ? cm ? LVOT peak gradient ??3.8 ?mmHg ? LVOT mean gradient ??1.6 ?mmHg ? DOI (VTI) ? 0.6 ?ratio ? DOI (Vmax) ?0.6 ?ratio ? SV LVOT ? 70.5 ? ml ? REGAN (continuity Vmax2.1 ?cm2 ? REGAN (continuity Vmax1.2 ?cm2/m2 ? REGAN (continuity VTI)2 ?cm ? REGAN (continuity VTI)1.2 ?cm2/m2 ? Tricuspid Valve ?Value ?Units (Range) ? TR Vmax ? 2.2 ?m/sec ? TR peak gradient ?18.7 ? mmHg ? RAP ? 8 ?mmHg ? RVSP ?26.7 ? mmHg ? Measurement Trending Name ? 10/25/2015 ? LVIDd (2D) ? 4. 08 REGAN (continuity VTI) ? 2.04 REGAN (continuity Vmax) ?2.1 LVIDs (2D) ? 2. 15 Wall Motion: Segment Name ?Rest ? Base-Anteroseptal ?? Normal ? Base-Anterior ? Normal ? Base-Anterolateral ??Normal ? Base-Posterolateral Normal ? Base-Inferior ? Normal ? Base-Inferoseptal ?? Normal ? Mid-Anteroseptal ?Normal ? Mid-Anterior ?Normal ? Mid-Anterolateral ?? Normal ? Mid-Posterolateral ??Normal ? Mid-Inferior ?Normal ? Mid-Inferoseptal ?Normal ? Mccaulley-Septal ? Normal ? Mccaulley-Anterior ? Normal ? Mccaulley-Lateral ?Normal ? Mccaulley-Inferior ? Normal ? Mccaulley-Tip ?Normal ? This report has been electronically sign ed by: _ Moy Purvis MD ? 10/25/2015 1 6:41:43 Images reviewed and interpretation [facility] Cardiac Ultrasound Laboratory Procedure Note Moy Purvis MD - 10/25/2015Format ting of this note might be different from the original. Procedure: Transthoracic Echocardiogram Patient: THIERNO Melara (Age): 1939(75y) Med Rec#: [id number] Sex: F [place] Loc[place] [facility] Ht / Wt: 160(cm)/72(kg) Pt. Loc: Adult Floor BSA: 1.75 Study Date: 10/25/2015 Pt. 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 The left ventricular chamber size is normal. There is normal global left ventricular systolic function. Ejec tion fraction is estimated to be 65%. 2. The right ventricle is normal in size . Right ventricular global systolic function is normal. The estimat ed pulmonary artery systolic pressure is 27 mmHg. 3. The aortic valve leaflets are mildly thickened and calcified. There is no evidence of aortic valve stenosis. 4. See remainder of report for additiona l findings. Findings : Study Quality: Adequate Left Ventricle: The left ventricular sana mber size is normal. Left ventricular wall thickness is norm al. No ventricular septal defect is visuali zed. There is normal global left ventricular systolic function. Ejection fraction is estimated to be 65%. There are no left ventricular segmental wall motion abnormalities. Doppler assessment is consistent with n ormal left sided filling pressure. Left Atrium: The left atrium is normal i n size. There is no patent foramen ovale visual ized. Right Ventricle: The right ventricle is normal in size. Right ventricular global systolic funct ion is normal. The estimated pulmonary artery systolic pressure is 26.66 mmHg. The estimated right atrial pressure is 8 mmHg. Right Atrium: The right atrium is normal in size. Aortic Valve: The aortic valve is tricus pid. The aortic valve leaflets are mildly th ickened. Systolic excursion of the aortic valve is normal. There is aortic annular calcification. The mean trans-valvular gradient across the aortic valve is 4.77 mmHg. The calculated aortic valve area is 2.1 cm2. There is no evidence of aortic valve st enosis. There is a trace of aortic regurgitatio n present. Mitral Valve: The mitral valve leaflets are mildly thickened. There is mitral annular calcification. There is trace mitral regurgitation pre sent. Tricuspid Valve: The tricuspid valve ni flets are morphologically normal. There is trace tricuspid regurgitation present. Pulmonic Valve: The pulmonic valve appea rs normal in structure and function. There is trace pulmonic regurgitation p resent. Pericardium: The pericardium appears no rmal and there is no evidence of a pericardial effusion. Aorta: The aortic root is normal in size . The ascending aorta is normal in size. Pulmonary Artery: The main pulmonary art nery appears normal. Venous: The inferior vena cava appears n ormal in size. There is less than 50% respiratory wyman ge in the inferior vena cava dimension consistent with elevated right atrial pressure. Misc: See remainder of report for additi onal findings. Two-dimensional echo, spectral Doppler and color Doppler performed. Chambers 2D Value Units (Range) IVSd (2D) 1 cm LVPWd (2D) 0.9 cm IVS:LVPW ratio (2D) 1.1 ratio LVIDd (2D) 4.1 cm LVIDs (2D) 2.2 cm LVIDd (2D) index 2.3 cm/m2 LVIDs (2D) index 1.2 cm/m2 LV FS (2D) 47 % EF Teichholz (2D) 79 % Ao root diameter (2D2.9 cm (2.1 - 3.6) Ascending Ao 3.2 cm (2 - 3.5) Volumes/Mass Value Units (Range) LA Area 4 CH 16.8 cm2 (<21) RA AREA 4CH 10.7 cm2 LA ESV BP (MOD) inde27.4 ml/m2 LV mass (2D) 128.7 g LV mass (2D) index 73.5 g/m2 Diastolic/Systolic Function Value Units (Range) MV E-wave Vmax 0.8 m/sec MV deceleration [id number] msec MV A-wave Vmax 1 m/sec MV E:A ratio 0.8 ratio LV septal e' Vmax 0.1 m/sec LV E:e' septal ratio13.6 ratio Aortic Valve Value Units (Range) AV Vmax 1.7 m/sec AV VTI 34.6 cm AV peak gradient 10.9 mmHg AV mean gradient 4.8 mmHg LVOT diameter 2.1 cm LVOT Vmax 1 m/sec LVOT VTI 19.8 cm LVOT peak gradient 3.8 mmHg LVOT mean gradient 1.6 mmHg DOI (VTI) 0.6 ratio DOI (Vmax) 0.6 ratio SV LVOT 70.5 ml REGAN (continuity Vmax2.1 cm2 REGAN (continuity Vmax1.2 cm2/m2 REGAN (continuity VTI)2 cm REGAN (continuity VTI)1.2 cm2/m2 Tricuspid Valve Value Units (Range) TR Vmax 2.2 m/sec TR peak gradient 18.7 mmHg RAP 8 mmHg RVSP 26.7 mmHg Measurement Trending Name 10/25/2015 LVIDd (2D) 4.08 REGAN (continuity VTI) 2.04 REGAN (continuity Vmax) 2.1 LVIDs (2D) 2.15 Wall Motion: Segment Name Rest Base-Anteroseptal Normal Base-Anterior Normal Base-Anterolateral Normal Base-Posterolateral Normal Base-Inferior Normal Base-Inferoseptal Normal Mid-Anteroseptal Normal Mid-Anterior Normal Mid-Anterolateral Normal Mid-Posterolateral Normal Mid-Inferior Normal Mid-Inferoseptal Normal Mccaulley-Septal Normal Mccaulley-Anterior Normal Mccaulley-Lateral Normal Mccaulley-Inferior Normal Mccaulley-Tip Normal This report has been electronically sign ed by: _ Moy Purvis MD 10/25/2015 16:41:4 3 Images reviewed and interpretation verif ied [facility] Charlene Long MD ECHO ORDERABLES Temporal artery duplex (10/25/2015 9:28 AM EST) Component Value Ref Test Analysis Performed At [facility] Method Time Signature VB Text Department: Vascular Surgery Lab VASCU[facility] Report Patient: [id number] (JAVIER JOE) CPT: 97152 ICD10: M31.6 Referring Physician: SUKHDEV BHATTI ?? Indications: temporal arteritis; please mohit arteries for OR today ICD10 Diagnosis Code: M31.6 Findings: Right ?PSV (cm/s) ?? EDV (cm/s) ?? Common Superficial Temporal Mid ?42 ?13 ?? Left ? PSV (cm/s) ?? EDV (cm/s) ?? Common Superficial Temporal Mid ?79 ?20 ?? Interpretation: The common superficial temporal artery and the frontal bra nch were assessed bilaterally by duplex. These vessels are patent and appear positive for the halo sign by duplex. The location of t hese arteries were mapped on the skin. Comparison: ??No previous study in our vascular lab da tabase for comparison. Electronically Signed by: MOHIT TUCKER on 2015-10-27 04:23 :27 PM VB Text End of Report [facility]AS[facility] Report Specimen (Source) Anatomical Collection Method Collection Time Re ceived Time Location / / Volume Laterality 10/25/2015 9:28 AM EST Sukhdev Bhatti MD VASCULAR ORDERABLES Performing Organization Address City/State/ZIP Code Phon e Number [facility] (ABNORMAL) Sedimentation rate (10/25/2015 4:43 AM EST) P athologist Signature Sed Rate 32 (H) 0 - 20 CERNER mm/hr [facility]NIUM Specimen Anatomical Collection Method Collection Time Receive d Time (Source) Location / / Volume Laterality Blood specimen Venous Draw / 10/25/2015 4:43 AM 2015 4:58 (specimen) Unknown EST AM EST Resulting Agency Comment Spec In Lab Charlene Long MD HEMATOLOGY ORDERABLES Performing Organization Address City/State/[place] [address] CERNER MILLENNIUM (ABNORMAL) Differential, Automated (10/25/2015 4:43 AM EST) Patholo gist Method Time Signature Neutrophils % 90.3 % CERNER MILLENNIUM Neutr Abs (ANC) 8.16 (H) 1.50 - CERNER 6.30 MILLENNIUM x10(3)/mc L Lymphocytes % 8.7 % CERNER MILLENNIUM Lymphocytes Abs 0.8 (L) 1.0 - 3.6 CERNER x10(3)/mc MILLENNIUM L Monocytes % 0.9 % CERNER MILLENNIUM Monocyte Abs 0.1 (L) 0.2 - 1.0 CERNER x10(3)/mc MILLENNIUM L Eosinophils % 0.0 % CERNER MILLENNIUM Eosinophils Abs 0.0 0.0 - 0.5 CERNER x10(3)/mc MILLENNIUM L Basophils % 0.0 % CERNER MILLENNIUM Basophils Abs 0.0 0.0 - 0.2 CERNER x10(3)/mc MILLENNIUM L Immature Gran % 0.10 % CERNER MILLENNIUM Comment: Immature granulocytes(IG's)percentage an d absolute count will include metamyelocytes, myelocytes, and promyelo cytes. Blood smears from CBCs yielding IG's will be scanned manually for concor dance. If this scan disagrees with the automated IG or if promyelocytes are not ed, a manual differential will be performed. Lida Gran Abs 0.01 0.00 - 0.05 x10(3)/mcL CER NER MILLENNIUM Specimen Anatomical Collection Method Collection Time Receive d Time (Source) Location / / Volume Laterality Blood specimen 10/25/2015 4:43 AM 016 4:58 (specimen) EST AM EST Resulting Agency Comment Spec In Lab Charlene Long MD HEMATOLOGY ORDERABLES Performing Organization Address City/State/[place] [address] CERNER MILLENNIUM (ABNORMAL) Hemogram (10/25/2015 4:43 AM EST) P athologist Signature WBC 9.0 4.0 - 10.0 CERNER x10(3)/mcL [facility]ILLENNIUM RBC 4.21 3.93 - CERNER 5.22 MILLENNIUM x10(6)/mcL Hemoglobin 12.3 11.2 - CERNER 15.7 gm/dL MILLENNIUM Hematocrit 36.2 34.0 - CERNER 45.0 % MILLENNIUM MCV 86.0 79.0 - CERNER 94.0 fL MILLENNIUM MCH 29.2 26.6 - CERNER 32.2 pg MILLENNIUM MCHC 34.0 32.0 - CERNER 36.5 gm/dL MILLENNIUM Platelets 426 (H) 145 - 370 CERNER x10(3)/mcL MILLENNIUM RDWSD 47.0 (H) 35.0 - CERNER 46.0 fL MILLENNIUM RDWCV 15.1 (H) 10.9 - CERNER 14.4 % MILLENNIUM MPV 10.2 9.0 - 12.0 CERNER fL MILLENNIUM Specimen Anatomical Collection Method Collection Time Receive d Time (Source) Location / / Volume Laterality Blood specimen 10/25/2015 4:43 AM 016 4:58 (specimen) EST AM EST Resulting Agency Comment Spec In Lab Charlene Long MD HEMATOLOGY ORDERABLES Performing Organization Address City/State/ZIP Code Phon e Number [place] [id number] CERNER MILLENNIUM (ABNORMAL) Basic Metabolic Panel (non-fasting) (10/25/2015 4:43 AM EST) athologist Signature Glucose Lvl 136 65 - 199 CERNER mg/dL MILLENNIUM Comment: Diabetes: >=200 mg/dL plus symp toms BUN 25 (H) 8 - 18 mg/dL CERNER MILLENNIUM Creatinine 1.03 0.70 - 1.20 mg/dL CERNER MILL ENNIUM Comment: Please note that the pediatric reference intervals supplied above were not validated at [facility]. Results from pediatri c patients should be interpreted in conjunction to the patient's age, height and muscle mass. Sodium 135 135 - 145 mmol/L CERNER TOI NIUM Potassium 3.7 3.5 - 5.0 mmol/L CERNER TOI NIUM Comment: Please note: ??Patients with WBC >100,00 0 may have falsely elevated Potassium levels. ??For accurate Potassium quantif ication in these patients send serum separator tube (gold top) for subsequent determinations. ??Contact the Clinical Chemistry Laboratory if there are any qu estions. Chloride 94 (L) 98 - 107 mmol/L CERNER MILLENN IUM CO2 24 22 - 31 mmol/L CERNER MILLENNI UM Anion Gap 17 (H) 5 - 15 mmol/L CERNER MILLENNIU M Calcium 9.3 8.5 - 10.5 mg/dL CERNER TOI NIUM Estimated GFR 52 (L) >=60 CERNER MILLENNIU M Comment: This estimated GFR (eGFR) value was [...] the following links into your internet browser. [email or web address] Specimen Anatomical Collection Method Collection Time Receive d Time (Source) Location / / Volume Laterality Blood specimen 10/25/2015 4:43 AM 016 4:58 (specimen) EST AM EST Resulting Agency Comment Spec In Lab Charlene Long MD CHEMISTRY ORDERABLES Performing Organization Address City/[facility]/ZIP Code Phon e Number [address] [facility] MILLENNIUM TSH (10/24/2015 3:16 PM EST) P athologist Signature TSH 0.40 0.27 - 4.20 CERNER mcIU/mL [facility] Specimen Anatomical Collection Method Collection Time Receive d Time (Source) Location / / Volume Laterality Blood specimen Venous Draw / 10/24/2015 3:16 PM 2015 3:50 (specimen) Unknown EST PM EST Resulting Agency Comment Spec In Lab Charlene Long MD CHEMISTRY ORDERABLES Performing Organization Address City/[facility]/ZIP Code Phon e Number [address] [facility] MILLENNIUM Gold Tube HOLD (10/24/2015 3:16 PM EST) P athologist Signature Gold Hold Sample in [facility] lab. [facility] Specimen Anatomical Collection Method Collection Time Receive d Time (Source) Location / / Volume Laterality Blood specimen Venous Draw / 10/24/2015 3:16 PM 2015 3:47 (specimen) Unknown EST PM EST Charlene Long MD CHEMISTRY ORDERABLES Performing Organization Address City/[facility]/[place] [address] [facility] MILLENNIUM Blue Tube HOLD (10/24/2015 3:16 PM EST) P athologist Signature Blue Hold Sample in [facility] lab. [facility] Specimen Anatomical Collection Method Collection Time Receive d Time (Source) Location / / Volume Laterality Blood specimen Venous Draw / 10/24/2015 3:16 PM 2015 3:46 (specimen) Unknown EST PM EST Charlene Long MD HEMATOLOGY ORDERABLES Performing Organization Address City/[facility]/ZIP Code Phon e Number [address] CERNER MILLENNIUM (ABNORMAL) Differential, Automated (10/24/2015 3:16 PM EST) [facility] gist Method Time Signature Neutrophils % 86.7 % CERNER MILLENNIUM Neutr Abs (ANC) 5.57 1.50 - CERNER 6.30 MILLENNIUM x10(3)/mcL Lymphocytes % 10.4 % CERNER MILLENNIUM Lymphocytes Abs 0.7 (L) 1.0 - 3.6 CERNER x10(3)/mcL MILLENNIUM Monocytes % 2.2 % CERNER MILLENNIUM Monocyte Abs 0.1 (L) 0.2 - 1.0 CERNER x10(3)/mcL MILLENNIUM Eosinophils % 0.0 % CERNER MILLENNIUM Eosinophils Abs 0.0 0.0 - 0.5 CERNER x10(3)/mcL MILLENNIUM Basophils % 0.2 % CERNER MILLENNIUM Basophils Abs 0.0 0.0 - 0.2 CERNER x10(3)/mcL MILLENNIUM Immature Gran % 0.50 % CERNER MILLENNIUM Comment: Immature granulocytes(IG's)percentage an d absolute count will include metamyelocytes, myelocytes, and promyelo cytes. Blood smears from CBCs yielding IG's will be scanned manually for concor dance. If this scan disagrees with the automated IG or if promyelocytes are not ed, a manual differential will be performed. Lida Gran Abs 0.03 0.00 - 0.05 x10(3)/mcL CER NER MILLENNIUM Specimen Anatomical Collection Method Collection Time Receive d Time (Source) Location / / Volume Laterality Blood specimen 10/24/2015 3:16 PM 016 3:45 (specimen) EST PM EST Resulting Agency Comment Spec In Lab Charlene Long MD HEMATOLOGY ORDERABLES Performing Organization Address City/[facility]/ZIP Code Phon e Number [address] CERNER MILLENNIUM (ABNORMAL) Hemogram (10/24/2015 3:16 PM EST) athologist Signature WBC 6.4 4.0 - 10.0 CERNER x10(3)/mcL MILLENNIUM RBC 4.04 3.93 - CERNER 5.22 MILLENNIUM x10(6)/mcL Hemoglobin 11.9 11.2 - CERNER 15.7 gm/dL MILLENNIUM Hematocrit 35.1 34.0 - CERNER 45.0 % MILLENNIUM MCV 86.9 79.0 - CERNER 94.0 fL MILLENNIUM MCH 29.5 26.6 - CERNER 32.2 pg MILLENNIUM MCHC 33.9 32.0 - CERNER 36.5 gm/dL MILLENNIUM Platelets 383 (H) 145 - 370 CERNER x10(3)/mcL MILLENNIUM RDWSD 47.8 (H) 35.0 - CERNER 46.0 fL MILLENNIUM RDWCV 15.1 (H) 10.9 - CERNER 14.4 % MILLENNIUM MPV 10.0 9.0 - 12.0 CERNER fL MILLENNIUM Specimen Anatomical Collection Method Collection Time Receive d Time (Source) Location / / Volume Laterality Blood specimen 10/24/2015 3:16 PM 016 3:45 (specimen) EST PM EST Resulting Agency Comment Spec In Lab Charlene Long MD HEMATOLOGY ORDERABLES Performing Organization Address City/State/ZIP Code Phon e Number [address] [facility] MILLENNIUM High Sensitivity CRP (10/24/2015 3:16 PM EST) athologist Signature CRP High Sens 1.1 mg/L [facility] Comment: Interpretations: 1) For accurate cardiac [...] Location / / Volume Laterality Blood specimen 10/24/2015 3:16 PM 016 3:45 (specimen) EST PM EST Resulting Agency Comment Spec In Lab Charlene Long MD CHEMISTRY ORDERABLES Performing Organization Address City/[facility]/[place] [address] CERNER MILLENNIUM (ABNORMAL) Sedimentation rate (10/24/2015 3:16 PM EST) P athologist Signature Sed Rate 42 (H) 0 - 20 CERNER mm/hr MILLENNIUM Specimen Anatomical Collection Method Collection Time Receive d Time (Source) Location / / Volume Laterality Blood specimen 10/24/2015 3:16 PM 016 3:45 (specimen) EST PM EST Resulting Agency Comment Spec In Lab Charlene Long MD HEMATOLOGY ORDERABLES Performing Organization Address City/[facility]/[place] [address] CERNER MILLENNIUM Glucose, random (10/24/2015 3:16 PM EST) P athologist Signature Glucose Lvl 144 65 - 199 CERNER mg/dL MILLENNIUM Comment: Diabetes: >=200 mg/dL plus symp toms Specimen Anatomical Collection Method Collection Time Receive d Time (Source) Location / / Volume Laterality Blood specimen 10/24/2015 3:16 PM 016 3:45 (specimen) EST PM EST Resulting Agency Comment Spec In Lab Charlene Long MD CHEMISTRY ORDERABLES Performing Organization Address City/[facility]/ZIP Code Phon e Number [place] [id number] CERNER MILLENNIUM (ABNORMAL) Creatinine (10/24/2015 3:16 PM EST) athologist Signature Creatinine 1.00 0.70 - 1.20 CERNER mg/dL MILLENNIUM Comment: Please note that the pediatric reference intervals supplied above were not validated at [facility]. Results from pediatri c patients should be interpreted in conjunction to the patient's age, height and muscle mass. Estimated GFR 54 (L) >=60 CERNER MILLENNIU M Comment: This estimated GFR (eGFR) value was [...] the following links into your internet browser. [email or web address] Specimen Anatomical Collection Method Collection Time Receive d Time (Source) Location / / Volume Laterality Blood specimen 10/24/2015 3:16 PM 016 3:45 (specimen) EST PM EST Resulting Agency Comment Spec In Lab Charlene Long MD CHEMISTRY ORDERABLES Performing Organization Address City/State/ZIP Code Phon e Number [place] [id number] [facility] [address] CERNER MILLENNIUM (ABNORMAL) Electrolytes panel (10/24/2015 3:16 PM EST) athologist Signature Sodium 132 (L) 135 - 145 CERNER mmol/L MILLENNIUM Potassium 3.7 3.5 - 5.0 CERNER mmol/L MILLENNIUM Comment: Please note: ??Patients with WBC >100,00 0 may have falsely elevated Potassium levels. ??For accurate Potassium quantif ication in these patients send serum separator tube (gold top) for subsequent determinations. ??Contact the Clinical Chemistry Laboratory if there are any qu estions. Chloride 93 (L) 98 - 107 mmol/L CERNER MILLENN IUM CO2 26 22 - 31 mmol/L CERNER MILLENNI UM Anion Gap 13 5 - 15 mmol/L CERNER MILLENNIU M Specimen Anatomical Collection Method Collection Time Receive d Time (Source) Location / / Volume Laterality Blood specimen 10/24/2015 3:16 PM 016 3:45 (specimen) EST PM EST Resulting Agency Comment Spec In Lab Charlene Long MD CHEMISTRY ORDERABLES Performing Organization Address City/[facility]/[place] [address] CERNER MILLENNIUM (ABNORMAL) BUN (10/24/2015 3:16 PM EST) P athologist Signature BUN 20 (H) 8 - 18 CERNER mg/dL MILLENNIUM Specimen Anatomical Collection Method Collection Time Receive d Time (Source) Location / / Volume Laterality Blood specimen 10/24/2015 3:16 PM 016 3:45 (specimen) EST PM EST Resulting Agency Comment Spec In Lab Charlene Long MD CHEMISTRY ORDERABLES Performing Organization Address City/State/ZIP Code Phon e Number [address] CERNER MILLENNIUM documented in this encounter Visit Diagnoses Diagnosis Giant cell arteritis documented in this encounter Admitting Diagnoses Diagnosis Giant cell arteritis documented in this encounter Administered Medications Inactive Administered Medications - up to 3 most recent administrations Medication Order MAR Action Action Date Dose Rate Site acetaminophen (TYLENOL) tablet Given 10/26/2015 10:03 PM EST 650 mg 650 mg 650 mg, Oral, EVERY 4 HOURS PRN, Starting on 10/24/15 at 2222, Until Radha 10/27/15 at 1212, Pain, Maximum dose of acetaminophen is 4000 mg from all sources in 24 hours., Routine Given 10/25/2015 11:36 PM EST 650 mg Given 10/25/2015 9:31 AM EST 650 mg amLODIPine (NORVASC) tablet 5 mg Given 10/27/2015 8:56 AM EST 5 mg 5 mg, Oral, DAILY, First dose on Sat10/25/15 at 0900, Until Discontinued, Routine Given 10/26/2015 9:01 AM EST 5 mg Given 10/25/2015 9:24 AM EST 5 mg amLODIPine (NORVASC) tablet 5 mg Given 10/24/2015 9:52 PM EST 5 mg 5 mg, Oral, ONCE, 1 dose, On Sat10/24/15 at 2200, Routine aspirin chewable tablet 81 mg Given 10/27/2015 8:56 AM EST 81 mg 81 mg, Oral, DAILY, First dose on Sat10/26/15 at 1730, Until Discontinued, Routine Given 10/26/2015 6:18 PM EST 81 mg calcium carbonate (TUMS) chewable tablet Given 10/26/2015 11 :24 PM EST 1,000 mg 1,000 mg 1,000 mg, Oral, 3 TIMES DAILY PRN, Starting on Sat10/26/15 at 2158, Until Sat10/27/15 at 1212, Heartburn, Routine escitalopram oxalate (LEXAPRO) tablet 10 mg Given 10/27/2015 8:56 AM EST 10 mg 10 mg, Oral, DAILY, First dose on Sat10/25/15 at 0900, Until Discontinued, Routine Given 10/26/2015 9:00 AM EST 10 mg Given 10/25/2015 9:24 AM EST 10 mg hydrochlorothiazide (HYDRODIURIL) tablet 25 mg Given 10/27/2015 8:56 AM EST 25 mg 25 mg, Oral, EVERY MORNING, First dose on Sat10/25/15 at 0900, Until Discontinued, Routine Given 10/26/2015 9:00 AM EST 25 mg Given 10/25/2015 9:24 AM EST 25 mg ketorolac (TORADOL) injection 30 mg Given 10/24/2015 3:31 PM EST 30 mg 30 mg, Intravenous, ONCE, 1 dose, On Sat10/24/15 at 1517, STAT methylPREDNISolone sodium succinate Given 10/24/2015 4:13 PM EST 1,000 mg 216 mL/hr (PF) (solu-MEDROL) 1,000 mg in sodium chloride 0.9% 108 mL 1,000 mg, Intravenous, ONCE, 1 dose, On Sat10/24/15 at 1530, Administer over 30 Minutes methylPREDNISolone sodium Given 10/26/2015 12:17 PM EST 1,000 mg 216 mL/hr succinate (PF) (solu-MEDROL) 1,000 mg in sodium chloride 0.9% 108 mL 1,000 mg, Intravenous, DAILY, 2 doses, First dose on Sat10/25/15 at 1200, Last dose on Sat10/26/15 at 1200, Administer over 30 Minutes methylPREDNISolone sodium Given 10/27/2015 10:16 AM EST 1,000 mg 216 mL/hr succinate (PF) (solu-MEDROL) 1,000 mg in sodium chloride 0.9% 108 mL 1,000 mg, Intravenous, ONCE, 1 dose, On Radha 10/27/15 at 1030, Administer over 30 Minutes sodium chloride 0.9 % flush 5 mL Given 10/27/2015 8:57 AM EST 5 mLs 5 mL, Intravenous, 2 TIMES DAILY, First dose on Sat10/24/15 at 2100, Until Discontinued, Routine Given 10/26/2015 9:00 PM EST 10 mLs Given 10/26/2015 9:00 AM EST 5 mLs sulfamethoxazole-trimethoprim (BACTRIM DS) Given 10/26 9:00 AM EST 1 tablet 800-160 mg per tablet 1 tablet 1 tablet, Oral, THREE TIMES WEEKLY (Sat, , Sat) (Once per day on Sat), First dose on Sat10/26/15 at 0900, Until Discontinued, Routine, Indication for (Active or Suspected): Prophylaxis documented in this encounter Active and Recently Administered Medications Times are shown in EST. Scheduled Medication Order 10/25/2015 10/26/2015 10/27/2015 amLODIPine (NORVASC) tablet 5 mg (CANCELED) 0924 (Give n - Provider: Sandra Gonzalez RN)1537 (DEC Hold - Provider: Admin Adt - Reason: Transfer to a Procedural area)1859 (DEC Unhold - Provider: Admin Adt) 0901 (Given - Provider: Sandra Gonzalez RN) 0856 (Given - Provider: Chrissy Stephenson) 5 mg, Oral, DAILY, First dose on 10/14 at 0900, Until Discontinued, Routine aspirin chewable tablet 81 mg (CANCELED) 1818 (Given - Provider: Sandra Gonzalez RN) 0856 (Given - Provider: Chrissy Stephenson) 81 mg, Oral, DAILY, First dose on Sat at 1730, Until Discontinued, Routine escitalopram oxalate (LEXAPRO) tablet 10 mg (CANCELED) 0924 (Given - Provider: Sandra Gonzalez RN)1537 (DEC Hold - Provider: Admin Adt - Reason: Transfer to a Procedural area)185 (DEC Unhold - Provider: Admin Adt) 0900 (Given - Provider: Sandra Gonzalez RN) 0856 (Given - Provider: Chrissy Stephenson) 10 mg, Oral, DAILY, First dose on 09/28 at 0900, Until Discontinued, Routine hydrochlorothiazide (HYDRODIURIL) tablet 25 mg (CANCEL ED) 0924 (Given - Provider: Sandra Gonzalez RN)1537 (DEC Hold - Provider: Admin Adt - Reason: Transfer to a Procedural area)185 (DEC Unhold - Provider: Admin Adt) 0900 (Given - Provider: Sandra Gonzalez RN) 0856 (Given - Provider: Chrissy Stephenson) 25 mg, Oral, EVERY MORNING, First dose o n Sat10/25/15 at 0900, Until Discontinued, Routine methylPREDNISolone sodium succinate (PF) (solu-MEDROL) 1,000 mg in sodium chloride 0.9% 108 mL () 1200 (Due)1537 (DEC Hold - Provider: Adm in Adt - Reason: Transfer to a Procedural area)1858 (DEC Unhold - Provider: Admin Adt) 1217 (Given - Provider: Sandra Gonzalez RN) 1,000 mg, Intravenous, DAILY, 2 doses, F irst dose on Sat10/25/15 at 1200, Last dose on Sat10/26/15 at 1200, for 30 Minutes methylPREDNISolone sodium succinate (PF) (solu-MEDROL) 1,000 mg in sodium chloride 0.9% 108 mL (COMPLETED) 1016 (G iven - Provider: Chrissy Stephenson) 1,000 mg, Intravenous, ONCE, 1 dose, Radha 10/27/15 at 1030, for 30 Minutes sodium chloride 0.9 % flush 5 mL (CANCELED) 0929 (Give n - Provider: Sandra Gonzalez RN)1537 (DEC Hold - Provider: Admin Adt - Reason: Transfer to a Procedural area)185 (DEC Unhold - Provider: Admin Adt)2013 (Given - Provider: Patricia Lynch RN) 0900 (Given - Provider: Sandra bridges RN)2100 (Given - Provider: Patricia Lynch RN) 0857 (Given - Provider: Chrissy Stephenson) 5 mL, Intravenous, 2 TIMES DAILY, First dose on Sat10/24/15 at 2100, Until Discontinued, Routine sulfamethoxazole-trimethoprim (BACTRIM D S) 800-160 mg per tablet 1 tablet (CANCELED) 1537 (DEC Hold - Provider: Admin Adt - R dewey: Transfer to a Procedural area)1859 ([facility] Unhold - Provider: Admin Adt) 0900 (Given - Provider: Sandra Gonzalez RN) 1 tablet, Oral, THREE TIMES WEEKLY (Once per day on Sat), First dose on Sat10/26/15 at 0900, Until Discontinued, Routine PRN Medication Order 10/25/2015 10/26/2015 10/27/2015 acetaminophen (TYLENOL) tablet 650 mg (CANCELED) 0931 (Given - Provider: Sandra Gonzalez RN)1537 ([facility] Hold - Provider: Admin Adt - Reason: Transfer to a Procedural area)1859 ([facility] Unhold - Provider: Admin Adt)2336 (Given - Provider: Patricia Lynch RN) 2203 (Given - Provider: Patricia Lynch RN) 650 mg, Oral, EVERY 4 HOURS PRN, Startin g Sat10/24/15 at 2222, Until Radha 10/27/15 at 1212, Pain, Maximum dose of acetaminophen is 4000 mg from all sources in 24 hours., Routine calcium carbonate (TUMS) chewable tablet 1,000 mg (CANCELED) 2324 (Given - Provider: Patricia Lynch RN) 1,000 mg, Oral, 3 TIMES DAILY PRN, Start ing Sat10/26/15 at 2158, Until Sat10/27/15 at 1212, Heartburn, Routine lidocaine (PF) (XYLOCAINE) 10 mg/mL (1 %) injection (C ANCELED) 1648 (Given - Provider: Sukhdev Bhatti MD - Comment: Injected to surgical site.) ONCE PRN, Starting Sat10/25/15 at 1649, Until Sat10/25/15 at 1815, Intra- Operative (Intra-Procedure), Routine documented in this encounter Care Teams Surveyor'S Assistant Relationship Specialty Start Date End Date Zoey Lucas MD PCP - General 09/05/[address] [place] [address] documented as of this encounter
--- OUTSIDE RECORDS SUMMARY | 2022-07-27 00:19 | XMS_ITS | Encounter Summary ---
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 Language: Surinamese Race: White Ethnicity: Not nor Admit date: 10/24/2015 Discharge date and time: 10/27/2015 5:11 PM Attending Physician: Rebeca att. providers found Discharge Physician: Camron Al MD Follow-up Recommendations for Providers: - Recommend DEXA scan given need for laboratory secretary steroids, and may need bisphosphonates - She [...] please contact your inpatient physician through the [facility] Birthing Nurse . Issues after hours and on weekends [...] often has allergies. She did see an networking specialist in September, who said her eye exam [...] Studies and Lab Data: Labs: Recent Labs 10/27/15 0356 10/26/15 0629 10/25/15 0443 WBC 10.8* 12.3* 9.0 HGB 11.7 11.5 12.3 HCT 34.7 34.2 36.2 PLATELET 386* 380* 426* Recent Labs 10/27/15 0356 10/26/15 0629 10/25/15 0443 NA 133* 133* 135 K 4.4 3.8 3.7 CL 93* 94* 94* CO2 25 26 24 BUN 30* 30* 25* CREATININE 1.14 1.07 1.03 No results for input(s): AST, ALT, ALKPHOS, BILITOT, BILIDIR in the last 168 hours. Recent Labs 10/27/15 0356 10/26/15 0629 10/25/15 0443 CALCIUM 9.2 8.9 9.3 [...] Your Primary Care Provider: ZOEY LUCAS MD [phone] For questions regarding this document or issues relating to this hospitalization on the Medical Service, please contact your inpatient physician through the [facility] Birthing Nurse . Issues after hours and on weekends will be handled by the Hospitalist staff on-call. General Instructions None Future Appointments Provider Department Dept Phone 11/04/2015 1:00 PM VISUAL FIELD Ophthalmology [phone] 11/04/2015 1:30 PM Primo Rodríguez MD Ophthalmology [phone] 11/22/2015 2:45 PM Cliff Kline MD Rheumatology [phone] Discharge References/Attachments None documented in this encounter Discharge Instructions Patient InstructionsSolis Martel MD - 10/25/2015 9:06 PM EST Instructions [...] Your Primary Care Provider: ZOEY LUCAS MD [phone] For questions regarding this document or issues relating to this hospitalization on the Medical Service, please contact your inpatient physician through the [facility] Birthing Nurse . Issues after hours and on weekends [...] EST Office of Care Management (OCM) / Electric Meter Repairer(CM)/ Initial Assessment Electric Meter Repairer: Yoli Montana RN Pager #[phone] Service: YAYA Red service, pager #[phone]. Reviewed record and discussed pt in rounds with Charge/Resource RN, grocery sacker, PT, CM and with Provider Team. Reviewed [...] Education: N/A Occupational History ??? retired from [employer] Social History Main Topics ??? Smoking [...] / FAMILY SUPPORTS: pt has children in [place], [place], [place] and [place]. Her son will be staying with her over the weekend. ADVANCE DIRECTIVES: None on file. HEALTH /PRESCRIPTION COVERAGE: Insurance as of 10/26/2015 Payor Plan Group Member Effective Dates MEDICARE MEDICARE PART A & B [[id number]] [id number] 05/14/2006 - Subscriber: JAVIER JOE [[id number]] Guarantor : JAVIER JOE [facility] FED[facility] [[id number]] 111 [id number] 06/26/2008 - Subscriber: JAVIER JOE [[id number]] Guarantor : JAVIER JOE CURRENT HOME/COMMUNITY SERVICES/EQUIPMENT: DME: none Home Health Agency: none Other: BIOPHYSICS TEACHER REFERRAL: not needed at this time or Notified for: PRIMARY CARE PHYSICIAN: ZOEY LUCAS MD [address] [place] [address] / [place] [address] POTENTIAL DISCHARGE NEEDS: None anticipated. ANTICIPATED BARRIERS TO DISCHARGE: none anticipated TRANSPORTATION @ D/C: family or friend to drive home. Will be here to pickle pumper tomorrow btwn 11-12. PLAN: CM will continue to monitor progress, follow for continuity of care and assist with discharge planning while hospitalized . Nahum Patterson - 10/26/2015 8:12 AM EST Vascular Surgery Recovering very well postoperatively from bilateral temporal artery biopsy. Wounds without drainage or hematoma. Skin glue intact. Patient instructions below, no follow up typically needed. Please do not hesitate to call with questions. Nahum De Paz [phone]. Instructions Following Temporal Artery Biopsy Wound Care: [...] For any questions or concerns please call [phone] Camron Brannon MD - 10/26/2015 7:32 AM EST Hospital [...] status: Full Code SOLIS MARTEL MD (PGY-1) [facility] Medicine Red Team, pager [phone] I have seen the patient and reviewed [...] Note Patient: Javier Joe s/p Surgery: 10/25/2015 [id number] Procedure(s) (LRB): LIGATION OR BIOPSY, TEMPORAL ARTERY (Bilateral) Surgeon(s) and Role: * Sukhdev Bhatti MD - Primary * Nahum De Paz MD - Resident-Surgeon Mazin: 1 Hr 16 Min 15 Sec * No complications entered in OR log * Short History: awakened from anesthesia, extubated and taken to the recovery room in a stable condition, having suffered no apparent untoward event. Patient location: Med Surgical Floor Post-op Consciousness awake, alert and [...] Al MD - 10/25/2015 7:10 AM EST Hospital Medicine Progress Note Date of Admission: 10/24/2015 ( Hospital Day 1 day ) Responsible Attending: Varsha Green MD ID: Javier Joe is a 75 [...] 302 NEUTROABS 8.16* 5.57 4.51 Recent Labs 10/25/153 10/24/15 1516 10/20/15 1118 NA 135 132* -- K 3.7 3.7 -- CL 94* 93* -- CO2 24 26 -- BUN 25* 20* -- CREATININE 1.03 1.00 0.82 Recent Labs 10/25/15 0443 CALCIUM 9.3 Recent Labs 10/25/15 0443 GLUCOSE 136 Recent Labs 10/25/15 0443 10/24/15 [...] status: Full Code SOLIS MARTEL MD (PGY-1) [facility] Medicine Red Team, pager [phone] I have seen the patient and reviewed [...] PCP: ZOEY LUCAS MD PCP phone number: [phone] Date of Admission: 10/24/2015 ( Hospital Day [...] often has allergies. She did see an networking specialist in September, who said her eye exam [...] Education: N/A Occupational History ??? retired from [employer] Social History Main Topics ??? Smoking status: Former Smoker Quit date: 10/20/1983 ??? Smokeless tobacco: Not on file ??? Alcohol Use: Yes Comment: occasionaly ??? Drug Use: No ??? Sexual Activity: Not on file Other Topics Concern ??? Not on file Social History Narrative Lives alone on [place]. Was a smoker until 1983. Drinks socially, but no EtOH since . Physical exam: Last value Range last 24 [...] MD, PGY-1 Hospital Medicine Red Team Pager [phone] I have seen the patient and reviewed [...] AM. Advised by rhematology to present to [facility] ER for admission for IV steroids. [...] Education: N/A Occupational History ??? retired from [employer] Social History Main Topics ??? Smoking [...] Mood/Affect: Normal Additional Tests Color Right Left Aoflg-Kyzc-Nlabrqh 9.5/10 4/4 Unable to HRR OS. Gross [...] to assess orbital apex. F/u 1 week Primo Rodríguez MD 10/28/2015 Plan of Care - JaeljackieChrissy D - 10/27/2015 12:12 PM EST Problem: General [...] Outcome: Ongoing (Interventions Implemented as Appropriate) 10/24/15 2609 Mutuality/Individual Preferences What anxieties, fears or concerns [...] Handling Outcome: Ongoing (Interventions Implemented as Appropriate) 10/26/1540910/26/15195710/27/15 0213 Canales Fall Risk History of Falling [...] Control Outcome: Ongoing (Interventions Implemented as Appropriate) 10/26/15195710/26/15 220 Coping/Psychosocial Response Interventions Counseling calming techniques promoted;emotional [...] 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: beta blockers FHx: melanoma- [...] Outcome: Ongoing (Interventions Implemented as Appropriate) 10/25/15203910/25/15 2338 Coping/Psychosocial Response Interventions Counseling calming techniques promoted;emotional support provided;goal setting facilitated;personal strengths integrated;problem solving facilitated;reassurance provided;relaxation techniques promoted;understanding of situation facilitated;verbalization of feelings encouraged -- Safety Interventions Isolation Precautions -- standard precautions maintained Infection Prevention environmental surveillance;hydration promoted;nutrition promoted;promote handwashing;rest/sleep promoted -- Goal: Discharge Needs Assessment Outcome: Ongoing (Interventions Implemented as Appropriate) 10/24/15 220 Living Environment Transportation Available car Problem: Skin Integrity Impairment, Risk/Actual (Adult, Obstetrics) Goal: Identify Signs and Symptoms and Related Risk Factors Signs and symptoms and related risk factors are identified upon initiation of Human Response Clinical Practice Guideline (CPG) Outcome: Ongoing (Interventions Implemented as Appropriate) Goal: Skin Integrity/Wound Healing Patient will demonstrate the desired outcomes. 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 Pt c/o headache 10, PRN Tylenol given with good effect. Pt [...] PREVENTION: Assistance: walker Supervision: 1 assist Surveillance: Revaimo, bed alarm CPG OUTCOME EVALUATION: Op Note - Nahum De Paz - 10/25/2015 5:28 PM EST [facility] Operative Note Patient Name: Javier Joe : 1940 MR#: [id number] Case Date: 10/25/2015 Date of Operation: 10/25/2015. [...] with a history of hypertension who over tyrell developed the gradual onset of bilateral jaw claudication with visual changes [facility]. Plan for bilateral temporal artery [...] Operative Note Patient Name: Javier Joe : [id number] MR#: [id number] Case Date: 10/25/2015 Surgeon: Surgeon(s) and Role: [...] Infection Bundle used? N/A Consult Note - Nahum De Paz Bean - 10/25/2015 12:59 PM EST Patient Name: [...] with a history of hypertension who over tyrell developed the gradual onset of bilateral jaw claudication. She attributed this to an illness which some of her friends and family had. She then noted peripheral vision changes in her left eye. 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 She is [...] Education: N/A Occupational History ??? retired from [employer] Social History Main Topics ??? Smoking [...] with a history of hypertension who over tyrell developed the gradual onset of bilateral jaw claudication with visual changes currently being treated by the [facility] for GCA. Plan for bilateral temporal artery biopsy. Recommendation: Bilateral TAB at next available OR time, please keep NPO. Discussed with Dr. Bhatti. Nahum Felixkathia [phone]. Plan of Care - Patricia Lynch RN [...] Control Outcome: Ongoing (Interventions Implemented as Appropriate) 10/24/15215610/25/1546 Coping/Psychosocial Response Interventions Counseling calming techniques promoted;emotional [...] a 75 y.o. female who presented to [facility] on 10/24/14 for worsening visual changes. 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 If this scan disagrees with the [...] Long MD HEMATOLOGY ORDERABLES Performing Organization Address City/[facility]/ZIP Code Phon e Number [address] CERNER MILLENNIUM (ABNORMAL) Hemogram (10/27/2015 [...] Long MD HEMATOLOGY ORDERABLES Performing Organization Address City/[facility]/[place] [address] CERNER MILLENNIUM (ABNORMAL) Sedimentation rate (10/27/2015 3:56 AM EST) P athologist Signature Sed Rate 25 (H) 0 - 20 CERNER mm/hr MILLENNIUM Specimen Anatomical Collection Method Collection Time Receive d Time (Source) Location / / Volume Laterality Blood specimen 10/27/2015 3:56 AM 016 4:01 (specimen) EST AM EST Resulting Agency Comment Spec In Lab Varsha Aiken MD HEMATOLOGY ORDERABLES Performing Organization Address City/State/ZIP Code Phon e Number [place] [id number] CERNER MILLENNIUM (ABNORMAL) Basic [...] intervals supplied above were not validated at [facility]. Results from pediatri c patients should be [...] NIUM Estimated GFR 47 (L) >=60 CERNER MILLENNIU M Comment: This [...] the following links into your internet browser. [email or web address] [email or web address]/DHMCnkf Specimen Anatomical Collection Method Collection Time Receive d Time (Source) Location / / Volume Laterality Blood specimen 10/27/2015 3:56 AM 016 4:01 (specimen) EST AM EST Resulting Agency Comment Spec In Lab Charlene Long MD CHEMISTRY ORDERABLES Performing Organization Address City/State/ZIP Code Phon e Number [place] [id number] CERNER MILLENNIUM (ABNORMAL) Differential, Automated (10/26/2015 6:29 AM EST) [facility] Method Time Signature Neutrophils % 66.7 [...] Long MD HEMATOLOGY ORDERABLES Performing Organization Address City/[facility]/[place] [address] CERNER MILLENNIUM (ABNORMAL) Hemogram [...] Long MD HEMATOLOGY ORDERABLES Performing Organization Address City/[facility] [place] [place] [address] CERNER MILLENNIUM Sedimentation rate (10/26/2015 6:29 AM EST) P athologist Signature Sed Rate 20 0 - 20 CERNER mm/hr MILLENNIUM Specimen Anatomical Collection Method Collection Time Receive d Time (Source) Location / / Volume Laterality Blood specimen 10/26/2015 6:29 AM 016 6:48 (specimen) EST AM EST Resulting Agency Comment Spec In Lab Varsha Aiken MD HEMATOLOGY ORDERABLES Performing Organization Address City/State/[place] [address] CERNER MILLENNIUM (ABNORMAL) Basic [...] intervals supplied above were not validated at [facility]. Results from pediatri c patients should be [...] the following links into your internet browser. [email or web address]/DHnkdep [email or web address]/DHMCnkf Specimen Anatomical Collection Method Collection Time Receive d Time (Source) Location / / Volume Laterality Blood specimen 10/26/2015 6:29 AM 016 6:48 (specimen) EST AM EST Resulting Agency Comment Spec In Lab Charlene Long MD CHEMISTRY ORDERABLES Performing Organization Address City/State/[place] [address] [facility] [address] [facility] CT Orbits Wo Contrast (10/25/2015 8:51 PM [...] PM 6 5:17 EST PM EST Narrative [facility] - 10/25/2015 5:[address] Specimen requisition ordered. ??Separate Pathology report to follow Camron Al MD PATHOLOGY/CYTOLOGY ORDERABLE S Performing Organization Address City/State/[place] [address] [facility] Surgical Pathology Report (10/25/2015 4:47 PM EST) [facility] Method Time Signature Surgical [id number] ? Location: [address] [place] [address] Report The signing pathologist has (i) examined [...] Organization Address City/State/[place] [address] [facility] Specimen to Pathology (surgical or derm) (10/25/2015 4:47 PM EST) Specimen Anatomical Collection Method Collection Time Receive d Time (Source) Location / / Volume Laterality AP Specimen 10/25/2015 4:47 PM 6 4:47 EST PM EST Narrative [facility] - 10/25/2015 4:[address] Specimen requisition ordered. ??Separate Pathology report to follow Varsha Aiken MD PATHOLOGY/CYTOLOGY ORDERABLE S Performing Organization Address City/[facility]/ZIP [facility] [place] [address] [employer] [facility] ECHOCARDIOGRAM COMPLETE (10/25/2015 3:39 PM EST) P athologist Signature EF 65 [facility]ART[facility] Anatomical Region Laterality Modality Other Specimen (Source) Anatomical Location Collection Method / Collectio n Time Received Time / Laterality Volume 10/25/2015 Narrative 10/25/2015 4:42 PM EST Procedure: ?Transthoracic Echocardiogram Patient: ?THIERNO Melara ?(Age): 1940(75y) Med Rec#: ? [id number] ?Sex: ?F ? Site Loc: ? [facility] ?Ht / Wt: ??160(cm)/72(kg) Pt. Loc: ?Adult Floor ? BSA: ?1.75 Study Date: ?? 10/25/2015 ?Pt. Type: Inpatient Tape: ? Referring: Charlene Long Reading: Moy Purvis ([id number]) Banquet Set Up Person: Mone Avila [facility] Diagnosis: *ICD-10-PCS Other giant cell arteritis (M31.6) CPT Codes: *Echo Full (04122) *Spectral Doppler (46288) *Color Doppler (70642) Rhythm: ? Sinus BP: ? 137/68 SUMMARY: [...] ?The ascending aorta is normal in s ize. Pulmonary Artery: ? The main pulmona ry [...] E-wave Vmax ?0.8 ?m/sec ? MV deceleration [id number] ?msec ? MV A-wave Vmax ?1 ?m/sec [...] ? Mid-Inferior ?Normal ? Mid-Inferoseptal ?Normal ? [place]-Septal ? Normal ? [place]-Anterior ? Normal ? [place]-Lateral ?Normal ? [place]-Inferior ? Normal ? [place]-Tip ?Normal ? This report has been electronically sign ed by: _ Moy Purvis MD ? 10/25/2015 1 6:41:43 Images reviewed and interpretation verif ied [facility] Cardiac Ultrasound Laboratory Procedure Note Moy Purvis MD - 10/25/2015Format ting of this note might be different from the original. Procedure: Transthoracic Echocardiogram Patient: THIERNO Melara (Age): 1939(75y) Med Rec#: [id number] Sex: F Site Loc: [facility] Ht / Wt: 160(cm)/72(kg) Pt. Loc: Adult Floor BSA: 1.75 Study Date: 10/25/2015 Pt. Type: Inpatie nt Tape: Referring: Charlene Long Reading: Moy Purvis ([id number]) Banquet Set Up Person: Mone Avila [facility] Diagnosis: *ICD-10-PCS Other giant cell arteritis (M31.6) CPT Codes: *Echo Full (30108) *Spectral Doppler (15362) *Color Doppler (24614) Rhythm: Sinus BP: 137/68 SUMMARY: 1. The [...] regurgitation p resent. Pericardium: The pericardium appears nor mal and there is no evidence of a [...] MV E-wave Vmax 0.8 m/sec MV deceleration [id number] msec MV A-wave Vmax 1 m/sec MV [...] Normal Mid-Posterolateral Normal Mid-Inferior Normal Mid-Inferoseptal Normal [place]-Septal Normal [place]-Anterior Normal [place]-Lateral Normal [place]-Inferior Normal [place]-Tip Normal This report has been electronically sign ed by: _ Moy Purvis MD 10/25/2015 16:41:4 3 Images reviewed and interpretation verif ied [facility] Cardiac Ultrasound Laboratory Charlene Long MD ECHO ORDERABLES Temporal artery duplex (10/25/2015 9:28 AM EST) Component Value Ref Test Analysis Performed At [facility] Range Method Time Signature VB Text Department: Vascular Surgery Lab VASCUBASE Report Patient: [id number] (JAVIER JOE) CPT: 40983 ICD10: M31.6 Referring Physician: SUKHDEV BHATTI ?? [...] Long MD HEMATOLOGY ORDERABLES Performing Organization Address City/[facility]/[place] [address] CERNER MILLENNIUM (ABNORMAL) Differential, [...] Long MD HEMATOLOGY ORDERABLES Performing Organization Address City/[facility]/[place] [address] CERNER MILLENNIUM (ABNORMAL) Hemogram [...] Long MD HEMATOLOGY ORDERABLES Performing Organization Address City/[facility]/[place] [address] CERNER MILLENNIUM (ABNORMAL) Basic [...] intervals supplied above were not validated at [facility]. Results from pediatri c patients should be [...] the following links into your internet browser. [email or web address] http://[employer]/DHMCnkf Specimen Anatomical Collection Method Collection Time Receive d Time (Source) Location / / Volume Laterality Blood specimen 10/25/2015 4:43 AM 016 4:58 (specimen) EST AM EST Resulting Agency Comment Spec In Lab Charlene Long MD CHEMISTRY ORDERABLES Performing Organization Address City/[facility]/[place] [address] CERNER MILLENNIUM TSH (10/24/2015 3:16 PM EST) P athologist Signature TSH 0.40 0.27 - 4.20 CERNER mcIU/mL MILLENNIUM Specimen Anatomical Collection Method Collection Time Receive d Time (Source) Location / / Volume Laterality Blood specimen Venous Draw / 10/24/2015 3:16 PM 2015 3:50 (specimen) Unknown EST PM EST Resulting Agency Comment Spec In Lab Charlene Long MD CHEMISTRY ORDERABLES Performing Organization Address City/[facility]/[place] [address] CERNER MILLENNIUM Gold Tube HOLD (10/24/2015 3:16 PM EST) P athologist Signature Gold Hold Sample in CERNER lab. MILLENNIUM Specimen Anatomical Collection Method Collection Time Receive d Time (Source) Location / / Volume Laterality Blood specimen Venous Draw / 10/24/2015 3:16 PM 2015 3:47 (specimen) Unknown EST PM EST Charlene Long MD CHEMISTRY ORDERABLES Performing Organization Address City/[facility]/[place] [address] CERNER MILLENNIUM Blue Tube HOLD (10/24/2015 3:16 PM EST) P athologist Signature Blue Hold Sample in Map[facility] lab. MILLENNIUM Specimen Anatomical Collection Method Collection Time Receive d Time (Source) Location / / Volume Laterality Blood specimen Venous Draw / 10/24/2015 3:16 PM 2015 3:46 (specimen) Unknown EST PM EST Charlene Long MD HEMATOLOGY ORDERABLES Performing Organization Address City/[facility]/[place] [address] CERNER MILLENNIUM (ABNORMAL) Differential, Automated (10/24/2015 3:16 PM EST) Patholo gist Method Time Signature Neutrophils % 86.7 [...] Organization Address City/State/[place] [address] CERNER MILLENNIUM (ABNORMAL) Hemogram (10/24/2015 3:16 PM EST) P athologist Signature WBC 6.4 4.0 - 10.0 [...] Organization Address City/State/ZIP Code Phon e Number [place] [id number] CERNER MILLENNIUM High Sensitivity CRP (10/24/2015 3:16 PM EST) P athologist Signature CRP High Sens 1.1 mg/L CERNER MILLENNIUM Comment: Interpretations: 1) For [...] Long MD CHEMISTRY ORDERABLES Performing Organization Address City/[facility]/ZIP Code Phon e Number [address] [facility] MILLDIGN[facility] MED[facility] CENTERIUM (ABNORMAL) Sedimentation rate (10/24/2015 3:16 PM EST) P athologist Signature Sed Rate 42 (H) 0 - 20 CERNER mm/hr MILLENNIUM Specimen Anatomical Collection Method Collection Time Receive d Time (Source) Location / / Volume Laterality Blood specimen 10/24/2015 3:16 PM 016 3:45 (specimen) EST PM EST Resulting Agency Comment Spec In Lab Charlene Long MD HEMATOLOGY ORDERABLES Performing Organization Address City/[facility]/ZIP Code Phon e Number [address] [facility] Glucose, random (10/24/2015 3:16 PM EST) P [...] Long MD CHEMISTRY ORDERABLES Performing Organization Address City/[facility]/ZIP Code Phon e Number [address] CERNER MILLENNIUM (ABNORMAL) Creatinine (10/24/2015 3:16 PM EST) P athologist Signature Creatinine 1.00 0.70 - 1.20 CERNER mg/dL [facility] Comment: Please note that the pediatric reference intervals supplied above were not validated at [facility]. Results from pediatri c patients should be [...] the following links into your internet browser. [email or web address] Specimen Anatomical Collection Method Collection Time Receive d Time (Source) Location / / Volume Laterality Blood specimen 10/24/2015 3:16 PM 016 3:45 (specimen) EST PM EST Resulting Agency Comment Spec In Lab Charlene Long MD CHEMISTRY ORDERABLES Performing Organization Address City/State/[place] [address] CERNER MILLENNIUM (ABNORMAL) Electrolytes panel (10/24/2015 3:16 PM EST) P athologist Signature Sodium 132 (L) 135 - [...] Organization Address City/State/ZIP Code Phon e Number [address] CERNER FARRAHENNIUM (ABNORMAL) BUN (10/24/2015 3:16 PM EST) P athologist Signature BUN 20 (H) 8 - 18 CERNER mg/dL MILLENNIUM Specimen Anatomical Collection Method Collection Time Receive d Time (Source) Location / / Volume Laterality Blood specimen 10/24/2015 3:16 PM 016 3:45 (specimen) EST PM EST Resulting Agency Comment Spec In Lab Charlene Long MD CHEMISTRY ORDERABLES Performing Organization Address City/State/ZIP Code Phon e Number [address] SANDY YANENNIUM documented in this encounter Visit Diagnoses Not on filedocumented in this encounter Admitting Diagnoses Diagnosis Giant cell arteritis documented in this encounter Administered Medications Inactive Administered Medications - up to 3 most recent administrations Medication Order MAR Action Action Date Dose Rate Site lidocaine (PF) Given 10/25/2015 4:49 PM 22.5 mg 19 - Surgical Site (XYLOCAINE) 10 mg/mL (1 EST %) injection ONCE PRN, Starting on Sat10/25/15 at 1649, Until Sat10/25/15 at 1815, Intra-Operative (Intra-Procedure), Routine documented in this encounter Active and Recently Administered Medications Times are shown in EST. Scheduled Medication Order 10/25/2015 10/26/2015 10/27/2015 amLODIPine (NORVASC) tablet 5 mg (CANCELED) 0924 (Give n - Provider: Sandra Gonzalez RN)1537 (MAR Hold - Provider: Admin Adt - Reason: Transfer to a Procedural area)1859 (MAR Unhold - Provider: Admin Adt) 0901 (Given [...] area)1859 (DEC Unhold - Provider: Admin Adt) 0900 [...] area)185 (DEC Unhold - Provider: Admin Adt) 1217 [...] (Give n - Provider: Sandra Gonzalez RN)1537 ([facility] Hold - Provider: Admin Adt - Reason: Transfer to a Procedural area)185 ([facility] Unhold - Provider: Admin Adt)2013 (Given - Provider: Patricia Lynch RN) 0900 (Given - Provider: Sandra bridges RN)2100 (Given - Provider: Patricia Lynch RN) 0857 (Given - Provider: Chrissy Stephenson) 5 mL, Intravenous, 2 TIMES DAILY, First dose on Sat10/24/15 at 2100, Until Discontinued, Routine sulfamethoxazole-trimethoprim (BACTRIM D S) 800-160 mg per tablet 1 tablet (CANCELED) 1537 ([facility] Hold - Provider: Admin Adt - R dewey: Transfer to a Procedural area)185 ([facility] Unhold - Provider: Admin Adt) 0900 (Given - Provider: Sandra Gonzalez RN) 1 tablet, Oral, THREE TIMES WEEKLY (Once per day on Sat), First dose on Sat10/26/15 at 0900, Until Discontinued, Routine PRN Medication Order 10/25/2015 10/26/2015 10/27/2015 acetaminophen (TYLENOL) tablet 650 mg (CANCELED) 0931 (Given - Provider: Sandra Gonzalez RN)1537 ([facility] Hold - Provider: Admin Adt - Reason: Transfer to a Procedural area)185 ([facility] Unhold - Provider: Admin Adt)2336 (Given - [...] PRN, Start ing Sat10/26/15 at 2158, Until Radha 10/27/15 at 1212, Heartburn, Routine lidocaine (PF) (XYLOCAINE) 10 mg/mL (1 %) injection (C ANCELED) 1649 (Given - Provider: Sukhdev Bhatti MD - Comment: Injected to surgical site.) ONCE PRN, Starting 10/25/15 at 1649, Until Tu10/25/15 at 1815, Intra- Operative (Intra-Procedure), Routine documented in this encounter Care Teams Dobie Man Relationship Specialty Start Date End Date Zoey Lucas MD PCP - General 09/05/[address] [place] [address] documented as of this encounter
--- OUTSIDE RECORDS SUMMARY | 2022-07-27 00:19 | XMS_ITS | Encounter Summary ---
:1940 Author Organization [facility] [address] Care Team Providers Name Role Phone Zoey Lucas MD Primary Care Provider Reason for Visit Auth/Cert Specialty Diagnoses / Procedures Referred By Contact Refer red To Contact Diagnoses Giant cell arteritis headaches, r/o temporal arteritis Procedures LIGATION OR BIOPSY, TEMPORAL ARTERY Referral ID Status Reason Start Date Expiration Date Visits Requ ested Visits Authorized [id number] 1 1 Encounter Details Date Type Department Care Team Description 10/25/2015 Anesthesia Event Main Operating Room aD Hooper MD [facility] [place] [address] [facility] Javier Robison MD [facility] [place] [address] [facility] [place] [address] Anesthesia Record Procedure Summary Procedure Name Responsible Anesthesia Start Anesthesia Stop Time Anesthesiologist Time LIGATION OR BIOPSY, Da Banegas MD 10/25/15 1610 6 1728 TEMPORAL ARTERY (WRVU 3.05) (Bilateral ) Events Date Time Event Comment 10/25/2015 1555 1610 AN Verify 1610 Start 1610 An Start Data 1613 Anesthesia Ready 1724 an stop data 1728 Recovery or ICU Handoff Patient care was transferred to the destination unit staff after review of the patient's medica l history, current anesthetic/surgi qian status and plan, according to the Provider Handoff Checklist. 1728 Stop Name Total Midazolam 2 mg Propofol 20 mg Propofol INF 110.93 mg ceFAZolin 1 g Lactated Ringers 600 mL Agents Name O2 Sevoflurane (et) Blood No blood administrations on file. Lines, Drains, and Airways Type Details Placement Removal PIV 10/24/15; 1452; metacarpal 10/24/15 1452 by Tito e, 10/26/15 0520 by vein right (top of hand); DAVE Higgins rt, Marni Houser RN itsc-soe-lcrevg catheter system; 22 gauge; IV catheter leaking at the insertion site.; lumen/catheter not patent, removed per policy/procedure, site care per policy/procedure, catheter intact; 10/26/15; 0520 Incision 10/25/15; temporal region; 10/25/15 0000 by Schl ask, 06/11/22 1715 by 06/11/22 (LDA cleanup DAVE Weir Di erdre L utility RA#[id number]); 1715 (LDA cleanup utility RA#[id number]) Incision 10/25/15; temporal region; 10/25/15 0000 by Schl ask, 06/11/22 1715 by 06/11/22 (LDA cleanup DAVE Weir Di erdre L utility RA#[id number]); 1715 (LDA cleanup utility RA#[id number]) documented in this encounter Social History Tobacco [...] encounter OR Notes Anesthesia Postprocedure Evaluation - Da Banegas MD - 10/25/2015 5:35 PM EST [facility] Department of Anesthesiology Post-procedure Note Patient: Zeny Joe Procedure Summary Date Anesthesia Start Anesthesia Stop Room / Location 10/25/15 1610 1728 [facility] OR [facility] MAIN OR Procedure Diagnosis Surgeon Responsible Provider LIGATION OR BIOPSY, TEMPORAL ARTERY (Bilateral ) No diagnosis on file. Sukhdev Bhatti MD Burrage, Peter S, MD (headaches, r/o temporal arteritis) Last (1hr) Vitals: BP 153/73 mmHg (10/25/15 1730) Temp 37.2 ??C (99 ??F) (10/25/15 1728) Pulse 73 (10/25/15 1730) Resp 24 (10/25/15 1730) SpO2 99 % (10/25/15 1730) Patient Location: PACU/[facility] Level of Consciousness: Awake and Alert Pain Management: Satisfactory Analgesia PONV: None Cardiovascular Status: At Baseline Respiratory Status: At Baseline Postoperative Fluid Status: Intravascular EUvolemia Possible Anesthetic Complications: NONE apparent at time of evaluation Final Primary Anesthesia Type: MAC (The anesthetic type performed was the same as planned.) Comments: Patient comfortable, denies nausea, appreciative of care. Anesthesia Preprocedure Evaluation - Da Banegas MD - 10/25/2015 1:00 PM EST Pre-Anesthesia Evaluation for: Zeny Joe a 75 y.o. female. Procedure(s): LIGATION OR BIOPSY, TEMPORAL ARTERY Patient Active Problem List Diagnosis ??? Giant cell arteritis ??? Vision loss of left eye Past Medical History Diagnosis Date ??? Allergic state ??? Arthritis ??? Asthma ??? Anxiety ??? Hypertension ??? Chronic kidney disease single kidney ??? Skin disease ??? Giant cell arteritis 10/24/2015 Past Surgical History Procedure Laterality Date ??? Lung surgery 1983 Left upper lobe- precancer ??? 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 Smoking status: Former Smoker Quit date: 10/20/1983 ??? Smokeless tobacco: Never Used ??? Alcohol Use: 0.6 oz/week 1 Glasses of wine per week Comment: occasionaly History Drug Use No Allergies Allergen Reactions ??? Beta-Blockers (Beta-Adrenergic Blocking Agts) ??? Doxazosin Mesylate ??? Lisinopril ??? Nickel Medications: MAR and/or home medications have been reviewed. Physical Exam: Filed Vitals: 10/25/15 0923 BP: 148/82 Pulse: 75 Temp: Resp: Body mass index is 28.31 kg/(m^2). Height: 160 cm (5' 3) Weight - Scale: 72.485 kg (159 lb 12.8 oz) Airway Assessment: Mallampati: II TM distance: >3 FB Neck ROM: full Cardiovascular Assessment: Pulmonary Assessment: Dental Assessment: (+) upper dentures Misc Assessment: IV access: Peripheral line Anesthesia Plan: ASA 3 MAC, 75 y.o. female with h/o HTN, s/p nephrectomy who has worsening visual changes on 3 days of prednisone 60mg with suspicion for GCA presenting to OR for temporal artery biopsy. Pt is s/p right nephrectomy and left partial pneumonectomy ('84). Good functional status. Exercise tolerance: >4 mets Labs: CBC Lab Results Component Value Date WBC 9.0 10/25/2015 HEMOGLOBIN 12.3 10/25/2015 HEMATOCRIT 36.2 10/25/2015 PLATELETS 426* 10/25/2015 Electrolytes Lab Results Component Value Date SODIUM 135 10/25/2015 POTASSIUM 3.7 10/25/2015 CHLORIDE 94* 10/25/2015 CO2 24 10/25/2015 Lab Results Component Value Date CREATININE 1.03 10/25/2015 Coags No results found for: INR, PT, PTT Type and Screen: No results found for: ABORH Allergies: -- Beta-Blockers (Beta-Adrenergic Blocking Agts) -- Doxazosin Mesylate -- Lisinopril -- Nickel NPO Status: Appropriate Anesthetic hx: No prior complications with anesthesia Anesthetic Plan: MAC with GA backup Standard ASA monitoring Adequate IV access Informed Consent: Anesthetic plan and risks discussed with patient. Use of blood products discussed with patient whom. PAT Staff Note documented in this encounter Plan of Treatment Not on filedocumented as of this encounter Visit Diagnoses Not on filedocumented in this encounter Administered Medications Inactive Administered Medications - up to 3 most recent administrations Medication Order MAR Action Action Date Dose Rate Site ceFAZolin (ANCEF) 1g in dextrose 5% Given 10/25/2015 4:35 PM EST 1 g 50mL PRN, Starting on Sat10/25/15 at 1635, Until Sat10/25/15 at 1728, Administer over 30 Minutes, Anesthesia Intra-op lactated ringers infusion New Bag 10/25/2015 4:10 PM EST CONTINUOUS PRN, Starting on Sat10/25/15 at 1610, Until Sat10/25/15 at 1728, Anesthesia Intra-op midazolam (PF) (VERSED) 1 mg/mL multi-dose Given 10/25/2015 4:21 PM EST 1 mg injection PRN, Starting on Sat10/25/15 at 1615, Until Sat10/25/15 at 1728, Sleep, Anesthesia Intra-op, Routine Given 10/25/2015 4:15 PM EST 1 mg propofol (DIPRIVAN) 10 mg/mL bolus injection Given 6 4:46 PM EST 20 mg (Anesthesia) PRN, Starting on Sat10/25/15 at 1646, Until Sat10/25/15 at 1728, Anesthesia Intra-op propofol (DIPRIVAN) Rate/Dose Change 10/25/2015 5:14 15 mcg/kg/min 6. 5 mL/hr infusion PM EST CONTINUOUS PRN, Starting on Sat10/25/15 at 1618, Until Sat10/25/15 at 1728, Anesthesia Intra-op, Routine Rate/Dose Change 10/25/2015 4:52 PM EST 35 mcg/kg/min 15.2 mL/hr Rate/Dose Change 10/25/2015 4:30 PM EST 25 mcg/kg/min 10.9 mL/hr documented in this encounter Care Teams Cocoa Bean Roaster Helper Relationship Specialty Start Date End Date Zoey Lucas MD PCP - General 09/05/[address] [place] [address] documented as of this encounter
--- OUTSIDE RECORDS SUMMARY | 2022-07-27 00:19 | XMS_ITS | Encounter Summary ---
:1940 Author Organization [facility] Address [facility] [place] [address] Care Team Providers Name Role Phone Zoey Lucas MD Primary Care Provider Reason for Visit Reason Onset Date Comments Other 11/29/2015 update Encounter Details Date Type Department Care Team Description 11/29/2015 Telephone Rheumatology at [facility] Karissa Butler, Other (update) [facility] [place] [address] Social History Tobacco Use Types Packs/Day [...] this encounter Miscellaneous Notes Telephone Encounter - Karissa Butler RN - 11/30/2015 2:45 PM EST Lets decrease to 40mg for 1 week, then 30mg for 1 week and then we can recheck her labs before we go down again. ? With care, ? JESSIE KLINE MD ? Called Zeny and relayed Dr. Kline's instructions above. She verbalized understanding. She also asked about the deep cough she is having. Asked if she is producing sputum, she said she is, but it is clear. Recommended she continue to monitor, but because it is clear, we are not concerned that it could be an infection. Told her if something changes she can give us a call. Zeny verbalized understanding. Telephone Encounter - Karissa Butler RN - 11/29/2015 4:13 PM EST Zeny called and left message that she had her labs done yesterday. She would like to know if her prednisone can be decreased. She says she is on 50 mg now. She reports she has had a cold for one week with a Deep, loose cough. She says she does experience a mild ache in her jaw when she eats. She rates that as a 1 out of 10 pain level. documented in this encounter Plan of Treatment Not on filedocumented as of this encounter Visit Diagnoses Not on filedocumented in this encounter Care Teams Center Manager Relationship Specialty Start Date End Date Zoey Lucas MD PCP - General 09/05/[address] [place] [address] documented as of this encounter
--- OUTSIDE RECORDS SUMMARY | 2022-07-27 00:19 | XMS_ITS | Encounter Summary ---
:1940 Author Organization [facility] Address [facility] [place] [address] Care Team Providers Name Role Phone Zoey Lucas MD Primary Care Provider Reason for Visit Reason Onset Date Comments Eye Problem 10/24/2015 Decreased [facility] OD now. Encounter Details Date Type Department Care Team Description 10/24/2015 Telephone Ophthalmology at [facility] Anabela Rodríguez, Eye Problem (Decreased [facility] Lizet Tillman MD VA OD now. ) [place] [address] [facility] [phone] OPHTHALMOLOGY DE PT [place], [place] [address] Social History Tobacco Use Types [...] this encounter Miscellaneous Notes Telephone Encounter - Janes Cabrera COMT - 10/24/2015 10:01 AM EST After speaking with Dr Kline, pt to come to ED for admission and treatment. Pt agrees with this course of treatment. Telephone Encounter - Janes Cabrera COMT - 10/24/2015 9:35 AM EST Spoke with Dr Rodríguez who asked me to page Dr Kline about admission and Solu-Medrol for this patient. Telephone Encounter - Janes Cabrera COMT - 10/24/2015 8:53 AM EST Decreased [facility] OD now. Last SK note: Zeny Joe is a 75 y.o. female with the following medical problems; Past Medical History Past Medical History Diagnosis Date ??? Allergic state ??? Arthritis ??? Asthma ??? Anxiety ??? Hypertension ??? Chronic kidney disease single kidney ??? Skin disease Assessment and Plan: Vision loss of left eye Noted vision loss in the left eye a week ago, after occluding the right eye. Unclear exact onset of vision loss. No ocular pain. She endorses intermittent frontal headaches, and bilateral jaw pain after prolonged chewing. No tongue claudication/neck or shoulder pain/ no appetite change or weight loss.No preceding TVOs or diplopia. On examination today, Zeny Joe normal vision in the right eye. Her left eye demonstrated reduced visual function, absent color vision, with a dense relative afferent pupillary defect that would suggest an underlying optic nerve dysfunction. Static visual ochoa were full in the right eye, and diffusely depressed in the left. The optic nerves are healthy and pink bilaterally without any evidenceof swelling. Given her symptoms, concern for GCA. 10- 15% of cases may present as a posterior ischemic optic neuropathy, with absent disc swelling. ESR, CBC + plts, CRP today. MRI brain/orbits to rule out compressive lesion. Update--> ESR elevated at 84. Her age adjusted ESR should be 42. High suspicion for GCA. Rheumatology correspondence school instructor aware- Dr. Kline, has kindly agreed to see her this afternoon. Immediate pred PO - prescribed to [facility] pharmacy. Patient to pick this up. Findings discussed with Zeny Joe today and she has expressed understanding. She will call me if she has any further concerns. For Follow up Visit 3 weeks documented in this encounter Plan of Treatment Not on filedocumented as of this encounter Visit Diagnoses Not on filedocumented in this encounter Care Teams Policy Specialist Relationship Specialty Start Date End Date Zoey Lucas MD PCP - General 09/05/[address] [place] [address] documented as of this encounter
--- OUTSIDE RECORDS SUMMARY | 2022-07-27 00:19 | XMS_ITS | Encounter Summary ---
:1940 Author Organization [facility] [place] [address] Care Team Providers Name Role Phone Zoey Lucas MD Primary Care Provider Reason for Visit Reason Comments Temporal Arteritis GCA WITH VA LOSS OS ASSOC[facility] ED Encounter Details Date Type Department Care Team Description 12/15/2015 Office Visit Ophthalmology at [facility] Anabela Rodríguez, Vision loss, left eye; [facility] MD Primo Visual field defects; [facility] [place] [address] CENTER [phone] OPHTHALMOLOGY DEPT [place], [place] [address] Social History Tobacco Use Types [...] encounter Progress Notes Primo Rodríguez MD - 12/15/2015 2:25 PM EST Zeny Joe is a 75 [...] the right, and pale on the left. PION from GCA, left eye, mild right [...] HVF, sooner prn documented in this encounter Miscellaneous Notes Assessment & Plan Note - Primo Rodríguez MD - 12/15/2015 2:25 PM EST Associated Problem(s): Giant cell arteritis [...] the right, and pale on the left. PION from GCA, left eye, mild right [...] Comme nts OCT OPTIC NERVE - Routine 12/15/2015 2:21 PM Visual field defe cts Results for this OU - BOTH EYES EST procedure are in the results section. AUTOMATED VISUAL Routine 12/15/2015 2:21 PM Vision loss, left Results for this FIELD - EXTENDED - EST eye procedure are in OU- BOTH EYES the results section. documented in this encounter Results OCT OPTIC THHOD-LV-CSDV EYES (12/15/2015 2:21 PM EST) Anatomical Region Laterality Modality Other Specimen (Source) Anatomical Location Collection Method / Collectio n Time Received Time / Laterality Volume Narrative 12/15/2015 2:22 PM EST Trace thinning OD, thinning OS Primo Rodríguez MD OPHTHALMOLOGY SERVICES ORD ERABLES AUTOMATED VISUAL FIELD - EXTENDED - OU- BOTH EYES (12/15/2015 2:21 PM EST) Anatomical Region Laterality Modality Other Specimen (Source) Anatomical Location Collection Method / Collectio n Time Received Time / Laterality Volume Narrative 12/15/2015 2:21 PM EST Constriction superiorly>inferiorly OS, m ild peripheral defects OD Primo Rodríguez MD OPHTHALMOLOGY SERVICES ORD ERABLES documented in this encounter Visit Diagnoses Diagnosis Vision loss, left eye Unqualified visual loss, one eye Visual field defects Visual field defect, unspecified Giant cell arteritis documented in this encounter Care Teams Librarian Assistant Relationship Specialty Start Date End Date Zoey Lucas MD PCP - General 09/05/[address] [place] [address] documented as of this encounter
--- OUTSIDE RECORDS SUMMARY | 2022-07-27 00:19 | XMS_ITS | Encounter Summary ---
:1940 Author Organization [facility] Address [address] [place] [address] Care Team Providers Name Role Phone Zoey Lucas MD Primary Care Provider Encounter Details Date Type Department Care Team Description 11/30/2015 Orders Only Rheumatology at [facility] Cliff Kline MD GCA (giant cell [facility] art eritis) ([address] Drive DR Dx) [place] [address] GENERAL INTERNAL [phone] MEDICINE [place], [place] [address] Social History Tobacco Use Types [...] on filedocumented as of this encounter Results Sedimentation rate (12/15/2015 9:14 AM EST) P athologist Signature Sed Rate 16 0 - 20 [facility] mm/hr [facility] Specimen Anatomical Collection Method Collection Time Receive d Time (Source) Location / / Volume Laterality Blood specimen 12/15/2015 9:14 AM 016 9:25 (specimen) EST AM EST Resulting Agency Comment Spec In Lab Christian Kelly MD HEMATOLOGY ORDERABLES Performing Organization Address City/State/[place] [address] High Sensitivity CRP (12/15/2015 9:14 AM EST) athologist Signature CRP High Sens 0.8 mg/L [facility] Comment: Interpretations: 1) For accurate [...] the test package insert) References: 1. Stevie VALETNINE et. al. ??AHA/CDC Scientif ic Statement: Markers [...] Organization Address City/State/ZIP Code Phon e Number [place] [id number] documented in this encounter Visit Diagnoses Diagnosis GCA (giant cell arteritis) - Primary Giant cell arteritis documented in this encounter Care Teams Rehab Aide Relationship Specialty Start Date End Date Zoey Lucas MD PCP - General 09/05/[address] [place] [address] documented as of this encounter
--- OUTSIDE RECORDS SUMMARY | 2022-07-27 00:19 | XMS_ITS | Encounter Summary ---
:1940 Author Organization [facility] Address [address] [place] [address] Care Team Providers Name Role Phone Zoey Lucas MD Primary Care Provider Encounter Details Date Type Department Care Team Description 10/21/2015 Orders Only Vascular Surgery at [facility] Pippa Herrera, Vision loss [facility] [place] [address] Social History Tobacco Use Types Packs/Day Years Used Date Former Smoker Quit: 10/20/18 84 Alcohol Use Standard Drinks/Week Comments Yes 0 (1 standard drink = 0.6 oz pure alcoho l) Sex Assigned at Date Recorded Female 02/10/2021 8:25 AM EDT documented as of this encounter Plan of Treatment Not on filedocumented as of this encounter Visit Diagnoses Diagnosis Vision loss Unspecified visual loss documented in this encounter Care Teams Survey Research Manager Relationship Specialty Start Date End Date Zoey Lucas MD PCP - General 09/05/[address] [place] [address] documented as of this encounter
--- OUTSIDE RECORDS SUMMARY | 2022-07-27 00:19 | XMS_ITS | Encounter Summary ---
:1940 Author Organization [facility] [place] [address] Care Team Providers Name Role Phone Zoey Lucas MD Primary Care Provider Reason for Referral Consultation (Urgent) - Closed Specialty Diagnoses / Procedures Referred By Contact Refer red To Contact Vascular Surgery Diagnoses GCA (giant cell arteritis) Cliff Klnie MD [facility] Vascular Surg [address] [place] [address] [place] [address] [place] [address] Referral ID Status Reason Start Date Expiration Date Visits V isits Requested Authorized [id number] Closed Consult, 10/20/2015 10/19/2016 1 1 Test & Treat Encounter Details Date Type Department Care Team Description 10/20/2015 Office Visit [place] [facility] [place] Kline MD GCA (giant cell Replaced by [facility] art eritis) [place] [address] GENERAL INTERNAL [phone] [place], [place] [address] Social History Tobacco Use Types Packs/Day Years Used Date Former Smoker Quit: 10/20/18 84 Alcohol Use Standard Drinks/Week Comments Yes 0 (1 standard drink = 0.6 oz pure alcoho l) Sex Assigned at Date Recorded Female 02/10/2021 8:25 AM EDT documented as of this encounter Last Filed Vital Signs Vital Sign Reading Time Taken Comments Blood Pressure 128/61 10/20/2015 2:13 PM EST Pulse 90 10/20/2015 2:13 PM EST Temperature 36.7 ??C (98 ??F) 10/20/2015 2:13 PM EST Respiratory Rate - - Oxygen Saturation 98% 10/20/2015 2:13 PM EST Inhaled Oxygen Concentration - - Weight 72.1 kg (159 lb) 10/20/2015 2:13 PM EST Height 160 cm (5' 3) 10/20/2015 2:13 PM EST Body Mass Index 28.17 10/20/2015 2:13 PM EST documented in this encounter Patient Instructions Patient InstructionsCliff Kline MD - 10/20/2015 3:17 PM EST Please taper prednisone by 1/2 tablet or by 10 mg every other week Please get labs every other week starting next week, until I see you in one month Return in one month Bactrim 3 times weekly Bone scan and temporal artery biopsy will be scheduled for you documented in this encounter Progress Notes Fahad Field MD - 10/20/2015 3:58 PM EST I have seen the patient and reviewed the resident's above history and I agree with the details as written. The assessment and plan were formulated in discussion with me and I agree with them as documented. Pertinent History: Central scotoma, headache jaw claudication Pertinent Exam: Neg TA tenderness but elevated ESR Major issues addressed: managment Plan: 60mg prednisone, bactrim prophylaxis, 81 mgASA, TA bx Cliff Kline MD - 10/20/2015 2:22 PM EST Rheumatology Outpatient Consultation Note Reason for Consult: The patient is seen at the request of Primo Rodríguez MD [facility] DR OPHTHALMOLOGY DEPT [place], [place] [address] For evaluation and treatment of GCA HPI: Zeny Joe is a 75 y.o. female with h/o HTN, depression who is being seen at the request ofDr Rodríguez for GCA. Her symptoms started in with a head cold in middle of [...] eyes with discharge. Jaw ache and claudication. Currently has low grade headache and jaw pain worse with chewing. September seen by ophtho for red fidel on skin, eye test was fine at that time. Seen by neuroophthalmology who saw findings concerning for GCA, and ESR of 80's. She denies proximal muscle pain and weakness. 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 female who presents today with symptoms concerning for GCA. She describes jaw claudication and headache, but does not have temporal artery tenderness. Her inflammatory markers are elevated. While she needs a temporal artery biopsy for confirmation, her treatment should not be delayed as it has already threatened her vision. She has started on prednisone 60mg po, and if hervision worsens at all she has been instructed to be admitted for IV solumedrol. She will concurrently be started on bactrim for PJP prophylaxis. She has a history of osteopenia, we will not start her empirically on bisphosphonates, but will repeat a DEXA scan to make sure she does not need them. #GCA -prednisone 60mg taper -temporal biopsy -MRI per ophtho -check inflammatory markers every 2 weeks until next visit #CVA prophylaxis -ASA 81 daily #PJP prophylaxis - bactrim 3 times weekly Follow-up 1 month CC: ZOEY LUCAS MD Case seen and discussed with Dr Emir KLINE MD 10/20/2015 documented in this encounter Plan of Treatment Scheduled Referrals Name Type Priority Associated Diagnoses Order S chedule Referral to Outpatient Referral Routine GCA (giant cell Order ed: Vascular Surgery arteritis) 10/20/2015 documented as of this encounter Results High Sensitivity CRP (08/01/2016 12:36 PM EDT) P athologist Signature CRP High Sens 0.8 mg/L [facility] Comment: Interpretations: 1) For accurate [...] Organization Address City/State/[place] [address] High Sensitivity CRP (03/27/2016 11:14 AM EDT) P athologist Signature CRP High Sens 2.5 mg/L [facility] Comment: Interpretations: 1) For accurate [...] Organization Address City/State/[place] [address] High Sensitivity CRP (01/25/2016 8:41 AM EDT) P athologist Signature CRP High Sens 0.6 mg/L [facility] Comment: Interpretations: 1) For accurate [...] Field MD CHEMISTRY ORDERABLES Performing Organization Address City/[facility] Phon e Number [place] [phone] [facility] [address] High Sensitivity CRP (01/05/2016 12:06 PM EDT) athologist Signature CRP High Sens 0.9 mg/L [facility] Comment: Interpretations: 1) For accurate [...] Field MD CHEMISTRY ORDERABLES Performing Organization Address [facility] [address] [facility] [address] [address] High Sensitivity CRP (11/28/2015 11:56 AM EST) athologist Signature CRP High Sens <0.2 mg/L [facility] Comment: result rechecked-NM Interpretations: 1) For accurate [...] Organization Address City/State/ZIP Code Phon e Number [place] [phone] [place] High Sensitivity CRP (11/10/2015 4:42 PM EST) P athologist Signature CRP High Sens 0.4 mg/L [...] Organization Address City/State/ZIP Code Phon e Number [address] [facility] documented in this encounter Visit Diagnoses Diagnosis GCA (giant cell arteritis) Giant cell arteritis documented in this encounter Care Teams Occupational Therapy Manager Relationship Specialty Start Date End Date Zoey Lucas MD PCP - General 09/05/[address] [place] [address] documented as of this encounter
--- OUTSIDE RECORDS SUMMARY | 2022-07-27 00:19 | XMS_ITS | Encounter Summary ---
:1940 Author Organization [facility] [place] [address] Care Team Providers Name Role Phone Zoey Lucas MD Primary Care Provider Reason for Referral Diagnostic Test (Routine) - Specialty Diagnoses / Procedures Referred By Contact Refer red To Contact Radiology Diagnoses Vision loss of left eye [facility] Rad Mri Procedures MRI Orbit With/[place] [address] [place] [address] Referral ID Status Reason Start Date Expiration Visits Visits Date Requested Authorized [id number] Specialty 10/20/2015 10/19/2016 1 1 Service Requested Diagnostic Test (Routine) - Closed Specialty Diagnoses / Procedures Referred By Contact Refer red To Contact Radiology Diagnoses Vision loss of left eye [facility] Rad Mri Procedures MRI Brain With/WO Contrast (GENERIC) [place] [address] [place] [address] Referral ID Status Reason Start Date Expiration Date Visits V isits Requested Authorized [id number] Closed Specialty 10/20/2015 10/19/2016 1 1 Service Requested Reason for Visit Reason Comments Loss of Vision OS Encounter Details Date Type Department Care Team Description 10/20/2015 Office Visit Ophthalmology at [facility] Anabela Rodríguez, Vision loss of left [facility] [place] [address] CENTER [phone] OPHTHALMOLOGY DEPT [place], [place] [address] Social History Tobacco Use Types Packs/Day Years Used Date Former Smoker Quit: 10/20/18 84 Alcohol Use Standard Drinks/Week Comments Yes 0 (1 standard drink = 0.6 oz pure alcoho l) Sex Assigned at Date Recorded Female 02/10/2021 8:25 AM EDT documented as of this encounter Progress Notes Primo Rodríguez MD - 10/20/2015 12:48 PM EST Zeny Joe is a 75 [...] be 43. High suspicion for GCA. Rheumatology television audio engineer aware- Dr. Kline, has kindly agreed to see her this afternoon. Immediate pred PO - prescribed to [facility] pharmacy. Patient to pick this up. Findings discussed with Zeny Joe today and she has expressed understanding. She will call me if she has any further concerns. For Follow up Visit 3 weeks documented in this encounter Miscellaneous Notes Assessment & Plan Note - Primo Rodríguez MD - 10/20/2015 12:48 PM EST Associated Problem(s): Vision loss of left eye Noted vision [...] be 43. High suspicion for GCA. Rheumatology television audio engineer aware- Dr. Kline, has kindly agreed to see her this afternoon. Immediate pred PO - prescribed to [facility] pharmacy. Patient to pick this up. documented in this encounter Plan of Treatment Not on filedocumented as of this encounter Procedures Procedure Name Priority Date/Time Associated Comments Diagnosis OCT OPTIC NERVE - OU - Routine 10/20/2015 12:49 Vision loss of Results for this BOTH EYES PM EST left eye procedure are i n the results section. AUTOMATED VISUAL FIELD - Routine 10/20/2015 12:49 Vision loss of Results for this EXTENDED - OU- BOTH EYES PM EST left eye pro cedure are in the results section. CYTOPLASMIC NEUTROPHILIC Routine 10/20/2015 11:18 Vision loss of Results for this AB AM EST left eye procedure are i n the results section. PROTEINASE-3 ANTIBODY Routine 10/20/2015 11:18 Vision loss of Results for this AM EST left eye procedure are i n the results section. MYELOPEROXIDASE AB Routine 10/20/2015 11:18 Vision loss of Res ults for this AM EST left eye procedure are i n the results section. HEMOGRAM Routine 10/20/2015 11:18 Vision loss of Results f or this AM EST left eye procedure are i n the results section. DIFFERENTIAL, AUTOMATED Routine 10/20/2015 11:18 Vision loss o f Results for this AM EST left eye procedure are i n the results section. CREATININE Routine 10/20/2015 11:18 Vision loss of Results f or this AM EST left eye procedure are i n the results section. SEDIMENTATION RATE Routine 10/20/2015 11:18 Vision loss of Res ults for this AM EST left eye procedure are i n the results section. PLATELET COUNT Routine 10/20/2015 11:18 Vision loss of Results for this AM EST left eye procedure are i n the results section. CBC (WITH DIFF) Routine 10/20/2015 11:18 Vision loss of AM EST left eye CRP, CARDIAC RISK (HS Routine 10/20/2015 11:18 Vision loss of Results for this CRP) AM EST left eye procedure are i n the results section. VICENTE Routine 10/20/2015 11:18 Vision loss of Results f or this AM EST left eye procedure are i n the results [...] of the extraocular muscles. Primo Rodríguez MD [facility] MRI ORDERABLES MRI Brain With/WO Contrast (GENERIC) [...] muscles. Primo Rodríguez MD IMG MRI ORDERABLES OCT OPTIC [id number] EYES (10/20/2015 12:49 PM EST) Anatomical Region Laterality Modality Other Specimen (Source) Anatomical Location Collection Method / Collectio n Time Received Time / Laterality Volume Narrative 10/20/2015 12:49 PM EST Right Eye Quality was good. Findings include jorge l observations. Temporal thickness was normal. Superior thickness was jorge l. Nasal thickness was normal. Inferior thickness was normal. Left Eye Quality was good. Findings include jorge l observations. Temporal thickness was normal. Superior thickness was jorge l. Nasal thickness was normal. Inferior thickness was normal. Notes Normal RNFL OU Primo Rodríguez MD OPHTHALMOLOGY SERVICES ORD ERABLES AUTOMATED VISUAL FIELD - EXTENDED - OU- BOTH EYES (10/20/2015 12:49 PM EST) Anatomical Region Laterality Modality Other Specimen (Source) Anatomical Location Collection Method / Collectio n Time Received Time / Laterality Volume Narrative 10/20/2015 12:49 PM EST Normal OD, dense diffuse loss OS Primo Rodríguez MD OPHTHALMOLOGY SERVICES ORD ERABLES Differential, Automated (10/20/2015 11:18 AM EST) P athologist Signature Neutrophils % 67.9 % CERNER MILLENNIUM Neutr Abs (ANC) 4.51 1.50 - CERNER 6.30 MILLENNIUM x10(3)/mcL Lymphocytes % 22.8 % CERNER MILLENNIUM Lymphocytes Abs 1.5 1.0 - 3.6 CERNER x10(3)/mcL MILLENNIUM Monocytes % 8.0 % CERNER MILLENNIUM Monocyte Abs 0.5 0.2 - 1.0 CERNER x10(3)/mcL MILLENNIUM Eosinophils % 0.8 % CERNER MILLENNIUM Eosinophils Abs 0.0 0.0 - 0.5 CERNER x10(3)/mcL MILLENNIUM Basophils % 0.5 % CERNER MILLENNIUM Basophils Abs 0.0 0.0 - 0.2 CERNER x10(3)/mcL MILLENNIUM Immature Gran % 0.00 % CERNER MILLENNIUM Comment: Immature granulocytes(IG's)percentage an d absolute count will include metamyelocytes, myelocytes, and promyelo cytes. Blood smears from CBCs yielding IG's will be scanned manually for concor dance. If this scan disagrees with the automated IG or if promyelocytes are not ed, a manual differential will be performed. Lida Gran Abs 0.00 0.00 - 0.05 x10(3)/mcL CER NER MILLENNIUM Specimen Anatomical Collection Method Collection Time Receive d Time (Source) Location / / Volume Laterality Blood specimen 10/20/2015 11:18 6 (specimen) AM EST 11:24 AM EST Resulting Agency Comment Spec In Lab Primo Rodríguez MD HEMATOLOGY ORDERABLES Performing Organization Address City/State/[place] [address] CERNER MILLENNIUM (ABNORMAL) Hemogram (10/20/2015 11:18 AM EST) P athologist Signature WBC 6.6 4.0 - 10.0 CERNER x10(3)/mcL MILLENNIUM RBC 3.84 (L) 3.93 - CERNER 5.22 MILLENNIUM x10(6)/mcL Hemoglobin 11.2 11.2 - CERNER 15.7 gm/dL MILLENNIUM Hematocrit 34.2 34.0 - CERNER 45.0 % MILLENNIUM MCV 89.1 79.0 - CERNER 94.0 fL MILLENNIUM MCH 29.2 26.6 - CERNER 32.2 pg MILLENNIUM MCHC 32.7 32.0 - CERNER 36.5 gm/dL MILLENNIUM Platelets 302 145 - 370 CERNER x10(3)/mcL MILLENNIUM RDWSD 48.6 (H) 35.0 - CERNER 46.0 fL MILLENNIUM RDWCV 14.9 (H) 10.9 - CERNER 14.4 % MILLENNIUM MPV 10.1 9.0 - 12.0 CERNER fL MILLENNIUM Specimen Anatomical Collection Method Collection Time Receive d Time (Source) Location / / Volume Laterality Blood specimen 10/20/2015 11:18 6 (specimen) AM EST 11:24 AM EST Resulting Agency Comment Spec In Lab Primo Rodríguez MD HEMATOLOGY ORDERABLES Performing Organization Address City/[facility]/ZIP Code Phon e Number [address] CERNER MILLENNIUM Proteinase-3 Antibody (10/20/2015 11:18 AM EST) P athologist Signature PR3 Ab <2.0 <=20.0 CERNER unit(s) MILLENNIUM Specimen Anatomical Collection Method Collection Time Receive d Time (Source) Location / / Volume Laterality Blood specimen 10/20/2015 11:18 6 1:53 (specimen) AM EST PM EST Resulting Agency Comment Spec In Lab Primo Rodríguez MD CHEMISTRY ORDERABLES Performing Organization Address City/[facility]/ZIP Code Phon e Number [address] CERNER MILLENNIUM Myeloperoxidase Ab (10/20/2015 11:18 AM EST) P athologist Signature MPO Ab <2.0 <=20.0 CERNER unit(s) MILLENNIUM Specimen Anatomical Collection Method Collection Time Receive d Time (Source) Location / / Volume Laterality Blood specimen 10/20/2015 11:18 6 1:53 (specimen) AM EST PM EST Resulting Agency Comment Spec In Lab Primo Rodríguez MD CHEMISTRY ORDERABLES Performing Organization Address City/[facility]/[place] [address] CERNER MILLENNIUM Cytoplasmic Neutrophilic Ab (10/20/2015 11:18 AM EST) athologist Signature C-ANCA Negative Negative CERNER MILLENNIUM Comment: Test Performed by: [facility] [place] [address] Swimming Pool Service Technician: Christian Bridges II, M.D., Ph.D. P-ANCA Negative Negative CERNER MILLENNIUM Comment: Negative for cANCA and pANCA patterns by immunofluorescence. Test Performed by: [facility] [place] [address] Swimming Pool Service Technician: Christian Bridges II, M.D., Ph.D. Specimen Anatomical Collection Method Collection Time Receive d Time (Source) Location / / Volume Laterality Blood specimen 10/20/2015 11:18 6 1:13 (specimen) AM EST PM EST Resulting Agency Comment Spec In Lab Primo Rodírguez MD CHEMISTRY ORDERABLES Performing Organization Address City/[facility] Code Phon e Number [address] CERNER MILLENNIUM VICENTE (10/20/2015 11:18 AM EST) athologist Signature VICENTE Neg Neg CERNER MILLENNIUM Specimen Anatomical Collection Method Collection Time Receive d Time (Source) Location / / Volume Laterality Blood specimen 10/20/2015 11:18 6 1:53 (specimen) AM EST PM EST Resulting Agency Comment Spec In Lab Primo Rodríguez MD IMMUNOLOGY ORDERABLES Performing Organization Address [facility] Phon e Number [address] CERNER MILLENNIUM Creatinine (10/20/2015 11:18 AM EST) athologist Signature Creatinine 0.82 0.70 - 1.20 CERNER mg/dL [facility] Comment: Please note that the pediatric reference intervals supplied above were not validated at [facility]. Results from pediatri c patients should be interpreted in conjunction to the patient's age, height and muscle mass. Estimated GFR >60 >=60 SANDY FRANCEU M Comment: This estimated GFR (eGFR) value [...] the following links into your internet browser. [email or web address] Specimen Anatomical Collection Method Collection Time Receive d Time (Source) Location / / Volume Laterality Blood specimen 10/20/2015 11:18 6 (specimen) AM EST 11:24 AM EST Resulting Agency Comment Spec In Lab Primo Rodríguez MD CHEMISTRY ORDERABLES Performing Organization Address City/[facility]/ZIP Code Phon e Number [address] CERNER MILLENNIUM Platelet count (10/20/2015 11:18 AM EST) P athologist Signature Platelets 302 145 - 370 CERNER x10(3)/mcL MILLENNIUM Specimen Anatomical Collection Method Collection Time Receive d Time (Source) Location / / Volume Laterality Blood specimen 10/20/2015 11:18 6 (specimen) AM EST 11:24 AM EST Resulting Agency Comment Spec In Lab Primo Rodríguez MD HEMATOLOGY ORDERABLES Performing Organization Address City/[facility] [place] [address] CERNER MILLENNIUM High Sensitivity CRP (10/20/2015 11:18 AM EST) P athologist Signature CRP High Sens 5.8 mg/L CERNER MILLENNIUM Comment: Interpretations: 1) For [...] Location / / Volume Laterality Blood specimen 10/20/2015 11:18 6 (specimen) AM EST 11:24 AM EST Resulting Agency Comment Spec In Lab Primo Rodríguez MD CHEMISTRY ORDERABLES Performing Organization Address City/State/ZIP Code Phon e Number [address] CERCureLauncher (ABNORMAL) Sedimentation rate (10/20/2015 11:18 AM EST) P athologist Signature Sed Rate 86 (H) 0 - 20 CERNER mm/hr MILLENNIUM Specimen Anatomical Collection Method Collection Time Receive d Time (Source) Location / / Volume Laterality Blood specimen 10/20/2015 11:18 6 (specimen) AM EST 11:24 AM EST Resulting Agency Comment Spec In Lab Primo Rodríguez MD HEMATOLOGY ORDERABLES Performing Organization Address City/State/[place] [address] CERNER Sun [employer] documented in this encounter Visit Diagnoses Diagnosis Vision loss of left eye Unqualified visual loss, one eye Vision loss of left eye Unqualified visual loss, one eye documented in this encounter Care Teams Concrete Paver Relationship Specialty Start Date End Date Zoey Lucas MD PCP - General 09/05/[address] [place] [address] documented as of this encounter
--- OUTSIDE RECORDS SUMMARY | 2022-07-27 00:19 | XMS_ITS | Encounter Summary ---
:1940 Author Organization [facility] [address] Care Team Providers Name Role Phone Zoey Lucas MD Primary Care Provider Reason for Visit Reason Comments Loss of Vision for follow up Auth/Cert Specialty Diagnoses / Procedures Referred By Contact Refer red To Contact Diagnoses Giant cell arteritis headaches, r/o temporal arteritis Procedures LIGATION OR BIOPSY, TEMPORAL ARTERY Referral ID Status Reason Start Date Expiration Date Visits Requ ested Visits Authorized [id number] 1 1 Encounter Details Date Type Department Care Team Description 10/27/2015 Office Visit Ophthalmology at [facility] Anabela Rodríguez, Inflammation of extraocular muscles, unspecified laterality; [facility] MD Primo [place] [address] CENTER [phone] OPHTHALMOLOGY [place], [place] [address] Social History Tobacco Use Types [...] encounter Progress Notes Primo Rodríguez MD - 10/27/2015 12:55 PM EST OCT only documented in this encounter Miscellaneous Notes Addendum Note - John Urena - 10/27/2015 1:02 PM EST Addended by: JOHN URENA on: 10/27/2015 01:02 PM Modules accepted: Orders documented in this encounter Plan of Treatment Not on filedocumented as of this encounter Procedures Procedure Name Priority Date/Time Associated Diagnosis Comme nts THYROID STIMULATING Routine 10/27/2015 1:06 PM Inflammation of Results for this IMMUNOGLOBULIN-DURHAM EST extraocular muscles, procedure are in unspecified the results laterality section. OCT OPTIC NERVE - OU Routine 10/27/2015 12:56 Visual field def ects Results for this - BOTH EYES PM EST procedure are i n the results section. documented in this encounter Results (ABNORMAL) Thyroid Stimulating Immunoglobulin (10/27/2015 1:06 PM EST) athologist Signature [facility] 3.2 (H) <=1.3 TS CERNER index [facility] Comment: Test Performed by: [facility] - [address] [address] Trash Man: Christian Bridges II, M.D., Ph.D. Specimen Anatomical Collection Method Collection Time Receive d Time (Source) Location / / Volume Laterality Blood specimen 10/27/2015 1:06 PM 016 3:23 (specimen) EST PM EST Resulting Agency Comment Spec In Lab Primo Rodríguez MD IMMUNOLOGY ORDERABLES Performing Organization Address City/State/ZIP Code Phon e Number [place] [phone] LAB[address] SANDY TellMi OCT OPTIC [id number] EYES (10/27/2015 12:56 PM EST) Anatomical Region Laterality Modality Other Specimen (Source) Anatomical Location Collection Method / Collectio n Time Received Time / Laterality Volume Narrative 10/27/2015 12:56 PM EST Right Eye Quality was good. [...] documented in this encounter Visit Diagnoses Diagnosis Inflammation of extraocular muscles, uns pecified laterality Visual field defects Visual field defect, unspecified documented in this encounter Care Teams Paint Process Engineer Relationship Specialty Start Date End Date Zoey Lucas MD PCP - General 09/05/[address] [place] [address] documented as of this encounter
--- OUTSIDE RECORDS SUMMARY | 2022-07-27 00:20 | XMS_ITS | Encounter Summary ---
:1940 Author Organization [facility] Address [facility] [place] [address] Care Team Providers Name Role Phone Zoey Lucas MD Primary Care Provider Encounter Details Date Type Department Care Team Description 11/29/2010 Follow-Up Allergy at [facility] Bart Andrews MD [facility] Lizet carbajal [facility] [place] [address] ALLERGY AND IMMUNOLOGY [phone] [place], [place] [address] (Wo rk) Social History Tobacco Use Types Packs/Day Years Used Date Never Assessed Sex Assigned at Date Recorded Female 02/10/2021 8:25 AM EDT documented as of this encounter Plan of Treatment Not on filedocumented as of this encounter Procedures Procedure Name Priority Date/Time Associated Diagnosis Comme nts DIFFERENTIAL, Routine 11/29/2010 11:38 AM Results for this AUTOMATED EST procedure are i n the results section. CBC (WITH DIFF) Routine 11/29/2010 11:38 AM Resul ts for this EST procedure are i n the results section. documented in this encounter Results (ABNORMAL) REFLEX LAB-A-DIFF (11/29/2010 11:38 AM EST) [facility] Method Time Signature Neutrophils % 51.5 34.0 - CERNER 71.0 % MILLENNIUM Neutr Abs (ANC) 3.30 1.50 - CERNER 6.30 MILLENNIUM x10(3)/mcL Lymphocytes % 27.8 19.0 - CERNER 53.0 % MILLENNIUM Lymphocytes Abs 1.8 1.0 - 3.6 CERNER x10(3)/mcL MILLENNIUM Monocytes % 9.8 4.0 - 13.0 CERNER % MILLENNIUM Monocyte Abs 0.6 0.2 - 1.0 CERNER x10(3)/mcL MILLENNIUM Eosinophils % 9.5 (H) 0.0 - 7.0 CERNER % MILLENNIUM Eosinophils Abs 0.6 (H) 0.0 - 0.5 CERNER x10(3)/mcL MILLENNIUM Basophils % 1.2 0.0 - 2.0 CERNER % MILLENNIUM Basophils Abs 0.1 0.0 - 0.2 CERNER x10(3)/mcL MILLENNIUM Immature Gran % 0.20 0.00 - CERNER 0.66 % MILLENNIUM Comment: Immature granulocytes(IG's)percentage an d absolute [...] Location / / Volume Laterality Blood specimen 11/29/2010 11:38 1 (specimen) AM EST 11:49 AM EST Bart Andrews MD HEMATOLOGY ORDERABLES Performing Organization Address City/State/[place] [address] CERNER MILLENNIUM CBC (11/29/2010 11:38 AM EST) P athologist Signature WBC 6.4 4.0 - 10.0 CERNER x10(3)/mcL MILLENNIUM RBC 4.22 3.93 - 5.22 CERNER x10(6)/mcL MILLENNIUM Hemoglobin 12.6 11.2 - 15.7 CERNER gm/dL MILLENNIUM Hematocrit 37.1 34.0 - 45.0 CERNER % MILLENNIUM MCV 87.9 79.0 - 94.0 CERNER fL MILLENNIUM MCH 29.9 26.6 - 32.2 CERNER pg MILLENNIUM MCHC 34.0 32.0 - 36.5 CERNER gm/dL MILLENNIUM Platelets 348 145 - 370 CERNER x10(3)/mcL MILLENNIUM RDWSD 39.7 35.0 - 46.0 CERNER fL MILLENNIUM RDWCV 12.3 10.9 - 14.4 CERNER % MILLENNIUM MPV 9.9 9.0 - 12.0 CERNER fL MILLENNIUM Specimen Anatomical Collection Method Collection Time Receive d Time (Source) Location / / Volume Laterality Blood specimen 11/29/2010 11:38 1 (specimen) AM EST 11:49 AM EST Bart Andrews MD HEMATOLOGY ORDERABLES Performing Organization Address City/State/[place] [address] CERNER MILLENNIUM documented in this encounter Visit Diagnoses Not on filedocumented in this encounter Care Teams Shoulder Joiner Relationship Specialty Start Date End Date Zoey Lucas MD PCP - General 09/05/[address] [place] [address] documented as of this encounter
--- OUTSIDE RECORDS SUMMARY | 2022-07-27 00:20 | XMS_ITS | Encounter Summary ---
:1940 Author Organization [facility] [place] [address] Care Team Providers Name Role Phone Zoey Lucas MD Primary Care Provider Encounter Details Date Type Department Care Team Description 11/21/2010 Hospital Encounter [place] [address] Social History Tobacco Use Types Packs/Day Years Used Date Never Assessed Sex Assigned at Date Recorded Female 02/10/2021 8:25 AM EDT documented as of this encounter Plan of Treatment Not on filedocumented as of this encounter Visit Diagnoses Not on filedocumented in this encounter Care Teams Jordan Man Relationship Specialty Start Date End Date Zoey Lucas MD PCP - General 09/05/[address] [place], [place] [id number] documented as of this encounter
--- OUTSIDE RECORDS SUMMARY | 2022-07-27 00:20 | XMS_ITS | Encounter Summary ---
:1940 Author Organization [facility] Address [facility] [place] [address] Care Team Providers Name Role Phone Zoey Lucas MD Primary Care Provider Encounter Details Date Type Department Care Team Description 11/21/2010 Follow-Up Allergy at [facility] Bart Andrews MD [facility] Lizet carbajal [facility] [place] [address] ALLERGY AND IMMUNOLOGY [phone] [place], [place] [address] (Wo rk) Social History Tobacco Use Types Packs/Day Years Used Date Never Assessed Sex Assigned at Date Recorded Female 02/10/2021 8:25 AM EDT documented as of this encounter Plan of Treatment Not on filedocumented as of this encounter Procedures Procedure Name Priority Date/Time Associated Diagnosis Comme nts DIFFERENTIAL, Routine 11/21/2010 3:32 PM Results for this AUTOMATED EST procedure are i n the results section. TISSUE Routine 11/21/2010 3:32 PM Results f or this TRANSGLUTAMINASE, EST procedure are in IGA the results section. CBC (WITH DIFF) Routine 11/21/2010 3:32 PM Result s for this EST procedure are i n the results section. IGA Routine 11/21/2010 3:32 PM Results f or this EST procedure are i n the results section. documented in this encounter Results (ABNORMAL) REFLEX LAB-A-DIFF (11/21/2010 3:32 PM EST) [facility] gist Method Time Signature Neutrophils % 80.2 (H) 34.0 - CERNER 71.0 % MILLENNIUM Neutr Abs (ANC) 9.55 (H) 1.50 - CERNER 6.30 MILLENNIUM x10(3)/mc L Lymphocytes % 10.3 (L) 19.0 - CERNER 53.0 % MILLENNIUM Lymphocytes Abs 1.2 1.0 - 3.6 CERNER x10(3)/mc MILLENNIUM L Monocytes % 7.5 4.0 - CERNER 13.0 % MILLENNIUM Monocyte Abs 0.9 0.2 - 1.0 CERNER x10(3)/mc MILLENNIUM L Eosinophils % 1.5 0.0 - 7.0 CERNER % MILLENNIUM Eosinophils Abs 0.2 0.0 - 0.5 CERNER x10(3)/mc MILLENNIUM L Basophils % 0.3 0.0 - 2.0 CERNER % MILLENNIUM Basophils Abs 0.0 0.0 - 0.2 CERNER x10(3)/mc MILLENNIUM L Immature Gran % 0.20 0.00 - CERNER 0.66 % MILLENNIUM Comment: Immature granulocytes(IG's)percentage an d absolute count will include metamyelocytes, myelocytes, and promyelo cytes. Blood smears from CBCs yielding IG's will be scanned manually for concor dance. If this scan disagrees with the automated IG or if promyelocytes are not ed, a manual differential will be performed. Lida Gran Abs 0.02 0.00 - 0.05 x10(3)/mcL CER NER MILLENNIUM Specimen Anatomical Collection Method Collection Time Receive d Time (Source) Location / / Volume Laterality Blood specimen 11/21/2010 3:32 PM 011 3:39 (specimen) EST PM EST Bart Andrews MD HEMATOLOGY ORDERABLES Performing Organization Address City/[facility]/ZIP Code Phon e Number [address] CERNER MILLENNIUM TISSUE TRANSGLUTAMINASE, IGA (11/21/2010 3:32 PM EST) P athologist Signature TTG IgA Ab <4.0 <=3.9 u/ml CERNER MILLENNIUM Comment: Result Interpretation: Negative: ?<4 U/mL Weak Positive: ??4-10 U/mL Positive: ?>10 U/mL Specimen Anatomical Collection Method Collection Time Receive d Time (Source) Location / / Volume Laterality Blood specimen 11/21/2010 3:32 PM 011 8:29 (specimen) EST AM EST Bart Andrews MD IMMUNOLOGY ORDERABLES Performing Organization Address City/[facility]/ZIP Code Phon e Number [address] CERNER MILLENNIUM IGA (11/21/2010 3:32 PM EST) athologist Signature IgA 107 70 - 400 CERNER mg/dL MILLENNIUM Specimen Anatomical Collection Method Collection Time Receive d Time (Source) Location / / Volume Laterality Blood specimen 11/21/2010 3:32 PM 011 3:39 (specimen) EST PM EST Bart Andrews MD IMMUNOLOGY ORDERABLES Performing Organization Address City/[facility]/ZIP [facility] Phon e Number [address] CERNER MILLENNIUM (ABNORMAL) CBC (11/21/2010 3:32 PM EST) P athologist Signature WBC 11.9 (H) 4.0 - 10.0 CERNER x10(3)/mcL MILLENNIUM RBC 4.12 3.93 - CERNER 5.22 MILLENNIUM x10(6)/mcL Hemoglobin 12.4 11.2 - CERNER 15.7 gm/dL MILLENNIUM Hematocrit 37.1 34.0 - CERNER 45.0 % MILLENNIUM MCV 90.0 79.0 - CERNER 94.0 fL MILLENNIUM MCH 30.1 26.6 - CERNER 32.2 pg MILLENNIUM MCHC 33.4 32.0 - CERNER 36.5 gm/dL ENNIUM Platelets 285 145 - 370 CERNER x10(3)/mcL MILLENNIUM RDWSD 40.4 35.0 - CERNER 46.0 fL MILLENNIUM RDWCV 12.4 10.9 - CERNER 14.4 % MILLENNIUM MPV 10.7 9.0 - 12.0 CERNER fL MILLENNIUM Specimen Anatomical Collection Method Collection Time Receive d Time (Source) Location / / Volume Laterality Blood specimen 11/21/2010 3:32 PM 011 3:39 (specimen) EST PM EST Bart Andrews MD HEMATOLOGY ORDERABLES Performing Organization Address City/State/[place] [address] [facility] documented in this encounter Visit Diagnoses Not on filedocumented in this encounter Care Teams Rigging Up Worker Relationship Specialty Start Date End Date Zoey Lucas MD PCP - General 09/05/[address] [place] [address] documented as of this encounter
--- OUTSIDE RECORDS SUMMARY | 2022-07-27 00:20 | XMS_ITS | Encounter Summary ---
:1940 [place] [address] Care Team Providers Name Role Phone Zoey Lucas MD Primary Care Provider Encounter Details Date Type Department Care Team Description 10/26/2010 Orders Only Lab [facility] Bart Watkins MD [facility] Lizet carbajal [place] [address] [place] [address] [phone] (Wo rk) Social History Tobacco Use Types Packs/Day Years Used Date Never Assessed Sex Assigned at Date Recorded Female 02/10/2021 8:25 AM EDT documented as of this encounter Plan of Treatment Not on filedocumented as of this encounter Procedures Procedure Name Priority Date/Time Associated Comments Diagnosis ALTERNARIA TENUIS, IGE Routine 10/26/2010 4:40 PM Results for this EST procedure are i n the results section. IMMUNOGLOBULIN E (IGE) Routine 10/26/2010 4:40 PM Results for this EST procedure are i n the results section. HOUSE DUST MITES/D.F., Routine 10/26/2010 4:40 PM Results for this IGE EST procedure are i n the results section. HOUSE DUST MITES/D.P., Routine 10/26/2010 4:40 PM Results for this IGE EST procedure are i n the results section. DIFFERENTIAL, AUTOMATED Routine 10/26/2010 4:40 PM Results for this EST procedure are i n the results section. OAK IGE Routine 10/26/2010 4:40 PM Results f or this EST procedure are i n the results section. ELM IGE Routine 10/26/2010 4:40 PM Results f or this EST procedure are i n the results section. BIRCH, SILVER IGE Routine 10/26/2010 4:40 PM Resu lts for this EST procedure are i n the results section. DOG EPITHELIUM IGE Routine 10/26/2010 4:40 PM Res ults for this EST procedure are i n the results section. ASPERGILLUS FUMIGATUS Routine 10/26/2010 4:40 PM Results for this IGE EST procedure are i n the results section. CAT EPITHELIUM IGE Routine 10/26/2010 4:40 PM Res ults for this EST procedure are i n the results section. RAGWEED, SHORT/ COMMON Routine 10/26/2010 4:40 PM Results for this IGE EST procedure are i n the results section. PIGWEED, ROUGH IGE Routine 10/26/2010 4:40 PM Res ults for this EST procedure are i n the results section. CALDWELL'S QUARTER IGE Routine 10/26/2010 4:40 PM Res ults for this EST procedure are i n the results section. MAURI GRASS IGE Routine 10/26/2010 4:40 PM Resu lts for this EST procedure are i n the results section. MAPLE / BOX ELDER IGE Routine 10/26/2010 4:40 PM Results for this EST procedure are i n the results section. BEECH IGE Routine 10/26/2010 4:40 PM Results f or this EST procedure are i n the results section. KAL, WHITE IGE Routine 10/26/2010 4:40 PM Results for this EST procedure are i n the results section. CBC (WITH DIFF) Routine 10/26/2010 4:40 PM Result s for this EST procedure are i n the results section. documented in this encounter Results ALLERGEN ASPERGILLUS FUMIGATUS (10/26/2010 4:40 PM EST) athologist Signature A Fumigatus <0.35 kU/L CERNER IgE MILLENNIUM Comment: Class 0 (Negative <0.35) Test Performed by: [facility] Dpt of Lab Med and Pathology [address] [place] [address] Ambulance Officer: Dg gentile III, M.D. Specimen Anatomical Collection Method Collection Time Receive d Time (Source) Location / / Volume Laterality Blood specimen 10/26/2010 4:40 PM 011 5:15 (specimen) EST PM EST Bart Andrews MD IMMUNOLOGY ORDERABLES Performing Organization Address City/[facility] [place] [address] CERNER MILLENNIUM ALLERGEN ALTERNARIA TENUIS, IGE[place] (10/26/2010 4:40 PM EST) athologist Signature Alt Tenuis IgE <0.35 kU/L CERNER MILLENNIUM Comment: Class 0 (Negative <0.35) Test Performed by: [facility] D[facility] of Lab Med and Pathology [address] [place] [address] Ambulance Officer: Dg gentile III, M.D. Specimen Anatomical Collection Method Collection Time Receive d Time (Source) Location / / Volume Laterality Blood specimen 10/26/2010 4:40 PM 011 5:15 (specimen) EST PM EST Bart Andrews MD IMMUNOLOGY ORDERABLES Performing Organization Address City/[facility] [place] [address] CERNER MILLENNIUM ALLERGEN HOUSE DUST MITES/D.F., IGE[place] (10/26/2010 4:40 PM EST) athologist Signature Mites/D.F. IgE <0.35 kU/L CERNER MILLENNIUM Comment: Class 0 (Negative <0.35) Test Performed by: [facility] Dpt of Lab Med and Pathology [address] [place] [address] Ambulance Officer: Dg gentile III, M.D. Specimen Anatomical Collection Method Collection Time Receive d Time (Source) Location / / Volume Laterality Blood specimen 10/26/2010 4:40 PM 011 5:15 (specimen) EST PM EST Bart Andrews MD IMMUNOLOGY ORDERABLES Performing Organization Address City/[facility]/[place] [address] CERNER MILLENNIUM ALLERGEN HOUSE DUST MITES/D.P., IGE-[place] (10/26/2010 4:40 PM EST) P athologist Signature Mites/D.P. IgE <0.35 kU/L CERNER MILLENNIUM Comment: Class 0 (Negative <0.35) Test Performed by: [facility] Dpt of Lab Med and Pathology [address] [place] [address] Ambulance Officer: Dg gentile III, M.D. Specimen Anatomical Collection Method Collection Time Receive d Time (Source) Location / / Volume Laterality Blood specimen 10/26/2010 4:40 PM 011 5:15 (specimen) EST PM EST Bart Andrews MD IMMUNOLOGY ORDERABLES Performing Organization Address City/[facility] Code Phon e Number [address] CERNER MILLENNIUM ALLERGEN MAURI IGE (10/26/2010 4:40 PM EST) athologist Signature Mauri Grass <0.35 kU/L CERNER IgE MILLENNIUM Comment: Class 0 (Negative <0.35) Test Performed by: [facility] D[facility] of Lab Med and Pathology [address] [place] [address] Ambulance Officer: Dg gentile III, M.D. Specimen Anatomical Collection Method Collection Time Receive d Time (Source) Location / / Volume Laterality Blood specimen 10/26/2010 4:40 PM 011 5:15 (specimen) EST PM EST Bart Andrews MD IMMUNOLOGY ORDERABLES Performing Organization Address City/[facility]/[place] [address] CERNER MILLENNIUM ALLERGEN MAPLE/BOX ELDER IGE (10/26/2010 4:40 PM EST) P athologist Signature Box <0.35 kU/L CERNER Elder/Maple MILLENNIUM IgE Comment: Class 0 (Negative <0.35) Test Performed by: [facility] Dpt of Lab Med and Pathology [address] [place] [address] Ambulance Officer: Dg gentile III, M.D. Specimen Anatomical Collection Method Collection Time Receive d Time (Source) Location / / Volume Laterality Blood specimen 10/26/2010 4:40 PM 011 5:15 (specimen) EST PM EST Bart Andrews MD IMMUNOLOGY ORDERABLES Performing Organization Address City/[facility] Phon e [address] CERNER MILLENNIUM ALLERGEN KAL, WHITE IGE (10/26/2010 4:40 PM EST) P athologist Signature White Kal IgE <0.35 kU/L CERNER MILLENNIUM Comment: Class 0 (Negative <0.35) Test Performed by: [facility] D[facility] of Lab Med and Pathology [address] [place] [address] Ambulance Officer: Dg gentile III, M.D. Specimen Anatomical Collection Method Collection Time Receive d Time (Source) Location / / Volume Laterality Blood specimen 10/26/2010 4:40 PM 011 5:15 (specimen) EST PM EST Bart Andrews MD IMMUNOLOGY ORDERABLES Performing Organization Address City/[facility] Phon e Number [address] CERNER MILLENNIUM ALLERGEN PIGWEED, ROUGH IGE (10/26/2010 4:40 PM EST) P athologist Signature Rough Pigweed <0.35 kU/L CERNER IgE MILLENNIUM Comment: Class 0 (Negative <0.35) Test Performed by: [facility] Dpt of Lab Med and Pathology [address] [place] [address] Ambulance Officer: Dg gentile III, M.D. Specimen Anatomical Collection Method Collection Time Receive d Time (Source) Location / / Volume Laterality Blood specimen 10/26/2010 4:40 PM 011 5:15 (specimen) EST PM EST Bart Andrews MD IMMUNOLOGY ORDERABLES Performing Organization Address City/[facility]/[place] [address] CERNER MILLENNIUM ALLERGEN CALDWELL'S QUARTER IGE (10/26/2010 4:40 PM EST) P athologist Signature Caldwell's [place] <0.35 kU/L CERNER IgE MILLENNIUM Comment: Class 0 (Negative <0.35) Test Performed by: [facility] D[facility] of Lab Med and Pathology [address] [place] [address] Ambulance Officer: Dg gentile III, M.D. Specimen Anatomical Collection Method Collection Time Receive d Time (Source) Location / / Volume Laterality Blood specimen 10/26/2010 4:40 PM 011 5:15 (specimen) EST PM EST Bart Andrews MD IMMUNOLOGY ORDERABLES Performing Organization Address City/[facility] Code Phon e Number [address] CERNER MILLENNIUM ALLERGEN BIRCH (10/26/2010 4:40 PM EST) athologist Signature Silver Birch <0.35 kU/L CERNER IgE MILLENNIUM Comment: Class 0 (Negative <0.35) Test Performed by: [facility] Dpt of Lab Med and Pathology [address] [place] [address] Ambulance Officer: Dg gentile III, M.D. Specimen Anatomical Collection Method Collection Time Receive d Time (Source) Location / / Volume Laterality Blood specimen 10/26/2010 4:40 PM 011 5:15 (specimen) EST PM EST Bart Andrews MD IMMUNOLOGY ORDERABLES Performing Organization Address City/[facility]/[place] [address] CERNER MILLENNIUM ALLERGEN OAK, IGE (10/26/2010 4:40 PM EST) P athologist Signature Barlow IgE <0.35 kU/L CERNER MILLENNIUM Comment: Class 0 (Negative <0.35) Test Performed by: [facility] D[facility] of Lab Med and Pathology [address] [place] [address] Ambulance Officer: Dg gentile III, M.D. Specimen Anatomical Collection Method Collection Time Receive d Time (Source) Location / / Volume Laterality Blood specimen 10/26/2010 4:40 PM 011 5:15 (specimen) EST PM EST Bart Andrews MD IMMUNOLOGY ORDERABLES Performing Organization Address City/[facility] Phon e [address] CERNER MILLENNIUM ALLERGEN ELM TREE (10/26/2010 4:40 PM EST) P athologist Signature Elm IgE <0.35 kU/L CERNER MILLENNIUM Comment: Class 0 (Negative <0.35) Test Performed by: [facility] Dpt of Lab Med and Pathology [address] [place] [address] Ambulance Officer: Dg gentile III, M.D. Specimen Anatomical Collection Method Collection Time Receive d Time (Source) Location / / Volume Laterality Blood specimen 10/26/2010 4:40 PM 011 5:15 (specimen) EST PM EST Bart Andrews MD IMMUNOLOGY ORDERABLES Performing Organization Address City/[facility] Phon e [address] CERNER MILLENNIUM ALLERGEN BEECH/FRENCH IGE (10/26/2010 4:40 PM EST) P athologist Signature Beech IgE <0.35 kU/L CERNER MILLENNIUM Comment: Class 0 (Negative <0.35) Test Performed by: [facility] Dpt of Lab Med and Pathology [address] [place] [address] Ambulance Officer: Dg gentile III, M.D. Specimen Anatomical Collection Method Collection Time Receive d Time (Source) Location / / Volume Laterality Blood specimen 10/26/2010 4:40 PM 011 5:15 (specimen) EST PM EST Bart Andrews MD IMMUNOLOGY ORDERABLES Performing Organization Address City/[facility] [place] [address] CERNER MILLENNIUM ALLERGEN RAGWEED, SHORT/COMMON IGE (10/26/2010 4:40 PM EST) athologist Signature Ragweed IgE <0.35 kU/L CERNER MILLENNIUM Comment: Class 0 (Negative <0.35) Test Performed by: [facility] Dpt of Lab Med and Pathology [address] [place] [address] Ambulance Officer: Dg gentile III, M.D. Specimen Anatomical Collection Method Collection Time Receive d Time (Source) Location / / Volume Laterality Blood specimen 10/26/2010 4:40 PM 011 5:15 (specimen) EST PM EST Bart Andrews MD IMMUNOLOGY ORDERABLES Performing Organization Address City/[facility] [place] [address] CERNER MILLENNIUM ALLERGEN CAT EPITHELLIUM (10/26/2010 4:40 PM EST) athologist Signature Cat Epi IgE <0.35 kU/L CERNER MILLENNIUM Comment: Class 0 (Negative <0.35) Test Performed by: [facility] Dpt of Lab Med and Pathology [address] [place] [address] Ambulance Officer: Dg gentile III, M.D. Specimen Anatomical Collection Method Collection Time Receive d Time (Source) Location / / Volume Laterality Blood specimen 10/26/2010 4:40 PM 011 5:15 (specimen) EST PM EST Bart Andrews MD IMMUNOLOGY ORDERABLES Performing Organization Address City/[facility] [place] [address] CERNER MILLENNIUM ALLERGEN DOG EPITHELIUM (10/26/2010 4:40 PM EST) athologist Signature Dog Epi IgE <0.35 kU/L CERNER MILLENNIUM Comment: Class 0 (Negative <0.35) Test Performed by: [facility] Dpt of Lab Med and Pathology [address] [place] [address] Ambulance Officer: Dg gentile III, M.D. Specimen Anatomical Collection Method Collection Time Receive d Time (Source) Location / / Volume Laterality Blood specimen 10/26/2010 4:40 PM 011 5:15 (specimen) EST PM EST Bart Andrews MD IMMUNOLOGY ORDERABLES Performing Organization Address City/[facility]/[place] [address] CERNER MILLENNIUM (ABNORMAL) IGE-[place]QU[place] (10/26/2010 4:40 PM EST) P athologist Signature IgE 947 (H) kU/L CERNER MILLENNIUM Comment: Consistent with allergic disease -- REFERENCE VALUE -- Mean ??+1 SD ??+2 SD 13.2 ?? 41.0 ??127.0 Test Performed by: [facility] Dpt of Lab Med and Pathology [address] [place] [address] Ambulance Officer: Dg gentile III, M.D. Specimen Anatomical Collection Method Collection Time Receive d Time (Source) Location / / Volume Laterality Blood specimen 10/26/2010 4:40 PM 011 5:15 (specimen) EST PM EST Bart Andrews MD IMMUNOLOGY ORDERABLES Performing Organization Address City/State/ZIP Code Phon e Number [address] CERNER MILLENNIUM (ABNORMAL) REFLEX LAB-A-DIFF (10/26/2010 4:40 PM EST) Patholo gist Method Time Signature Neutrophils % 80.1 (H) 34.0 - CERNER 71.0 % MILLENNIUM Neutr Abs (ANC) 9.66 (H) 1.50 - CERNER 6.30 MILLENNIUM x10(3)/mc L Lymphocytes % 12.4 (L) 19.0 - CERNER 53.0 % MILLENNIUM Lymphocytes Abs 1.5 1.0 - 3.6 CERNER x10(3)/mc MILLENNIUM L Monocytes % 6.5 4.0 - CERNER 13.0 % MILLENNIUM Monocyte Abs 0.8 0.2 - 1.0 CERNER x10(3)/mc MILLENNIUM L Eosinophils % 0.3 0.0 - 7.0 CERNER % MILLENNIUM Eosinophils Abs 0.0 0.0 - 0.5 CERNER x10(3)/mc MILLENNIUM L Basophils % 0.5 0.0 - 2.0 CERNER % MILLENNIUM Basophils Abs 0.1 0.0 - 0.2 CERNER x10(3)/mc MILLENNIUM L Immature Gran % 0.20 0.00 - CERNER 0.66 % MILLENNIUM Comment: Immature granulocytes(IG's)percentage an d absolute count will include metamyelocytes, myelocytes, and promyelo cytes. Blood smears from CBCs yielding IG's will be scanned manually for concor dance. If this scan disagrees with the automated IG or if promyelocytes are not ed, a manual differential will be performed.v Lida Gran Abs 0.03 0.00 - 0.05 x10(3)/mcL CER NER MILLENNIUM Specimen Anatomical Collection Method Collection Time Receive d Time (Source) Location / / Volume Laterality Blood specimen 10/26/2010 4:40 PM 011 4:48 (specimen) EST PM EST Bart Andrews MD HEMATOLOGY ORDERABLES Performing Organization Address City/State/ZIP Code Phon e Number [place] [phone] CERNER MILLENNIUM (ABNORMAL) CBC (10/26/2010 4:40 PM EST) P athologist Signature WBC 12.1 (H) 4.0 - 10.0 CERNER x10(3)/mcL MILLENNIUM RBC 4.30 3.93 - CERNER 5.22 MILLENNIUM x10(6)/mcL Hemoglobin 12.9 11.2 - CERNER 15.7 gm/dL MILLENNIUM Hematocrit 40.3 34.0 - CERNER 45.0 % MILLENNIUM MCV 93.7 79.0 - CERNER 94.0 fL MILLENNIUM MCH 30.0 26.6 - CERNER 32.2 pg MILLENNIUM MCHC 32.0 32.0 - CERNER 36.5 gm/dL MILLENNIUM Platelets 345 145 - 370 CERNER x10(3)/mcL MILLENNIUM RDWSD 42.4 35.0 - CERNER 46.0 fL MILLENNIUM RDWCV 12.6 10.9 - CERNER 14.4 % [facility] MPV 10.7 9.0 - 12.0 SANDY [facility] Specimen Anatomical Collection Method Collection Time Receive d Time (Source) Location / / Volume Laterality Blood specimen 10/26/2010 4:40 PM 011 4:48 (specimen) EST PM EST Bart Andrews MD HEMATOLOGY ORDERABLES Performing Organization Address City/State/[place] [address] [facility] documented in this encounter Visit Diagnoses Not on filedocumented in this encounter Care Teams Roundsman Relationship Specialty Start Date End Date Zoey Lucas MD PCP - General 09/05/[address] [place] [address] documented as of this encounter
--- OUTSIDE RECORDS SUMMARY | 2022-07-27 00:20 | XMS_ITS | Encounter Summary ---
:1940 Author Organization [facility] Address [facility] [place] [address] Care Team Providers Name Role Phone Zoey Lucas MD Primary Care Provider Encounter Details Date Type Department Care Team Description 10/26/2010 Office Visit Allergy at [facility] Bart Andrews MD [facility] [place] [address] ALLERGY AND IMMUNOLOGY [phone] [place], [place] [address] (Wo rk) Social History Tobacco Use Types Packs/Day Years Used Date Never Assessed Sex Assigned at Date Recorded Female 02/10/2021 8:25 AM EDT documented as of this encounter Plan of Treatment Not on filedocumented as of this encounter Visit Diagnoses Not on filedocumented in this encounter Care Teams Research Pharmacist Relationship Specialty Start Date End Date Zoey Lucas MD PCP - General 09/05/[address] [place] [address] documented as of this encounter
--- OUTSIDE RECORDS SUMMARY | 2022-07-27 00:20 | XMS_ITS | Encounter Summary ---
:1940 Author Organization [facility] Address [facility] [place] [address] Care Team Providers Name Role Phone Zoey Lucas MD Primary Care Provider Encounter Details Date Type Department Care Team Description 11/27/2010 Follow-Up Allergy at [facility] Bart Andrews MD [facility] [place] [address] ALLERGY AND IMMUNOLOGY [phone] [place], [place] [address] (Wo rk) Social History Tobacco Use Types Packs/Day Years Used Date Never Assessed Sex Assigned at Date Recorded Female 02/10/2021 8:25 AM EDT documented as of this encounter Plan of Treatment Not on filedocumented as of this encounter Visit Diagnoses Not on filedocumented in this encounter Care Teams Progressive Care Manager Relationship Specialty Start Date End Date Zoey Lucas MD PCP - General 09/05/[address] [place] [address] documented as of this encounter
--- OUTSIDE RECORDS SUMMARY | 2022-07-27 00:23 | XMS_ITS | Encounter Summary ---
:1940 Author Organization [facility] Address [address] [place] [address] Care Team Providers Name Role Phone Unknown, Provider Primary Care Provider Encounter Details Date Type Department Care Team Description 10/20/2013 Hospital Encounter [facility] Unknown, Provider, Manan Hanson MD [address] [facility] [phone] [place] [address] (Work) [phone] Social History Tobacco Use Types Packs/Day Years Used Date Never Assessed Sex Assigned at Date Recorded Not on file documented as of this encounter Discharge Disposition Disposition Code Departure Means Destination Home or Self Alf documented in this encounter Plan of Treatment Not on filedocumented as of this encounter Visit Diagnoses Not on filedocumented in this encounter Care Teams Bookseamer Blindstitch Relationship Specialty Start Date End Date Unknown, Provider, PCP - General 12/06/09 documented as of this encounter
--- OUTSIDE RECORDS SUMMARY | 2022-07-27 00:23 | XMS_ITS | Encounter Summary ---
:1940 Author Organization [facility] Address [address] [place] [address] Care Team Providers Name Role Phone Unknown, Provider Primary Care Provider Encounter Details Date Type Department Care Team Description 03/27/2005 Results Only [facility] - Rosemary Merritt MD [address] [place] [phone] (Wo rk) Social History Tobacco Use Types Packs/Day Years Used Date Never Assessed Sex Assigned at Date Recorded Not on file documented as of this encounter Plan of Treatment Not on filedocumented as of this encounter Procedures Procedure Name Priority Date/Time Associated Diagnosis Comme [facility] SURGICAL PATHOLOGY Routine 03/27/2005 0:00 EDT Re sults for this procedure are i n the results section. documented in this encounter Results SURGICAL PATHOLOGY (03/27/2005 0:00 EDT) Pathology Report: SURGICAL PATHOLOGY REPORT SHABNAM ESTRADA Reports generated via electronic interface contain rian ginal data; LAB however they are lacking the format of the original re port. Caution should be taken when reading/interpreting unfo rmatted reports. Name: ? JAVIER JOE ? Accession #: ? [id number] ? : ? 1940 (Age: 64) ??F ? Collect Date: ? 03/27/2005 ? Location: ? [facility] ? Receive Date: ? 005 ? Provider: ROSEMARY HASSAN MD Copy to: LAURIE ACEVEDO TOY PAINTER ? Final Pathologic Diagnosis: ? Soft tissue, subcutaneous, foot, right, excisio n: - Leiomyoma. ??See comment. Comment: ? The nodule is compose d of smooth muscle and is associated with the smooth muscle wall of a blood vessel. ??(Dr. Colby)/[facility] Document reviewed and electronically signed by: LOCO COLBY MD Report ??Date: 04/02/2005 14:15 By the signature above, the attending physician certif ies that he/she has personally conducted a gross and/or microscopic examin ation of the described specimens and rendered or confirmed the above diagnosi s. Specimen(s) Received: ? Mass connective tissue subcutaneous foot Clinical History: ? Mass right foot Gross Description: ? Received in formalin labelled Tatyana and mass connective tissue subcutaneous from right foot is a pedraza-white, firm, fibrous, previously incised, 0.7 x 0.5 x 0.4 cm nodule. ? ?The specimen is inked, longitudinally bisected, and is entirely submitted in one cassette. ??(Leticia Polanco) /[facility] End of Report Specimen Performing Organization Address City/State/ZIP Code Phon e Number [facility] [address] [place] [address] SERVICES [facility] [address] [place] [address] documented in this encounter Visit Diagnoses Not on filedocumented in this encounter Care Teams Cofounder Relationship Specialty Start Date End Date Unknown, Provider, PCP - General 12/06/09 documented as of this encounter
--- OUTSIDE RECORDS SUMMARY | 2022-07-27 00:23 | XMS_ITS | Encounter Summary ---
:1940 Author Organization [facility] Address [address] [place] [address] Care Team Providers Name Role Phone Unknown, Provider Primary Care Provider Encounter Details Date Type Department Care Team Description 02/05/2001 Results Only [facility] - Ericka Kline MD conversion [address] [place] [address] Social History Tobacco Use Types Packs/Day Years Used Date Never Assessed Sex Assigned at Date Recorded Not on file documented as of this encounter Plan of Treatment Not on filedocumented as of this encounter Procedures Procedure Name Priority Date/Time Associated Diagnosis Comme nts CYTOPATHOLOGY Routine 02/05/2001 0:00 EDT Results for this procedure are i n the results section . documented in this encounter Results CYTOPATHOLOGY (02/05/2001 0:00 EDT) Pathology Report: CYTOPATHOLOGY REPORT [facility] Reports generated via electronic interface contain rian ginal data; however they are lacking the format of the original re port. Caution should be taken when reading/interpreting unfo rmatted reports. Name: ? JAVIER JOE ? Accession #: ? [id number] : ? 1940 (Age: 60) ??F ?Collect Date: ? 01/13 Location: ? [facility] ? Receive Date : ? 02/07/2001 Provider: ?ERICKA PEÑALOZA MD Copy to: ? Specimen/Source: ?Conventional Pap Test, Cer vix/Endocervix Last Menstrual Period: ? Menstrual/ Status: ? Post Menopausal ? SPECIMEN ADEQUACY ? Satisfactory for evaluation. GENERAL CATEGORIZATION ? Within Normal Limits ? Document reviewed and electronically signed by: ? Kaitlyn Dove [facility]) ? Report Date: ??02/10/2001 14:33 End of Report Specimen Performing Organization Address City/State/ZIP Code Phon e Number [facility] [address] [place] [address] SERVICES [facility] [address] [place] [address] documented in this encounter Visit Diagnoses Not on filedocumented in this encounter Care Teams Inventory Control Analyst Relationship Specialty Start Date End Date Unknown, Provider, PCP - General 12/06/09 documented as of this encounter
--- OUTSIDE RECORDS SUMMARY | 2022-07-27 00:23 | XMS_ITS | Encounter Summary ---
:1940 Author Organization [facility] Address [address] [place] [address] Care Team Providers Name Role Phone Unavailable Primary Care Provider Unavailable Encounter Details Date Type Department Care Team Description 12/01/2009 Orders Only [facility] Megan Lucas MD Laboratory Services - [address] [place] [address] [address] [address] [place] [address] [phone] Social History Tobacco Use Types Packs/Day Years Used Date Never Assessed Sex Assigned at Date Recorded Not on file documented as of this encounter Plan of Treatment Not on filedocumented as of this encounter Procedures Procedure Name Priority Date/Time Associated Diagnosis Comme [facility] SURGICAL PATHOLOGY Routine 12/01/2009 0:00 EST Re sults for this procedure are i n the results section. documented in this encounter Results SURGICAL PATHOLOGY (12/01/2009 0:00 EST) Pathology Report: SURGICAL PATHOLOGY REPORT ? [facility] Reports generated via [employer] interface contain original data; ? LAB however they are lacking the format of the original report. ? Caution should be taken when reading/interpreting unformatted reports. ? Name: ? TATYANA, JAVIER ? Accession #: ? [id number] ? : ? 1940 (Age: 69) ??F ? Collec t Date: ? 12/01/2009 ? Location: ? [facility] ? R eceive Date: ? 12/02/2009 ? Provider: REBECCA M DOBBERTIN MD ? Copy to: ? Final Pathologic Diagnosis: ? Skin of neck, punch b iopsy: ? - Spongiotic dermatitis. ??S ee comment. ? Comment: ? The biopsy shows feat ures of mild acute spongiotic (eczematous) dermatitis. There are a moderate number of eosinophils within the inflammatory infiltrate, thus, allergic contact derma titis is a consideration. ??Other forms of eczematous dermatitis would also be inc luded in the differential diagnosis. (Dr. Hester)/mpl ? Microscopic Description: ? Sections consist of a punch biopsy of skin to the deep reticular dermis. ?? The stratum corneum is gener ally composed of a normal layer of basketweave ? orthokeratin. ??There are ra re, small mounds of parakeratosis. ??The epidermis is of normal thickness. ??There are foci of spongiosis with exocytosis of ? lymphomononuclear cells. ??T he interface is generally intact. ??The underlying ? dermis has a sparse to moder ately dense superficial perivascular infiltrate. ? The inflammatory infiltrate consists of a moderate number of eosinophils in ? addition to lymphomononuclea r cells. ??Some of the vessels are slightly dilated ?? and congested and there is m ild dermal edema. ??Additional, deeper sections show similar features. ??(Dr. Tia virk)/mpl ? Document reviewed and electr onically signed by: ? Georgette Hester MD ? Report ??Date: 12/06/2009 14 :55 ? By the signature above, the attending physician certifies that he/she has ? personally conducted a gross and/or microscopic examination of the described ? specimens and rendered or co nfirmed the above diagnosis. ? Specimen(s) Received: ? 3.0 mm bx from neck ? Clinical History: ? Rash ??maculopapular, itchy scalp, neck, upper torso; no new shampoo, soap, etc ? Gross Description: ? Received in formalin labelled Tatyana, Javier and neck biopsy is a 0.3 cm in diameter by 0.2 cm in thi ckness punch biopsy of white, hairbearing skin. ??The specimen is submitted intact in one cassette. ??(Matthew Kelly)/miguel am ? End of Report ? Specimen Performing Organization Address City/State/ZIP Code Phon e Number [facility] [address] [place] [address] SERVICES [facility] [address] [place] [address] documented in this encounter Visit Diagnoses Not on filedocumented in this encounter
--- OUTSIDE RECORDS SUMMARY | 2022-07-27 00:23 | XMS_ITS | Clinical Summary ---
:1940 Author Organization [facility] Address [address] [place] [address] Care Team Providers Name Role Phone Unknown, Provider Primary Care Provider Social History Tobacco Use Types Packs/Day Years Used Date Never Assessed Sex Assigned at Date Recorded Not on file Plan of Treatment Health Maintenance Due Date Last Done Comments Fall Risk Screening 2006 Care Teams Set Up [employer]ic [employer] Relationship Specialty Start Date End Date Unknown, Provider, PCP - General 12/06/09
--- NOTE | 2022-07-27 06:30 | DI.MRI_ITS ---
Exam(s) MR LUMBAR SPINE WO EXAM: MR LUMBAR SPINE WO CLINICAL HISTORY: spinal stenosis, failed PT and injections M48.062 SPINAL STENOSIS M51.16. TECHNIQUE: Multiplanar multisequence MRI of the Lumbar spine was performed. COMPARISON: MR MR LUMBAR SPINE WO from 06/06/2021 FINDINGS: Bones: The last intervertebral disc space is designated the L5/S1 level for the numbering purpose of this examination. The vertebral body heights are well maintained. There is a left convex lumbar sco liosis. There is again seen an hemangioma in the L2 vertebral body. Multilevel lumbar spondylosis i s present. Findings include loss of disc signal, endplate degenerative signal changes and endplate o steophytes. Cord: The conus tip ends at the T12 level. It is of normal size and signal intensity. T12-L1: No disc herniations or bulges are present. No central spinal canal or neural foraminal stenos is. L1-2: There is a diffuse disc bulge eccentric to the right. No significant central spinal canal sten osis is seen. Bilateral neural foraminal stenosis is seen. L2-3: There is a mild diffuse disc bulge. This causes mild narrowing of the central spinal canal. B ilateral neural foraminal stenosis is present. No central spinal canal or neural foraminal stenosis. L3-4: There is again seen a right paracentral extruded disc causing right lateral recess stenosis wit h compression of the L4 nerve root. This in addition to the degenerative disc disease and diffuse di sc bulge causes moderately severe central spinal canal stenosis. There is moderate bilateral neural foraminal stenosis. L4-5: There is a diffuse disc bulge. Hypertrophic changes of the facets are seen. There is mild j luis rowing of the central spinal canal. There is moderate bilateral neural foraminal stenosis. L5-S1: Mild diffuse disc bulge. There are mild degenerative changes of the facets. No significant c entral spinal canal stenosis is seen. Moderate to severe left neural foraminal stenosis is present. No significant right neural foraminal stenosis is seen. Soft tissues: The visualized SI joints and sacrum are well maintained. The paraspinal soft tissues ar e unremarkable. IMPRESSION: 1. Overall stable multilevel degenerative changes in the lumbar spine causing central spinal canal an d neural foraminal stenosis as described above. The findings are most marked at the L3-4 and L4-L5 d isc levels. 2. Lumbar scoliosis. 3. 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 DATA REPOSITORY:
== END ==
PROVIDERS: PCP Family Medicine; Visit Provider Family Medicine
DX: M48.062 Spinal stenosis, lumbar region with neurogenic claudication (principal); M51.16 Intervertebral disc disorders with radiculopathy, lumbar region; M41.9 Scoliosis, unspecified
CPT/HCPCS: 72148

== ENCOUNTER 2023-01-22 01:41 | Outpatient (CLI) | payer MEDICARE, BC, SELFPAY ==
[2023-01-22 12:29] LABS: HCT 38.1 % (36.0-46.0); HGB 12.3 g/dL (11.2-15.7); MCH 30.9 pg (27.0-33.0); MCHC 32.3 % (32.0-36.0); MCV 96 fL (80-95); MPV 11.7 fL (8.0-11.0); Platelet Count 231 10^3/uL (130-400); RBC 3.98 10^6/uL (3.93-5.22); RDW 14.4 % (11.7-14.6); RDW-SD 51.2 fL
[2023-01-22 12:42] LABS: ALT 29 U/L (14-59); AST 18 U/L (15-37); Albumin 4.1 g/dL (3.4-5.0); Alkaline Phosphatase 45 U/L (46-116); Anion Gap 10.2 mmol/L (3-11); BUN 46 mg/dL (7-18); Bilirubin, Total 1.1 mg/dL (0.2-1.0); CO2 25.8 mmol/L (21.0-32.0); CREATININE 1.6 mg/dL (0.55-1.02); Calcium 9.2 mg/dL (8.5-10.1); Chloride 104 mmol/L (98-107); Glucose 136 mg/dL (74-106); Potassium 4.1 mmol/L (3.5-5.1); Sodium 140 mmol/L (136-145); Total Protein 7.1 g/dL (6.4-8.2)
== END 2023-01-22 01:42 | disposition home or self-care (01) ==
LOC: LOS 01:42
PROVIDERS: PCP Family Medicine; Visit Provider Family Medicine
DX: I10 Essential (primary) hypertension (principal); M25.561 Pain in right knee; Z95.2 Presence of prosthetic heart valve
CPT/HCPCS: 36415; 80053; 85027

== ENCOUNTER 2023-06-14 02:19 | Outpatient (RCR) | payer MEDICARE, BC, SELFPAY ==
[2023-06-14] MEDS: ZOLEDRONIC ACID/MANNITOL/WATER 5 MG/100 ML BTL 300 MG IVPB (08:26)
[2023-06-14] MEDS: Normal Saline Flush 10 ML SYR IVP (08:26)
== END 2023-07-13 23:59 | disposition home or self-care (01) ==
LOC: INF 02:19
PROVIDERS: PCP Family Medicine; Visit Provider Family Medicine
DX: M81.0 Age-related osteoporosis without current pathological fracture (principal)
CPT/HCPCS: 96365; J3489

== ENCOUNTER 2024-02-07 01:18 | Outpatient (CLI) | payer MEDICARE, BC, SELFPAY ==
[2024-02-07 10:17] LABS: HCT 34.1 % (36.0-46.0); MCH 30.6 pg (27.0-33.0); MCHC 32.3 % (32.0-36.0); MCV 95 fL (80-95); MPV 10.6 fL (8.0-11.0); Platelet Count 295 10^3/uL (130-400); RDW 13.5 % (11.7-14.6); RDW-SD 46.9 fL; WBC 10.56 10^3/uL (4.4-10.8)
[2024-02-07 10:36] LABS: ALT 40 U/L (14-59); AST 18 U/L (15-37); Albumin 3.7 g/dL (3.4-5.0); Alkaline Phosphatase 55 U/L (46-116); Anion Gap 10.4 mmol/L (3-11); BUN 28 mg/dL (7-18); Bilirubin, Total 0.9 mg/dL (0.2-1.0); CO2 27.6 mmol/L (21.0-32.0); CREATININE 1.6 mg/dL (0.55-1.02); Calcium 9.2 mg/dL (8.5-10.1); Chloride 104 mmol/L (98-107); Glucose 118 mg/dL (74-106); Sodium 142 mmol/L (136-145); Total Protein 7.2 g/dL (6.4-8.2)
== END 2024-02-07 01:19 | disposition home or self-care (01) ==
LOC: LBO 01:18
PROVIDERS: PCP Family Medicine; Visit Provider Family Medicine
DX: D69.9 Hemorrhagic condition, unspecified (principal); I10 Essential (primary) hypertension
CPT/HCPCS: 36415; 80053; 85027

== ENCOUNTER 2025-02-24 03:31 | Outpatient (CLI) | payer MEDICARE, BC, SELFPAY ==
[2025-02-24 12:21] LABS: ALT 22 U/L (14-59); AST 19 U/L (15-37); Albumin 3.4 g/dL (3.4-5.0); Alkaline Phosphatase 61 U/L (46-116); Anion Gap 10.1 mmol/L (3-11); BUN 38 mg/dL (7-18); Bilirubin, Total 0.5 mg/dL (0.2-1.0); CO2 26.9 mmol/L (21.0-32.0); CREATININE 1.6 mg/dL (0.55-1.02); Calcium 9.7 mg/dL (8.5-10.1); Chloride 106 mmol/L (98-107); Glucose 124 mg/dL (74-106); Potassium 4.5 mmol/L (3.5-5.1); Sodium 143 mmol/L (136-145)
== END 2025-02-24 03:32 | disposition home or self-care (01) ==
LOC: LOS 03:31
PROVIDERS: PCP Family Medicine; Visit Provider Family Medicine
DX: I10 Essential (primary) hypertension (principal)
CPT/HCPCS: 36415; 80053

== ENCOUNTER 2025-03-23 14:47 | Outpatient (REF) | payer MEDICARE, BC, SELFPAY ==
[2025-03-23 12:35] LABS: ALT 20 U/L (14-59); AST 13 U/L (15-37); Albumin 3.6 g/dL (3.4-5.0); Alkaline Phosphatase 63 U/L (46-116); Anion Gap 10.6 mmol/L (3-11); BUN 32 mg/dL (7-18); Bilirubin, Total 0.7 mg/dL (0.2-1.0); CO2 27.4 mmol/L (21.0-32.0); CREATININE 1.5 mg/dL (0.55-1.02); Calcium 9.7 mg/dL (8.5-10.1); Chloride 104 mmol/L (98-107); Estimated GFR 34.36 (mL/min/1.73m2); Glucose 126 mg/dL (74-106); Potassium 4.7 mmol/L (3.5-5.1); Sodium 142 mmol/L (136-145); TSH (W/Ref FT4) 1.37 uIU/mL (0.36-3.74); Total Protein 6.8 g/dL (6.4-8.2)
[2025-03-23 12:41] LABS: HCT 23.4 % (36.0-46.0); MCH 24.6 pg (27.0-33.0); MCHC 29.5 % (32.0-36.0); MCV 84 fL (80-95); MPV 10.6 fL (8.0-11.0); Platelet Count 470 10^3/uL (130-400); RDW 16.7 % (11.7-14.6); RDW-SD 50.4 fL; WBC 12.07 10^3/uL (4.4-10.8)
[2025-03-23 13:25] LABS: HGB 6.9 g/dL (11.2-15.7)
[2025-03-23 13:28] LABS: Hemoglobin A1C 6.1 % (<5.7)
== END 2025-03-23 14:48 | disposition home or self-care (01) ==
LOC: LBN 14:47
PROVIDERS: PCP Family Medicine; Visit Provider Family Medicine
DX: E03.9 Hypothyroidism, unspecified (principal); R63.4 Abnormal weight loss; I10 Essential (primary) hypertension; E11.9 Type 2 diabetes mellitus without complications
CPT/HCPCS: 80053; 85027; 83036; 84443

== ENCOUNTER 2025-03-23 15:30 | Inpatient (IN) | payer MEDICARE, BC, SELFPAY ==
[2025-03-23] VITALS (54 sets, daily range): BP systolic 116–149; BP diastolic 54–65; PULSE 70–84; RESP 16–32; TEMP 36.3–36.8; O2SAT 95–100
--- NOTE | 2025-03-23 15:56 | ED.GENADUL_ITS ---
Discharge Plan Disposition Patient Disposition: Admit to [facility] Condition: Stable Discharge Details Clinical Impression: Abdominal mass, right lower quadrant, Anemia Primary Care Provider: Zoey Lucas ED Provider: Sarah Guerrero Home Meds and New Rx's Prescriptions: No Action amlodipine 5 mg tablet 5 mg PO DAILY Qty: 90 3RF escitalopram oxalate [Lexapro] 10 mg tablet 10 mg PO QAM Qty: 90 4RF losartan 50 mg tablet 50 mg PO BID Qty: 180 3RF metoprolol succinate 25 mg tablet extended release 24 hr See Rx Instructions .ROUTE .COMPLEX Qty: 90 4RF Dose Instruction: TAKE ONE TABLET BY MOUTH EVERY DAY Rx Instructions: TAKE ONE TABLET BY MOUTH EVERY DAY hydrochlorothiazide 12.5 mg tablet 12.5 mg PO DAILY Qty: 90 4RF Patient Comments: TAKE ONE TABLET BY MOUTH EVERY DAY tramadol 25 mg tablet See Rx Instructions PO BID PRN (Reason: pain) Qty: 28 4RF Rx Instructions: 1-2 tabs orally twice a day PRN; cholecalciferol (vitamin D3) 1,000 UNIT capsule 2,000 unit PO DAILY calcium carbonate-vitamin D3 [Caltrate with Vitamin D3] 1 EACH tablet 2 ea PO DAILY amoxicillin 500 mg capsule 2,000 mg PO ONCE Qty: 8 3RF prednisone 5 mg tablet 5 mg PO DAILY Qty: 90 2RF prednisone 1 mg tablet See Rx Instructions PO DAILY Qty: 270 2RF Rx Instructions: 1-3 tabs orally daily; tapering dose aspirin 81 mg tablet,delayed release (DR/EC) 81 mg PO HS HPI General Mode of arrival: ambulatory . Date/Time Provider Initiated Documentation: 03/23/25 15:40 . Limitations to Documentation: no limitations . Information obtained by: patient, RN notes reviewed and old records reviewed . HPI Narrative: 84-year-old female presents to the ER with a chief complaint of lightheadedness, approximately 15 pound weight loss over the last 2 to 3 months, lower abdominal pain, diarrhea which has been ongoing intermittently for the last 2 to 3 months and intermittent GI bleed. Patient reports approximately 2 weeks ago she had a bright red bloody stool has not had 1 since. She saw her PCP this morning had some labs drawn and was found to be anemic with a hemoglobin of 6 hematocrit of 23.4. Patient reports that she has been practicing the brat diet at home which seems to have helped the diarrhea some. Denies any chest pain reports some shortness of breath. Denies any problems urinating dysuria denies any fever or chills. She does have a past medical history of an aortic valve replacement, left nephrectomy with chronic kidney disease, hypertension, asthma, history of malignant neoplasm of lung with a left lobectomy in 84, aortic stenosis, giant cell arteritis. Surgical history includes cholecystectomy, nephrectomy lobec viridiana of lung as medical above. Related Data Home Medications ?Medication ?Instructions ?Recorded ?Confirmed calcium 600 mg (as 2 ea PO DAILY 03/13/13 03/23/25 carbonate)-vitamin D3 20 mcg (800 unit) tablet (Caltrate with Vitamin D3) cholecalciferol (vitamin D3) 25 2,000 unit PO DAILY 03/13/13 03/23/25 mcg (1,000 unit) capsule aspirin 81 mg tablet,delayed 81 mg PO HS 07/22/21 03/23/25 release amoxicillin 500 mg capsule 2,000 mg (4 x 500 mg) PO ONCE #8 03/13/24 03/23/25 caps amlodipine 5 mg tablet 5 mg PO DAILY #90 tab-caps 09/14/24 03/23/25 escitalopram oxalate 10 mg tablet 10 mg PO QAM #90 tab-caps 09/14/24 03/23/25 (Lexapro) losartan 50 mg tablet 50 mg PO BID #180 tabs 09/14/24 03/23/25 metoprolol succinate 25 mg See Rx Instructions .Route 09/14/24 03/23/25 tablet,extended release 24 hr .COMPLEX #90 tabs prednisone 5 mg tablet 5 mg PO DAILY #90 tabs 10/15/24 03/23/25 prednisone 1 mg tablet See Rx Instructions PO DAILY PMR 02/22/25 03/23/25 #270 tabs hydrochlorothiazide 12.5 mg tablet 12.5 mg PO DAILY #90 tabs 03/23/25 03/23/25 tramadol 25 mg tablet See Rx Instructions PO BID PRN 03/23/25 03/23/25 pain #28 tabs Previous Rx's ?Medication ?Instructions ?Recorded amoxicillin 500 mg capsule 2,000 mg (4 x 500 mg) PO ONCE #8 03/13/24 caps amlodipine 5 mg tablet 5 mg PO DAILY #90 tab-caps 09/14/24 escitalopram oxalate 10 mg tablet 10 mg PO QAM #90 tab-caps 09/14/24 (Lexapro) losartan 50 mg tablet 50 mg PO BID #180 tabs 09/14/24 metoprolol succinate 25 mg See Rx Instructions .Route 09/14/24 tablet,extended release 24 hr .COMPLEX #90 tabs prednisone 5 mg tablet 5 mg PO DAILY #90 tabs 10/15/24 prednisone 1 mg tablet See Rx Instructions PO DAILY PMR 02/22/25 #270 tabs hydrochlorothiazide 12.5 mg tablet 12.5 mg PO DAILY #90 tabs 03/23/25 tramadol 25 mg tablet See Rx Instructions PO BID PRN 03/23/25 pain #28 tabs Allergies Allergy/AdvReac Type Severity Reaction Status Date / Time doxazosin Allergy Severe RASH Verified 03/23/25 15:36 nickel Allergy Severe SEVERE RASH Verified 03/23/25 15:36 lisinopril Allergy Intermediate HIVES Verified 03/23/25 15:36 Beta-Blockers AdvReac Intermediate WEAKNESS Verified 03/23/25 15:36 (Beta-Adrenergic Bloc General Stated Complaint: GI Bleed KARIME: 3 Review of Systems All systems reviewed & are unremarkable except as noted in HPI and below Constitutional Constitutional: Reports as per HPI, Reports poor appetite and Reports weight loss Gastrointestinal Gastrointestinal: Reports abdominal pain, Reports hematochezia, Reports diarrhea and Reports loose stools Exam Narrative Exam Narrative: Constitutional: Alert and oriented x3. Appears stated age. Normal body habitus. Head: Normocephalic, no trauma. Eyes: Pupils PERRL, Red reflex noted, EOM's intact. Eyelids symmetrical without lesions, discharge, or swelling. ENT: Bilateral TM's WNL, External ear normal to inspection, no mastoid TTP, swelling, or erythema, Nasal turbinates WNL, no nasal discharge. Normal dentition, Posterior pharynx WNL, no exudate. Chest: RRR, Normal S1, S2, distal pulses intact. Resp: Lungs clear to auscultation bilaterally, no wheezes, rales, or rhonchi. Abdomen: Soft, non-distended, Normoactive bowel sounds all 4 quads. Right lower quadrant tenderness with palpation. Does have a vertical midline scar. Musculoskeletal: Normal gait, Moves all 4 extremities without difficulty. Skin: No suspicious rashes or lesions. Capillary refill less than 2 sec. Neurologic: Cranial nerves II-XII intact. Alert and oriented x 3. Motor: No deficits noted. Sensory: Intact bilaterally all 4 extremities. Hematologic/Lymphatic: No ecchymosis, no lymphadenopathy. Course Vital Signs Vital signs: Vital Signs Temperature 36.8 C 03/23/25 15:32 Pulse 84 03/23/25 15:32 Respiratory Rate 18 03/23/25 15:32 Blood Pressure 136/65 03/23/25 15:32 Pulse Oximetry 100 03/23/25 15:32 Temperature 36.8 C 03/23/25 15:32 Temperature Source Oral 03/23/25 15:32 Pulse 84 03/23/25 15:32 Respiratory Rate 18 03/23/25 15:32 Blood Pressure 136/65 03/23/25 15:32 Blood Pressure Position Sitting 03/23/25 15:32 Pulse Oximetry 100 03/23/25 15:32 Oxygen Delivery Method Room Air 03/23/25 15:32 Oxygen Flow Rate 0 03/23/25 15:32 Pain Level 4 03/23/25 15:32 Medical Decision Making 84-year-old female presents to the ER with a chief complaint of lightheadedness, approximately 15 pound weight loss over the last 2 to 3 months, lower abdominal pain, diarrhea which has been ongoing intermittently for the last 2 to 3 months and intermittent GI bleed. Patient reports approximately 2 weeks ago she had a bright red bloody stool has not had 1 since. She saw her PCP this morning had some labs drawn and was found to be anemic with a hemoglobin of 6 hematocrit of 23.4. Patient reports that she has been practicing the brat diet at home which seems to have helped the diarrhea some. Denies any chest pain reports some shortness of breath. Denies any problems urinating dysuria denies any fever or chills. Workup ordered including CBC CMP PT, lipase, type and screen, urinalysis, stool studies CTA abdomen and pelvis. Patient is anemic I do anticipate possible blood transfusion. Rectal fistula, diverticulitis, hemorrhoids, colitis, IBS, malignancy, electrolyte abnormality, GI bleed, anemia Critical lab value received hemoglobin is 6.4. Earlier today was 6.9. Will order 2 units of PRBCs. Spoke with blood bank regarding blood transfusion, I did know in the history that patient has anti-E antigen blood relayed this information to the blood bank they report that there could be a delay in receiving the blood products up to 3 to 5 hours. In light of this information I do anticipate admission of the patient. Pending the results of CT imaging and the remainder of the labs. Contacted by Dr. Knox radiologist regarding patient's CT results he reports a 6 x 6 x 7 cm irregular mass suggestive of neoplasm to the right lower quadrant. See CT result. Discussed CT results with patient and family who verbalized understanding, all their questions were answered to the best my ability. I also did discuss the blood transfusion situation they verbalized understanding. Patient reports she has had blood transfused in [place] in the past and that she did require specific blood. Will contact hospitalist. 175: Contacted Dr. Knox who is on-call for surgery regarding patient he agrees to consult states that he will probably see patient tomorrow. 183: Hospitalist paged. 184: Spoke with Dr. Contreras with hospitalist, he agrees to admit patient and will eval patient in ED. Patient has remained hemodynamically stable throughout the remainder of her stay, blood pressure is 152/51 heart rate 7897% on room air respirations 22. Medical Records Medical records reviewed: Yes I reviewed the patient's medical records. Imaging Data Radiologic Study: Imaging: CT Scan Radiologist's impression: ABDOMEN: Lung bases: Aortic valve stent. Calcification of the mitral annulus is present. Liver: Normal density. There are cysts seen in the liver. No suspicious hepatic masses are present. Portal, Superior Mesenteric, and Splenic Veins: Unremarkable. Gallbladder and Biliary Tract: Status post cholecystectomy. No significant biliary ductal dilatation is present. Pancreas: Normal density, no abnormal calcifications or inflammatory process. Spleen: Normal. Adrenals: No masses seen. Kidneys: The left kidney is absent. There are few tiny hypodensities seen on the right kidney. They are too small for further characterization but likely reflect small cysts. No follow-up is recommended. Parapelvic cysts are present. No hydronephrosis. No radiodense stones or obstructive uropathy. No suspicious masses are present. Bowel: There is diverticulosis seen in the colon without evidence of acute diverticulitis. There is a thick-walled mass in the base of the cecum. It measures 6.2 transverse by 6.2 AP by 7.1 craniocaudad. The findings are most suggestive of a neoplasm. There is no evidence of obstruction. No other areas of bowel wall thickening are seen. The stomach is incompletely distended limiting evaluation. A normal appendix is present. Peritoneal Cavity: No ascites, collection or mesenteric inflammatory response. No free air. Lymph Nodes: Within normal limits. Bones: Within normal limits for the patient's age. No aggressive osseous lesions are present. There is a left convex lumbar scoliosis. Soft Tissues: Unremarkable. PELVIS: Bladder: Symmetric distention, no gross wall thickening. Reproductive Organs: There is a calcified uterine fibroid present. Lymph Nodes: Within normal limits. Bones: Within normal limits. IMPRESSION: 1. 6.2 x 6.2 x 7.1 cm irregular wall thickening in the base of the cecum most suggestive of a neoplasm. There is no evidence of obstruction. 2. No evidence of metastatic disease. 3. Colonic diverticulosis without evidence of acute diverticulitis. 4. Findings were discussed with the Sarah Guerrero at 5:10 p.m. on 03/23/2025. Lab Data Lab results reviewed: Yes I reviewed the patient's lab results. Labs: Laboratory Tests Range/Units 03/23/25 16:15 WBC (4.4-10.8) 10^3/uL 10.96 H RBC (3.93-5.22) 10^6/uL 2.61 L Hgb (11.2-15.7) g/dL 6.4 L* Hct (36.0-46.0) % 21.7 L MCV (80-95) fL 83 MCH (27.0-33.0) pg 24.5 L MCHC (32.0-36.0) % 29.5 L RDW (11.7-14.6) % 16.6 H Plt Count (130-400) 10^3/uL 421 H MPV (8.0-11.0) fL 9.5 Immature Gran % % 0.6 Neutrophils % % 80.2 Lymphocytes % % 9.7 Monocytes % % 8.7 Eosinophils % % 0.3 Basophils % % 0.5 Nucleated RBC % (0.0-0.3) % 0.0 Absolute Neutrophils (1.2-6.7) 10^3/uL 8.79 H Absolute Lymphocytes (1.2-3.4) 10^3/uL 1.06 L Absolute Monocytes (0.1-0.8) 10^3/uL 0.95 H Absolute Eosinophils (0.0-0.7) 10^3/uL 0.03 Absolute Basophils (0.0-0.2) 10^3/uL 0.05 RBC Morphology See Below Hypochromasia 2+ Poikilocytosis 1+ PT (9.1-11.1) sec 12.5 H INR (0.9-1.1) 1.3 H Sodium (136-145) mmol/L 140 Potassium (3.5-5.1) mmol/L 4.2 Chloride (98-107) mmol/L 103 Carbon Dioxide (21.0-32.0) mmol/L 26.6 Anion Gap (3-11) mmol/L 10.4 BUN (7-18) mg/dL 36 H Creatinine (0.55-1.02) mg/dL 1.7 H Est GFR (CKD-EPI 2020) (mL/min/1.73m2) 29.57 Glucose (74-106) mg/dL 116 H Calcium (8.5-10.1) mg/dL 9.1 Magnesium (1.8-2.4) mg/dL 2.1 Total Bilirubin (0.2-1.0) mg/dL 0.5 AST (15-37) U/L 12 L ALT (14-59) U/L 21 Alkaline Phosphatase (46-116) U/L 57 Total Protein (6.4-8.2) g/dL 6.6 Albumin (3.4-5.0) g/dL 3.2 L Lipase (<78) U/L 26 Quality:SDOH Health Related Social Needs: No Data to Display PFSH All Active Problems (Updated 03/23/25 @ 18:51 by Sarah Guerrero NP) Anemia (Chronic) Abdominal mass, right lower quadrant (Acute) Weight loss, abnormal (Acute) Thyroid goiter (Acute) Facial lesion (Acute) Weight loss (Acute) Diarrhea (Acute) Vitamin D deficiency (Chronic 01/19/09) Hyperlipidemia (Chronic) Giant cell arteritis (Chronic 10/27/15) Essential hypertension (Chronic 10/19/13) Chronic obstructive lung disease (Chronic 03/31/07) PFT's showing decreased FEV1 Asthma (Acute) Osteoporosis (Chronic) Physician orders for life-sustaining treatment (POLST) form indicates patient wish for [id number] status (Acute) per conversation 01/21/2020. See visit note Knee pain, right (Acute) S/P TAVR (transcatheter aortic valve replacement) (Acute) [facility] [place], Incompatible blood transfusion (Acute) Anti E antigen - need to order special blood for transfusions Sciatica of left side due to displacement of lumbar intervertebral disc (Acute) Lumbar stenosis with neurogenic claudication (Acute) Bruising (Acute) Medical History Pre-op testing Hip pain, right E. coli UTI Sepsis due to Escherichia coli Elevated troponin Hypokalemia Acute kidney injury superimposed on chronic kidney disease Shortness of breath Discharge planning issues DVT prophylaxis Acute UTI Sepsis Lumbar stenosis with neurogenic claudication MRI 06/06/21 - L3-4 herniation with severe stenosis Leg wound, left Back pain Aortic stenosis Ganglion of tendon sheath (01/11/05) History of unilateral nephrectomy Impacted cerumen Primary malignant neoplasm of lung (09/12/83) Swelling of left lower extremity (02/17/15) H/O unilateral nephrectomy left; congenital deformity Impacted cerumen Asthma 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; 1983 Lobectomy; 03/20 Neg CXR & Barium swallow Ganglion of tendon sheath 01/11/05 Ganglion cyst of R foot Left leg swelling 02/17/15 Neck mass see US 11/01 Anxiety (08/30/15) Cataract (11/19/16) Chronic cough Insomnia (10/08/17) Mass of right side of neck (02/28/16) Right hip pain (09/06/15) Skin lesion of face (08/30/15) 4mm by 2mm left upper lip Surgical History Status post cholecystectomy Status post lobectomy of lung S/P cholecystectomy S/P lobectomy of lung 10/14/83 left upper lobectomy; 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 Lobectomy (~1983) left upper lobectomy; carcinoid tumor left lung Cholecystectomy (~1979) Extraction of cataract 12/05/16-[facility] [place] Family History Mother , 56 Melanoma Father , 73 Stroke Sister Essential hypertension Intestines cancer lower intestine Brother Essential hypertension Hyperlipidemia Hypertension Brother Essential hypertension Heart disease BYPASS Hyperlipidemia Maternal Grandfather Stroke Paternal Grandfather Cancer Maternal Grandmother Kidney malignancy Paternal Grandmother Cancer Son Essential hypertension Hyperlipidemia Son No problems noted. Daughter No problems noted. Social History Smoking/Tobacco Use Status: Former Tobacco Use Quit Date: 10/14/83 Tobacco: How many years used: 15 Quit status: quit date established Second Hand Exposure: Yes Smoking risk assessment performed?: Yes Alcohol Intake: current Alcohol Intake frequency: holidays/special occasions only Alcohol type: wine Drug use: Never Substance use type: does not use Adopted: No Caregiver/Support person: No Foster care: No Household members: other Details: grandson Housing: house Number of Children: 3 number of grandchildren: 4 Communication Needs: None Do you need help understanding health information?: Rarely Pets and animals: No Sexually active: No Do you think of yourself as: straight/heterosexual Current gender identity: female What is your relationship status?: How often do you talk on the phone with friends or family?: three or more times per week How often do you get together with friends or relatives?: three or more times per week How often do you attend tenriism or christian services?: 4 or more times per year Do you belong to any clubs or organized social groups?: yes Panel score (0-1 are the most socially isolated patients): 3 What type of physical activity do you participate in: walking Duration: 15-30 minutes/day Frequency: daily [place]/Latter Day: Voodoo Special [place] needs: No Agree to transfusion: Yes Seatbelt use: always Drive intox or ride w/intox local 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
[2025-03-23 16:23] LABS: Abs Immature Grans 0.07 10^3/uL (0.0-0.06); Absolute Eosinophil Count 0.03 10^3/uL (0.0-0.7); Absolute Lymphocyte Count 1.06 10^3/uL (1.2-3.4); Absolute Monocyte Count 0.95 10^3/uL (0.1-0.8); Absolute Neutrophil Count 8.79 10^3/uL (1.2-6.7); Basophils % 0.5 %; Eosinophils % 0.3 %; HCT 21.7 % (36.0-46.0); Immature Grans % 0.6 %; Lymphocytes % 9.7 %; MCH 24.5 pg (27.0-33.0); MCHC 29.5 % (32.0-36.0); MCV 83 fL (80-95); MPV 9.5 fL (8.0-11.0); Monocytes % 8.7 %; Neutrophils % 80.2 %; Platelet Count 421 10^3/uL (130-400); RBC 2.61 10^6/uL (3.93-5.22); RDW 16.6 % (11.7-14.6); RDW-SD 50.2 fL; WBC 10.96 10^3/uL (4.4-10.8)
[2025-03-23 16:27] LABS: Absolute Basophil Count 0.05 10^3/uL (0.0-0.2); HGB 6.4 g/dL (11.2-15.7)
[2025-03-23] MEDS: Normal Saline - Diluent 50 ML VIAL IJ (16:31)
[2025-03-23 16:35] LABS: INR 1.3 (0.9-1.1); Prothrombin Time 12.5 sec (9.1-11.1)
[2025-03-23] MEDS: Omnipaque 350 MG/ML 100 ML BTL IJ (16:37)
[2025-03-23 16:40] LABS: ALT 21 U/L (14-59); AST 12 U/L (15-37); Albumin 3.2 g/dL (3.4-5.0); Alkaline Phosphatase 57 U/L (46-116); Anion Gap 10.4 mmol/L (3-11); BUN 36 mg/dL (7-18); Bilirubin, Total 0.5 mg/dL (0.2-1.0); CO2 26.6 mmol/L (21.0-32.0); CREATININE 1.7 mg/dL (0.55-1.02); Calcium 9.1 mg/dL (8.5-10.1); Chloride 103 mmol/L (98-107); Estimated GFR 29.57 (mL/min/1.73m2); Glucose 116 mg/dL (74-106); Lipase 26 U/L (<78); Magnesium 2.1 mg/dL (1.8-2.4); Potassium 4.2 mmol/L (3.5-5.1); Sodium 140 mmol/L (136-145); Total Protein 6.6 g/dL (6.4-8.2)
--- NOTE | 2025-03-23 16:40 | DI.CT_ITS ---
Exam(s) CT ABDOMEN PELVIS CTA EXAM: CT ABDOMEN PELVIS CTA CLINICAL HISTORY: GI bleed, anemia, RLQ abd pain. TECHNIQUE: Imaging Protocol: Axial CT angiography was performed with multi-slice acquisition and m ulti-planar and/or 3D reconstructions. CONTRAST MATERIAL: Intravenous: Omnipaque 350 Contrast volume:100mL Oral: No COMPARISON: No exams were available for comparison FINDINGS: ABDOMEN AND PELVIS: Abdomen: Celiac axis/mesenteric arteries: No evidence of occlusion or significant stenosis. Renal Arteries: No evidence of occlusion or significant stenosis. Atherosclerotic calcification is se en in the proximal right renal artery. Aorta: No evidence of occlusion or significant stenosis. No aneurysm or dissection. Atherosclerotic calcification is present. Pelvis: Iliac Arteries: No evidence of occlusion or significant stenosis. Common Femoral Arteries: No evidence of occlusion or significant stenosis. ABDOMEN: Lung bases: Aortic valve stent. Calcification of the mitral annulus is present. Liver: Normal density. There are cysts seen in the liver. No suspicious hepatic masses are present. Portal, Superior Mesenteric, and Splenic Veins: Unremarkable. Gallbladder and Biliary Tract: Status post cholecystectomy. No significant biliary ductal dilatation is present. Pancreas: Normal density, no abnormal calcifications or inflammatory process. Spleen: Normal. Adrenals: No masses seen. Kidneys: The left kidney is absent. There are few tiny hypodensities seen on the right kidney. They are too small for further characterization but likely reflect small cysts. No follow-up is recommen ded. Parapelvic cysts are present. No hydronephrosis. No radiodense stones or obstructive uropathy . No suspicious masses are present. Bowel: There is diverticulosis seen in the colon without evidence of acute diverticulitis. There is a thick-walled mass in the base of the cecum. It measures 6.2 transverse by 6.2 AP by 7.1 craniocaud ad. The findings are most suggestive of a neoplasm. There is no evidence of obstruction. No other areas of bowel wall thickening are seen. The stomach is incompletely distended limiting evaluation. A normal appendix is present. Peritoneal Cavity: No ascites, collection or mesenteric inflammatory response. No free air. Lymph Nodes: Within normal limits. Bones: Within normal limits for the patient's age. No aggressive osseous lesions are present. There is a left convex lumbar scoliosis. Soft Tissues: Unremarkable. PELVIS: Bladder: Symmetric distention, no gross wall thickening. Reproductive Organs: There is a calcified uterine fibroid present. Lymph Nodes: Within normal limits. Bones: Within normal limits. IMPRESSION: 1. 6.2 x 6.2 x 7.1 cm irregular wall thickening in the base of the cecum most suggestive of a neoplas m. There is no evidence of obstruction. 2. No evidence of metastatic disease. 3. Colonic diverticulosis without evidence of acute diverticulitis. 4. Findings were discussed with the Sarah Guerrero at 5:10 p.m. on 03/23/2025. RADIATION DOSE DELIVERED: Total DLP DATA REPOSITORY: All CT scans at this facility are submitted to the National Radiology Data Registry (NRDR) Dose Index Registry (DIR) with the [employer] (ACR). RADIATION OPTIMIZATION: All CT scans at this facility use at least one of these dose optimization te chniques: automated exposure control; mA and/or kV adjustment per patient size (includes targeted exa ms where dose is matched to clinical indication); or iterative reconstruction.
[2025-03-23 16:59] LABS: Diff Comment RBC Morph Reviewed; Hypochromasia 2+
[2025-03-23 17:00] LABS: Poikilocytes 1+
[2025-03-23] MEDS: Normal Saline 1,000 ML 150 ML IV (18:00)
--- NOTE | 2025-03-23 19:16 | W.PM.HP.N ---
Date of service: 03/23/25 Time of Service: 19:16 Assessment and Plan Assessment and plan (1) Diarrhea: Status: Acute Assessment and plan: Most likely secondary to mass at the cecum. Per my discussion with ED provider that Dr. Knox is aware and will see the patient in the a.m. (2) Abdominal mass, right lower quadrant: Status: Acute Assessment and plan: As above (3) Anemia: Status: Chronic Assessment and plan: Type and cross and give 2 units of packed red blood cells. Patient does have compatibility issue so the blood will be need to be brought fro (4) Giant cell arteritis: Status: Chronic Assessment and plan: Patient does take daily prednisone 7 mg and continue with this (5) Incompatible blood transfusion: Status: Acute Assessment and plan: As above (6) Essential hypertension: Status: Chronic Assessment and plan: Restart home meds including beta-juan ARB diuretic (7) S/P TAVR (transcatheter aortic valve replacement): Status: Acute Assessment and plan: Noted. Patient does not take anything besides aspirin as this is a biologic valve In regards to DVT prophylaxis considering the patient's ongoing or at least recent anemia need for transfusional denies CDs only. History of Present Illness History of Present Illness Chief Complaint: GIB Narrative: This is an 84-year-old lady who presents to her PCP with complaints of diarrhea. While she was being worked up there was noted that she had significant anemia and recommendation was made to come to the ED. While she was here in the ED repeat labs did indicate a hemoglobin of approximately 6.4 and patient was ultimately admitted to the hospitalist service for further evaluation and treatment. Report is reviewed from the ED she does have an issue with compatibility for her transfusions and will need blood from a tertiary care center. My discussion with the patient she states that she has had 2 weeks of worsening diarrhea as well as weight loss and some night sweats as well. Patient states she has never had a colonoscopy. Patient denies any other surgeries on her stomach besides a remote history of cholecystectomy. In reviewing her labs her white count is 10.96 H&H of 6.4 and 21.7 respectively MCV at 83 platelet count of 421 and an INR of 1.3. Her BUN to creatinine ratio is 36/1.7 consistent GI bleed versus dehydration. In terms of imaging CT angiogram was done which showed a 6.2 x 6.2 x 7.1 cm irregular wall thickening in the bases of the cecum suggestive of a neoplasm. No evidence of metastatic disease. Diverticulosis without diverticulitis. patient further reveals that as a child she had a nephrectomy and in her 40s she did have a left lower lobe lobectomy secondary to a precancerous lesion. Patient also has a history of temporal arteritis as well as polymyalgia rheumatica for which she takes daily steroids. Patient also has a history of TAVR which her bleed was in 2021 [facility] All Active Problems (Updated 03/23/25 @ 18:51 by Sarah Guerrero, MONCHO) Anemia (Chronic) Abdominal mass, right lower quadrant (Acute) Weight loss, abnormal (Acute) Thyroid goiter (Acute) Facial lesion (Acute) Weight loss (Acute) Diarrhea (Acute) Vitamin D deficiency (Chronic 01/19/09) Hyperlipidemia (Chronic) Giant cell arteritis (Chronic 10/27/15) Essential hypertension (Chronic 10/19/13) Chronic obstructive lung disease (Chronic 03/31/07) PFT's showing decreased FEV1 Asthma (Acute) Osteoporosis (Chronic) Physician orders for life-sustaining treatment (POLST) form indicates patient wish for [id number] status (Acute) per conversation 01/21/2020. See visit note Knee pain, right (Acute) S/P TAVR (transcatheter aortic valve replacement) (Acute) [facility], Incompatible blood transfusion (Acute) Anti E antigen - need to order special blood for transfusions Sciatica of left side due to displacement of lumbar intervertebral disc (Acute) Lumbar stenosis with neurogenic claudication (Acute) Bruising (Acute) Medical History Pre-op testing Hip pain, right E. coli UTI Sepsis due to Escherichia coli Elevated troponin Hypokalemia Acute kidney injury superimposed on chronic kidney disease Shortness of breath Discharge planning issues DVT prophylaxis Acute UTI Sepsis Lumbar stenosis with neurogenic claudication MRI 06/06/21 - L3-4 herniation with severe stenosis Leg wound, left Back pain Aortic stenosis Ganglion of tendon sheath (01/11/05) History of unilateral nephrectomy Impacted cerumen Primary malignant neoplasm of lung (09/12/83) Swelling of left lower extremity (02/17/15) H/O unilateral nephrectomy left; congenital deformity Impacted cerumen Asthma 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; 1983 Lobectomy; 03/20 Neg CXR & Barium swallow Ganglion of tendon sheath 01/11/05 Ganglion cyst of R foot Left leg swelling 02/17/15 Neck mass see US 11/01 Anxiety (08/30/15) Cataract (11/19/16) Chronic cough Insomnia (10/08/17) Mass of right side of neck (02/28/16) Right hip pain (09/06/15) Skin lesion of face (08/30/15) 4mm by 2mm left upper lip Surgical History Status post cholecystectomy Status post lobectomy of lung S/P cholecystectomy S/P lobectomy of lung 10/14/83 left upper lobectomy; 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 Lobectomy (~1983) left upper lobectomy; carcinoid tumor left lung Cholecystectomy (~1979) Extraction of cataract [place]05[place] [place] Family History Mother , 56 Melanoma Father , 73 Stroke Sister Essential hypertension Intestines cancer lower intestine Brother Essential hypertension Hyperlipidemia Hypertension Brother Essential hypertension Heart disease BYPASS Hyperlipidemia Maternal Grandfather Stroke Paternal Grandfather Cancer Maternal Grandmother Kidney malignancy Paternal Grandmother Cancer Son Essential hypertension Hyperlipidemia Son No problems noted. Daughter No problems noted. Social History Smoking/Tobacco Use Status: Former Tobacco Use Quit Date: 10/14/83 Tobacco: How many years used: 15 Quit status: quit date established Second Hand Exposure: Yes Smoking risk assessment performed?: Yes Alcohol Intake: current Alcohol Intake frequency: holidays/special occasions only Alcohol type: wine Drug use: Never Substance use type: does not use Adopted: No Caregiver/Support person: No Foster care: No Household members: other Details: grandson Housing: house Number of Children: 3 number of grandchildren: 4 Communication Needs: None Do you need help understanding health information?: Rarely Pets and animals: No Sexually active: No Do you think of yourself as: straight/heterosexual Current gender identity: female What is your relationship status?: How often do you talk on the phone with friends or family?: three or more times per week How often do you get together with friends or relatives?: three or more times per week How often do you attend christian or judaism services?: 4 or more times per year Do you belong to any clubs or organized social groups?: yes Panel score (0-1 are the most socially isolated patients): 3 What type of physical activity do you participate in: walking Duration: 15-30 minutes/day Frequency: daily [place]/Yarsani: Zoroastrian Special [place] needs: No Agree to transfusion: Yes Seatbelt use: always Drive intox or ride w/intox ambulette driver: No Working smoke detector in home: Yes Carbon monox detector in home: Yes Firearms in home: Yes Firearms unloaded and locked: Yes Do you feel safe at home: Yes Do you feel safe in your relationship?: Yes Victim of physical abuse: No Victim of emotional abuse: No Victim of sexual abuse: No Would you like helpful sources: No Meds Allergies and Home Medications Allergies Allergy/AdvReac Type Severity Reaction Status Date / Time doxazosin Allergy Severe RASH Verified 03/23/25 15:36 nickel Allergy Severe SEVERE RASH Verified 03/23/25 15:36 lisinopril Allergy Intermediate HIVES Verified 03/23/25 15:36 Beta-Blockers AdvReac Intermediate WEAKNESS Verified 03/23/25 15:36 (Beta-Adrenergic Bloc Home Medications ?Medication ?Instructions ?Recorded ?Confirmed ?Type calcium 600 mg (as 2 ea PO DAILY 03/13/13 03/23/25 History carbonate)-vitamin D3 20 mcg (800 unit) tablet (Caltrate with Vitamin D3) cholecalciferol (vitamin D3) 25 2,000 unit PO DAILY 03/13/13 03/23/25 History mcg (1,000 unit) capsule aspirin 81 mg tablet,delayed 81 mg PO HS 07/22/21 03/23/25 History release amoxicillin 500 mg capsule 2,000 mg (4 x 500 mg) PO ONCE #8 03/13/24 03/23/25 Rx caps amlodipine 5 mg tablet 5 mg PO DAILY #90 tab-caps 09/14/24 03/23/25 Rx escitalopram oxalate 10 mg tablet 10 mg PO QAM #90 tab-caps 09/14/24 03/23/25 Rx (Lexapro) losartan 50 mg tablet 50 mg PO BID #180 tabs 09/14/24 03/23/25 Rx metoprolol succinate 25 mg See Rx Instructions .Route 09/14/24 03/23/25 Rx tablet,extended release 24 hr .COMPLEX #90 tabs prednisone 5 mg tablet 5 mg PO DAILY #90 tabs 10/15/24 03/23/25 Rx prednisone 1 mg tablet See Rx Instructions PO DAILY PMR 02/22/25 03/23/25 Rx #270 tabs hydrochlorothiazide 12.5 mg tablet 12.5 mg PO DAILY #90 tabs 03/23/25 03/23/25 Rx tramadol 25 mg tablet See Rx Instructions PO BID PRN 03/23/25 03/23/25 Rx pain #28 tabs Exam Narrative Exam Narrative: HEENT-normocephalic atraumatic mucous membranes moist oropharynx is clear extraocular motions are intact Neck-no lymphadenopathy no JVD no thyroid megaly Cardiovascular-regular rate and rhythm normal distance 3 out of 6 systolic ejection murmur Pulm-clear to auscultation bilaterally good air exchange no accessory muscle use Abdomen-soft nontender nondistended bowel sounds active x 4 Extremities-no cyanosis clubbing or edema bilaterally Neurologic-cranial nerves II through XII are intact as tested reflexes in upper extremity normal as tested Psych-alert and oriented x 3 can give a linear history Results Labs 03/23/25 16:15 03/23/25 16:15 Labs: Laboratory Results - last 24 hr 03/23/25 03/23/25 10:00 16:15 WBC 10.96 H RBC 2.61 L Hgb 6.4 L* Hct 21.7 L MCV 83 MCH 24.5 L MCHC 29.5 L RDW 16.6 H Plt Count 421 H MPV 9.5 Immature Gran % 0.6 Neutrophils % 80.2 Lymphocytes % 9.7 Monocytes % 8.7 Eosinophils % 0.3 Basophils % 0.5 Nucleated RBC % 0.0 Absolute Neutrophils 8.79 H Absolute Lymphocytes 1.06 L Absolute Monocytes 0.95 H Absolute Eosinophils 0.03 Absolute Basophils 0.05 RBC Morphology See Below Hypochromasia 2+ Poikilocytosis 1+ PT 12.5 H INR 1.3 H Sodium 140 Potassium 4.2 Chloride 103 Carbon Dioxide 26.6 Anion Gap 10.4 BUN 36 H Creatinine 1.7 H Est GFR (CKD-EPI 2020) 29.57 Glucose 116 H Calcium 9.1 Magnesium 2.1 Total Bilirubin 0.5 AST 12 L ALT 21 Alkaline Phosphatase 57 Total Protein 6.6 Albumin 3.2 L Lipase 26 ABO/Rh O Positive Blood Type Recheck O Positive Antibody Screen POSITIVE Crossmatch See Detail Last Vital Signs Temp 36.8 C 03/23/25 15:32 Pulse 76 03/23/25 17:32 Resp 16 03/23/25 17:32 BP 131/54 L 03/23/25 17:32 Pulse Ox 96 03/23/25 17:32 Time Spent Time spent with Patient: 40-54 minutes Time was spent: preparing to see the patient(eg.review tests), obtaining and/or reviewing separately otained hiistory, ordering medications,tests, procedures, referring, communicating with other health career developer, indepentently interpreting results, counseling the patient and care coordination
[2025-03-23 20:25] LABS: Bilirubin Negative (Negative); Blood Negative (Negative); Clarity Clear (Clear); Glucose Negative (Negative); Ketones Negative (Negative); Leukocyte Esterase Negative (Negative); Nitrite Negative (Negative); Urobilinogen 0.2 mg/dL (Up to 0.2); pH 5.5 (5-8)
--- NOTE | 2025-03-23 20:28 | W.PC.ACHO ---
Registration Status: Primary Language: Preferred Language: ED Information & Data Chief Complaint GI Bleed 03/23/25 15:58 Triage Note pt sent from office for 03/23/25 15:32 hgb 6.9 pt has had diarrhea for 2 months with black stools pt taking iron Medical / Surgical History (Last Reviewed 03/23/25 @ 16:03 by Sarah Guerrero NP) Pre-op testing Hip pain, right E. coli UTI Sepsis due to Escherichia coli Elevated troponin Hypokalemia Acute kidney injury superimposed on chronic kidney disease Shortness of breath Discharge planning issues DVT prophylaxis Acute UTI Sepsis Lumbar stenosis with neurogenic claudication Leg wound, left Back pain Aortic stenosis Ganglion of tendon sheath (01/11/05) History of unilateral nephrectomy Impacted cerumen Primary malignant neoplasm of lung (09/12/83) Swelling of left lower extremity (02/17/15) H/O unilateral nephrectomy Impacted cerumen Asthma Primary malignant neoplasm of lung Ganglion of tendon sheath Left leg swelling Neck mass Anxiety (08/30/15) Cataract (11/19/16) Chronic cough Insomnia (10/08/17) Mass of right side of neck (02/28/16) Right hip pain (09/06/15) Skin lesion of face (08/30/15) (Last Reviewed 03/23/25 @ 16:03 by Sarah Guerrero NP) Status post cholecystectomy Status post lobectomy of lung S/P cholecystectomy S/P lobectomy of lung Nephrectomy Lobectomy (~1983) Cholecystectomy (~1979) Extraction of cataract Most Recent Vital Signs Temperature 36.8 C 03/23/25 15:32 Temperature Source Oral 03/23/25 15:32 Pulse 76 03/23/25 17:32 Respiratory Rate 16 03/23/25 17:32 Blood Pressure 131/54 L 03/23/25 17:32 Blood Pressure Mean 79 03/23/25 17:32 Blood Pressure Position Sitting 03/23/25 15:32 Pulse Oximetry 96 03/23/25 17:32 Oxygen Delivery Method Room Air 03/23/25 17:32 Oxygen Flow Rate 0 03/23/25 17:32 Pain Level 4 03/23/25 15:32 Allergies doxazosin Allergy (Severe, Verified 03/23/25 15:36) RASH nickel Allergy (Severe, Verified 03/23/25 15:36) SEVERE RASH lisinopril Allergy (Intermediate, Verified 03/23/25 15:36) HIVES Beta-Blockers (Beta-Adrenergic Bloc Adverse Reaction (Intermediate, Verified 03/23/25 15:36) WEAKNESS Active Medications Generic Name Dose Route Start Last Admin Trade Name Melinda PRN Reason Stop Dose Admin Sodium Chloride 1,000 mls @ 150 mls/hr 03/23/25 16:46 03/23/25 18:00 Saline 1000ml Bag IV 03/23/25 23:25 150 mls/hr INFUSION STA Administration Iohexol 100 ml 03/23/25 16:45 03/23/25 16:37 Omnipaque 350 Mg/Ml 100 Ml Btl IJ 04/22/25 23:59 100 ml DIRECTED ZHENG Administration Sodium Chloride 50 ml 03/23/25 16:45 03/23/25 16:31 Normal Saline - Diluent 50 Ml Vial IJ 50 ml .FOR DI USE ZHENG Administration IV IV Catheter Type [Right Saline Lock Antecubital] IV Catheter Gauge [Right 20 Antecubital] Diet Orders Category Date Time Status Nothing Per Oral [DIET] Nutrition 03/23/25 Dinner Active Diagnostics 03/23/25 03/23/25 03/23/25 Range/Units 20:17 16:15 10:00 WBC 10.96 H (4.4-10.8) 10^3/uL RBC 2.61 L (3.93-5.22) 10^6/uL Hgb 6.4 L* (11.2-15.7) g/dL Hct 21.7 L (36.0-46.0) % MCV 83 (80-95) fL MCH 24.5 L (27.0-33.0) pg MCHC 29.5 L (32.0-36.0) % RDW 16.6 H (11.7-14.6) % Plt Count 421 H (130-400) 10^3/uL MPV 9.5 (8.0-11.0) fL Immature Gran % 0.6 % Neutrophils % 80.2 % Lymphocytes % 9.7 % Monocytes % 8.7 % Eosinophils % 0.3 % Basophils % 0.5 % Nucleated RBC % 0.0 (0.0-0.3) % Absolute Neutrophils 8.79 H (1.2-6.7) 10^3/uL Absolute Lymphocytes 1.06 L (1.2-3.4) 10^3/uL Absolute Monocytes 0.95 H (0.1-0.8) 10^3/uL Absolute Eosinophils 0.03 (0.0-0.7) 10^3/uL Absolute Basophils 0.05 (0.0-0.2) 10^3/uL RBC Morphology See Below Hypochromasia 2+ Poikilocytosis 1+ PT 12.5 H (9.1-11.1) sec INR 1.3 H (0.9-1.1) Sodium 140 (136-145) mmol/L Potassium 4.2 (3.5-5.1) mmol/L Chloride 103 (98-107) mmol/L Carbon Dioxide 26.6 (21.0-32.0) mmol/L Anion Gap 10.4 (3-11) mmol/L BUN 36 H (7-18) mg/dL Creatinine 1.7 H (0.55-1.02) mg/dL Est GFR (CKD-EPI 2020) 29.57 (mL/min/1.73m2) Glucose 116 H (74-106) mg/dL Calcium 9.1 (8.5-10.1) mg/dL Magnesium 2.1 (1.8-2.4) mg/dL Total Bilirubin 0.5 (0.2-1.0) mg/dL AST 12 L (15-37) U/L ALT 21 (14-59) U/L Alkaline Phosphatase 57 (46-116) U/L Total Protein 6.6 (6.4-8.2) g/dL Albumin 3.2 L (3.4-5.0) g/dL Lipase 26 (<78) U/L Urine Color Pending Urine Clarity Pending Urine pH Pending Ur Specific Joseph Pending Urine Protein Pending Urine Ketones Pending Urine Blood Pending Urine Nitrite Pending Urine Bilirubin Pending Urine Urobilinogen Pending Ur Leukocyte Esterase Pending Urine Glucose Pending ABO/Rh O Positive Blood Type Recheck O Positive Antibody Screen POSITIVE Antibody Identification Anti-E Crossmatch See Detail Intake and Output - 24 Hour Total 03/23/25 15:30 thru 03/23/25 16:24 Intake Total 10 Balance 10 Weight 71.214 kg Intake: IV 10 Falls Risk Assessment History of Falls No History 03/23/25 15:38 Contributing Factors No Factors 03/23/25 15:38 Ambulatory Aids Independent 03/23/25 15:38 Tubes/Lines None 03/23/25 15:38 Gait Evaluation No gait disturbance 03/23/25 15:38 Cognition No cognitive impairment 03/23/25 15:38 Fall Total Score 0 03/23/25 15:38 Level of Risk Standard/Low Risk 03/23/25 15:38 Problems (Last Reviewed 03/23/25 @ 16:03 by Sarah Guerrero NP) Anemia (Chronic) Abdominal mass, right lower quadrant (Acute) Diarrhea (Acute) Giant cell arteritis (Chronic 10/27/15) Essential hypertension (Chronic 10/19/13) S/P TAVR (transcatheter aortic valve replacement) (Acute) Incompatible blood transfusion (Acute) v v v v v v v v v Sending and/or Receiving Nurses: Please use comment section below to note any information pertinent to the patient hand-off not included above. Information / Comments: Report taken from ED RN Dolores, patient was sent by her PCP to come to ER due to hgb result of 6.8 and was repeated in ED was 6.4. Patient is AO x 3., DNR/DNI, has allergies on doxy, nickel,lisinopril and beta blockers. Presenting problems are weakness, dizziness and general malaise., never had colonoscopy. Needs herminio specimen, urine was sent already to lab.All questions asked answered accordingly. Report received from:
[2025-03-23] MEDS: Normal Saline Flush 10 ML SYR IVP (21:17)
[2025-03-23] MEDS: Normal Saline 1,000 ML 100 ML IV (23:16)
[2025-03-24] VITALS (15 sets, daily range): BP systolic 97–128; BP diastolic 45–63; PULSE 66–84; RESP 14–22; TEMP 36–36.8; O2SAT 94–99
[2025-03-24 06:50] LABS: HCT 21.4 % (36.0-46.0); MCH 24.5 pg (27.0-33.0); MCHC 29.4 % (32.0-36.0); MCV 83 fL (80-95); MPV 10.3 fL (8.0-11.0); Platelet Count 441 10^3/uL (130-400); RBC 2.57 10^6/uL (3.93-5.22); RDW 16.6 % (11.7-14.6); RDW-SD 50.1 fL; WBC 10.97 10^3/uL (4.4-10.8)
[2025-03-24 07:29] LABS: ALT 17 U/L (14-59); AST 12 U/L (15-37); Alkaline Phosphatase 55 U/L (46-116); Anion Gap 9.8 mmol/L (3-11); BUN 28 mg/dL (7-18); Bilirubin, Total 0.7 mg/dL (0.2-1.0); CO2 26.2 mmol/L (21.0-32.0); CREATININE 1.5 mg/dL (0.55-1.02); Calcium 8.6 mg/dL (8.5-10.1); Chloride 106 mmol/L (98-107); Estimated GFR 34.36 (mL/min/1.73m2); Glucose 88 mg/dL (74-106); Potassium 3.8 mmol/L (3.5-5.1); Sodium 142 mmol/L (136-145); Total Protein 6.2 g/dL (6.4-8.2)
[2025-03-24 07:49] LABS: C Diff PCR Negative (Negative); EPI 027-NAP1-B1 PRESUMPTIVE NEGATIVE
[2025-03-24 08:04] LABS: HGB 6.3 g/dL (11.2-15.7)
--- NOTE | 2025-03-24 08:51 | PDOC.CMIN ---
Date of service: 03/24/25 Time of Service: 08:51 Care Management Initial Assmt Initial Assessment Reason for Hospitalization: GIB Functional Status/Living Situation Patient Presentation: Zeny was sitting her chair, when CM arrived. She stated her son had just walked out, but will be back to visit. Zeny presented to the ED a chief complaint of lightheadedness, approximately 15 pound weight loss over the last 2 to 3 months, lower abdominal pain, diarrhea which has been ongoing intermittently for the last 2 to 3 months and intermittent GI bleed. Zeny is a pleasant lady who is willing to engage in conversation. She is currently living alone, in her single family home with 2-4 entrance steps, in [place]. She states, she has 3 children who are supportive, but they are not local; Her children visit often and bring her groceries to fill the freezer when they do visit. Zeny reports, she has a supportive relationship with her neighbors, who help her meet her needs. Zeny states, she is no longer driving, but through the [facility] she is able to utilize [facility] transportation, for her medical appointments; Zeny's neighbor's will often bring her to the store or pick things up for her, when she ask's. Per Zeny, she does not receive HH services currently, but would like them upon discharge. CM requested a PT consult from the provider, for when medically appropriate. CM will continue to follow. 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 Medications Medication Management: No Issues/Barriers identified Advance Directives Advance Directives: Do you have an Advance Directive: Y 11/14/13 00:46 AD On File at [facility]: Y 03/03/13 10:11 Date Asked 03/23/25 03/23/25 11:13 AD Date Reviewed 03/23/25 03/23/25 15:32 COLST On File at [facility] Yes 07/29/21 04:13 COLST Date Scanned 07/29/21 07/29/21 04:13 Code Status Resuscitation Status DNR/DNI Portal Pt does not currently have a portal and education provided: Yes Insurance Coverage/Financial Issues Insurance: Medicare Part A & B - [id number] /[facility] - [id number] Care Team Visit Care Team Role Provider Type Shaila Ayala APRN MD [facility] STAFF PHYSICIAN Zoey Lucas MD, [place] Primary Care Provider [facility] Alesha Hernandez Other Providers APPLICATIONS SCIENTIST Cheryl Sullivan Other Providers APPLICATIONS SCIENTIST Radhika Hernandez Other Providers APPLICATIONS SCIENTIST Shannon Kim RN Other Providers APPLICATIONS SCIENTIST Becki Contreras Other Providers APPLICATIONS SCIENTIST Sarah Guerrero NP Emergency Provider NURSE PRACTITIONER Dc Contreras MD Admit Provider [facility] STAFF PHYSICIAN Attending Provider Discharge Potential Discharge Needs: PT Evaluation and PCP F/U Appt Anticipated Barriers to Discharge: Medical Status Patient/Family Education Needs: Review discharge instructions, discuss Ask Me Three Transportation: Private vehicle Plan: Anticipate Zeny will return home with potential new services, PT consult pending, once medically ready. She will follow up with her PCP and continue per her plan of care. Zeny will transport via private vehicle by children. CM will continue to follow. Social Determinants of Health Screening Social Determinants of health last assessed in clinic: 03/24/25 Will the Patient Participate in the Screening?: Yes Do you worry about having a steady place to live?: yes What is your living situation today?: I have housing today, but am worried about losing it Problems where you live: no known problems In the past 12 months, have you had to go without electric, gas, oil or water in your home?: no 1. Within the past 12 months, we worried whether our food would run out before we got money to buy more.: Never true 2. Within the past 12 months, the food we bought just didn't last and we didn't have money to get more.: Never true Has lack of transportation kept you from medical appointments or from doing things needed for daily living?: no Has anyone in your life made you feel unsafe or unsupported?: no How hard is it for you to pay for the very basics like food, housing, medical care, and heating? Would you say it is:: Not hard at all Do you want help finding or keeping work or a job?: I do not need or want help If for any reason you need help with day-to-day activities such as bathing, preparing meals, shopping, managing finances, etc., do you get the help you need?: I get all the help I need How often do you feel lonely or isolated from those around you?: Never Do you speak a language other than Kyrgyz at home?: No Does the patient want assistance with any of the above?: No Health Related Social Needs Health related social needs: housing instability, housed, with risk of homelessness (Z59.811) Health related social needs details: not applicable, since neighbor is very much attentive on her needs. 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 See visit note Knee pain, right (Acute) S/P TAVR (transcatheter aortic valve replacement) (Acute) [facility] [place], Incompatible blood transfusion (Acute) Anti E antigen - need to order special blood for transfusions Sciatica of left side due to displacement of lumbar intervertebral disc (Acute) Lumbar stenosis with neurogenic claudication (Acute) Bruising (Acute) Medical History Pre-op testing Hip pain, right E. coli UTI Sepsis due to Escherichia coli Elevated troponin Hypokalemia Acute kidney injury superimposed on chronic kidney disease Shortness of breath Discharge planning issues DVT prophylaxis Acute UTI Sepsis Lumbar stenosis with neurogenic claudication MRI 06/06/21 - L3-4 herniation with severe stenosis Leg wound, left Back pain Aortic stenosis Ganglion of tendon sheath (01/11/05) History of unilateral nephrectomy Impacted cerumen Primary malignant neoplasm of lung (09/12/83) Swelling of left lower extremity (02/17/15) H/O unilateral nephrectomy left; congenital deformity Impacted cerumen Asthma 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; 1983 Lobectomy; 03/20 Neg CXR & Barium swallow Ganglion of tendon sheath 01/11/05 Ganglion cyst of R foot Left leg swelling 02/17/15 Neck mass see US 11/01 Anxiety (08/30/15) Cataract (11/19/16) Chronic cough Insomnia (10/08/17) Mass of right side of neck (02/28/16) Right hip pain (09/06/15) Skin lesion of face (08/30/15) 4mm by 2mm left upper lip Surgical History Status post cholecystectomy Status post lobectomy of lung S/P cholecystectomy S/P lobectomy of lung 10/14/83 left upper lobectomy; 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 Daughter No problems noted. Social History Smoking/Tobacco Use Status: Former Tobacco Use Quit Date: 10/14/83 Tobacco: How many years used: 15 Quit status: quit date established Second Hand Exposure: Yes Smoking risk assessment performed?: Yes Alcohol Intake: current Alcohol Intake frequency: holidays/special occasions only Alcohol type: wine Drug use: Never Substance use type: does not use Adopted: No Caregiver/Support person: No Foster care: No Household members: other Details: grandson Housing: house Number of Children: 3 number of grandchildren: 4 Communication Needs: None Do you need help understanding health information?: Rarely Pets and animals: No Sexually active: No Do you think of yourself as: straight/heterosexual Current gender identity: female What is your relationship status?: How often do you talk on the phone with friends or family?: three or more times per week How often do you get together with friends or relatives?: three or more times per week How often do you attend rastafarian or restorationism services?: 4 or more times per year Do you belong to any clubs or organized social groups?: yes Panel score (0-1 are the most socially isolated patients): 3 What type of physical activity do you participate in: walking Duration: 15-30 minutes/day Frequency: daily [place]/Adventism: Pentecostalism Special [place] needs: No Agree to transfusion: Yes Seatbelt use: always Drive intox or ride w/intox drive away driver: No Working smoke detector in home: Yes Carbon monox detector in home: Yes Firearms in home: Yes Firearms unloaded and locked: Yes Do you feel safe at home: Yes Do you feel safe in your relationship?: Yes Victim of physical abuse: No Victim of emotional abuse: No Victim of sexual abuse: No Would you like helpful sources: No Readmission Within the Past 30 Days Yes or No: No
--- NOTE | 2025-03-24 09:48 | W.PM.PROGNOT ---
Date of Service Date of service: 03/24/25 Time of Service: 09:48 Assessment and Plan Assessment and plan (1) Diarrhea: Status: Acute Assessment and plan: Bowel mass on imaging, most likely neoplastic secondary to mass at the cecum. Surgical consult: Please read note -Once PRBC's transfusion started - GoLytely prep and clears - Colonoscopy 1-2 days for Dx (2) Abdominal mass, right lower quadrant: Status: Acute Assessment and plan: As above (3) Anemia: Start date: 03/24/25 Start time: 17:35 Status: Chronic Assessment and plan: H&H 6.3 & 21 Type and cross and give 2 units of packed red blood cells - blood still en route this PM as per lab Patient does have compatibility issue CBC in AM (4) Incompatible blood transfusion: Status: Acute Assessment and plan: As above (5) Giant cell arteritis: Status: Chronic Assessment and plan: Continue daily prednisone 7 mg (6) Essential hypertension: Status: Chronic Assessment and plan: On home meds -beta-juan ARB diuretic (7) S/P TAVR (transcatheter aortic valve replacement): Status: Acute Assessment and plan: biologic valve , not on DOAC on ASA only (8) On deep vein thrombosis (DVT) prophylaxis: Status: Acute Assessment and plan: Ongoing SCD's Discussed with Dr. Berg Subjective Subjective Patient reports: no new complaints, pain is less, voiding w/o difficulty, bowel movement, diarrhea and other (increased WOB w/o hypoxia ); denies blood in stool, nausea, vomiting, shortness of breath or fever Exam Narrative Exam Narrative: 84 years old female looking of stated age, alert and oriented X4, no acute distress,clear breath sounds, S1, S2, regular , abdomen is large, non-distended, soft and non-tender, no bladder distention, moves all 4 ext Objective Last Vital Signs Temp 36.5 C 03/24/25 07:36 Pulse 70 03/24/25 07:36 Resp 18 03/24/25 07:36 BP 112/55 L 03/24/25 07:36 Pulse Ox 99 03/24/25 07:36 Laboratory Results - last 24 hr 03/23/25 03/23/25 03/23/25 10:00 16:15 20:17 WBC 10.96 H RBC 2.61 L Hgb 6.4 L* Hct 21.7 L MCV 83 MCH 24.5 L MCHC 29.5 L RDW 16.6 H Plt Count 421 H MPV 9.5 Immature Gran % 0.6 Neutrophils % 80.2 Lymphocytes % 9.7 Monocytes % 8.7 Eosinophils % 0.3 Basophils % 0.5 Nucleated RBC % 0.0 Absolute Neutrophils 8.79 H Absolute Lymphocytes 1.06 L Absolute Monocytes 0.95 H Absolute Eosinophils 0.03 Absolute Basophils 0.05 RBC Morphology See Below Hypochromasia 2+ Poikilocytosis 1+ PT 12.5 H INR 1.3 H Sodium 140 Potassium 4.2 Chloride 103 Carbon Dioxide 26.6 Anion Gap 10.4 BUN 36 H Creatinine 1.7 H Est GFR (CKD-EPI 2020) 29.57 Glucose 116 H Calcium 9.1 Magnesium 2.1 Total Bilirubin 0.5 AST 12 L ALT 21 Alkaline Phosphatase 57 Total Protein 6.6 Albumin 3.2 L Lipase 26 Urine Color Yellow Urine Clarity Clear Urine pH 5.5 Ur Specific [place] 1.010 Urine Protein Negative Urine Ketones Negative Urine Blood Negative Urine Nitrite Negative Urine Bilirubin Negative Urine Urobilinogen 0.2 Ur Leukocyte Esterase Negative Urine Glucose Negative Stl C.difficile Tox PCR ABO/Rh O Positive Blood Type Recheck O Positive Antibody Screen POSITIVE Antibody Identification Anti-E Crossmatch See Detail 03/24/25 03/24/25 05:50 06:04 WBC 10.97 H RBC 2.57 L Hgb 6.3 L* Hct 21.4 L MCV 83 MCH 24.5 L MCHC 29.4 L RDW 16.6 H Plt Count 441 H MPV 10.3 Immature Gran % Neutrophils % Lymphocytes % Monocytes % Eosinophils % Basophils % Nucleated RBC % Absolute Neutrophils Absolute Lymphocytes Absolute Monocytes Absolute Eosinophils Absolute Basophils RBC Morphology Hypochromasia Poikilocytosis PT INR Sodium 142 Potassium 3.8 Chloride 106 Carbon Dioxide 26.2 Anion Gap 9.8 BUN 28 H Creatinine 1.5 H Est GFR (CKD-EPI 2020) 34.36 Glucose 88 Calcium 8.6 Magnesium Total Bilirubin 0.7 AST 12 L ALT 17 Alkaline Phosphatase 55 Total Protein 6.2 L Albumin 3.0 L Lipase Urine Color Urine Clarity Urine pH Ur Specific [place] Urine Protein Urine Ketones Urine Blood Urine Nitrite Urine Bilirubin Urine Urobilinogen Ur Leukocyte Esterase Urine Glucose Stl C.difficile Tox PCR Negative ABO/Rh Blood Type Recheck Antibody Screen Antibody Identification Crossmatch Time Spent with Patient Time Spent with Patient: >50 minutes Time was spent: preparing to see the patient(eg.review tests), obtaining and/or reviewing separately otained hiistory, ordering medications,tests, procedures, referring, communicating with other health health care legal assistant, indepentently interpreting results, counseling the patient and care coordination
[2025-03-24] MEDS: Losartan 50 MG TAB PO (10:08)
[2025-03-24] MEDS: Cholecalciferol (Vitamin D3) 1,000 UNIT TAB 2000 UNITS PO (10:08)
[2025-03-24] MEDS: hydroCHLOROthiazide 12.5 MG TAB PO (10:08)
[2025-03-24] MEDS: predniSONE 1 MG TAB PO (10:08)
[2025-03-24] MEDS: Escitalopram 10 MG TAB PO (10:09)
[2025-03-24] MEDS: predniSONE 5 MG TAB PO (10:09)
[2025-03-24] MEDS: Normal Saline Flush 10 ML SYR IVP ×2 (10:09→20:08)
[2025-03-24] MEDS: amLODIPine 5 MG TAB PO (10:09)
[2025-03-24] MEDS: Calcium 600mg/Vit D 200U TAB 2 TAB PO (10:09)
[2025-03-24] MEDS: Normal Saline 1,000 ML 100 ML IV (10:14)
--- NOTE | 2025-03-24 11:36 | W.SURGCON ---
Date of service: 03/24/25 Time of Service: 11:36 Assessment and Plan Assessment and plan (1) Anemia: Status: Chronic Assessment and plan: Severe symptomatic anemia in an 84-year-old woman who has associated GI symptoms. She has not had recent colonoscopy. She has antibodies so her transfusions have been delayed. As soon as she starts to receive blood transfusions and starts with less symptoms on exertion, her GoLytely prep can get started. Dr. Knox should be able to add her on for colonoscopy in the next 1 to 2 days. When she can tolerate the prep she should receive it. She may continue to have clear liquids after her GoLytely prep until the actual procedure is scheduled. 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 Mass is seen on CT scan and the patient has never had a colonoscopy. Colonoscopy is indicated to make a diagnosis and perform biopsies. I do not anticipate that there will be any issue with the anesthesia department offering sedation for colonoscopy. The patient is interested in whether surgery could be performed here and does prefer that. I told her that 2 barriers to having surgery here could be complexity of anesthesia and the difficulty in crossmatching for blood transfusions. She understands , and agrees that first before having that discussion, we need to make a diagnosis. 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 She has associated diarrhea and weight loss so a CT scan was obtained that shows a mass of the cecum. The patient noticed increasing shortness of breath with exertion and general malaise over the last few weeks. She has had to use a walker to get around with confidence and this is new for her. She has never had a colonoscopy. Today her hemoglobin is 6.3 and hematocrit 21.4. Her only anticoagulation is baby aspirin. The patient has history of multiple previous surgeries including left nephrectomy and left lower lobe lobectomy for which she received blood transfusions in the past. She also had a previous open cholecystectomy. She had a recent TAVR and during her workup for that procedure was found to have blood antibodies. Type and cross and transfusion has been ordered for her but are delayed due to the antibiotics. No transfusion has been started yet. Review of Systems Constitutional Constitutional: Reports system reviewed and no additional complaints, except as documented Cardiovascular Cardiovascular: Denies chest pain and Reports dyspnea on exertion Respiratory Respiratory: Reports dyspnea on exertion Gastrointestinal Gastrointestinal: Denies abdominal pain, Reports hematochezia (Single recent episode) and Reports diarrhea Hematologic/Lymphatic Comments: Denies general easy bleeding or easy bruising; denies history of blood clots PFSH All Active Problems (Updated 03/24/25 @ 11:47 by Yuki Fuentes MD) Abnormal findings on diagnostic imaging of abdomen (Acute) Anemia (Chronic) Abdominal mass, right lower quadrant (Acute) Weight loss, abnormal (Acute) Thyroid goiter (Acute) Facial lesion (Acute) Weight loss (Acute) Diarrhea (Acute) Vitamin D deficiency (Chronic 01/19/09) Hyperlipidemia (Chronic) 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 coli UTI Sepsis due to Escherichia coli Elevated troponin Hypokalemia Acute kidney injury superimposed on chronic kidney disease Shortness of breath Discharge planning issues DVT prophylaxis Acute UTI Sepsis Lumbar stenosis with neurogenic claudication MRI 06/06/21 - L3-4 herniation with severe stenosis Leg wound, left Back pain Aortic stenosis Ganglion of tendon sheath (01/11/05) History of unilateral nephrectomy Impacted cerumen Primary malignant neoplasm of lung (09/12/83) Swelling of left lower extremity (02/17/15) H/O unilateral nephrectomy left; congenital deformity Impacted cerumen Asthma 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; 1983 Lobectomy; 03/20 Neg CXR & Barium swallow Ganglion of tendon sheath 01/11/05 Ganglion cyst of R foot Left leg swelling 02/17/15 Neck mass see US 11/01 Anxiety (08/30/15) Cataract (11/19/16) Chronic cough Insomnia (10/08/17) Mass of right side of neck (02/28/16) Right hip pain (09/06/15) Skin lesion of face (08/30/15) 4mm by 2mm left upper lip Surgical History Status post cholecystectomy Status post lobectomy of lung S/P cholecystectomy S/P lobectomy of lung 10/14/83 left upper lobectomy; 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 Daughter No problems noted. Social History Smoking/Tobacco Use Status: Former Tobacco Use Quit Date: 10/14/83 Tobacco: How many years used: 15 Quit status: quit date established Second Hand Exposure: Yes Smoking risk assessment performed?: Yes Alcohol Intake: current Alcohol Intake frequency: holidays/special occasions only Alcohol type: wine Drug use: Never Substance use type: does not use Adopted: No Caregiver/Support person: No Foster care: No Household members: other Details: grandson Housing: house Number of Children: 3 number of grandchildren: 4 Communication Needs: None Do you need help understanding health information?: Rarely Pets and animals: No Sexually active: No Do you think of yourself as: straight/heterosexual Current gender identity: female What is your relationship status?: How often do you talk on the phone with friends or family?: three or more times per week How often do you get together with friends or relatives?: three or more times per week How often do you attend restorationist or yazidism services?: 4 or more times per year Do you belong to any clubs or organized social groups?: yes Panel score (0-1 are the most socially isolated patients): 3 What type of physical activity do you participate in: walking Duration: 15-30 minutes/day Frequency: daily [place]/Presybeterian: Anabaptism Special [place] needs: No Agree to transfusion: Yes Seatbelt use: always Drive intox or ride w/intox hearse driver: No Working smoke detector in home: Yes Carbon monox detector in home: Yes Firearms in home: Yes Firearms unloaded and locked: Yes Do you feel safe at home: Yes Do you feel safe in your relationship?: Yes Victim of physical abuse: No Victim of emotional abuse: No Victim of sexual abuse: No Would you like helpful sources: No Exam Narrative Exam Narrative: Extremely pale 84-year-old woman who is sitting upright in bed, alert, oriented and conversant. No shortness of breath at rest. Her good friend Neha is at the bedside and her son joined us during the interview. Const General: cooperative and no acute distress HENMT Head: normal to inspection Mouth: oral mucosae normal Eyes General: appearance normal, both eyes and all related structures Conjunctivae: other (Pale) Neck Neck: normal visual inspection, supple and no lymphadenopathy noted Resp Auscultation: clear to auscultation bilaterally Cardio Rate: regular rate Rhythm: regular rhythm Heart Sounds: S1 normal, S2 normal and murmur (Systolic ejection) GI Inspection: normal to inspection and other (Well-healed scars) Palpation: soft, no guarding and tender (Tender on palpation in the right lower quadrant over the cecum) Skin Rashes: rashes noted (Bilateral stasis dermatitis) Neuro General: patient alert, patient oriented x3 and no focal motor deficits Extrem General: no pedal edema Psych Mood: congruent mood Affect: normal affect Thought Process: normal Results Last Vital Signs Temp 36.5 C 03/24/25 07:36 Pulse 70 03/24/25 07:36 Resp 18 03/24/25 07:36 BP 112/55 L 03/24/25 07:36 Pulse Ox 99 03/24/25 07:36 Labs 03/24/25 06:04 03/24/25 06:04 Labs: Laboratory Results - last 24 hr 03/23/25 03/23/25 03/23/25 10:00 16:15 20:17 WBC 10.96 H RBC 2.61 L Hgb 6.4 L* Hct 21.7 L MCV 83 MCH 24.5 L MCHC 29.5 L RDW 16.6 H Plt Count 421 H MPV 9.5 Immature Gran % 0.6 Neutrophils % 80.2 Lymphocytes % 9.7 Monocytes % 8.7 Eosinophils % 0.3 Basophils % 0.5 Nucleated RBC % 0.0 Absolute Neutrophils 8.79 H Absolute Lymphocytes 1.06 L Absolute Monocytes 0.95 H Absolute Eosinophils 0.03 Absolute Basophils 0.05 RBC Morphology See Below Hypochromasia 2+ Poikilocytosis 1+ PT 12.5 H INR 1.3 H Sodium 140 Potassium 4.2 Chloride 103 Carbon Dioxide 26.6 Anion Gap 10.4 BUN 36 H Creatinine 1.7 H Est GFR (CKD-EPI 2020) 29.57 Glucose 116 H Calcium 9.1 Magnesium 2.1 Total Bilirubin 0.5 AST 12 L ALT 21 Alkaline Phosphatase 57 Total Protein 6.6 Albumin 3.2 L Lipase 26 Urine Color Yellow Urine Clarity Clear Urine pH 5.5 Ur Specific [place] 1.010 Urine Protein Negative Urine Ketones Negative Urine Blood Negative Urine Nitrite Negative Urine Bilirubin Negative Urine Urobilinogen 0.2 Ur Leukocyte Esterase Negative Urine Glucose Negative Stl C.difficile Tox PCR ABO/Rh O Positive Blood Type Recheck O Positive Antibody Screen POSITIVE Antibody Identification Anti-E Crossmatch See Detail 03/24/25 03/24/25 05:50 06:04 WBC 10.97 H RBC 2.57 L Hgb 6.3 L* Hct 21.4 L MCV 83 MCH 24.5 L MCHC 29.4 L RDW 16.6 H Plt Count 441 H MPV 10.3 Immature Gran % Neutrophils % Lymphocytes % Monocytes % Eosinophils % Basophils % Nucleated RBC % Absolute Neutrophils Absolute Lymphocytes Absolute Monocytes Absolute Eosinophils Absolute Basophils RBC Morphology Hypochromasia Poikilocytosis PT INR Sodium 142 Potassium 3.8 Chloride 106 Carbon Dioxide 26.2 Anion Gap 9.8 BUN 28 H Creatinine 1.5 H Est GFR (CKD-EPI 2020) 34.36 Glucose 88 Calcium 8.6 Magnesium Total Bilirubin 0.7 AST 12 L ALT 17 Alkaline Phosphatase 55 Total Protein 6.2 L Albumin 3.0 L Lipase Urine Color Urine Clarity Urine pH Ur Specific [place] Urine Protein Urine Ketones Urine Blood Urine Nitrite Urine Bilirubin Urine Urobilinogen Ur Leukocyte Esterase Urine Glucose Stl C.difficile Tox PCR Negative ABO/Rh Blood Type Recheck Antibody Screen Antibody Identification Crossmatch Imaging Abdomen CT scan report/results: report reviewed
--- NOTE | 2025-03-24 12:18 | W.PALLCONSUL ---
Date of service: 03/24/25 Time of Service: 12:19 History of Present Illness History of Present Illness Chief Complaint: Abdomnal pain, decreased PO, fatigue Narrative: Ruthie is a 84-year-old woman whom I have known for over 20 years. She recently had contacted me through the portal about abdominal diarrhea. At that time we recommended starting on a brat diet and since she had follow-up within 2 weeks to be certain to keep her upcoming appointment. She then contacted approximately a week ago after 1 episode of rectal bleeding. It did not last long. She had contacted [facility] and was instructed to go to the emergency room. She did not. The pain became worse. She saw me yesterday at her follow-up for her blood pressure. At that time I ordered stool cultures and labs. When her hematocrit/hemoglobin was very low, I called her and sent her to the emergency room. In the emergency room she was found to have a hemoglobin of approximately 6. She also has a cecal mass. Please note her hemoglobin was very low but she also has some abnormal antibodies therefore she has not yet received blood products. She was also seen by surgery and will have a colonoscopy in the near future. The purpose of the colonoscopy is to obtain pathology Consults Consult date: 03/24/25 Requesting physician: Byron Berg Assessment and Plan Assessment and plan (1) Incompatible blood transfusion: Status: Acute (2) Weight loss: Status: Acute (3) Abdominal mass, right lower quadrant: Status: Acute (4) Anemia: Status: Chronic Assessment and plan: Anemia with hemoglobin of 6. Awaiting transfusion but due to her special blood antigens, transfusion has been delayed. Abdominal mass?hopefully she will be able to have a colonoscopy within the next day or 2 to determine pathology on her mass. Spoke briefly to her children in the room. She has excellent family support. CODE STATUS?in the past we have discussed this many times. She is a DNR/DNI. Review of Systems Narrative: She is fatigued. She continues to have diarrhea. She is a bit anxious awaiting her blood products. Weight loss of approximately 15 pounds PFSH All Active Problems (Updated 03/24/25 @ 15:59 by Shaila Ayala APRN) On deep vein thrombosis (DVT) prophylaxis (Acute) Abnormal findings on diagnostic imaging of abdomen (Acute) Anemia (Chronic) Abdominal mass, right lower quadrant (Acute) Weight loss, abnormal (Acute) Thyroid goiter (Acute) Facial lesion (Acute) Weight loss (Acute) Diarrhea (Acute) Bruising (Acute) Lumbar stenosis with neurogenic claudication (Acute) Sciatica of left side due to displacement of lumbar intervertebral disc (Acute) Incompatible blood transfusion (Acute) Anti E antigen - need to order special blood for transfusions S/P TAVR (transcatheter aortic valve replacement) (Acute) [facility] 11/17/21, Knee pain, right (Acute) Physician orders for life-sustaining treatment (POLST) form indicates patient wish for [id number] status (Acute) per conversation 01/21/2020. 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 coli UTI Sepsis due to Escherichia coli Elevated troponin Hypokalemia Acute kidney injury superimposed on chronic kidney disease Shortness of breath Discharge planning issues DVT prophylaxis Acute UTI Sepsis Lumbar stenosis with neurogenic claudication MRI 06/06/21 - L3-4 herniation with severe stenosis Leg wound, left Back pain Aortic stenosis Ganglion of tendon sheath (01/11/05) History of unilateral nephrectomy Impacted cerumen Primary malignant neoplasm of lung (09/12/83) Swelling of left lower extremity (02/17/15) H/O unilateral nephrectomy left; congenital deformity Impacted cerumen Asthma 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; 1983 Lobectomy; 03/20 Neg CXR & Barium swallow Ganglion of tendon sheath 01/11/05 Ganglion cyst of R foot Left leg swelling 02/17/15 Neck mass see US 11/01 Anxiety (08/30/15) Cataract (11/19/16) Chronic cough Insomnia (10/08/17) Mass of right side of neck (02/28/16) Right hip pain (09/06/15) Skin lesion of face (08/30/15) 4mm by 2mm left upper lip Surgical History Status post cholecystectomy Status post lobectomy of lung S/P cholecystectomy S/P lobectomy of lung 10/14/83 left upper lobectomy; 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 Daughter No problems noted. Social History Smoking/Tobacco Use Status: Former Tobacco Use Quit Date: 10/14/83 Tobacco: How many years used: 15 Quit status: quit date established Second Hand Exposure: Yes Smoking risk assessment performed?: Yes Alcohol Intake: current Alcohol Intake frequency: holidays/special occasions only Alcohol type: wine Drug use: Never Substance use type: does not use Adopted: No Caregiver/Support person: No Foster care: No Household members: other Details: grandson Housing: house Number of Children: 3 number of grandchildren: 4 Communication Needs: None Do you need help understanding health information?: Rarely Pets and animals: No Sexually active: No Do you think of yourself as: straight/heterosexual Current gender identity: female What is your relationship status?: How often do you talk on the phone with friends or family?: three or more times per week How often do you get together with friends or relatives?: three or more times per week How often do you attend mandaeism or muslim services?: 4 or more times per year Do you belong to any clubs or organized social groups?: yes Panel score (0-1 are the most socially isolated patients): 3 What type of physical activity do you participate in: walking Duration: 15-30 minutes/day Frequency: daily [place]/Adventist: Samaritan Special [place] needs: No Agree to transfusion: Yes Seatbelt use: always Drive intox or ride w/intox driver's education instructor: No Working smoke detector in home: Yes Carbon monox detector in home: Yes Firearms in home: Yes Firearms unloaded and locked: Yes Do you feel safe at home: Yes Do you feel safe in your relationship?: Yes Victim of physical abuse: No Victim of emotional abuse: No Victim of sexual abuse: No Would you like helpful sources: No Exam Narrative Exam Narrative: Ruthie is alert and oriented x 3. Her heart is regular. Lungs good aeration. Abdomen good bowel sounds. Tender in the lower quadrant especially on the right. Although I know she has a cecal mass, I did not appreciate a mass in her right lower quadrant Results Last Vital Signs Temp 97.7 F 03/24/25 11:53 Pulse 79 03/24/25 11:53 Resp 14 03/24/25 11:53 BP 120/55 L 03/24/25 11:53 Pulse Ox 94 03/24/25 11:53 Labs 03/24/25 06:04 03/24/25 06:04 Labs: Laboratory Results - last 24 hr 03/23/25 03/23/25 03/23/25 10:00 16:15 20:17 WBC 10.96 H RBC 2.61 L Hgb 6.4 L* Hct 21.7 L MCV 83 MCH 24.5 L MCHC 29.5 L RDW 16.6 H Plt Count 421 H MPV 9.5 Immature Gran % 0.6 Neutrophils % 80.2 Lymphocytes % 9.7 Monocytes % 8.7 Eosinophils % 0.3 Basophils % 0.5 Nucleated RBC % 0.0 Absolute Neutrophils 8.79 H Absolute Lymphocytes 1.06 L Absolute Monocytes 0.95 H Absolute Eosinophils 0.03 Absolute Basophils 0.05 RBC Morphology See Below Hypochromasia 2+ Poikilocytosis 1+ PT 12.5 H INR 1.3 H Sodium 140 Potassium 4.2 Chloride 103 Carbon Dioxide 26.6 Anion Gap 10.4 BUN 36 H Creatinine 1.7 H Est GFR (CKD-EPI 2020) 29.57 Glucose 116 H Calcium 9.1 Magnesium 2.1 Total Bilirubin 0.5 AST 12 L ALT 21 Alkaline Phosphatase 57 Total Protein 6.6 Albumin 3.2 L Lipase 26 Urine Color Yellow Urine Clarity Clear Urine pH 5.5 Ur Specific [place] 1.010 Urine Protein Negative Urine Ketones Negative Urine Blood Negative Urine Nitrite Negative Urine Bilirubin Negative Urine Urobilinogen 0.2 Ur Leukocyte Esterase Negative Urine Glucose Negative Stl C.difficile Tox PCR ABO/Rh O Positive Blood Type Recheck O Positive Antibody Screen POSITIVE Antibody Identification Anti-E Crossmatch See Detail 03/24/25 03/24/25 05:50 06:04 WBC 10.97 H RBC 2.57 L Hgb 6.3 L* Hct 21.4 L MCV 83 MCH 24.5 L MCHC 29.4 L RDW 16.6 H Plt Count 441 H MPV 10.3 Immature Gran % Neutrophils % Lymphocytes % Monocytes % Eosinophils % Basophils % Nucleated RBC % Absolute Neutrophils Absolute Lymphocytes Absolute Monocytes Absolute Eosinophils Absolute Basophils RBC Morphology Hypochromasia Poikilocytosis PT INR Sodium 142 Potassium 3.8 Chloride 106 Carbon Dioxide 26.2 Anion Gap 9.8 BUN 28 H Creatinine 1.5 H Est GFR (CKD-EPI 2020) 34.36 Glucose 88 Calcium 8.6 Magnesium Total Bilirubin 0.7 AST 12 L ALT 17 Alkaline Phosphatase 55 Total Protein 6.2 L Albumin 3.0 L Lipase Urine Color Urine Clarity Urine pH Ur Specific [place] Urine Protein Urine Ketones Urine Blood Urine Nitrite Urine Bilirubin Urine Urobilinogen Ur Leukocyte Esterase Urine Glucose Stl C.difficile Tox PCR Negative ABO/Rh Blood Type Recheck Antibody Screen Antibody Identification Crossmatch Imaging CT scan - pelvis: report reviewed (IMPRESSION: 1. 6.2 x 6.2 x 7.1 cm irregular wall thickening in the base of the cecum most suggestive of a neoplasm. There is no evidence of obstruction. 2. No evidence of metastatic disease. 3. Colonic diverticulosis without evidence of acute diverticulitis. 4. Findings were discussed with the Sha) Time Spent Time Spent with Patient Time Spent(min): 41
[2025-03-24] MEDS: Metoprolol CR 25 MG TABCR PO (16:26)
--- NOTE | 2025-03-24 16:31 | PHA.REVIEW2 ---
Pharmacy Admission Review Admission Clinical Review Admission Pharmacy Review: On deep vein thrombosis (DVT) prophylaxis (Acute) Abnormal findings on diagnostic imaging of abdomen (Acute) Abdominal mass, right lower quadrant (Acute) Diarrhea (Acute) S/P TAVR (transcatheter aortic valve replacement) (Acute) Incompatible blood transfusion (Acute) doxazosin Allergy (Severe, Verified 03/23/25 15:36) RASH nickel Allergy (Severe, Verified 03/23/25 15:36) SEVERE RASH lisinopril Allergy (Intermediate, Verified 03/23/25 15:36) HIVES Beta-Blockers (Beta-Adrenergic Bloc Adverse Reaction (Intermediate, Verified 03/23/25 15:36) WEAKNESS Resuscitation Status DNR/DNI Height 5 ft 1 in Weight 70.874 kg Comments Comments/Follow Ups: Patient's CBC remarkable due to anemia may need monitoring with active GI bleed, Watch renal function for possible medication dose adjustments Pharmacy Admission Review Renal Dosing Renal Dosing: BUN 28 mg/dL (7-18) H 03/24/25 06:04 Creatinine 1.5 mg/dL (0.55-1.02) H 03/24/25 06:04 Medications needing adjustments: Reviewed (Current medications okay though Crcl as of today is ~ 26ml/min) Anticoagulation Anticoagulation: Hgb 6.3 g/dL (11.2-15.7) L* 03/24/25 06:04 Hct 21.4 % (36.0-46.0) L 03/24/25 06:04 Plt Count 441 10^3/uL (130-400) H 03/24/25 06:04 INR 1.3 (0.9-1.1) H 03/23/25 16:15 Creatinine 1.5 mg/dL (0.55-1.02) H 03/24/25 06:04 DVT Prophylaxis: Reviewed (SCDs ordered. NO chemical prophylaxis due to GI bleed) Opiate Usage Evaluate Pain Scale/Pains Meds: N/A Relevant Labs Relevant Labs: Sodium 142 mmol/L (136-145) 03/24/25 06:04 Potassium 3.8 mmol/L (3.5-5.1) 03/24/25 06:04 Chloride 106 mmol/L (98-107) 03/24/25 06:04 Magnesium 2.1 mg/dL (1.8-2.4) 03/23/25 16:15 Electrolytes, C-Reactive P, ESR: Reviewed DM Control DM Control: Reviewed (No history of DM noted in medical history.) Cardiac Review Cardiac Review: Blood Pressure 128/55 Blood Pressure 120/55 Blood Pressure 112/55 BP, HR, EF%: Reviewed QTc Review QTc: Reviewed (Previous QTc was 452) Home Meds Home Med List reviewed: Reviewed (Aspirin not ordered due to GI bleed. ) Current Meds Current Medication Order Review: Reviewed Comments Comments/Follow Ups: Patient's CBC remarkable due to anemia may need monitoring with active GI bleed, Watch renal function for possible medication dose adjustments
[2025-03-24 20:13] LABS: Campylobacter PCR Negative (Negative); Salmonella PCR Negative (Negative); Shiga Toxin PCR Negative (Negative); Shigella/Enteroinvasive Ecoli Negative (Negative)
[2025-03-24] MEDS: Acetaminophen 325 MG TAB PO (20:44)
[2025-03-25] VITALS (10 sets, daily range): BP systolic 111–150; BP diastolic 57–70; PULSE 66–74; RESP 16–18; TEMP 36–37; O2SAT 94–99
[2025-03-25 06:44] LABS: Anion Gap 8.4 mmol/L (3-11); BUN 22 mg/dL (7-18); CO2 26.6 mmol/L (21.0-32.0); CREATININE 1.4 mg/dL (0.55-1.02); Calcium 8.5 mg/dL (8.5-10.1); Chloride 107 mmol/L (98-107); Estimated GFR 37.33 (mL/min/1.73m2); Glucose 82 mg/dL (74-106); Potassium 3.6 mmol/L (3.5-5.1); Sodium 142 mmol/L (136-145)
[2025-03-25 07:15] LABS: Absolute Basophil Count 0.07 10^3/uL (0.0-0.2); Basophils % 0.8 %; HGB 8.4 g/dL (11.2-15.7); MCH 25.5 pg (27.0-33.0); Platelet Count 377 10^3/uL (130-400)
[2025-03-25 07:23] LABS: Abs Immature Grans 0.03 10^3/uL (0.0-0.06); Absolute Eosinophil Count 0.19 10^3/uL (0.0-0.7); Absolute Lymphocyte Count 1.43 10^3/uL (1.2-3.4); Absolute Monocyte Count 0.96 10^3/uL (0.1-0.8); Absolute Neutrophil Count 5.96 10^3/uL (1.2-6.7); Eosinophils % 2.2 %; HCT 27.2 % (36.0-46.0); Immature Grans % 0.3 %; Lymphocytes % 16.6 %; MCHC 30.9 % (32.0-36.0); MCV 82 fL (80-95); MPV 10.4 fL (8.0-11.0); Monocytes % 11.1 %; RDW 15.7 % (11.7-14.6); RDW-SD 47.1 fL; WBC 8.64 10^3/uL (4.4-10.8)
[2025-03-25] MEDS: amLODIPine 5 MG TAB PO (08:33)
[2025-03-25] MEDS: hydroCHLOROthiazide 12.5 MG TAB PO (08:34)
[2025-03-25] MEDS: predniSONE 1 MG TAB 2 MG PO (08:34)
[2025-03-25] MEDS: Metoprolol CR 25 MG TABCR PO (08:34)
[2025-03-25] MEDS: Losartan 50 MG TAB PO ×2 (08:34→19:43)
[2025-03-25] MEDS: Calcium 600mg/Vit D 200U TAB 2 TAB PO (08:35)
[2025-03-25] MEDS: predniSONE 5 MG TAB PO (08:35)
[2025-03-25] MEDS: Escitalopram 10 MG TAB PO (08:35)
[2025-03-25] MEDS: Cholecalciferol (Vitamin D3) 1,000 UNIT TAB 2000 UNITS PO (08:35)
[2025-03-25] MEDS: Normal Saline Flush 10 ML SYR IVP ×2 (08:36→19:43)
--- NOTE | 2025-03-25 09:07 | PDOC.CMPRO ---
Date of service: 03/25/25 Time of Service: 09:07 Care Management Progress Note Progress Note Text Progress Note Text: Ruthie was up in the bedside chair, having a clear liquid lunch, when CM met with her today. She was very pleasant. She has started her colon prep for planned colonoscopy tomorrow. Ruthie stated that she is not nervous about the test or the result, she would just like to know what she is up against. She stated that she has been through alot and feels that she can deal with this, too. Ruthie's children have been very supportive. None live nearby, but they are visiting and calling often. Ruthie stated that she has a really good group of supportive friends in the area. Discharge Potential Discharge Needs: PT Evaluation, PCP F/U Appt and Surgical F/U Appt Anticipated Barriers to Discharge: None Identified Patient/Family Education Needs: Review discharge instructions, discuss Ask Me Three Transportation: Private vehicle Plan: Ruthie is scheduled for a colonoscopy tomorrow for diagnostic testing of her cecal mass. She is expected to discharge shortly thereafter. She will likely have new services of HH RN and PT. She will f/u with her PCP and with specialists depending on her diagnosis. Ruthie will transport home in a private vehicle with one of her children. Social Determinants of Health Screening Social Determinants of health last assessed in clinic: 03/25/25 Will the Patient Participate in the Screening?: Yes Do you worry about having a steady place to live?: yes What is your living situation today?: I have housing today, but am worried about losing it Problems where you live: no known problems In the past 12 months, have you had to go without electric, gas, oil or water in your home?: no 1. Within the past 12 months, we worried whether our food would run out before we got money to buy more.: Never true 2. Within the past 12 months, the food we bought just didn't last and we didn't have money to get more.: Never true Has lack of transportation kept you from medical appointments or from doing things needed for daily living?: no Has anyone in your life made you feel unsafe or unsupported?: no How hard is it for you to pay for the very basics like food, housing, medical care, and heating? Would you say it is:: Not hard at all Do you want help finding or keeping work or a job?: I do not need or want help If for any reason you need help with day-to-day activities such as bathing, preparing meals, shopping, managing finances, etc., do you get the help you need?: I get all the help I need How often do you feel lonely or isolated from those around you?: Never Do you speak a language other than [place]ese at home?: No Does the patient want assistance with any of the above?: No Health Related Social Needs Health related social needs: housing instability, housed, with risk of homelessness (Z59.811) Health related social needs details: not applicable, since neighbor is very much attentive on her needs. Anticipated HH Services Anticipated HH Services at Discharge [facility] PT and RN Following Provider: Lance.
--- NOTE | 2025-03-25 09:29 | W.PM.PROGNOT ---
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 Surgical consult: Please read note - Colonoscopy scheduled for 03/26/25- discussed with Dr. Knox (2) Abdominal mass, right lower quadrant: Status: Acute Assessment and plan: As above (3) Anemia: Start date: 03/24/25 Start time: 17:35 Status: Chronic Assessment and plan: H&H 6.3 & 21 on admission now 8.4 & 27.2 2 units of packed red blood cells completed on 03/25 Patient does have compatibility issue CBC in AM (4) Incompatible blood transfusion: Status: Acute Assessment and plan: As above (5) Giant cell arteritis: Status: Chronic Assessment and plan: Continue daily prednisone 7 mg (6) Essential hypertension: Status: Chronic Assessment and plan: continue home beta-juan, ARB and diuretic (7) S/P TAVR (transcatheter aortic valve replacement): Status: Acute Assessment and plan: biologic valve ,continue ASA (8) On deep vein thrombosis (DVT) prophylaxis: Status: Acute Assessment and plan: SCD's Discussed with Dr. Berg Subjective Subjective Patient reports: no new complaints, feels better, tolerating liquids well, voiding w/o difficulty, flatus, bowel movement, diarrhea and other (increased WOB w/o hypoxia ); denies still having pain, blood in stool, nausea, vomiting, shortness of breath or fever Exam Narrative Exam Narrative: Alert and oriented x 4, no neurological focal deficit, S1, S2 regular, no murmur, CLBTA,abdomen , non-distended, soft and non-tender, no bladder distention, moves all 4 ext Objective Last Vital Signs Temp 36.0 C L 03/25/25 07:24 Pulse 69 03/25/25 08:29 Resp 16 03/25/25 07:24 BP 140/58 L 03/25/25 08:29 Pulse Ox 96 03/25/25 07:24 Laboratory Results - last 24 hr 03/23/25 03/24/25 03/25/25 16:15 05:50 05:38 WBC 8.64 RBC 3.30 L Hgb 8.4 L D Hct 27.2 L MCV 82 MCH 25.5 L MCHC 30.9 L RDW 15.7 H Plt Count 377 MPV 10.4 Immature Gran % 0.3 Neutrophils % 69.0 Lymphocytes % 16.6 Monocytes % 11.1 Eosinophils % 2.2 Basophils % 0.8 Nucleated RBC % 0.0 Absolute Neutrophils 5.96 Absolute Lymphocytes 1.43 Absolute Monocytes 0.96 H Absolute Eosinophils 0.19 Absolute Basophils 0.07 Sodium 142 Potassium 3.6 Chloride 107 Carbon Dioxide 26.6 Anion Gap 8.4 BUN 22 H Creatinine 1.4 H Est GFR (CKD-EPI 2020) 37.33 Glucose 82 Calcium 8.5 Stool Campylobacter PCR Negative Stool Salmonella PCR Negative Stool Shigella PCR Negative Shiga Toxin (PCR) Negative ABO/Rh O Positive Antibody Screen POSITIVE Antibody Identification Anti-E Crossmatch See Detail Time Spent with Patient Time Spent with Patient: >50 minutes Time was spent: preparing to see the patient(eg.review tests), obtaining and/or reviewing separately otained hiistory, ordering medications,tests, procedures, referring, communicating with other health nurse healthcare manager, indepentently interpreting results, counseling the patient and care coordination
--- NOTE | 2025-03-25 14:28 | W.PALPGNOTE ---
Date of service: 03/25/25 Time of Service: 14:28 Assessment and Plan Assessment and plan (1) Abdominal mass, right lower quadrant: Status: Acute (2) Advance care planning: Status: Acute Assessment and plan: Ruthie looks much better. She is not as pale. She is smiling and enjoying her company when I came in to see her. She has started her bowel prep. She is uncertain if the colonoscopy was going to be this afternoon or tomorrow. I went and I spoke to the hospitalist and the plan is for her to have a colonoscopy Saturday. I did relay this information to Ruthie She feels very comfortable with the surgery department and is looking forward to getting this behind her Subjective Subjective Interval history since last seen: Ruthie received her blood and feels much much better. She is uncertain of when her colonoscopy will be done. She is anxious to get that part behind her Exam Narrative Exam Narrative: Patient is smiling. Lungs good aeration. Heart regular. Abdomen mildly tender but good bowel sounds. Objective Last Vital Signs Temp 97.7 F 03/25/25 11:40 Pulse 70 03/25/25 11:40 Resp 16 03/25/25 11:40 BP 140/67 03/25/25 11:40 Pulse Ox 97 03/25/25 11:40 Laboratory Results - last 24 hr 03/23/25 03/24/25 03/25/25 16:15 05:50 05:38 WBC 8.64 RBC 3.30 L Hgb 8.4 L D Hct 27.2 L MCV 82 MCH 25.5 L MCHC 30.9 L RDW 15.7 H Plt Count 377 MPV 10.4 Immature Gran % 0.3 Neutrophils % 69.0 Lymphocytes % 16.6 Monocytes % 11.1 Eosinophils % 2.2 Basophils % 0.8 Nucleated RBC % 0.0 Absolute Neutrophils 5.96 Absolute Lymphocytes 1.43 Absolute Monocytes 0.96 H Absolute Eosinophils 0.19 Absolute Basophils 0.07 Sodium 142 Potassium 3.6 Chloride 107 Carbon Dioxide 26.6 Anion Gap 8.4 BUN 22 H Creatinine 1.4 H Est GFR (CKD-EPI 2020) 37.33 Glucose 82 Calcium 8.5 Stool Campylobacter PCR Negative Stool Salmonella PCR Negative Stool Shigella PCR Negative Cryptosporidium/Giardia SEE BELOW Shiga Toxin (PCR) Negative ABO/Rh O Positive Antibody Screen POSITIVE Antibody Identification Anti-E Antigen Identification E Antigen - NEGATIVE Crossmatch See Detail
--- NOTE | 2025-03-25 17:09 | CHAPLAIN ---
Zeny was up in the chair drinking the prep fluids for a colonoscopy tomorrow morning. She said her three children, who live out of the area, are all coming to visit. Her daughter is retired and can stay for a bit. Zeny was pleasant and easily engaged in a conversation. I explained my role and offered support.
--- NOTE | 2025-03-25 17:46 | NUR.NOTE ---
Nursing Note: Bowel prep completed at 1715.
[2025-03-26] VITALS (58 sets, daily range): BP systolic 111–140; BP diastolic 43–75; PULSE 65–99; RESP 17–24; TEMP 36.3–36.8; O2SAT 95–98; BMI 29.3
[2025-03-26 06:36] LABS: Abs Immature Grans 0.03 10^3/uL (0.0-0.06); Absolute Basophil Count 0.06 10^3/uL (0.0-0.2); Absolute Eosinophil Count 0.26 10^3/uL (0.0-0.7); Absolute Lymphocyte Count 1.75 10^3/uL (1.2-3.4); Absolute Monocyte Count 0.85 10^3/uL (0.1-0.8); Absolute Neutrophil Count 5.92 10^3/uL (1.2-6.7); Basophils % 0.7 %; Eosinophils % 2.9 %; HCT 29.3 % (36.0-46.0); HGB 8.8 g/dL (11.2-15.7); Immature Grans % 0.3 %; Lymphocytes % 19.7 %; MCH 24.8 pg (27.0-33.0); MCV 83 fL (80-95); MPV 10.1 fL (8.0-11.0); Monocytes % 9.6 %; Neutrophils % 66.8 %; Platelet Count 404 10^3/uL (130-400); RBC 3.55 10^6/uL (3.93-5.22); RDW 15.8 % (11.7-14.6); RDW-SD 47.8 fL; WBC 8.87 10^3/uL (4.4-10.8)
[2025-03-26 06:41] LABS: BUN 14 mg/dL (7-18); CREATININE 1.3 mg/dL (0.55-1.02); Calcium 8.7 mg/dL (8.5-10.1); Chloride 105 mmol/L (98-107); Glucose 79 mg/dL (74-106); Potassium 3.5 mmol/L (3.5-5.1); Sodium 143 mmol/L (136-145)
--- NOTE | 2025-03-26 08:54 | PDOC.CMPRO ---
Date of service: 03/26/25 Time of Service: 08:54 Care Management Progress Note Progress Note Text Progress Note Text: Ruthie was lying in bed, visiting with her daughter and son, when CM arrived. She states, she is feeling good, and is happy that she had the colonoscopy; she said she is glad it is over with. Ruthie's daughter states if she is discharged, she will drive her home and stay with her mom for a few days, while HH gets established, in the home. CM will continue to follow. Discharge Potential Discharge Needs: PT Evaluation, PCP F/U Appt and Surgical F/U Appt Anticipated Barriers to Discharge: Medical Status Patient/Family Education Needs: Review discharge instructions, discuss Ask Me Three Transportation: Private vehicle Plan: It is likely that Ruthie will be discharged home this afternoon. Ruthie underwent a colonoscopy today for diagnostic testing of her cecal mass. She will likely have new services of HH RN, PT, OT, SURFACE GRINDING MACHINE HAND. She will f/u with her PCP and with specialists depending on her diagnosis. Ruthie will transport home in a private vehicle with one of her children. Social Determinants of Health Screening Social Determinants of health last assessed in clinic: 08/25/25 Will the Patient Participate in the Screening?: Yes Do you worry about having a steady place to live?: yes What is your living situation today?: I have housing today, but am worried about losing it Problems where you live: no known problems In the past 12 months, have you had to go without electric, gas, oil or water in your home?: no 1. Within the past 12 months, we worried whether our food would run out before we got money to buy more.: Don't know/refused 2. Within the past 12 months, the food we bought just didn't last and we didn't have money to get more.: Don't know/refused Has lack of transportation kept you from medical appointments or from doing things needed for daily living?: no Has anyone in your life made you feel unsafe or unsupported?: no How hard is it for you to pay for the very basics like food, housing, medical care, and heating? Would you say it is:: Not hard at all Do you want help finding or keeping work or a job?: I do not need or want help If for any reason you need help with day-to-day activities such as bathing, preparing meals, shopping, managing finances, etc., do you get the help you need?: I get all the help I need How often do you feel lonely or isolated from those around you?: Never Do you speak a language other than Vietnamese at home?: No Does the patient want assistance with any of the above?: No Health Related Social Needs Health related social needs: housing instability, housed, with risk of homelessness (Z59.811) Health related social needs details: not applicable, since neighbor is very much attentive on her needs.
--- NOTE | 2025-03-26 08:57 | IN_ITS ---
PT Notes Visit Reasons: [facility] In[facility] Initial Evaluation Date: 03/26/2025 Referring Doctor: Shaila Ayala NP PT Orders: PT CONSULT: Safety Consult for discharge Precautions: Standard, impaired/loss of vision left eye, NPO until after colonoscopy Patient Profile/Admitting Diagnosis: Pt is 84 yo female presented to the ED with weight loss and abdominal pain. Abdominal CT angiogram was done which showed a 6.2 x 6.2 x 7.1 cm irregular wall thickening in the bases of the cecum suggestive of a neoplasm. No evidence of metastatic disease. Diverticulosis without diverticulitis. Pt scheduled for colonoscopy on 03/26/25. PMHX: Anemia (Chronic) Abdominal mass, right lower quadrant (Acute) Weight loss, abnormal (Acute) Thyroid goiter (Acute) Facial lesion (Acute) Weight loss (Acute) Diarrhea (Acute) Vitamin D deficiency (Chronic 01/19/09) Hyperlipidemia (Chronic) Giant cell arteritis (Chronic 10/27/15) Essential hypertension (Chronic 10/19/13) Chronic obstructive lung disease (Chronic 03/31/07) PFT's showing decreased FEV1 Asthma (Acute) Osteoporosis (Chronic) Physician orders for life-sustaining treatment (POLST) form indicates patient wish for [id number] status (Acute) per conversation 01/21/2020. See visit note Knee pain, right (Acute) S/P TAVR (transcatheter aortic valve replacement) (Acute) [facility] 11/17/21,Incompatible blood transfusion (Acute) Anti E antigen - need to order special blood for transfusions Sciatica of left side due to displacement of lumbar intervertebral disc (Acute) Lumbar stenosis with neurogenic claudication (Acute) Bruising (Acute) Medical History Pre-op testing Hip pain, right E. coli UTI Sepsis due to Escherichia coli Elevated troponin Hypokalemia Acute kidney injury superimposed on chronic kidney disease Shortness of breath Discharge planning issues DVT prophylaxis Acute UTI Sepsis Lumbar stenosis with neurogenic claudication MRI 06/06/21 - L3-4 herniation with severe stenosis Leg wound, left Back pain Aortic stenosis Ganglion of tendon sheath (01/11/05) History of unilateral nephrectomy Impacted cerumen Primary malignant neoplasm of lung (09/12/83) Swelling of left lower extremity (02/17/15) H/O unilateral nephrectomy left; congenital deformity Impacted cerumen Asthma 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; 1983 Lobectomy; 03/20 Neg CXR & Barium swallow Ganglion of tendon sheath 01/11/05 Ganglion cyst of R foot Left leg swelling 02/17/eck mass see US 11/01 Anxiety (08/30/15) Cataract (11/19/16) Chronic cough Insomnia (10/08/17) Mass of right side of neck (02/28/16) Right hip pain (09/06/15) Skin lesion of face (08/30/15) 4mm by 2mm left upper lip Surgical History 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 She states, she has 3 children who are supportive, but they are not local; Her children visit often and bring her groceries to fill the freezer when they do visit. Zeny reports, she has a supportive relationship with her neighbors, who help her meet her needs. Zeny states, she is no longer driving, but through the [employer] she is able to utilize [facility] transportation, for her medical appointments; Zeny's neighbor's will often bring her to the store or pick things up for her, when she ask's. Equipment Owned/DME: 4WW x3 , grab bars in the bathroom, tub seat, electric recl iner Subjective: Pt reports she has to sit on her 4WW at times to rest while cooking d/t pain in her back. She reports no longer drives. She has depth perception problems d/t loss of vision in left eye Objective: [] General Observation:awake female upright in bed using her Ipad. Mental Status: A+Ox4, cooperative able to follow instructions, agreeable to participate in assessment Pain: denies pain ROM: [] BUE: WNL BLE: WNL Strength: [] BUE: 4/5 Right Lower Extremity: grossly 4/5 impaired hamstring length Left Lower Extremity: grossly hip 4-/5 knee 4/5 ankle 4/5 impaired hamstring length Sensation: intact Bed Mobility/Transfers: [] Supine to sit Independent Sit to stand Independent Stand to sit Independent Bed to chair SBA with 4WW cues to stay with 4WW as she approaches surfaces and for brake management Gait: amb 200 ft with 4WW SBA reciprocal pattern , one stand rest. stairs: 3 4 steps? and 2 6 steps with rails SBA with reciprocal pattern Balance: [] Static Sitting: Normal Dynamic Sitting: Normal Static Standing: Normal Dynamic Standing: Good Special Tests: 4 STAGE BALANCE TEST: Feet together 30 seconds 1/2 Stance 21 seconds Tandem stance ___12_seconds Single leg stance left__11__seconds, right__8__seconds Mobility Limitations Standardized Measure [] [facility] AM-PAC 6 clicks Basic Mobility Inpatient Short Form: [] Raw Score: 23 CMS Score: 11.20% Informed Consent/Education: Patient instructed in purpose of PT consult. [id number]:Issued and instructed in BLE HEP x 10 reps as follows access code: [email or web address] supine ankle pumps, quad sets,SAQ,GS,heel slides, seated marching,LAQ, seated hip Abd/add, sit to stand without arms ,seated hamstring stretch x 30 sec , stand minisquat, heel raises, abd, marching, [id number]: functional transfers with 4WW SBA cues for brake management, transfers on off 4WW cues to place 4WW against wall then lock brakes prior to sitting Assessment: Patient is an 84 yo female who presents with clinical signs and symptoms consistent with current/admitting diagnoses that have resulted to mobility limitations, gait instability, generalized weakness, and impairment of motor control as demonstrated by the following impairment level findings: 1. Decreased strength to BLE major muscle groups 2. Impaired standing balance 3. chronic pain low back 4. Impaired functional activity tolerance Impairments are contributing to the following functional limitations: 1. Inability to safely ambulate without assistive device 2. Increase completion time for mobility ADL performance 3. Increased fall risk 4. difficulty performing stairs without AD Patient is assessed as a moderate complexity based on the following: History: 84-year-old female with impairment level findings, functional limitations, and past medical history as indicated above Examination: Demonstrable impairment in strength, balance, and mobility level with underlying impairments and functional limitations as documented above Presentation: evolving Decision Making: moderate Goals: 1. Independent HEP 2. Independent ambulation with 4WW 300 feet Plan of Care/Treatment Plan: PT evaluation and 1-2 treatment session only for functional mobility training using recommended AD and for HEP instruction. DISCHARGE RECOMMENDATIONS: Patient will benefit from home health PT services in order to progress mobility level using least restrictive assistive ambulatory device, assess home safety, identify additional equipment needs, and establish a functional maintenance program that will increase ability of patient to remain at home. TREATMENT CODE/TIME: 58071, 22661 ,[id number], [id number] Thank you for the opportunity to participate in the care of this patient. Janet Sosa PT [facility]
[2025-03-26] MEDS: Metoprolol CR 25 MG TABCR PO (08:58)
[2025-03-26] MEDS: predniSONE 5 MG TAB PO (08:58)
[2025-03-26] MEDS: Losartan 50 MG TAB PO (08:58)
[2025-03-26] MEDS: Calcium 600mg/Vit D 200U TAB 2 TAB PO (08:58)
[2025-03-26] MEDS: predniSONE 1 MG TAB 2 MG PO (08:58)
[2025-03-26] MEDS: amLODIPine 5 MG TAB PO (08:59)
[2025-03-26] MEDS: hydroCHLOROthiazide 12.5 MG TAB PO (08:59)
[2025-03-26] MEDS: Cholecalciferol (Vitamin D3) 1,000 UNIT TAB 2000 UNITS PO (08:59)
[2025-03-26] MEDS: Escitalopram 10 MG TAB PO (08:59)
[2025-03-26] MEDS: Normal Saline Flush 10 ML SYR IVP (09:00)
--- NOTE | 2025-03-26 09:46 | W.PM.PROGNOT ---
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 Surgical consult: Please read note - Colonoscopy scheduled for 03/26/25- discussed with Dr. Knox (2) Abdominal mass, right lower quadrant: Status: Acute Assessment and plan: As above (3) Anemia: Start date: 03/24/25 Start time: 17:35 Status: Chronic Assessment and plan: H&H 6.3 & 21 on admission now 8.4 & 27.2 2 units of packed red blood cells completed on 03/25 Patient does have compatibility issue CBC in AM (4) Incompatible blood transfusion: Status: Acute Assessment and plan: As above (5) Giant cell arteritis: Status: Chronic Assessment and plan: Continue daily prednisone 7 mg (6) Essential hypertension: Status: Chronic Assessment and plan: continue home beta-juan, ARB and diuretic (7) S/P TAVR (transcatheter aortic valve replacement): Status: Acute Assessment and plan: biologic valve ,continue ASA (8) On deep vein thrombosis (DVT) prophylaxis: Status: Acute Assessment and plan: SCD's Discussed with Dr. Breg Objective Last Vital Signs Temp 36.8 C 03/26/25 07:32 Pulse 75 03/26/25 07:32 Resp 24 03/26/25 07:32 BP 122/53 L 03/26/25 07:32 Pulse Ox 95 03/26/25 07:32 Laboratory Results - last 24 hr 03/23/25 03/24/25 03/26/25 16:15 05:50 06:05 WBC 8.87 RBC 3.55 L Hgb 8.8 L Hct 29.3 L MCV 83 MCH 24.8 L MCHC 30.0 L RDW 15.8 H Plt Count 404 H MPV 10.1 Immature Gran % 0.3 Neutrophils % 66.8 Lymphocytes % 19.7 Monocytes % 9.6 Eosinophils % 2.9 Basophils % 0.7 Nucleated RBC % 0.0 Absolute Neutrophils 5.92 Absolute Lymphocytes 1.75 Absolute Monocytes 0.85 H Absolute Eosinophils 0.26 Absolute Basophils 0.06 Sodium 143 Potassium 3.5 Chloride 105 Carbon Dioxide 28.0 Anion Gap 10.0 BUN 14 Creatinine 1.3 H Est GFR (CKD-EPI 2020) 40.80 Glucose 79 Calcium 8.7 Cryptosporidium/Giardia SEE BELOW Antigen Identification E Antigen - NEGATIVE
--- NOTE | 2025-03-26 11:08 | W.ANESPRE ---
General Info Date of Service Date Performed: 03/26/25 Height: 5 ft 1 in Weight: 70.5 kg Body Mass Index (BMI): 29.3 Surgical Procedure: Operation Date: 03/26/25 13:20 Proposed Procedure Side Surgeon p Colonoscopy Shady Knox MD Actual Procedure Side Surgeon p Colonoscopy Not Applicable Shady Knox MD Pre-Op Diagnosis Post-Op Diagnosis GIB Meds Allergies and Home Medications Allergies Allergy/AdvReac Type Severity Reaction Status Date / Time doxazosin Allergy Severe RASH Verified 03/23/25 15:36 nickel Allergy Severe SEVERE RASH Verified 03/23/25 15:36 lisinopril Allergy Intermediate HIVES Verified 03/23/25 15:36 Beta-Blockers AdvReac Intermediate WEAKNESS Verified 03/23/25 15:36 (Beta-Adrenergic Bloc Home Medication ?Medication ?Instructions ?Recorded calcium 600 mg (as 2 ea PO DAILY 03/13/13 carbonate)-vitamin D3 20 mcg (800 unit) tablet (Caltrate with Vitamin D3) cholecalciferol (vitamin D3) 25 2,000 unit PO DAILY 03/13/13 mcg (1,000 unit) capsule aspirin 81 mg tablet,delayed 81 mg PO HS 07/22/21 release amoxicillin 500 mg capsule 2,000 mg (4 x 500 mg) PO ONCE #8 03/13/24 caps amlodipine 5 mg tablet 5 mg PO DAILY #90 tab-caps 09/14/24 escitalopram oxalate 10 mg tablet 10 mg PO QAM #90 tab-caps 09/14/24 (Lexapro) losartan 50 mg tablet 50 mg PO BID #180 tabs 09/14/24 metoprolol succinate 25 mg See Rx Instructions .Route 09/14/24 tablet,extended release 24 hr .COMPLEX #90 tabs prednisone 5 mg tablet 5 mg PO DAILY #90 tabs 10/15/24 prednisone 1 mg tablet See Rx Instructions PO DAILY PMR 02/22/25 #270 tabs hydrochlorothiazide 12.5 mg tablet 12.5 mg PO DAILY #90 tabs 03/23/25 tramadol 25 mg tablet See Rx Instructions PO BID PRN 03/23/25 pain #28 tabs Current Visit Medications: Current Medications Generic Name Dose Route Start Last Admin Trade Name Freq PRN Reason Stop Dose Admin Acetaminophen 0 mg 03/23/25 19:12 03/24/25 20:44 Acetaminophen 325 Mg Tab PO 650 mg Q4H PRN PRN Administration Al Hydrox/Mg Hydrox/Simethicone 30 ml 03/23/25 19:12 Mylanta Suspension 30 Ml Cup PO Q2H PRN PRN Amlodipine Besylate 5 mg 03/24/25 08:30 03/26/25 08:59 Amlodipine 5 Mg Tab PO 5 mg DAILY ZHENG Administration Calcium/Vitamin D 2 tab 03/24/25 08:30 03/26/25 08:58 Calcium 600mg/Vit D 200u Tab PO 2 tab DAILY ZHENG Administration Cholecalciferol 2,000 units 03/24/25 08:30 03/26/25 08:59 Cholecalciferol (Vitamin D3) 1,000 Unit Tab PO 2,000 units DAILY [facility] Administration Docusate Sodium 100 mg 03/23/25 19:12 Docusate Sodium 100 Mg Cap PO TID PRN PRN Escitalopram Oxalate 10 mg 03/24/25 08:30 03/26/25 08:59 Escitalopram 10 Mg Tab PO 10 mg QAM ZHENG Administration Hydrochlorothiazide 12.5 mg 03/24/25 08:30 03/26/25 08:59 Hydrochlorothiazide 12.5 Mg Tab PO 12.5 mg DAILY ZHENG Administration IV Miscellaneous Supplies 1 each 03/25/25 15:15 Iv Access IV DIRECTED [facility] Losartan Potassium 50 mg 03/23/25 20:28 03/26/25 08:58 Losartan 50 Mg Tab PO 50 mg BID [facility] Administration Magnesium Hydroxide 30 ml 03/23/25 19:12 Milk Of Magnesia 30 Ml Cup PO DAILY PRN PRN Metoprolol Succinate 25 mg 03/24/25 15:00 03/26/25 08:58 Metoprolol Cr 25 Mg Tabcr PO 25 mg DAILY [facility] Administration Polyethylene Glycol 17 gm 03/23/25 19:12 Polyethylene Glycol 3350 17 Gm Packet PO DAILY PRN PRN Constipation Prednisone 5 mg 03/24/25 08:30 03/26/25 08:58 Prednisone 5 Mg Tab PO 5 mg DAILY [facility] Administration Prednisone 2 mg 03/25/25 08:30 03/26/25 08:58 Prednisone 1 Mg Tab PO 2 mg DAILY [facility] Administration Sodium Chloride 0 ml 03/23/25 15:42 Normal Saline Flush 10 Ml Syr IVP PRN PRN Sodium Chloride 0 ml 03/23/25 20:00 03/26/25 09:00 Normal Saline Flush 10 Ml Syr IVP 10 ml BID ZHENG Administration Sodium Chloride 0 ml 03/23/25 15:42 Normal Saline 10 Ml Vial IJ DIRECTED PRN PFSH Active Problems Active Problems: Problem Status Onset Code Advance care planning Acute Z71.89 On deep vein thrombosis (DVT) prophylaxis Acute Z79.899 Abnormal findings on diagnostic imaging of abdomen Acute R93.5 Anemia Chronic D64.9 Abdominal mass, right lower quadrant Acute R19.03 Weight loss, abnormal Acute R63.4 Thyroid goiter Acute E04.9 Facial lesion Acute L98.9 Weight loss Acute R63.4 Diarrhea Acute R19.7 Vitamin D deficiency Chronic 08 E55.9 Hyperlipidemia Chronic E78.5 Giant cell arteritis Chronic 10/27/15 M31.6 Essential hypertension Chronic 10/19/13 I10 Chronic obstructive lung disease Chronic 1807 J44.9 Asthma Acute J45.909 Osteoporosis Chronic M81.0 Physician orders for life-sustaining treatment (POLST) form indicates patient wish for [id number] status Acute Z66 Knee pain, right Acute M25.561 S/P TAVR (transcatheter aortic valve replacement) Acute Z95.2 Incompatible blood transfusion Acute T80.919A Sciatica of left side due to displacement of lumbar intervertebral disc Acute M51.16 Lumbar stenosis with neurogenic claudication Acute M48.062 Bruising Acute T14.8XXA Medical History Medical History Pre-op testing Hip pain, right E. coli UTI Sepsis due to Escherichia coli Elevated troponin Hypokalemia Acute kidney injury superimposed on chronic kidney disease Shortness of breath Discharge planning issues DVT prophylaxis Acute UTI Sepsis Lumbar stenosis with neurogenic claudication MRI 06/06/21 - L3-4 herniation with severe stenosis Leg wound, left Back pain Aortic stenosis Ganglion of tendon sheath (01/11/05) History of unilateral nephrectomy Impacted cerumen Primary malignant neoplasm of lung (09/12/83) Swelling of left lower extremity (02/17/15) H/O unilateral nephrectomy left; congenital deformity Impacted cerumen Asthma 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; 1983 Lobectomy; 03/20 Neg CXR & Barium swallow Ganglion of tendon sheath 01/11/05 Ganglion cyst of R foot Left leg swelling 02/17/15 Neck mass see US 11/01 Anxiety (08/30/15) Cataract (11/19/16) Chronic cough Insomnia (10/08/17) Mass of right side of neck (02/28/16) Right hip pain (09/06/15) Skin lesion of face (08/30/15) 4mm by 2mm left upper lip Surgical History Surgical History Status post cholecystectomy Status post lobectomy of lung S/P cholecystectomy S/P lobectomy of lung 10/14/83 left upper lobectomy; 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 [place] Smoking/Tobacco Use Status: Former Tobacco Use Passive smoking exposure: No Second hand exposure: Yes Alcohol Alcohol Intake: current Alcohol intake frequency: holidays/special occasions only Alcohol type: wine Substance Use Substance use: Never Substance use type: does not use Vital Signs and Lab Results Vital Signs Most Recent Vital Signs in EMR: Most Recent Vital Signs Temp Pulse Resp BP Pulse Ox 36.8 C 75 24 122/53 L 95 03/26/25 07:32 03/26/25 07:32 03/26/25 07:32 03/26/25 07:32 03/26/25 07:32 Lab Results 03/26/25 06:05 03/26/25 06:05 Blood Type / Crossmatch: Antibody Screen POSITIVE 03/23/25 Crossmatch See Detail 03/23/25 Complete Blood Count: WBC, (4.4-10.8) 8.87 10^3/uL Today, 06:05 RBC, (3.93-5.22) 3.55 10^6/uL L Today, 06:05 Hgb, (11.2-15.7) 8.8 g/dL L Today, 06:05 Hct, (36.0-46.0) 29.3 % L Today, 06:05 Plt Count, (130-400) 404 10^3/uL H Today, 06:05 Complete Metabolic Panel: Sodium, (136-145) 143 mmol/L Today, 06:05 Potassium, (3.5-5.1) 3.5 mmol/L Today, 06:05 Chloride, (98-107) 105 mmol/L Today, 06:05 Carbon Dioxide, (21.0-32.0) 28.0 mmol/L Today, 06:05 BUN, (7-18) 14 mg/dL Today, 06:05 Creatinine, (0.55-1.02) 1.3 mg/dL H Today, 06:05 Est GFR (CKD-EPI 2020), (mL/min/1.73m2) 40.80 Today, 06:05 Magnesium, (1.8-2.4) 2.1 mg/dL 03/23/25, 16:15 Calcium, (8.5-10.1) 8.7 mg/dL Today, 06:05 Albumin, (3.4-5.0) 3.0 g/dL L 03/24/25, 06:04 Glucose, (74-106) 79 mg/dL Today, 06:05 Hemoglobin A1c, (<5.7) 6.1 % H 03/23/25, 10:00 Liver Function Panel: ALT, (14-59) 17 U/L 03/24/25, 06:04 AST, (15-37) 12 U/L L 03/24/25, 06:04 Coagulation Panel: INR, (0.9-1.1) 1.3 H 03/23/25, 16:15 PT, (9.1-11.1) 12.5 sec H 03/23/25, 16:15 Pancreas Panel: Lipase, (<78) 26 U/L 03/23/25, 16:15 Thyroid Panel: TSH, (0.36-3.74) 1.37 uIU/mL 03/23/25, 10:00 Imaging and Studies Imaging and Studies Study information below may be from another EMR and interpreted by another provider. Please see original notes in EMR for more complete details. EKG Summary: 01/21/22: E[place] [facility] [place]R Echocardiogram Summary: 01/19/22: ([facility]): Post TAVR, EF 68%, peak gradient across transcatheter valve 20mmHg, mean gradient 10mmHg, No other significant valvular lesions Anesthesia Assessment and Plan Anesthesia History Personal History: No History of Anesthesia Complications Family History: No Family History of Anesthesia Complications Exercise Tolerance Exercise Tolerance: Metabolic Equivalents<4 Cardiac & Pulmonary Exam Cardiac Exam: Heart Murmur Present Pulmonary Exam: Clear Bilateral Breath Sounds Implantable Cardiac Device Does patient have a Pacemaker or an ICD?: No Airway Exam Known Difficult Airway: No Mallampati Class: 2 Mouth Opening: Normal (> 3cm) Thyromental Distance: Greater than 3 cm Neck Range of Motion: Full ROM Neck Circumference: Normal Teeth Condition: Normal Dentition (Bottom) and Removable Dentures/Plates Upper ASA Classification ASA Score: ASA 4 Emergency Case?: No NPO Status NPO Status: NPO Clears >2 hours, Solids >8 hours Anesthesia Plan Resuscitation Status: DNR Fully Suspended During Perioperative Period Anesthesia Technique: General Anesthesia Airway Planned: Natural Airway Monitors Used: Standard Monitors
--- NOTE | 2025-03-26 11:15 | W.PM.PROGNOT ---
Date of Service Date of service: 03/26/25 Time of Service: 11:15 Assessment and Plan Assessment and plan (1) Abnormal findings on diagnostic imaging of abdomen: Status: Acute Assessment and plan: I reviewed the findings of the CT scan with Zeny and her concerns that the abnormality in the cecum might represent a colon cancer. I explained to the plan for colonoscopy today, and tissue diagnosis. I think Zeny has a good understanding of this, and she appreciates the risks and the benefits of the procedures. She is able to provide consent, and we can certainly proceed with colonoscopy today as soon as an operating room is available. Subjective Subjective Interval history since last seen: Zeny is doing okay this morning, she is a little bit tired, but seems to tolerated the bowel prep well. Exam GI Other: Abdomen is soft and nondistended. She is not tender. Objective Last Vital Signs Temp 98.2 F 03/26/25 07:32 Pulse 75 03/26/25 07:32 Resp 24 03/26/25 07:32 BP 122/53 L 03/26/25 07:32 Pulse Ox 95 03/26/25 07:32 Laboratory Results - last 24 hr 03/23/25 03/24/25 03/26/25 16:15 05:50 06:05 WBC 8.87 RBC 3.55 L Hgb 8.8 L Hct 29.3 L MCV 83 MCH 24.8 L MCHC 30.0 L RDW 15.8 H Plt Count 404 H MPV 10.1 Immature Gran % 0.3 Neutrophils % 66.8 Lymphocytes % 19.7 Monocytes % 9.6 Eosinophils % 2.9 Basophils % 0.7 Nucleated RBC % 0.0 Absolute Neutrophils 5.92 Absolute Lymphocytes 1.75 Absolute Monocytes 0.85 H Absolute Eosinophils 0.26 Absolute Basophils 0.06 Sodium 143 Potassium 3.5 Chloride 105 Carbon Dioxide 28.0 Anion Gap 10.0 BUN 14 Creatinine 1.3 H Est GFR (CKD-EPI 2020) 40.80 Glucose 79 Calcium 8.7 Cryptosporidium/Giardia SEE BELOW Antigen Identification E Antigen - NEGATIVE Time Spent with Patient Time Spent with Patient: 25-34 minutes Time was spent: preparing to see the patient(eg.review tests), indepentently interpreting results, counseling the patient and care coordination
[2025-03-26] MEDS: Lactated Ringers 1,000 ML 30 ML IV (12:42)
--- NOTE | 2025-03-26 12:56 | TELEFU_ITS ---
Date of service: 03/26/25 Time of Service: 12:56 Nutrition Note NOTE: Zeny currently NPO for bowel prep - colonoscopy today for further dx RLQ mass. Pt weight hx reveals as much as a 9kg weight loss over the last 14 months. Anemia a concern with balck stools noted by pt over at least 2 months. Hx of vitamin D deficiency - ordered for this. A1c 256.1% - consistent with prediabetes dx. 79 fasting glucose today. Home med include steroids which will contribute to this higher average. Per morning clinical meeting, pt may dishcharge post colonoscopy if feeling well and will continue with outpatient services. Pt at increased nutrition risk with wt loss noted above - albumin and total protein labs low on 03/24. Wll offer high protein ONS once diet advances to support intake. Pt informed of outpatient nutrition services should she want some additional support in managin g weight loss and ensuring adequate intake. Time Spent in Nutritional Counseling and Treatment: 5 min
--- NOTE | 2025-03-26 13:02 | NUR.NOTE ---
Nursing Note: Documentation by Anny Sheets, student CERTIFIED HYPERBARIC TECHNOLOGIST reviewed and I agree with her assessment.
--- NOTE | 2025-03-26 13:32 | W.COLOREPORT ---
Date of service: 03/26/25 Time of Service: 13:32 Colonoscopy Report Date of procedure: 03/26/25 Pre-op diagnosis general: Cecal tumor Post-op diagnosis procedure note: same Procedure: Colonoscopy with biopsy and polypectomies Surgeon: Shady Knox Anesthesia Type: General:No Airway Estimated blood loss (mL): 10 Pathology: other (Cold forcep biopsies of cecal tumor, 0.25 cm polyps at 75 cm x 2 (single specimen) 0.5 cm flat polyp at 65 cm, 0.5 cm flat polyp at 45 cm, 0.25 cm flat polyp at 30 cm) Complications: None Disposition: PACU Indications: Zeny is an 84-year-old woman who was admitted to the hospital with anemia. CT scan suggested a mass in the cecum or ascending colon concerning for colon cancer. Prep: Miralax/Dulcolax Procedure Start Time: 12:52 Procedure End Time: 13:22 Retraction Time: 19 Findings: Large friable mass in the cecum consistent with malignancy. 0.25 cm polyps at 75 cm x 2 (single specimen) 0.5 cm flat polyp at 65 cm, 0.5 cm flat polyp at 45 cm, 0.25 cm flat polyp at 30 cm Procedure Description: After the induction of anesthesia, and with the patient in left lateral decubitus position, I began by performing an external anorectal exam.? Perineum and skin were normal, as was the anal verge.? There was no evidence of external hemorrhoids.? Next, I performed a digital rectal exam.? I did not appreciate any abnormal findings.? Next, I advanced a colonoscope into the rectal vault.? I performed retroflexion.? This appeared normal.? Using irrigation, I then advanced the colonoscope beyond the rectal folds and into the sigmoid colon before advancing towards the cecum.? There is extensive sigmoid diverticulosis.? As the scope was advanced through the ascending colon towards the cecum, it was obvious that there was a large friable cecal mass adjacent to the ileocecal valve. Multiple biopsies of this were performed with cold forceps. This is certainly not anything that is amenable to colonoscopic resection.? I then began withdrawing the colonoscope using repeated irrigation as necessary for full evaluation of the colonic mucosa. ?Around 75 cm from the anal verge were 2 polyps, just a few millimeters away from 1 another. These were both flat, and approximately 0.25 centimeters each. These were removed with cold forceps with minimal bleeding, and sent as a single specimen. Another polyp was found around 65 cm from the anal verge this was about 0.5 cm. This was mostly flat, and this was completely removed with cold snare polypectomy. Similarly, another 0.5 cm flat polyp was found at 45 cm. This was also removed with cold snare polypectomy. Again seen was extensive left-sided sigmoid diverticulosis. At 30 cm from the anal verge was another polyp. This was about 0.25 cm, and mostly flat. This was removed with cold forceps. Once the scope was withdrawn to the level of the rectum, great care was taken to examine portions of the rectal folds.? Finally, the scope was withdrawn and the patient was brought to the same-day surgery recovery unit as the anesthetic wore off. ?The findings and instructions were shared with the patient prior to discharge. Clarkia Bowel Prep Clarkia Bowel Prep Right Colon: 2 Left Colon: 2 Transverse Colon: 2 Total Score: 6
--- NOTE | 2025-03-26 14:01 | NUR.NOTE ---
Nursing Note: Pt back from PACU/colonoscopy at 13:55. Pt's IV went bad enroute and PACU placed a 22g in the left thumb. She received 300 ml LR and biopsies were taken. Pt is A&O x4.
--- NOTE | 2025-03-26 15:19 | W.PM.DS.N ---
Date of service: 03/26/25 Time of Service: 15:19 DS: Diagnosis Discharge Diagnosis (1) Abnormal findings on diagnostic imaging of abdomen: Status: Acute Discharge Plan Disposition Patient Disposition: Home W/Home Health Services Condition: Improving Discharge Details Reason For Visit: GIB Admit Date/Time: 03/23/25 19:12 Admit Provider: Dc Contreras Attending Provider: Dc Contreras [facility] Hospital Course: This 84-year-old female patient with a past medical hisotory of bioprosthetic aortic valve replacement, left nephrectomy with chronic kidney disease, hypertension, asthma, history of malignant neoplasm of lung with a left lobectomy in 84, aortic stenosis, giant cell arteritis and anti-E antigen in blood presented to the ER on 03/23/25 with a chief complaint of lightheadedness, approximately 15 pound weight loss over the last 2 to 3 months, lower abdominal pain, diarrhea which has been ongoing intermittently for the last 2 to 3 months and intermittent GI bleed. H&H was 6 &23 s/p blood draw at her PCP this AM. CT scan showed a 6.2 x 6.2 x 7.1 cm irregular thick wall mass in the base of the cecum suggestive of a neoplasm.Chemistry was unremarkable. With her history of anit-E antigen, the 2 units of PRBC's ordered by the ED provider were delayed. The patient was admitted to the medical surgical floor under the hospitalist service for severe anemia and surgical consultation for diagnostic endoscopy. Surgical consult completed and colonoscopy with biopsy done s/p H&H stabilization after PRBC's transfusions. H&H remained stable at 8.8 & 29.3. The patient remains hemodynamically stable and tolerates enteral intake. The patient will be discharged home with home health nursing, physical therapy, occupational therapy and medical records coder. Follow- up with PCP within 7 days of discharge please . Recommendation for PCP follow-up: Consider H&H follow-up Follow-up on biospy results Discussed with Dr. Berg Home Meds and New Rx's Prescriptions: Continued amlodipine 5 mg tablet 5 mg PO DAILY Qty: 90 3RF escitalopram oxalate [Lexapro] 10 mg tablet 10 mg PO QAM Qty: 90 4RF losartan 50 mg tablet 50 mg PO BID Qty: 180 3RF metoprolol succinate 25 mg tablet extended release 24 hr See Rx Instructions .ROUTE .COMPLEX Qty: 90 4RF Dose Instruction: TAKE ONE TABLET BY MOUTH EVERY DAY Rx Instructions: TAKE ONE TABLET BY MOUTH EVERY DAY hydrochlorothiazide 12.5 mg tablet 12.5 mg PO DAILY Qty: 90 4RF Patient Comments: TAKE ONE TABLET BY MOUTH EVERY DAY tramadol 25 mg tablet See Rx Instructions PO BID PRN (Reason: pain) Qty: 28 4RF Rx Instructions: 1-2 tabs orally twice a day PRN; cholecalciferol (vitamin D3) 1,000 UNIT capsule 2,000 unit PO DAILY calcium carbonate-vitamin D3 [Caltrate with Vitamin D3] 1 EACH tablet 2 ea PO DAILY amoxicillin 500 mg capsule 2,000 mg PO ONCE Qty: 8 3RF prednisone 5 mg tablet 5 mg PO DAILY Qty: 90 2RF prednisone 1 mg tablet See Rx Instructions PO DAILY Qty: 270 2RF Rx Instructions: 1-3 tabs orally daily; tapering dose aspirin 81 mg tablet,delayed release (DR/EC) 81 mg PO HS Discharge Instructions Referrals: Zoey Lucas MD, [place] [Primary Care Provider, Medicine] Referral Note: Follow-up with 7 days of discharge please Activity:: Activity as Tolerated Equipment/Supplies:: No Equipment Needed Diet:: heart healthy Discharge Orders Discharge Orders: Discharge Order (Routine); Ordered 03/26/25 Ordered By: Shaila Ayala DS: Summary Time Spent with Patient providing and/or coordinating discharge services: Greater than 30 minutes Status at Discharge Functional status at discharge: independent ambulation Overall status at discharge: patient is progressing back to baseline Mental Status: mental status grossly normal Speech and Movement: speech and movement normal Mood: congruent mood Affect: normal affect Quality:SDOH Health Related Social Needs: Health related social needs risk of homeless Health related social needs details not applicable, since neighbor is very much attentive on her needs. Health related social needs details: not applicable, since neighbor is very much attentive on her needs. Exam Narrative Exam Narrative: Alert and oriented x 4, no neurological focal deficit, S1, S2 regular, no murmur, CLBTA,abdomen , non-distended, soft and non-tender, no bladder distention, moves all 4 ext Psych Mental Status: mental status grossly normal Speech and Movement: speech and movement normal Mood: congruent mood Affect: normal affect DS: Data Vitals/I&O Vitals and I&O: Vital Signs Temperature 36.6 C 03/26/25 13:59 Temperature Source Temporal Artery Scan 03/26/25 13:59 Pulse 79 03/26/25 13:59 Pulse Rhythm Irregular 03/23/25 20:49 Pulse 76 03/26/25 13:45 Respiratory Rate 20 03/26/25 13:59 Respiratory Effort Normal, Non-Labored 03/23/25 20:49 Respiratory Depth Normal 03/23/25 20:49 Respiratory Pattern Normal 03/23/25 20:49 Blood Pressure 140/62 03/26/25 13:59 Blood Pressure Mean 88 03/26/25 13:59 Blood Pressure Position Sitting 03/23/25 15:32 Pulse Oximetry 96 03/26/25 13:59 Respiratory End-tidal CO2 29 03/26/25 13:31 Oxygen Delivery Method Room Air 03/26/25 13:59 Oxygen Flow Rate 0 03/26/25 13:59 Pain Level 1 03/26/25 13:38 Comment RN notified 03/26/25 07:32 Intake & Output 03/25/25 03/26/25 03/26/25 23:59 11:59 23:59 Intake Total 265 / 615 300 / 300 Output Total 800 / 1100 125 / 125 Balance -535 / -485 -125 / 175 300 / 175 Weight 70.5 kg Intake: IV 265 / 265 300 / 300 Output: Urine 600 / 900 125 / 125 Stool 200 / 200 Other: Urine Color Yellow Yellow Urine Appearance Clear Comment unable to visualize, mixed with liquid stool pt voided, was not able to measure - Melvin Monfette Stool Occult Blood Positive Stool Size Small Stool Characteristics Liquid Brown Bloody Emesis Description None Data Completed and Pending Labs on day of discharge: Labs from last 24 hours 03/26/25 06:05 WBC 8.87 RBC 3.55 L Hgb 8.8 L Hct 29.3 L MCV 83 MCH 24.8 L MCHC 30.0 L RDW 15.8 H Plt Count 404 H MPV 10.1 Immature Gran % 0.3 Neutrophils % 66.8 Lymphocytes % 19.7 Monocytes % 9.6 Eosinophils % 2.9 Basophils % 0.7 Nucleated RBC % 0.0 Absolute Neutrophils 5.92 Absolute Lymphocytes 1.75 Absolute Monocytes 0.85 H Absolute Eosinophils 0.26 Absolute Basophils 0.06 Sodium 143 Potassium 3.5 Chloride 105 Carbon Dioxide 28.0 Anion Gap 10.0 BUN 14 Creatinine 1.3 H Est GFR (CKD-EPI 2020) 40.80 Glucose 79 Calcium 8.7 PFSH All Active Problems (Updated 03/26/25 @ 11:20 by Shaila Ayala APRN) Advance care planning (Acute) On deep vein thrombosis (DVT) prophylaxis (Acute) Abnormal findings on diagnostic imaging of abdomen (Acute) Anemia (Chronic) Abdominal mass, right lower quadrant (Acute) Weight loss, abnormal (Acute) Thyroid goiter (Acute) Facial lesion (Acute) Weight loss (Acute) Diarrhea (Acute) Vitamin D deficiency (Chronic 01/19/09) Hyperlipidemia (Chronic) Giant cell arteritis (Chronic 10/27/15) Essential hypertension (Chronic 10/19/13) Chronic obstructive lung disease (Chronic 03/31/07) PFT's showing decreased FEV1 Asthma (Acute) Osteoporosis (Chronic) Physician orders for life-sustaining treatment (POLST) form indicates patient wish for [id number]-[id number]-[id number] status (Acute) per conversation 01/21/2020. See visit note Knee pain, right (Acute) S/P TAVR (transcatheter aortic valve replacement) (Acute) [facility] 11/17/21, Incompatible blood transfusion (Acute) Anti E antigen - need to order special blood for transfusions Sciatica of left side due to displacement of lumbar intervertebral disc (Acute) Lumbar stenosis with neurogenic claudication (Acute) Bruising (Acute) Medical History Pre-op testing Hip pain, right E. coli UTI Sepsis due to Escherichia coli Elevated troponin Hypokalemia Acute kidney injury superimposed on chronic kidney disease Shortness of breath Discharge planning issues DVT prophylaxis Acute UTI Sepsis Lumbar stenosis with neurogenic claudication MRI 06/06/21 - L3-4 herniation with severe stenosis Leg wound, left Back pain Aortic stenosis Ganglion of tendon sheath (01/11/05) History of unilateral nephrectomy Impacted cerumen Primary malignant neoplasm of lung (09/12/83) Swelling of left lower extremity (02/17/15) H/O unilateral nephrectomy left; congenital deformity Impacted cerumen Asthma 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; 1984 Lobectomy; 03/20 Neg CXR & Barium swallow Ganglion of tendon sheath 01/11/05 Ganglion cyst of R foot Left leg swelling 02/17/15 Neck mass see US 11/01 Anxiety (08/30/15) Cataract (11/19/16) Chronic cough Insomnia (10/08/17) Mass of right side of neck (02/28/16) Right hip pain (09/06/15) Skin lesion of face (08/30/15) 4mm by 2mm left upper lip Surgical History Status post cholecystectomy Status post lobectomy of lung S/P cholecystectomy S/P lobectomy of lung 10/14/83 left upper lobectomy; 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 Daughter No problems noted. Social History Smoking/Tobacco Use Status: Former Tobacco Use Quit Date: 10/14/83 Tobacco: How many years used: 15 Quit status: quit date established Second Hand Exposure: Yes Smoking risk assessment performed?: Yes Alcohol Intake: current Alcohol Intake frequency: holidays/special occasions only Alcohol type: wine Drug use: Never Substance use type: does not use Adopted: No Caregiver/Support person: No Foster care: No Household members: other Details: grandson Housing: house Number of Children: 3 number of grandchildren: 4 Communication Needs: None Do you need help understanding health information?: Rarely Pets and animals: No Sexually active: No Do you think of yourself as: straight/heterosexual Current gender identity: female What is your relationship status?: How often do you talk on the phone with friends or family?: three or more times per week How often do you get together with friends or relatives?: three or more times per week How often do you attend adventism or voodoo services?: 4 or more times per year Do you belong to any clubs or organized social groups?: yes Panel score (0-1 are the most socially isolated patients): 3 What type of physical activity do you participate in: walking Duration: 15-30 minutes/day Frequency: daily [place]/Mormonism: Caodaism Special [place] needs: No Agree to transfusion: Yes Seatbelt use: always Drive intox or ride w/intox driver/guide: No Working smoke detector in home: Yes Carbon monox detector in home: Yes Firearms in home: Yes Firearms unloaded and locked: Yes Do you feel safe at home: Yes Do you feel safe in your relationship?: Yes Victim of physical abuse: No Victim of emotional abuse: No Victim of sexual abuse: No Would you like helpful sources: No Time Spent with Patient Time Spent with Patient: 70-84 minutes4 Time was spent: preparing to see the patient(eg.review tests), obtaining and/or reviewing separately otained hiistory, ordering medications,tests, procedures, referring, communicating with other health dog day care attendant, indepentently interpreting results, counseling the patient and care coordination
--- NOTE | 2025-03-26 15:23 | PDOC.HHF2F_ITS ---
Home Health Referral Home Health Orders Clinical synopsis of why skilled professionals are needed: This 84-year-old female patient with a past medical hisotory of bioprosthetic aortic valve replacement, left nephrectomy with chronic kidney disease, hypertension, asthma, history of malignant neoplasm of lung with a left lobectomy in 84, aortic stenosis, giant cell arteritis and anti-E antigen in blood presented to the ER on 03/23/25 with a chief complaint of lightheadedness, approximately 15 pound weight loss over the last 2 to 3 months, lower abdominal pain, diarrhea which has been ongoing intermittently for the last 2 to 3 months and intermittent GI bleed. H&H was 6 &23 s/p blood draw at her PCP this AM. CT scan showed a 6.2 x 6.2 x 7.1 cm irregular thick wall mass in the base of the cecum suggestive of a neoplasm.Chemistry was unremarkable. With her history of anit-E antigen, the 2 units of PRBC's ordered by the ED provider were delayed. The patient was admitted to the medical surgical floor under the hospitalist service for severe anemia and surgical consultation for diagnostic endoscopy. Surgical consult completed and colonoscopy with biopsy done s/p H&H stabilization after PRBC's transfusions. H&H remained stable at 8.8 & 29.3. The patient remains hemodynamically stable and tolerates enteral intake. The patient will be discharged home with home health nursing, physical therapy, occupational therapy and medical billing and coding instructor. Follow- up with PCP within 7 days of discharge please . Recommendation for PCP follow-up: Consider H&H follow-up Follow-up on biopsy results Discussed with Dr. Berg Registered Nurse: Check all that apply Instruct on new or changed medication(s)/assess compliance: Ordered Instruct on, and maintenance of, urinary device: Ordered Instruct on ostomy care: Ordered Encounter Date and Reason: I certify that a FTF encounter for this patient was performed on March 26, 2025 and that such encounter was related to the primary reason the patient requires home health services. The encounter was conducted in the following manner: * By me as the certifying physician, MACHINE SLAT BASKET MAKER, PA or * By an inpatient physician, MACHINE SLAT BASKET MAKER or PA during an inpatient stay who communicated findings to me, Certification And Authentication I certify that I composed the above information based on my clinical judgment relating to this patient's medical condition and, if applicable, clinical findings communicated to me by the NPP or inpatient physician who performed the FTF encounter. Name of Provider that will be monitoring home health services: Zoey Lucas
== END 2025-03-26 16:04 | disposition home health service (06) | DRG 376 ==
LOC: ER 20:14 → MS 03-24 06:47
PROVIDERS: Surgery; Admitting Provider Hospitalist; Emergency Provider Registered Nurse Emergency; PCP Family Medicine; Responsible Provider Nurse Practitioner Acute Care; Visit Provider Hospitalist
PROC: 0DJD8ZZ Inspection of Lower Intestinal Tract, Via Natural or Artificial Opening Endoscopic (ICD-10-PCS; CPT 45378; principal; 2025-03-26 13:15)
DX: R19.7 Diarrhea, unspecified (principal); D64.9 Anemia, unspecified; M31.6 Other giant cell arteritis; R63.4 Abnormal weight loss; Z79.899 Other long term (current) drug therapy; C18.0 Malignant neoplasm of cecum; E04.9 Nontoxic goiter, unspecified; E55.9 Vitamin D deficiency, unspecified; E78.5 Hyperlipidemia, unspecified; J44.9 Chronic obstructive pulmonary disease, unspecified; M81.0 Age-related osteoporosis without current pathological fracture; M48.062 Spinal stenosis, lumbar region with neurogenic claudication; N18.9 Chronic kidney disease, unspecified; I12.9 Hypertensive chronic kidney disease with stage 1 through stage 4 chronic kidney disease, or unspecified chronic kidney disease; Z66 Do not resuscitate; Z90.2 Acquired absence of lung [part of]; Z85.118 Personal history of other malignant neoplasm of bronchus and lung; Z79.52 Long term (current) use of systemic steroids; Z87.891 Personal history of nicotine dependence; Z90.5 Acquired absence of kidney; Z95.3 Presence of xenogenic heart valve; D12.4 Benign neoplasm of descending colon; D12.5 Benign neoplasm of sigmoid colon
CPT/HCPCS: 45385; 45380; 00123; 36415; 80048; 80053; 83690; 85027; 86850; 86900; 86901; 86920; 87015; 87269; 87272; 87505; 88305; 96360; 96361; 97110; 97162; 97530; 99222; 99232; 99285; 74174; 81003; 83735; 85025; 85610; 86870; 86902; 99233; 99239; J2704; J3490; J7512; P9016

== ENCOUNTER 2025-04-07 09:24 | Inpatient (IN) | payer MEDICARE, BC, SELFPAY ==
[2025-04-07] VITALS (59 sets, daily range): BP systolic 94–171; BP diastolic 42–76; PULSE 80–99; RESP 15–30; TEMP 36–37; O2SAT 95–99
[2025-04-07 09:58] LABS: Abs Immature Grans 0.09 10^3/uL (0.0-0.06); HCT 24.3 % (36.0-46.0); HGB 7.3 g/dL (11.2-15.7); Immature Grans % 0.7 %; MCH 25.3 pg (27.0-33.0); MCHC 30.0 % (32.0-36.0); MCV 84 fL (80-95); MPV 10.3 fL (8.0-11.0); Platelet Count 364 10^3/uL (130-400); RBC 2.89 10^6/uL (3.93-5.22); RDW 16.7 % (11.7-14.6); RDW-SD 51.5 fL; WBC 12.11 10^3/uL (4.4-10.8)
[2025-04-07] MEDS: Acetaminophen 325 MG TAB 650 MG PO ×2 (10:11→23:30)
[2025-04-07 10:13] LABS: INR 1.3 (0.9-1.1); PTT Activated 23.3 sec (20.6-30.2); Prothrombin Time 12.6 sec (9.1-11.1)
[2025-04-07 10:22] LABS: ALT 21 U/L (14-59); AST 12 U/L (15-37); Albumin 2.9 g/dL (3.4-5.0); Alkaline Phosphatase 55 U/L (46-116); Anion Gap 12.0 mmol/L (3-11); BUN 37 mg/dL (7-18); Bilirubin, Total 0.5 mg/dL (0.2-1.0); CO2 25.0 mmol/L (21.0-32.0); Calcium 9.0 mg/dL (8.5-10.1); Chloride 106 mmol/L (98-107); Estimated GFR 34.36 (mL/min/1.73m2); Glucose 97 mg/dL (74-106); Lipase 34 U/L (<78); Magnesium 2.0 mg/dL (1.8-2.4); Potassium 3.5 mmol/L (3.5-5.1); Sodium 143 mmol/L (136-145); Total Protein 6.2 g/dL (6.4-8.2)
[2025-04-07 10:26] LABS: Hypochromasia 1+
[2025-04-07 10:27] LABS: Ovalocytes 2+; Poikilocytes 1+
--- NOTE | 2025-04-07 10:43 | W.ED.GENAD ---
Discharge Plan Disposition Patient Disposition: Admit to [facility] Condition: Stable Discharge Details Clinical Impression: GI bleeding Admit Date/Time: 04/07/25 12:25 Admit Provider: Ravi Jaramillo Attending Provider: Ravi Jaramillo Primary Care Provider: Zoey Lucas ED Provider: John Hameed HPI General Date/Time Provider Initiated Documentation: 04/07/25 09:28. HPI Narrative: 84 year-old female presents to ED today by EMS with a chief complaint of 3-4x bloody stools since 199, recent biopsy of cecal tumor after presenting with one month of bloody diarrhea requiring transfusion- blood had to come from outside facility due to Anti-E Ab. Quality described as feels generally weak, no radiation to hematemesis, coffee-ground emesis, chest pain, shortness of breath, abdominal pain, nausea/vomiting. Severity is described as severe for amount of red filling toilet bowl. Palliating factors include nothing specific attempted. Provoking factors include nothing specific. Events leading up to the incident/Associated Symptoms: Patient is now DNI/DNR. Patient not anticoagulated. Related Data Home Medications ?Medication ?Instructions ?Recorded ?Confirmed calcium 600 mg (as 2 ea PO DAILY 03/13/13 04/07/25 carbonate)-vitamin D3 20 mcg (800 unit) tablet (Caltrate with Vitamin D3) cholecalciferol (vitamin D3) 25 2,000 unit PO DAILY 03/13/13 04/07/25 mcg (1,000 unit) capsule aspirin 81 mg tablet,delayed 81 mg PO HS 07/22/21 04/07/25 release amoxicillin 500 mg capsule 2,000 mg (4 x 500 mg) PO ONCE #8 03/13/24 04/07/25 caps amlodipine 5 mg tablet 5 mg PO DAILY #90 tab-caps 09/14/24 04/07/25 escitalopram oxalate 10 mg tablet 10 mg PO QAM #90 tab-caps 09/14/24 04/07/25 (Lexapro) losartan 50 mg tablet 50 mg PO BID #180 tabs 09/14/24 04/07/25 metoprolol succinate 25 mg See Rx Instructions .Route 09/14/24 04/07/25 tablet,extended release 24 hr .COMPLEX #90 tabs tramadol 25 mg tablet See Rx Instructions PO BID PRN 03/23/25 04/07/25 pain #28 tabs hydrochlorothiazide 25 mg tablet 25 mg PO DAILY #90 tabs 04/01/25 04/07/25 prednisone 5 mg tablet 7 mg PO DAILY 04/07/25 04/07/25 Previous Rx's ?Medication ?Instructions ?Recorded amoxicillin 500 mg capsule 2,000 mg (4 x 500 mg) PO ONCE #8 03/13/24 caps amlodipine 5 mg tablet 5 mg PO DAILY #90 tab-caps 09/14/24 escitalopram oxalate 10 mg tablet 10 mg PO QAM #90 tab-caps 09/14/24 (Lexapro) losartan 50 mg tablet 50 mg PO BID #180 tabs 09/14/24 metoprolol succinate 25 mg See Rx Instructions .Route 09/14/24 tablet,extended release 24 hr .COMPLEX #90 tabs tramadol 25 mg tablet See Rx Instructions PO BID PRN 03/23/25 pain #28 tabs hydrochlorothiazide 25 mg tablet 25 mg PO DAILY #90 tabs 04/01/25 Allergies Allergy/AdvReac Type Severity Reaction Status Date / Time doxazosin Allergy Severe RASH Verified 04/07/25 09:37 nickel Allergy Severe SEVERE RASH Verified 04/07/25 09:37 lisinopril Allergy Intermediate HIVES Verified 04/07/25 09:37 Beta-Blockers AdvReac Intermediate WEAKNESS Verified 04/07/25 09:37 (Beta-Adrenergic Bloc General Stated Complaint: GI Bleed KARIME: 3 Review of Systems All systems reviewed & are unremarkable except as noted in HPI and below Exam Narrative Exam Narrative: GENERAL APPEARANCE: Well-nourished, non-toxic, awake and alert, atraumatic, no acute distress. SKIN: Warm, pink, dry, intact, without rashes/lesions/ulcerations. HEAD: Normocephalic, atraumatic, normal hair distribution for gender/age. EYES: Normal conjunctiva, no exudates on lids/lashes. ENT: Nares patent, no circumoral cyanosis, no facial swelling NECK: Supple, trachea midline, painless cervical ROM. LUNGS/CHEST: Lungs CTA bilaterally- no rhonchi/rales/wheezes diffusely, non-labored respirations, normal A/P diameter, symmetrical expansion, no chest wall deformity HEART (CV/PV): Regular rate and rhythm with blowing systolic murmur, no peripheral edema, no JVD. ABDOMEN: Soft, non-distended, no guarding, no focal tenderness or rebound tenderness, maroon/stool blood on ROSIE. MSK: Normal ROM, no swelling/deformity to bilateral UEs or LEs, moving all extremities without weakness, no cyanosis, spine midline without tenderness, normal curvature. NEURO: Mental Status AAOx4 - alert to person, place, time, events No facial droop, no forehead involvement. Motor: No focal weakness - strength 5/5 in bilateral UEs and LEs, proximal and distal, symmetric. Sensory: sensation intact to light touch globally. Gait NT. PSYCH: euthymic, cooperative, pleasant, appropriate speech Course Vital Signs Vital signs: Vital Signs Temperature 36.6 C 04/07/25 09:27 Pulse 91 H 04/07/25 09:27 Respiratory Rate 20 04/07/25 09:27 Blood Pressure 170/62 H 04/07/25 09:27 Pulse Oximetry 98 04/07/25 09:27 Temperature 36.6 C 04/07/25 09:27 Temperature Source Tympanic 04/07/25 09:27 Pulse 91 H 04/07/25 09:27 Respiratory Rate 20 04/07/25 09:27 Blood Pressure 170/62 H 04/07/25 09:27 Blood Pressure Position Supine 04/07/25 09:27 Pulse Oximetry 98 04/07/25 09:27 Oxygen Delivery Method Room Air 04/07/25 09:27 Oxygen Flow Rate 0 04/07/25 09:27 Pain Level 3 04/07/25 10:11 Lab/Test Results Lab/Test Results: Laboratory Tests Range/Units 04/07/25 09:48 WBC (4.4-10.8) 10^3/uL 12.11 H RBC (3.93-5.22) 10^6/uL 2.89 L Hgb (11.2-15.7) g/dL 7.3 L Hct (36.0-46.0) % 24.3 L MCV (80-95) fL 84 MCH (27.0-33.0) pg 25.3 L MCHC (32.0-36.0) % 30.0 L RDW (11.7-14.6) % 16.7 H Plt Count (130-400) 10^3/uL 364 MPV (8.0-11.0) fL 10.3 Immature Gran % % 0.7 Neutrophils % % 72.1 Lymphocytes % % 15.7 Monocytes % % 8.7 Eosinophils % % 1.8 Basophils % % 1.0 Nucleated RBC % (0.0-0.3) % 0.0 Absolute Neutrophils (1.2-6.7) 10^3/uL 8.73 H Absolute Lymphocytes (1.2-3.4) 10^3/uL 1.90 Absolute Monocytes (0.1-0.8) 10^3/uL 1.05 H Absolute Eosinophils (0.0-0.7) 10^3/uL 0.22 Absolute Basophils (0.0-0.2) 10^3/uL 0.12 RBC Morphology See Below Hypochromasia 1+ Poikilocytosis 1+ Ovalocytes 2+ PT (9.1-11.1) sec 12.6 H INR (0.9-1.1) 1.3 H APTT (20.6-30.2) sec 23.3 VBG Lactate (<or=2.0) mmol/L 1.2 Sodium (136-145) mmol/L 143 Potassium (3.5-5.1) mmol/L 3.5 Chloride (98-107) mmol/L 106 Carbon Dioxide (21.0-32.0) mmol/L 25.0 Anion Gap (3-11) mmol/L 12.0 H BUN (7-18) mg/dL 37 H Creatinine (0.55-1.02) mg/dL 1.5 H Est GFR (CKD-EPI 2020) (mL/min/1.73m2) 34.36 Glucose (74-106) mg/dL 97 Calcium (8.5-10.1) mg/dL 9.0 Magnesium (1.8-2.4) mg/dL 2.0 Total Bilirubin (0.2-1.0) mg/dL 0.5 AST (15-37) U/L 12 L ALT (14-59) U/L 21 Alkaline Phosphatase (46-116) U/L 55 Total Protein (6.4-8.2) g/dL 6.2 L Albumin (3.4-5.0) g/dL 2.9 L Lipase (<78) U/L 34 Medical Decision Making This dictation utilizes [id number] dictation software and may contain unedited grammatical errors. 84 year-old female presents to ED today by EMS with a chief complaint of 3-4x bloody stools since 0200, recent biopsy of cecal tumor after presenting with one month of bloody diarrhea requiring transfusion- blood had to come from outside facility due to Anti-E Ab. Quality described as feels generally weak, no radiation to hematemesis, coffee-ground emesis, chest pain, shortness of breath, abdominal pain, nausea/vomiting. Severity is described as severe for amount of red filling toilet bowl. Palliating factors include nothing specific attempted. Provoking factors include nothing specific. Events leading up to the incident/Associated Symptoms: Patient is now DNI/DNR. Patients' medical history: Advance care planning, known cecal tumor, history of primary lung cancer, aortic stenosis, difficult blood transfusion with incompatibility issues, hypertension, giant cell arteritis, status post TAVR. Family and social history: Noncontributory. Pertinent exam findings / vital signs include generalized mild abdominal tenderness, no focal rebound tenderness, no CVA tenderness to percussion bilaterally, lungs CTA, neuro intact, nontoxic, normotensive, dark maroon stool/blood on ROSIE. Differential / pathologies of concern include anemia, GI bleeding, not SBO. Diagnostic studies of: - CBC, CMP, PT/PTT, lactate, lipase, magnesium, type and screen. 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 Fuentes recommends ops and likely transfusion, recommends against CTA of the abdomen at this time as she is likely bleeding from her biopsy site, recommend CTA if she is decompensating. ED Course/Assessment/Plan: 84-year-old female with known cecal tumor presents with some bloody stools since last night, there is some dark brown blood in the rectal vault on ROSIE, her hemoglobin has dropped from 8.8-7.3 since her discharge on Saturday, I discussed with surgery likely need to observe her upstairs, need to transfuse her, CTA and possible plan for additional colonoscopy with any instability, presented the patient to [facility] who accepted for admission. Findings not consistent with hypotension, hemorrhage. Disposition of GI Bleeding. Patient verbalized understanding of the plan and return to ED criteria and engaged in shared decision making. Medical Records Medical records reviewed: Yes I reviewed the patient's medical records. Lab Data Lab results reviewed: Yes I reviewed the patient's lab results. Labs: Laboratory Tests Range/Units 04/07/25 09:48 WBC (4.4-10.8) 10^3/uL 12.11 H RBC (3.93-5.22) 10^6/uL 2.89 L Hgb (11.2-15.7) g/dL 7.3 L Hct (36.0-46.0) % 24.3 L MCV (80-95) fL 84 MCH (27.0-33.0) pg 25.3 L MCHC (32.0-36.0) % 30.0 L RDW (11.7-14.6) % 16.7 H Plt Count (130-400) 10^3/uL 364 MPV (8.0-11.0) fL 10.3 Immature Gran % % 0.7 Neutrophils % % 72.1 Lymphocytes % % 15.7 Monocytes % % 8.7 Eosinophils % % 1.8 Basophils % % 1.0 Nucleated RBC % (0.0-0.3) % 0.0 Absolute Neutrophils (1.2-6.7) 10^3/uL 8.73 H Absolute Lymphocytes (1.2-3.4) 10^3/uL 1.90 Absolute Monocytes (0.1-0.8) 10^3/uL 1.05 H Absolute Eosinophils (0.0-0.7) 10^3/uL 0.22 Absolute Basophils (0.0-0.2) 10^3/uL 0.12 RBC Morphology See Below Hypochromasia 1+ Poikilocytosis 1+ Ovalocytes 2+ PT (9.1-11.1) sec 12.6 H INR (0.9-1.1) 1.3 H APTT (20.6-30.2) sec 23.3 VBG Lactate (<or=2.0) mmol/L 1.2 Sodium (136-145) mmol/L 143 Potassium (3.5-5.1) mmol/L 3.5 Chloride (98-107) mmol/L 106 Carbon Dioxide (21.0-32.0) mmol/L 25.0 Anion Gap (3-11) mmol/L 12.0 H BUN (7-18) mg/dL 37 H Creatinine (0.55-1.02) mg/dL 1.5 H Est GFR (CKD-EPI 2020) (mL/min/1.73m2) 34.36 Glucose (74-106) mg/dL 97 Calcium (8.5-10.1) mg/dL 9.0 Magnesium (1.8-2.4) mg/dL 2.0 Total Bilirubin (0.2-1.0) mg/dL 0.5 AST (15-37) U/L 12 L ALT (14-59) U/L 21 Alkaline Phosphatase (46-116) U/L 55 Total Protein (6.4-8.2) g/dL 6.2 L Albumin (3.4-5.0) g/dL 2.9 L Lipase (<78) U/L 34 ABO/Rh O Positive Antibody Screen NEGATIVE Quality:SDOH Health Related Social Needs: Health related social needs risk of homeless Health related social needs details not applicable, since neighbor is very much attentive on her needs. PFSH All Active Problems (Updated 04/07/25 @ 14:48 by JEFFERSON Aguero) GI bleeding (Chronic) On deep vein thrombosis (DVT) prophylaxis (Acute) CKD (chronic kidney disease) (Chronic) Lower gastrointestinal bleed (Acute) Adenocarcinoma, colon (Acute) Anemia (Chronic) Weight loss, abnormal (Acute) Thyroid goiter (Acute) Vitamin D deficiency (Chronic 01/19/09) Hyperlipidemia (Chronic) Giant cell arteritis (Chronic 10/27/15) Essential hypertension (Chronic 10/19/13) Chronic obstructive lung disease (Chronic 03/31/07) PFT's showing decreased FEV1 Asthma (Acute) Osteoporosis (Chronic) Physician orders for life-sustaining treatment (POLST) form indicates patient wish for [id number] status (Acute) per conversation 01/21/2020. See visit note Knee pain, right (Acute) S/P TAVR (transcatheter aortic valve replacement) (Acute) [facility] 11/17/21, Sciatica of left side due to displacement of lumbar intervertebral disc (Acute) Lumbar stenosis with neurogenic claudication (Acute) Bruising (Acute) Medical History (Updated 04/07/25 @ 14:48 by JEFFERSON Aguero) Facial lesion Advance care planning Weight loss Diarrhea Incompatible blood transfusion Anti E antigen - need to order special blood for transfusions Pre-op testing Hip pain, right E. coli UTI Sepsis due to Escherichia coli Elevated troponin Hypokalemia Acute kidney injury superimposed on chronic kidney disease Shortness of breath Discharge planning issues DVT prophylaxis Acute UTI Sepsis Lumbar stenosis with neurogenic claudication MRI 06/06/21 - L3-4 herniation with severe stenosis Leg wound, left Back pain Aortic stenosis Ganglion of tendon sheath (01/11/05) History of unilateral nephrectomy Impacted cerumen Primary malignant neoplasm of lung (09/12/83) Swelling of left lower extremity (02/17/15) H/O unilateral nephrectomy left; congenital deformity Impacted cerumen Asthma 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; 1983 Lobectomy; 03/20 Neg CXR & Barium swallow Ganglion of tendon sheath 01/11/05 Ganglion cyst of R foot Left leg swelling 02/17/15 Neck mass see US 11/01 Anxiety (08/30/15) Cataract (11/19/16) Chronic cough Insomnia (10/08/17) Mass of right side of neck (02/28/16) Right hip pain (09/06/15) Skin lesion of face (08/30/15) 4mm by 2mm left upper lip Surgical History (Updated 03/30/25 @ 08:32 by Arina Ceja) Hx of colonoscopy with polypectomy (~03/2025) biopsy Status post cholecystectomy Status post lobectomy of lung S/P cholecystectomy S/P lobectomy of lung 10/14/83 left upper lobectomy; 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 Lobectomy (~1983) left upper lobectomy; carcinoid tumor left lung Cholecystectomy (~1979) Extraction of cataract 12/05/16-[facility] Family History Mother , 56 Melanoma Father , 73 Stroke Sister Essential hypertension Intestines cancer lower intestine Brother Essential hypertension Hyperlipidemia Hypertension Brother Essential hypertension Heart disease [place] Hyperlipidemia Maternal Grandfather Stroke Paternal Grandfather Cancer Maternal Grandmother Kidney malignancy Paternal Grandmother Cancer Son Essential hypertension Hyperlipidemia Son No problems noted. Daughter No problems noted. Social History Smoking/Tobacco Use Status: Former Tobacco Use Quit Date: 10/14/83 Tobacco: How many years used: 15 Quit status: quit date established Second Hand Exposure: Yes Smoking risk assessment performed?: Yes Alcohol Intake: current Alcohol Intake frequency: holidays/special occasions only Alcohol type: wine Drug use: Never Substance use type: does not use Adopted: No Caregiver/Support person: No Foster care: No Household members: other Details: grandson Housing: house Number of Children: 3 number of grandchildren: 4 Communication Needs: None Do you need help understanding health information?: Rarely Pets and animals: No Sexually active: No Do you think of yourself as: straight/heterosexual Current gender identity: female What is your relationship status?: How often do you talk on the phone with friends or family?: three or more times per week How often do you get together with friends or relatives?: three or more times per week How often do you attend roman catholic or bahai services?: 4 or more times per year Do you belong to any clubs or organized social groups?: yes Panel score (0-1 are the most socially isolated patients): 3 What type of physical activity do you participate in: walking Duration: 15-30 minutes/day Frequency: daily [place]/Quaker: Mandaen Special [place] needs: No Agree to transfusion: Yes Seatbelt use: always Drive intox or ride w/intox tank driver: No Working smoke detector in home: Yes Carbon monox detector in home: Yes Firearms in home: Yes Firearms unloaded and locked: Yes Do you feel safe at home: Yes Do you feel safe in your relationship?: Yes Victim of physical abuse: No Victim of emotional abuse: No Victim of sexual abuse: No Would you like helpful sources: No PAWSS Have you Been Recently Intoxicated or Drunk Within the Last 30 days?: No Have you Ever Experienced Previous Episodes of Alcohol Withdrawal?: No Have you ever Experienced Withdrawal Seizures?: No Have you ever Experienced Delirium Tremens(DT)s?: No Have you ever undergone Alcohol Rehabilitation Treatment (i.e, inpt ot outpatient treatment programs)?: No Have you ever Experienced Blackouts?: No Have you ever Combined Alcohol with other Downers within the last 90 days?: No Have you ever Combined Alcohol with any other Substance of Abuse during the last 90 days?: No Positive Blood Alcohol level on Presentation? [PCS.BAL]: No Evidence of Increased Autonomic Activity (i.e. HR>120, tremor, sweating, agitation, nausea)?: No Result: 0
--- NOTE | 2025-04-07 12:15 | W.PM.HP.N ---
Date of service: 04/07/25 Time of Service: 12:15 Assessment and Plan Assessment and plan (1) Lower gastrointestinal bleed: Status: Acute Assessment and plan: As per point 2 and 1 Might be d/t biopsy site bleeding Surgical consult (2) Adenocarcinoma, colon: Status: Acute Assessment and plan: Recent Dx form 03/26/25 admission (3) Anemia: Status: Chronic Assessment and plan: PRBC tranfusion with T&C for anti-E antigen Serial H&H d/t GIB in the setting of Point 1 and 2 (4) Hyperlipidemia: Status: Chronic Assessment and plan: Not on statin therapy (5) Giant cell arteritis: Status: Chronic Assessment and plan: On home steroid regimen (6) Essential hypertension: Status: Chronic Assessment and plan: ongoing home meds (7) Chronic obstructive lung disease: Status: Chronic Assessment and plan: Continue home meds (8) S/P TAVR (transcatheter aortic valve replacement): Status: Acute Assessment and plan: On ASA only - bio-prosthetic valve on hold now d/t GIB (9) CKD (chronic kidney disease): Status: Chronic Assessment and plan: Continue to monitor Cr elevated but not TIFFANIE slow IVF after PRBC BMP in AM (10) On deep vein thrombosis (DVT) prophylaxis: Status: Acute Assessment and plan: TEDS discussed with Dr. Jaramillo History of Present Illness History of Present Illness Chief Complaint: GIB Narrative: This 84-year-old female patient with a past medical hisotory of bioprosthetic aortic valve replacement, left nephrectomy with chronic kidney disease, hypertension, asthma, history of malignant neoplasm of lung with a left lobectomy in 84, aortic stenosis, giant cell arteritis and recent Dx of adenocarcinoma of the colon with GIB and anti-E antigen in blood presented to the ER for recurrent hematochezia. This was new and since recent discharged on 03/26/25 the patient reported no further hematochezia at day 2 s/p discharge. Reported dizziness, increased generalized weakness, abd tenderness , denied chest pain, nausea, vomiting or dysuria. H&H was 7.3 & 24.3, BUN 37 , Cr 1.5. Surgical consultation with Dr. Fuentes with recommendatoion for observation and likely transfusion,no CTA of the abdomen at this time as she is likely bleeding from her biopsy site, recommended CTA for The patient was admitted to the medical surgical floor for lower GIB. decompensation. DNR/ DNI confirmed Review of Systems All systems reviewed & are unremarkable except as noted in HPI and below PFSH All Active Problems (Updated 04/07/25 @ 14:48 by JEFFERSON Aguero) GI bleeding (Chronic) On deep vein thrombosis (DVT) prophylaxis (Acute) CKD (chronic kidney disease) (Chronic) Lower gastrointestinal bleed (Acute) Adenocarcinoma, colon (Acute) Anemia (Chronic) Weight loss, abnormal (Acute) Thyroid goiter (Acute) Vitamin D deficiency (Chronic 01/19/09) Hyperlipidemia (Chronic) Giant cell arteritis (Chronic 10/27/15) Essential hypertension (Chronic 10/19/13) Chronic obstructive lung disease (Chronic 03/31/07) PFT's showing decreased FEV1 Asthma (Acute) Osteoporosis (Chronic) Physician orders for life-sustaining treatment (POLST) form indicates patient wish for [id number] status (Acute) per conversation 01/21/2020. See visit note Knee pain, right (Acute) S/P TAVR (transcatheter aortic valve replacement) (Acute) [facility], Sciatica of left side due to displacement of lumbar intervertebral disc (Acute) Lumbar stenosis with neurogenic claudication (Acute) Bruising (Acute) Medical History (Updated 04/07/25 @ 14:48 by JEFFERSON Aguero) Facial lesion Advance care planning Weight loss Diarrhea Incompatible blood transfusion Anti E antigen - need to order special blood for transfusions Pre-op testing Hip pain, right E. coli UTI Sepsis due to Escherichia coli Elevated troponin Hypokalemia Acute kidney injury superimposed on chronic kidney disease Shortness of breath Discharge planning issues DVT prophylaxis Acute UTI Sepsis Lumbar stenosis with neurogenic claudication MRI 06/06/21 - L3-4 herniation with severe stenosis Leg wound, left Back pain Aortic stenosis Ganglion of tendon sheath (01/11/05) History of unilateral nephrectomy Impacted cerumen Primary malignant neoplasm of lung (09/12/83) Swelling of left lower extremity (02/17/15) H/O unilateral nephrectomy left; congenital deformity Impacted cerumen Asthma 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; 1983 Lobectomy; 03/20 Neg CXR & Barium swallow Ganglion of tendon sheath 01/11/05 Ganglion cyst of R foot Left leg swelling 02/17/15 Neck mass see US 11/01 Anxiety (08/30/15) Cataract (11/19/16) Chronic cough Insomnia (10/08/17) Mass of right side of neck (02/28/16) Right hip pain (09/06/15) Skin lesion of face (08/30/15) 4mm by 2mm left upper lip Surgical History (Updated 03/30/25 @ 08:32 by Arina Ceja) Hx of colonoscopy with polypectomy (~03/2025) biopsy Status post cholecystectomy Status post lobectomy of lung S/P cholecystectomy S/P lobectomy of lung 10/14/83 left upper lobectomy; 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 Daughter No problems noted. Social History Smoking/Tobacco Use Status: Former Tobacco Use Quit Date: 10/14/83 Tobacco: How many years used: 15 Quit status: quit date established Second Hand Exposure: Yes Smoking risk assessment performed?: Yes Alcohol Intake: current Alcohol Intake frequency: holidays/special occasions only Alcohol type: wine Drug use: Never Substance use type: does not use Adopted: No Caregiver/Support person: No Foster care: No Household members: other Details: grandson Housing: house Number of Children: 3 number of grandchildren: 4 Communication Needs: None Do you need help understanding health information?: Rarely Pets and animals: No Sexually active: No Do you think of yourself as: straight/heterosexual Current gender identity: female What is your relationship status?: How often do you talk on the phone with friends or family?: three or more times per week How often do you get together with friends or relatives?: three or more times per week How often do you attend jewish or alevism services?: 4 or more times per year Do you belong to any clubs or organized social groups?: yes Panel score (0-1 are the most socially isolated patients): 3 What type of physical activity do you participate in: walking Duration: 15-30 minutes/day Frequency: daily [place]/Jain: Pentecostal Special [place] needs: No Agree to transfusion: Yes Seatbelt use: always Drive intox or ride w/intox drivers license examiner: No Working smoke detector in home: Yes Carbon monox detector in home: Yes Firearms in home: Yes Firearms unloaded and locked: Yes Do you feel safe at home: Yes Do you feel safe in your relationship?: Yes Victim of physical abuse: No Victim of emotional abuse: No Victim of sexual abuse: No Would you like helpful sources: No Meds Allergies and Home Medications Allergies Allergy/AdvReac Type Severity Reaction Status Date / Time doxazosin Allergy Severe RASH Verified 04/07/25 09:37 nickel Allergy Severe SEVERE RASH Verified 04/07/25 09:37 lisinopril Allergy Intermediate HIVES Verified 04/07/25 09:37 Beta-Blockers AdvReac Intermediate WEAKNESS Verified 04/07/25 09:37 (Beta-Adrenergic Bloc Home Medications ?Medication ?Instructions ?Recorded ?Confirmed ?Type calcium 600 mg (as 2 ea PO DAILY 03/13/13 04/07/25 History carbonate)-vitamin D3 20 mcg (800 unit) tablet (Caltrate with Vitamin D3) cholecalciferol (vitamin D3) 25 2,000 unit PO DAILY 03/13/13 04/07/25 History mcg (1,000 unit) capsule aspirin 81 mg tablet,delayed 81 mg PO HS 07/22/21 04/07/25 History release amoxicillin 500 mg capsule 2,000 mg (4 x 500 mg) PO ONCE #8 03/13/24 04/07/25 Rx caps amlodipine 5 mg tablet 5 mg PO DAILY #90 tab-caps 09/14/24 04/07/25 Rx escitalopram oxalate 10 mg tablet 10 mg PO QAM #90 tab-caps 09/14/24 04/07/25 Rx (Lexapro) losartan 50 mg tablet 50 mg PO BID #180 tabs 09/14/24 04/07/25 Rx metoprolol succinate 25 mg See Rx Instructions .Route 09/14/24 04/07/25 Rx tablet,extended release 24 hr .COMPLEX #90 tabs tramadol 25 mg tablet See Rx Instructions PO BID PRN 03/23/25 04/07/25 Rx pain #28 tabs hydrochlorothiazide 25 mg tablet 25 mg PO DAILY #90 tabs 04/01/25 04/07/25 Rx prednisone 5 mg tablet 7 mg PO DAILY 04/07/25 04/07/25 History Exam Narrative Exam Narrative: Alert and oriented X4, no acute distress, clear lungs,. S1, S2 , no murmur, abdomen is non-distended , soft with diffused tenderness,abdomen is non-distended , soft with diffuse tenderness, no CVA tenderness, oral mucous membranes/ lips slightly dry Psych Mental Status: mental status grossly normal Speech and Movement: speech and movement normal Mood: congruent mood Affect: normal affect Results Labs 04/07/25 15:20 04/07/25 09:48 Labs: Laboratory Results - last 24 hr 04/07/25 09:48 WBC 12.11 H RBC 2.89 L Hgb 7.3 L Hct 24.3 L MCV 84 MCH 25.3 L MCHC 30.0 L RDW 16.7 H Plt Count 364 MPV 10.3 Immature Gran % 0.7 Neutrophils % 72.1 Lymphocytes % 15.7 Monocytes % 8.7 Eosinophils % 1.8 Basophils % 1.0 Nucleated RBC % 0.0 Absolute Neutrophils 8.73 H Absolute Lymphocytes 1.90 Absolute Monocytes 1.05 H Absolute Eosinophils 0.22 Absolute Basophils 0.12 RBC Morphology See Below Hypochromasia 1+ Poikilocytosis 1+ Ovalocytes 2+ PT 12.6 H INR 1.3 H APTT 23.3 VBG Lactate 1.2 Sodium 143 Potassium 3.5 Chloride 106 Carbon Dioxide 25.0 Anion Gap 12.0 H BUN 37 H Creatinine 1.5 H Est GFR (CKD-EPI 2020) 34.36 Glucose 97 Calcium 9.0 Magnesium 2.0 Total Bilirubin 0.5 AST 12 L ALT 21 Alkaline Phosphatase 55 Total Protein 6.2 L Albumin 2.9 L Lipase 34 ABO/Rh O Positive Antibody Screen NEGATIVE Last Vital Signs Temp 36.6 C 04/07/25 09:27 Pulse 86 04/07/25 10:50 Resp 22 04/07/25 10:50 BP 145/50 H 04/07/25 10:46 Pulse Ox 96 04/07/25 10:50 PAWSS Have you Been Recently Intoxicated or Drunk Within the Last 30 days?: No Have you Ever Experienced Previous Episodes of Alcohol Withdrawal?: No Have you ever Experienced Withdrawal Seizures?: No Have you ever Experienced Delirium Tremens(DT)s?: No Have you ever undergone Alcohol Rehabilitation Treatment (i.e, inpt ot outpatient treatment programs)?: No Have you ever Experienced Blackouts?: No Have you ever Combined Alcohol with other Downers within the last 90 days?: No Have you ever Combined Alcohol with any other Substance of Abuse during the last 90 days?: No Positive Blood Alcohol level on Presentation? [PCS.BAL]: No Evidence of Increased Autonomic Activity (i.e. HR>120, tremor, sweating, agitation, nausea)?: No Result: 0 Time Spent Time spent with Patient: >75 minutes Time was spent: preparing to see the patient(eg.review tests), obtaining and/or reviewing separately otained hiistory, ordering medications,tests, procedures, referring, communicating with other health gericare aide teacher, indepentently interpreting results, counseling the patient and care coordination
[2025-04-07 13:18] LABS: Glucose Negative (Negative)
--- NOTE | 2025-04-07 13:51 | W.PC.ACHO ---
Registration Status: REG ER Primary Language: Preferred Language: Ukrainian ED Information & Data Chief Complaint GI Bleed 04/07/25 10:44 Triage Note Pt had diarrhea x3 since 04/07/25 09:27 0200 with bright red blood. Pt reporting dizziness and stomach cramping. Medical / Surgical History (Last Updated 04/01/25 @ 07:24 by Zoey Lucas MD, [place]) Facial lesion Advance care planning Weight loss Diarrhea Incompatible blood transfusion Pre-op testing Hip pain, right E. coli UTI Sepsis due to Escherichia coli Elevated troponin Hypokalemia Acute kidney injury superimposed on chronic kidney disease Shortness of breath Discharge planning issues DVT prophylaxis Acute UTI Sepsis Lumbar stenosis with neurogenic claudication Leg wound, left Back pain Aortic stenosis Ganglion of tendon sheath (01/11/05) History of unilateral nephrectomy Impacted cerumen Primary malignant neoplasm of lung (09/12/83) Swelling of left lower extremity (02/17/15) H/O unilateral nephrectomy Impacted cerumen Asthma Primary malignant neoplasm of lung Ganglion of tendon sheath Left leg swelling Neck mass Anxiety (08/30/15) Cataract (11/19/16) Chronic cough Insomnia (10/08/17) Mass of right side of neck (02/28/16) Right hip pain (09/06/15) Skin lesion of face (08/30/15) (Last Updated 03/30/25 @ 08:32 by Arina Ceja) Hx of colonoscopy with polypectomy (~03/2025) Status post cholecystectomy Status post lobectomy of lung S/P cholecystectomy S/P lobectomy of lung Nephrectomy Lobectomy (~1983) Cholecystectomy (~1979) Extraction of cataract Most Recent Vital Signs Temperature 36.6 C 04/07/25 09:27 Temperature Source Tympanic 04/07/25 09:27 Pulse 85 04/07/25 13:31 Pulse 87 04/07/25 13:30 Respiratory Rate 16 04/07/25 13:20 Blood Pressure 126/45 L 04/07/25 13:31 Blood Pressure Mean 70 04/07/25 13:31 Blood Pressure Position Supine 04/07/25 09:27 Pulse Oximetry 98 04/07/25 13:31 Oxygen Delivery Method Room Air 04/07/25 09:27 Oxygen Flow Rate 0 04/07/25 09:27 Pain Level 3 04/07/25 10:11 Allergies doxazosin Allergy (Severe, Verified 04/07/25 09:37) RASH nickel Allergy (Severe, Verified 04/07/25 09:37) SEVERE RASH lisinopril Allergy (Intermediate, Verified 04/07/25 09:37) HIVES Beta-Blockers (Beta-Adrenergic Bloc Adverse Reaction (Intermediate, Verified 04/07/25 09:37) WEAKNESS Precautions Isolation Standard precaution 04/07/25 10:19 IV IV Catheter Type [Right Peripheral IV Antecubital] IV Catheter Gauge [Right 18 Antecubital] Diet Orders Category Date Time Status Heart Healthy Eating [DIET] Nutrition 04/07/25 Lunch Active Diagnostics 04/07/25 04/07/25 04/07/25 Range/Units 15:00 13:00 09:48 WBC Pending 12.11 H (4.4-10.8) 10^3/uL RBC Pending 2.89 L (3.93-5.22) 10^6/uL Hgb Pending 7.3 L (11.2-15.7) g/dL Hct Pending 24.3 L (36.0-46.0) % MCV Pending 84 (80-95) fL MCH Pending 25.3 L (27.0-33.0) pg MCHC Pending 30.0 L (32.0-36.0) % RDW Pending 16.7 H (11.7-14.6) % Plt Count Pending 364 (130-400) 10^3/uL MPV Pending 10.3 (8.0-11.0) fL Immature Gran % 0.7 % Neutrophils % 72.1 % Lymphocytes % 15.7 % Monocytes % 8.7 % Eosinophils % 1.8 % Basophils % 1.0 % Nucleated RBC % 0.0 (0.0-0.3) % Absolute Neutrophils 8.73 H (1.2-6.7) 10^3/uL Absolute Lymphocytes 1.90 (1.2-3.4) 10^3/uL Absolute Monocytes 1.05 H (0.1-0.8) 10^3/uL Absolute Eosinophils 0.22 (0.0-0.7) 10^3/uL Absolute Basophils 0.12 (0.0-0.2) 10^3/uL RBC Morphology See Below Hypochromasia 1+ Poikilocytosis 1+ Ovalocytes 2+ PT 12.6 H (9.1-11.1) sec INR 1.3 H (0.9-1.1) APTT 23.3 (20.6-30.2) sec VBG Lactate 1.2 (<or=2.0) mmol/L Sodium 143 (136-145) mmol/L Potassium 3.5 (3.5-5.1) mmol/L Chloride 106 (98-107) mmol/L Carbon Dioxide 25.0 (21.0-32.0) mmol/L Anion Gap 12.0 H (3-11) mmol/L BUN 37 H (7-18) mg/dL Creatinine 1.5 H (0.55-1.02) mg/dL Est GFR (CKD-EPI 2020) 34.36 (mL/min/1.73m2) Glucose 97 (74-106) mg/dL Calcium 9.0 (8.5-10.1) mg/dL Magnesium 2.0 (1.8-2.4) mg/dL Total Bilirubin 0.5 (0.2-1.0) mg/dL AST 12 L (15-37) U/L ALT 21 (14-59) U/L Alkaline Phosphatase 55 (46-116) U/L Total Protein 6.2 L (6.4-8.2) g/dL Albumin 2.9 L (3.4-5.0) g/dL Lipase 34 (<78) U/L Urine Color Yellow (Yellow) Urine Clarity Clear (Clear) Urine pH 5.5 (5-8) Ur Specific [place] 1.020 (1.005-1.025) Urine Protein Negative (Neg-Trace) mg/dL Urine Ketones Negative (Negative) mg/dL Urine Blood Negative (Negative) Urine Nitrite Negative (Negative) Urine Bilirubin Negative (Negative) Urine Urobilinogen 0.2 (Up to 0.2) mg/dL Ur Leukocyte Esterase Negative (Negative) Urine Glucose Negative (Negative) mg/dL ABO/Rh O Positive Antibody Screen NEGATIVE Intake and Output - 24 Hour Total 04/07/25 09:15 thru 04/07/25 10:19 Weight 74.1 kg Other: Emesis Description None Falls Risk Assessment History of Falls No History 04/07/25 10:19 Contributing Factors Unstable 04/07/25 10:19 Ambulatory Aids Independent 04/07/25 10:19 Fall Total Score 3 04/07/25 10:19 Level of Risk Standard/Low Risk 04/07/25 10:19 Problems (Last Updated 03/30/25 @ 08:32 by Arina Ceja) On deep vein thrombosis (DVT) prophylaxis (Acute) CKD (chronic kidney disease) (Chronic) Lower gastrointestinal bleed (Acute) Adenocarcinoma, colon (Acute) Anemia (Chronic) Hyperlipidemia (Chronic) Giant cell arteritis (Chronic 10/27/15) Essential hypertension (Chronic 10/19/13) Chronic obstructive lung disease (Chronic 03/31/07) S/P TAVR (transcatheter aortic valve replacement) (Acute) v v v v v v v v v Sending and/or Receiving Nurses: Please use comment section below to note any information pertinent to the patient hand-off not included above. Information / Comments: pt arrives to 215 via stretcher from ED, Melvin Mccarty, will be her nurse. Report received from: Minda Chavez @[id number]
[2025-04-07 15:31] LABS: HCT 27.2 % (36.0-46.0); HGB 8.4 g/dL (11.2-15.7); MCH 25.7 pg (27.0-33.0); MCHC 30.9 % (32.0-36.0); MCV 83 fL (80-95); MPV 10.5 fL (8.0-11.0); Platelet Count 420 10^3/uL (130-400); RBC 3.27 10^6/uL (3.93-5.22); RDW 16.7 % (11.7-14.6); RDW-SD 51.0 fL; WBC 15.43 10^3/uL (4.4-10.8)
[2025-04-07] MEDS: Losartan 50 MG TAB PO (20:31)
[2025-04-07] MEDS: Normal Saline Flush 10 ML SYR IVP (20:32)
[2025-04-08 00:29] VITALS: BP 138/60; PULSE 76; RESP 16; TEMP 36.7; O2SAT 97
[2025-04-08 01:07] VITALS: BP 134/57; PULSE 72; RESP 15; TEMP 36.4; O2SAT 97
[2025-04-08] MEDS: Lactated Ringers 1,000 ML 50 ML IV (01:19)
[2025-04-08 07:50] LABS: EPI 027-NAP1-B1 PRESUMPTIVE NEGATIVE
[2025-04-08 08:02] VITALS: BP 139/64; PULSE 78; RESP 16; TEMP 35.4; O2SAT 98
[2025-04-08] MEDS: Escitalopram 10 MG TAB PO (08:17)
[2025-04-08] MEDS: Calcium 600mg/Vit D 200U TAB 1 TAB PO (08:18)
[2025-04-08] MEDS: Losartan 50 MG TAB PO ×2 (08:18→19:54)
[2025-04-08] MEDS: hydroCHLOROthiazide 25 MG TAB PO (08:18)
[2025-04-08] MEDS: amLODIPine 5 MG TAB PO (08:18)
[2025-04-08] MEDS: Metoprolol CR 25 MG TABCR PO (08:18)
[2025-04-08] MEDS: Normal Saline Flush 10 ML SYR IVP ×2 (08:19→19:54)
[2025-04-08] MEDS: Cholecalciferol (Vitamin D3) 1,000 UNIT TAB 2000 UNITS PO (08:19)
[2025-04-08 08:37] LABS: HCT 32.1 % (36.0-46.0); HGB 10.3 g/dL (11.2-15.7); MCH 26.8 pg (27.0-33.0); MCHC 32.1 % (32.0-36.0); MCV 83 fL (80-95); MPV 10.0 fL (8.0-11.0); Platelet Count 355 10^3/uL (130-400); RBC 3.85 10^6/uL (3.93-5.22); RDW 15.9 % (11.7-14.6); RDW-SD 48.1 fL; WBC 10.46 10^3/uL (4.4-10.8)
--- NOTE | 2025-04-08 13:12 | PHA.REVIEW2 ---
Pharmacy Admission Review Admission Clinical Review Admission Pharmacy Review: On deep vein thrombosis (DVT) prophylaxis (Acute) Lower gastrointestinal bleed (Acute) Adenocarcinoma, colon (Acute) S/P TAVR (transcatheter aortic valve replacement) (Acute) doxazosin Allergy (Severe, Verified 04/07/25 09:37) RASH nickel Allergy (Severe, Verified 04/07/25 09:37) SEVERE RASH lisinopril Allergy (Intermediate, Verified 04/07/25 09:37) HIVES Beta-Blockers (Beta-Adrenergic Bloc Adverse Reaction (Intermediate, Verified 04/07/25 09:37) WEAKNESS Resuscitation Status DNR/DNI Height 5 ft 1 in Weight 71.713 kg Pharmacy Admission Review Renal Dosing Renal Dosing: BUN 37 mg/dL (7-18) H 04/07/25 09:48 Creatinine 1.5 mg/dL (0.55-1.02) H 04/07/25 09:48 Medications needing adjustments: Reviewed (CrCl 25.73 mL/min) List of meds needing interventions: Current medications are okay Anticoagulation Anticoagulation: Hgb 10.3 g/dL (11.2-15.7) L 04/08/25 08:31 Hct 32.1 % (36.0-46.0) L 04/08/25 08:31 Plt Count 355 10^3/uL (130-400) 04/08/25 08:31 INR 1.3 (0.9-1.1) H 04/07/25 09:48 Creatinine 1.5 mg/dL (0.55-1.02) H 04/07/25 09:48 DVT Prophylaxis: Reviewed (TEDs, Hgb increased from 8.4) Relevant Labs Relevant Labs: Sodium 143 mmol/L (136-145) 04/07/25 09:48 Potassium 3.5 mmol/L (3.5-5.1) 04/07/25 09:48 Chloride 106 mmol/L (98-107) 04/07/25 09:48 Magnesium 2.0 mg/dL (1.8-2.4) 04/07/25 09:48 Electrolytes, C-Reactive P, ESR: Reviewed Cardiac Review BP, HR, EF%: Reviewed (BP and HR WNL) List meds needing interventions: Has orders for amlodipine 5mg daily, HCTZ 25mg daily, losartan 50mg BID and metoprolol XL 25mg daily QTc Review QTc: Reviewed (452 from 07/22/21 - most recent EKG on file) IV to PO Switch IV Medications: Reviewed Home Meds Home Med List reviewed: Intervened Relevent Home Meds Not ordered & why?: amoxicillin (pre-dental work) and aspirin (on hold her H+P - GI bleed) Patient recently filled HCTZ 12.5mg tablets but has 25mg tablets on home med list (also filled recently). Spoke to provider during morning meeting, per provider patient was recently increased to 25mg. Informed provider that patient should be counseled to stop the 12.5mg tablet as she recently picked it up. Current Meds Current Medication Order Review: Reviewed
[2025-04-08] MEDS: Acetaminophen 325 MG TAB 650 MG PO (13:22)
--- NOTE | 2025-04-08 14:19 | PGE_ITS ---
Date of Service Date of service: 04/08/25 Time of Service: 14:19 Assessment and Plan Assessment and plan (1) Lower gastrointestinal bleed: Status: Acute Assessment and plan: As per point 2 and 1 Might be d/t biopsy site bleeding Surgical consult : recommended [facility] [place] - spoke to Dr. Vazquez and patient was declined -non bed and non-emergent- missing component of pathology report regarding the adenocarcinoma of the colon- also mentioned that referral received 2 days prior to the phone call -Dr Knox is planing for colon prep this PM and Surgery in AM -NPO at midnight - bowel prep to be ordered -Ongoing bleeding -- H&H at 1400 (2) Adenocarcinoma, colon: Status: Acute Assessment and plan: Recent Dx form 03/26/[address] ordered for metastasis r/o (3) Anemia: Status: Chronic Assessment and plan: PRBC tranfusion with T&C for anti-E antigen Ongoing Serial H&H d/t GIB in the setting of Point 1 and 2 (4) Hyperlipidemia: Status: Chronic Assessment and plan: No statin listed onhome meds list (5) Giant cell arteritis: Status: Chronic Assessment and plan: On home steroid regimen (6) Essential hypertension: Status: Chronic Assessment and plan: ongoing home steroids (7) Chronic obstructive lung disease: Status: Chronic Assessment and plan: Ongoing home meds (8) S/P TAVR (transcatheter aortic valve replacement): Status: Acute Assessment and plan: On ASA only - bio-prosthetic valve continue to hold d/t acute GIB (9) CKD (chronic kidney disease): Status: Chronic Assessment and plan: Continue to monitor BMP in AM (10) On deep vein thrombosis (DVT) prophylaxis: Status: Acute Assessment and plan: Ongoing TEDS discussed with Dr. Jaramillo Subjective Subjective Patient reports: feels better, still having pain, tolerating liquids well, voiding w/o difficulty, flatus, bowel movement, blood in stool, afebrile and other; denies nausea, vomiting or shortness of breath Exam Narrative Exam Narrative: Alert and oriented X4, no acute distress, clear lungs,. S1, S2 , no murmur, abdomen is non-distended , soft with diffuse tenderness, no CVA tenderness, oral mucous membranes are moist, moves all 4 ext Objective Last Vital Signs Temp 35.4 C L 04/08/25 08:02 Pulse 78 04/08/25 08:02 Resp 16 04/08/25 08:02 BP 139/64 04/08/25 08:02 Pulse Ox 98 04/08/25 08:02 Laboratory Results - last 24 hr 04/07/25 04/07/25 04/08/25 09:48 15:20 06:15 WBC 15.43 H RBC 3.27 L Hgb 8.4 L Hct 27.2 L MCV 83 MCH 25.7 L MCHC 30.9 L RDW 16.7 H Plt Count 420 H MPV 10.5 Stl C.difficile Tox PCR Negative ABO/Rh O Positive Antibody Screen NEGATIVE Crossmatch See Detail 04/08/25 04/08/25 08:31 Unknown WBC 10.46 Cancelled RBC 3.85 L Cancelled Hgb 10.3 L Cancelled Hct 32.1 L Cancelled MCV 83 Cancelled MCH 26.8 L Cancelled MCHC 32.1 Cancelled RDW 15.9 H Cancelled Plt Count 355 Cancelled MPV 10.0 Cancelled Stl C.difficile Tox PCR ABO/Rh Antibody Screen Crossmatch PAWSS Have you Been Recently Intoxicated or Drunk Within the Last 30 days?: No Have you Ever Experienced Previous Episodes of Alcohol Withdrawal?: No Have you ever Experienced Withdrawal Seizures?: No Have you ever Experienced Delirium Tremens(DT)s?: No Have you ever undergone Alcohol Rehabilitation Treatment (i.e, inpt ot outpatient treatment programs)?: No Have you ever Experienced Blackouts?: No Have you ever Combined Alcohol with other Downers within the last 90 days?: No Have you ever Combined Alcohol with any other Substance of Abuse during the last 90 days?: No Positive Blood Alcohol level on Presentation? [PCS.BAL]: No Evidence of Increased Autonomic Activity (i.e. HR>120, tremor, sweating, agitation, nausea)?: No Result: 0 Time Spent with Patient Time Spent with Patient: >50 minutes Time was spent: preparing to see the patient(eg.review tests), obtaining and/or reviewing separately otained hiistory, ordering medications,tests, procedures, referring, communicating with other health intensive care specialist, indepentently interpreting results, counseling the patient and care coordination
--- NOTE | 2025-04-08 14:27 | DI.CT_ITS ---
Exam(s) CT CHEST WO EXAM: CT CHEST WO CLINICAL HISTORY: colon adenocarcinoma - metastasis TECHNIQUE: Imaging Protocol: Axial computed tomography images with coronal and sagittal reformatted images were created and reviewed. Computer aided detection (CAD) was utilized. CONTRAST MATERIAL: Intravenous: Omnipaque 350 Contrast volume:structured data ml. COMPARISON: CT CHEST WITH CONTRAST from 11/25/2008 CR,XR XR CHEST 2V PA LATERAL from 07/22/[address] ABDOMEN PELVIS CTA from 03/23/2025 FINDINGS: Pulmonary parenchyma: No consolidation. Suture material noted near the left hilum which was present on prior exams. There are multiple scattered bilateral tiny pulmonary nodules. Largest nodule is in the posterior right upper lobe which measures 9 by 4 millimeters. The findings are suspicious for metastatic disease. Tracheobronchial tree: No bronchiectasis or mucous plugging. Mediastinum and Lenka: No dominant adenopathy. Stable cyst in the anterior mediastinum. Pleura: No effusion. No pneumothorax. Heart: The heart is moderately dilated. TAVR. Mitral annulus is heavily calcified. Aorta: Thoracic aorta non-dilated. Mild atherosclerotic changes. Pulmonary arteries: No gross evidence of emboli. Upper abdomen: No acute findings. Bones: Old sternal fracture. No lytic or blastic lesions are identified. Chronic left posterior rib deformity. Soft tissues: Unremarkable. IMPRESSION: Multiple bilateral pulmonary nodules, suspicious for metastatic disease. RADIATION DOSE DELIVERED: 227.72mGy.cm Total DLP DATA REPOSITORY: All CT scans at this facility are submitted to the National Radiology Data Registry (NRDR) Dose Index Registry (DIR) with the [employer] (ACR). RADIATION OPTIMIZATION: All CT scans at this facility use at least one of these dose optimization techniques: automated exposure control; mA and/or kV adjustment per patient size (includes targeted exams where dose is matched to clinical indication); or iterative reconstruction.
[2025-04-08 14:51] LABS: HCT 31.4 % (36.0-46.0); HGB 10.2 g/dL (11.2-15.7); MCH 27.0 pg (27.0-33.0); MCHC 32.5 % (32.0-36.0); MCV 83 fL (80-95); MPV 9.9 fL (8.0-11.0); Platelet Count 346 10^3/uL (130-400); RBC 3.78 10^6/uL (3.93-5.22); RDW 15.9 % (11.7-14.6); RDW-SD 48.4 fL; WBC 11.42 10^3/uL (4.4-10.8)
[2025-04-08 15:03] LABS: Anion Gap 10.9 mmol/L (3-11); BUN 27 mg/dL (7-18); CO2 24.1 mmol/L (21.0-32.0); Calcium 9.4 mg/dL (8.5-10.1); Chloride 105 mmol/L (98-107); Estimated GFR 37.33 (mL/min/1.73m2); Glucose 138 mg/dL (74-106); Potassium 4.1 mmol/L (3.5-5.1); Sodium 140 mmol/L (136-145)
--- NOTE | 2025-04-08 16:44 | CHAPLAIN ---
Debby was in bed when I visited. She was pleasant, said she is doing ok and wanted to rest. I explained my role and offered support.
[2025-04-08] MEDS: metroNIDAZOLE 500 MG TAB PO (17:54)
--- NOTE | 2025-04-08 18:07 | PDOC.CMIN ---
Date of service: 04/08/25 Time of Service: 18:07 Care Management Initial Assmt Initial Assessment Reason for Hospitalization: Lower GI Bleed Functional Status/Living Situation Patient Presentation: Zeny was sitting up in bed visiting with her family when CM met with her. She was very pleasant in manner and engaged easily with CM. Zeny was admitted with a lower GI bled. She had been hospitalized with the same thing a couple of weeks ago. During that admission she was found to have an adenocarcinoma of her colon. The original plan was for her to go to [facility] [place] for surgery, however she began to bleed again and it was felt that the need for surgery had become emergent. [facility] [place] [place] is at capacity, so the surgery will be done at [facility] tomorrow. Zeny has an unusual antigen in her blood making it more difficult to secure. Four units have been ordered and are available for her surgery tomorrow. Zeny lives in a single family home in [place]. She has 3 children. Her son Shady lives in [facility], another son lives in [place] and her daughter lives in [place]. Zeny reported that she was originally from [place] but has been in [place] for 25 years. 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 She is independent with ADLs and currently received RN and PT. Zeny uses a walker for ambulatory assistance. Town of Residence: [place], [place] Resides with: Alone Significant Other/Family: Local (has children both locally and out of state) Employment Status: Retired Instrumental Activities of Daily Living (ADLs): Independent Medications Medication Management: No Issues/Barriers identified Physical Functioning/Mobility Assistive Device: walker Advance Directives Advance Directives: Do you have an Advance Directive: Y 11/14/13, 00:46 AD On File at [facility]: Y 03/03/13, 10:11 Date Asked 03/23/25 03/23/25, 11:13 AD Date Reviewed 04/07/25 04/07/25, 09:36 COLST On File at [facility] Yes 07/29/21, 04:13 COLST Date Scanned 07/29/21 07/29/21, 04:13 Code Status Resuscitation Status DNR/DNI Insurance Coverage/Financial Issues Insurance: Medicare / Federal Care Team Visit Care Team Role Provider Type Shaila Ayala APRN MD [facility] STAFF PHYSICIAN Zoey Lucas MD, [place] Primary Care Provider [facility] Yuki Fuentes MD Other Providers [facility] STAFF PHYSICIAN JEFFERSON Aguero Emergency Provider [employer] FINISHER Ravi Jaramillo Admit Provider [facility] STAFF PHYSICIAN Attending Provider Discharge Potential Discharge Needs: PCP F/U Appt and Surgical F/U Appt Anticipated Barriers to Discharge: None Identified Patient/Family Education Needs: Review discharge instructions, discuss Ask Me Three Transportation: Private vehicle Plan: Anticipate Zeny will be discharged home with a resumption of home health services. She currently receives nursing and PT and could benefit from the addition of OT and TRAINING MANAGER. She will follow up with her surgeon, PCP and plan of care and transport with family. CM will follow and continue to support discharge planning efforts. Social Determinants of Health Screening Social Determinants of health last assessed in clinic: 04/08/25 Will the Patient Participate in the Screening?: Yes Do you worry about having a steady place to live?: no Problems where you live: no known problems In the past 12 months, have you had to go without electric, gas, oil or water in your home?: no 1. Within the past 12 months, we worried whether our food would run out before we got money to buy more.: Never true 2. Within the past 12 months, the food we bought just didn't last and we didn't have money to get more.: Never true Has lack of transportation kept you from medical appointments or from doing things needed for daily living?: no Has anyone in your life made you feel unsafe or unsupported?: no How hard is it for you to pay for the very basics like food, housing, medical care, and heating? Would you say it is:: Not hard at all Do you want help finding or keeping work or a job?: I do not need or want help If for any reason you need help with day-to-day activities such as bathing, preparing meals, shopping, managing finances, etc., do you get the help you need?: I get all the help I need How often do you feel lonely or isolated from those around you?: Never Do you speak a language other than Romanian at home?: No Does the patient want assistance with any of the above?: No PFSH All Active Problems (Updated 04/07/25 @ 14:48 by JEFFERSON Aguero) GI bleeding (Chronic) On deep vein thrombosis (DVT) prophylaxis (Acute) CKD (chronic kidney disease) (Chronic) Lower gastrointestinal bleed (Acute) Adenocarcinoma, colon (Acute) Anemia (Chronic) Weight loss, abnormal (Acute) Thyroid goiter (Acute) Vitamin D deficiency (Chronic 01/19/09) Hyperlipidemia (Chronic) Giant cell arteritis (Chronic 10/27/15) Essential hypertension (Chronic 10/19/13) Chronic obstructive lung disease (Chronic 03/31/07) PFT's showing decreased FEV1 Asthma (Acute) Osteoporosis (Chronic) Physician orders for life-sustaining treatment (POLST) form indicates patient wish for [id number] status (Acute) per conversation 01/21/2020. See visit note Knee pain, right (Acute) S/P TAVR (transcatheter aortic valve replacement) (Acute) [facility] [place] [place] 11/17/21, Sciatica of left side due to displacement of lumbar intervertebral disc (Acute) Lumbar stenosis with neurogenic claudication (Acute) Bruising (Acute) Medical History (Updated 04/07/25 @ 14:48 by JEFFERSON Aguero) Facial lesion Advance care planning Weight loss Diarrhea Incompatible blood transfusion Anti E antigen - need to order special blood for transfusions Pre-op testing Hip pain, right E. coli UTI Sepsis due to Escherichia coli Elevated troponin Hypokalemia Acute kidney injury superimposed on chronic kidney disease Shortness of breath Discharge planning issues DVT prophylaxis Acute UTI Sepsis Lumbar stenosis with neurogenic claudication MRI 06/06/21 - L3-4 herniation with severe stenosis Leg wound, left Back pain Aortic stenosis Ganglion of tendon sheath (01/11/05) History of unilateral nephrectomy Impacted cerumen Primary malignant neoplasm of lung (09/12/83) Swelling of left lower extremity (02/17/15) H/O unilateral nephrectomy left; congenital deformity Impacted cerumen Asthma 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; 1984 Lobectomy; 03/20 Neg CXR & Barium swallow Ganglion of tendon sheath 01/11/05 Ganglion cyst of R foot Left leg swelling 02/17/15 Neck mass see US 11/01 Anxiety (08/30/15) Cataract (11/19/16) Chronic cough Insomnia (10/08/17) Mass of right side of neck (02/28/16) Right hip pain (09/06/15) Skin lesion of face (08/30/15) 4mm by 2mm left upper lip Surgical History (Updated 03/30/25 @ 08:32 by Arina Ceja) Hx of colonoscopy with polypectomy (~03/2025) biopsy Status post cholecystectomy Status post lobectomy of lung S/P cholecystectomy S/P lobectomy of lung 10/14/83 left upper lobectomy; 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 Lobectomy (~1983) left upper lobectomy; carcinoid tumor left lung Cholecystectomy (~1979) Extraction of cataract 12/05/16-[facility] [place] Family History Mother , 56 Melanoma Father , 73 Stroke Sister Essential hypertension Intestines cancer lower intestine Brother Essential hypertension Hyperlipidemia Hypertension Brother Essential hypertension Heart disease BYPASS Hyperlipidemia Maternal Grandfather Stroke Paternal Grandfather Cancer Maternal Grandmother Kidney malignancy Paternal Grandmother Cancer Son Essential hypertension Hyperlipidemia Son No problems noted. Daughter No problems noted. Social History Smoking/Tobacco Use Status: Former Tobacco Use Quit Date: 10/14/83 Tobacco: How many years used: 15 Quit status: quit date established Second Hand Exposure: Yes Smoking risk assessment performed?: Yes Alcohol Intake: current Alcohol Intake frequency: holidays/special occasions only Alcohol type: wine Drug use: Never Substance use type: does not use Adopted: No Caregiver/Support person: No Foster care: No Household members: other Details: grandson Housing: house Number of Children: 3 number of grandchildren: 4 Communication Needs: None Do you need help understanding health information?: Rarely Pets and animals: No Sexually active: No Do you think of yourself as: straight/heterosexual Current gender identity: female What is your relationship status?: How often do you talk on the phone with friends or family?: three or more times per week How often do you get together with friends or relatives?: three or more times per week How often do you attend restoration or yazidism services?: 4 or more times per year Do you belong to any clubs or organized social groups?: yes Panel score (0-1 are the most socially isolated patients): 3 What type of physical activity do you participate in: walking Duration: 15-30 minutes/day Frequency: daily [place]/Samaritan: Nondenominational Special [place] needs: No Agree to transfusion: Yes Seatbelt use: always Drive intox or ride w/intox horse and wagon driver: No Working smoke detector in home: Yes Carbon monox detector in home: Yes Firearms in home: Yes Firearms unloaded and locked: Yes Do you feel safe at home: Yes Do you feel safe in your relationship?: Yes Victim of physical abuse: No Victim of emotional abuse: No Victim of sexual abuse: No Would you like helpful sources: No
--- NOTE | 2025-04-08 18:13 | PGE_ITS ---
Date of Service Date of service: 04/08/25 Time of Service: 18:13 Assessment and Plan Assessment and plan (1) GI bleeding: Status: Chronic Assessment and plan: I had hoped to get Ms. Joe into [facility] for resection of her colon cancer. Unfortunately, they are at capacity. However, we have been able to secure 4 units of crossmatched blood for her, and in that regard, with another episode of bleeding, I think proceeding with right hemicolectomy here is the most reasonable plan. I talked to her and her son at length, and discussed the nature of the operation and what to expect in terms of the risks and the recovery. I think they have a good understanding of this. Obviously, the results of the CT scan of the chest are disappointing, but again, with ongoing bleeding, I do not think delaying surgery any longer makes sense. Certainly, the lung nodules can be worked up after the fact, we can deal with that 1 step at a time. We will plan for right hemicolectomy tomorrow. Subjective Subjective Interval history since last seen: Zeny is feeling a little better after transfusion of packed red blood cells. She underwent a CT scan today, as part of routine workup for her newly diagnosed colon cancer. There are multiple bilateral lung nodules, which have some characteristics suspicious for metastatic disease. Exam GI Other: Abdomen is soft, with minimal tenderness on the right side. Objective Last Vital Signs Temp 95.7 F L 04/08/25 08:02 Pulse 78 04/08/25 08:02 Resp 16 04/08/25 08:02 BP 139/64 04/08/25 08:02 Pulse Ox 98 04/08/25 08:02 Laboratory Results - last 24 hr 04/07/25 04/08/25 04/08/25 09:48 06:15 08:31 WBC 10.46 RBC 3.85 L Hgb 10.3 L Hct 32.1 L MCV 83 MCH 26.8 L MCHC 32.1 RDW 15.9 H Plt Count 355 MPV 10.0 Sodium Potassium Chloride Carbon Dioxide Anion Gap BUN Creatinine Est GFR (CKD-EPI 2020) Glucose Calcium Stl C.difficile Tox PCR Negative ABO/Rh O Positive Antibody Screen NEGATIVE Crossmatch See Detail 04/08/25 04/08/25 14:40 Unknown WBC 11.42 H Cancelled RBC 3.78 L Cancelled Hgb 10.2 L Cancelled Hct 31.4 L Cancelled MCV 83 Cancelled MCH 27.0 Cancelled MCHC 32.5 Cancelled RDW 15.9 H Cancelled Plt Count 346 Cancelled MPV 9.9 Cancelled Sodium 140 Potassium 4.1 Chloride 105 Carbon Dioxide 24.1 Anion Gap 10.9 BUN 27 H Creatinine 1.4 H Est GFR (CKD-EPI 2020) 37.33 Glucose 138 H Calcium 9.4 Stl C.difficile Tox PCR ABO/Rh Antibody Screen Crossmatch PAWSS Have you Been Recently Intoxicated or Drunk Within the Last 30 days?: No Have you Ever Experienced Previous Episodes of Alcohol Withdrawal?: No Have you ever Experienced Withdrawal Seizures?: No Have you ever Experienced Delirium Tremens(DT)s?: No Have you ever undergone Alcohol Rehabilitation Treatment (i.e, inpt ot outpatient treatment programs)?: No Have you ever Experienced Blackouts?: No Have you ever Combined Alcohol with other Downers within the last 90 days?: No Have you ever Combined Alcohol with any other Substance of Abuse during the last 90 days?: No Positive Blood Alcohol level on Presentation? [PCS.BAL]: No Evidence of Increased Autonomic Activity (i.e. HR>120, tremor, sweating, agitation, nausea)?: No Result: 0 Time Spent with Patient Time Spent with Patient: 35-49 minutes Time was spent: preparing to see the patient(eg.review tests), ordering medications,tests, procedures, referring, communicating with other health home care giver, indepentently interpreting results and counseling the patient
[2025-04-08] MEDS: Ciprofloxacin 500 MG TAB PO (19:54)
[2025-04-08 20:02] VITALS: BP 138/78; PULSE 70; RESP 18; TEMP 36.4; O2SAT 98
[2025-04-08] MEDS: Lactated Ringers 1,000 ML 75 ML IV (21:08)
[2025-04-09] VITALS (36 sets, daily range): BP systolic 91–150; BP diastolic 35–73; PULSE 65–109; RESP 11–29; TEMP 36.3–36.8; O2SAT 83–100; BMI 29.8
[2025-04-09] MEDS: metroNIDAZOLE 500 MG TAB PO ×2 (02:03→08:32)
[2025-04-09 06:56] LABS: Abs Immature Grans 0.09 10^3/uL (0.0-0.06); HCT 30.8 % (36.0-46.0); HGB 9.9 g/dL (11.2-15.7); Immature Grans % 0.9 %; MCH 27.1 pg (27.0-33.0); MCHC 32.1 % (32.0-36.0); MCV 84 fL (80-95); MPV 10.2 fL (8.0-11.0); Platelet Count 362 10^3/uL (130-400); RBC 3.65 10^6/uL (3.93-5.22); RDW 16.0 % (11.7-14.6); RDW-SD 49.4 fL; WBC 10.27 10^3/uL (4.4-10.8)
[2025-04-09 07:12] LABS: Anion Gap 10.4 mmol/L (3-11); BUN 23 mg/dL (7-18); CO2 25.6 mmol/L (21.0-32.0); Calcium 9.1 mg/dL (8.5-10.1); Chloride 104 mmol/L (98-107); Estimated GFR 40.80 (mL/min/1.73m2); Glucose 85 mg/dL (74-106); Magnesium 1.6 mg/dL (1.8-2.4); Potassium 3.3 mmol/L (3.5-5.1); Sodium 140 mmol/L (136-145)
[2025-04-09] MEDS: Ciprofloxacin 500 MG TAB PO (08:32)
--- NOTE | 2025-04-09 08:44 | W.ANESPRE ---
General Info Date of Service Date Performed: 04/09/25 Height: 5 ft 1 in Weight: 71.713 kg Body Mass Index (BMI): 29.8 Surgical Procedure: Operation Date: 04/09/25 14:20 Proposed Procedure Side Surgeon p Open Right Hemicolectomy Right Shady Knox MD Meds Allergies and Home Medications Allergies Allergy/AdvReac Type Severity Reaction Status Date / Time doxazosin Allergy Severe RASH Verified 04/07/25 09:37 nickel Allergy Severe SEVERE RASH Verified 04/07/25 09:37 lisinopril Allergy Intermediate HIVES Verified 04/07/25 09:37 Beta-Blockers AdvReac Intermediate WEAKNESS Verified 04/07/25 09:37 (Beta-Adrenergic Bloc Home Medication ?Medication ?Instructions ?Recorded calcium 600 mg (as 2 ea PO DAILY 03/13/13 carbonate)-vitamin D3 20 mcg (800 unit) tablet (Caltrate with Vitamin D3) cholecalciferol (vitamin D3) 25 2,000 unit PO DAILY 03/13/13 mcg (1,000 unit) capsule aspirin 81 mg tablet,delayed 81 mg PO HS 07/22/21 release amoxicillin 500 mg capsule 2,000 mg (4 x 500 mg) PO ONCE #8 03/13/24 caps amlodipine 5 mg tablet 5 mg PO DAILY #90 tab-caps 09/14/24 escitalopram oxalate 10 mg tablet 10 mg PO QAM #90 tab-caps 09/14/24 (Lexapro) losartan 50 mg tablet 50 mg PO BID #180 tabs 09/14/24 metoprolol succinate 25 mg See Rx Instructions .Route 09/14/24 tablet,extended release 24 hr .COMPLEX #90 tabs tramadol 25 mg tablet See Rx Instructions PO BID PRN 03/23/25 pain #28 tabs hydrochlorothiazide 25 mg tablet 25 mg PO DAILY #90 tabs 04/01/25 prednisone 5 mg tablet 7 mg PO DAILY 04/07/25 Current Visit Medications: Current Medications Generic Name Dose Route Start Last Admin Trade Name Freq PRN Reason Stop Dose Admin Acetaminophen 650 mg 04/07/25 23:15 04/08/25 13:22 Acetaminophen 325 Mg Tab PO 650 mg Q4H PRN PRN Administration Amlodipine Besylate 5 mg 04/08/25 08:30 04/08/25 08:18 Amlodipine 5 Mg Tab PO 5 mg On Hold: 04/09/25 08:30 DAILY ZHENG Administration Calcium/Vitamin D 1 tab 04/08/25 08:30 04/08/25 08:18 Calcium 600mg/Vit D 200u Tab PO 1 tab On Hold: 04/09/25 08:30 DAILY ZHENG Administration Cholecalciferol 2,000 units 04/08/25 08:30 04/08/25 08:19 Cholecalciferol (Vitamin D3) 1,000 Unit Tab PO 2,000 units On Hold: 04/09/25 08:30 DAILY ZHENG Administration Ciprofloxacin HCl 500 mg 04/08/25 20:00 04/09/25 08:32 Ciprofloxacin 500 Mg Tab PO 04/09/25 19:59 500 mg BID ZHENG Administration Escitalopram Oxalate 10 mg 04/08/25 08:30 04/09/25 08:33 Escitalopram 10 Mg Tab PO Not Given QAM ZHENG Hydrochlorothiazide 25 mg 04/08/25 08:30 04/08/25 08:18 Hydrochlorothiazide 25 Mg Tab PO 25 mg On Hold: 04/09/25 08:30 DAILY ZHENG Administration Hydromorphone HCl 1 mg 04/09/25 00:02 Hydromorphone 2 Mg/Ml Syr IVP Q6H PRN PRN Ringer's Solution 1,000 mls @ 75 mls/hr 04/08/25 20:00 04/08/25 21:08 IV 75 mls/hr INFUSION [facility] Administration IV Miscellaneous Supplies 1 each 04/07/25 13:48 Iv Access IV DIRECTED [facility] Losartan Potassium 50 mg 04/07/25 20:00 04/08/25 19:54 Losartan 50 Mg Tab PO 50 mg On Hold: 04/09/25 08:30 BID ZHENG Administration Metoprolol Succinate 25 mg 04/08/25 08:30 04/08/25 08:18 Metoprolol Cr 25 Mg Tabcr PO 25 mg DAILY ZHENG Administration Metronidazole 500 mg 04/08/25 18:00 04/09/25 08:32 Metronidazole 500 Mg Tab PO 04/09/25 12:01 500 mg Q8H ZHENG Administration Prednisone 5 mg 04/08/25 08:30 04/08/25 08:18 Prednisone 5 Mg Tab PO 5 mg DAILY ZHENG Administration Prednisone 2 mg 04/08/25 08:30 04/08/25 08:18 Prednisone 1 Mg Tab PO 2 mg DAILY ZHENG Administration Sodium Chloride 0 ml 04/07/25 13:48 Normal Saline Flush 10 Ml Syr IVP PRN PRN Sodium Chloride 0 ml 04/07/25 20:00 04/08/25 19:54 Normal Saline Flush 10 Ml Syr IVP 10 ml BID ZHENG Administration Sodium Chloride 0 ml 04/07/25 13:48 Normal Saline 10 Ml Vial IJ DIRECTED PRN Sodium Cl/Sod Bicarb/Potass Cl/PEG 4,000 ml 04/08/25 18:00 04/08/25 18:23 Gavilyte-G 4000 Ml Btl PO 4,000 ml DIRECTED ZHENG Administration Tramadol HCl 25 - 50 mg 04/07/25 16:17 Tramadol 50 Mg Tab PO On Hold: 04/09/25 00:01 BID PRN PRN PFSH Active Problems Active Problems: Problem Status Onset Code GI bleeding Chronic K92.2 On deep vein thrombosis (DVT) prophylaxis Acute Z79.899 CKD (chronic kidney disease) Chronic N18.9 Lower gastrointestinal bleed Acute K92.2 Adenocarcinoma, colon Acute C18.9 Anemia Chronic D64.9 Weight loss, abnormal Acute R63.4 Thyroid goiter Acute E04.9 Vitamin D deficiency Chronic 08/09 E55.9 Hyperlipidemia Chronic E78.5 Giant cell arteritis Chronic 10/27/16 M31.6 Essential hypertension Chronic 10/19/13 I10 Chronic obstructive lung disease Chronic 18/07 J44.9 Asthma Acute J45.909 Osteoporosis Chronic M81.0 Physician orders for life-sustaining treatment (POLST) form indicates patient wish for [id number] status Acute Z66 Knee pain, right Acute M25.561 S/P TAVR (transcatheter aortic valve replacement) Acute Z95.2 Sciatica of left side due to displacement of lumbar intervertebral disc Acute M51.16 Lumbar stenosis with neurogenic claudication Acute M48.062 Bruising Acute T14.8XXA Medical History Medical History (Updated 04/07/25 @ 14:48 by JEFFERSON Aguero) Facial lesion Advance care planning Weight loss Diarrhea Incompatible blood transfusion Anti E antigen - need to order special blood for transfusions Pre-op testing Hip pain, right E. coli UTI Sepsis due to Escherichia coli Elevated troponin Hypokalemia Acute kidney injury superimposed on chronic kidney disease Shortness of breath Discharge planning issues DVT prophylaxis Acute UTI Sepsis Lumbar stenosis with neurogenic claudication MRI 06/06/21 - L3-4 herniation with severe stenosis Leg wound, left Back pain Aortic stenosis Ganglion of tendon sheath (01/11/05) History of unilateral nephrectomy Impacted cerumen Primary malignant neoplasm of lung (09/12/83) Swelling of left lower extremity (02/17/15) H/O unilateral nephrectomy left; congenital deformity Impacted cerumen Asthma 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; 1983 Lobectomy; 03/20 Neg CXR & Barium swallow Ganglion of tendon sheath 01/11/05 Ganglion cyst of R foot Left leg swelling 02/17/15 Neck mass see US 11/01 Anxiety (08/30/15) Cataract (11/19/16) Chronic cough Insomnia (10/08/17) Mass of right side of neck (02/28/16) Right hip pain (09/06/15) Skin lesion of face (08/30/15) 4mm by 2mm left upper lip Surgical History Surgical History (Updated 03/30/25 @ 08:32 by Arina Ceja) Hx of colonoscopy with polypectomy (~03/2025) biopsy Status post cholecystectomy Status post lobectomy of lung S/P cholecystectomy S/P lobectomy of lung 10/14/83 left upper lobectomy; 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 Tobacco Smoking/Tobacco Use Status: Former Tobacco Use Passive smoking exposure: No Second hand exposure: Yes Alcohol Alcohol Intake: current Alcohol intake frequency: holidays/special occasions only Alcohol type: wine Substance Use Substance use: Never Substance use type: does not use Vital Signs and Lab Results Vital Signs Most Recent Vital Signs in EMR: Most Recent Vital Signs Temp Pulse Resp BP Pulse Ox 36.8 C 77 14 141/61 H 98 04/09/25 07:35 04/09/25 07:35 04/09/25 07:35 04/09/25 07:35 04/09/25 07:35 Lab Results 04/09/25 06:32 04/09/25 06:32 Blood Type / Crossmatch: Antibody Screen NEGATIVE 04/07/25 Crossmatch See Detail 04/07/25 Complete Blood Count: WBC, (4.4-10.8) 11.11 10^3/uL H Today, 13:42 RBC, (3.93-5.22) 3.58 10^6/uL L Today, 13:42 Hgb, (11.2-15.7) 9.7 g/dL L Today, 13:42 Hct, (36.0-46.0) 30.1 % L Today, 13:42 Plt Count, (130-400) 332 10^3/uL Today, 13:42 VBG Lactate, (<or=2.0) 1.2 mmol/L 04/07/25, 09:48 Complete Metabolic Panel: Sodium, (136-145) 140 mmol/L Today, 06:32 Potassium, (3.5-5.1) 3.3 mmol/L L Today, 06:32 Chloride, (98-107) 104 mmol/L Today, 06:32 Carbon Dioxide, (21.0-32.0) 25.6 mmol/L Today, 06:32 BUN, (7-18) 23 mg/dL H Today, 06:32 Creatinine, (0.55-1.02) 1.3 mg/dL H Today, 06:32 Est GFR (CKD-EPI 2020), (mL/min/1.73m2) 40.80 Today, 06:32 Magnesium, (1.8-2.4) 1.6 mg/dL L Today, 06:32 Calcium, (8.5-10.1) 9.1 mg/dL Today, 06:32 Albumin, (3.4-5.0) 2.9 g/dL L 04/07/25, 09:48 Glucose, (74-106) 85 mg/dL Today, 06:32 Hemoglobin A1c, (<5.7) 6.1 % H 03/23/25, 10:00 Liver Function Panel: ALT, (14-59) 21 U/L 04/07/25, 09:48 AST, (15-37) 12 U/L L 04/07/25, 09:48 Coagulation Panel: INR, (0.9-1.1) 1.3 H 04/07/25, 09:48 PT, (9.1-11.1) 12.6 sec H 04/07/25, 09:48 APTT, (20.6-30.2) 23.3 sec 04/07/25, 09:48 Pancreas Panel: Lipase, (<78) 34 U/L 04/07/25, 09:48 Thyroid Panel: TSH, (0.36-3.74) 1.37 uIU/mL 03/23/25, 10:00 Imaging and Studies Imaging and Studies Study information below may be from another EMR and interpreted by another provider. Please see original notes in EMR for more complete details. EKG Summary: 01/21/22: EKG (External [facility]): NSR Echocardiogram Summary: 01/19/22: ([facility]): Post TAVR, EF 68%, peak gradient across transcatheter valve 20mmHg, mean gradient 10mmHg, No other significant valvular lesions. Anesthesia Assessment and Plan Anesthesia History Personal History: No History of Anesthesia Complications Family History: No Family History of Anesthesia Complications Exercise Tolerance Exercise Tolerance: Metabolic Equivalents<4 Pertinent Negatives Pertinent Negatives: No Major Cardiovascular Symptoms or Complaints Cardiac & Pulmonary Exam Cardiac Exam: Heart Murmur Present Pulmonary Exam: Clear Bilateral Breath Sounds Implantable Cardiac Device Does patient have a Pacemaker or an ICD?: No Airway Exam Known Difficult Airway: No Mallampati Class: 2 Mouth Opening: Normal (> 3cm) Thyromental Distance: Greater than 3 cm Neck Range of Motion: Full ROM Neck Circumference: Normal Teeth Condition: Normal Dentition (Bottom) and Removable Dentures/Plates Upper ASA Classification ASA Score: ASA 4 Emergency Case?: No NPO Status NPO Status: NPO Clears >2 hours, Solids >8 hours Anesthesia Plan Resuscitation Status: DNR Fully Suspended During Perioperative Period Anesthesia Technique: General Anesthesia Airway Planned: Endotracheal Tube Monitors Used: Standard Monitors, Arterial Line, Central Line (As indicated) and SedLine Preoperative Comments:: Patient admitted earlier this week for repeated rectal bleeding. Patient has received 2/units/blood during this admission. Greeted in room and currently undergoing bowel prep for upcoming procedure. Patient continues to be in good spirits, son will be in shortly. Patient is overdue to echocardiogram surveillance at [facility], but given urgency of symptoms/procedure, plan to proceed with definitive treatment for patient. Reviewed multiple risk factors to include current bowel mass with possible meds to the lungs (with previous surgery).
--- NOTE | 2025-04-09 10:02 | PDOC.CMPRO ---
Date of service: 04/09/25 Time of Service: 10:02 Care Management Progress Note Progress Note Text Progress Note Text: Zeny was sitting up in bed, visiting with her son, Shady, when CM met with her today. Both were extremely pleasant. Zeny denied being nervous about her upcoming surgery, she stated that she has complete trust in the surgical team. She is a little worried about how well she will heal after the surgery, however. Zeny was told that her surgery would not be until after 2 pm. Discharge Potential Discharge Needs: PCP F/U Appt and Surgical F/U Appt Anticipated Barriers to Discharge: None Identified Patient/Family Education Needs: Review discharge instructions, discuss Ask Me Three Transportation: Private vehicle Plan: Anticipate Zeny will be discharged home with a resumption of home health services. She currently receives nursing and PT and could benefit from the addition of OT and [employer]M [employer]. She will follow up with her surgeon, PCP and plan of care and transport home with family. CM will follow and continue to support discharge planning efforts. Social Determinants of Health Screening Social Determinants of health last assessed in clinic: 04/09/25 Will the Patient Participate in the Screening?: Yes Do you worry about having a steady place to live?: no Problems where you live: no known problems In the past 12 months, have you had to go without electric, gas, oil or water in your home?: no 1. Within the past 12 months, we worried whether our food would run out before we got money to buy more.: Don't know/refused 2. Within the past 12 months, the food we bought just didn't last and we didn't have money to get more.: Don't know/refused Has lack of transportation kept you from medical appointments or from doing things needed for daily living?: no Has anyone in your life made you feel unsafe or unsupported?: no How hard is it for you to pay for the very basics like food, housing, medical care, and heating? Would you say it is:: Not hard at all Do you want help finding or keeping work or a job?: I do not need or want help If for any reason you need help with day-to-day activities such as bathing, preparing meals, shopping, managing finances, etc., do you get the help you need?: I get all the help I need How often do you feel lonely or isolated from those around you?: Never Do you speak a language other than [place] Islander at home?: No Does the patient want assistance with any of the above?: No
[2025-04-09] MEDS: POTASSIUM CHLORIDE 20 MEQ/100 ML BAG 50 MEQ IV_INF (13:29)
[2025-04-09] MEDS: MAGNESIUM SULFATE 4 GM/100 ML BAG IV_INF (13:31)
[2025-04-09 13:50] LABS: HCT 30.1 % (36.0-46.0); HGB 9.7 g/dL (11.2-15.7); MCH 27.1 pg (27.0-33.0); MCHC 32.2 % (32.0-36.0); MCV 84 fL (80-95); MPV 10.1 fL (8.0-11.0); Platelet Count 332 10^3/uL (130-400); RBC 3.58 10^6/uL (3.93-5.22); RDW 16.0 % (11.7-14.6); RDW-SD 49.4 fL; WBC 11.11 10^3/uL (4.4-10.8)
[2025-04-09] MEDS: ELECTROLYTE-R SOLUTION 1,000 ML 100 ML IV (15:26)
[2025-04-09] MEDS: ceFAZolin 2 GM/50 ML BAG 100 GM (15:47)
--- NOTE | 2025-04-09 15:48 | W.ANESVAS ---
Midline Placement Date Performed: 04/09/25 Procedure Time: 15:00 Requesting Provider: Maru Crawford Procedure Location: PACU Sedation Given (Indicate Dose Given): No Sedation given Patient Mental Status: Awake Sterility: Hand Hygiene, Surgical Cap, Surgical Mask, Sterile Gloves, Sterile Drape/Sheet and Chlorhexidine Laterality: Right Insertion Site: Basilic Midline Device: PowerGlide Pro 20G Catheter Length: 10 cm Midline Procedure Procedure: 1% Lidocaine to skin and subcutaneous tissue with 25g needle and Catheter placed without resistance Dressing: Tegaderm Applied and Statlock Applied Blood Return: Present Flushes: Easily Ultrasound: Sterile probe cover and gel used Ultrasound Image Saved?: Yes Number of Attempts (See previous attempts in note section): 1 Procedure Tolerated: No Complications Procedure Outcome: Successful Procedure Comment:: time of procedure is as indicated on the US picture. Performed By: Emir Green
[2025-04-09] MEDS: Bupivacaine LIPOSOME/PF 133 MG/10 ML VIAL IJ (16:12)
[2025-04-09] MEDS: Bupivacaine 0.25% Pres-Free 30 ML VIAL (16:12)
--- NOTE | 2025-04-09 16:24 | W.ANESVAS ---
Arterial Line Placement Date Performed: 04/09/25 Procedure Time: 14:48 Procedure Location: PACU Requesting Provider: Maru Crawford Timeout Performed: Yes Sedation Given (Indicate Dose Given): No Sedation given Patient Mental Status: Awake Sterility: Hand Hygiene, Surgical Cap, Surgical Mask, Sterile Gloves and Chlorhexidine Laterality: Right Insertion Site: Radial Arterial Line Catheter: 20G Arrow Arterial Line Procedure: 1% Lidocaine to skin and subcutaneous tissue with 25g needle, Vessel accessed with needle, Vessel accessed with catheter over needle, Guidewire placed with ease, Catheter placed without resistance and Guidewire removed Dressing: Tegaderm Applied and Mastisol Used Ultrasound: Sterile probe cover and gel used Ultrasound Image Saved?: No Number of Attempts (See previous attempts in note section): 1 Procedure Tolerated: No Complications and Patient tolerated well Procedure Outcome: Successful Performed By: Maru Crawford
--- NOTE | 2025-04-09 16:25 | CHAPLAIN ---
I had a brief visit with Zeny this morning to bring her a prayer shawl. She is going to have surgery today. A family member or friend was with her. I let her know wireless sales associate is available any time.
--- NOTE | 2025-04-09 16:56 | BOWEL_PTH ---
PATIENT: Zeny Joe LOC: U#:[id number] AGE/SX: 84/F ROOM: [id number] RE04/07/[address]: Ravi Jaramillo : 1940 BED: A DIS: 04/26/2025 SPEC #: [id number] RECD: 04/12/25 12:51 STATUS: DEEPALI REQ #: [id number] CECILY: 04/09/25 16:[address]: Ravi Jaramillo DEPT: Surgical Specimen RECD BY: Sbaina Lozano ENTERED: 04/12/25 12:52 SP TYPE: Bowel OTHR DR: Zoey Lucas MD, DC Shady Knox MD Tissues: 1 - PERITONEUM/EMEKA BIOPSY 2 - BOWEL RESECTION(OTHER) Procedures: GROSS AND MICRO LEVEL 4 IMMUNOPEROXIDASE STAIN GROSS AND MICRO LEVEL 6 Comments: [id number]
--- NOTE | 2025-04-09 18:06 | W.PM.OP ---
Operative Note Operative Note PRE-OP DIAGNOSIS: Colon cancer POST-OP DIAGNOSIS: same PROCEDURE: Right hemicolectomy with ileocolic anastomosis SURGEON: Shady Knox APPLICATION DEVELOPMENT TEAM LEAD: Damaris Lewis ANESTHESIA TYPE: Local By Surgeon, General LMA/ETT and Other (Open tap blocks) Refer to Anesthesia Record ESTIMATED BLOOD LOSS: 100 PATHOLOGY: other (Right colon, peritoneal implant) COMPLICATIONS: None Patient was transported to: PACU Patient's condition: stable Indications: Debby is an 84-year-old woman with a known cecal adenocarcinoma. She was awaiting elective right hemicolectomy when she developed gastrointestinal bleeding. She was admitted to the hospital, and resuscitated with packed red blood cell products. I recommend that we proceed with more urgent right hemicolectomy given that this is the second episode of gastrointestinal bleeding from this tumor Findings: Palpable mass in the cecum, with 1 separate peritoneal nodule on the small bowel mesentery. Procedure Description: I met with Zeny in the preoperative area, and we reviewed the plan for the operation. I reviewed the risks of the operation that we had discussed yesterday, and I believe she had a good understanding of this. She reaffirmed her informed consent. We then went back to the operating room, and she was assisted onto the OR table. She was padded and supported appropriately. General endotracheal anesthesia was initiated, and a Callaway urinary catheter was inserted using aseptic technique. The anterior abdominal wall was then prepped and draped. I anesthetized the midline using local anesthetic mixed with Exparel. We made a longitudinal incision, and dissected down to the fascia which was opened along the length of the incision. The peritoneum was grasped, sharply incised, and elongated to complement the incision. There were some adhesions of greater omentum to the right mid abdomen consistent with her previous surgeries. Adhesiolysis was performed to gain adequate exposure. There is a palpable mass in the cecum, with some inflammatory changes around the base of the cecum mostly to the right lower quadrant. The distal portion of the terminal ileum is tethered downward slightly. There does not appear to be carcinomatosis in this area. The liver was palpated, and the external surface was examined. This appeared normal. I did not see any other obvious disease anywhere within the peritoneal reflections over the anterior abdominal wall. Next, I retracted the greater omentum cephalad. This was divided along the midportion of the colon, and the right side was taken off the greater curvature of the stomach. The cecum was then gently retracted medially, and the lateral attachments were mobilized along the white line of Toldt. This dissection was taken down along the underside of the ascending colon mesentery and lifted up off the retroperitoneum and the duodenum. The dissection was brought down around the base of the cecum, and the adhesions of the distal small bowel were freed. This allowed the base of the cecum, appendix, mesoappendix, and terminal ileum to reflect medially. I took this back to a healthy portion of terminal ileum, and a small defect was made in the mesentery. A GEMMA stapler was used to divide the terminal ileum. With all of the ileocecal distribution mobilized, I turned my attention back to the mid transverse colon. The mesentery was palpated, and I selected a portion to the right side of the middle colic artery for division. Again, small defect was made in the mesentery, and a GEMMA stapler was used to divide the transverse colon. The mesocolon was then divided with sequential bites of the LigaSure device taking great care to ensure high ligation of the right colic artery. This was divided with the LigaSure, and oversewn with silk suture. The remaining portion of the hepatic flexure mesentery and ascending colon mesentery was then completely with the LigaSure. The specimen was passed off the field for preservation. The field was irrigated. It was hemostatic. The most natural orientation for restitution of continuity appeared to be a [id number] antiperistaltic anastomosis. The ileum was pexied against the antimesenteric portion of the transverse colon, and the corners of the suture lines were excised. GEMMA stapler was used to create the ileocolostomy, which was mildly patent and hemostatic. The common enterotomy was closed in 2 layers with a 3-0 PDS, 3-0 interrupted silk sutures imbricating the mucosal closure the field was then all irrigated. There was no spillage during any of the resection. Surgical field appeared hemostatic. I closed the fascia with running 2-0 PDS from the top and bottom. Subcutaneous tissues were irrigated. They were also hemostatic. Some interrupted Vicryl sutures were used to obliterate the space, and the skin was closed with surgical stapler. A anthony negative pressure wound dressing was applied, and Zeny was awoken, extubated, and transferred to the recovery unit. Date of Procedure: 04/09/25
[2025-04-09] MEDS: fentaNYL 100 MCG/2 ML VIAL IVP ×2 (18:20→18:26)
[2025-04-09] MEDS: fentaNYL 100 MCG/2 ML VIAL (18:20)
--- NOTE | 2025-04-09 18:37 | W.PM.PROGNOT ---
Date of Service Date of service: 04/09/25 Time of Service: 12:30 Assessment and Plan Assessment and plan (1) Lower gastrointestinal bleed: Start date: 04/09/25 Status: Acute Assessment and plan: As per point 2 and 1 Might be d/t biopsy site bleeding Surgical consult : recommended [facility] [place] - spoke to Dr. Vazquez and patient was declined on 04/08 -no bed and non-emergent- missing component of pathology report regarding the adenocarcinoma of the colon- also mentioned that referral received 2 days prior -Dr Knox is planing Surgery this p.m -NPO since midnight with plan for surgery around 1400 -Full Liquid diet resumed s/p surgery by Dr. Knox -Ongoing hematochezia with diarrhea -- H&H at 1345 she had remained stable since yesterday -Ongoing IVF at 80cc/hr until enteral intake is tolerated S/p surgery as per discussion with Dr. Knox the patient will be in ICU overnight for better pain management, increased frequency of VS monitoring, but not meeting admit criteria and is stable -Read anesthesia and surgery notes please Telemetry ordered pain management : scheduled APAP as per surgery PRN IV hydromorphone low dose- adjust as needed and transition to oral when able (2) Tachycardia: Start date: 04/09/25 Status: Acute Assessment and plan: Metoprolol to be given this morning was held by RN; the patient is presenting status post surgery with tachycardia 10 3-1 09 Will give 1 dose of metoprolol tartrate 25 mg PO and continue metoprolol succinate in the morning (3) Adenocarcinoma, colon: Start date: 04/09/25 Status: Acute Assessment and plan: Recent Dx form 03/26/[address] ordered for metastasis r/o:There are multiple scattered bilateral tiny pulmonary nodules. Largest nodule is in the posterior right upper lobe which measures 9 by 4 millimeters. The findings are suspicious for metastatic disease. (4) Anemia: Status: Chronic Assessment and plan: PRBC tranfusion with T&C for anti-E antigen Ongoing Serial H&H 4 units of PRBC available no blood given in the OR d/t GIB in the setting of Point 1 and 2 (5) Hyperlipidemia: Status: Chronic Assessment and plan: No statin listed onhome meds list (6) Giant cell arteritis: Status: Chronic Assessment and plan: On home steroid regimen Might need additional dose of steroid in the setting of stress and surgical intervention; we will continue to monitor (7) Essential hypertension: Status: Chronic Assessment and plan: holding BP meds prior to surgery in the setting of possible blood loss and hypotension will resume after surgery (8) Hypomagnesemia: Status: Acute Assessment and plan: supplementation given - Mg in AM (9) Chronic obstructive lung disease: Status: Chronic Assessment and plan: Continue ongoing home meds IS and acapella s/p OR (10) S/P TAVR (transcatheter aortic valve replacement): Status: Acute Assessment and plan: On ASA only - bio-prosthetic valve continue to hold d/t acute GIB (11) Hypokalemia: Assessment and plan: supplementation given BMP at 21:00 (12) CKD (chronic kidney disease): Status: Chronic Assessment and plan: Continue to monitor BMP status post OR and in AM (13) On deep vein thrombosis (DVT) prophylaxis: Status: Acute Assessment and plan: Ongoing TEDS discussed with Dr. Berg Subjective Subjective Patient reports: no new complaints, still having pain, voiding w/o difficulty, bowel movement, diarrhea, blood in stool and other (Reports fatigue, abdominal tenderness and cramping, n.p.o. for surgery this p.m.); denies nausea, vomiting, shortness of breath or fever Exam Narrative Exam Narrative: Alert and oriented X4, no acute distress, clear lungs,. S1, S2 , no murmur, abdomen is non-distended , soft with diffuse tenderness, oral mucous membranes are moist, moves all 4 ext Objective Last Vital Signs Temp 36.4 C L 04/09/25 18:26 Pulse 103 H 04/09/25 18:36 Resp 15 04/09/25 18:36 BP 114/35 L 04/09/25 18:36 Pulse Ox 96 04/09/25 18:36 Laboratory Results - last 24 hr 04/07/25 04/09/25 04/09/25 09:48 06:32 13:42 WBC 10.27 11.11 H RBC 3.65 L 3.58 L Hgb 9.9 L 9.7 L Hct 30.8 L 30.1 L MCV 84 84 MCH 27.1 27.1 MCHC 32.1 32.2 RDW 16.0 H 16.0 H Plt Count 362 332 MPV 10.2 10.1 Immature Gran % 0.9 Neutrophils % 72.0 Lymphocytes % 14.0 Monocytes % 10.2 Eosinophils % 1.9 Basophils % 1.0 Nucleated RBC % 0.0 Absolute Neutrophils 7.39 H Absolute Lymphocytes 1.44 Absolute Monocytes 1.05 H Absolute Eosinophils 0.20 Absolute Basophils 0.10 Sodium 140 Potassium 3.3 L Chloride 104 Carbon Dioxide 25.6 Anion Gap 10.4 BUN 23 H Creatinine 1.3 H Est GFR (CKD-EPI 2020) 40.80 Glucose 85 Calcium 9.1 Magnesium 1.6 L ABO/Rh O Positive Antibody Screen NEGATIVE Crossmatch See Detail PAWSS Have you Been Recently Intoxicated or Drunk Within the Last 30 days?: No Have you Ever Experienced Previous Episodes of Alcohol Withdrawal?: No Have you ever Experienced Withdrawal Seizures?: No Have you ever Experienced Delirium Tremens(DT)s?: No Have you ever undergone Alcohol Rehabilitation Treatment (i.e, inpt ot outpatient treatment programs)?: No Have you ever Experienced Blackouts?: No Have you ever Combined Alcohol with other Downers within the last 90 days?: No Have you ever Combined Alcohol with any other Substance of Abuse during the last 90 days?: No Positive Blood Alcohol level on Presentation? [PCS.BAL]: No Evidence of Increased Autonomic Activity (i.e. HR>120, tremor, sweating, agitation, nausea)?: No Result: 0 Time Spent with Patient Time Spent with Patient: >50 minutes Time was spent: preparing to see the patient(eg.review tests), obtaining and/or reviewing separately otained hiistory, ordering medications,tests, procedures, referring, communicating with other health patient care associate, indepentently interpreting results, counseling the patient and care coordination
--- NOTE | 2025-04-09 19:15 | W.ANESPOSTOP ---
Postoperative Evaluation Date, Time and Location Date Performed: 04/09/25 Time Performed: 18:55 Patient Location: Intensive Care Unit Vital Signs Most Recent Imported Vital Signs: Most Recent Vital Signs Temp Pulse Resp BP Pulse Ox 36.5 C 103 H 20 114/35 L 92 04/09/25 18:41 04/09/25 18:40 04/09/25 18:40 04/09/25 18:36 04/09/25 18:40 Pain Score Most Recent Pain Score: Most Recent Pain Score Pain Level [Generalized] 0 04/07/25 15:52 Pain Level 6 04/09/25 18:41 Assessment Mental Status: Awake (Alert & Oriented to Patient Baseline) Airway and Respiratory Function: Patent airway with normal (patient baseline) respiratory exam Cardiovascular Function: Hemodynamically Stable Hydration Status: Adequately Hydrated Nausea & Vomiting: No Nausea or Vomiting Pain: Pain is Moderate or Severe Postoperative Pain Management: Pain being addressed with medication Peripheral Nerve Block: Patient did not receive a nerve block
[2025-04-09] MEDS: Normal Saline Flush 10 ML SYR IVP (20:07)
[2025-04-09] MEDS: Metoprolol 25 MG TAB PO (20:07)
[2025-04-09] MEDS: ACETAMINOPHEN 1,000 MG/100 ML BAG 400 MG IVPB (20:12)
[2025-04-09] MEDS: HYDROmorphone 2 MG/ML SYR 1 MG IVP (20:16)
[2025-04-09 21:46] LABS: HCT 30.1 % (36.0-46.0); HGB 9.6 g/dL (11.2-15.7); MCH 26.9 pg (27.0-33.0); MCHC 31.9 % (32.0-36.0); MCV 84 fL (80-95); MPV 10.1 fL (8.0-11.0); Platelet Count 340 10^3/uL (130-400); RBC 3.57 10^6/uL (3.93-5.22); RDW 16.1 % (11.7-14.6); RDW-SD 49.3 fL; WBC 20.49 10^3/uL (4.4-10.8)
[2025-04-09 21:58] LABS: Anion Gap 12.1 mmol/L (3-11); BUN 18 mg/dL (7-18); CO2 21.9 mmol/L (21.0-32.0); Calcium 8.1 mg/dL (8.5-10.1); Chloride 105 mmol/L (98-107); Estimated GFR 37.33 (mL/min/1.73m2); Glucose 166 mg/dL (74-106); Potassium 3.9 mmol/L (3.5-5.1); Sodium 139 mmol/L (136-145)
[2025-04-09] MEDS: Normal Saline 500 ML IV (23:08)
[2025-04-09] MEDS: Normal Saline 1,000 ML 100 ML IV (23:08)
[2025-04-10] VITALS (40 sets, daily range): BP systolic 88–153; BP diastolic 46–95; PULSE 59–84; RESP 11–35; TEMP 36.2–36.8; O2SAT 92–99
[2025-04-10] MEDS: ACETAMINOPHEN 1,000 MG/100 ML BAG 400 MG IVPB ×3 (04:37→19:23)
[2025-04-10 07:32] LABS: HCT 27.9 % (36.0-46.0); HGB 8.8 g/dL (11.2-15.7); MCH 27.3 pg (27.0-33.0); MCHC 31.5 % (32.0-36.0); MCV 87 fL (80-95); MPV 10.7 fL (8.0-11.0); Platelet Count 285 10^3/uL (130-400); RBC 3.22 10^6/uL (3.93-5.22); RDW 16.5 % (11.7-14.6); RDW-SD 51.8 fL; WBC 16.92 10^3/uL (4.4-10.8)
[2025-04-10 08:14] LABS: Anion Gap 8.9 mmol/L (3-11); BUN 17 mg/dL (7-18); CO2 24.1 mmol/L (21.0-32.0); Calcium 7.8 mg/dL (8.5-10.1); Chloride 106 mmol/L (98-107); Estimated GFR 40.80 (mL/min/1.73m2); Glucose 130 mg/dL (74-106); Potassium 4.3 mmol/L (3.5-5.1); Sodium 139 mmol/L (136-145)
--- NOTE | 2025-04-10 08:34 | PGE_ITS ---
Date of Service Date of service: 04/10/25 Time of Service: 08:34 Assessment and Plan Assessment and plan (1) Adenocarcinoma, colon: Status: Acute Assessment and plan: All things considered, Marni looks very good this morning. Her hemoglobin is down a bit, but she did receive a fair amount of intravenous fluid over the past 24 hours, and I suspect there is some element of hemodilution here. Otherwise I do not see any clinical indicators of active bleeding. I do like to see her up to the chair moving around a little bit today is much as possible. We can recheck the hemoglobin within the next 24 hours. Certainly, with blood available, it may be reasonable to transfuse given her atypical crossmatch. Alternatively, if she feels well, and her vital signs all remain stable, then I do not see a pressing reason to give blood at this point. When she gets up and moving around a little bit we could get the catheter out Subjective Subjective Interval history since last seen: Zeny looks very good today. She is awake and alert, and has had a little bit of breakfast. She denies any nausea or vomiting. She has not passed any flatus or had any bowel movements yet. Blood pressure was just a little bit low overnight, but responded to some intravenous fluids. Pain has been well- controlled. Exam GI Other: Abdomen is soft and nondistended. She has appropriate incisional tenderness. The anthony dressing is clean. Objective Last Vital Signs Temp 97.3 F L 04/09/25 21:31 Pulse 66 04/09/25 22:31 Resp 12 04/09/25 22:31 BP 95/49 L 04/09/25 22:31 Pulse Ox 97 04/09/25 22:31 Laboratory Results - last 24 hr 04/09/25 04/09/25 04/10/25 13:42 21:35 05:50 WBC 11.11 H 20.49 H 16.92 H RBC 3.58 L 3.57 L 3.22 L Hgb 9.7 L 9.6 L 8.8 L Hct 30.1 L 30.1 L 27.9 L MCV 84 84 87 MCH 27.1 26.9 L 27.3 MCHC 32.2 31.9 L 31.5 L RDW 16.0 H 16.1 H 16.5 H Plt Count 332 340 285 MPV 10.1 10.1 10.7 Sodium 139 Potassium 3.9 Chloride 105 Carbon Dioxide 21.9 Anion Gap 12.1 H BUN 18 Creatinine 1.4 H Est GFR (CKD-EPI 2020) 37.33 Glucose 166 H Calcium 8.1 L 04/10/25 06:45 WBC RBC Hgb Hct MCV MCH MCHC RDW Plt Count MPV Sodium 139 Potassium 4.3 Chloride 106 Carbon Dioxide 24.1 Anion Gap 8.9 BUN 17 Creatinine 1.3 H Est GFR (CKD-EPI 2020) 40.80 Glucose 130 H Calcium 7.8 L PAWSS Have you Been Recently Intoxicated or Drunk Within the Last 30 days?: No Have you Ever Experienced Previous Episodes of Alcohol Withdrawal?: No Have you ever Experienced Withdrawal Seizures?: No Have you ever Experienced Delirium Tremens(DT)s?: No Have you ever undergone Alcohol Rehabilitation Treatment (i.e, inpt ot outpatient treatment programs)?: No Have you ever Experienced Blackouts?: No Have you ever Combined Alcohol with other Downers within the last 90 days?: No Have you ever Combined Alcohol with any other Substance of Abuse during the last 90 days?: No Positive Blood Alcohol level on Presentation? [PCS.BAL]: No Evidence of Increased Autonomic Activity (i.e. HR>120, tremor, sweating, agitation, nausea)?: No Result: 0 Time Spent with Patient Time Spent with Patient: 35-49 minutes Time was spent: preparing to see the patient(eg.review tests), indepentently interpreting results and counseling the patient
[2025-04-10] MEDS: Metoprolol CR 25 MG TABCR PO (08:35)
[2025-04-10] MEDS: Calcium 600mg/Vit D 200U TAB 1 TAB PO (08:35)
[2025-04-10] MEDS: Escitalopram 10 MG TAB PO (08:36)
[2025-04-10] MEDS: hydroCHLOROthiazide 25 MG TAB PO (08:36)
[2025-04-10] MEDS: Cholecalciferol (Vitamin D3) 1,000 UNIT TAB 2000 UNITS PO (08:36)
[2025-04-10] MEDS: HYDROmorphone 2 MG/ML SYR 1 MG IVP ×3 (08:37→19:26)
[2025-04-10] MEDS: amLODIPine 5 MG TAB PO (08:49)
[2025-04-10] MEDS: Normal Saline 1,000 ML 100 ML IV (10:37)
--- NOTE | 2025-04-10 12:24 | W.PM.PROGNOT ---
Date of Service Date of service: 04/10/25 Time of Service: 12:24 Assessment and Plan Assessment and plan (1) Lower gastrointestinal bleed: Start date: 04/09/25 Status: Acute Assessment and plan: - Likely secondary to adenocarcinoma of colon - Now postop day 1 - Hemoglobin down from 9.6-8.8, this is likely secondary to surgical intervention and IV fluids - Will follow-up a.m. hemoglobin and transfuse as needed (2) Tachycardia: Start date: 04/09/25 Status: Acute Assessment and plan: - Resolved (3) Adenocarcinoma, colon: Start date: 04/09/25 Status: Acute Assessment and plan: - POD 1 of resection as noted above -Chest CT showed multiple scattered bilateral tiny pulmonary nodules. Largest nodule is in the posterior right upper lobe which measures 9 by 4 millimeters. The findings are suspicious for metastatic disease. (4) Giant cell arteritis: Status: Chronic Assessment and plan: -On home steroid regimen (5) Essential hypertension: Status: Chronic Assessment and plan: - Resume as tolerated none the patient is postop (6) Hypomagnesemia: Status: Acute Assessment and plan: supplementation given - Mg in AM (7) Chronic obstructive lung disease: Status: Chronic Assessment and plan: -Continue home meds -IS and acapella s/p surgery (8) S/P TAVR (transcatheter aortic valve replacement): Status: Acute Assessment and plan: -On ASA only - bio-prosthetic valve -hold d/t acute GIB (9) Hypokalemia: Assessment and plan: -resolved (10) CKD (chronic kidney disease): Status: Chronic Assessment and plan: -Cr at baseline Subjective Subjective Interval history since last seen: Patient states that she is doing well today. She was looking forward to sitting up in the chair and ambulating with nursing today. Exam Narrative Exam Narrative: Well-appearing older female laying in bed in no acute distress, ANO x 4, heart regular rhythm, lungs good auscultation bilaterally, abdomen soft, very mild midline tenderness at surgical incision site with bandage over top without surrounding erythema or drainage Objective Last Vital Signs Temp 97.3 F L 04/09/25 21:31 Pulse 72 04/10/25 10:01 Resp 25 H 04/10/25 10:01 BP 106/47 L 04/10/25 10:01 Pulse Ox 93 04/10/25 10:01 Laboratory Results - last 24 hr 04/09/25 04/09/25 04/10/25 13:42 21:35 05:50 WBC 11.11 H 20.49 H 16.92 H RBC 3.58 L 3.57 L 3.22 L Hgb 9.7 L 9.6 L 8.8 L Hct 30.1 L 30.1 L 27.9 L MCV 84 84 87 MCH 27.1 26.9 L 27.3 MCHC 32.2 31.9 L 31.5 L RDW 16.0 H 16.1 H 16.5 H Plt Count 332 340 285 MPV 10.1 10.1 10.7 Sodium 139 Potassium 3.9 Chloride 105 Carbon Dioxide 21.9 Anion Gap 12.1 H BUN 18 Creatinine 1.4 H Est GFR (CKD-EPI 2020) 37.33 Glucose 166 H Calcium 8.1 L 04/10/25 06:45 WBC RBC Hgb Hct MCV MCH MCHC RDW Plt Count MPV Sodium 139 Potassium 4.3 Chloride 106 Carbon Dioxide 24.1 Anion Gap 8.9 BUN 17 Creatinine 1.3 H Est GFR (CKD-EPI 2020) 40.80 Glucose 130 H Calcium 7.8 L PAWSS Have you Been Recently Intoxicated or Drunk Within the Last 30 days?: No Have you Ever Experienced Previous Episodes of Alcohol Withdrawal?: No Have you ever Experienced Withdrawal Seizures?: No Have you ever Experienced Delirium Tremens(DT)s?: No Have you ever undergone Alcohol Rehabilitation Treatment (i.e, inpt ot outpatient treatment programs)?: No Have you ever Experienced Blackouts?: No Have you ever Combined Alcohol with other Downers within the last 90 days?: No Have you ever Combined Alcohol with any other Substance of Abuse during the last 90 days?: No Positive Blood Alcohol level on Presentation? [PCS.BAL]: No Evidence of Increased Autonomic Activity (i.e. HR>120, tremor, sweating, agitation, nausea)?: No Result: 0 Time Spent with Patient Time Spent with Patient: >50 minutes Time was spent: preparing to see the patient(eg.review tests), obtaining and/or reviewing separately otained hiistory, ordering medications,tests, procedures, referring, communicating with other health special needs child caregiver, indepentently interpreting results, counseling the patient and care coordination
[2025-04-10] MEDS: Normal Saline Flush 10 ML SYR IVP (16:10)
--- NOTE | 2025-04-10 18:20 | W.PC.ACHO ---
Registration Status: ADM IN Primary Language: Preferred Language: Italian ED Information & Data Chief Complaint GI Bleed 04/07/25 10:44 Triage Note Pt had diarrhea x3 since 04/07/25 09:27 0200 with bright red blood. Pt reporting dizziness and stomach cramping. Medical / Surgical History (Last Updated 04/01/25 @ 07:24 by Zoey Lucas MD, [place]) Facial lesion Advance care planning Weight loss Diarrhea Incompatible blood transfusion Pre-op testing Hip pain, right E. coli UTI Sepsis due to Escherichia coli Elevated troponin Hypokalemia Acute kidney injury superimposed on chronic kidney disease Shortness of breath Discharge planning issues DVT prophylaxis Acute UTI Sepsis Lumbar stenosis with neurogenic claudication Leg wound, left Back pain Aortic stenosis Ganglion of tendon sheath (01/11/05) History of unilateral nephrectomy Impacted cerumen Primary malignant neoplasm of lung (09/12/83) Swelling of left lower extremity (02/17/15) H/O unilateral nephrectomy Impacted cerumen Asthma Primary malignant neoplasm of lung Ganglion of tendon sheath Left leg swelling Neck mass Anxiety (08/30/15) Cataract (11/19/16) Chronic cough Insomnia (10/08/17) Mass of right side of neck (02/28/16) Right hip pain (09/06/15) Skin lesion of face (08/30/15) (Last Updated 03/30/25 @ 08:32 by Arina Ceja) Hx of colonoscopy with polypectomy (~03/2025) Status post cholecystectomy Status post lobectomy of lung S/P cholecystectomy S/P lobectomy of lung Nephrectomy Lobectomy (~1983) Cholecystectomy (~1979) Extraction of cataract Most Recent Vital Signs Temperature 36.6 C 04/10/25 15:55 Temperature Source Temporal Artery Scan 04/09/25 19:00 Pulse 73 04/10/25 15:55 Pulse Rhythm Regular 04/10/25 15:55 Pulse 72 04/10/25 15:01 Respiratory Rate 22 04/10/25 15:55 Respiratory Effort Normal 04/10/25 15:55 Respiratory Depth Normal 04/10/25 15:55 Respiratory Pattern Tachypnea 04/10/25 15:55 Blood Pressure 113/62 04/10/25 15:55 Blood Pressure Mean 71 04/10/25 15:01 Blood Pressure Position Supine 04/07/25 09:27 Pulse Oximetry 92 04/10/25 15:55 Respiratory End-tidal CO2 30 04/09/25 18:41 Oxygen Delivery Method Room Air 04/10/25 15:55 Oxygen Flow Rate 0 04/10/25 15:55 Pain Level 8 04/10/25 16:00 Comment RN notified 04/09/25 07:35 Comment prior shift/nurse 04/10/25 07:01 Allergies doxazosin Allergy (Severe, Verified 04/07/25 09:37) RASH nickel Allergy (Severe, Verified 04/07/25 09:37) SEVERE RASH lisinopril Allergy (Intermediate, Verified 04/07/25 09:37) HIVES Beta-Blockers (Beta-Adrenergic Bloc Adverse Reaction (Intermediate, Verified 04/07/25 09:37) WEAKNESS Precautions Isolation Standard precaution 04/07/25 10:19 Active Medications Generic Name Dose Route Start Last Admin Trade Name Freq PRN Reason Stop Dose Admin Amlodipine Besylate 5 mg 04/08/25 08:30 04/10/25 08:49 Amlodipine 5 Mg Tab PO 5 mg DAILY ZHENG Administration Calcium/Vitamin D 1 tab 04/08/25 08:30 04/10/25 08:35 Calcium 600mg/Vit D 200u Tab PO 1 tab DAILY ZHENG Administration Cholecalciferol 2,000 units 04/08/25 08:30 04/10/25 08:36 Cholecalciferol (Vitamin D3) 1,000 Unit Tab PO 2,000 units DAILY ZHENG Administration Escitalopram Oxalate 10 mg 04/08/25 08:30 04/10/25 08:36 Escitalopram 10 Mg Tab PO 10 mg QAM ZHENG Administration Hydrochlorothiazide 25 mg 04/08/25 08:30 04/10/25 08:36 Hydrochlorothiazide 25 Mg Tab PO 25 mg DAILY ZHENG Administration Hydromorphone HCl 1 mg 04/09/25 19:36 04/10/25 16:10 Hydromorphone 2 Mg/Ml Syr IVP 1 mg Q3H PRN PRN Administration Acetaminophen 1,000 mg in 100 mls @ 400 mls/hr 04/09/25 20:00 04/10/25 16:10 Ofirmev IVPB 100 mls/hr Q8H ZHENG Infusion Sodium Chloride 1,000 mls @ 100 mls/hr 04/09/25 23:15 04/10/25 10:37 Saline 1000ml Bag IV 100 mls/hr INFUSION ZHENG Administration Losartan Potassium 50 mg 04/07/25 20:00 04/08/25 19:54 Losartan 50 Mg Tab PO 50 mg On Hold: 04/09/25 08:30 BID ZHENG Administration Metoprolol Succinate 25 mg 04/08/25 08:30 04/10/25 08:35 Metoprolol Cr 25 Mg Tabcr PO 25 mg DAILY ZHENG Administration Prednisone 5 mg 04/08/25 08:30 04/10/25 08:36 Prednisone 5 Mg Tab PO 5 mg DAILY ZHENG Administration Prednisone 2 mg 04/08/25 08:30 04/10/25 08:35 Prednisone 1 Mg Tab PO 2 mg DAILY ZHENG Administration Sodium Chloride 0 ml 04/09/25 23:01 04/10/25 16:10 Normal Saline Flush 10 Ml Syr IVP 10 ml PRN PRN Administration IV IV Catheter Type [Right Peripheral IV Midline] IV Catheter Type [Left Saline Lock Antecubital] IV Catheter Type [Right Peripheral IV Antecubital] IV Catheter Gauge [Right 20 Midline] IV Catheter Gauge [Left 18 Antecubital] IV Catheter Gauge [Right 18 Antecubital] Diagnostics 04/10/25 04/10/25 04/09/25 Range/Units 06:45 05:50 21:35 WBC 16.92 H 20.49 H (4.4-10.8) 10^3/uL RBC 3.22 L 3.57 L (3.93-5.22) 10^6/uL Hgb 8.8 L 9.6 L (11.2-15.7) g/dL Hct 27.9 L 30.1 L (36.0-46.0) % MCV 87 84 (80-95) fL MCH 27.3 26.9 L (27.0-33.0) pg MCHC 31.5 L 31.9 L (32.0-36.0) % RDW 16.5 H 16.1 H (11.7-14.6) % Plt Count 285 340 (130-400) 10^3/uL MPV 10.7 10.1 (8.0-11.0) fL Sodium 139 139 (136-145) mmol/L Potassium 4.3 3.9 (3.5-5.1) mmol/L Chloride 106 105 (98-107) mmol/L Carbon Dioxide 24.1 21.9 (21.0-32.0) mmol/L Anion Gap 8.9 12.1 H (3-11) mmol/L BUN 17 18 (7-18) mg/dL Creatinine 1.3 H 1.4 H (0.55-1.02) mg/dL Est GFR (CKD-EPI 2020) 40.80 37.33 (mL/min/1.73m2) Glucose 130 H 166 H (74-106) mg/dL Calcium 7.8 L 8.1 L (8.5-10.1) mg/dL Carcinoembryonic Ag Pending Intake and Output - 24 Hour Total 04/07/25 09:15 thru 04/10/25 17:21 Intake Total 7755.833 Output Total 2400 Balance 5355.833 Weight 76.1 kg Intake: IV 5715.833 Oral 1490 Blood Product 550 Rbc Leuko Reduced Unit 250 [id number] Rbc Leuko Reduced Unit 300 [id number] Output: Urine 1900 Stool 400 Estimated Blood Loss 100 Other: Urine Color Yellow Urine Appearance Clear Urine Odor None Comment unmeasured and mix with stool in the toilet hat. Stool Occult Blood Positive Stool Size Small Stool Characteristics Liquid Brown Emesis Description None Urinary Catheter Urinary Catheter Date of 04/09/25 Insertion [Urethral (Callaway)] Time of insertion [Urethral ( 15:48 Callaway)] Falls Risk Assessment History of Falls No History 04/10/25 15:55 Contributing Factors Unstable,Medications 04/10/25 15:55 Ambulatory Aids Independent 04/10/25 15:55 Tubes/Lines With any additional score 04/10/25 15:55 Gait Evaluation No gait disturbance 04/10/25 15:55 Cognition No cognitive impairment 04/10/25 15:55 Fall Total Score 26 04/10/25 15:55 Level of Risk Moderate Risk 04/10/25 15:55 Problems (Last Updated 03/30/25 @ 08:32 by Arina Ceja) Hypomagnesemia (Acute) Tachycardia (Acute) GI bleeding (Chronic) On deep vein thrombosis (DVT) prophylaxis (Acute) CKD (chronic kidney disease) (Chronic) Lower gastrointestinal bleed (Acute) Adenocarcinoma, colon (Acute) Anemia (Chronic) Hyperlipidemia (Chronic) Giant cell arteritis (Chronic 10/27/15) Essential hypertension (Chronic 10/19/13) Chronic obstructive lung disease (Chronic 03/31/07) S/P TAVR (transcatheter aortic valve replacement) (Acute) v v v v v v v v v Sending and/or Receiving Nurses: Please use comment section below to note any information pertinent to the patient hand-off not included above. Information / Comments: Report received from: Sandra Qureshi RN
[2025-04-11] VITALS (7 sets, daily range): BP systolic 112–121; BP diastolic 50–60; PULSE 61–72; RESP 14–20; TEMP 36.2–36.7; O2SAT 92–98
[2025-04-11] MEDS: Normal Saline 1,000 ML 100 ML IV ×3 (00:06→18:56)
[2025-04-11] MEDS: HYDROmorphone 2 MG/ML SYR 1 MG IVP ×5 (02:54→19:06)
[2025-04-11] MEDS: ACETAMINOPHEN 1,000 MG/100 ML BAG 400 MG IVPB ×3 (03:25→18:55)
[2025-04-11] MEDS: hydrOXYzine HCL 25 MG TAB PO (05:00)
[2025-04-11 06:32] LABS: HCT 26.9 % (36.0-46.0); HGB 8.4 g/dL (11.2-15.7); MCH 27.3 pg (27.0-33.0); MCHC 31.2 % (32.0-36.0); MCV 87 fL (80-95); MPV 10.4 fL (8.0-11.0); Platelet Count 328 10^3/uL (130-400); RBC 3.08 10^6/uL (3.93-5.22); RDW 16.7 % (11.7-14.6); RDW-SD 53.1 fL; WBC 16.36 10^3/uL (4.4-10.8)
[2025-04-11 06:45] LABS: Anion Gap 10.9 mmol/L (3-11); BUN 17 mg/dL (7-18); CO2 24.1 mmol/L (21.0-32.0); Calcium 8.0 mg/dL (8.5-10.1); Chloride 101 mmol/L (98-107); Estimated GFR 40.80 (mL/min/1.73m2); Glucose 104 mg/dL (74-106); Potassium 3.5 mmol/L (3.5-5.1); Sodium 136 mmol/L (136-145)
[2025-04-11] MEDS: Cholecalciferol (Vitamin D3) 1,000 UNIT TAB 2000 UNITS PO (07:38)
[2025-04-11] MEDS: Metoprolol CR 25 MG TABCR PO (07:38)
[2025-04-11] MEDS: Calcium 600mg/Vit D 200U TAB 1 TAB PO (07:38)
[2025-04-11] MEDS: amLODIPine 5 MG TAB PO (07:38)
[2025-04-11] MEDS: hydroCHLOROthiazide 25 MG TAB PO (07:38)
[2025-04-11] MEDS: Escitalopram 10 MG TAB PO (07:39)
--- NOTE | 2025-04-11 09:22 | W.PM.PROGNOT ---
Date of Service Date of service: 04/11/25 Time of Service: 09:22 Assessment and Plan Assessment and plan (1) Adenocarcinoma, colon: Status: Acute Assessment and plan: Overall I think Zeny is doing great after right hemicolectomy. She still has a little bit of a leukocytosis, but no real compelling sources of any infection. Her hemoglobin remains the same today, so have a low suspicion for any active bleeding. However, she does still have some exertional dyspnea and fatigue, and in that regard, it may be worth transfusing her unit of packed red blood cells to see how she responds. I think it is reasonable to get the [place] catheter out today as she seems to be increasing her mobility, and perhaps that is driving the leukocytosis. Subjective Subjective Interval history since last seen: Zeny is awake, alert, and eating some breakfast. She tells me she is comfortable. She was up and walking around a bit yesterday, and did have some increase in her incisional pain, but that seems to be improving. She denies any nausea this morning. Exam GI Other: Her abdomen is soft, not very distended. She has some bowel sounds. The bandages are clean and dry. Objective Last Vital Signs Temp 97.2 F L 04/11/25 07:36 Pulse 72 04/11/25 07:36 Resp 14 04/11/25 07:36 BP 118/55 L 04/11/25 07:36 Pulse Ox 93 04/11/25 07:36 Laboratory Results - last 24 hr 04/07/25 04/11/25 04/11/25 09:48 05:35 05:51 WBC 16.36 H RBC 3.08 L Hgb 8.4 L Hct 26.9 L MCV 87 MCH 27.3 MCHC 31.2 L RDW 16.7 H Plt Count 328 MPV 10.4 Sodium Cancelled 136 Potassium Cancelled 3.5 Chloride Cancelled 101 Carbon Dioxide Cancelled 24.1 Anion Gap Cancelled 10.9 BUN Cancelled 17 Creatinine Cancelled 1.3 H Est GFR (CKD-EPI 2020) Cancelled 40.80 Glucose Cancelled 104 Calcium Cancelled 8.0 L Crossmatch See Detail PAWSS Have you Been Recently Intoxicated or Drunk Within the Last 30 days?: No Have you Ever Experienced Previous Episodes of Alcohol Withdrawal?: No Have you ever Experienced Withdrawal Seizures?: No Have you ever Experienced Delirium Tremens(DT)s?: No Have you ever undergone Alcohol Rehabilitation Treatment (i.e, inpt ot outpatient treatment programs)?: No Have you ever Experienced Blackouts?: No Have you ever Combined Alcohol with other Downers within the last 90 days?: No Have you ever Combined Alcohol with any other Substance of Abuse during the last 90 days?: No Positive Blood Alcohol level on Presentation? [PCS.BAL]: No Evidence of Increased Autonomic Activity (i.e. HR>120, tremor, sweating, agitation, nausea)?: No Result: 0 Time Spent with Patient Time Spent with Patient: 25-34 minutes Time was spent: preparing to see the patient(eg.review tests), referring, communicating with other health home care music therapist, indepentently interpreting results and counseling the patient
--- NOTE | 2025-04-11 11:20 | W.PM.PROGNOT ---
Date of Service Date of service: 04/11/25 Time of Service: 11:20 Assessment and Plan Assessment and plan (1) Lower gastrointestinal bleed: Start date: 04/09/25 Status: Acute Assessment and plan: - Likely secondary to adenocarcinoma of colon - Now postop day 2 - Hemoglobin down from 9.6-8.8, 8.6 this is likely secondary to surgical intervention and IV fluids -However, given complaints of ongoing fatigue, general surgery ordered 1 unit of packed red blood cells - Will follow-up a.m. hemoglobin and transfuse as needed (2) Tachycardia: Start date: 04/09/25 Status: Acute Assessment and plan: - Resolved (3) Adenocarcinoma, colon: Start date: 04/09/25 Status: Acute Assessment and plan: - POD 1 of resection as noted above -Chest CT showed multiple scattered bilateral tiny pulmonary nodules. Largest nodule is in the posterior right upper lobe which measures 9 by 4 millimeters. The findings are suspicious for metastatic disease. (4) Giant cell arteritis: Status: Chronic Assessment and plan: -On home steroid regimen (5) Essential hypertension: Status: Chronic Assessment and plan: - Resume as tolerated none the patient is postop (6) Hypomagnesemia: Status: Acute Assessment and plan: supplementation given - Mg in AM (7) Chronic obstructive lung disease: Status: Chronic Assessment and plan: -Continue home meds -IS and acapella s/p surgery (8) S/P TAVR (transcatheter aortic valve replacement): Status: Acute Assessment and plan: -On ASA only - bio-prosthetic valve -hold d/t acute GIB (9) Hypokalemia: Assessment and plan: -resolved (10) CKD (chronic kidney disease): Status: Chronic Assessment and plan: -Cr at baseline Subjective Subjective Interval history since last seen: Patient states that she is doing well today and has no complaints or concerns at this time. Exam Narrative Exam Narrative: Well-appearing older female laying in bed in no acute distress, ANO x 4, heart regular rhythm, lungs good auscultation bilaterally, abdomen soft, very mild midline tenderness at surgical incision site with bandage over top without surrounding erythema or drainage Objective Last Vital Signs Temp 97.2 F L 04/11/25 07:36 Pulse 72 04/11/25 07:36 Resp 14 04/11/25 07:36 BP 118/55 L 04/11/25 07:36 Pulse Ox 93 04/11/25 07:36 Laboratory Results - last 24 hr 04/07/25 04/11/25 04/11/25 09:48 05:35 05:51 WBC 16.36 H RBC 3.08 L Hgb 8.4 L Hct 26.9 L MCV 87 MCH 27.3 MCHC 31.2 L RDW 16.7 H Plt Count 328 MPV 10.4 Sodium Cancelled 136 Potassium Cancelled 3.5 Chloride Cancelled 101 Carbon Dioxide Cancelled 24.1 Anion Gap Cancelled 10.9 BUN Cancelled 17 Creatinine Cancelled 1.3 H Est GFR (CKD-EPI 2020) Cancelled 40.80 Glucose Cancelled 104 Calcium Cancelled 8.0 L Crossmatch See Detail 04/11/25 10:55 WBC RBC Hgb Hct MCV MCH MCHC RDW Plt Count MPV Sodium Potassium Chloride Carbon Dioxide Anion Gap BUN Creatinine Est GFR (CKD-EPI 2020) Glucose Calcium Crossmatch See Detail PAWSS Have you Been Recently Intoxicated or Drunk Within the Last 30 days?: No Have you Ever Experienced Previous Episodes of Alcohol Withdrawal?: No Have you ever Experienced Withdrawal Seizures?: No Have you ever Experienced Delirium Tremens(DT)s?: No Have you ever undergone Alcohol Rehabilitation Treatment (i.e, inpt ot outpatient treatment programs)?: No Have you ever Experienced Blackouts?: No Have you ever Combined Alcohol with other Downers within the last 90 days?: No Have you ever Combined Alcohol with any other Substance of Abuse during the last 90 days?: No Positive Blood Alcohol level on Presentation? [PCS.BAL]: No Evidence of Increased Autonomic Activity (i.e. HR>120, tremor, sweating, agitation, nausea)?: No Result: 0 Time Spent with Patient Time Spent with Patient: >50 minutes Time was spent: preparing to see the patient(eg.review tests), obtaining and/or reviewing separately otained hiistory, ordering medications,tests, procedures, referring, communicating with other health intensive care specialist, indepentently interpreting results, counseling the patient and care coordination
[2025-04-11] MEDS: Calcium Carbonate *TUMS* 500 MG CHEW 1000 MG PO ×2 (15:43→18:55)
[2025-04-11] MEDS: Pantoprazole 40 MG TABCR PO (15:44)
[2025-04-11] MEDS: Normal Saline Flush 10 ML SYR IVP (19:06)
[2025-04-12] MEDS: HYDROmorphone 2 MG/ML SYR 1 MG IVP ×5 (01:14→23:02)
[2025-04-12] MEDS: ACETAMINOPHEN 1,000 MG/100 ML BAG 400 MG IVPB ×3 (03:15→20:18)
[2025-04-12 04:33] VITALS: BP 127/76; PULSE 71; RESP 16; TEMP 36.6; O2SAT 96
[2025-04-12] MEDS: Normal Saline 1,000 ML 100 ML IV ×3 (06:00→18:38)
[2025-04-12 06:21] LABS: HCT 27.9 % (36.0-46.0); HGB 8.6 g/dL (11.2-15.7); MCH 27.0 pg (27.0-33.0); MCHC 30.8 % (32.0-36.0); MCV 88 fL (80-95); MPV 10.8 fL (8.0-11.0); Platelet Count 259 10^3/uL (130-400); RBC 3.19 10^6/uL (3.93-5.22); RDW 16.9 % (11.7-14.6); RDW-SD 54.6 fL; WBC 15.41 10^3/uL (4.4-10.8)
[2025-04-12 07:12] VITALS: BP 145/65; PULSE 86; RESP 18; TEMP 36.7; O2SAT 96
[2025-04-12] MEDS: Escitalopram 10 MG TAB PO (08:02)
[2025-04-12] MEDS: hydroCHLOROthiazide 25 MG TAB PO (08:02)
[2025-04-12] MEDS: Metoprolol CR 25 MG TABCR PO (08:03)
[2025-04-12] MEDS: Pantoprazole 40 MG TABCR PO (08:03)
[2025-04-12] MEDS: amLODIPine 5 MG TAB PO (08:03)
[2025-04-12] MEDS: Cholecalciferol (Vitamin D3) 1,000 UNIT TAB 2000 UNITS PO (08:03)
[2025-04-12] MEDS: Calcium 600mg/Vit D 200U TAB 1 TAB PO (08:04)
--- NOTE | 2025-04-12 09:06 | CMPROGNOTE_ITS ---
Date of service: 04/12/25 Time of Service: 09:06 Care Management Progress Note Progress Note Text Progress Note Text: Zeny was sitting up in bed when CM met with her this afternoon. She appeared pale but stated that she is feeling much better than she did this morning. She reported that she waited too long to ask for pain medicine. She stated she was in a lot of pain for quite a while and was nauseated and vomited as well. Zeny is post-op day #3 from a colon resection for adenocarcinoma of the colon. She has done well postoperatively and looks foreward to going home in the next couple of days. She will have a resumption of home health services for n uresing and PT. Discharge Potential Discharge Needs: Surgical F/U Appt Anticipated Barriers to Discharge: None Identified Patient/Family Education Needs: Review discharge instructions, discuss Ask Me Three Transportation: Private vehicle Plan: Anticipate Zeny will be discharged home with a resumption of home health services for nursing and PT with the possible addition of OT. She will follow up with her community providers and plan of care and transport with family. CM will follow and continue to support dischare planning efforts. Social Determinants of Health Screening Social Determinants of health last assessed in clinic: 04/10/25 Will the Patient Participate in the Screening?: Unable to obtain Do you worry about having a steady place to live?: yes What is your living situation today?: I have housing today, but am worried about losing it Problems where you live: no known problems In the past 12 months, have you had to go without electric, gas, oil or water in your home?: no Has lack of transportation kept you from medical appointments or from doing things needed for daily living?: no Has anyone in your life made you feel unsafe or unsupported?: no How hard is it for you to pay for the very basics like food, housing, medical care, and heating? Would you say it is:: Not hard at all Do you want help finding or keeping work or a job?: I do not need or want help If for any reason you need help with day-to-day activities such as bathing, preparing meals, shopping, managing finances, etc., do you get the help you need?: I don?t need any help How often do you feel lonely or isolated from those around you?: Never Do you speak a language other than [place] at home?: No Does the patient want assistance with any of the above?: No Health Related Social Needs Health related social needs: housing instability, housed, with risk of homelessness (Z59.811)
[2025-04-12 10:07] LABS: CEA 0.8 ng/mL (See Note)
[2025-04-12 10:12] VITALS: BP 152/62
[2025-04-12 11:05] VITALS: BP 145/67; PULSE 78; RESP 18; TEMP 36.6; O2SAT 95
--- NOTE | 2025-04-12 11:24 | W.NUTRFU ---
Date of service: 04/12/25 Time of Service: 10:00 Nutrition Note NOTE: Met with Zeny (her son currently visiting). She is s/p R hemicolectomy with ilieocolic anastomosis 04/09 due to colon cancer. Only had a little oj this morning and feeling like dairy on the full liquid diet not quite agreeing with her. I affirmed that lactose not well tolerated by many post abdominal surgery, combined with the diarrhea she mentions leading up to this hospitalization could alter microbial balance and effect lactase enzyme activity. denies significant weight loss - states UBW is about 155lbs - was 167lbs on 04/10. Labs: Calcium 8.0 yesterday, Mag 1.6 04/09, total protein and albumin low 04/07 (6.2/2.9) Pt and son affirm that their big questions involve how to handle diet progression once home. Began education with moving towards a bland, low fiber diet with emphasis on adequate calcium, vitamin D, and increasing fiber slowly. Willing to try high protein gelatein ONS (low lactose with collagen - 20g protein per serving). Will put education materials together for pt and offer outpatient appt at discharge. Time Spent in Nutritional Counseling and Treatment: 10 min
[2025-04-12] MEDS: Calcium Carbonate *TUMS* 500 MG CHEW 1000 MG PO ×3 (13:20→23:02)
--- NOTE | 2025-04-12 15:00 | W.PM.PROGNOT ---
Date of Service Date of service: 04/12/25 Time of Service: 15:00 Assessment and Plan Assessment and plan (1) Lower gastrointestinal bleed: Start date: 04/09/25 Status: Acute Assessment and plan: - Likely secondary to adenocarcinoma of colon - Now postop day 3 - Hemoglobin down from 9.6-8.8, 8.6 this is likely secondary to surgical intervention and IV fluids -given complaints of ongoing fatigue, general surgery ordered 1 unit of packed red blood cells - Discussed with blood bank, patient unable to receive transfusion as she has major antigen incompatibility, further testing has been sent - Patient's hemoglobin improved again this morning to 8.6, given that she is not actively be bleeding and hemoglobin is stable we will hold off on transfusion (2) Tachycardia: Start date: 04/09/25 Status: Acute Assessment and plan: - Resolved (3) Adenocarcinoma, colon: Start date: 04/09/25 Status: Acute Assessment and plan: - POD 3 of resection as noted above -Chest CT showed multiple scattered bilateral tiny pulmonary nodules. Largest nodule is in the posterior right upper lobe which measures 9 by 4 millimeters. The findings are suspicious for metastatic disease. (4) Giant cell arteritis: Status: Chronic Assessment and plan: -On home steroid regimen (5) Essential hypertension: Status: Chronic Assessment and plan: - Resume as tolerated none the patient is postop (6) Hypomagnesemia: Status: Acute Assessment and plan: supplementation given - Mg in AM (7) Chronic obstructive lung disease: Status: Chronic Assessment and plan: -Continue home meds -IS and acapella s/p surgery (8) S/P TAVR (transcatheter aortic valve replacement): Status: Acute Assessment and plan: -On ASA only - bio-prosthetic valve -hold d/t acute GIB (9) Hypokalemia: Assessment and plan: -resolved (10) CKD (chronic kidney disease): Status: Chronic Assessment and plan: -Cr at baseline Subjective Subjective Interval history since last seen: Patient was seen after ambulating to the commode where she experienced some abdominal pain and resulting lightheadedness and dizziness. After being given IV pain medication her symptoms have resolved. Otherwise she states that she is doing well and has no complaints or concerns at this time. Exam Narrative Exam Narrative: Well-appearing older female laying in bed in no acute distress, ANO x 4, heart regular rhythm, lungs good auscultation bilaterally, abdomen soft, very mild midline tenderness at surgical incision site with bandage over top without surrounding erythema or drainage Objective Last Vital Signs Temp 97.9 F 04/12/25 11:05 Pulse 78 04/12/25 11:05 Resp 18 04/12/25 11:05 BP 145/67 H 04/12/25 11:05 Pulse Ox 95 04/12/25 11:05 Laboratory Results - last 24 hr 04/10/25 04/12/25 06:45 05:55 WBC 15.41 H RBC 3.19 L Hgb 8.6 L Hct 27.9 L MCV 88 MCH 27.0 MCHC 30.8 L RDW 16.9 H Plt Count 259 MPV 10.8 Carcinoembryonic Ag 0.8 PAWSS Have you Been Recently Intoxicated or Drunk Within the Last 30 days?: No Have you Ever Experienced Previous Episodes of Alcohol Withdrawal?: No Have you ever Experienced Withdrawal Seizures?: No Have you ever Experienced Delirium Tremens(DT)s?: No Have you ever undergone Alcohol Rehabilitation Treatment (i.e, inpt ot outpatient treatment programs)?: No Have you ever Experienced Blackouts?: No Have you ever Combined Alcohol with other Downers within the last 90 days?: No Have you ever Combined Alcohol with any other Substance of Abuse during the last 90 days?: No Positive Blood Alcohol level on Presentation? [PCS.BAL]: No Evidence of Increased Autonomic Activity (i.e. HR>120, tremor, sweating, agitation, nausea)?: No Result: 0 Time Spent with Patient Time Spent with Patient: >50 minutes Time was spent: preparing to see the patient(eg.review tests), obtaining and/or reviewing separately otained hiistory, ordering medications,tests, procedures, referring, communicating with other health animal care taker, indepentently interpreting results, counseling the patient and care coordination
[2025-04-12 17:44] VITALS: BP 146/65; PULSE 76; RESP 18; TEMP 37.2; O2SAT 96
--- NOTE | 2025-04-12 17:56 | W.PM.PROGNOT ---
Date of Service Date of service: 04/12/25 Time of Service: 17:58 Assessment and Plan Assessment and plan (1) Adenocarcinoma, colon: Status: Acute Assessment and plan: Zeny had a low-grade temperature today, but otherwise her vital signs are all reassuring. Her labs also look very good, and I find her bowel movements to be reassuring with regards to her surgery. Certainly, she not had any active signs of bleeding, and her hemoglobin seems to have plateaued at this point. She will stick with some liquids tonight, CR diet feels tomorrow. If she has any fevers, we can repeat her white blood cell count, but at this point, I have low index of suspicion for any type of abdominal infection after surgery. Subjective Subjective Interval history since last seen: Zeny does not have much appetite this evening. It sounds like her pain increased a little bit earlier today associated with an episode of coughing, but she tells me that better at this point. She has had multiple bowel movements through the day. Exam GI Other: Her abdomen is soft and nondistended. She has appropriate incisional tenderness. The anthony dressing looks fine. Objective Last Vital Signs Temp 99.0 F 04/12/25 17:44 Pulse 76 04/12/25 17:44 Resp 18 04/12/25 17:44 BP 146/65 H 04/12/25 17:44 Pulse Ox 96 04/12/25 17:44 Laboratory Results - last 24 hr 04/10/25 04/12/25 06:45 05:55 WBC 15.41 H RBC 3.19 L Hgb 8.6 L Hct 27.9 L MCV 88 MCH 27.0 MCHC 30.8 L RDW 16.9 H Plt Count 259 MPV 10.8 Carcinoembryonic Ag 0.8 PAWSS Have you Been Recently Intoxicated or Drunk Within the Last 30 days?: No Have you Ever Experienced Previous Episodes of Alcohol Withdrawal?: No Have you ever Experienced Withdrawal Seizures?: No Have you ever Experienced Delirium Tremens(DT)s?: No Have you ever undergone Alcohol Rehabilitation Treatment (i.e, inpt ot outpatient treatment programs)?: No Have you ever Experienced Blackouts?: No Have you ever Combined Alcohol with other Downers within the last 90 days?: No Have you ever Combined Alcohol with any other Substance of Abuse during the last 90 days?: No Positive Blood Alcohol level on Presentation? [PCS.BAL]: No Evidence of Increased Autonomic Activity (i.e. HR>120, tremor, sweating, agitation, nausea)?: No Result: 0 Time Spent with Patient Time Spent with Patient: 25-34 minutes Time was spent: preparing to see the patient(eg.review tests), referring, communicating with other health director medicare sales, indepentently interpreting results and counseling the patient
[2025-04-12 19:48] VITALS: BP 122/51; PULSE 74; RESP 16; TEMP 36.5; O2SAT 97
[2025-04-13] MEDS: Calcium Carbonate *TUMS* 500 MG CHEW 1000 MG PO ×2 (02:02→16:15)
[2025-04-13] MEDS: HYDROmorphone 2 MG/ML SYR 1 MG IVP ×5 (02:02→23:25)
[2025-04-13 04:05] VITALS: BP 121/60; PULSE 74; RESP 16; TEMP 36.5; O2SAT 96
[2025-04-13] MEDS: ACETAMINOPHEN 1,000 MG/100 ML BAG 400 MG IVPB ×3 (04:05→19:19)
[2025-04-13 07:09] VITALS: BP 160/66; PULSE 80; RESP 16; TEMP 36.7; O2SAT 98
[2025-04-13] MEDS: Calcium 600mg/Vit D 200U TAB 1 TAB PO (07:41)
[2025-04-13] MEDS: Pantoprazole 40 MG TABCR PO (07:41)
[2025-04-13] MEDS: Cholecalciferol (Vitamin D3) 1,000 UNIT TAB 2000 UNITS PO (07:41)
[2025-04-13] MEDS: Metoprolol CR 25 MG TABCR PO (07:42)
[2025-04-13] MEDS: amLODIPine 5 MG TAB PO (07:42)
[2025-04-13] MEDS: Escitalopram 10 MG TAB PO (07:42)
[2025-04-13] MEDS: hydroCHLOROthiazide 25 MG TAB PO (07:42)
[2025-04-13] MEDS: Normal Saline Flush 10 ML SYR IVP (07:45)
[2025-04-13] MEDS: Normal Saline 1,000 ML 100 ML IV ×2 (07:57→14:06)
--- NOTE | 2025-04-13 10:24 | PGE_ITS ---
Date of Service Date of service: 04/13/25 Time of Service: 10:24 Assessment and Plan Assessment and plan (1) Lower gastrointestinal bleed: Start date: 04/09/25 Status: Acute Assessment and plan: - Likely secondary to adenocarcinoma of colon - Now postop day 4 -Appreciate recommendations from general surgery regarding diet advancement and potential discharge timing - Hemoglobin down from 9.6-8.8, 8.6 this is likely secondary to surgical intervention and IV fluids -given complaints of ongoing fatigue, general surgery ordered 1 unit of packed red blood cells - Discussed with blood bank, patient unable to receive transfusion as she has major antigen incompatibility, further testing has been sent - Patient's hemoglobin improved again AM 04/12 to 8.6, given that she is not actively be bleeding and hemoglobin is stable we will hold off on transfusion (2) Tachycardia: Start date: 04/09/25 Status: Acute Assessment and plan: - Resolved (3) Adenocarcinoma, colon: Start date: 04/09/25 Status: Acute Assessment and plan: - POD 3 of resection as noted above -Chest CT showed multiple scattered bilateral tiny pulmonary nodules. Largest nodule is in the posterior right upper lobe which measures 9 by 4 millimeters. The findings are suspicious for metastatic disease. (4) Giant cell arteritis: Status: Chronic Assessment and plan: -On home steroid regimen (5) Essential hypertension: Status: Chronic Assessment and plan: - Resume as tolerated none the patient is postop (6) Hypomagnesemia: Status: Acute Assessment and plan: supplementation given - Mg in AM (7) Chronic obstructive lung disease: Status: Chronic Assessment and plan: -Continue home meds -IS and acapella s/p surgery (8) S/P TAVR (transcatheter aortic valve replacement): Status: Acute Assessment and plan: -On ASA only - bio-prosthetic valve -hold d/t acute GIB (9) Hypokalemia: Assessment and plan: -resolved (10) CKD (chronic kidney disease): Status: Chronic Assessment and plan: -Cr at baseline Subjective Subjective Interval history since last seen: Patient states that she is doing well today and was able to tolerate her full liquid diet this morning. Otherwise she has no other complaints or concerns at this time. Exam GI Other: Her abdomen is soft and nondistended. She has appropriate incisional tenderness. The anthony dressing looks fine. Objective Last Vital Signs Temp 98.1 F 0701/25 07:09 Pulse 80 04/13/25 07:09 Resp 16 04/13/25 07:09 BP 160/66 H 04/13/25 07:09 Pulse Ox 98 04/13/25 07:09 Laboratory Results - last 24 hr 04/10/25 06:45 Carcinoembryonic Ag 0.8 PAWSS Have you Been Recently Intoxicated or Drunk Within the Last 30 days?: No Have you Ever Experienced Previous Episodes of Alcohol Withdrawal?: No Have you ever Experienced Withdrawal Seizures?: No Have you ever Experienced Delirium Tremens(DT)s?: No Have you ever undergone Alcohol Rehabilitation Treatment (i.e, inpt ot outpatient treatment programs)?: No Have you ever Experienced Blackouts?: No Have you ever Combined Alcohol with other Downers within the last 90 days?: No Have you ever Combined Alcohol with any other Substance of Abuse during the last 90 days?: No Positive Blood Alcohol level on Presentation? [PCS.BAL]: No Evidence of Increased Autonomic Activity (i.e. HR>120, tremor, sweating, agitation, nausea)?: No Result: 0 Time Spent with Patient Time Spent with Patient: >50 minutes Time was spent: preparing to see the patient(eg.review tests), obtaining and/or reviewing separately otained hiistory, ordering medications,tests, procedures, referring, communicating with other health home health care case manager, indepentently interpreting results, counseling the patient and care coordination
[2025-04-13 11:07] VITALS: BP 138/57; PULSE 75; RESP 16; TEMP 36.4; O2SAT 94
--- NOTE | 2025-04-13 11:30 | PDOC.CMPRO ---
Date of service: 04/13/25 Time of Service: 11:30 Care Management Progress Note Progress Note Text Progress Note Text: Zeny was sitting up in her chair, when CM arrived. Her diet has been advanced to regular/normal. She states, she is feeling better today. Zeny and her daughter expressed interest in obtaining a hospital bed, she is working with PT on bed mobility. Debby is followed by palliative. Zeny is She will have a resumption of home health services for RN and PT with the addition of OT, to help regain/maintain her ability to preform ADL's. CM will continue to follow. Discharge Potential Discharge Needs: PCP F/U Appt and Surgical F/U Appt Anticipated Barriers to Discharge: Medical Status Patient/Family Education Needs: Review discharge instructions, discuss Ask Me Three Transportation: Private vehicle Plan: Anticipate, Zeny will be discharged home with a resumption of home health services for nursing and PT with the addition of OT, patient is agreeable. She will follow up with her community providers and plan of care. Zeny will transport with family. CM will follow and continue to support dischare planning efforts. Social Determinants of Health Screening Social Determinants of health last assessed in clinic: 04/13/25 Will the Patient Participate in the Screening?: Unable to obtain Do you worry about having a steady place to live?: yes What is your living situation today?: I have housing today, but am worried about losing it Problems where you live: no known problems In the past 12 months, have you had to go without electric, gas, oil or water in your home?: no 1. Within the past 12 months, we worried whether our food would run out before we got money to buy more.: Never true 2. Within the past 12 months, the food we bought just didn't last and we didn't have money to get more.: Never true Has lack of transportation kept you from medical appointments or from doing things needed for daily living?: no Has anyone in your life made you feel unsafe or unsupported?: no How hard is it for you to pay for the very basics like food, housing, medical care, and heating? Would you say it is:: Not hard at all Do you want help finding or keeping work or a job?: I do not need or want help If for any reason you need help with day-to-day activities such as bathing, preparing meals, shopping, managing finances, etc., do you get the help you need?: I don?t need any help How often do you feel lonely or isolated from those around you?: Never Do you speak a language other than [place] at home?: No Does the patient want assistance with any of the above?: No Health Related Social Needs Health related social needs: housing instability, housed, with risk of homelessness (Z59.811) Anticipated HH Services Anticipated HH Services at Discharge [facility] Resumption, OT (Tad), PT and RN.
--- NOTE | 2025-04-13 12:04 | PT.INIE ---
PT Notes Visit Reasons: Lower GIB Physical Therapy Inpatient Initial Evaluation Date:04/13/2025 Referring Doctor: Shady Knox PT Orders: PT CONSULT: PT evaluation and treat Precautions: Standard, impaired/loss of vision left eye, NPO until after colonoscopy Patient Profile/Admitting Diagnosis: Pt is 84 yo female presented to the ED with abdominal pain. 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 Patient transfused 1 unit packed red blood cells. 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 coli UTI Sepsis due to Escherichia coli Elevated troponin Hypokalemia Acute kidney injury superimposed on chronic kidney disease Shortness of breath Discharge planning issues DVT prophylaxis Acute UTI Sepsis Lumbar stenosis with neurogenic claudication MRI 06/06/21 - L3-4 herniation with severe stenosis Leg wound, left Back pain Aortic stenosis Ganglion of tendon sheath (01/11/05) History of unilateral nephrectomy Impacted cerumen Primary malignant neoplasm of lung (09/12/83) Swelling of left lower extremity (02/17/15) H/O unilateral nephrectomy left; congenital deformity Impacted cerumen Asthma 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; 1984 Lobectomy; 03/20 Neg CXR & Barium swallow Ganglion of tendon sheath 01/11/05 Ganglion cyst of R foot Left leg swelling 02/17/eck mass see US 11/01 Anxiety (08/30/15) Cataract (11/19/16) Chronic cough Insomnia (10/08/17) Mass of right side of neck (02/28/16) Right hip pain (09/06/15) Skin lesion of face (08/30/15) 4mm by 2mm left upper lip Surgical History 10/14/83 left upper lobectomy; 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 She states, she has 3 children who are supportive, but they are not local; Her children visit often and bring her groceries to fill the freezer when they do visit. Zeny reports, she has a supportive relationship with her neighbors, who help her meet her needs. Zeny states, she is no longer driving, but through the [employer] she is able to utilize [facility] transportation, for her medical appointments; Zeny's neighbor's will often bring her to the store or pick things up for her, when she ask's. Equipment Owned/DME: 4WW x3 , grab bars in the bathroom, tub seat, electric recliner Subjective: Pt reports she has to sit on her 4WW at times to rest while cooking d/t pain in her back. She reports no longer drives. She has depth perception problems d/t loss of vision in left eye Objective: [] General Observation:awake female upright in bed visiting with her daughter and friend. Mental Status: A+Ox4, cooperative, able to follow instructions, agreeable to participate in assessment Pain: Abdomen 12/21 ROM: [] BUE: WNL BLE: WNL Strength: [] BUE: 4/5 Right Lower Extremity: grossly 4-/5 impaired hamstring length Left Lower Extremity: grossly hip 4-/5 knee 4/5 ankle 4/5 impaired hamstring length Sensation: intact Bed Mobility/Transfers: [] Supine to sit:min A d/t abdominal pain Sit to stand SBA cues for hand placement Stand to sit SBA cues for hand placement Bed to chair SBA with 4WW cues to stay with 4WW as she approaches surfaces and for brake management Gait: amb 25 ft with 4WW SBA reciprocal pattern , one stand rest. stairs: TBA Balance: [] Static Sitting: Normal Dynamic Sitting: Normal Static Standing: Normal Dynamic Standing: Good Special Tests: Mobility Limitations Standardized Measure [] [facility] AM-PAC 6 clicks Basic Mobility Inpatient Short Form: [] Raw Score: 17 CMS Score: 50.57 % Informed Consent/Education: Patient instructed in purpose of PT consult. Treatment 81500: functional transfers with 4WW SBA cues for brake management, transfers on off 4WW cues to place 4WW against wall then lock brakes prior to sitting Assessment: Patient is an 84 yo female who presents with clinical signs and symptoms consistent with current/admitting diagnoses that have resulted to mobility limitations, gait instability, generalized weakness, and impairment of motor control as demonstrated by the following impairment level findings: 1. Decreased strength to BLE major muscle groups 2. Impaired standing balance 3. chronic pain low back 4. Impaired functional activity tolerance 5. Pain in abdomen Impairments are contributing to the following functional limitations: 1. Inability to safely ambulate without assistive device 2. Increase completion time for mobility ADL performance 3. Increased fall risk 4. difficulty performing stairs without AD 5. Decline in bed mobility skills Patient is assessed as a moderate complexity based on the following: History: 84-year-old female with impairment level findings, functional limitations, and past medical history as indicated above Examination: Demonstrable impairment in strength, balance, and mobility level with underlying impairments and functional limitations as documented above Presentation: evolving Decision Making: moderate Goals: 1. Independent HEP 2. Independent ambulation with 4WW 300 feet 3. Supervision stairs with rail to safely enter and exit home 4. Independent bed mobility 5. Independent transfers with four-wheel walker Plan of Care/Treatment Plan: 1-2x/day, 7 days/week x 1 week. Plan of care has been reviewed with the PRODUCTION OPERATOR providing the service under Physical Therapy direction. Initiate Physical Therapy intervention for strengthening, bed mobility, transfers, gait, stairs, balance training, use of assistive device. DISCHARGE RECOMMENDATIONS: Patient will benefit from home health PT services in order to progress mobility level using least restrictive assistive ambulatory device, assess home safety, identify additional equipment needs, and establish a functional maintenance program that will increase ability of patient to remain at home. TREATMENT CODE/TIME: 78411, 51217 ,[id number] Thank you for the opportunity to participate in the care of this patient. Janet Sosa PT [facility]
--- NOTE | 2025-04-13 13:50 | W.PM.PROGNOT ---
Date of Service Date of service: 04/13/25 Time of Service: 13:50 Assessment and Plan Assessment and plan (1) Adenocarcinoma, colon: Status: Acute Assessment and plan: Zeny is doing well overall. She is slowly increasing her level of physical activity. She is having BMs without bleeding. Of note BMs have been loose in consistency. Discussed that we will be able to increase her fiber intake which can help support more bulky stools. She describes that she is tolerating a regular diet without any concerns. Encouraged her to continue with activities OOB, ambulation and getting up for all meals to increase her activity tolerance and strength with anticipation for her d/c home. Subjective Subjective Interval history since last seen: Arrive with patient resting comfortably. She reports that she was ambulating and sitting in the chair this morning. She is planning to do so again this afternoon. She describes she is having loose BMs. Pain is fairly well controlled at this time. Exam Const General: cooperative, healthy appearing and comfortable Orientation: alert and oriented x3 Resp Effort & Inspection: normal respiratory effort, no audible wheezes and no cough GI Inspection: normal to inspection and non-distended Palpation: soft, no guarding and tender Objective Last Vital Signs Temp 36.4 C L 04/13/25 11:07 Pulse 75 04/13/25 11:07 Resp 16 04/13/25 11:07 BP 138/57 L 04/13/25 11:07 Pulse Ox 94 04/13/25 11:07 PAWSS Have you Been Recently Intoxicated or Drunk Within the Last 30 days?: No Have you Ever Experienced Previous Episodes of Alcohol Withdrawal?: No Have you ever Experienced Withdrawal Seizures?: No Have you ever Experienced Delirium Tremens(DT)s?: No Have you ever undergone Alcohol Rehabilitation Treatment (i.e, inpt ot outpatient treatment programs)?: No Have you ever Experienced Blackouts?: No Have you ever Combined Alcohol with other Downers within the last 90 days?: No Have you ever Combined Alcohol with any other Substance of Abuse during the last 90 days?: No Positive Blood Alcohol level on Presentation? [PCS.BAL]: No Evidence of Increased Autonomic Activity (i.e. HR>120, tremor, sweating, agitation, nausea)?: No Result: 0 Time Spent with Patient Time Spent with Patient: <25 minutes Time was spent: preparing to see the patient(eg.review tests), obtaining and/or reviewing separately otained hiistory and counseling the patient
--- NOTE | 2025-04-13 13:53 | CHAPLAIN ---
Zeny was resting in bed when I visited. She said she sometimes naps here between breakfast and lunch. She told me that her children have been checking in on her and her son from [place] is working to get Family Leave Time so he can stay with her for a while when she is discharged. Her daughter had been here, and another brother will be arriving today. Zeny is pleasant and easily engages in conversation.
--- NOTE | 2025-04-13 15:43 | PTTR_ITS ---
PT Notes Visit Reasons: Lower GIB Inpatient Physical Therapy Treatment Note [facility] Date: 04/13/2025 PRECAUTIONS: IV access left upper extremity SUBJECTIVE: Patient reports pain in her abdomen when she has to cough OBJECTIVE: patient seated in bedside chair visiting with friends ? PAIN: Abdomen 3/10 VITALS: ?Monitored by nursing Therapeutic Activities (03731l[]): Direct one-on-one instruction in dynamic activities to improve functional performance. ? BED MOBILITY/TRANSFERS? Rolling L/R: Supervision with bilateral knees flexed Supine-sit: Via side-lying min assist ? Sit-supine: Min assist for lower extremities due to abdominal pain ? Sit-stand: Standby assist with cues to push up from surface x 3 trials? Stand-sit: Standby assist with cues to reach back for surface ? ?x 1/3 trials ? Bed-Chair: With 4 wheeled walker standby assist ? Chair-bed: With four-wheel walker standby assist Provided skilled cues and instruction on performance and technique throughout. Ambulation: Facilitated safe and correct performance of level surface ambulation covering a distance of 20 feet x 2 using use 4 wheeled walker with contact-guard assist . Did not report of any increased pain. Denied headache, chest pain, and lightheadedness throughout activity. Minimal verbal cueing provided for AD management, directional changes, and posture. ASSESSMENT: Patient demonstrates improved functional mobility with use of four- wheel walker versus FWW for ease of turning and approaching surfaces safely. Patient requires cues to push up from chair/bed/commode to stand. Patient required initial cues to reach back for surface then able to carryover for remainder of transfers through session. Bed mobility via side-lying to edge of bed with reduced pain in abdomen however continues to require min assist for trunk. Patient prefers to achieve supine position by scooting back onto bed raising 1 leg at a time and then slowly lowering trunk to mattress. She requ ired min assist for lower extremities with this technique due to abdominal pain PLAN: Continue per POC until medically appropriate for discharge TREATMENT CODE/TIME: 77152/1320?1343 DISCHARGE RECOMMENDATION: Home with HH PT when medically appropriate
[2025-04-13 15:52] VITALS: BP 144/72; PULSE 76; RESP 17; TEMP 36.6; O2SAT 95
[2025-04-13 19:20] VITALS: BP 149/68; PULSE 79; RESP 18; TEMP 36.4; O2SAT 95
[2025-04-13 23:41] VITALS: BP 159/67; PULSE 78; RESP 18; TEMP 36.8; O2SAT 94
[2025-04-14] VITALS (8 sets, daily range): BP systolic 133–159; BP diastolic 66–80; PULSE 75–92; RESP 17–20; TEMP 35.9–37.6; O2SAT 93–97
--- NOTE | 2025-04-14 | DI.RAD_ITS ---
Exam(s) XR ABDOMEN FLAT PLATE EXAM: XR ABDOMEN FLAT PLATE CLINICAL HISTORY: post op distention, pain, bilious emesis. TECHNIQUE: 2D digital imaging was performed. COMPARISON: CT CT ABDOMEN PELVIS CTA from 03/23/2025 FINDINGS: AP supine view the abdomen: Heart size is normal. There is an aortic valve TAVR. No obvious pleural effusions. In the abdomen there is evidence recent laparotomy. The right-side of the abdomen is gasless. However, there are air-filled dilated small bowel loops in left side of the abdomen measuring 5 cm diameter on this portable supine film. The stomach does not appear overly distended. There is no gas in the rectum. Regional bones reveal degenerative disc disease in the lumbar spine and degenerative scoliosis. IMPRESSION: Paucity of bowel loops in the right side of the abdomen. Dilated air-filled small bowel loops in left side of the abdomen. Cannot truly assess for bowel obstruction or free air without upright or decubitus images. DATA REPOSITORY: RADIATION DOSE DELIVERED:
[2025-04-14] MEDS: Normal Saline 1,000 ML 100 ML IV (00:35)
[2025-04-14] MEDS: ACETAMINOPHEN 1,000 MG/100 ML BAG 400 MG IVPB ×3 (04:10→22:41)
[2025-04-14] MEDS: Calcium 600mg/Vit D 200U TAB 1 TAB PO (08:52)
[2025-04-14] MEDS: Cholecalciferol (Vitamin D3) 1,000 UNIT TAB 2000 UNITS PO (08:52)
[2025-04-14] MEDS: amLODIPine 5 MG TAB PO (08:52)
[2025-04-14] MEDS: Escitalopram 10 MG TAB PO (08:52)
[2025-04-14] MEDS: hydroCHLOROthiazide 25 MG TAB PO (08:53)
[2025-04-14] MEDS: Metoprolol CR 25 MG TABCR PO (08:53)
[2025-04-14] MEDS: Pantoprazole 40 MG TABCR PO (08:53)
[2025-04-14] MEDS: Normal Saline Flush 10 ML SYR IVP ×2 (11:13→19:01)
--- NOTE | 2025-04-14 15:45 | PTTR_ITS ---
PT Notes Visit Reasons: Lower GIB Inpatient Physical Therapy Treatment Note [facility] Date: 04/14/2025 PRECAUTIONS: IV access , abdominal drain SUBJECTIVE: Patient reports pain in her abdomen but wants to walk OBJECTIVE: patient seated in bedside chair visiting with friends ? PAIN: Abdomen 03/23 nurse notified pain meds given VITALS: ?Monitored by nursing Therapeutic Activities ([id number][]): Direct one-on-one instruction in dynamic activities to improve functional performance. ? BED MOBILITY/TRANSFERS? Rolling L/R: Supervision with bilateral knees flexed Supine-sit: Via side-lying min assist ? Sit-supine: Min assist for lower extremities due to abdominal pain ? Sit-stand: Standby assist with cues to push up from surface x 1/ 3 trials? Stand-sit: Standby assist with cues to reach back for surface ? ?x 1/3 trials ? Bed-Chair: With 4 wheeled walker standby assist ? Chair-bed: With four-wheel walker standby assist Provided skilled cues and instruction on performance and technique throughout. Ambulation: Facilitated safe and correct performance of level surface ambulation covering a distance of 54 feet x 2 using use 4 wheeled walker with stand by assist . Pt took one seated rest on the 4WW. Did not report of any increased pain. Denied headache, chest pain, and lightheadedness throughout activity. Minimal verbal cueing provided for AD management, directional changes, and posture. ASSESSMENT: Patient demonstrates improved functional mobility with use of four- wheel walker demonstrating increased distance of ambulation. Pt limited by abdom inal pain with bed mobility. PLAN: Continue per POC until medically appropriate for discharge TREATMENT CODE/TIME: 11830/[id number] DISCHARGE RECOMMENDATION: Home with PT when medically appropriate
--- NOTE | 2025-04-14 17:18 | PDOC.CMPRO ---
Date of service: 04/14/25 Time of Service: 17:18 Care Management Progress Note Progress Note Text Progress Note Text: Zeny was sitting up in a chair chatting with her visitor when CM met with her. She readily engaged with CM and reported that she is doing ok. She stated that she still has a fair amount of pain and does not feel she will be able to care for herself at home at this time. She lives alone and does not have family close by. CM assured her that home health services could be ordered but that would not provide someone even every day, much less for several hours a day. She was quite reluctant to consider SNF however she understands that she cannot remain at [facility] indefinitely. After discussion, Zeny agreed to have referrals sent to [facility] and [facility]. [facility] has no beds so that referral was deferred. Discharge Potential Discharge Needs: Other (possible SNF for short term rehab) Anticipated Barriers to Discharge: Bed availability Patient/Family Education Needs: Review discharge instructions, discuss [facility] [employer] Transportation: [facility] Plan: Anticipate Zeny may be transferred to a SNF for short term rehab prior to returning home. Referrals were sent to [facility] and [facility]. Zeny was willing to consider [facility] as well but they have no beds. She will follow up with facility providers and plan of care and transport via [facility] coordinated by CM. CM will follow and continue to assess for discharge needs. Social Determinants of Health Screening Social Determinants of health last assessed in clinic: 04/13/25 Will the Patient Participate in the Screening?: Unable to obtain Do you worry about having a steady place to live?: yes What is your living situation today?: I have housing today, but am worried about losing it Problems where you live: no known problems In the past 12 months, have you had to go without electric, gas, oil or water in your home?: no Has lack of transportation kept you from medical appointments or from doing things needed for daily living?: no Has anyone in your life made you feel unsafe or unsupported?: no How hard is it for you to pay for the very basics like food, housing, medical care, and heating? Would you say it is:: Not hard at all Do you want help finding or keeping work or a job?: I do not need or want help If for any reason you need help with day-to-day activities such as bathing, preparing meals, shopping, managing finances, etc., do you get the help you need?: I don?t need any help How often do you feel lonely or isolated from those around you?: Never Do you speak a language other than Arabic at home?: No Does the patient want assistance with any of the above?: No Health Related Social Needs Health related social needs: housing instability, housed, with risk of homelessness ([phone])
--- NOTE | 2025-04-14 17:37 | PGE_ITS ---
Date of Service Date of service: 04/14/25 Time of Service: 17:37 Assessment and Plan Assessment and plan (1) Status post laparotomy: Status: Acute Assessment and plan: POD 5 s/p open right hemicolectomy for bleeding colon mass/cancer. Distention and bilious emesis today after having had stools. Make NPO and evaluate for post op ileus. (2) Vomiting (bilious) following gastrointestinal surgery: Status: Acute Assessment and plan: Make NPO and review stat abd XR for signs of ileus or obstruction. Discussed NG tube placement in case of ileus or obstruction w patient and daughter and they are agreeable. (3) Adenocarcinoma, colon: Status: Acute Assessment and plan: s/p laparotomy. Hgb is equilibrating, no signs of ongoing bleeding since the resection. Continue to monitor. Will start dvt chemoppx as hgb stable, to start in AM. Exam Narrative Exam Narrative: [place] well until 130pm. Has had marginal appetite but was tolerating liquids and bites of solid food until this afternoon. daughter states that patient has only had a few bites of food before the emesis today. emesis was yellow and mossy green, high volume on the bed and 500mL in an emesis bag. pt feels dizzy and is distended. no flatus. belching a lot today. Objective Last Vital Signs Temp 96.6 F L 04/14/25 15:16 Pulse 80 04/14/25 15:16 Resp 17 04/14/25 15:16 BP 148/73 H 04/14/25 15:16 Pulse Ox 93 04/14/25 15:16 Laboratory Results - last 24 hr 04/11/25 04/11/25 04/11/25 10:55 15:05 15:05 Blood Type (Referred) POS Blood Group (off-site) O Antibody Identification Anti-E Antibody ID Referred SEE COMMENT SEE COMMENT Direct Antiglob Test NEG Crossmatch See Detail Objective Narrative Objective Narrative: awake, appears uncomfortable eomi, MMM normal resp effort with increased rate abdomen is distended and tympanitic in the upper left abdomen. midline with HAYDEE in place. PAWSS Have you Been Recently Intoxicated or Drunk Within the Last 30 days?: No Have you Ever Experienced Previous Episodes of Alcohol Withdrawal?: No Have you ever Experienced Withdrawal Seizures?: No Have you ever Experienced Delirium Tremens(DT)s?: No Have you ever undergone Alcohol Rehabilitation Treatment (i.e, inpt ot outpatient treatment programs)?: No Have you ever Experienced Blackouts?: No Have you ever Combined Alcohol with other Downers within the last 90 days?: No Have you ever Combined Alcohol with any other Substance of Abuse during the last 90 days?: No Positive Blood Alcohol level on Presentation? [PCS.BAL]: No Evidence of Increased Autonomic Activity (i.e. HR>120, tremor, sweating, agitation, nausea)?: No Result: 0 Time Spent with Patient Time Spent with Patient: 35-49 minutes Time was spent: preparing to see the patient(eg.review tests), obtaining and/or reviewing separately otained hiistory, ordering medications,tests, procedures, indepentently interpreting results and counseling the patient
--- NOTE | 2025-04-14 18:48 | W.PM.PROGNOT ---
Date of Service Date of service: 04/14/25 Time of Service: 18:49 Assessment and Plan Assessment and plan (1) Lower gastrointestinal bleed: Start date: 04/09/25 Status: Acute Assessment and plan: - Secondary to adenocarcinoma of colon - Now postop day 5 s/p Right hemicolectomy with ileocolic anastomosis 04/09 - Appreciate surgical guidance. - Unfortunately appears to be developing Ileus today, back to NPO with fluids (2) Anemia, blood loss: Status: Acute Assessment and plan: Stabilized, never got transfusion. Monitor for bleeding. (3) Adenocarcinoma, colon: Start date: 04/09/25 Status: Acute Assessment and plan: - As above. -Chest CT showed multiple scattered bilateral tiny pulmonary nodules. Largest nodule is in the posterior right upper lobe which measures 9 by 4 millimeters. The findings are suspicious for metastatic disease. Make plan for oncology f/u at discharge. (4) Giant cell arteritis: Status: Chronic Assessment and plan: -In remission, on home steroid regimen (5) Essential hypertension: Status: Chronic Assessment and plan: - Resume when patient taking PO again (6) Chronic obstructive lung disease: Status: Chronic Assessment and plan: -Continue home meds -IS and acapella s/p surgery (7) S/P TAVR (transcatheter aortic valve replacement): Status: Acute Assessment and plan: -On ASA only - bio-prosthetic valve -holding d/t acute GIB (8) CKD (chronic kidney disease): Status: Chronic Assessment and plan: -Cr at baseline Subjective Subjective Patient reports: voiding w/o difficulty; denies shortness of breath or fever Interval history since last seen: Zeny was eating a small amount of solids, feeling better, though still tired. Had BMs without bleeding. After lunch, however, had sudden onset of bilious vomiting. Exam Narrative Exam Narrative: Well-appearing older female laying in bed in no acute distress, Alert and oriented. Heart regular rhythm, lungs clear to auscultation bilaterally, abdomen soft, mild diffuse tenderness more near surgical incision site with bandage over top with slight drainage on bandage. Ext: no c/c/e GI Other: Her abdomen is soft and nondistended. She has appropriate incisional tenderness. The anthony dressing looks fine. Objective Last Vital Signs Temp 35.9 C L 04/14/25 15:16 Pulse 80 04/14/25 15:16 Resp 17 04/14/25 15:16 BP 148/73 H 04/14/25 15:16 Pulse Ox 93 04/14/25 15:16 Laboratory Results - last 24 hr 04/11/25 04/11/25 04/11/25 10:55 15:05 15:05 Blood Type (Referred) POS Blood Group (off-site) O Antibody Identification Anti-E Antibody ID Referred SEE COMMENT SEE COMMENT Direct Antiglob Test NEG Crossmatch See Detail PAWSS Have you Been Recently Intoxicated or Drunk Within the Last 30 days?: No Have you Ever Experienced Previous Episodes of Alcohol Withdrawal?: No Have you ever Experienced Withdrawal Seizures?: No Have you ever Experienced Delirium Tremens(DT)s?: No Have you ever undergone Alcohol Rehabilitation Treatment (i.e, inpt ot outpatient treatment programs)?: No Have you ever Experienced Blackouts?: No Have you ever Combined Alcohol with other Downers within the last 90 days?: No Have you ever Combined Alcohol with any other Substance of Abuse during the last 90 days?: No Positive Blood Alcohol level on Presentation? [PCS.BAL]: No Evidence of Increased Autonomic Activity (i.e. HR>120, tremor, sweating, agitation, nausea)?: No Result: 0 Time Spent with Patient Time Spent with Patient: 35-49 minutes Time was spent: preparing to see the patient(eg.review tests), obtaining and/or reviewing separately otained hiistory, ordering medications,tests, procedures, referring, communicating with other health healthcare sales representative, indepentently interpreting results, counseling the patient and care coordination
[2025-04-14] MEDS: fentaNYL 100 MCG/2 ML VIAL 50 MCG IVP (19:00)
[2025-04-14] MEDS: POTASSIUM CHLORIDE/D5-0.45NACL 1,000 ML 100 MEQ IV (19:02)
--- NOTE | 2025-04-14 23:12 | DI.RAD_ITS ---
Exam(s) XR ABDOMEN FLAT PLATE EXAM: XR ABDOMEN FLAT PLATE CLINICAL HISTORY: ng tube placement (check w nurse for timing). TECHNIQUE: 2D digital imaging was performed. COMPARISON: Compared to earlier same date FINDINGS: AP supine view the abdomen: Visualize lung bases are clear. Aortic valve TAVR again noted. There is no an NG tube in place with its distal tip in the gastric fundus. The stomach is not overly distended. Again noted is evidence of recent laparotomy. Dilated air-filled small bowel loops in the left side of the abdomen appear unchanged from earlier same date. IMPRESSION: NG tube is in the gastric fundus. Persistent air-filled moderately dilated small bowel loops in left side of the abdomen appear unchanged from earlier same date. DATA REPOSITORY: RADIATION DOSE DELIVERED:
[2025-04-14] MEDS: HYDROmorphone 2 MG TAB PO (23:29)
--- NOTE | 2025-04-15 00:31 | DI.VRAD_ITS ---
PROCEDURE INFORMATION: Exam: XR Abdomen Exam date and time: 04/14/2025 11:09 PM Age: 84 years old Clinical indication: Device placement; Gi device; Nasogastric tube; Prior surgery; Surgery date: Post-operative (0-2 days); Surgery type: Colonoscopy with polypectomy TECHNIQUE: Imaging protocol: Radiologic exam of the abdomen. Views: Frontal supine view of the abdomen. 1 View. COMPARISON: CR XR ABDOMEN FLAT PLATE 04/14/2025 6:38 PM FINDINGS: Tubes, catheters and devices: A gastric feeding tube is present within the stomach. Gastrointestinal tract: Dilated loops of bowel may represent postop ileus. Intraperitoneal space: Surgical funmilayo noted in the lower abdomen. Bones/joints: The lumbar spine demonstrates moderate degenerative changes at multiple levels. IMPRESSION: Dilated loops of bowel may represent postop ileus. Dictated and Authenticated by: Christi Ventura MD. Orderin Sindhu Mcqueen MD
[2025-04-15 02:49] VITALS: BP 186/87; PULSE 102; TEMP 36.4; O2SAT 95
[2025-04-15] MEDS: ACETAMINOPHEN 1,000 MG/100 ML BAG 400 MG IVPB ×3 (03:09→19:34)
[2025-04-15] MEDS: POTASSIUM CHLORIDE/D5-0.45NACL 1,000 ML 100 MEQ IV ×2 (04:30→19:15)
[2025-04-15] MEDS: Normal Saline Flush 10 ML SYR IVP ×3 (05:58→19:47)
[2025-04-15 06:52] LABS: Abs Immature Grans 0.20 10^3/uL (0.0-0.06); HCT 26.9 % (36.0-46.0); HGB 8.6 g/dL (11.2-15.7); Immature Grans % 1.8 %; MCH 27.2 pg (27.0-33.0); MCHC 32.0 % (32.0-36.0); MCV 85 fL (80-95); MPV 10.0 fL (8.0-11.0); Platelet Count 364 10^3/uL (130-400); RBC 3.16 10^6/uL (3.93-5.22); RDW 16.8 % (11.7-14.6); RDW-SD 53.1 fL; WBC 11.34 10^3/uL (4.4-10.8)
[2025-04-15 07:24] LABS: Anion Gap 7.1 mmol/L (3-11); BUN 10 mg/dL (7-18); CO2 26.9 mmol/L (21.0-32.0); Calcium 8.8 mg/dL (8.5-10.1); Chloride 103 mmol/L (98-107); Estimated GFR 40.80 (mL/min/1.73m2); Glucose 97 mg/dL (74-106); Magnesium 1.4 mg/dL (1.8-2.4); Potassium 3.6 mmol/L (3.5-5.1); Sodium 137 mmol/L (136-145)
[2025-04-15 07:33] VITALS: BP 124/61; PULSE 84; RESP 20; TEMP 36.3; O2SAT 96
[2025-04-15] MEDS: HYDROmorphone 2 MG TAB PO ×3 (08:10→23:25)
[2025-04-15] MEDS: Metoprolol CR 25 MG TABCR PO (08:10)
[2025-04-15] MEDS: Calcium 600mg/Vit D 200U TAB 1 TAB PO (08:10)
[2025-04-15] MEDS: amLODIPine 5 MG TAB PO (08:11)
[2025-04-15] MEDS: hydroCHLOROthiazide 25 MG TAB PO (08:11)
[2025-04-15] MEDS: Pantoprazole 40 MG TABCR PO (08:11)
[2025-04-15] MEDS: Escitalopram 10 MG TAB PO (08:11)
[2025-04-15] MEDS: Cholecalciferol (Vitamin D3) 1,000 UNIT TAB 2000 UNITS PO (08:11)
--- NOTE | 2025-04-15 08:51 | W.PM.PROGNOT ---
Date of Service Date of service: 04/15/25 Time of Service: 08:52 Assessment and Plan Assessment and plan (1) Status post laparotomy: Status: Acute Assessment and plan: POD 6 s/p open right hemicolectomy for bleeding colon mass/cancer. Continue NPO; May have ice chips NG tube in place wtih ~300cc's output so far this morning. Pain is intermittently controlled. Increases with activity and coughing as anticipated. No BM or flatus since yesterday 04/14 DDX- Post-operative Ileus. Will continue with bowel rest, NG tube will remain in place. Encouraged activity OOB, ambulation to promote GI motility. SCDs should be on whenever she is in bed. Strongly encouraged pulmonary toilet for pnuemonia prevention. (2) Vomiting (bilious) following gastrointestinal surgery: Status: Acute (3) Adenocarcinoma, colon: Status: Acute Assessment and plan: Subjective Subjective Interval history since last seen: Arrived with the patient resting comfortably in bed. She describes that her discomfort is slightly better and describes that her discomfort is mostly incisional pain at this time. She states that she is belching more frequently. She is not passing any flatus and has not had a bowel movement since yesterday. Exam Const General: cooperative, healthy appearing and comfortable Orientation: alert and oriented x3 Resp Effort & Inspection: normal respiratory effort, no audible wheezes and no cough GI Inspection: distended Palpation: soft, no guarding and tender Auscultation: hypoactive bowel sounds Objective Last Vital Signs Temp 36.3 C L 04/15/25 07:33 Pulse 84 04/15/25 07:33 Resp 20 04/15/25 07:33 BP 124/61 04/15/25 07:33 Pulse Ox 96 04/15/25 07:33 Laboratory Results - last 24 hr 04/11/25 04/11/25 04/11/25 10:55 15:05 15:05 WBC RBC Hgb Hct MCV MCH MCHC RDW Plt Count MPV Immature Gran % Neutrophils % Lymphocytes % Monocytes % Eosinophils % Basophils % Nucleated RBC % Absolute Neutrophils Absolute Lymphocytes Absolute Monocytes Absolute Eosinophils Absolute Basophils Sodium Potassium Chloride Carbon Dioxide Anion Gap BUN Creatinine Est GFR (CKD-EPI 2020) Glucose Calcium Magnesium Blood Type (Referred) POS Blood Group (off-site) O Antibody Identification Anti-E Antibody ID Referred SEE COMMENT SEE COMMENT Direct Antiglob Test NEG Crossmatch See Detail 04/15/25 06:20 WBC 11.34 H RBC 3.16 L Hgb 8.6 L Hct 26.9 L MCV 85 MCH 27.2 MCHC 32.0 RDW 16.8 H Plt Count 364 MPV 10.0 Immature Gran % 1.8 Neutrophils % 72.6 Lymphocytes % 12.2 Monocytes % 10.1 Eosinophils % 2.8 Basophils % 0.5 Nucleated RBC % 0.0 Absolute Neutrophils 8.23 H Absolute Lymphocytes 1.38 Absolute Monocytes 1.15 H Absolute Eosinophils 0.32 Absolute Basophils 0.06 Sodium 137 Potassium 3.6 Chloride 103 Carbon Dioxide 26.9 Anion Gap 7.1 BUN 10 Creatinine 1.3 H Est GFR (CKD-EPI 2020) 40.80 Glucose 97 Calcium 8.8 Magnesium 1.4 L Blood Type (Referred) Blood Group (off-site) Antibody Identification Antibody ID Referred Direct Antiglob Test Crossmatch PAWSS Have you Been Recently Intoxicated or Drunk Within the Last 30 days?: No Have you Ever Experienced Previous Episodes of Alcohol Withdrawal?: No Have you ever Experienced Withdrawal Seizures?: No Have you ever Experienced Delirium Tremens(DT)s?: No Have you ever undergone Alcohol Rehabilitation Treatment (i.e, inpt ot outpatient treatment programs)?: No Have you ever Experienced Blackouts?: No Have you ever Combined Alcohol with other Downers within the last 90 days?: No Have you ever Combined Alcohol with any other Substance of Abuse during the last 90 days?: No Positive Blood Alcohol level on Presentation? [PCS.BAL]: No Evidence of Increased Autonomic Activity (i.e. HR>120, tremor, sweating, agitation, nausea)?: No Result: 0 Time Spent with Patient Time Spent with Patient: <25 minutes Time was spent: preparing to see the patient(eg.review tests), indepentently interpreting results and counseling the patient
--- NOTE | 2025-04-15 08:55 | CMPROGNOTE_ITS ---
Date of service: 04/15/25 Time of Service: 08:55 Care Management Progress Note Progress Note Text Progress Note Text: Zeny was sitting up in bed when CM met with her. Her diet was advanced yesterday but Zeny did not tolerate the change very well. Last night she began vomiting and had additional imaging which revealed a possible post-op ileus. An NG tube was placed and she was again made NPO. Today Zeny stated she is feeling a little better, especially after the tube was placed. She continues to have abdominal discomfort which is controlled with pain medication (po hydromorphone). Referrals had been sent to [facility] and [facility] for STR. Neither [facility] has any bed availability, however Zeny would not be medically ready for transfer at this time anyway. Discharge Potential Discharge Needs: Other (SNF for short term rehab) Anticipated Barriers to Discharge: Bed availability Patient/Family Education Needs: Review discharge instructions, discuss Ask Me Three Transportation: Private vehicle Plan: Anticipate Zeny may be transferred to a SNF for short term rehab prior to returning home when medically cleared. Referrals were sent to [facility], however neither had bed availability until next week at the earliest. With the new ileus, Zeny is not medically ready. CM will follow and continue to assess for discharge needs. Social Determinants of Health Screening Social Determinants of health last assessed in clinic: 04/13/25 Will the Patient Participate in the Screening?: Unable to obtain Do you worry about having a steady place to live?: yes What is your living situation today?: I have housing today, but am worried about losing it Problems where you live: no known problems In the past 12 months, have you had to go without electric, gas, oil or water in your home?: no Has lack of transportation kept you from medical appointments or from doing things needed for daily living?: no Has anyone in your life made you feel unsafe or unsupported?: no How hard is it for you to pay for the very basics like food, housing, medical care, and heating? Would you say it is:: Not hard at all Do you want help finding or keeping work or a job?: I do not need or want help If for any reason you need help with day-to-day activities such as bathing, preparing meals, shopping, managing finances, etc., do you get the help you need?: I don?t need any help How often do you feel lonely or isolated from those around you?: Never Do you speak a language other than French at home?: No Does the patient want assistance with any of the above?: No Health Related Social Needs Health related social needs: housing instability, housed, with risk of homelessness (Z59.811)
[2025-04-15] MEDS: Ondansetron 4 MG/2 ML VIAL IVP ×2 (10:14→19:32)
[2025-04-15] MEDS: Enoxaparin 40 MG/0.4 ML SYR SC (10:14)
[2025-04-15] MEDS: MAGNESIUM SULFATE 2 GM/50 ML BAG IV_INF (10:15)
[2025-04-15 11:05] VITALS: BP 142/63; PULSE 90; RESP 20; TEMP 36.8; O2SAT 96
--- NOTE | 2025-04-15 11:13 | W.NUTRFU ---
Date of service: 04/15/25 Time of Service: 11:13 Nutrition Note NOTE: Pt status change to NPO as she developed post op ileus. NGT currrently in place. No weight taken since 04/10 with patient having inadequate intake over at least week - would recommend daily weights. Low Mag today at 1.4 and ordered for IV repletion Oral nutrition supps on hold. Will monitor status/diet advancement to offer education and additional nutrition supplements as appropriate Time Spent in Nutritional Counseling and Treatment: 0
--- NOTE | 2025-04-15 12:02 | PT.INTREAT ---
PT Notes Visit Reasons: Lower GIB Inpatient Physical Therapy Treatment Note [facility] Date: 04/15/2025 PRECAUTIONS: IV access , abdominal drain, NGTube to suction SUBJECTIVE: Patient reports pain in her abdomen but would like to try walking after she uses the bathroom. Pt reports discomfort in her buttocks after sitting reclined in chair. PM: Pt approached for PT session mid afternoon. Pt reporting increased fatigue and discomfort. Pt pleasantly declined participation in second session. Family visiting and educated on POC for the next several days. Pt in agreement. OBJECTIVE: patient seated in bedside chair new NGTube in place . Nurse disconnected for ambulation? PAIN: Abdomen 02/20 nurse notified pain meds given VITALS: ?Monitored by nursing Therapeutic Activities ([id number][]): Direct one-on-one instruction in dynamic activities to improve functional performance. ? BED MOBILITY/TRANSFERS? Rolling L/R: Supervision with bilateral knees flexed Supine-sit: Via side-lying min assist ? Sit-supine: Min assist for lower extremities due to abdominal pain ? Sit-stand: Standby assist with cues to push up from surface x 1/ 3 trials? Stand-sit: Standby assist with cues to reach back for surface ? ?x 1/3 trials ? Bed-Chair: With 4 wheeled walker standby assist ? Chair-bed: With four-wheel walker standby assist Provided skilled cues and instruction on performance and technique throughout. Ambulation: Facilitated safe and correct performance of level surface ambulation covering a distance of 30 feet x 1 ;10feet x 2 using use 4 wheeled walker with contact guard assist . Pt took one seated rest on the 4WW. Did not report of any increased pain. Denied headache, chest pain, and lightheadedness throughout activity. Minimal verbal cueing provided for AD management, directional changes, and posture. ASSESSMENT: fair tolerance to session today d/t pain and discomfort from NG tube. Pt reports being very fatigued today after poor sleep. Pt with decreased stability with ambulation with 4WW with turns this session requiring CGA. PLAN: Continue per POC until medically appropriate for discharge TREATMENT CODE/TIME: 1st session:[id number] 2nd session: no charge 8 mins of education on role of PT/POC FOR WEEKEND DISCHARGE RECOMMENDATION: Home with PT when medically appropriate
[2025-04-15 15:18] VITALS: BP 150/67; PULSE 80; RESP 16; TEMP 36; O2SAT 98
[2025-04-15] MEDS: Benzocaine/Menthol LOZG 15/BOX 1 EACH SUC (15:24)
--- NOTE | 2025-04-15 17:59 | W.PM.PROGNOT ---
Date of Service Date of service: 04/15/25 Time of Service: 17:59 Assessment and Plan Assessment and plan (1) Status post laparotomy: Status: Acute Assessment and plan: - Presented with lower GI bleed, which has resolved. - Found adenocarcinoma of colon - Now postop day 6 s/p Right hemicolectomy with ileocolic anastomosis 04/09 - Unfortunately Ileus 7/2 PM, back to NPO with fluids - Appreciate surgical guidance, no TPN for now (2) Anemia, blood loss: Status: Acute Assessment and plan: Stabilized, never got transfusion. Monitor for bleeding. H/H stable today (3) Adenocarcinoma, colon: Start date: 04/09/25 Status: Acute Assessment and plan: - As above. -Chest CT showed multiple scattered bilateral tiny pulmonary nodules. Largest nodule is in the posterior right upper lobe which measures 9 by 4 millimeters. The findings are suspicious for metastatic disease. - Will need f/u with oncology f/u at discharge. (4) Giant cell arteritis: Status: Chronic Assessment and plan: -In remission, on home steroid regimen (5) Essential hypertension: Status: Chronic Assessment and plan: - Resume when patient taking PO again (6) Chronic obstructive lung disease: Status: Chronic Assessment and plan: -Continue home meds -IS and acapella s/p surgery (7) S/P TAVR (transcatheter aortic valve replacement): Status: Acute Assessment and plan: -On ASA only - bio-prosthetic valve -holding d/t acute GIB (8) CKD (chronic kidney disease): Status: Chronic Assessment and plan: -Cr at baseline again today (9) Hypomagnesemia: Status: Acute Assessment and plan: low again today, replace again today Subjective Subjective Patient reports: voiding w/o difficulty; denies shortness of breath or fever Interval history since last seen: Events: NGT placed for ileus per Dr. Hawkins She is no longer vomiting, less pain since NGT placed. Exam Narrative Exam Narrative: Older female sitting up in bed, NGT in place but in no acute distress, Alert and oriented. Heart regular rhythm, 2/6 murmur, lungs clear to auscultation bilaterally, abdomen hypoactive BS, soft, mild diffuse tenderness, incision intact with slight drainage on dressing. Ext: no c/c/e Objective Last Vital Signs Temp 36 C L 04/15/25 15:18 Pulse 80 04/15/25 15:18 Resp 16 04/15/25 15:18 BP 150/67 H 04/15/25 15:18 Pulse Ox 98 04/15/25 15:18 Laboratory Results - last 24 hr 04/15/25 06:20 WBC 11.34 H RBC 3.16 L Hgb 8.6 L Hct 26.9 L MCV 85 MCH 27.2 MCHC 32.0 RDW 16.8 H Plt Count 364 MPV 10.0 Immature Gran % 1.8 Neutrophils % 72.6 Lymphocytes % 12.2 Monocytes % 10.1 Eosinophils % 2.8 Basophils % 0.5 Nucleated RBC % 0.0 Absolute Neutrophils 8.23 H Absolute Lymphocytes 1.38 Absolute Monocytes 1.15 H Absolute Eosinophils 0.32 Absolute Basophils 0.06 Sodium 137 Potassium 3.6 Chloride 103 Carbon Dioxide 26.9 Anion Gap 7.1 BUN 10 Creatinine 1.3 H Est GFR (CKD-EPI 2020) 40.80 Glucose 97 Calcium 8.8 Magnesium 1.4 L PAWSS Have you Been Recently Intoxicated or Drunk Within the Last 30 days?: No Have you Ever Experienced Previous Episodes of Alcohol Withdrawal?: No Have you ever Experienced Withdrawal Seizures?: No Have you ever Experienced Delirium Tremens(DT)s?: No Have you ever undergone Alcohol Rehabilitation Treatment (i.e, inpt ot outpatient treatment programs)?: No Have you ever Experienced Blackouts?: No Have you ever Combined Alcohol with other Downers within the last 90 days?: No Have you ever Combined Alcohol with any other Substance of Abuse during the last 90 days?: No Positive Blood Alcohol level on Presentation? [PCS.BAL]: No Evidence of Increased Autonomic Activity (i.e. HR>120, tremor, sweating, agitation, nausea)?: No Result: 0 Time Spent with Patient Time Spent with Patient: 35-49 minutes Time was spent: preparing to see the patient(eg.review tests), obtaining and/or reviewing separately otained hiistory, ordering medications,tests, procedures, referring, communicating with other health wound care specialist, indepentently interpreting results, counseling the patient and care coordination
[2025-04-15 20:01] VITALS: BP 138/71; PULSE 88; RESP 22; TEMP 36.4; O2SAT 96
[2025-04-15 23:06] VITALS: BP 149/71; PULSE 82; RESP 22; TEMP 36.2; O2SAT 95
[2025-04-16] VITALS (7 sets, daily range): BP systolic 114–160; BP diastolic 55–100; PULSE 71–95; RESP 16–24; TEMP 35.7–36.5; O2SAT 94–98
[2025-04-16] MEDS: ACETAMINOPHEN 1,000 MG/100 ML BAG 400 MG IVPB ×3 (04:29→19:37)
[2025-04-16] MEDS: POTASSIUM CHLORIDE/D5-0.45NACL 1,000 ML 100 MEQ IV ×2 (04:33→15:00)
[2025-04-16] MEDS: Normal Saline Flush 10 ML SYR IVP ×3 (04:33→19:44)
[2025-04-16] MEDS: Ondansetron 4 MG/2 ML VIAL IVP (05:21)
[2025-04-16] MEDS: amLODIPine 5 MG TAB PO (07:51)
[2025-04-16] MEDS: Pantoprazole 40 MG TABCR PO (07:52)
[2025-04-16] MEDS: Metoprolol CR 25 MG TABCR PO (07:52)
[2025-04-16] MEDS: hydroCHLOROthiazide 25 MG TAB PO (07:52)
[2025-04-16] MEDS: Enoxaparin 40 MG/0.4 ML SYR SC (07:53)
--- NOTE | 2025-04-16 09:58 | W.PM.PROGNOT ---
Date of Service Date of service: 04/16/25 Time of Service: 09:58 Assessment and Plan Assessment and plan (1) Status post laparotomy: Status: Acute Assessment and plan: POD 7 s/p open right hemicolectomy for bleeding colon mass/cancer. post op ileus. Awaiting return of bowel function. she is improving and ng output quality is better, less bilious. I think she will have consistent gas soon. Continue NPO status w ng tube. SCDs lovenox for dvt ppx. IV fluids. 4g magnesium sulfate today 40meq KCl. (2) Vomiting (bilious) following gastrointestinal surgery: Status: Acute Assessment and plan: due to ileus. see above (3) Adenocarcinoma, colon: Status: Acute Assessment and plan: path pending for staging. Lung CT possible mets. onc as outpt. Subjective Subjective Interval history since last seen: no acute events overnight. Feels better this morning, abdomen is still sore especially when she coughs but overall feels good. Thinks she may have had some flatus todayonce but isnt sure. No nausea. NG tube 950mL last 24h. Exam Const General: cooperative, healthy appearing and comfortable Orientation: alert and oriented x3 Resp Effort & Inspection: normal respiratory effort, no audible wheezes and no cough GI Inspection: distended Palpation: soft, no guarding and tender Auscultation: hypoactive bowel sounds Objective Last Vital Signs Temp 96.8 F L 04/16/25 07:10 Pulse 93 H 04/16/25 07:10 Resp 17 04/16/25 07:10 BP 114/62 04/16/25 07:10 Pulse Ox 98 04/16/25 07:10 Objective Narrative Objective Narrative: awake, NAD eomi, MMM normal resp effort abdomen soft, nondistended, anthony dressing intact PAWSS Have you Been Recently Intoxicated or Drunk Within the Last 30 days?: No Have you Ever Experienced Previous Episodes of Alcohol Withdrawal?: No Have you ever Experienced Withdrawal Seizures?: No Have you ever Experienced Delirium Tremens(DT)s?: No Have you ever undergone Alcohol Rehabilitation Treatment (i.e, inpt ot outpatient treatment programs)?: No Have you ever Experienced Blackouts?: No Have you ever Combined Alcohol with other Downers within the last 90 days?: No Have you ever Combined Alcohol with any other Substance of Abuse during the last 90 days?: No Positive Blood Alcohol level on Presentation? [PCS.BAL]: No Evidence of Increased Autonomic Activity (i.e. HR>120, tremor, sweating, agitation, nausea)?: No Result: 0 Time Spent with Patient Time Spent with Patient: <25 minutes Time was spent: preparing to see the patient(eg.review tests), ordering medications,tests, procedures, indepentently interpreting results and care coordination
--- NOTE | 2025-04-16 10:15 | RT.EKG_ITS ---
APPROVED REPORT Exam: Resting ECG Reason for Exam: dizziness Patient Location: I HR:81 bpm ECG Measurements Heart Rate 81 AXIS OR 186 P 58 QRSd 89 QRS -15 QT 390 T 80 QTc 453 Conclusion Sinus rhythm...normal P axis, V-rate 50- 99 early transition...QRS area>0 in V2 Nonspecific T abnormalities, lateral leads...T <-0.10mV, I aVL V5 V6
[2025-04-16 11:15] LABS: HCT 29.3 % (36.0-46.0); HGB 9.2 g/dL (11.2-15.7); MCH 26.8 pg (27.0-33.0); MCHC 31.4 % (32.0-36.0); MCV 85 fL (80-95); MPV 9.9 fL (8.0-11.0); Platelet Count 383 10^3/uL (130-400); RBC 3.43 10^6/uL (3.93-5.22); RDW 17.1 % (11.7-14.6); RDW-SD 53.3 fL; WBC 13.22 10^3/uL (4.4-10.8)
[2025-04-16 11:28] LABS: Magnesium 1.4 mg/dL (1.8-2.4)
[2025-04-16 11:35] LABS: Anion Gap 8.7 mmol/L (3-11); BUN 11 mg/dL (7-18); CO2 26.3 mmol/L (21.0-32.0); Calcium 8.5 mg/dL (8.5-10.1); Chloride 99 mmol/L (98-107); Estimated GFR 49.86 (mL/min/1.73m2); Glucose 119 mg/dL (74-106); Potassium 3.6 mmol/L (3.5-5.1); Sodium 134 mmol/L (136-145)
[2025-04-16] MEDS: MAGNESIUM SULFATE 4 GM/100 ML BAG IV_INF (14:30)
--- NOTE | 2025-04-16 14:48 | PGE_ITS ---
Date of Service Date of service: 04/16/25 Time of Service: 14:48 Assessment and Plan Assessment and plan (1) Postural dizziness with presyncope: Status: Acute Assessment and plan: Likely vagal with NGT in place, happened while standing Morning labs resassuring, h/h increased. No orthostasis at least lying/sitting EKG with some non-specific changes, at this point get one troponin 4 hours from event, reassuring if negative. Back on tele for now. Hit left side but no sign of fracture, RN slowed fall. (2) Status post laparotomy: Status: Acute Assessment and plan: - Presented with lower GI bleed, which has resolved. - adenocarcinoma of colon on 03/23 colonoscopy pathology, surgical path pending - Now postop day 7 s/p Right hemicolectomy with ileocolic anastomosis 04/09 - Unfortunately Ileus 7/ PM, back to NPO with fluids - Appreciate surgical guidance, no TPN for now, expects improvement by 04/17 (3) Anemia, blood loss: Status: Acute Assessment and plan: Stabilized, never got transfusion. Monitor for bleeding. H/H stable today (4) Adenocarcinoma, colon: Start date: 04/09/25 Status: Acute Assessment and plan: - As above. -Chest CT showed multiple scattered bilateral tiny pulmonary nodules. Largest nodule is in the posterior right upper lobe which measures 9 by 4 millimeters. The findings are suspicious for metastatic disease. - Will need f/u with oncology f/u at discharge. (5) Giant cell arteritis: Status: Chronic Assessment and plan: -In remission, on home steroid regimen (6) Essential hypertension: Status: Chronic Assessment and plan: - Resume when patient taking PO again (7) Chronic obstructive lung disease: Status: Chronic Assessment and plan: -Continue home meds -IS and acapella s/p surgery (8) S/P TAVR (transcatheter aortic valve replacement): Status: Acute Assessment and plan: -On ASA only - bio-prosthetic valve -holding d/t acute GIB (9) CKD (chronic kidney disease): Status: Chronic Assessment and plan: -Cr at baseline again today (10) Hypomagnesemia: Status: Acute Assessment and plan: low again today, replace again today 4g, follow Subjective Subjective Patient reports: nausea; denies diarrhea, vomiting or fever Interval history since last seen: Events: Was transferring from chair to bed, felt dizzy and fell with nurse on right side. She still feels a little light headed. Never had chest pain or palpitations. did not hit head or LOC. Exam Narrative Exam Narrative: Older female sitting up in bed, NGT in place but in no acute distress, Alert and oriented. Heart regular rhythm, 1-2/6 systolic murmur, lungs clear to auscultation bilaterally, abdomen hypoactive BS, soft, mild diffuse tenderness, incision intact with slight drainage on dressing. Ext: no c/c/e. Normal ROM right hip/knee without pain. Mildly tender over trochanter laterally after fall. Objective Last Vital Signs Temp 36.5 C 04/16/25 10:30 Pulse 85 04/16/25 10:30 Resp 16 04/16/25 10:30 BP 137/83 04/16/25 10:30 Pulse Ox 94 04/16/25 10:30 Laboratory Results - last 24 hr 04/16/25 10:50 WBC 13.22 H RBC 3.43 L Hgb 9.2 L Hct 29.3 L MCV 85 MCH 26.8 L MCHC 31.4 L RDW 17.1 H Plt Count 383 MPV 9.9 Sodium 134 L Potassium 3.6 Chloride 99 Carbon Dioxide 26.3 Anion Gap 8.7 BUN 11 Creatinine 1.1 H Est GFR (CKD-EPI 2020) 49.86 Glucose 119 H Calcium 8.5 Magnesium 1.4 L Objective Narrative Objective Narrative: EKG: NSR, nl axis, no STEMI, Ts flat diffusely (not noted in previous) PAWSS Have you Been Recently Intoxicated or Drunk Within the Last 30 days?: No Have you Ever Experienced Previous Episodes of Alcohol Withdrawal?: No Have you ever Experienced Withdrawal Seizures?: No Have you ever Experienced Delirium Tremens(DT)s?: No Have you ever undergone Alcohol Rehabilitation Treatment (i.e, inpt ot outpatient treatment programs)?: No Have you ever Experienced Blackouts?: No Have you ever Combined Alcohol with other Downers within the last 90 days?: No Have you ever Combined Alcohol with any other Substance of Abuse during the last 90 days?: No Positive Blood Alcohol level on Presentation? [PCS.BAL]: No Evidence of Increased Autonomic Activity (i.e. HR>120, tremor, sweating, agitation, nausea)?: No Result: 0 Time Spent with Patient Time Spent with Patient: 35-49 minutes Time was spent: preparing to see the patient(eg.review tests), obtaining and/or reviewing separately otained hiistory, ordering medications,tests, procedures, referring, communicating with other health healthcare social worker, indepentently interpreting results, counseling the patient and care coordination
--- NOTE | 2025-04-16 15:01 | PT.INNT ---
PT Notes Visit Reasons: Lower GIB 2 attempts have been made today to see patient. First time the RT came in for ECG testing, the second time patient refused to do anything due to headache and worsening lightheaddness. bed level exercises was going to be offerred but a laboratoy staff came in to draw blood. Patient added that she does better in the morning.
[2025-04-16 15:31] LABS: Troponin I 216 ng/L (<or=51)
[2025-04-16] MEDS: Aspirin 81 MG CHEW 324 MG CH (16:53)
[2025-04-16] MEDS: HYDROmorphone 2 MG TAB PO (18:19)
[2025-04-16 19:03] LABS: Troponin I 183 ng/L (<or=51)
[2025-04-16] MEDS: Atorvastatin 40 MG TAB 80 MG PO (19:38)
[2025-04-16] MEDS: Aspirin E.C. 81 MG TABEC PO (19:38)
[2025-04-17 00:52] VITALS: TEMP 35.6
[2025-04-17] MEDS: Ondansetron 4 MG/2 ML VIAL IVP (00:55)
[2025-04-17] MEDS: Normal Saline Flush 10 ML SYR IVP ×4 (00:56→12:44)
[2025-04-17] MEDS: HYDROmorphone 2 MG TAB PO ×2 (01:08→20:34)
[2025-04-17] MEDS: POTASSIUM CHLORIDE/D5-0.45NACL 1,000 ML 100 MEQ IV ×2 (01:10→15:23)
[2025-04-17 02:03] VITALS: BP 134/57; PULSE 86; RESP 22; TEMP 35.6; O2SAT 95
[2025-04-17] MEDS: ACETAMINOPHEN 1,000 MG/100 ML BAG 400 MG IVPB ×3 (03:41→20:31)
[2025-04-17 06:50] LABS: HCT 27.6 % (36.0-46.0); HGB 8.6 g/dL (11.2-15.7); MCH 26.3 pg (27.0-33.0); MCHC 31.2 % (32.0-36.0); MCV 84 fL (80-95); MPV 9.6 fL (8.0-11.0); Platelet Count 369 10^3/uL (130-400); RBC 3.27 10^6/uL (3.93-5.22); RDW 17.1 % (11.7-14.6); RDW-SD 52.9 fL; WBC 11.59 10^3/uL (4.4-10.8)
[2025-04-17 07:12] LABS: Magnesium 2.0 mg/dL (1.8-2.4)
[2025-04-17 07:13] VITALS: BP 126/73; PULSE 85; RESP 16; TEMP 36.9; O2SAT 97
[2025-04-17 07:21] LABS: Troponin I 140 ng/L (<or=51)
--- NOTE | 2025-04-17 08:01 | W.PM.PROGNOT ---
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 Unfortunately she has developed a large upper midline ventral hernia already. She is really a set up for this considering she had a prior midline incision(open GB thru midline) to begin with, has been on chronic steroids(and remains on steroids), is malnourished, has a chronic cough, then had vomiting a few nights ago and then fell yesterday. While we do not have pathology back on the colon specimen yet, we do know that this is adenocarcinoma and her chest CT from a couple of weeks ago shows multiple, BILATERAL pulmonary nodules that are suspicious for metastatic disease. She is DNR/DNI and appropriately so. Overall, she is really not doing very well. She has had minimal bowel function and is desperate for nutrition. Her NG tube has not put out very much in her CT scan to me does not show any obvious obstruction. She has some dilated loops of small bowel but they are not profound and I think we need to try some enteral feeding before doing anything else. She is high?risk for evisceration considering the fascial dehiscence that has occurred, but at this time, I think holding the course and not doing any more surgery on her is the best course of action. I had an extensive discussion with her at the bedside and her son and her daughter. There is no good option here. On one hand, the hernia needs to be repaired since it is causing pain and may be related to the ileus she is experiencing. On the other hand, she has had elevated troponins and is completely debilitated and having anesthesia and her laparotomy incision reopened is going to be a significant step backwards. In my opinion she has stage IV, metastatic colon cancer. While that has not been proven 100%, I think that is the likely scenario and this needs to be taken into account when making decisions. I recommend we try to get nutrition and her and keep an abdominal binder over the skin of the incision in hopes of containing the hernia and preventing any further dehiscence. #1. If she cannot tolerate enteral feeding in the next 24 hours, she will need a PICC line and TPN. #2. If her skin has a dehiscence, we will need to re-operate no matter what. I am sure her fascia is in horrible condition and in the setting of the chronic steroids I doubt another primary repair can be performed. Further, she has anasarca and is very edematous which will make closing her even more challenging. She will probably need a bridging, absorbable mesh if we need to do another operation. #3. If she does tolerate enteral feeding and the abdominal binder is able to keep her skin intact, then perhaps we can bridge her out of this acute problem and get her nutritional status improved and figure out what is going on with her lungs before any other surgeries necessary on the abdominal wall. #4. She remains DNR/DNI The family and the patient are in agreement with the management plan and they understand the circumstances and the morbidity related to all of them. I relayed all the information to the hospitalist team as well. Subjective Subjective Interval history since last seen: Events of the last 24 hours: Yesterday morning the patient did get dizzy and had a fall. Overnight the patient developed increasing abdominal pain and nursing staff reported some spontaneous drainage from the midline around approximately 2:00 in the morning. I ordered a CT scan this morning considering these changes. NG tube output has been relatively scant in volume. At the bedside the patient reports her abdominal discomfort is a lot better now. She still has pain in the upper part of her incision whenever she coughs. She says that she has had a couple of bowel movements though they have not been large. The medical team has been monitoring her heart status since the event of being dizzy and falling. Troponins have been relatively stable. The family is with us at the bedside. Exam Narrative Exam Narrative: Gen: Non-toxic, comfortable and interactive, although she appears elderly, feeble and weak Neuro: Alert and oriented x3 Psych: Good mood and affect. Good insight and understanding into condition. Chest: Non-labored breathing, no wheezing, no visible shortness of breath. Heart: Regular Abdomen: Very soft. Her distention is mild. She has no peritoneal signs and is completely nontender with 1 exception: Her upper midline has a palpable, large hernia which is very tender to examination. Her midline incision is otherwise intact at the level of the skin. The funmilaoy are intact. There is no erythema. NG TUBE: Has 2-300 cc of clear gastric contents -no bile Objective Last Vital Signs Temp 98.4 F 04/17/25 07:13 Pulse 85 04/17/25 07:13 Resp 16 04/17/25 07:13 BP 126/73 04/17/25 07:13 Pulse Ox 97 04/17/25 07:13 Laboratory Results - last 24 hr 04/16/25 04/16/25 04/16/25 10:50 15:02 18:32 WBC 13.22 H RBC 3.43 L Hgb 9.2 L Hct 29.3 L MCV 85 MCH 26.8 L MCHC 31.4 L RDW 17.1 H Plt Count 383 MPV 9.9 Sodium 134 L Potassium 3.6 Chloride 99 Carbon Dioxide 26.3 Anion Gap 8.7 BUN 11 Creatinine 1.1 H Est GFR (CKD-EPI 2020) 49.86 Glucose 119 H Calcium 8.5 Magnesium 1.4 L Troponin I 216 H* 183 H* 04/17/25 06:35 WBC 11.59 H RBC 3.27 L Hgb 8.6 L Hct 27.6 L MCV 84 MCH 26.3 L MCHC 31.2 L RDW 17.1 H Plt Count 369 MPV 9.6 Sodium Potassium Chloride Carbon Dioxide Anion Gap BUN Creatinine Est GFR (CKD-EPI 2020) Glucose Calcium Magnesium 2.0 Troponin I 140 H* PAWSS Have you Been Recently Intoxicated or Drunk Within the Last 30 days?: No Have you Ever Experienced Previous Episodes of Alcohol Withdrawal?: No Have you ever Experienced Withdrawal Seizures?: No Have you ever Experienced Delirium Tremens(DT)s?: No Have you ever undergone Alcohol Rehabilitation Treatment (i.e, inpt ot outpatient treatment programs)?: No Have you ever Experienced Blackouts?: No Have you ever Combined Alcohol with other Downers within the last 90 days?: No Have you ever Combined Alcohol with any other Substance of Abuse during the last 90 days?: No Positive Blood Alcohol level on Presentation? [PCS.BAL]: No Evidence of Increased Autonomic Activity (i.e. HR>120, tremor, sweating, agitation, nausea)?: No Result: 0 Time Spent with Patient Time Spent with Patient: >50 minutes Time was spent: preparing to see the patient(eg.review tests), obtaining and/or reviewing separately [facility], ordering medications,tests, procedures, referring, communicating with other health home care consultant, indepentently interpreting results, counseling the patient and care coordination
[2025-04-17] MEDS: Normal Saline - Diluent 50 ML VIAL IJ (09:23)
[2025-04-17] MEDS: Omnipaque 350 MG/ML 100 ML BTL IJ (09:24)
--- NOTE | 2025-04-17 09:34 | DI.CT_ITS ---
Exam(s) CT ABDOMEN PELVIS W EXAM: CT ABDOMEN PELVIS W CLINICAL HISTORY: increasng abd pain, persistnt ileus, midline fluid. TECHNIQUE: Imaging Protocol: Axial computed tomography images with coronal and sagittal reformatted images were created and reviewed CONTRAST MATERIAL: Intravenous: Omnipaque-350 100cc Oral: None COMPARISON: CT CT ABDOMEN PELVIS CTA from 03/23/2025 More recent plain films were reviewed. FINDINGS: VISUALIZED LUNG BASES: Cardiac TAVR valve again noted heart size is normal. No pericardial effusion. Minimal increased markings in lung bases. Tiny amount of left pleural fluid noted.. ABDOMEN: GI: Again noted is evidence of recent midline laparotomy and right hemicolectomy.. There is a small amount of perisplenic and right-sided ascites as well as small amount of free fluid in the the dependent aspect both sides of the pelvis. There is an NG tube in the stomach with its distal tip in the g astric fundus and the stomach is not distended. However, there are persistent fluid-filled dilated (4.2 cm) small bowel loops in the left side of the abdomen which are jejunal loops and the duodenum is also mildly distended.. There is an anastomosis in the central right abdomen. There is sigmoid diverticulosis without evidence of obvious acute diverticulitis the. The colon is mostly collapsed. There is no free air and no evidence of obvious abscess in the abdomen. However in the pelvis there is some mild peripheral enhancement around the free fluid which may imply infectious. LIVER: There are a few abnormal hypodensities in the liver, largest measuring 1.6 cm and having the appearance of probable benign cysts. There are no dilated intrahepatic ducts. GALLBLADDER/BILIARY: The gallbladder is surgically absent. CBD is not dilated. PANCREAS: No evidence of pancreatic mass nor dilatation of the pancreatic duct. SPLEEN: Spleen size normal. No splenic lesions. There is some ascites surrounding the lateral aspect of the spleen. Splenic and portal veins are patent. ADRENALS: There are no significant adrenal masses. KIDNEYS:Left kidney is absent. Right kidney contains small benign cortical cysts and parapelvic cysts. No true hydronephrosis nor hydroureter. No solid renal masses. No calculi nor hydronephrosis.. ABDOMINAL AORTA: Calcified but not enlarged. Iliac arteries unremarkable. LYMPH NODES:There is no retroperitoneal nor paraaortic adenopathy. ABDOMINAL WALL: There is an anterior abdominal wall midline fat containing hernia. Does not appear to contain bowel loops. PELVIS: GI: Appendix is absent.Sigmoid diverticulosis without obvious acute diverticulitis. LYMPH NODES: There is no intrapelvic nor inguinal adenopathy. REPRODUCTIVE: Calcified uterine fibroid. No obvious ovarian masses. URINARY BLADDER: No calculi nor obvious masses evident OSSEOUS: No fractures and no significant osseous lesions. IMPRESSION: 1. Compared to the prior CT scan of 03/23/2025 there has been interval midline laparotomy and right hemicolectomy. The colon is collapsed and small bowel loops are fluid-filled and dilated up to 4.2 cm. There is no free air but there is a small amount of ascites in the upper abdomen and there is small amount of free fluid in both sides of the pelvis which exhibits some peripheral enhancement. Thus cannot exclude developing infectious process in the pelvis. As for the dilated small bowel loops it is difficult to differentiate here between small bowel obstruction at the level the anastomosis versus ileus. Given that the colon is predominately collapsed there is significant suspicious for distal small bowel obstruction. NG tube is in the stomach. Stomach is not distended. 2. There is a fat containing ventral hernia 3. Sigmoid diverticulosis without obvious diverticulitis. The colon is collapsed. 4. There is anasarca which was not evident on the prior CT scan of 03/23/2025. 5. Previous cholecystectomy. The biliary tree is not dilated. 6. The left kidney is again noted be absent. Preliminary virtual Radiology report reviewed Final report called by myself to the hospitalist 04/17/2025 at 2 p.m. RADIATION DOSE DELIVERED: 651.16mGy.cm Total DLP DATA REPOSITORY: All CT scans at this facility are submitted to the National Radiology Data Registry (NRDR) Dose Index Registry (DIR) with the [employer] (A[employer]). RADIATION OPTIMIZATION: All CT scans at this facility use at least one of these dose optimization techniques: automated exposure control; mA and/or kV adjustment per patient size (includes targeted exams where dose is matched to clinical indication); or iterative reconstruction.
--- NOTE | 2025-04-17 10:00 | DI.VRAD_ITS ---
PROCEDURE INFORMATION: Exam: CT Abdomen And Pelvis With Contrast Exam date and time: 04/17/2025 9:22 AM Age: 84 years old Clinical indication: Abdominal pain; Other: Increasng abd pain, persistnt ileus, midline fluid TECHNIQUE: Imaging protocol: Computed tomography of the abdomen and pelvis with contrast. Contrast material: OMNIPAQUE 350; Contrast volume: 75 ml; Contrast route: INTRAVENOUS (IV); COMPARISON: CT ABDOMEN PELVIS CTA 03/23/2025 4:29 PM FINDINGS: Limitations: Mild motion artifact. Lungs: Dependent changes are present in the lungs. Heart: Mitral valve calcifications. Liver: Low attenuation lesions in the liver too small to accurately characterize on CT. Gallbladder and biliary ducts: Cholecystectomy. Pancreas: No CT evidence for acute pancreatitis. Spleen: No splenomegaly. Adrenal glands: No mass. Kidneys and ureters: Left kidney absent. Low attenuation lesion in the right kidney too small to accurately characterize on CT. Stomach and bowel: Bowel resection. Generalized distension of small bowel with gas and fluid, likely reflecting known ileus. The colon is relatively collapsed and obstruction cannot be excluded. Follow-up as clinically warranted. Appendix: No evidence of appendicitis. Intraperitoneal space: Small amount of pelvic fluid. Peritoneal enhancement suggesting peritonitis. Vasculature: Atherosclerotic changes in the aorta and its branches. Aortic repair. Lymph nodes: No acute findings. Urinary bladder: No acute findings. Reproductive: No acute findings. Bones/joints: No pertinent acute abnormality seen. Soft tissues: Midline skin funmilayo. Fat containing ventral hernias. Anasarca. IMPRESSION: 1. Fluid distension of small bowel, most consistent with ileus. Cannot exclude obstruction. Follow-up as clinically warranted. 2. Additional findings as above. Dictated and Authenticated by: Inna Huang MD. Orderin Nicole Roberson MD
[2025-04-17] MEDS: amLODIPine 5 MG TAB PO (10:18)
[2025-04-17] MEDS: Pantoprazole 40 MG VIAL IVP (10:18)
[2025-04-17] MEDS: hydroCHLOROthiazide 25 MG TAB PO (10:19)
[2025-04-17] MEDS: Enoxaparin 40 MG/0.4 ML SYR SC (10:19)
[2025-04-17] MEDS: Metoprolol CR 25 MG TABCR PO (10:19)
[2025-04-17 11:10] VITALS: BP 147/68; PULSE 95; RESP 20; TEMP 36.5; O2SAT 96
--- NOTE | 2025-04-17 14:15 | W.PM.PROGNOT ---
Date of Service Date of service: 04/17/25 Time of Service: 14:15 Assessment and Plan Assessment and plan (1) Status post laparotomy: Status: Acute Assessment and plan: - Presented with lower GI bleed, which has resolved. - adenocarcinoma of colon on 03/23 colonoscopy pathology, surgical path pending - Now postop day 8 s/p Right hemicolectomy with ileocolic anastomosis 04/09 - Unfortunately Ileus 7/2 PM, back to NPO with fluids - Discussed with Dr. Rivera and radiology Dr. Pink about CT. Concern that she isn't healing, but high risk to redo surgery. Will try to feed. Should have a discussion about goals of care given concern for metastatic disease and her high-risk status. (2) Postural dizziness with presyncope: Status: Acute Assessment and plan: Likely vagal with NGT in place, happened while standing on 04/16 Morning labs resassuring, h/h increased. No orthostasis at least lying/sitting EKG with some non-specific changes, at this point get one troponin 4 hours from event, reassuring if negative. Back on tele for now. Troponin elevated, but pattern of slow decrease more c/w bump from surgery than from 04/16 event. Consider echo when available. (3) Anemia, blood loss: Status: Acute Assessment and plan: Stabilized, never got transfusion. Monitor for bleeding especially back on ASA. (4) Adenocarcinoma, colon: Start date: 04/09/25 Status: Acute Assessment and plan: - As above. -Chest CT showed multiple scattered bilateral tiny pulmonary nodules. Largest nodule is in the posterior right upper lobe which measures 9 by 4 millimeters. The findings are suspicious for metastatic disease. - Will need f/u with oncology f/u at discharge. (5) Giant cell arteritis: Status: Chronic Assessment and plan: -In remission, on home steroid regimen (6) Essential hypertension: Status: Chronic Assessment and plan: - Resume when patient taking PO again (7) Chronic obstructive lung disease: Status: Chronic Assessment and plan: -Continue home meds -IS and acapella s/p surgery (8) S/P TAVR (transcatheter aortic valve replacement): Status: Acute Assessment and plan: -On ASA only - bio-prosthetic valve (9) Hypomagnesemia: Status: Acute Assessment and plan: normal today (10) Elevated troponin: Assessment and plan: As above. resumed ASA and high intensity statin started. This has happened before with medical stressors. Likely reflects a degree of coronary disease but not c/w ACS (11) Trochanteric bursitis of right hip: Status: Acute Assessment and plan: traumatic, discussed supportive care Subjective Subjective Patient reports: bowel movement; denies vomiting, shortness of breath or fever Interval history since last seen: Events: Fall while goint from chair to bed 04/16 on left hip, patient was presyncopal Evaluatoin showed T wave flattening and positive troponins 216->140. no chest pain Episode of increased drainage from wound after cough overnight, bubble/prominence in scar Feels okay. pain about the same. Not nauseous now. right lateral hip sore when she lies on that side since fall. Exam Narrative Exam Narrative: Older female sitting up in bed, NGT in place but in no acute distress, Alert and oriented. Heart regular rhythm, 1-2/6 systolic murmur, lungs clear to auscultation bilaterally, abdomen hypoactive BS, soft, mild diffuse tenderness, with increased drainage on new dressing, with defect. Ext: no c/c/e. Tender over trochanter laterally on right. Objective Last Vital Signs Temp 36.5 C 04/17/25 11:10 Pulse 95 H 04/17/25 11:10 Resp 20 04/17/25 11:10 BP 147/68 H 04/17/25 11:10 Pulse Ox 96 04/17/25 11:10 Laboratory Results - last 24 hr 04/16/25 04/16/25 04/17/25 15:02 18:32 06:35 WBC 11.59 H RBC 3.27 L Hgb 8.6 L Hct 27.6 L MCV 84 MCH 26.3 L MCHC 31.2 L RDW 17.1 H Plt Count 369 MPV 9.6 Magnesium 2.0 Troponin I 216 H* 183 H* 140 H* PAWSS Have you Been Recently Intoxicated or Drunk Within the Last 30 days?: No Have you Ever Experienced Previous Episodes of Alcohol Withdrawal?: No Have you ever Experienced Withdrawal Seizures?: No Have you ever Experienced Delirium Tremens(DT)s?: No Have you ever undergone Alcohol Rehabilitation Treatment (i.e, inpt ot outpatient treatment programs)?: No Have you ever Experienced Blackouts?: No Have you ever Combined Alcohol with other Downers within the last 90 days?: No Have you ever Combined Alcohol with any other Substance of Abuse during the last 90 days?: No Positive Blood Alcohol level on Presentation? [PCS.BAL]: No Evidence of Increased Autonomic Activity (i.e. HR>120, tremor, sweating, agitation, nausea)?: No Result: 0 Time Spent with Patient Time Spent with Patient: 35-49 minutes Time was spent: preparing to see the patient(eg.review tests), obtaining and/or reviewing separately otained hiistory, ordering medications,tests, procedures, referring, communicating with other health home health care physician, indepentently interpreting results, counseling the patient and care coordination
--- NOTE | 2025-04-17 15:00 | PT.INNT ---
PT Notes Visit Reasons: Lower GIB Date: 04/17/25 Pt checked in with multiple times throughout the day. She had a CT scan this morning and is now fatigued while having increased stomach pain. Wishes to postpone PT treatment until tomorrow which I feel is appropriate. Educated on bed exercises including ankle pumps, quad sets, and glute sets she can work on throughout the night.
[2025-04-17 19:38] VITALS: BP 112/66; PULSE 93; RESP 20; TEMP 37.1; O2SAT 96
[2025-04-17] MEDS: Atorvastatin 40 MG TAB 80 MG PO (20:34)
[2025-04-17] MEDS: Aspirin E.C. 81 MG TABEC PO (20:34)
[2025-04-18] VITALS (7 sets, daily range): BP systolic 119–141; BP diastolic 56–75; PULSE 81–96; RESP 16–24; TEMP 35.7–37.8; O2SAT 95–98
[2025-04-18] MEDS: Ondansetron 4 MG/2 ML VIAL IVP ×3 (00:36→22:23)
[2025-04-18] MEDS: HYDROmorphone 2 MG TAB PO ×2 (00:51→06:23)
[2025-04-18] MEDS: POTASSIUM CHLORIDE/D5-0.45NACL 1,000 ML 100 MEQ IV (00:58)
[2025-04-18] MEDS: ACETAMINOPHEN 1,000 MG/100 ML BAG 400 MG IVPB ×3 (03:52→20:52)
[2025-04-18 06:46] LABS: Anion Gap 9.6 mmol/L (3-11); BUN 12 mg/dL (7-18); CO2 23.4 mmol/L (21.0-32.0); Calcium 7.5 mg/dL (8.5-10.1); Chloride 97 mmol/L (98-107); Estimated GFR 49.86 (mL/min/1.73m2); Glucose 116 mg/dL (74-106); Potassium 3.8 mmol/L (3.5-5.1); Sodium 130 mmol/L (136-145)
[2025-04-18] MEDS: Pantoprazole 40 MG VIAL IVP (08:03)
[2025-04-18] MEDS: amLODIPine 5 MG TAB PO (08:04)
[2025-04-18] MEDS: hydroCHLOROthiazide 25 MG TAB PO (08:04)
[2025-04-18] MEDS: Normal Saline Flush 10 ML SYR IVP ×4 (08:04→22:23)
[2025-04-18] MEDS: Metoprolol CR 25 MG TABCR PO (08:05)
--- NOTE | 2025-04-18 08:24 | PGE_ITS ---
Date of Service Date of service: 04/18/25 Time of Service: 11:30 Assessment and Plan Assessment and plan (1) Goals of care, counseling/discussion: Status: Acute Assessment and plan: 84-year-old woman with likely metastatic colon cancer who is postop 9 days from exploratory laparotomy complicated by prolonged ileus, possible bowel obstruction and fascia dehiscence resulting in a ventral hernia. While she remains hemodynamically stable, her GI tract is non-? functional and possibly blocked which is causing her nutritional situation this far postop to be dire and she would need to start TPN. Considering the cancer circumstances and all of her other comorbidities including chronic back pain that is not eligible for surgery because of her conditions, I think it is reasonable for her to consider comfort measures. It is hard to say if she would even tolerate a second surgery at this point but with certainty, another surgery would be a heavy stress for her. Dr. Hill and myself had a long and detailed family discussion with her at the bedside and all the family members where there in the discussion. They all agree that their mom has decided she does not want to have anything more done and wants to give up on any fighting. Her goals are going to be staying comfortable and that is it. We talked about the possibility of putting an NG tube in from palliative perspective since it will help stop the vomiting but she is not interested in having that at this time. She just wants to have pain medication, not have discomfort and not have anything else done. I think it is completely reasonable. She is of sound mind and the circumstances are not only acutely dire but if she were to make it through this hospitalization and recover, it would be to then face metastatic cancer and I am not certain that she would even be a candidate for chemotherapy. Overall plan: Comfort measures Subjective Subjective Interval history since last seen: Overnight the patient has had more vomiting. It comes and goes. She is really not tolerating p.o. intake. Each time she vomits she has abdominal pain. Her and her family have had a long and detailed discussion about the circumstances and everything going on. We had talked yesterday about the need for TPN if she is not able to take in food. At the bedside, she says I have had enough and I do not want anything more done. She does not want the tube back in her nose under any circumstances. She does not want to have another surgery under any circumstances. Exam Narrative Exam Narrative: Gen: Non-toxic, comfortable and interactive. Neuro: Alert and oriented x3 Psych: Good mood and affect. Good insight and understanding into condition. Chest: Non-labored breathing, no wheezing, no visible shortness of breath. Heart: Regular Objective Last Vital Signs Temp 97.7 F 04/18/25 08:23 Pulse 96 H 04/18/25 07:29 Resp 17 04/18/25 07:29 BP 141/75 H 04/18/25 07:29 Pulse Ox 98 04/18/25 07:29 Laboratory Results - last 24 hr 04/18/25 06:23 Sodium 130 L Potassium 3.8 Chloride 97 L Carbon Dioxide 23.4 Anion Gap 9.6 BUN 12 Creatinine 1.1 H Est GFR (CKD-EPI 2020) 49.86 Glucose 116 H Calcium 7.5 L PAWSS Have you Been Recently Intoxicated or Drunk Within the Last 30 days?: No Have you Ever Experienced Previous Episodes of Alcohol Withdrawal?: No Have you ever Experienced Withdrawal Seizures?: No Have you ever Experienced Delirium Tremens(DT)s?: No Have you ever undergone Alcohol Rehabilitation Treatment (i.e, inpt ot outpatient treatment programs)?: No Have you ever Experienced Blackouts?: No Have you ever Combined Alcohol with other Downers within the last 90 days?: No Have you ever Combined Alcohol with any other Substance of Abuse during the last 90 days?: No Positive Blood Alcohol level on Presentation? [PCS.BAL]: No Evidence of Increased Autonomic Activity (i.e. HR>120, tremor, sweating, agitation, nausea)?: No Result: 0 Time Spent with Patient Time Spent with Patient: >50 minutes Time was spent: preparing to see the patient(eg.review tests), obtaining and/or reviewing separately otained hiistory, referring, communicating with other health critical care clinical nurse specialist, indepentently interpreting results, counseling the p atient and care coordination
[2025-04-18] MEDS: Ketorolac 15 MG/ML VIAL IVP (09:21)
[2025-04-18] MEDS: MORPHine 2 MG/ML SYR IVP ×4 (09:44→22:38)
[2025-04-18] MEDS: Scopolamine 1 MG/3 DAYS PATCH TD (09:44)
--- NOTE | 2025-04-18 12:46 | PGE_ITS ---
Date of Service Date of service: 04/18/25 Time of Service: 12:46 Assessment and Plan Assessment and plan (1) Status post laparotomy: Status: Acute Assessment and plan: - Presented with lower GI bleed, which has resolved. - adenocarcinoma of colon on 03/23 colonoscopy pathology, surgical path pending - Now postop day 9 s/p Right hemicolectomy with ileocolic anastomosis 04/09 - Unfortunately Ileus 7/ PM, back to NPO. Tried to remove NGT again 04/17 but she hasn't done well. Reepat CT 04/17 shows ongoing ileus, inflammatory appearing fluid in peritoneum. - Discussed with the patient, family, Dr. Rivera (together in person) and PCP Dr. Lucas. She does not want more invasive interventions including central line/TPN or surgery. She wants to focus on comfort. She would like short term IV fluids for now. She is interested in going home with hospice if this can be arranged. (2) Anemia, blood loss: Status: Acute Assessment and plan: Stabilized, never got transfusion. Monitor for bleeding especially back on ASA. (3) Adenocarcinoma, colon: Start date: 04/09/25 Status: Acute Assessment and plan: - As above. -Chest CT showed multiple scattered bilateral tiny pulmonary nodules. Largest nodule is in the posterior right upper lobe which measures 9 by 4 millimeters. The findings are suspicious for metastatic disease. -She does not want to pursue chemotherapy/oncology evaluation on discharge. (4) Giant cell arteritis: Status: Chronic Assessment and plan: -In remission, was on home oral steroid regimen -Off since NPO, will use IV hydrocortisone to avoid adrenal insufficiency (5) Essential hypertension: Status: Chronic Assessment and plan: - holding as not taking po (6) Chronic obstructive lung disease: Status: Chronic Assessment and plan: -Continue home meds -IS and acapella s/p surgery (7) Elevated troponin: Assessment and plan: As above. resumed ASA and high intensity statin started, though not taking PO This has happened before with medical stressors. Likely reflects a degree of coronary disease but not c/w ACS Timing of slow decline suggests this was not related to presyncopal event/fall but rather to surgery. (8) Goals of care, counseling/discussion: Status: Acute Assessment and plan: She is very clear that she doesn't want further invasive intervention. See above. She is not fully GLOVE FINISHER, wants short term IVF. She may regain ability to eat with simply supportive care. Subjective Subjective Patient reports: nausea and vomiting; denies bowel movement, shortness of breath or fever Interval history since last seen: Events: NGT removed after discussion with surgeon. She tried to take liquids but didn't tolerate She was miserable last night vomiting. She doesn't want to go on like this. She doesn't want surgery or central line for TPN. She wants to focus on comfort Exam Narrative Exam Narrative: Older female sitting up in bed, fatigued, uncomfortable appearing, but alert and oriented. Heart regular rhythm, 2/6 systolic murmur, lungs clear to auscultation bilaterally, abdomen hypoactive BS, soft, moderate diffuse tenderness, with increased drainage on new dressing, with defect in mid incision. Ext: no c/c/e. Objective Last Vital Signs Temp 36.2 C L 04/18/25 11:32 Pulse 95 H 04/18/25 11:32 Resp 22 04/18/25 11:32 BP 141/68 H 04/18/25 11:32 Pulse Ox 97 04/18/25 11:32 Laboratory Results - last 24 hr 04/18/25 06:23 Sodium 130 L Potassium 3.8 Chloride 97 L Carbon Dioxide 23.4 Anion Gap 9.6 BUN 12 Creatinine 1.1 H Est GFR (CKD-EPI 2020) 49.86 Glucose 116 H Calcium 7.5 L PAWSS Have you Been Recently Intoxicated or Drunk Within the Last 30 days?: No Have you Ever Experienced Previous Episodes of Alcohol Withdrawal?: No Have you ever Experienced Withdrawal Seizures?: No Have you ever Experienced Delirium Tremens(DT)s?: No Have you ever undergone Alcohol Rehabilitation Treatment (i.e, inpt ot outpatient treatment programs)?: No Have you ever Experienced Blackouts?: No Have you ever Combined Alcohol with other Downers within the last 90 days?: No Have you ever Combined Alcohol with any other Substance of Abuse during the last 90 days?: No Positive Blood Alcohol level on Presentation? [PCS.BAL]: No Evidence of Increased Autonomic Activity (i.e. HR>120, tremor, sweating, agitation, nausea)?: No Result: 0 Time Spent with Patient Time Spent with Patient: >50 minutes Time was spent: preparing to see the patient(eg.review tests), obtaining and/or reviewing separately otained hiistory, ordering medications,tests, procedures, referring, communicating with other health career services representative, indepentently interpreting results, counseling the patient, care coordination and other (family meeting)
[2025-04-18] MEDS: Dexamethasone 4 MG/ML VIAL IVP (13:28)
[2025-04-18] MEDS: POTASSIUM CHLORIDE/D5-0.9%NACL 1,000 ML 100 MEQ IV (17:33)
--- NOTE | 2025-04-18 20:11 | W.PALLCONSUL ---
Date of service: 04/18/25 Time of Service: 16:00 History of Present Illness History of Present Illness Chief Complaint: End of life Narrative: Ruthie has been a long-term patient of mine. She states that she really wants to go home on hospice and live out the rest of her time at [place] house on the [address]. Unfortunately her children have voiced to Alesha and care management that they are unable to take care of her. Alesha has given them options for paid help. She has 2 friends in the room. She stated multiple times that she is done and wants to be comfortable. Nursing confirmed and patient told me that she has been vomiting most of the night. Consults Consult date: 04/18/25 Requesting physician: Ravi Jaramillo Assessment and Plan Assessment and plan (1) Goals of care, counseling/discussion: Status: Acute Assessment and plan: Ruthie felt comfortable talking in front of her friends. She repeatedly said that she was done fighting. She wants to be kept comfortable and she wants to . She wants to at home and go on hospice. Unfortunately she may not have a caregiver at this time. Family is looking into paid caregivers. She will need a hospice referral if appropriate. I have spoken to the hospitalist and care management team. I have spent more than 50% of time in counseling with this patient. Review of Systems Narrative: Nearly continued vomiting throughout the night. She is on Haldol. Additionally she is receiving IV fluids PFSH All Active Problems (Updated 04/19/25 @ 07:55 by Zoey Lucas MD, [place]) Vomiting (Acute) Comfort measures only status (Acute) Goals of care, counseling/discussion (Acute) Postoperative incisional hernia (Acute) Trochanteric bursitis of right hip (Acute) Postural dizziness with presyncope (Acute) Anemia, blood loss (Acute) Vomiting (bilious) following gastrointestinal surgery (Acute) Status post laparotomy (Acute) Hypomagnesemia (Acute) Tachycardia (Acute) GI bleeding (Chronic) On deep vein thrombosis (DVT) prophylaxis (Acute) CKD (chronic kidney disease) (Chronic) Lower gastrointestinal bleed (Acute) Adenocarcinoma, colon (Acute) Anemia (Chronic) Weight loss, abnormal (Acute) Thyroid goiter (Acute) Bruising (Acute) Lumbar stenosis with neurogenic claudication (Acute) Sciatica of left side due to displacement of lumbar intervertebral disc (Acute) S/P TAVR (transcatheter aortic valve replacement) (Acute) [facility] 11/17/21, Knee pain, right (Acute) Physician orders for life-sustaining treatment (POLST) form indicates patient wish for [id number] status (Acute) per conversation 01/21/2020. See visit note Osteoporosis (Chronic) Asthma (Acute) Chronic obstructive lung disease (Chronic 03/31/07) PFT's showing decreased FEV1 Essential hypertension (Chronic 10/19/13) Giant cell arteritis (Chronic 10/27/15) Hyperlipidemia (Chronic) Vitamin D deficiency (Chronic 01/19/09) Medical History (Updated 04/19/25 @ 07:55 by Zoey Lucas MD, [place]) Facial lesion Advance care planning Weight loss Diarrhea Incompatible blood transfusion Anti E antigen - need to order special blood for transfusions Pre-op testing Hip pain, right E. coli UTI Sepsis due to Escherichia coli Elevated troponin Hypokalemia Acute kidney injury superimposed on chronic kidney disease Shortness of breath Discharge planning issues DVT prophylaxis Acute UTI Sepsis Lumbar stenosis with neurogenic claudication MRI 06/06/21 - L3-4 herniation with severe stenosis Leg wound, left Back pain Aortic stenosis Ganglion of tendon sheath (01/11/05) History of unilateral nephrectomy Impacted cerumen Primary malignant neoplasm of lung (09/12/83) Swelling of left lower extremity (02/17/15) H/O unilateral nephrectomy left; congenital deformity Impacted cerumen Asthma 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; 1984 Lobectomy; 03/20 Neg CXR & Barium swallow Ganglion of tendon sheath 01/11/05 Ganglion cyst of R foot Left leg swelling 02/17/15 Neck mass see US 11/01 Anxiety (08/30/15) Cataract (11/19/16) Chronic cough Insomnia (10/08/17) Mass of right side of neck (02/28/16) Right hip pain (09/06/15) Skin lesion of face (08/30/15) 4mm by 2mm left upper lip Surgical History (Updated 04/14/25 @ 17:45 by Charisse Manley MD) Hx of colonoscopy with polypectomy (~03/2025) biopsy Status post cholecystectomy Status post lobectomy of lung S/P cholecystectomy S/P lobectomy of lung 10/14/83 left upper lobectomy; 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 Daughter No problems noted. Social History Smoking/Tobacco Use Status: Former Tobacco Use Quit Date: 10/14/83 Tobacco: How many years used: 15 Quit status: quit date established Second Hand Exposure: Yes Smoking risk assessment performed?: Yes Alcohol Intake: current Alcohol Intake frequency: holidays/special occasions only Alcohol type: wine Drug use: Never Substance use type: does not use Adopted: No Caregiver/Support person: No Foster care: No Household members: other Details: grandson Housing: house Number of Children: 3 number of grandchildren: 4 Communication Needs: None Do you need help understanding health information?: Rarely Pets and animals: No Sexually active: No Do you think of yourself as: straight/heterosexual Current gender identity: female What is your relationship status?: How often do you talk on the phone with friends or family?: three or more times per week How often do you get together with friends or relatives?: three or more times per week How often do you attend mormon or christianity services?: 4 or more times per year Do you belong to any clubs or organized social groups?: yes Panel score (0-1 are the most socially isolated patients): 3 What type of physical activity do you participate in: walking Duration: 15-30 minutes/day Frequency: daily [place]/Quaker: Mandaen Special [place] needs: No Agree to transfusion: Yes Seatbelt use: always Drive intox or ride w/intox pile driver operator: No Working smoke detector in home: Yes Carbon monox detector in home: Yes Firearms in home: Yes Firearms unloaded and locked: Yes Do you feel safe at home: Yes Do you feel safe in your relationship?: Yes Victim of physical abuse: No Victim of emotional abuse: No Victim of sexual abuse: No Would you like helpful sources: No Exam Narrative Exam Narrative: Alert oriented and has capacity. Emesis container is nearby. Her breathing is actually pretty darn good. I did not hear any rales. Her heart was normal. Results Last Vital Signs Temp 97.0 F L 04/18/25 19:44 Pulse 85 04/18/25 19:44 Resp 22 04/18/25 19:44 BP 119/60 04/18/25 19:44 Pulse Ox 95 04/18/25 19:44 Labs 04/17/25 06:35 04/18/25 06:23 Labs: Laboratory Results - last 24 hr 04/18/25 06:23 Sodium 130 L Potassium 3.8 Chloride 97 L Carbon Dioxide 23.4 Anion Gap 9.6 BUN 12 Creatinine 1.1 H Est GFR (CKD-EPI 2020) 49.86 Glucose 116 H Calcium 7.[address] scan - chest: report reviewed Time Spent Time Spent with Patient Time Spent(min): 47
[2025-04-18] MEDS: Hydrocortisone SOD SUC. 100 MG VIAL 15 MG IVP (20:50)
[2025-04-18] MEDS: Aspirin E.C. 81 MG TABEC PO (20:51)
[2025-04-18] MEDS: Atorvastatin 40 MG TAB 80 MG PO (20:51)
[2025-04-19 00:13] VITALS: BP 118/61; PULSE 77; RESP 20; TEMP 36.1; O2SAT 96
[2025-04-19] MEDS: Normal Saline Flush 10 ML SYR IVP ×4 (02:17→20:55)
[2025-04-19] MEDS: MORPHine 2 MG/ML SYR IVP ×7 (02:18→20:55)
[2025-04-19] MEDS: Ondansetron 4 MG/2 ML VIAL IVP ×3 (02:38→18:11)
[2025-04-19] MEDS: Haloperidol 5 MG/ML VIAL 1 MG IM/IV (04:57)
[2025-04-19] MEDS: ACETAMINOPHEN 1,000 MG/100 ML BAG 400 MG IVPB ×3 (05:02→20:54)
[2025-04-19] MEDS: POTASSIUM CHLORIDE/D5-0.9%NACL 1,000 ML 100 MEQ IV (05:02)
--- NOTE | 2025-04-19 07:53 | PCPN_ITS ---
Date of service: 04/19/25 Time of Service: 07:53 Assessment and Plan Assessment and plan (1) Comfort measures only status: Start date: 04/19/25 Status: Acute (2) Vomiting: Status: Acute Assessment and plan: I spoke with Dr. Muller and in keeping with the patient's wishes she is now comfort measures only. All unnecessary medications such as atorvastatin etc. have been stopped. To help with the vomiting I recommended octreotide 50 mcg 3 times daily. Also they may need to increase the steroids as she has been 9 years on steroids. She may need stress dose steroids this can also help with the vomiting. Dr. Contreras did give her Haldol which had minimal effect. It may be more helpful once the octreotide is on board. She wants her pain controlled. I would recommend frequent morphine IV, 2 to 5 mg every 30 minutes until she is comfortable and then 3 times daily scheduled She is asked me to contact her children. I have a note to katherine her adult day care worker to inform her family Again she stated I am done I do not want any more treatments that are going to prolong my life Discussed with nursing and hospitalist team Subjective Subjective Interval history since last seen: Ruthie had a terrible night. She states that she was throwing up all night. She states that she is done. She wants to . She does not want any treatments that we will prolong her life. She knows she cannot go home because of her level of discomfort. She wants to be VEGETABLE CANNER and at [facility]. Exam Narrative Exam Narrative: Ruthie has a emesis bag in her hand and spits up often during our time together. She is alert oriented and has capacity. She emphasized that she wants to . She is done with the discomfort done with the vomiting etc. She is slightly tacky. Her breathing is cut short with vomiting. Her abdomen is tender. Objective Last Vital Signs Temp 97.0 F L 04/19/25 00:13 Pulse 77 04/19/25 00:13 Resp 20 04/19/25 00:13 BP 118/61 04/19/25 00:13 Pulse Ox 96 04/19/25 00:13
[2025-04-19] MEDS: Pantoprazole 40 MG VIAL IVP (08:15)
[2025-04-19] MEDS: Hydrocortisone SOD SUC. 100 MG VIAL IVP (08:18)
--- NOTE | 2025-04-19 08:51 | CMPROGNOTE_ITS ---
Date of service: 04/19/25 Time of Service: 08:51 Care Management Progress Note Progress Note Text Progress Note Text: Ruthie was sitting up in bed when CM met with her. She had met with Dr. 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 All unnecessary medications and treatments were discontinued and additional comfort orders were placed. Ruthie informed CM that she is at peace with her decision, stating I am not afraid to . Apparently she had a very bad night and vomited several times; it was that which helped her to make the decision. Rtuhie's family had many questions about what to expect over the next few hours and days. They identified that they have family all over the country and wanted to know when they should recommend they come to say their goodbyes. CM reported that it would be difficult to answer that question with any degree of certainty, but offered to request another visit from Palliative Care and/or the provider. Dr. Jaramillo plans to meet with them this afternoon and Dr. Lucas agreed to meet with them at 7 am tomorrow. The family was appreciative of the opportunity to have these discussions. Discharge Potential Discharge Needs: Other (possible hospice consult) Anticipated Barriers to Discharge: None Identified Patient/Family Education Needs: Review discharge instructions, discuss Ask Me Three Transportation: Other (may possibly remain at [facility] for end of life care) Plan: Ruthie transitioned to comfort care this morning. It is likely she will remain at [facility] for end of life care. CM will follow and continue to offer support to Zeny and her family. Social Determinants of Health Screening Social Determinants of health last assessed in clinic: 04/13/25 Will the Patient Participate in the Screening?: Unable to obtain Do you worry about having a steady place to live?: yes What is your living situation today?: I have housing today, but am worried about losing it Problems where you live: no known problems In the past 12 months, have you had to go without electric, gas, oil or water in your home?: no Has lack of transportation kept you from medical appointments or from doing things needed for daily living?: no Has anyone in your life made you feel unsafe or unsupported?: no How hard is it for you to pay for the very basics like food, housing, medical care, and heating? Would you say it is:: Not hard at all Do you want help finding or keeping work or a job?: I do not need or want help If for any reason you need help with day-to-day activities such as bathing, preparing meals, shopping, managing finances, etc., do you get the help you need?: I don?t need any help How often do you feel lonely or isolated from those around you?: Never Do you speak a language other than German at home?: No Does the patient want assistance with any of the above?: No Health Related Social Needs Health related social needs: housing instability, housed, with risk of homelessness ([id number])
--- NOTE | 2025-04-19 08:57 | PT.INNT ---
PT Notes Visit Reasons: Lower GIB Zeny has had a change in medical status. After Palliative consult, pt is requesting Comfort measures Only at this time . Her focus of care is now on comfort. pt declines PT, therefore PT discontinued as of this date with last treatment participated in on 04/15/2025.
[2025-04-19 10:30] LABS: Anion Gap 11.6 mmol/L (3-11); BUN 24 mg/dL (7-18); CO2 20.4 mmol/L (21.0-32.0); Calcium 7.4 mg/dL (8.5-10.1); Chloride 97 mmol/L (98-107); Estimated GFR 29.57 (mL/min/1.73m2); Glucose 153 mg/dL (74-106); Potassium 4.7 mmol/L (3.5-5.1); Sodium 129 mmol/L (136-145)
--- NOTE | 2025-04-19 13:46 | PGE_ITS ---
Date of Service Date of service: 04/19/25 Time of Service: 13:46 Assessment and Plan Assessment and plan (1) Status post laparotomy: Status: Acute Assessment and plan: - Presented with lower GI bleed, which has resolved, adenocarcinoma of colon on 03/23 colonoscopy pathology, surgical path pending - Now postop day 10 s/p Right hemicolectomy with ileocolic anastomosis 04/09, but post op ileus x 2. - She does not want more invasive interventions including central line/TPN or surgery. She wants to focus on comfort, stopping all fluids see below. -Try marinol and octreotide to help with nausea (2) Adenocarcinoma, colon: Start date: 04/09/25 Status: Acute Assessment and plan: - As above. -Chest CT showed multiple scattered bilateral tiny pulmonary nodules. Largest nodule is in the posterior right upper lobe which measures 9 by 4 millimeters. The findings are suspicious for metastatic disease. -She does not want to pursue chemotherapy/oncology evaluation on discharge. (3) Giant cell arteritis: Status: Chronic Assessment and plan: -In remission, was on home oral steroid regimen -Off since NPO, will use IV hydrocortisone to avoid adrenal insufficiency -after discussion with Dr. Lucas, increase dose (4) Chronic obstructive lung disease: Status: Chronic Assessment and plan: -oxygen for comfort (5) Comfort measures only status: Status: Acute Assessment and plan: She decided she would like to stay here for end of life care. certified registered locksmith consulted, PCP/Palliative engaged. Subjective Subjective Patient reports: denies shortness of breath or fever Interval history since last seen: Still vomiting overnight Met with PCP/Palliative Lance, she would like full VIDEO CLERK Morphine helping pain, nausea is the worst thing. She isn't eating. She would like a pedro Exam Narrative Exam Narrative: Older female sitting up in bed, fatigued, comfortable appearing, but with emesis bag near, alert and oriented. Heart regular rhythm, 2/6 systolic murmur, lungs clear to auscultation bilaterally, abdomen hypoactive BS, soft, moderate diffuse tenderness, Ext: no c/c/e. Objective Last Vital Signs Temp 36.1 C L 04/19/25 00:13 Pulse 77 04/19/25 00:13 Resp 20 04/19/25 00:13 BP 118/61 04/19/25 00:13 Pulse Ox 96 04/19/25 00:13 Laboratory Results - last 24 hr 04/19/25 06:20 Sodium 129 L Potassium 4.7 Chloride 97 L Carbon Dioxide 20.4 L Anion Gap 11.6 H BUN 24 H Creatinine 1.7 H Est GFR (CKD-EPI 2020) 29.57 Glucose 153 H Calcium 7.4 L PAWSS Have you Been Recently Intoxicated or Drunk Within the Last 30 days?: No Have you Ever Experienced Previous Episodes of Alcohol Withdrawal?: No Have you ever Experienced Withdrawal Seizures?: No Have you ever Experienced Delirium Tremens(DT)s?: No Have you ever undergone Alcohol Rehabilitation Treatment (i.e, inpt ot outpatient treatment programs)?: No Have you ever Experienced Blackouts?: No Have you ever Combined Alcohol with other Downers within the last 90 days?: No Have you ever Combined Alcohol with any other Substance of Abuse during the last 90 days?: No Positive Blood Alcohol level on Presentation? [PCS.BAL]: No Evidence of Increased Autonomic Activity (i.e. HR>120, tremor, sweating, agitation, nausea)?: No Result: 0 Time Spent with Patient Time Spent with Patient: 35-49 minutes Time was spent: preparing to see the patient(eg.review tests), obtaining and/or reviewing separately otained hiistory, ordering medications,tests, procedures, referring, communicating with other health career placement services counselor, indepentently interpreting results, counseling the patient and care coordination
[2025-04-19] MEDS: Hydrocortisone SOD SUC. 100 MG VIAL 50 MG IVP (20:55)
[2025-04-20] MEDS: Normal Saline Flush 10 ML SYR IVP ×8 (00:16→23:06)
[2025-04-20] MEDS: MORPHine 2 MG/ML SYR IVP ×7 (00:32→23:06)
[2025-04-20] MEDS: Ondansetron 4 MG/2 ML VIAL IVP ×2 (00:32→04:51)
[2025-04-20] MEDS: ACETAMINOPHEN 1,000 MG/100 ML BAG 400 MG IVPB ×3 (04:50→20:21)
--- NOTE | 2025-04-20 07:30 | PCPN_ITS ---
Date of service: 04/20/25 Time of Service: 07:31 Assessment and Plan Assessment and plan (1) Comfort measures only status: Status: Acute (2) Hiccups: Status: Acute (3) Constipation: Status: Acute Assessment and plan: Ruthie is an 84-year-old woman who is on comfort measures. She is doing much better with the use of the octreotide decreasing her constant vomiting. She looks more relaxed. She is asking for the morphine rather than trying to dawson through the pain. Will continue with the octreotide. If she continues to improve and perhaps go home on hospice, octreotide does come in a Depo which would help her for 3 to 4 weeks Hiccups?probably due to sub diaphragm pressure. Will work on making certain that she has good bowel movements. Getting her up and out of bed would be helpful although now she has a catheter in place.(She finds the catheter very helpful and is happy that it has been put in ). I would recommend Thorazine as needed if the hiccups continue. I would first of all work on getting the bowels moving better. She states that it has been 11 days since she has had a bowel mo vement. I understand that she was cleaned out and had bowel surgery but it would be great if we can get things moving a little bit better Heartburn?probably due to something around her diaphragm such as pressure from constipation. She may do well with a suppository or an enema. she is already on Protonix IV. May also want to try pepcid IV to see if the addition of an H2 juan gives her some relief. I will continue to see Ruthie Please note I met with her 3 children and answered all questions that Ruthie and her children had. Discussed with staff and hospitalist team Subjective Subjective Interval history since last seen: Ruthie had a great night. She is no longer retching. She has not vomited. She is having hiccups and sometimes they last for a while. She has not had a bowel movement. She has required some morphine for the pain. She describes a heartburn in her epigastric region. Her family is around her. She states that she feels so much better now that she is not having a constant throwing up Exam Narrative Exam Narrative: Ruthie looks much much better. She was relaxed. Her heart is regular. Lungs much better airflow. Abdomen still not a lot of bowel sounds and I am reluctant to palpate too deeply because of her recent surgery. Objective Last Vital Signs Temp 97.0 F L 04/19/25 00:13 Pulse 77 04/19/25 00:13 Resp 20 04/19/25 00:13 BP 118/61 04/19/25 00:13 Pulse Ox 96 04/19/25 00:13 Laboratory Results - last 24 hr 04/19/25 04/20/25 06:20 05:35 Sodium 129 L Cancelled Potassium 4.7 Cancelled Chloride 97 L Cancelled Carbon Dioxide 20.4 L Cancelled Anion Gap 11.6 H Cancelled BUN 24 H Cancelled Creatinine 1.7 H Cancelled Est GFR (CKD-EPI 2020) 29.57 Cancelled Glucose 153 H Cancelled Calcium 7.4 L Cancelled
--- NOTE | 2025-04-20 07:36 | W.NUTRFU ---
Date of service: 04/20/25 Time of Service: 07:36 Nutrition Note NOTE: noted that patient, after prolonged NPO and intolerant of po solids and liquids, has decided to transition to CASE MANAGER SPECIALIST. no aggressive nutrition interventions/recommendations will be made at this time. will modfy tray status to hold and provide comfort cart/guest trays as appropriate for visitors. Time Spent in Nutritional Counseling and Treatment: 0
[2025-04-20] MEDS: Hydrocortisone SOD SUC. 100 MG VIAL IVP (07:51)
[2025-04-20] MEDS: Pantoprazole 40 MG VIAL IVP (07:52)
[2025-04-20] MEDS: chlorproMAZINE 25 MG TAB PO ×2 (09:30→18:38)
--- NOTE | 2025-04-20 14:08 | CHAPLAIN ---
Debby switched to comfort measures yesterday and told the Education Department Chair that she is not afraid of dying. Dr. Lucas is following her from Palliative Care and is also Debby's longtime PCP. Deborah's three children are here visiting. It was decided that she will stay here for end of life care. Today Deborah said she is feeling better after dealing with diarrhea and vomiting a lot yesterday. One of her sons was in the room with her. I let Zeny know that punchboard stuffer is available 06/05.
--- NOTE | 2025-04-20 15:13 | PGE_ITS ---
Date of Service Date of service: 04/20/25 Time of Service: 10:00 Assessment and Plan Assessment and plan (1) Status post laparotomy: Status: Acute Assessment and plan: - Presented with lower GI bleed, which has resolved, adenocarcinoma of colon on 03/23 colonoscopy pathology, surgical path pending - Now postop day 10 s/p Right hemicolectomy with ileocolic anastomosis 04/09, but post op ileus x 2. - She does not want more invasive interventions including central line/TPN or surgery. She wants to focus on comfort, stopping all fluids see below. -Try marinol and octreotide to help with nausea - Consider depot formulation of octreotide, not on formulary here (2) Adenocarcinoma, colon: Status: Acute Assessment and plan: - As above. -Chest CT showed multiple scattered bilateral tiny pulmonary nodules. Largest nodule is in the posterior right upper lobe which measures 9 by 4 millimeters. The findings are suspicious for metastatic disease. -She does not want to pursue chemotherapy/oncology evaluation on discharge. (3) Giant cell arteritis: Status: Chronic Assessment and plan: -In remission, was on home oral steroid regimen -Off since NPO, will use IV hydrocortisone to avoid adrenal insufficiency -after discussion with Dr. Lucas, increase dose (4) Chronic obstructive lung disease: Status: Chronic Assessment and plan: -oxygen for comfort (5) Comfort measures only status: Status: Acute Assessment and plan: She decided she would like to stay here for end of life care. medical scientist consulted, PCP/Palliative engaged. Subjective Subjective Interval history since last seen: N/V/D improved with octreotide [place] placed Exam Narrative Exam Narrative: General: This is an elderly woman, chronically ill-appearing, comfortable in bed HEENT: Normocephalic, atraumatic CV: regular rhythm with 2/6 systolic murmur Resp: CTAB Abd: soft, mildly tender diffusely Neuro: Awake and alert without focal deficits Objective Last Vital Signs Temp 36.1 C L 04/19/25 00:13 Pulse 77 04/19/25 00:13 Resp 20 04/19/25 00:13 BP 118/61 04/19/25 00:13 Pulse Ox 96 04/19/25 00:13 Laboratory Results - last 24 hr 04/20/25 05:35 Sodium Cancelled Potassium Cancelled Chloride Cancelled Carbon Dioxide Cancelled Anion Gap Cancelled BUN Cancelled Creatinine Cancelled Est GFR (CKD-EPI 2020) Cancelled Glucose Cancelled Calcium Cancelled PAWSS Have you Been Recently Intoxicated or Drunk Within the Last 30 days?: No Have you Ever Experienced Previous Episodes of Alcohol Withdrawal?: No Have you ever Experienced Withdrawal Seizures?: No Have you ever Experienced Delirium Tremens(DT)s?: No Have you ever undergone Alcohol Rehabilitation Treatment (i.e, inpt ot outpatient treatment programs)?: No Have you ever Experienced Blackouts?: No Have you ever Combined Alcohol with other Downers within the last 90 days?: No Have you ever Combined Alcohol with any other Substance of Abuse during the last 90 days?: No Positive Blood Alcohol level on Presentation? [PCS.BAL]: No Evidence of Increased Autonomic Activity (i.e. HR>120, tremor, sweating, agitation, nausea)?: No Result: 0 Time Spent with Patient Time Spent with Patient: <25 minutes Time was spent: preparing to see the patient(eg.review tests), obtaining and/or reviewing separately otained hiistory, ordering medications,tests, procedures, referring, communicating with other health critical care nurse specialist, indepentently interpreting results, counseling the patient and care coordination
--- NOTE | 2025-04-20 16:20 | CMPROGNOTE_ITS ---
Date of service: 04/20/25 Time of Service: 12:00 Care Management Progress Note Progress Note Text Progress Note Text: Zeny was sitting up in bed, visiting with her son Shady, when CM met with her today. She looked well. Was very pleasant and talkative, as was Shady. Zeny has a wood digital photo album at her bedside, and was very happy to tell some stories about her family. Zeny denied any needs. Discharge Potential Discharge Needs: Other (will remain at [facility] until end of life) Patient/Family Education Needs: Review discharge instructions, discuss Ask Me T hree Plan: Ruthie transitioned to comfort care yesterday. It is likely she will remain at [facility] for end of life care. CM will follow and continue to offer support to Zeny and her family. Social Determinants of Health Screening Social Determinants of health last assessed in clinic: 04/13/25 Will the Patient Participate in the Screening?: Unable to obtain Do you worry about having a steady place to live?: yes What is your living situation today?: I have housing today, but am worried about losing it Problems where you live: no known problems In the past 12 months, have you had to go without electric, gas, oil or water in your home?: no Has lack of transportation kept you from medical appointments or from doing things needed for daily living?: no Has anyone in your life made you feel unsafe or unsupported?: no How hard is it for you to pay for the very basics like food, housing, medical care, and heating? Would you say it is:: Not hard at all Do you want help finding or keeping work or a job?: I do not need or want help If for any reason you need help with day-to-day activities such as bathing, preparing meals, shopping, managing finances, etc., do you get the help you need?: I don?t need any help How often do you feel lonely or isolated from those around you?: Never Do you speak a language other than Amharic at home?: No Does the patient want assistance with any of the above?: No Health Related Social Needs Health related social needs: housing instability, housed, with risk of homelessness (Z59.811)
[2025-04-20] MEDS: Hydrocortisone SOD SUC. 100 MG VIAL 50 MG IVP (20:22)
--- NOTE | 2025-04-21 | DI.US_ITS ---
Exam(s) US UPPER EXTREMITY VENOUS RT EXAM: US UPPER EXTREMITY VENOUS RT CLINICAL HISTORY: infiltrated midline, query thrombosis TECHNIQUE: GRAYSCALE, COLOR, DOPPLER IMAGING OF THE VENOUS SYSTEM OF THE UPPER EXTREMITY-BILATERAL COMPARISON: US POCUS EXAM from 04/09/2025 FINDINGS: Median cubital vein: There is a 2 cm length intraluminal thrombus in the median cubital vein at the elbow level. This does not extend appreciably into the basilar vein. Basilic vein: Patent. Normal color-flow and normal compression and augmentation properties. Brachial vein(s):Patent. Normal color flow. Normal compression and augmentation properties. Cephalic vein:Patent. Normal color flow. Normal compression and augmentation properties. Axillary vein: Patent. Normal color flow. Normal compression and augmentation properties. Visualized subclavian vein: Patent. No obvious intraluminal thrombus. IMPRESSION: Positive study for the presence of intraluminal thrombus within the median cubital vein (approximately elbow level). Clot length is approximately 2 cm. DATA REPOSITORY:
[2025-04-21] MEDS: ACETAMINOPHEN 1,000 MG/100 ML BAG 400 MG IVPB ×3 (04:44→19:52)
[2025-04-21] MEDS: MORPHine 2 MG/ML SYR IVP ×4 (07:33→23:45)
[2025-04-21] MEDS: Normal Saline Flush 10 ML SYR IVP ×3 (07:34→23:45)
[2025-04-21] MEDS: Pantoprazole 40 MG VIAL IVP (07:34)
[2025-04-21] MEDS: Hydrocortisone SOD SUC. 100 MG VIAL IVP (07:35)
[2025-04-21 07:36] LABS: Anion Gap 11.6 mmol/L (3-11); BUN 46 mg/dL (7-18); CO2 21.4 mmol/L (21.0-32.0); Calcium 6.7 mg/dL (8.5-10.1); Chloride 99 mmol/L (98-107); Estimated GFR 22.95 (mL/min/1.73m2); Glucose 106 mg/dL (74-106); Potassium 4.5 mmol/L (3.5-5.1); Sodium 132 mmol/L (136-145)
[2025-04-21] MEDS: Scopolamine 1 MG/3 DAYS PATCH TD (10:17)
[2025-04-21] MEDS: Calcium Carbonate *TUMS* 500 MG CHEW PO ×3 (10:42→19:53)
--- NOTE | 2025-04-21 11:23 | CMPROGNOTE_ITS ---
Date of service: 04/21/25 Time of Service: 11:24 Care Management Progress Note Progress Note Text Progress Note Text: Ruthie was sitting up in bed visiting with her family when CM met with her. She was in good spirits and was smiling and engaged. She had her family bring in some of her clothes and had on a very becoming blue floral dress. She shared that it made her feel better than wearing the hospital green johnnies. Although Ruthie cannot really swallow much, she had some sips of coffee this morning, just on her tongue, which she stated tasted wonderful. She informed CM that she was planning to order some favored food items from the kitchen and at least taste it even if she can't swallow it. Discharge Potential Discharge Needs: Other (Ruthie will remain at [facility] for end of life care) Plan: Ruthie is now on comfort care. The plan, per provider, is for her to remain at [facility] for end of life care. She had hoped to go home on hospice however her family is all from out of state and she has no 06/05 caregiver. CM will follow and continue to offer support to Zeny and her family. Social Determinants of Health Screening Social Determinants of health last assessed in clinic: 04/13/25 Will the Patient Participate in the Screening?: Unable to obtain Do you worry about having a steady place to live?: yes What is your living situation today?: I have housing today, but am worried about losing it Problems where you live: no known problems In the past 12 months, have you had to go without electric, gas, oil or water in your home?: no Has lack of transportation kept you from medical appointments or from doing things needed for daily living?: no Has anyone in your life made you feel unsafe or unsupported?: no How hard is it for you to pay for the very basics like food, housing, medical care, and heating? Would you say it is:: Not hard at all Do you want help finding or keeping work or a job?: I do not need or want help If for any reason you need help with day-to-day activities such as bathing, preparing meals, shopping, managing finances, etc., do you get the help you need?: I don?t need any help How often do you feel lonely or isolated from those around you?: Never Do you speak a language other than Japanese at home?: No Does the patient want assistance with any of the above?: No Health Related Social Needs Health related social needs: housing instability, housed, with risk of homelessness (Z59.811)
--- NOTE | 2025-04-21 13:07 | PCPN_ITS ---
Date of service: 04/21/25 Time of Service: 07:00 Assessment and Plan Assessment and plan (1) Comfort measures only status: Status: Acute Assessment and plan: Zeny does not look as good as she did yesterday. Daughter is by the bedside. She was having a blood draw. Any additional blood draws will be canceled. She is on comfort measures. I did advance her diet from n.p.o. to anything she wan ts. She has received some clear and it really did not much appeal to her. She has not yet had a bowel movement. Hopefully a suppository or something like that might be helpful just to relieve some pressure. I did not ask about hiccups but she did not complain about these. Be certain to help with anxiety using the lorazepam. She seemed more anxious and a bit more uncomfortable. I will continue to follow Subjective Subjective Interval history since last seen: Patient is lying in bed. She looks more peaked than she did yesterday. She has not had a bowel movement. She is not willing to do anything that is going to be close to a bowel prep. (I assured her that we would not do that) she has a catheter in. Her daughter was in the room with her. She was getting blood draws when I walked in Exam Narrative Exam Narrative: Definitely more peaked than she was yesterday. She looks a bit feverish. Her heart is tachycardic. Objective Last Vital Signs Temp 97.0 F L 04/19/25 00:13 Pulse 77 04/19/25 00:13 Resp 20 04/19/25 00:13 BP 118/61 04/19/25 00:13 Pulse Ox 96 04/19/25 00:13 Laboratory Results - last 24 hr 04/21/25 06:50 Sodium 132 L Potassium 4.5 Chloride 99 Carbon Dioxide 21.4 Anion Gap 11.6 H BUN 46 H Creatinine 2.1 H Est GFR (CKD-EPI 2020) 22.95 Glucose 106 Calcium 6.7 L
--- NOTE | 2025-04-21 14:42 | PGE_ITS ---
Date of Service Date of service: 04/21/25 Time of Service: 08:00 Assessment and Plan Assessment and plan (1) Comfort measures only status: Status: Acute Assessment and plan: She decided she would like to stay here for end of life care. bungy jump master consulted, PCP/Palliative engaged. (2) Status post laparotomy: Status: Acute Assessment and plan: - Presented with lower GI bleed, which has resolved, adenocarcinoma of colon on 03/23 colonoscopy pathology, surgical path pending - Now postop day 10 s/p Right hemicolectomy with ileocolic anastomosis 04/09, but post op ileus x 2. - She does not want more invasive interventions including central line/TPN or surgery. She wants to focus on comfort, stopping all fluids see below. - Nausea relieved with octreotide. Depot formulation not available, back ordered at supplier. - Midline in place for IV medications. (3) Adenocarcinoma, colon: Status: Acute Assessment and plan: - As above. -Chest CT showed multiple scattered bilateral tiny pulmonary nodules. Largest nodule is in the posterior right upper lobe which measures 9 by 4 millimeters. The findings are suspicious for metastatic disease. -She does not want to pursue chemotherapy/oncology evaluation if discharged (4) Giant cell arteritis: Status: Chronic Assessment and plan: Continue steroids (5) Chronic obstructive lung disease: Status: Chronic Assessment and plan: -oxygen for comfort Subjective Subjective Interval history since last seen: Ms. Joe is not feeling as well as yesterday, but her hiccups have improved. No new complaints. Daughter at bedside. Exam Narrative Exam Narrative: General: This is an elderly woman, chronically ill-appearing, comfortable in bed HEENT: Normocephalic, atraumatic CV: regular rhythm with 2/6 systolic murmur Resp: CTAB Abd: soft, mildly tender diffusely Neuro: Awake and alert without focal deficits Objective Last Vital Signs Temp 36.1 C L 04/19/25 00:13 Pulse 77 04/19/25 00:13 Resp 20 04/19/25 00:13 BP 118/61 04/19/25 00:13 Pulse Ox 96 04/19/25 00:13 Laboratory Results - last 24 hr 04/21/25 06:50 Sodium 132 L Potassium 4.5 Chloride 99 Carbon Dioxide 21.4 Anion Gap 11.6 H BUN 46 H Creatinine 2.1 H Est GFR (CKD-EPI 2020) 22.95 Glucose 106 Calcium 6.7 L PAWSS Have you Been Recently Intoxicated or Drunk Within the Last 30 days?: No Have you Ever Experienced Previous Episodes of Alcohol Withdrawal?: No Have you ever Experienced Withdrawal Seizures?: No Have you ever Experienced Delirium Tremens(DT)s?: No Have you ever undergone Alcohol Rehabilitation Treatment (i.e, inpt ot outpatient treatment programs)?: No Have you ever Experienced Blackouts?: No Have you ever Combined Alcohol with other Downers within the last 90 days?: No Have you ever Combined Alcohol with any other Substance of Abuse during the last 90 days?: No Positive Blood Alcohol level on Presentation? [PCS.BAL]: No Evidence of Increased Autonomic Activity (i.e. HR>120, tremor, sweating, agitation, nausea)?: No Result: 0 Time Spent with Patient Time Spent with Patient: 25-34 minutes Time was spent: preparing to see the patient(eg.review tests), obtaining and/or reviewing separately otained hiistory, ordering medications,tests, procedures, referring, communicating with other health director of health care marketing, indepentently interpreting results, counseling the patient and care coordination
[2025-04-21] MEDS: Hydrocortisone SOD SUC. 100 MG VIAL 50 MG IVP (19:53)
[2025-04-21] MEDS: Octreotide 100 MCG/ML VIAL 50 MCG IVP (19:54)
[2025-04-22] MEDS: MORPHine 2 MG/ML SYR IVP ×7 (03:00→20:20)
[2025-04-22] MEDS: Octreotide 100 MCG/ML VIAL 50 MCG IVP ×3 (03:33→20:21)
[2025-04-22] MEDS: ACETAMINOPHEN 1,000 MG/100 ML BAG 400 MG IVPB ×3 (03:33→20:22)
[2025-04-22] MEDS: Calcium Carbonate *TUMS* 500 MG CHEW PO ×4 (03:51→20:25)
--- NOTE | 2025-04-22 07:26 | W.PALPGNOTE ---
Date of service: 04/22/25 Time of Service: 07:26 Assessment and Plan Assessment and plan (1) Comfort measures only status: Status: Acute Assessment and plan: Ruthie is doing quite well. She continues to have the obstruction. She is not interested in a suppository to help with constipation although she will do this if she has more heartburn or hiccups. She is getting Tums which helps. I asked her if she wanted to go to scheduled morphine. She does not she feels that she generally gets this quickly and it works. She really likes the IV Tylenol It would be good to change the morphine to IV if available and subcu if not available that way she would be able to get it and not have to wait for IV access Overall things are stable. Family knows that timetable is uncertain. I did speak with the hospitalist team regarding her care Subjective Subjective Interval history since last seen: Zeny had a time Of about 2 hours last night when she did not have IV access. She states that during this time her pain really escalated. She continues to get heartburn and occasional hiccups but they are not persistent. She has not had a bowel movement. She has not been out of bed nor does she want to. Exam Narrative Exam Narrative: Patient is lying in bed. Her son is in the room. She is speaking in complete sentences. She looks better than yesterday and comfortable. She does have some swelling around the IV access that blew yesterday Objective Last Vital Signs Temp 97.0 F L 04/19/25 00:13 Pulse 77 04/19/25 00:13 Resp 20 04/19/25 00:13 BP 118/61 04/19/25 00:13 Pulse Ox 96 04/19/25 00:13 Laboratory Results - last 24 hr 04/21/25 06:50 Sodium 132 L Potassium 4.5 Chloride 99 Carbon Dioxide 21.4 Anion Gap 11.6 H BUN 46 H Creatinine 2.1 H Est GFR (CKD-EPI 2020) 22.95 Glucose 106 Calcium 6.7 L
[2025-04-22] MEDS: Normal Saline Flush 10 ML SYR IVP ×4 (07:48→23:36)
[2025-04-22] MEDS: Pantoprazole 40 MG VIAL IVP (07:48)
[2025-04-22] MEDS: Hydrocortisone SOD SUC. 100 MG VIAL IVP (07:48)
--- NOTE | 2025-04-22 09:22 | PDOC.CMPRO ---
Date of service: 04/22/25 Time of Service: 09:22 Care Management Progress Note Progress Note Text Progress Note Text: Ruthie was sitting up in bed when CM met with her. She was smiling and chatting with her son Shady. She was wearing another pretty blue dress and stated again that she was tired of hospital green and wearing johnnies. Ruthie informed CM that she had had a difficult time last night. Her IV was not working and needed to be replaced. She had a midline inserted but was without IV access for a good couple of hours. Unfortunately she only has IV pain medication ordered so was unable to have any pain medicine throughout that time. She stated it took about 4 hours after the new IV insertion before her pain was able to be controlled. Ruthie shared that she told Dr. Lucas about it this morning and she stated she would order something that could be given IM or sc so that this would not happen again. Discharge Anticipated Barriers to Discharge: Medical Status Plan: Ruthie is now on comfort care. The plan, per provider, is for her to remain at [facility] for end of life care. She had hoped to go home on hospice however her family is all from out of state and she has no local / caregiver. will follow and continue to offer support to Ruthie and her family. Social Determinants of Health Screening Social Determinants of health last assessed in clinic: 04/13/25 Will the Patient Participate in the Screening?: Unable to obtain Do you worry about having a steady place to live?: yes What is your living situation today?: I have housing today, but am worried about losing it Problems where you live: no known problems In the past 12 months, have you had to go without electric, gas, oil or water in your home?: no Has lack of transportation kept you from medical appointments or from doing things needed for daily living?: no Has anyone in your life made you feel unsafe or unsupported?: no How hard is it for you to pay for the very basics like food, housing, medical care, and heating? Would you say it is:: Not hard at all Do you want help finding or keeping work or a job?: I do not need or want help If for any reason you need help with day-to-day activities such as bathing, preparing meals, shopping, managing finances, etc., do you get the help you need?: I don?t need any help How often do you feel lonely or isolated from those around you?: Never Do you speak a language other than [place] at home?: No Does the patient want assistance with any of the above?: No Health Related Social Needs Health related social needs: housing instability, housed, with risk of homelessness (Z59.811)
--- NOTE | 2025-04-22 16:35 | PGE_ITS ---
Date of Service Date of service: 04/22/25 Time of Service: 08:00 Assessment and Plan Assessment and plan (1) Comfort measures only status: Status: Acute Assessment and plan: She decided she would like to stay here for end of life care. rn unit manager consulted, PCP/Palliative engaged. (2) Status post laparotomy: Status: Acute Assessment and plan: - Presented with lower GI bleed, which has resolved, adenocarcinoma of colon on 03/23 colonoscopy pathology, surgical path pending - Now postop day 10 s/p Right hemicolectomy with ileocolic anastomosis 04/09, but post op ileus x 2. - She does not want more invasive interventions including central line/TPN or surgery. She wants to focus on comfort, stopping all fluids see below. - Nausea relieved with octreotide. Depot formulation not available, back ordered at supplier. - Midline replaced April 21 for IV medications. (3) Adenocarcinoma, colon: Status: Acute Assessment and plan: - As above. -Chest CT showed multiple scattered bilateral tiny pulmonary nodules. Largest nodule is in the posterior right upper lobe which measures 9 by 4 millimeters. The findings are suspicious for metastatic disease. -She does not want to pursue chemotherapy/oncology evaluation if discharged (4) Giant cell arteritis: Status: Chronic Assessment and plan: Steroids discontinued (5) Chronic obstructive lung disease: Status: Chronic Assessment and plan: -oxygen for comfort Subjective Subjective Interval history since last seen: Ms. Joe has a new midline and appears comfortable this morning. Exam Narrative Exam Narrative: General: This is an elderly woman, chronically ill-appearing, comfortable in bed on comfort care Objective Last Vital Signs Temp 36.1 C L 04/19/25 00:13 Pulse 77 04/19/25 00:13 Resp 20 04/19/25 00:13 BP 118/61 04/19/25 00:13 Pulse Ox 96 04/19/25 00:13 PAWSS Have you Been Recently Intoxicated or Drunk Within the Last 30 days?: No Have you Ever Experienced Previous Episodes of Alcohol Withdrawal?: No Have you ever Experienced Withdrawal Seizures?: No Have you ever Experienced Delirium Tremens(DT)s?: No Have you ever undergone Alcohol Rehabilitation Treatment (i.e, inpt ot outpatient treatment programs)?: No Have you ever Experienced Blackouts?: No Have you ever Combined Alcohol with other Downers within the last 90 days?: No Have you ever Combined Alcohol with any other Substance of Abuse during the last 90 days?: No Positive Blood Alcohol level on Presentation? [PCS.BAL]: No Evidence of Increased Autonomic Activity (i.e. HR>120, tremor, sweating, agitation, nausea)?: No Result: 0 Time Spent with Patient Time Spent with Patient: <25 minutes Time was spent: preparing to see the patient(eg.review tests), obtaining and/or reviewing separately otained hiistory, ordering medications,tests, procedures, referring, communicating with other health hospice home care coordinator, indepentently interpreting results, counseling the patient and care coordination
[2025-04-22] MEDS: Ondansetron 4 MG/2 ML VIAL IVP (20:21)
[2025-04-22] MEDS: Hydrocortisone SOD SUC. 100 MG VIAL 50 MG IVP (20:22)
[2025-04-22] MEDS: Bisacodyl 10 MG SUPP PR (21:59)
[2025-04-22] MEDS: MORPHine 2 MG/ML SYR 4 MG IVP ×2 (22:00→23:35)
[2025-04-22] MEDS: chlorproMAZINE 25 MG TAB PO (23:36)
[2025-04-23] MEDS: Normal Saline Flush 10 ML SYR IVP ×3 (00:52→17:26)
[2025-04-23] MEDS: MORPHine 2 MG/ML SYR 4 MG IVP ×6 (00:53→17:25)
[2025-04-23] MEDS: Calcium Carbonate *TUMS* 500 MG CHEW PO ×3 (00:53→21:49)
[2025-04-23] MEDS: ACETAMINOPHEN 1,000 MG/100 ML BAG 400 MG IVPB ×3 (03:37→18:43)
[2025-04-23] MEDS: Octreotide 100 MCG/ML VIAL 50 MCG IVP ×3 (03:37→18:42)
[2025-04-23] MEDS: Ondansetron 4 MG/2 ML VIAL IVP ×2 (05:59→16:01)
--- NOTE | 2025-04-23 10:11 | W.PALPGNOTE ---
Date of service: 04/23/25 Time of Service: 07:00 Assessment and Plan Assessment and plan (1) Comfort measures only status: Status: Acute Assessment and plan: Overall very comfortable. Attentive nurse last PM very good. Pt and son had good talks overnight. Continue with comfort care. It appears that she is actively dying. I expect it will be hours to days at this time. Family VERY appreciative of the good care from nursing Subjective Subjective Interval history since last seen: Pt asleep Son in room. States she was very comfortable overnight with an attentive nurse Exam Narrative Exam Narrative: Lying in bed. Arousable and O times 3 Breathing comfortably Objective Last Vital Signs Temp 97.0 F L 04/19/25 00:13 Pulse 77 04/19/25 00:13 Resp 20 04/19/25 00:13 BP 118/61 04/19/25 00:13 Pulse Ox 96 04/19/25 00:13
[2025-04-23] MEDS: Hydrocortisone SOD SUC. 100 MG VIAL IVP (12:28)
[2025-04-23] MEDS: Pantoprazole 40 MG VIAL IVP (12:29)
--- NOTE | 2025-04-23 14:58 | W.PM.PROGNOT ---
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 - She does not want more invasive interventions including central line/TPN or surgery. She wants to focus on comfort, stopping all fluids see below. - Nausea relieved with octreotide. Depot formulation not available, back ordered at supplier. - Midline replaced April 21 for IV medications. (3) Adenocarcinoma, colon: Status: Acute Assessment and plan: - As above. -Chest CT showed multiple scattered bilateral tiny pulmonary nodules. Largest nodule is in the posterior right upper lobe which measures 9 by 4 millimeters. The findings are suspicious for metastatic disease. -She does not want to pursue chemotherapy/oncology evaluation if discharged (4) Giant cell arteritis: Status: Chronic Assessment and plan: Steroids discontinued (5) Chronic obstructive lung disease: Status: Chronic Assessment and plan: -oxygen for comfort Subjective Subjective Interval history since last seen: Multiple family members present. Ms. Joe is likely in more pain, regimen will be increased. Exam Narrative Exam Narrative: General: This is an elderly woman, chronically ill-appearing, comfortable in bed on comfort care Objective Last Vital Signs Temp 36.1 C L 04/19/25 00:13 Pulse 77 04/19/25 00:13 Resp 20 04/19/25 00:13 BP 118/61 04/19/25 00:13 Pulse Ox 96 04/19/25 00:13 PAWSS Have you Been Recently Intoxicated or Drunk Within the Last 30 days?: No Have you Ever Experienced Previous Episodes of Alcohol Withdrawal?: No Have you ever Experienced Withdrawal Seizures?: No Have you ever Experienced Delirium Tremens(DT)s?: No Have you ever undergone Alcohol Rehabilitation Treatment (i.e, inpt ot outpatient treatment programs)?: No Have you ever Experienced Blackouts?: No Have you ever Combined Alcohol with other Downers within the last 90 days?: No Have you ever Combined Alcohol with any other Substance of Abuse during the last 90 days?: No Positive Blood Alcohol level on Presentation? [PCS.BAL]: No Evidence of Increased Autonomic Activity (i.e. HR>120, tremor, sweating, agitation, nausea)?: No Result: 0 Time Spent with Patient Time Spent with Patient: 25-34 minutes Time was spent: preparing to see the patient(eg.review tests), obtaining and/or reviewing separately otained hiistory, ordering medications,tests, procedures, referring, communicating with other health care advocate, indepentently interpreting results, counseling the patient and care coordination
--- NOTE | 2025-04-23 17:42 | CMPROGNOTE_ITS ---
Date of service: 04/23/25 Time of Service: 17:42 Care Management Progress Note Progress Note Text Progress Note Text: Ruthie reportedly had another bad night with vomiting and pain. The provider was contacted and ordered an increase in her pain medication dosage with a decrease in the interval between doses. It took a couple of hours, but her pain was finally able to be controlled. Dr. Lucas came to see her this morning and shared with the family that she thinks Ruthie may only have hours to days to live . She was sleeping this morning when CM stopped by and visited with her family and had been for a few hours. When CM returned later in the day, Ruthie was awake and alert and was surrounded by family. She was smiling and informed that her family had been bringing her some special treats. Ruthie is NPO however she can have sips and taste different flavors and textures in her mouth or on her tongue, which she enjoys. Discharge Plan: Ruthie is now on comfort care. The plan, per provider, is for her to remain at [facility] for end of life care. She had hoped to go home on hospice however her family is all from out of state and she has no local 06/05 caregiver. will follow and continue to offer support to Ruthie and her family. Social Determinants of Health Screening Social Determinants of health last assessed in clinic: 04/13/25 Will the Patient Participate in the Screening?: Unable to obtain Do you worry about having a steady place to live?: yes What is your living situation today?: I have housing today, but am worried about losing it Problems where you live: no known problems In the past 12 months, have you had to go without electric, gas, oil or water in your home?: no Has lack of transportation kept you from medical appointments or from doing things needed for daily living?: no Has anyone in your life made you feel unsafe or unsupported?: no How hard is it for you to pay for the very basics like food, housing, medical care, and heating? Would you say it is:: Not hard at all Do you want help finding or keeping work or a job?: I do not need or want help If for any reason you need help with day-to-day activities such as bathing, preparing meals, shopping, managing finances, etc., do you get the help you need?: I don?t need any help How often do you feel lonely or isolated from those around you?: Never Do you speak a language other than Spanish at home?: No Does the patient want assistance with any of the above?: No Health Related Social Needs Health related social needs: housing instability, housed, with risk of homelessness (Z59.811)
[2025-04-23] MEDS: Hydrocortisone SOD SUC. 100 MG VIAL 50 MG IVP (18:43)
[2025-04-24] MEDS: Calcium Carbonate *TUMS* 500 MG CHEW PO ×4 (02:22→06:34)
[2025-04-24] MEDS: Octreotide 100 MCG/ML VIAL 50 MCG IVP ×3 (02:42→20:38)
[2025-04-24] MEDS: Ondansetron 4 MG/2 ML VIAL IVP (02:43)
[2025-04-24] MEDS: ACETAMINOPHEN 1,000 MG/100 ML BAG 400 MG IVPB (02:43)
[2025-04-24] MEDS: Normal Saline Flush 10 ML SYR IVP ×4 (06:31→20:38)
[2025-04-24] MEDS: Prochlorperazine 10 MG/2 ML VIAL IVP (06:31)
[2025-04-24] MEDS: Hydrocortisone SOD SUC. 100 MG VIAL IVP (08:33)
[2025-04-24] MEDS: Pantoprazole 40 MG VIAL IVP (08:34)
[2025-04-24] MEDS: Scopolamine 1 MG/3 DAYS PATCH TD (12:14)
[2025-04-24] MEDS: Glycopyrrolate 0.2 MG/1 ML VIAL IVP ×3 (13:00→22:00)
--- NOTE | 2025-04-24 14:14 | W.PM.PROGNOT ---
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 - She does not want more invasive interventions including central line/TPN or surgery. She wants to focus on comfort, stopping all fluids see below. - Nausea relieved with octreotide. Depot formulation not available, back ordered at supplier. - Midline replaced April 21 for IV medications. (3) Adenocarcinoma, colon: Status: Acute Assessment and plan: - As above. -Chest CT showed multiple scattered bilateral tiny pulmonary nodules. Largest nodule is in the posterior right upper lobe which measures 9 by 4 millimeters. The findings are suspicious for metastatic disease. -She does not want to pursue chemotherapy/oncology evaluation if discharged (4) Giant cell arteritis: Status: Chronic Assessment and plan: Steroids discontinued (5) Chronic obstructive lung disease: Status: Chronic Assessment and plan: -oxygen for comfort Subjective Subjective Interval history since last seen: Multiple family members present. Pain management requiring increasing amounts of morphine. Exam Narrative Exam Narrative: General: This is an elderly woman, chronically ill-appearing, comfortable in bed on comfort care Objective Last Vital Signs Temp 36.1 C L 04/19/25 00:13 Pulse 77 04/19/25 00:13 Resp 20 04/19/25 00:13 BP 118/61 04/19/25 00:13 Pulse Ox 96 04/19/25 00:13 PAWSS Have you Been Recently Intoxicated or Drunk Within the Last 30 days?: No Have you Ever Experienced Previous Episodes of Alcohol Withdrawal?: No Have you ever Experienced Withdrawal Seizures?: No Have you ever Experienced Delirium Tremens(DT)s?: No Have you ever undergone Alcohol Rehabilitation Treatment (i.e, inpt ot outpatient treatment programs)?: No Have you ever Experienced Blackouts?: No Have you ever Combined Alcohol with other Downers within the last 90 days?: No Have you ever Combined Alcohol with any other Substance of Abuse during the last 90 days?: No Positive Blood Alcohol level on Presentation? [PCS.BAL]: No Evidence of Increased Autonomic Activity (i.e. HR>120, tremor, sweating, agitation, nausea)?: No Result: 0 Time Spent with Patient Time Spent with Patient: <25 minutes Time was spent: preparing to see the patient(eg.review tests), obtaining and/or reviewing separately otained hiistory, ordering medications,tests, procedures, referring, communicating with other health patient care assistant, indepentently interpreting results, counseling the patient and care coordination
[2025-04-24] MEDS: LORazepam 20 MG/10 ML VIAL IVP (16:42)
[2025-04-24] MEDS: Hydrocortisone SOD SUC. 100 MG VIAL 50 MG IVP (20:39)
[2025-04-25] MEDS: Octreotide 100 MCG/ML VIAL 50 MCG IVP ×3 (04:00→22:04)
[2025-04-25] MEDS: Normal Saline Flush 10 ML SYR IVP ×3 (09:30→12:59)
[2025-04-25] MEDS: Hydrocortisone SOD SUC. 100 MG VIAL IVP (09:30)
[2025-04-25] MEDS: Pantoprazole 40 MG VIAL IVP (09:31)
[2025-04-25] MEDS: Glycopyrrolate 0.2 MG/1 ML VIAL IVP (10:17)
--- NOTE | 2025-04-25 15:54 | W.PM.PROGNOT ---
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 - She does not want more invasive interventions including central line/TPN or surgery. She wants to focus on comfort, stopping all fluids see below. - Nausea relieved with octreotide. Depot formulation not available, back ordered at supplier. - Midline replaced April 21 for IV medications. (3) Adenocarcinoma, colon: Status: Acute Assessment and plan: - As above. -Chest CT showed multiple scattered bilateral tiny pulmonary nodules. Largest nodule is in the posterior right upper lobe which measures 9 by 4 millimeters. The findings are suspicious for metastatic disease. -She does not want to pursue chemotherapy/oncology evaluation if discharged (4) Giant cell arteritis: Status: Chronic Assessment and plan: Steroids discontinued (5) Chronic obstructive lung disease: Status: Chronic Assessment and plan: -oxygen for comfort Subjective Subjective Interval history since last seen: Mrs. Joe is declining more rapidly. She appears comfortable. Family members at bedside. Exam Narrative Exam Narrative: General: This is an elderly woman, chronically ill-appearing, comfortable in bed on comfort care Objective Last Vital Signs Temp 36.1 C L 04/19/25 00:13 Pulse 77 04/19/25 00:13 Resp 20 04/19/25 00:13 BP 118/61 04/19/25 00:13 Pulse Ox 96 04/19/25 00:13 PAWSS Have you Been Recently Intoxicated or Drunk Within the Last 30 days?: No Have you Ever Experienced Previous Episodes of Alcohol Withdrawal?: No Have you ever Experienced Withdrawal Seizures?: No Have you ever Experienced Delirium Tremens(DT)s?: No Have you ever undergone Alcohol Rehabilitation Treatment (i.e, inpt ot outpatient treatment programs)?: No Have you ever Experienced Blackouts?: No Have you ever Combined Alcohol with other Downers within the last 90 days?: No Have you ever Combined Alcohol with any other Substance of Abuse during the last 90 days?: No Positive Blood Alcohol level on Presentation? [PCS.BAL]: No Evidence of Increased Autonomic Activity (i.e. HR>120, tremor, sweating, agitation, nausea)?: No Result: 0 Time Spent with Patient Time Spent with Patient: <25 minutes Time was spent: preparing to see the patient(eg.review tests), obtaining and/or reviewing separately otained hiistory, ordering medications,tests, procedures, referring, communicating with other health hemodialysis patient care specialist, indepentently interpreting results, counseling the patient and care coordination
[2025-04-25] MEDS: LORazepam 20 MG/10 ML VIAL IVP ×2 (22:04→23:05)
[2025-04-25] MEDS: Hydrocortisone SOD SUC. 100 MG VIAL 50 MG IVP (22:05)
[2025-04-26] MEDS: LORazepam 20 MG/10 ML VIAL IVP ×5 (00:04→04:42)
--- NOTE | 2025-04-26 05:00 | W.PM.DDS ---
Date of service: 04/26/25 Time of Service: 05:00 Discharge Plan Disposition Patient Disposition: Discharge Details Reason For Visit: Lower GIB Admit Date/Time: 04/07/25 12:25 Admit Provider: Ravi Jaramillo Attending Provider: Ravi Jaramillo Primary Care Provider: Zoey Lucas Hospital Course Hospital Course: Zeny Joe presented April 07 with bloody stools in the context of recent biopsy of cecal tumor, with known colon adenocarcinoma. She had right hemicolectomy with ileocolic anastomosis on April 09. Postoperative course was challenging; as she was declining, palliative care was consulted on April 18. Mrs. Joe had been a patient in clinic with the palliative care service. Patient desired to return home to live out her remaining days. However she required medications not available in the home environment. She was placed on comfort care on April 19. Family was present at bedside for the duration and Mrs. Joe's pain and anxiety were well managed. She passed on April 26 at 04:50 am with family at bedside. Discharge Data Cause of : GI bleed not requiring more than 4 units of blood in 24 hours, ICU, or surgery Discharge Date/Time-TO BE ENTERED AT DEPARTURE: 04/26/25 04:50 Discharge Sum: Prov Provider Primary care physician: Zoey Lucas Attending physician on admission: Ravi Jaramillo Consults: 04/12/25 16:34 Physical Therapy Consult [CONS] Routine Consulting Provider: Jose Luis Barreto,InPatient Priority: Non-Urgent 04/13/25 07:55 Physical Therapy Consult [CONS] Routine Consulting Provider: Jose Luis Barreto,InPatient Priority: Non-Urgent Reson for Non-Urgent Priority: Limited Ability Comment: Zeny underwent laparotomy last week for colon cancer. 04/18/25 07:15 Palliative Care Consult [CONS] Routine Consultation Status:: Contact made by Clarification:: Manage/follow per spec. Reason for consult:: colon cancer, possible metastatic disease in lungs. s/p colectomy with complications 04/18/25 12:44 Clinic Charge Nurse Consult [CONS] Routine Consultation Status:: Follow-up needed Clarification:: Manage/follow per spec. Reason for consult:: shifting to comfort care after difficult post-op course for colon cancer 04/21/25 15:49 PICC [PICC/Midline Consult] [CONS] Routine Comment: Consultation Status:: Follow-up needed Clarification:: Manage/follow per spec. Reason for consult:: infiltrated RUE midline Type of Line to be Placed: Midline Pronouncing clinician: Kwabena Mcnair Discharge Sum: Diag PCOD Cause of : GI bleed not requiring more than 4 units of blood in 24 hours, ICU, or surgery Contributing Factors (1) Status post laparotomy: Contributing factors: - Presented with lower GI bleed, which has resolved, adenocarcinoma of colon on 03/23 colonoscopy pathology, surgical path pending - Now postop day 10 s/p Right hemicolectomy with ileocolic anastomosis 04/09, but post op ileus x 2. - She does not want more invasive interventions including central line/TPN or surgery. She wants to focus on comfort, stopping all fluids see below. - Nausea relieved with octreotide. Depot formulation not available, back ordered at supplier. - Midline replaced April 21 for IV medications. (2) Adenocarcinoma, colon: Contributing factors: -Chest CT showed multiple scattered bilateral tiny pulmonary nodules. Largest nodule is in the posterior right upper lobe which measures 9 by 4 millimeters. The findings are suspicious for metastatic disease. -She does not want to pursue chemotherapy/oncology evaluation if discharged (3) Giant cell arteritis: Contributing factors: Steroids discontinued (4) Chronic obstructive lung disease: Contributing factors: -oxygen for comfort Discharge Sum: Summary Date and Time Admission Date: 04/07/25 Date of : 04/26/25 Time of : 04:50 Summary Details: Patient was placed on comfort measures only status as of April 19. Family gathered at bedside. Palliative care service worked with hospitalists to ensure sufficient care to manage pain and anxiety. Octreotide was given to manage nausea. Over the course of 8 days she declined, with increasing needs for narcotics and sedation, and she on April 26 in the telegraph office manager, with family at bedside. Additional Data Attending Physician: Kwabena Mcnair Was code activated?: No Autopsy requested?: No forms examiner notified?: No
== END 2025-04-26 04:50 | disposition expired | DRG 330 ==
LOC: ER 09:37 → MS 14:48 → ICU 04-09 19:10 → MS 04-15 08:39 → ICU 05-03 09:19
PROVIDERS: Family Medicine; Nurse Practitioner Acute Care; Student in an Organized Health Care Education/Training Program; Surgery; Admitting Provider Family Medicine; Emergency Provider Physician Assistant; PCP Family Medicine; Responsible Provider Family Medicine; Visit Provider Family Medicine
PROC: 0DTF0ZZ Resection of Right Large Intestine, Open Approach (ICD-10-PCS; CPT 44140; principal; 2025-04-09 14:00)
DX: C18.0 Malignant neoplasm of cecum (principal); K92.1 Melena; Z95.3 Presence of xenogenic heart valve; N18.9 Chronic kidney disease, unspecified; Z90.5 Acquired absence of kidney; I12.9 Hypertensive chronic kidney disease with stage 1 through stage 4 chronic kidney disease, or unspecified chronic kidney disease; J45.909 Unspecified asthma, uncomplicated; Z90.2 Acquired absence of lung [part of]; Z85.118 Personal history of other malignant neoplasm of bronchus and lung; R53.1 Weakness; Z66 Do not resuscitate; E04.8 Other specified nontoxic goiter; E78.5 Hyperlipidemia, unspecified; R63.4 Abnormal weight loss; Z68.34 Body mass index [BMI] 34.0-34.9, adult; M31.6 Other giant cell arteritis; J44.9 Chronic obstructive pulmonary disease, unspecified; M81.0 Age-related osteoporosis without current pathological fracture; C78.01 Secondary malignant neoplasm of right lung; K91.30 Postprocedural intestinal obstruction, unspecified as to partial versus complete; T81.321A Disruption or dehiscence of closure of internal operation (surgical) wound of abdominal wall muscle or fascia, initial encounter; C78.02 Secondary malignant neoplasm of left lung; Z51.5 Encounter for palliative care; M48.062 Spinal stenosis, lumbar region with neurogenic claudication; M51.16 Intervertebral disc disorders with radiculopathy, lumbar region; D50.0 Iron deficiency anemia secondary to blood loss (chronic); E83.42 Hypomagnesemia; D72.829 Elevated white blood cell count, unspecified; R00.0 Tachycardia, unspecified; R76.8 Other specified abnormal immunological findings in serum; Y83.2 Surgical operation with anastomosis, bypass or graft as the cause of abnormal reaction of the patient, or of later complication, without mention of misadventure at the time of the procedure; R55 Syncope and collapse; W19.XXXA Unspecified fall, initial encounter; K43.2 Incisional hernia without obstruction or gangrene; M70.851 Other soft tissue disorders related to use, overuse and pressure, right thigh
CPT/HCPCS: 36410 ×2; 36620; 44140; 00123; 36415; 36430; 71250; 76942; 80048; 80053; 83690; 85027; 86850; 86900; 86901; 86920; 88305; 97162; 97530; 99231; 99285; J1650; 74018; 74177; 81003; 82378; 83605; 83735; 84484; 85025; 85610; 85730; 86870; 86880; 86905; 88307; 88309; 88361; 93005; 93010; 93971; 94667; 99223; 99232; 99233; J0131; J0360; J0665; J0666; J0690; J0780; J1100; J1171; J1596; J1630; J1644; J1720; J1885; J2003; J2060; J2270; J2354; J2404; J2405; J2470; J2598; J2704; J3010; J3475; J3480; J3490; J7512; P9016